=== PATIENT | female | born 1940 | race Caucasian/White ===

== ENCOUNTER 2017-10-13 19:45 | Emergency (ER) | payer MEDICARE, OTHER, MEDICAID ==
--- NOTE | 2017-10-13 20:28 | EDM.PDOC ---
ED HPI GENERAL MEDICAL PROBLEM - General Chief Complaint: Upper Extremity Injury/Pain Stated Complaint: shoulder injury Time Seen by Provider: 10/13/17 20:11 Source of Information: Reports: Patient, Family History Limitations: Reports: No Limitations - History of Present Illness INITIAL COMMENTS - FREE TEXT/NARRATIVE: Patient presents with left shoulder pain after falling in her apartment shortly before arrival. She tells me she was on a step-stool reaching something and was stepping down but caught her foot in between the first and second steps and fell on her left arm under her anterior torso. She denies any LOC or other injuries or pain. 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 She also had CABG/valve replacement and has been told she is not a surgical candidate. - Related Data Allergies Allergy/AdvReac Type Severity Reaction Status Date / Time latex Allergy Rash Verified 10/13/17 20:45 Home Meds: Home Meds Allopurinol [Zyloprim] 100 mg PO DAILY 09/29/17 [History] Aspirin 81 mg PO DAILY 09/29/17 [History] Calcium Carbonate/Vitamin D3 [Calcium Carbonate/Vitamin D 600 MG-200 Unit] 1 tab PO DAILY 09/29/17 [History] Cranberry Fruit Concentrate [Cranberry] 900 mg PO DAILY 09/29/17 [History] Docusate Sodium [Colace] 100 mg PO BID 09/29/17 [History] Dulaglutide [Trulicity] 0.5 ml SUBCUT WEEKLY 09/29/17 [History] Fenofibrate 160 mg PO DAILY 09/29/17 [History] Furosemide 20 mg pe PO ASDIRECTED 09/29/17 [History] Hydrocodone/Acetaminophen [Hydrocodon-Acetaminophen 5-325] 1 - 2 tab PO Q4H PRN 09/29/17 [History] Losartan [Cozaar] 25 mg PO DAILY 09/29/17 [History] Metoprolol Tartrate 100 mg PO BID 09/29/17 [History] Multivitamin [Multivitamins] 1 cap PO DAILY 09/29/17 [History] OLANZapine [ZyPREXA] 10 mg PO ASDIRECTED 09/29/17 [History] Omeprazole 20 mg PO Q2D 09/29/17 [History] Ondansetron [Zofran Odt] 8 mg PO Q6H PRN 09/29/17 [History] Polyethylene Glycol 3350 [MiraLAX] 17 gm PO DAILY 09/29/17 [History] Prochlorperazine [Compazine] 10 mg PO QID PRN 09/29/17 [History] Sennosides [Senokot] 8.6 mg PO DAILY 09/29/17 [History] Sertraline HCl 100 mg PO DAILY 09/29/17 [History] Simvastatin [Zocor] 40 mg PO DAILY 09/29/17 [History] Past Medical History HEENT History: Reports: Impaired Vision Other HEENT History: diabetic retinopathy Cardiovascular History: Reports: CAD, High Cholesterol, Hypertension Other Cardiovascular History: atrial flutter. aortic stenosis Gastrointestinal History: Reports: GERD Genitourinary History: Reports: Chronic Renal Insuffiency Other Genitourinary History: OVER ACTIVE BLADDER. 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 PERITONEAL - Infectious Disease History Infectious Disease History: Reports: Measles, Mumps - Past Surgical History Head Surgeries/Procedures: Reports: None HEENT Surgical History: Reports: None Cardiovascular Surgical History: Reports: Valve Replacement Other Cardiovascular Surgeries/Procedures: CABG. AORTIC VALVE REPLACEMENT GI Surgical History: Reports: Colostomy Female Surgical History: Reports: D&C, Hysterectomy, Salpingo-Oophorectomy Other Female Surgeries/Procedures: NODE DISSECTION Endocrine Surgical History: Reports: None Musculoskeletal Surgical History: Reports: None Social & Family History - Caffeine Use Caffeine Use: Reports: Coffee, Soda Other Caffeine Use: diet Review of Systems - Review of Systems Review Of Systems: See Below Constitutional: Denies: Chills, Fever, Weakness Eyes: Denies: Vision Change Ears: Denies: Dizziness, Pain Nose: Reports: No Symptoms Mouth/Throat: Reports: No Symptoms Respiratory: Reports: No Symptoms. Denies: Shortness of Breath Cardiovascular: Reports: No Symptoms. Denies: Chest Pain, Lightheadedness, Syncope GI/Abdominal: Denies: Nausea, Vomiting Genitourinary: Denies: Incontinence Musculoskeletal: Reports: Shoulder Pain. Denies: Neck Pain, Back Pain, Hand Pain, Leg Pain Skin: Reports: Bruising Neurological: Denies: Confusion, Dizziness, Headache, Numbness, Seizure, Syncope , Trouble Speaking, Difficulty Walking, Weakness Psychiatric: Denies: Confusion, Anxiety, Agitation ED EXAM, GENERAL - Physical Exam Exam: See Below Exam Limited By: No Limitations General Appearance: Alert, WD/WN, No Apparent Distress Eye Exam: Bilateral Eye: EOMI, Normal Inspection, PERRL Ears: Normal External Exam, Hearing Grossly Normal Nose: Normal Inspection, No Blood Throat/Mouth: Normal Inspection, Normal Lips, Normal Voice, No Airway Compromise Head: Atraumatic, Normocephalic Neck: Normal Inspection, Supple, Non-Tender, Full Range of Motion. No: Tender Lateral, Tender Midline Respiratory/Chest: No Respiratory Distress, Lungs Clear, Normal Breath Sounds, No Accessory Muscle Use Cardiovascular: Regular Rate, Rhythm, No Murmur GI/Abdominal: Normal Bowel Sounds, Soft, Non-Tender, No Organomegaly, No Distention Extremities: Other (Left arm is held close to torso. No obvious deformity but tender to touch in proximal humerus and painful with any movement of upper arm. Hand manager publishing and finger extension is 5/5. Distal CMS is intact throughout.) Neurological: Alert, Oriented, Normal Cognition, No Motor/Sensory Deficits Psychiatric: Normal Affect, Normal Mood Skin Exam: Warm, Dry, Intact, Normal Color, No Rash Course - Vital Signs Last Recorded V/S: Last Vital Signs Temp 98.6 F 10/13/17 20:15 Pulse 80 10/13/17 20:15 Resp 18 10/13/17 20:15 BP 171/40 H 10/13/17 20:15 Pulse Ox 92 L 10/13/17 20:15 - Orders/Labs/Meds Orders: Active Orders 24 hr Category Date Time Status Humerus Lt [CR] Stat Exams 10/13/17 20:23 Ordered Shoulder Comp Lt [CR] Stat Exams 10/13/17 19:49 Ordered - Re-Assessments/Exams Free Text/Narrative Re-Assessment/Exam: 10/13/17 20:57 Xrays show a displaced left humeral head fracture/impaction with possible anterior dislocation of the humeral head. Radiologist is uncertain if it is dislocated or just the fracture fragment. I called [facility] to consult ortho and am waiting for their call back. Patient is comfortable as long as she isn't moving her arm. 10/13/17 23:19 Radiologist confident there is no dislocation after reviewing both shoulder and humerus films. There have been technical difficulties getting the xrays to [facility] but should be done now and am waiting for the ortho surgeon to call me back. 10/13/17 23:44 Dr. Singer (ortho) called and we discussed case. Will immobilize shoulder and control pain. Patient will follow up with Dr. Singer on Wednesday here in his [facility] clinic. Patient remained stable and discharged to home with two nieces to help her. Departure - Departure Time of Disposition: 23:41 Disposition: Home, Self-Care 01 Condition: Good Clinical Impression: Closed fracture of left proximal humerus Qualifiers: Encounter type: initial encounter Fracture morphology: other fracture Fracture alignment: displaced Qualified Code(s): S42.292A - Other displaced fracture of upper end of left humerus, initial encounter for closed fracture - Discharge Information Instructions: Humerus Fracture Treated With Immobilization Forms: ED Department Discharge Additional Instructions: 1. Keep immobilizer on arm at all times except for showering or dressing. 2. Use the pain medications as directed. 3. Tomorrow morning call [facility] to make appt with Dr. Singer on Wednesday for orthopedic consultation. - My Orders Last 24 Hours: My Active Orders 10/13/17 19:49 Shoulder Comp Lt [CR] Stat 10/13/17 20:23 Humerus Lt [CR] Stat - Assessment/Plan Last 24 Hours: My Active Orders 10/13/17 19:49 Shoulder Comp Lt [CR] Stat 10/13/17 20:23 Humerus Lt [CR] Stat
[2017-10-13 20:45] VITALS: BP 171/40
== END 2017-10-13 23:55 | disposition home or self-care (01) ==
LOC: KA.ED 19:45
DX: S42.202A Unspecified fracture of upper end of left humerus, initial encounter for closed fracture (principal); W23.1XXA Caught, crushed, jammed, or pinched between stationary objects, initial encounter; E11.319 Type 2 diabetes mellitus with unspecified diabetic retinopathy without macular edema; K21.9 Gastro-esophageal reflux disease without esophagitis; I12.9 Hypertensive chronic kidney disease with stage 1 through stage 4 chronic kidney disease, or unspecified chronic kidney disease; E11.22 Type 2 diabetes mellitus with diabetic chronic kidney disease; N18.3 Chronic kidney disease, stage 3 (moderate); E78.00 Pure hypercholesterolemia, unspecified; Z79.82 Long term (current) use of aspirin; Z79.899 Other long term (current) drug therapy; Z91.040 Latex allergy status; W17.89XA Other fall from one level to another, initial encounter
CPT/HCPCS: 73030-LT; 73060-LT; 99284

== ENCOUNTER 2017-10-14 14:19 | Inpatient (IN) | payer MEDICARE, OTHER, MEDICAID ==
[2017-10-14] MEDS ORDERED: Aspirin 81 MG Tab.EC PO SCH (21:00)
[2017-10-14] MEDS ORDERED: Non-Formulary Medication 1 Each (Metoprolol Tartrate 100 MG) PO SCH (21:00)
[2017-10-14] MEDS: Aspirin 81 MG Tab.EC PO SCH (21:51)
[2017-10-14] MEDS: Acetaminophen/HYDROcodone 325-5 MG Tab PO PRN (21:51)
[2017-10-14] MEDS: Metoprolol Tartrate 50 MG Tab PO SCH (21:52)
[2017-10-14] MEDS: Cranberry Ext/C/L. Sporogenes Tab PO SCH (21:55)
[2017-10-15] MEDS: Acetaminophen/HYDROcodone 325-5 MG Tab PO PRN ×3 (06:10→20:24)
[2017-10-15] MEDS: Multivitamins with Minerals/Iron/Folic Acid/Lycopene Tab PO SCH (08:41)
[2017-10-15] MEDS: Losartan 25 MG Tab PO SCH (08:41)
[2017-10-15] MEDS: Furosemide 20 MG Tab PO SCH (08:41)
[2017-10-15] MEDS: Allopurinol 100 MG Tab PO SCH (08:42)
[2017-10-15] MEDS: Insulin Detemir 100 Units/ML 3 ML Pen SUBCUT SCH (08:42)
[2017-10-15] MEDS: Metoprolol Tartrate 50 MG Tab PO SCH ×2 (08:42→21:04)
[2017-10-15] MEDS ORDERED: Losartan 25 MG Tab PO SCH (09:00)
[2017-10-15] MEDS ORDERED: OLANZapine 5 MG Tab PO SCH (09:00)
[2017-10-15] MEDS ORDERED: Allopurinol 100 MG Tab PO SCH (09:00)
--- NOTE | 2017-10-15 10:05 | PCM.HP ---
H&P History of Present Illness - General Date of Service: 10/15/17 Admit Problem/Dx: Admission Diagnosis/Problem Admission Diagnosis/Problem Fracture of left humerus Source of Information: Patient, Old Records, RN History Limitations: Reports: No Limitations - History of Present Illness Initial Comments - Free Text/Narative: 76-year-old female was excepted directly into residential facility [facility] here after she sustained a traumatic left humeral fracture after a fall. Patient was stepping on a stepstool doing some overhead reaching and getting her feet caught between the steps landing on her anterior torso. She had no loss of consciousness she did not hit her head. 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 She is due to have intraperitoneal Pleurx catheter placed. Left Arm Pain Score (Numeric/FACES): 5 Lower Back Pain Score (Numeric/FACES): 6 - Related Data Allergies/Adverse Reactions: Allergies Allergy/AdvReac Type Severity Reaction Status Date / Time latex Allergy Rash Verified 10/14/17 14:44 Home Medications: Home Meds Allopurinol [Zyloprim] 100 mg PO DAILY 09/29/17 [History] Cranberry Fruit Concentrate [Cranberry] 900 mg PO BEDTIME 09/29/17 [History] Furosemide 20 mg PO DAILY 09/29/17 [History] Hydrocodone/Acetaminophen [Hydrocodon-Acetaminophen 5-325] 1 - 2 tab PO Q4H PRN 09/29/17 [History] Losartan [Cozaar] 25 mg PO DAILY 09/29/17 [History] Metoprolol Tartrate 100 mg PO BID 09/29/17 [History] Multivitamin [Multivitamins] 1 cap PO DAILY 09/29/17 [History] OLANZapine [ZyPREXA] 10 mg PO ASDIRECTED 09/29/17 [History] Omeprazole 20 mg PO SUTUTHSA@2100 09/29/17 [History] Polyethylene Glycol 3350 [MiraLAX] 17 gm PO DAILY PRN 09/29/17 [History] Prochlorperazine [Compazine] 10 mg PO QID PRN 09/29/17 [History] Sennosides [Senokot] 8.6 mg PO DAILY 09/29/17 [History] Sertraline HCl 100 mg PO BEDTIME 09/29/17 [History] Simvastatin [Zocor] 40 mg PO BEDTIME 09/29/17 [History] Aspirin [Halfprin] 81 mg PO BEDTIME 10/14/17 [History] Furosemide 20 mg PO SUTUTHSA@1700 10/14/17 [History] Insulin Degludec [Tresiba Flextouch U-100] 44 units SUBCUT DAILY 10/14/17 [ History] Ondansetron HCl [Ondansetron] 8 mg PO TID PRN 10/14/17 [History] Sennosides/Docusate Sodium [Senna Plus Tablet] 1 tab PO BEDTIME 10/14/17 [ History] Past Medical History HEENT History: Reports: Impaired Vision Other HEENT History: diabetic retinopathy Cardiovascular History: Reports: CAD, High Cholesterol, Hypertension Other Cardiovascular History: atrial flutter. aortic stenosis Gastrointestinal History: Reports: GERD Genitourinary History: Reports: Chronic Renal Insuffiency Other Genitourinary History: OVER ACTIVE BLADDER. 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 PERITONEAL - Infectious Disease History Infectious Disease History: Reports: Measles, Mumps - Past Surgical History Head Surgeries/Procedures: Reports: None HEENT Surgical History: Reports: None Cardiovascular Surgical History: Reports: Valve Replacement Other Cardiovascular Surgeries/Procedures: CABG. AORTIC VALVE REPLACEMENT GI Surgical History: Reports: Colostomy Female Surgical History: Reports: D&C, Hysterectomy, Salpingo-Oophorectomy Other Female Surgeries/Procedures: NODE DISSECTION Endocrine Surgical History: Reports: None Musculoskeletal Surgical History: Reports: None Social & Family History - Family History HEENT: Reports: None Cardiac: Reports: None Respiratory: Reports: None GI: Reports: None : Reports: None OBGYN: Reports: None Musculoskeletal: Reports: None Neurological: Reports: None Psychiatric: Reports: None Endocrine/Metabolic: Reports: None Hematologic: Reports: None Immunologic: Reports: None Dermatologic: Reports: None Oncologic: Reports: None, Colon (Father of colon cancer mid 70s, sister unknown cancer in her 50s also half sister with unknown cancer of the brain ) - Tobacco Use Smoking Status *Q: Never Smoker Second Hand Smoke Exposure: Yes - Caffeine Use Caffeine Use: Reports: Coffee, Soda Other Caffeine Use: diet - Recreational Drug Use Recreational Drug Use: No H&P Review of Systems - Review of Systems: Review Of Systems: See Below General: Reports: Weight Gain HEENT: Reports: No Symptoms Pulmonary: Reports: Wheezing. Denies: Shortness of Breath, Cough, Sputum Cardiovascular: Reports: Dyspnea on Exertion, Edema. Denies: Chest Pain Gastrointestinal: Reports: Constipation Genitourinary: Reports: Incontinence Musculoskeletal: Reports: Shoulder Pain Skin: Reports: Bruising, Change in Color. Denies: Pallor, Wound Psychiatric: Reports: No Symptoms Neurological: Reports: No Symptoms Hematologic/Lymphatic: Reports: Easy Bruising Immunologic: Reports: Other (Hx allergy) Exam - Exam Exam: See Below - Vital Signs Vital Signs: Last Vital Signs Temp 99.2 F 10/15/17 06:16 Pulse 72 10/15/17 08:42 Resp 18 10/15/17 06:16 BP 136/50 L 10/15/17 08:42 Pulse Ox 98 10/15/17 06:16 Weight: 229 lb 6.4 oz - Exam Quality Assessment: No: Supplemental Oxygen General: Alert HEENT: EACs Clear, Mucosa Moist & [place] Neck: Supple. No: JVD Lungs: Clear to Auscultation, Normal Respiratory Effort Cardiovascular: Regular Rate, Regular Rhythm GI/Abdominal Exam: Soft, No Mass, Other (Decreased bowel tones) (Female) Exam: Deferred Back Exam: No: CVA Tenderness (L), CVA Tenderness (R) Extremities: Pedal Edema (3+ BLE) Skin: Ecchymosis (Bruising left shoulder, right scapular) Neurological: Cranial Nerves Intact Neuro Extensive - Mental Status: Alert, Oriented x3, Normal Mood/Affect, Normal Cognition Neuro Extensive - Motor, Sensory, Reflexes: CN II-XII Intact Psychiatric: Alert, Normal Affect, Normal Mood - Patient Data Lab Results Last 24 hrs: Laboratory Results - last 24 hr 10/15/17 Range/Units 07:09 POC Glucose 221 H (74-106) mg/dl Problem List Initiated/Reviewed/Updated: Yes Orders Last 24hrs: Active Orders 24 hr Category Date Time Status Patient Status [ADT] Routine ADT 10/14/17 14:22 Ordered Ambulate [RC] DAILY Care 10/14/17 14:22 Active Blood Glucose Check, Bedside [RC] 0700 Care 10/14/17 18:33 Active Height and Weight [RC] TH Care 10/14/17 14:25 Active Immobilizer [RC] CONTINUOUS Care 10/14/17 18:28 Active Intake and Output [RC] 1400,2200,0600 Care 10/14/17 14:22 Active May Shower [RC] ASDIRECTED Care 10/14/17 14:22 Active Oxygen Therapy [RC] PRN Care 10/14/17 14:22 Active Up With Assistance [RC] DAILY Care 10/14/17 14:22 Active Up to Chair [RC] DAILY Care 10/14/17 14:22 Active VTE/DVT Education [RC] PER UNIT ROUTINE Care 10/14/17 14:22 Active Vital Signs [RC] 0700,1500 Care 10/14/17 14:22 Active Consult to Physical Therapy [PT Evaluation and Cons 10/15/17 08:08 Active Treatment] [CONS] Routine [employer] Diet [DIET] Diet 10/14/17 Dinner Active Acetaminophen/HYDROcodone [[place] 325-5 MG] Med 10/14/17 15:17 Active 1 tab PO Q4H PRN Allopurinol [Zyloprim] Med 10/15/17 09:00 Active 100 mg PO DAILY Aspirin [Halfprin] Med 10/14/17 21:00 Active 81 mg PO BEDTIME Cranberry Ext/C/L. Sporogenes [Azo Cranberry] Med 10/14/17 21:00 Active 2 each PO BEDTIME FA/Lycopene/Lut/MV,Ca,Iron,Min [Centrum] Med 10/15/17 09:00 Active 1 tab PO DAILY Furosemide [Lasix] Med 10/15/17 09:00 Active 20 mg PO DAILY Insulin Detemir [Levemir] Med 10/15/17 09:00 Active 44 unit SUBCUT DAILY Losartan [Cozaar] Med 10/15/17 09:00 Active 25 mg PO DAILY Metoprolol Tartrate [Lopressor] Med 10/14/17 21:00 Active 100 mg PO BID OLANZapine [ZyPREXA] Med 10/15/17 23:00 Active 10 mg PO 2300 Resuscitation Status Routine Resus Stat 10/14/17 16:29 Ordered Medication Orders Hydrocodone Bitart/Acetaminophen ([place] 325-5 Mg) 1 tab PO Q4H PRN PRN Reason: Pain Last Admin: 10/15/17 06:10 Dose: 1 tab Admin: 10/14/17 21:51 Dose: 1 tab Allopurinol (Zyloprim) 100 mg PO DAILY [facility] Last Admin: 10/15/17 08:42 Dose: 100 mg Aspirin (Halfprin) 81 mg PO BEDTIME [facility] Last Admin: 10/14/17 21:51 Dose: 81 mg Cranberry (Azo Cranberry) 2 each PO BEDTIME [facility] Last Admin: 10/14/17 21:55 Dose: Furosemide (Lasix) 20 mg PO DAILY [facility] Last Admin: 10/15/17 08:41 Dose: 20 mg Insulin Detemir (Levemir) 44 unit SUBCUT DAILY [facility] Last Admin: 10/15/17 08:42 Dose: 44 units Losartan Potassium (Cozaar) 25 mg PO DAILY [facility] Last Admin: 10/15/17 08:41 Dose: 25 mg Metoprolol Tartrate (Lopressor) 100 mg PO BID [facility] Last Admin: 10/15/17 08:42 Dose: 100 mg Admin: 10/14/17 21:52 Dose: 100 mg Multivitamins/Minerals (Centrum) 1 tab PO DAILY [facility] Last Admin: 10/15/17 08:41 Dose: 1 tab Olanzapine (Zyprexa) 10 mg PO 2300 [facility] Stop: 10/17/17 23:59 Assessment/Plan Comment:: HISTORY OF PRESENT ILLNESS 76-year-old female was excepted directly into residential facility [facility] here after she sustained a traumatic left humeral fracture after a fall. Patient was stepping on a stepstool doing some overhead reaching and getting her feet caught between the steps landing on her anterior torso. She had no loss of consciousness she did not hit her head. 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 She is due to have intraperitoneal Pleurx catheter placed. Pertinent ED workup Xrays show a displaced left humeral head fracture/impaction with possible anterior dislocation of the humeral head. Initially Radiologist was uncertain of dislocation however eventually concluded there was no dislocation involved Primary problem Left humeral fracture, sling and swath, PT evaluation Constipation, add senna S, and PRN MOM Bilateral leg edema, significant, no evidence of CHF Chronic problems stage IV Ovaian/uterus CA; T2 DM HLD HTN Aortic stenosis Hx CABG/valve replacement CAD Chronic kidney disease stage III Diabetic retinopathy Overactive bladder Obesity, BMI 40 Depression Reflux disease Osteoarthritis Consultations Dr. Singer on Wednesday for orthopedic consultation DR Gold Payton for Ultrasound Guided Paracentesis next week Overall plan, PT evaluation Keep immobilizer on arm at all times except for showering and/or ADL, orthopedic consultation at the clinic October 18, constipation prophylaxis, pain control measures, ,
[2017-10-15] MEDS: Cranberry Ext/C/L. Sporogenes Tab PO SCH (21:03)
[2017-10-15] MEDS: Aspirin 81 MG Tab.EC PO SCH (21:04)
[2017-10-15] MEDS: OLANZapine 5 MG Tab PO SCH (22:43)
[2017-10-16] MEDS: Furosemide 20 MG Tab PO SCH ×2 (08:49→17:03)
[2017-10-16] MEDS: Losartan 25 MG Tab PO SCH (08:49)
[2017-10-16] MEDS: Metoprolol Tartrate 50 MG Tab PO SCH ×2 (08:49→21:00)
[2017-10-16] MEDS: Multivitamins with Minerals/Iron/Folic Acid/Lycopene Tab PO SCH (08:50)
[2017-10-16] MEDS: Allopurinol 100 MG Tab PO SCH (08:50)
[2017-10-16] MEDS: Insulin Detemir 100 Units/ML 3 ML Pen SUBCUT SCH (08:50)
[2017-10-16] MEDS ORDERED: Magnesium Hydroxide 400 MG/5 ML Susp 30 ML Cup PO PRN (10:15)
[2017-10-16] MEDS: Acetaminophen/HYDROcodone 325-5 MG Tab PO PRN ×2 (13:45→23:13)
[2017-10-16] MEDS: Cranberry Ext/C/L. Sporogenes Tab PO SCH (20:59)
[2017-10-16] MEDS: Aspirin 81 MG Tab.EC PO SCH (21:01)
[2017-10-16] MEDS: OLANZapine 5 MG Tab PO SCH (23:13)
[2017-10-17] MEDS: Allopurinol 100 MG Tab PO SCH (09:27)
[2017-10-17] MEDS: Furosemide 20 MG Tab PO SCH ×2 (09:27→16:15)
[2017-10-17] MEDS: Multivitamins with Minerals/Iron/Folic Acid/Lycopene Tab PO SCH (09:27)
[2017-10-17] MEDS: Metoprolol Tartrate 50 MG Tab PO SCH ×2 (09:28→21:17)
[2017-10-17] MEDS: Losartan 25 MG Tab PO SCH (09:28)
[2017-10-17] MEDS: Insulin Detemir 100 Units/ML 3 ML Pen SUBCUT SCH (09:28)
[2017-10-17] MEDS: Acetaminophen/HYDROcodone 325-5 MG Tab PO PRN ×3 (09:36→21:30)
[2017-10-17] MEDS: Cranberry Ext/C/L. Sporogenes Tab PO SCH (21:15)
[2017-10-17] MEDS: Aspirin 81 MG Tab.EC PO SCH (21:16)
[2017-10-17] MEDS: OLANZapine 5 MG Tab PO SCH (22:27)
--- NOTE | 2017-10-18 08:33 | PCM.OPNOTE ---
- General Post-Op/Procedure Note Date of Surgery/Procedure: 10/18/17 Pre Op Diagnosis: Malignant Effusion. Anesthesia Technique: Other (see below) Primary Surgeon: Lisa Payton Condition: Good Free Text/Narrative:: Intake & Output 10/17/17 10/18/17 10/18/17 22:59 06:59 14:59 Intake Total 780 0 Balance 780 0
[2017-10-18] MEDS: Allopurinol 100 MG Tab PO SCH (09:25)
[2017-10-18] MEDS: Metoprolol Tartrate 50 MG Tab PO SCH ×2 (09:25→20:55)
[2017-10-18] MEDS: Losartan 25 MG Tab PO SCH (09:25)
[2017-10-18] MEDS: Multivitamins with Minerals/Iron/Folic Acid/Lycopene Tab PO SCH (09:25)
[2017-10-18] MEDS: Furosemide 20 MG Tab PO SCH (09:26)
[2017-10-18] MEDS: Insulin Detemir 100 Units/ML 3 ML Pen SUBCUT SCH (09:26)
[2017-10-18] MEDS: Acetaminophen/HYDROcodone 325-5 MG Tab PO PRN (20:55)
[2017-10-18] MEDS: Aspirin 81 MG Tab.EC PO SCH (20:55)
[2017-10-18] MEDS: Cranberry Ext/C/L. Sporogenes Tab PO SCH (20:55)
[2017-10-19] MEDS: Acetaminophen/HYDROcodone 325-5 MG Tab PO PRN ×2 (02:26→06:33)
[2017-10-19] MEDS: Insulin Detemir 100 Units/ML 3 ML Pen SUBCUT SCH (08:31)
[2017-10-19] MEDS: Furosemide 20 MG Tab PO SCH ×2 (08:32→16:35)
[2017-10-19] MEDS: Multivitamins with Minerals/Iron/Folic Acid/Lycopene Tab PO SCH (08:33)
[2017-10-19] MEDS: Allopurinol 100 MG Tab PO SCH (08:34)
[2017-10-19] MEDS: Losartan 25 MG Tab PO SCH (08:35)
[2017-10-19] MEDS: Metoprolol Tartrate 50 MG Tab PO SCH ×2 (08:35→21:48)
--- NOTE | 2017-10-19 11:38 | PCM.PN ---
- General Info Date of Service: 10/19/17 Functional Status: Reports: Tolerating Diet, Ambulating. Denies: Pain Controlled, New Symptoms - Review of Systems General: Reports: Weakness HEENT: Reports: No Symptoms Pulmonary: Reports: No Symptoms Cardiovascular: Reports: Edema Gastrointestinal: Reports: Constipation Genitourinary: Reports: Incontinence Musculoskeletal: Reports: Back Pain Skin: Reports: No Symptoms Neurological: Reports: Weakness Psychiatric: Reports: Anxiety - Patient Data Vitals - Most Recent: Last Vital Signs Temp 98.7 F 10/19/17 06:04 Pulse 72 10/19/17 08:35 Resp 18 10/19/17 06:04 BP 135/76 10/19/17 08:35 Pulse Ox 93 L 10/19/17 08:55 Weight - Most Recent: 229 lb 6.4 oz I&O - Last 24 Hours: Intake & Output 10/18/17 10/19/17 10/19/17 22:59 06:59 14:59 Intake Total 750 50 Balance 750 50 Lab Results Last 24 Hours: Laboratory Results - last 24 hr 10/19/17 10/19/17 10/19/17 Range/Units 06:36 07:00 07:00 WBC 5.0 (5.0-10.0) 10^3/uL RBC 2.42 L (3.80-5.50) 10^6/uL Hgb 7.5 L D (12.0-16.0) g/dL Hct 23.1 L (37.0-47.0) % MCV 95.3 H (82.0-92.0) fL MCH 30.9 (27.0-31.0) pg MCHC 32.4 (32.0-36.0) g/dL RDW 14.9 H (11.5-14.5) % Plt Count 79 L (150-300) 10^3/uL MPV 11.0 H (7.4-10.4) fL Neut % (Auto) 57.0 (50.0-70.0) % Lymph % (Auto) 33.9 (20.0-40.0) % [place] % (Auto) 5.6 (2.0-8.0) % Eos % (Auto) 2.3 (1.0-3.0) % Baso % (Auto) 1.2 H (0.0-1.0) % Neut # (Auto) 2.8 (2.5-7.0) 10^3/uL Lymph # (Auto) 1.7 (1.0-4.0) 10^3/uL [place] # (Auto) 0.3 (0.1-0.8) 10^3/uL Eos # (Auto) 0.1 (0.1-0.3) 10^3/uL Baso # (Auto) 0.1 (0.0-0.1) 10^3/uL Sodium 141 (136-145) mmol/L Potassium 4.2 (3.3-5.3) mmol/L Chloride 105 (98-115) mmol/L Carbon Dioxide 26.4 (21.0-32.0) mmol/L BUN 32 H (6-25) mg/dL Creatinine 1.40 H (0.51-1.17) mg/dL Est Cr Clr Drug Dosing 28.28 mL/min Estimated GFR (MDRD) 37 mL/min Glucose 98 (70-110) mg/dL POC Glucose 76 (74-106) mg/dl Calcium 9.0 (8.7-10.3) mg/dL Total Bilirubin 0.7 (0.2-1.0) mg/dL AST 36 (15-37) U/L ALT 26 (12-78) U/L Alkaline Phosphatase 41 L (46-116) IU/L Total Protein 6.2 L (6.4-8.2) g/dL Albumin 2.36 L (3.00-4.80) g/dL 10/19/17 Range/Units 07:41 WBC (5.0-10.0) 10^3/uL RBC (3.80-5.50) 10^6/uL Hgb (12.0-16.0) g/dL Hct (37.0-47.0) % MCV (82.0-92.0) fL MCH (27.0-31.0) pg MCHC (32.0-36.0) g/dL RDW (11.5-14.5) % Plt Count (150-300) 10^3/uL MPV (7.4-10.4) fL Neut % (Auto) (50.0-70.0) % Lymph % (Auto) (20.0-40.0) % [place] % (Auto) (2.0-8.0) % Eos % (Auto) (1.0-3.0) % Baso % (Auto) (0.0-1.0) % Neut # (Auto) (2.5-7.0) 10^3/uL Lymph # (Auto) (1.0-4.0) 10^3/uL [place] # (Auto) (0.1-0.8) 10^3/uL Eos # (Auto) (0.1-0.3) 10^3/uL Baso # (Auto) (0.0-0.1) 10^3/uL Sodium (136-145) mmol/L Potassium (3.3-5.3) mmol/L Chloride (98-115) mmol/L Carbon Dioxide (21.0-32.0) mmol/L BUN (6-25) mg/dL Creatinine (0.51-1.17) mg/dL Est Cr Clr Drug Dosing mL/min Estimated GFR (MDRD) mL/min Glucose (70-110) mg/dL POC Glucose 149 H (74-106) mg/dl Calcium (8.7-10.3) mg/dL Total Bilirubin (0.2-1.0) mg/dL AST (15-37) U/L ALT (12-78) U/L Alkaline Phosphatase (46-116) IU/L Total Protein (6.4-8.2) g/dL Albumin (3.00-4.80) g/dL Med Orders - Current: Current Medications Hydrocodone Bitart/Acetaminophen ([place] 325-5 Mg) 1 tab PO Q4H PRN PRN Reason: Pain Last Admin: 10/19/17 06:33 Dose: 1 tab Allopurinol (Zyloprim) 100 mg PO DAILY KIERA Last Admin: 10/19/17 08:34 Dose: 100 mg Aspirin (Halfprin) 81 mg PO BEDTIME KIERA Last Admin: 10/18/17 20:55 Dose: 81 mg Cranberry (Azo Cranberry) 2 each PO BEDTIME KIERA Last Admin: 10/18/17 20:55 Dose: 2 each Furosemide (Lasix) 20 mg PO DAILY KIERA Last Admin: 10/19/17 08:32 Dose: 20 mg Furosemide (Lasix) 20 mg PO SUTUTHSA@1700 [facility] Last Admin: 10/17/17 16:15 Dose: 20 mg Insulin Detemir (Levemir) 44 unit SUBCUT DAILY [facility] Last Admin: 10/19/17 08:31 Dose: 44 units Losartan Potassium (Cozaar) 25 mg PO DAILY [facility] Last Admin: 10/19/17 08:35 Dose: 25 mg Magnesium Hydroxide (Milk Of Magnesia) 30 ml PO DAILY PRN PRN Reason: Constipation Last Admin: 10/16/17 13:45 Dose: 30 ml Metoprolol Tartrate (Lopressor) 100 mg PO BID [facility] Last Admin: 10/19/17 08:35 Dose: 100 mg Multivitamins/Minerals (Centrum) 1 tab PO DAILY [facility] Last Admin: 10/19/17 08:33 Dose: 1 tab Senna/Docusate Sodium (Senna Plus) 1 tab PO BID [facility] Last Admin: 10/19/17 08:33 Dose: 1 tab Discontinued Medications Olanzapine (Zyprexa) 10 mg PO DAILY [facility] Stop: 10/17/17 23:00 Last Admin: 10/15/17 09:17 Dose: Not Given Olanzapine (Zyprexa) 10 mg PO 2300 [facility] Stop: 10/17/17 23:59 Last Admin: 10/17/17 22:27 Dose: 10 mg Senna/Docusate Sodium (Senna Plus) 1 tab PO DAILY [facility] Last Admin: 10/16/17 08:50 Dose: 1 tab - Exam Quality Assessment: No: Supplemental Oxygen General: Alert, Oriented, No Acute Distress Neck: No JVD Lungs: Clear to Auscultation, Normal Respiratory Effort Cardiovascular: Regular Rate, Regular Rhythm GI/Abdominal Exam: No: Distended Extremities: Pedal Edema Neurological: No New Focal Deficit Psy/Mental Status: Alert, Normal Affect, Normal Mood. No: Anxious - Problem List Review Problem List Initiated/Reviewed/Updated: Yes - Plan Plan:: HISTORY OF PRESENT ILLNESS 76-year-old female was excepted directly into correction facility [facility] here after she sustained a traumatic left humeral fracture after a fall. Patient was stepping on a stepstool doing some overhead reaching and getting her feet caught between the steps landing on her anterior torso. She had no loss of consciousness she did not hit her head. 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 She is due to have intraperitoneal Pleurx catheter placed. Pertinent ED workup Xrays show a displaced left humeral head fracture/impaction with possible anterior dislocation of the humeral head. Initially Radiologist was uncertain of dislocation however eventually concluded there was no dislocation involved Primary problem Left humeral fracture, sling and swath, PT evaluation Constipation, OIC, change to Movantik, Bilateral leg edema, significant, no evidence of CHF Anemia, Chronic problems stage IV Ovaian/uterus CA; T2 DM HLD HTN Aortic stenosis Hx CABG/valve replacement CAD Chronic kidney disease stage III Diabetic retinopathy Overactive bladder Obesity, BMI 40 Depression Reflux disease Osteoarthritis Consultations Had appointment with orthopedic surgeon 10/18/2017 Overall plan, add iron, add Movantik, monitor hemoglobin, may need transfusion, add when necessary lorazepam low-dose, PT evaluation Keep immobilizer on arm at all times except for showering and/or ADL, add Tylenol scheduled, change hydrocodone to oxycodone scheduled.
[2017-10-19] MEDS ORDERED: Iron Polysaccharides Complex 150 MG Cap PO SCH (11:45)
[2017-10-19] MEDS ORDERED: Naloxegol Oxalate 25 MG Tab PO SCH (11:45)
[2017-10-19] MEDS ORDERED: LORazepam 0.5 MG Tab PO PRN (11:45)
[2017-10-19] MEDS ORDERED: Acetaminophen 500 MG Tab PO SCH (12:00)
[2017-10-19] MEDS: Acetaminophen 500 MG Tab PO SCH ×2 (13:41→21:41)
[2017-10-19] MEDS: oxyCODONE 5 MG Tab PO SCH ×3 (13:44→22:53)
[2017-10-19] MEDS: Nystatin Topical Powder 15 GM Bottle TOP SCH ×2 (18:25→21:43)
[2017-10-19] MEDS: Cranberry Ext/C/L. Sporogenes Tab PO SCH (21:40)
[2017-10-19] MEDS: Aspirin 81 MG Tab.EC PO SCH (21:42)
[2017-10-20] MEDS: Nystatin Topical Powder 15 GM Bottle TOP SCH (05:50)
[2017-10-20] MEDS: Acetaminophen 500 MG Tab PO SCH (05:50)
[2017-10-20] MEDS: oxyCODONE 5 MG Tab PO SCH (05:51)
[2017-10-20] MEDS ORDERED: OLANZapine 5 MG Tab PO SCH (23:00)
--- NOTE | 2017-10-21 10:25 | PCM.DCSUM1 ---
Discharge Summary - Discharge Data Discharge Date: 10/20/17 Discharge Disposition: DC/Tfer to Acute Hospital 02 Condition: Good - Patient Summary/Data Consults: Consultations 10/15/17 08:08 Consult to Physical Therapy [PT Evaluation and Treatment] [CONS] Routine - Discharge Plan Home Medications: Home Meds Allopurinol [Zyloprim] 100 mg PO DAILY 09/29/17 [History] Cranberry Fruit Concentrate [Cranberry] 900 mg PO BEDTIME 09/29/17 [History] Furosemide 20 mg PO DAILY 09/29/17 [History] Hydrocodone/Acetaminophen [Hydrocodon-Acetaminophen 5-325] 1 - 2 tab PO Q4H PRN 09/29/17 [History] Losartan [Cozaar] 25 mg PO DAILY 09/29/17 [History] Metoprolol Tartrate 100 mg PO BID 09/29/17 [History] Multivitamin [Multivitamins] 1 cap PO DAILY 09/29/17 [History] OLANZapine [ZyPREXA] 10 mg PO ASDIRECTED 09/29/17 [History] Omeprazole 20 mg PO SUTUTHSA@2100 09/29/17 [History] Polyethylene Glycol 3350 [MiraLAX] 17 gm PO DAILY PRN 09/29/17 [History] Prochlorperazine [Compazine] 10 mg PO QID PRN 09/29/17 [History] Sennosides [Senokot] 8.6 mg PO DAILY 09/29/17 [History] Sertraline HCl 100 mg PO BEDTIME 09/29/17 [History] Simvastatin [Zocor] 40 mg PO BEDTIME 09/29/17 [History] Aspirin [Halfprin] 81 mg PO BEDTIME 10/14/17 [History] Furosemide 20 mg PO SUTUTHSA@1700 10/14/17 [History] Insulin Degludec [Tresiba Flextouch U-100] 44 units SUBCUT DAILY 10/14/17 [ History] Ondansetron HCl [Ondansetron] 8 mg PO TID PRN 10/14/17 [History] Sennosides/Docusate Sodium [Senna Plus Tablet] 1 tab PO BEDTIME 10/14/17 [ History] - Discharge Summary/Plan Comment DC Time >30 min.: No Discharge Summary/Plan Comment: Final diagnosis Anemia Left humeral fracture stage IV Ovaian/uterus CA; Brief history 76-year-old female was excepted directly into shelter facility [facility] here after she sustained a traumatic left humeral fracture after a fall. Patient was stepping on a stepstool doing some overhead reaching and getting her feet caught between the steps landing on her anterior torso. She had no loss of consciousness she did not hit her head. 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 She went to [facility] for scheduled intraperitoneal Pleurx catheter placed and they decided to keep her for blood transfusion chemotherapy and monitoring her after the catheter placed. Hospital course, Hospital course went quite well other than requiring slightly increase in pain medication. hgb did decrease to 7.5 however she was hemodynamically stable. No fever she was released for appointment with Dr. Singer orthopedic surgeon at this time not a surgical candidate, I did add Movantik due to slight opioid induced constipation, placed on iron, sling and swath was kept on, she did receive a therapeutic paracentesis by Dr. Gold Payton. - Patient Data Vitals - Most Recent: Last Vital Signs Temp 97.6 F 10/20/17 06:21 Pulse 74 10/20/17 06:21 Resp 18 10/20/17 06:21 BP 127/46 L 10/20/17 06:21 Pulse Ox 96 10/20/17 06:21 Weight - Most Recent: 229 lb 6.4 oz VERITO Results - Last 24 hrs: Microbiology 10/19/17 16:50 Gram Stain - Final Wound - Buttock, Unspecified Med Orders - Current: Current Medications Discontinued Medications Acetaminophen (Tylenol Extra Strength) 1,000 mg PO Q8H [facility] Acetaminophen (Tylenol Extra Strength) 1,000 mg PO Q8HR [facility] Last Admin: 10/20/17 05:50 Dose: 1,000 mg Hydrocodone Bitart/Acetaminophen ([place] 325-5 Mg) 1 tab PO Q4H PRN PRN Reason: Pain Last Admin: 10/19/17 06:33 Dose: 1 tab Allopurinol (Zyloprim) 100 mg PO DAILY KIERA Last Admin: 10/19/17 08:34 Dose: 100 mg Aspirin (Halfprin) 81 mg PO BEDTIME KIERA Last Admin: 10/19/17 21:42 Dose: Not Given Cranberry (Azo Cranberry) 2 each PO BEDTIME [facility] Last Admin: 10/19/17 21:40 Dose: 2 each Furosemide (Lasix) 20 mg PO DAILY [facility] Last Admin: 10/19/17 08:32 Dose: 20 mg Furosemide (Lasix) 20 mg PO SUTUTHSA@1700 [facility] Last Admin: 10/19/17 16:35 Dose: 20 mg Insulin Detemir (Levemir) 44 unit SUBCUT DAILY [facility] Last Admin: 10/19/17 08:31 Dose: 44 units Lorazepam (Ativan) 0.25 mg PO Q8H PRN PRN Reason: Anxiety Losartan Potassium (Cozaar) 25 mg PO DAILY [facility] Last Admin: 10/19/17 08:35 Dose: 25 mg Magnesium Hydroxide (Milk Of Magnesia) 30 ml PO DAILY PRN PRN Reason: Constipation Last Admin: 10/16/17 13:45 Dose: 30 ml Metoprolol Tartrate (Lopressor) 100 mg PO BID [facility] Last Admin: 10/19/17 21:48 Dose: 100 mg Multivitamins/Minerals (Centrum) 1 tab PO DAILY [facility] Last Admin: 10/19/17 08:33 Dose: 1 tab Naloxegol (Movantik) 25 mg PO DAILY [facility] Last Admin: 10/19/17 13:41 Dose: 25 mg Nystatin (Nystop) 0 gm TOP BID [facility] Last Admin: 10/20/17 05:50 Dose: 1 applic Olanzapine (Zyprexa) 10 mg PO DAILY [facility] Stop: 10/17/17 23:00 Last Admin: 10/15/17 09:17 Dose: Not Given Olanzapine (Zyprexa) 10 mg PO 2300 [facility] Stop: 10/17/17 23:59 Last Admin: 10/17/17 22:27 Dose: 10 mg Olanzapine (Zyprexa) 10 mg PO 2300 [facility] Stop: 10/24/17 02:00 Oxycodone HCl (Oxycodone) 5 mg PO Q6HR [facility] Last Admin: 10/20/17 05:51 Dose: 5 mg Polysaccharide Iron Complex (Ferrex 150) 150 mg PO DAILY [facility] Last Admin: 10/19/17 13:41 Dose: 150 mg Senna/Docusate Sodium (Senna Plus) 1 tab PO DAILY [facility] Last Admin: 10/16/17 08:50 Dose: 1 tab Senna/Docusate Sodium (Senna Plus) 1 tab PO BID [facility]IERA Last Admin: 10/19/17 08:33 Dose: 1 tab Senna/Docusate Sodium (Senna Plus) 1 tab PO BID PRN PRN Reason: Constipation
== END 2017-10-20 06:45 | DRG 560 ==
LOC: KA.MS 14:19
PROVIDERS: ADMIT Nurse Practitioner Family; ATTEND Internal Medicine
PROC: 0W9G3ZZ Drainage of Peritoneal Cavity, Percutaneous Approach (ICD-10-PCS; principal; 2017-10-18)
DX: S42.302D Unspecified fracture of shaft of humerus, left arm, subsequent encounter for fracture with routine healing (principal); C48.2 Malignant neoplasm of peritoneum, unspecified; C79.82 Secondary malignant neoplasm of genital organs; I48.92 Unspecified atrial flutter; J91.0 Malignant pleural effusion; Z68.41 Body mass index [BMI] 40.0-44.9, adult; Z51.5 Encounter for palliative care; R60.9 Edema, unspecified; W11.XXXD Fall on and from ladder, subsequent encounter; K59.03 Drug induced constipation; T40.2X5A Adverse effect of other opioids, initial encounter; E11.319 Type 2 diabetes mellitus with unspecified diabetic retinopathy without macular edema; I25.10 Atherosclerotic heart disease of native coronary artery without angina pectoris; E78.00 Pure hypercholesterolemia, unspecified; K21.9 Gastro-esophageal reflux disease without esophagitis; I12.9 Hypertensive chronic kidney disease with stage 1 through stage 4 chronic kidney disease, or unspecified chronic kidney disease; E11.22 Type 2 diabetes mellitus with diabetic chronic kidney disease; N18.3 Chronic kidney disease, stage 3 (moderate); E66.9 Obesity, unspecified; M19.90 Unspecified osteoarthritis, unspecified site; N32.81 Overactive bladder; F32.9 Major depressive disorder, single episode, unspecified; Z91.040 Latex allergy status; Z79.899 Other long term (current) drug therapy; Z79.4 Long term (current) use of insulin; Z95.1 Presence of aortocoronary bypass graft; Z95.2 Presence of prosthetic heart valve
CPT/HCPCS: 36415; 49082; 80053; 82962; 85025; 87070; 87205; 97110-GP; 97162-GP; A9270-GY; J1815-GY

== ENCOUNTER 2017-10-22 14:17 | Inpatient (IN) | payer MEDICARE, OTHER, MEDICAID ==
[2017-10-22] MEDS ORDERED: Prochlorperazine 5 MG Tab PO PRN (18:51)
[2017-10-22] MEDS ORDERED: OLANZapine 5 MG Tab PO SCH (19:00)
--- NOTE | 2017-10-22 19:43 | PCM.HP ---
H&P History of Present Illness - General Date of Service: 10/22/17 Admit Problem/Dx: Admission Diagnosis/Problem Admission Diagnosis/Problem Fracture of left humerus Source of Information: Patient, Old Records, RN History Limitations: Reports: No Limitations - Related Data Allergies/Adverse Reactions: Allergies Allergy/AdvReac Type Severity Reaction Status Date / Time latex Allergy Rash Verified 10/22/17 14:19 Home Medications: Home Meds Allopurinol [Zyloprim] 100 mg PO DAILY 09/29/17 [History] Cranberry Fruit Concentrate [Cranberry] 900 mg PO BEDTIME 09/29/17 [History] Furosemide 20 mg PO DAILY 09/29/17 [History] Hydrocodone/Acetaminophen [Hydrocodon-Acetaminophen 5-325] 1 - 2 tab PO Q4H PRN 09/29/17 [History] Losartan [Cozaar] 25 mg PO DAILY 09/29/17 [History] Multivitamin [Multivitamins] 1 cap PO DAILY 09/29/17 [History] Omeprazole 20 mg PO SUTUTHSA@2100 09/29/17 [History] Polyethylene Glycol 3350 [MiraLAX] 17 gm PO DAILY PRN 09/29/17 [History] Prochlorperazine [Compazine] 10 mg PO QID PRN 09/29/17 [History] Sertraline HCl 100 mg PO BEDTIME 09/29/17 [History] Simvastatin [Zocor] 40 mg PO BEDTIME 09/29/17 [History] Aspirin [Halfprin] 81 mg PO BEDTIME 10/14/17 [History] Furosemide 20 mg PO SUTUTHSA@1700 10/14/17 [History] Insulin Degludec [Tresiba Flextouch U-100] 44 units SUBCUT DAILY 10/14/17 [ History] Ondansetron HCl [Ondansetron] 8 mg PO TID PRN 10/14/17 [History] Acetaminophen [Extra Strength Non-Aspirin] 1,000 mg PO Q8H 10/22/17 [History] Iron Polysaccharide Complex [Ferric X-150] 150 mg PO DAILY 10/22/17 [History] LORazepam 0.25 mg PO Q8H PRN 10/22/17 [History] Magnesium Hydroxide [Milk of Magnesia] 30 ml PO DAILY PRN 10/22/17 [History] Metoprolol Tartrate 50 mg PO BID 10/22/17 [History] Naloxegol Oxalate [Movantik] 25 mg PO DAILY 10/22/17 [History] Nystatin [Nystop] 1 applic TOP BID 10/22/17 [History] OLANZapine [ZyPREXA] 10 mg PO ASDIRECTED 10/22/17 [History] Sennosides/Docusate Sodium [Senna Plus Tablet] 1 tab PO BID PRN 10/22/17 [ History] oxyCODONE 5 mg PO Q6H 10/22/17 [History] Past Medical History HEENT History: Reports: Impaired Vision Other HEENT History: diabetic retinopathy Cardiovascular History: Reports: CAD, High Cholesterol, Hypertension Other Cardiovascular History: atrial flutter. aortic stenosis Gastrointestinal History: Reports: GERD, Other (See Below) Other Gastrointestinal History: malignant ascites with pleurix drain placed to right upper abdomen on 10/20/17 Genitourinary History: Reports: Chronic Renal Insuffiency Other Genitourinary History: OVER ACTIVE BLADDER. CKD STAGE III [employer] History: Reports: Musculoskeletal History: Reports: Osteoarthritis Psychiatric History: Reports: Depression Endocrine/Metabolic History: Reports: Diabetes, Type II Immunologic History: Reports: Immunosuppression Other Oncologic History: ENDOMETRIAL. PERITONEAL - Infectious Disease History Infectious Disease History: Reports: Measles, Mumps - Past Surgical History Head Surgeries/Procedures: Reports: None HEENT Surgical History: Reports: None Cardiovascular Surgical History: Reports: Valve Replacement Other Cardiovascular Surgeries/Procedures: CABG. AORTIC VALVE REPLACEMENT GI Surgical History: Reports: Colostomy Female Surgical History: Reports: D&C, Hysterectomy, Salpingo-Oophorectomy Other Female Surgeries/Procedures: NODE DISSECTION Endocrine Surgical History: Reports: None Musculoskeletal Surgical History: Reports: None Social & Family History - Family History Oncologic: Reports: Brain ([id number]-[id number] cancer), Colon (father-mid 70s- ), Other (See Below) (sister-unknown primary cancer in 50s-) - Tobacco Use Smoking Status *Q: Never Smoker - Caffeine Use Caffeine Use: Reports: Coffee, Soda Other Caffeine Use: diet - Recreational Drug Use Recreational Drug Use: No - Living Situation & Occupation Living situation: Reports: Single Occupation: Retired H&P Review of Systems - Review of Systems: Review Of Systems: See Below General: Denies: Fever, Chills, Weakness, Fatigue, Decreased Appetite HEENT: Reports: Glasses, Other (canker sore to right inner cheek). Denies: Ear Pain, Headaches, Rhinitis, Sinus Congestion, Sore Throat Pulmonary: Denies: Shortness of Breath, Cough, Sputum Cardiovascular: Reports: Dyspnea on Exertion, Edema. Denies: Chest Pain Gastrointestinal: Reports: Abdominal Pain (intermittent), Constipation. Denies : Diarrhea, Decreased Appetite, Nausea, Vomiting Genitourinary: Reports: Incontinence (chronic). Denies: Dysuria, Frequency Musculoskeletal: Reports: Other (Denies left shoulder/arm pain) Neurological: Denies: Dizziness, Headache Immunologic: Reports: No Symptoms Exam - Exam Exam: See Below - Vital Signs Vital Signs: Last Vital Signs Temp 97.4 F 10/22/17 19:00 Pulse 16 L 10/22/17 19:00 Resp 16 10/22/17 19:00 BP 166/65 H 10/22/17 19:00 Pulse Ox 98 10/22/17 19:00 Weight: 239 lb 12.8 oz - Exam Quality Assessment: DVT Prophylaxis (Phan stockings). No: Supplemental Oxygen, Urinary Catheter General: Alert, Oriented, Cooperative HEENT: Conjunctiva Clear, Hearing Intact, Mucosa Moist & [place], Posterior Pharynx Clear, TMs Clear, Glasses, Other (pin point canker sore noted to right inner cheek) Neck: Supple, Trachea Midline. No: Lymphadenopathy Lungs: Clear to Auscultation, Normal Respiratory Effort Cardiovascular: Regular Rate, Regular Rhythm, Normal S1, Normal S2, Systolic Murmur GI/Abdominal Exam: Normal Bowel Sounds, Soft, Non-Tender, Distended (mild) Extremities: Pedal Edema (1-2+ pitting edema to BLE and feet) Skin: Warm, Dry, Intact, Other (RL has dressing in place for pleurx tubing). No: Wound Neuro Extensive - Mental Status: Alert, Oriented x3, Normal Mood/Affect, Normal Cognition, Memory Intact Psychiatric: Alert, Normal Affect, Normal Mood Problem List Initiated/Reviewed/Updated: Yes Orders Last 24hrs: Active Orders 24 hr Category Date Time Status Patient Status [ADT] Routine ADT 10/22/17 19:30 Ordered Blood Glucose Check, Bedside [RC] BIDAC Care 10/22/17 19:30 Ordered Communication Order [RC] DAILY Care 10/22/17 18:50 Active Communication Order [RC] DAILY Care 10/22/17 19:34 Ordered Height and Weight [RC] PER UNIT ROUTINE Care 10/22/17 19:32 Ordered Intake and Output [RC] QSHIFT Care 10/22/17 19:32 Ordered May Shower [RC] ASDIRECTED Care 10/22/17 19:30 Ordered Oxygen Therapy [RC] PRN Care 10/22/17 19:30 Ordered Up With Assistance [RC] ASDIRECTED Care 10/22/17 19:30 Ordered VTE/DVT Education [RC] PER UNIT ROUTINE Care 10/22/17 19:30 Ordered Vital Signs [RC] PER UNIT ROUTINE Care 10/22/17 19:30 Ordered PT Evaluation and Treatment [CONS] Routine Cons 10/22/17 19:30 Ordered [place] [employer] Diet [DIET] Diet 10/22/17 Dinner Ordered Acetaminophen [Tylenol Extra Strength] Med 10/22/17 19:00 Active 1,000 mg PO Q8H Acetaminophen/HYDROcodone [B[place] 325-5 MG] Med 10/22/17 18:51 Active 1 - 2 tab PO Q4H PRN Allopurinol [Zyloprim] Med 10/23/17 09:00 Active 100 mg PO DAILY Aspirin [Halfprin] Med 10/22/17 21:00 Active 81 mg PO BEDTIME Cranberry Ext/C/L. Sporogenes [Azo Cranberry] Med 10/22/17 21:00 Active 1 each PO BEDTIME Docusate Sodium/Sennosides [Senna Plus] Med 10/22/17 18:51 Active 1 tab PO BID PRN FA/Lycopene/Lut/MV,Ca,Iron,Min [Centrum] Med 10/23/17 09:00 Active 1 tab PO DAILY Furosemide [Lasix] Med 10/23/17 09:00 Active 20 mg PO DAILY Furosemide [Lasix] Med 10/23/17 17:00 Active 20 mg PO SUTUTHSA@1700 Insulin Degludec Med 10/23/17 09:00 Pending 44 units SUBCUT DAILY Insulin Detemir [Levemir] Med 10/23/17 09:00 Ordered 44 unit SUBCUT DAILY Iron Polysaccharides Complex [Ferrex 150] Med 10/23/17 09:00 Active 150 mg PO DAILY LORazepam [Ativan] Med 10/22/17 18:51 Active 0.25 mg PO Q8H PRN Losartan [Cozaar] Med 10/23/17 09:00 Active 25 mg PO DAILY Magnesium Hydroxide [Milk of Magnesia] Med 10/22/17 18:51 Active 30 ml PO DAILY PRN Metoprolol Tartrate [Lopressor] Med 10/22/17 21:00 Active 50 mg PO BID Naloxegol Oxalate [Movantik] Med 10/23/17 09:00 Active 25 mg PO DAILY Nystatin [Nystop] Med 10/22/17 21:00 Active 0 gm TOP BID OLANZapine [ZyPREXA] Med 10/22/17 19:00 Pending 10 mg PO ASDIRECTED Omeprazole Med 10/23/17 21:00 Active 20 mg PO SUTUTHSA@2100 Ondansetron [Zofran ODT] Med 10/22/17 18:51 Active 8 mg PO TID PRN Polyethylene Glycol 3350 [MiraLAX] Med 10/22/17 18:51 Active 17 gm PO DAILY PRN Prochlorperazine [Compazine] Med 10/22/17 18:51 Active 10 mg PO QID PRN Sertraline [Zoloft] Med 10/22/17 21:00 Active 100 mg PO BEDTIME Simvastatin [Zocor] Med 10/22/17 21:00 Active 40 mg PO BEDTIME oxyCODONE Med 10/22/17 19:00 Active 5 mg PO Q6H Antiembolic Hose [OM.PC] Routine Oth 10/22/17 19:30 Ordered Resuscitation Status Routine Resus Stat 10/22/17 19:30 Ordered Medication Orders Acetaminophen (Tylenol Extra Strength) 1,000 mg PO Q8H [facility] Hydrocodone Bitart/Acetaminophen ([place] 325-5 Mg) 1 - 2 tab PO Q4H PRN PRN Reason: Moderate Pain Allopurinol (Zyloprim) 100 mg PO DAILY [facility] Aspirin (Halfprin) 81 mg PO BEDTIME [facility] Cranberry (Azo Cranberry) 1 each PO BEDTIME [facility] Furosemide (Lasix) 20 mg PO DAILY [facility] Furosemide (Lasix) 20 mg PO SUTUTHSA@1700 [facility] Insulin Detemir (Levemir) 44 unit SUBCUT DAILY [facility] Lorazepam (Ativan) 0.25 mg PO Q8H PRN PRN Reason: Anxiety Losartan Potassium (Cozaar) 25 mg PO DAILY [facility] Magnesium Hydroxide (Milk Of Magnesia) 30 ml PO DAILY PRN PRN Reason: Constipation Metoprolol Tartrate (Lopressor) 50 mg PO BID [facility] Multivitamins/Minerals (Centrum) 1 tab PO DAILY [facility] Naloxegol (Movantik) 25 mg PO DAILY [facility] Insulin Degludec ( (Tresiba) 44units) 44 units SUBCUT DAILY [facility] Nystatin (Nystop) 0 gm TOP BID [facility] Olanzapine (Zyprexa) 10 mg PO ASDIRECTED [facility] Omeprazole (Omeprazole) 20 mg PO SUTUTHSA@2100 [facility] Ondansetron HCl (Zofran Odt) 8 mg PO TID PRN PRN Reason: nausea or vomitting Oxycodone HCl (Oxycodone) 5 mg PO Q6H [facility] Polyethylene Glycol (Miralax) 17 gm PO DAILY PRN PRN Reason: Constipation Polysaccharide Iron Complex (Ferrex 150) 150 mg PO DAILY [facility] Prochlorperazine Maleate (Compazine) 10 mg PO QID PRN PRN Reason: Nausea Senna/Docusate Sodium (Senna Plus) 1 tab PO BID PRN PRN Reason: Constipation Sertraline HCl (Zoloft) 100 mg PO BEDTIME [facility] Simvastatin (Zocor) 40 mg PO BEDTIME [facility] Assessment/Plan Comment:: HPI: This is a 76 year old female who had previously been in swing bed status due to a left humeral fracture and deconditioning. The patient has been recently diagnosed with peritoneal carcinomatosis and ovarian cancer. The patient was sent up to [facility] on 10/20/17 for abdominal paracentesis and pleurx catheter placement. She had labs done that day which showed a hemoglobin of 6.5. She was then admitted to their hospitalist services. She was given 2 units of PRBCs. She was due for her second cycle of carboplatin and taxol while there and this was completed on 10/21/17. She was also given Neulasta prior to discharge. She has been tolerating her treatment well and has been changed from a weekly protocol to every 3 week protocol. The patient was admitted back to swing bed status for rehabilitation of her fracture and deconditioning. PRIMARY ASSESSMENT/PLAN: Deconditioning. Referral to PT placed. Left humeral head fracture. Continue with sling and swath. She was seen by Dr. Singer, orthopedist, on 10/18/17 and it was advised for conservative management to include sling and swath for 6 weeks followed by aggressive therapy for range of motion and strengthening. Immunocompromised host. Recent chemotherapy. WBC 3.5. with ANC of 112. She had been given Neulasta prior to discharge. Repeat CBC on 10/25/17. Malignant ascites. Drain pleurx catheter as needed for shortness of breath. Anemia due to antineoplastic chemotherapy. Hgb on discharge 9.4. Constipation. Restart movantik. Continue with Senna-S. SECONDARY ASSESSMENT/PLAN: Primary peritoneal carcinomatosis with possible ovarian cancer. Continue with 3 week protocol of carboplatin and taxol per oncology. She is to receive zyprexa days 1-4 of chemotherapy. Continue scheduled oxycodone. Hydrocodone PRN. History of endometrial cancer, s/p hysterceomty 2009. CAD. HTN, stable. Continue lopressor and losartan. Aortic stenosis. History of atrial flutter. Type 2 DM. Accuchecks daily. Tresiba switched to levemir daily due to not being available in house. CKD stage 3, stable. Discharge GFR 37. CMP on 10/25/17. Hyperlipidemia. Continue simvastatin. Obesity. Diabetic retinopathy. Depression. Continue zoloft. GERD. Continue omeprazole. OAB. Osteoarthritis. History of hypercalcemia. Hypoalbuminemia. DVT prophylaxis. Score of 6, however given recent anemia requiring transfusion and with patient mobile will hold off on lovenox for now. Continue with phan stockings. Overall plan: The patient will remain in swing bed status for rehabilitation. Code status reviewed with patient and she wishes to be a DNR/DNI. She is agreeable to IV fluids and antibiotics. She will continue with cancer treatments per oncology.
[2017-10-22] MEDS: oxyCODONE 5 MG Tab PO SCH (19:56)
[2017-10-22] MEDS: Acetaminophen 500 MG Tab PO SCH (19:57)
[2017-10-22] MEDS: Aspirin 81 MG Tab.EC PO SCH (21:29)
[2017-10-22] MEDS: Sertraline 50 MG Tab PO SCH (21:29)
[2017-10-22] MEDS: Cranberry Ext/C/L. Sporogenes Tab PO SCH (21:29)
[2017-10-22] MEDS: Simvastatin 20 MG Tab PO SCH (21:29)
[2017-10-22] MEDS: Metoprolol Tartrate 50 MG Tab PO SCH (21:31)
[2017-10-22] MEDS: Nystatin Topical Powder 15 GM Bottle TOP SCH (21:38)
[2017-10-23] MEDS: oxyCODONE 5 MG Tab PO SCH ×4 (01:56→18:23)
[2017-10-23] MEDS: Acetaminophen 500 MG Tab PO SCH ×2 (02:00→16:09)
[2017-10-23] MEDS: Metoprolol Tartrate 50 MG Tab PO SCH ×2 (08:27→21:23)
[2017-10-23] MEDS: Allopurinol 100 MG Tab PO SCH (08:27)
[2017-10-23] MEDS: Losartan 25 MG Tab PO SCH (08:27)
[2017-10-23] MEDS: Iron Polysaccharides Complex 150 MG Cap PO SCH (08:27)
[2017-10-23] MEDS: Multivitamins with Minerals/Iron/Folic Acid/Lycopene Tab PO SCH (08:27)
[2017-10-23] MEDS: Furosemide 20 MG Tab PO SCH ×2 (08:27→16:09)
[2017-10-23] MEDS: Naloxegol Oxalate 25 MG Tab PO SCH (08:27)
[2017-10-23] MEDS: Insulin Detemir 100 Units/ML 3 ML Pen SUBCUT SCH (08:28)
[2017-10-23] MEDS ORDERED: INSULIN DEGLUDEC 44 UNIT SUBCUT SCH (09:00)
[2017-10-23] MEDS: Nystatin Topical Powder 15 GM Bottle TOP SCH ×2 (09:49→22:05)
[2017-10-23] MEDS: Polyethylene Glycol 3350 Powder 17 GM Packet PO PRN (11:30)
[2017-10-23] MEDS ORDERED: Omeprazole 20 MG Cap.CR PO SCH (21:00)
[2017-10-23] MEDS: Aspirin 81 MG Tab.EC PO SCH (21:23)
[2017-10-23] MEDS: Simvastatin 20 MG Tab PO SCH (21:24)
[2017-10-23] MEDS: Sertraline 50 MG Tab PO SCH (21:24)
[2017-10-23] MEDS: Acetaminophen/HYDROcodone 325-5 MG Tab PO PRN (21:28)
[2017-10-23] MEDS: Cranberry Ext/C/L. Sporogenes Tab PO SCH (23:06)
[2017-10-24] MEDS: Acetaminophen 500 MG Tab PO SCH ×3 (00:54→16:21)
[2017-10-24] MEDS: oxyCODONE 5 MG Tab PO SCH ×2 (00:55→06:21)
[2017-10-24] MEDS: Iron Polysaccharides Complex 150 MG Cap PO SCH (08:09)
[2017-10-24] MEDS: Naloxegol Oxalate 25 MG Tab PO SCH (08:09)
[2017-10-24] MEDS: Furosemide 20 MG Tab PO SCH ×2 (08:10→16:21)
[2017-10-24] MEDS: Nystatin Topical Powder 15 GM Bottle TOP SCH ×2 (08:10→20:10)
[2017-10-24] MEDS: Multivitamins with Minerals/Iron/Folic Acid/Lycopene Tab PO SCH (08:10)
[2017-10-24] MEDS: Allopurinol 100 MG Tab PO SCH (08:14)
[2017-10-24] MEDS: Losartan 25 MG Tab PO SCH (08:14)
[2017-10-24] MEDS: Metoprolol Tartrate 50 MG Tab PO SCH ×2 (08:15→20:05)
[2017-10-24] MEDS: Insulin Detemir 100 Units/ML 3 ML Pen SUBCUT SCH (08:15)
[2017-10-24] MEDS ORDERED: Calcium Carbonate 500 MG Tab.Chew PO PRN (08:46)
[2017-10-24] MEDS: Polyethylene Glycol 3350 Powder 17 GM Packet PO PRN (12:52)
[2017-10-24] MEDS: Acetaminophen/HYDROcodone 325-5 MG Tab PO PRN (19:26)
[2017-10-24] MEDS: Sertraline 50 MG Tab PO SCH (20:04)
[2017-10-24] MEDS: Aspirin 81 MG Tab.EC PO SCH (20:04)
[2017-10-24] MEDS: Simvastatin 20 MG Tab PO SCH (20:04)
[2017-10-24] MEDS: Omeprazole 20 MG Cap.CR PO SCH (20:05)
[2017-10-25] MEDS: Cranberry Ext/C/L. Sporogenes Tab PO SCH ×2 (00:43→22:21)
[2017-10-25] MEDS: oxyCODONE 5 MG Tab PO PRN (00:48)
[2017-10-25] MEDS: Acetaminophen 500 MG Tab PO SCH ×3 (00:48→15:48)
[2017-10-25] MEDS: Ondansetron 4 MG Tab.DIS PO PRN (02:37)
[2017-10-25] MEDS: Losartan 25 MG Tab PO SCH (08:55)
[2017-10-25] MEDS: Multivitamins with Minerals/Iron/Folic Acid/Lycopene Tab PO SCH (08:55)
[2017-10-25] MEDS: Metoprolol Tartrate 50 MG Tab PO SCH ×2 (08:56→21:08)
[2017-10-25] MEDS: Iron Polysaccharides Complex 150 MG Cap PO SCH (08:56)
[2017-10-25] MEDS: Furosemide 20 MG Tab PO SCH (08:56)
[2017-10-25] MEDS: Nystatin Topical Powder 15 GM Bottle TOP SCH ×3 (08:58→22:21)
[2017-10-25] MEDS: Naloxegol Oxalate 25 MG Tab PO SCH (08:58)
[2017-10-25] MEDS: Insulin Detemir 100 Units/ML 3 ML Pen SUBCUT SCH (08:59)
[2017-10-25] MEDS: Allopurinol 100 MG Tab PO SCH (09:08)
--- NOTE | 2017-10-25 10:12 | PCM.PN ---
- General Info Date of Service: 10/25/17 Subjective Update: Patient states she did not sleep well last night. She was unable to get comfortable with her shoulder and coccyx. Functional Status: Reports: Tolerating Diet, Urinating, New Symptoms (mouth burning, coccyx pain, sore abdominal folds) - Review of Systems General: Denies: Fever HEENT: Reports: Other (mouth burning, no sores). Denies: Headaches, Sore Throat Pulmonary: Denies: Shortness of Breath, Cough Cardiovascular: Reports: Dyspnea on Exertion, Edema. Denies: Chest Pain Genitourinary: Reports: Incontinence Musculoskeletal: Reports: Joint Pain (denies left shoulder/arm pain), Other ( Coccyx pain) Skin: Reports: Other (sore to coccyx-present for some time and worsened over the past 2-3 weeks; abdominal folds erythematous and itching) - Patient Data Vitals - Most Recent: Last Vital Signs Temp 97.8 F 10/25/17 07:25 Pulse 72 10/25/17 08:56 Resp 18 10/25/17 07:25 BP 143/62 H 10/25/17 08:56 Pulse Ox 94 L 10/25/17 07:25 Weight - Most Recent: 239 lb 12.8 oz I&O - Last 24 Hours: Intake & Output 10/24/17 10/25/17 10/25/17 22:59 06:59 14:59 Intake Total 550 100 Balance 550 100 Lab Results Last 24 Hours: Laboratory Results - last 24 hr 10/25/17 10/25/17 Range/Units 07:25 07:25 WBC 6.2 (5.0-10.0) 10^3/uL RBC 3.05 L (3.80-5.50) 10^6/uL Hgb 9.3 L D (12.0-16.0) g/dL Hct 28.1 L (37.0-47.0) % MCV 92.1 H D (82.0-92.0) fL MCH 30.3 (27.0-31.0) pg MCHC 32.9 (32.0-36.0) g/dL RDW 15.2 H (11.5-14.5) % Plt Count 80 L (150-300) 10^3/uL MPV 10.4 (7.4-10.4) fL Neut % (Auto) 84.0 H (50.0-70.0) % Lymph % (Auto) 12.8 L (20.0-40.0) % [place] % (Auto) 0.7 L (2.0-8.0) % Eos % (Auto) 2.4 (1.0-3.0) % Baso % (Auto) 0.1 (0.0-1.0) % Neut # (Auto) 5.3 (2.5-7.0) 10^3/uL Lymph # (Auto) 0.8 L (1.0-4.0) 10^3/uL [place] # (Auto) 0.0 L (0.1-0.8) 10^3/uL Eos # (Auto) 0.1 (0.1-0.3) 10^3/uL Baso # (Auto) 0.0 (0.0-0.1) 10^3/uL Sodium 137 (136-145) mmol/L Potassium 4.6 (3.3-5.3) mmol/L Chloride 107 (98-115) mmol/L Carbon Dioxide 25.2 (21.0-32.0) mmol/L BUN 33 H (6-25) mg/dL Creatinine 1.09 (0.51-1.17) mg/dL Est Cr Clr Drug Dosing 36.32 mL/min Estimated GFR (MDRD) 49 mL/min Glucose 145 H (70-110) mg/dL Calcium 8.6 L (8.7-10.3) mg/dL Total Bilirubin 0.7 (0.2-1.0) mg/dL AST 32 (15-37) U/L ALT 23 (12-78) U/L Alkaline Phosphatase 65 (46-116) IU/L Total Protein 5.4 L (6.4-8.2) g/dL Albumin 2.02 L (3.00-4.80) g/dL Med Orders - Current: Current Medications Acetaminophen (Tylenol Extra Strength) 1,000 mg PO Q8H [facility] Last Admin: 10/25/17 08:01 Dose: 1,000 mg Hydrocodone Bitart/Acetaminophen ([place] 325-5 Mg) 1 - 2 tab PO Q4H PRN PRN Reason: Moderate Pain Last Admin: 10/24/17 19:26 Dose: 1 tab Allopurinol (Zyloprim) 100 mg PO DAILY [facility] Last Admin: 10/25/17 09:08 Dose: 100 mg Aspirin (Halfprin) 81 mg PO BEDTIME [facility] Last Admin: 10/24/17 20:04 Dose: 81 mg Calcium Carbonate/Glycine (Tums) 500 mg PO TID PRN PRN Reason: Indigestion Al Hydroxide/Mg Hydroxide 40 ml/ Diphenhydramine HCl 12.5 mg/ Lidocaine HCl 40 ml 0 ml PO TID PRN PRN Reason: mouth sores/burning Cranberry (Azo Cranberry) 1 each PO BEDTIME [facility] Last Admin: 10/25/17 00:43 Dose: Not Given Furosemide (Lasix) 20 mg PO DAILY [facility] Last Admin: 10/25/17 08:56 Dose: 20 mg Furosemide (Lasix) 20 mg PO SUTUTHSA@1700 [facility] Last Admin: 10/24/17 16:21 Dose: 20 mg Insulin Detemir (Levemir) 44 unit SUBCUT DAILY [facility] Last Admin: 10/25/17 08:59 Dose: 44 unit Lorazepam (Ativan) 0.25 mg PO Q8H PRN PRN Reason: Anxiety Losartan Potassium (Cozaar) 25 mg PO DAILY [facility] Last Admin: 10/25/17 08:55 Dose: 25 mg Magnesium Hydroxide (Milk Of Magnesia) 30 ml PO DAILY PRN PRN Reason: Constipation Metoprolol Tartrate (Lopressor) 50 mg PO BID [facility] Last Admin: 10/25/17 08:56 Dose: 50 mg Multivitamins/Minerals (Centrum) 1 tab PO DAILY [facility] Last Admin: 10/25/17 08:55 Dose: 1 tab Naloxegol (Movantik) 25 mg PO DAILY [facility] Last Admin: 10/25/17 08:58 Dose: 25 mg Nystatin (Nystop) 0 gm TOP TID [facility] Omeprazole (Omeprazole) 20 mg PO DAILY@2100 [facility] Last Admin: 10/24/17 20:05 Dose: 20 mg Ondansetron HCl (Zofran Odt) 8 mg PO TID PRN PRN Reason: nausea or vomitting Last Admin: 10/25/17 02:37 Dose: 8 mg Oxycodone HCl (Oxycodone) 5 mg PO Q6H PRN PRN Reason: Pain Last Admin: 10/25/17 00:48 Dose: 5 mg Oxycodone HCl (Oxycodone) 5 mg PO BEDTIME [facility] Polyethylene Glycol (Miralax) 17 gm PO DAILY PRN PRN Reason: Constipation Last Admin: 10/24/17 12:52 Dose: 17 gm Polysaccharide Iron Complex (Ferrex 150) 150 mg PO DAILY [facility] Last Admin: 10/25/17 08:56 Dose: 150 mg Prochlorperazine Maleate (Compazine) 10 mg PO QID PRN PRN Reason: Nausea Senna/Docusate Sodium (Senna Plus) 1 tab PO BID PRN PRN Reason: Constipation Sertraline HCl (Zoloft) 100 mg PO BEDTIME [facility] Last Admin: 10/24/17 20:04 Dose: 100 mg Simvastatin (Zocor) 40 mg PO BEDTIME [facility] Last Admin: 10/24/17 20:04 Dose: 40 mg Discontinued Medications Acetaminophen (Tylenol Extra Strength) 1,000 mg PO Q8H [facility] Last Admin: 10/23/17 02:00 Dose: 1,000 mg Insulin Degludec ( (Tresiba) 44units) 44 units SUBCUT DAILY [facility] Nystatin (Nystop) 0 gm TOP BID [facility] Last Admin: 10/25/17 08:58 Dose: 1 applic Olanzapine (Zyprexa) 10 mg PO ASDIRECTED [facility] Omeprazole (Omeprazole) 20 mg PO SUTUTHSA@2100 [facility] Last Admin: 10/23/17 21:24 Dose: 20 mg Oxycodone HCl (Oxycodone) 5 mg PO Q6H [facility] Last Admin: 10/23/17 06:11 Dose: 5 mg Oxycodone HCl (Oxycodone) 5 mg PO Q6H [facility] Last Admin: 10/24/17 06:21 Dose: Not Given - Exam Quality Assessment: DVT Prophylaxis (Phan stockings). No: Supplemental Oxygen, Urine Catheter General: Alert, Oriented, Cooperative, No Acute Distress Lungs: Clear to Auscultation, Normal Respiratory Effort Cardiovascular: Regular Rate, Regular Rhythm, No Murmurs GI/Abdominal Exam: Normal Bowel Sounds, Soft, Non-Tender Extremities: Other (2+ pitting edema to BLE) Skin: Warm, Dry, Other (erythematous abdominal folds without exudate or open wound. ) Wound/Incisions: Decubitis (Coccyx pressure ulcer stage 3 (POA): approximate quarter sized with erythematous wound bed and moderate yellow slough; surrounding edges of skin cracked and fissured. ) Neurological: Normal Speech Psy/Mental Status: Alert, Normal Affect, Normal Mood - Problem List Review Problem List Initiated/Reviewed/Updated: Yes - My Orders Last 24 Hours: My Active Orders 10/24/17 21:00 Omeprazole 20 mg PO DAILY@2100 10/25/17 09:00 Dressing Change [Wound Care] [RC] Q3D 10/25/17 09:02 Dressing Change [Wound Care] [RC] INTERMITTENT 10/25/17 09:03 Alum Hydrox/Mag Hydrox/Simeth [Mag-Al Plus] 40 ml diphenhydrAMINE [Benadryl] 12.5 mg Lidocaine 2% [Xylocaine 2% Viscous] 40 ml PO TID 10/25/17 14:00 Nystatin [Nystop] See Dose Instructions TOP TID 10/25/17 21:00 oxyCODONE 5 mg PO BEDTIME - Plan Plan:: HPI: This is a 76 year old female who had previously been in swing bed status due to a left humeral fracture and deconditioning. The patient has been recently diagnosed with peritoneal carcinomatosis. The patient was sent up to on 10/20/17 for abdominal paracentesis and pleurx catheter placement. She had labs done that day which showed a hemoglobin of 6.5. She was then admitted to their hospitalist services. She was given 2 units of PRBCs. She was due for her second cycle of carboplatin and taxol while there and this was completed on 10/21/17. She was also given Neulasta prior to discharge. She has been tolerating her treatment well and has been changed from a weekly protocol to every 3 week protocol. The patient was admitted back to swing bed status for rehabilitation of her fracture and deconditioning. PRIMARY ASSESSMENT/PLAN: Deconditioning. Referral to PT placed. Left humeral head fracture. Continue with sling and swath. She was seen by Dr. Singer, orthopedist, on 10/18/17 and it was advised for conservative management to include sling and swath for 6 weeks followed by aggressive therapy for range of motion and strengthening. Stage 3 pressure ulcer to coccyx, POA, worsening. Wound cultures obtained. Wound consultation placed. Keep patient off of buttocks as much as possible. Will await culture results prior to initiating treatment as this is chronic and she is afebrile. Immunocompromised host. Recent chemotherapy. WBC 6.2. ANC 520.8. Patient complaining of mouth burning. Magic mouthwash ordered PRN. Yeast to abdominal folds. Nystatin powder TID. Malignant ascites. Drain pleurx catheter as needed for shortness of breath. Change dressing today and then PRN. Anemia due to antineoplastic chemotherapy. Hgb on discharge 9.4. Hemoblogin stable at 9.3 today. Constipation. Continue movantik and senna. SECONDARY ASSESSMENT/PLAN: Primary peritoneal carcinomatosis. Continue with 3 week protocol of carboplatin and taxol per oncology. She is to receive zyprexa days 1-4 of chemotherapy. Oxycodone changed to PRN due to confusion, however will schedule 5 mg at bedtime due to pain and PRN during the day. Discontinue hydrocodone. History of endometrial cancer, s/p hysterceomty 2009. CAD. HTN, stable. Continue lopressor and losartan. Aortic stenosis. History of atrial flutter. Type 2 DM. Accuchecks daily. Tresiba switched to levemir daily due to not being available in house. CKD stage 3, stable. GFR 49, creatinine 1.09. Hyperlipidemia. Continue simvastatin. Obesity. Diabetic retinopathy. Depression. Continue zoloft. GERD. Continue omeprazole. OAB. Osteoarthritis. History of hypercalcemia. Calcium 8.6 corrects to 9.4. Hypoalbuminemia. Albumin 2.02, total protein 5.4. DVT prophylaxis. Score of 6, however given recent anemia requiring transfusion and with patient mobile will hold off on lovenox for now. Continue with phan stockings. Overall plan: The patient will continue with physical therapy for rehabilitation. Will continue to monitor and treat skin concerns.
[2017-10-25] MEDS: Simvastatin 20 MG Tab PO SCH (21:07)
[2017-10-25] MEDS: Aspirin 81 MG Tab.EC PO SCH (21:07)
[2017-10-25] MEDS: Omeprazole 20 MG Cap.CR PO SCH (21:07)
[2017-10-25] MEDS: Sertraline 50 MG Tab PO SCH (21:08)
[2017-10-25] MEDS: oxyCODONE 5 MG Tab PO SCH (22:22)
[2017-10-25] MEDS: LORazepam 0.5 MG Tab PO PRN (22:23)
[2017-10-26] MEDS: Acetaminophen 500 MG Tab PO SCH ×3 (01:32→15:47)
[2017-10-26] MEDS: Ondansetron 4 MG Tab.DIS PO PRN (01:34)
[2017-10-26] MEDS: Multivitamins with Minerals/Iron/Folic Acid/Lycopene Tab PO SCH (09:05)
[2017-10-26] MEDS: Losartan 25 MG Tab PO SCH (09:06)
[2017-10-26] MEDS: Iron Polysaccharides Complex 150 MG Cap PO SCH (09:07)
[2017-10-26] MEDS: Metoprolol Tartrate 50 MG Tab PO SCH ×2 (09:07→20:58)
[2017-10-26] MEDS: Furosemide 20 MG Tab PO SCH ×2 (09:07→17:51)
[2017-10-26] MEDS: Naloxegol Oxalate 25 MG Tab PO SCH (09:08)
[2017-10-26] MEDS: Allopurinol 100 MG Tab PO SCH (09:08)
[2017-10-26] MEDS: Magnesium Hydroxide 400 MG/5 ML Susp 30 ML Cup PO PRN (09:10)
[2017-10-26] MEDS: Insulin Detemir 100 Units/ML 3 ML Pen SUBCUT SCH (09:13)
[2017-10-26] MEDS: Nystatin Ointment 15 GM Tube TOP SCH ×3 (09:54→20:55)
[2017-10-26] MEDS: Nystatin Topical Powder 15 GM Bottle TOP SCH (11:15)
[2017-10-26] MEDS: Cranberry Ext/C/L. Sporogenes Tab PO SCH (20:57)
[2017-10-26] MEDS: Aspirin 81 MG Tab.EC PO SCH (20:57)
[2017-10-26] MEDS: Omeprazole 20 MG Cap.CR PO SCH (20:59)
[2017-10-26] MEDS: Simvastatin 20 MG Tab PO SCH (20:59)
[2017-10-26] MEDS: Sertraline 50 MG Tab PO SCH (21:00)
[2017-10-26] MEDS: oxyCODONE 5 MG Tab PO SCH (21:02)
[2017-10-27] MEDS: Acetaminophen 500 MG Tab PO SCH ×4 (01:14→23:59)
[2017-10-27] MEDS: Ondansetron 4 MG Tab.DIS PO PRN ×2 (04:50→16:40)
[2017-10-27] MEDS: Alum Hydrox/Mag Hydrox/Simeth 40 ML, diphenhydrAMINE 12.5 MG, Lidocaine 2% 40 ML PO PRN ×3 (08:10)
[2017-10-27] MEDS: Nystatin Ointment 15 GM Tube TOP SCH ×3 (08:10→20:16)
[2017-10-27] MEDS: Multivitamins with Minerals/Iron/Folic Acid/Lycopene Tab PO SCH (08:14)
[2017-10-27] MEDS: Losartan 25 MG Tab PO SCH (08:14)
[2017-10-27] MEDS: Iron Polysaccharides Complex 150 MG Cap PO SCH (08:15)
[2017-10-27] MEDS: Metoprolol Tartrate 50 MG Tab PO SCH ×2 (08:16→20:31)
[2017-10-27] MEDS: Furosemide 20 MG Tab PO SCH (08:16)
[2017-10-27] MEDS: Allopurinol 100 MG Tab PO SCH (08:17)
[2017-10-27] MEDS: Naloxegol Oxalate 25 MG Tab PO SCH (08:17)
[2017-10-27] MEDS: Insulin Detemir 100 Units/ML 3 ML Pen SUBCUT SCH (08:19)
[2017-10-27] MEDS: Cranberry Ext/C/L. Sporogenes Tab PO SCH (20:30)
[2017-10-27] MEDS: Aspirin 81 MG Tab.EC PO SCH (20:31)
[2017-10-27] MEDS: Simvastatin 20 MG Tab PO SCH (20:32)
[2017-10-27] MEDS: Omeprazole 20 MG Cap.CR PO SCH (20:32)
[2017-10-27] MEDS: Sertraline 50 MG Tab PO SCH (20:33)
[2017-10-27] MEDS: oxyCODONE 5 MG Tab PO SCH (22:34)
[2017-10-28] MEDS: Acetaminophen 500 MG Tab PO SCH ×2 (07:19→17:47)
[2017-10-28] MEDS: Insulin Detemir 100 Units/ML 3 ML Pen SUBCUT SCH (08:06)
[2017-10-28] MEDS: Iron Polysaccharides Complex 150 MG Cap PO SCH (08:08)
[2017-10-28] MEDS: Multivitamins with Minerals/Iron/Folic Acid/Lycopene Tab PO SCH (08:08)
[2017-10-28] MEDS: Furosemide 20 MG Tab PO SCH ×2 (08:09→17:47)
[2017-10-28] MEDS: Naloxegol Oxalate 25 MG Tab PO SCH (08:09)
[2017-10-28] MEDS: Allopurinol 100 MG Tab PO SCH (08:10)
[2017-10-28] MEDS: Losartan 25 MG Tab PO SCH (08:10)
[2017-10-28] MEDS: Metoprolol Tartrate 50 MG Tab PO SCH ×2 (08:10→21:37)
[2017-10-28] MEDS: Alum Hydrox/Mag Hydrox/Simeth 40 ML, diphenhydrAMINE 12.5 MG, Lidocaine 2% 40 ML PO PRN ×3 (08:11)
[2017-10-28] MEDS: Nystatin Ointment 15 GM Tube TOP SCH ×3 (08:17→21:35)
[2017-10-28] MEDS: Docusate Sodium 100 MG Cap PO SCH (09:30)
--- NOTE | 2017-10-28 10:25 | PCM.PN ---
- General Info Date of Service: 10/28/17 Functional Status: Reports: New Symptoms (increased pain on decubitus ulceration debridement, mild nausea, slightly less appetite, periodic daily epistaxis, no shortness of breath). Denies: Pain Controlled - Review of Systems General: Denies: Fever, Night Sweats, Appetite Pulmonary: Reports: Other (noticeable breath only on exertion). Denies: Pleuritic Chest Pain, Cough, Sputum, Hemoptysis Cardiovascular: Reports: Edema Gastrointestinal: Reports: Decreased Appetite, Nausea. Denies: Diarrhea, Vomiting Genitourinary: Reports: No Symptoms Musculoskeletal: Reports: Arm Pain Neurological: Reports: Pre-Existing Deficit. Denies: Headache, Numbness, Syncope Psychiatric: Denies: Agitation - Patient Data Vitals - Most Recent: Last Vital Signs Temp 98.7 F 10/28/17 06:31 Pulse 79 10/28/17 08:10 Resp 16 10/28/17 06:31 BP 146/58 H 10/28/17 08:10 Pulse Ox 93 L 10/28/17 06:31 Weight - Most Recent: 239 lb 12.8 oz I&O - Last 24 Hours: Intake & Output 10/27/17 10/28/17 10/28/17 22:59 06:59 14:59 Intake Total 50 50 Balance 50 50 Lab Results Last 24 Hours: Laboratory Results - last 24 hr 10/28/17 10/28/17 Range/Units 06:39 09:25 WBC 4.7 L (5.0-10.0) 10^3/uL RBC 3.10 L (3.80-5.50) 10^6/uL Hgb 9.5 L (12.0-16.0) g/dL Hct 28.7 L (37.0-47.0) % MCV 92.6 H (82.0-92.0) fL MCH 30.8 (27.0-31.0) pg MCHC 33.3 (32.0-36.0) g/dL RDW 15.7 H (11.5-14.5) % Plt Count 70 L (150-300) 10^3/uL MPV 9.2 (7.4-10.4) fL Neut % (Auto) 58.1 (50.0-70.0) % Lymph % (Auto) 20.4 (20.0-40.0) % [place] % (Auto) 18.5 H (2.0-8.0) % Eos % (Auto) 2.3 (1.0-3.0) % Baso % (Auto) 0.7 (0.0-1.0) % Neut # (Auto) 2.7 (2.5-7.0) 10^3/uL Lymph # (Auto) 1.0 (1.0-4.0) 10^3/uL [place] # (Auto) 0.9 H (0.1-0.8) 10^3/uL Eos # (Auto) 0.1 (0.1-0.3) 10^3/uL Baso # (Auto) 0.0 (0.0-0.1) 10^3/uL POC Glucose 190 H (74-106) mg/dl Vipul Results Last 24 Hours: Microbiology 10/25/17 10:40 Miscellaneous Reference Culture - Preliminary Wound - Sacrum Gram Stain - Final Med Orders - Current: Current Medications Acetaminophen (Tylenol Extra Strength) 1,000 mg PO Q8H [facility] Last Admin: 10/28/17 07:19 Dose: 1,000 mg Allopurinol (Zyloprim) 100 mg PO DAILY [facility] Last Admin: 10/28/17 08:10 Dose: 100 mg Aspirin (Halfprin) 81 mg PO BEDTIME [facility] Last Admin: 10/27/17 20:31 Dose: 81 mg Calcium Carbonate/Glycine (Tums) 500 mg PO TID PRN PRN Reason: Indigestion Al Hydroxide/Mg Hydroxide 40 ml/ Diphenhydramine HCl 12.5 mg/ Lidocaine HCl 40 ml 0 ml PO TID PRN PRN Reason: mouth sores/burning Last Admin: 10/28/17 08:11 Dose: 10 ml Cranberry (Azo Cranberry) 1 each PO BEDTIME [facility] Last Admin: 10/27/17 20:30 Dose: 1 each Docusate Sodium (Colace) 100 mg PO DAILY [facility] Furosemide (Lasix) 20 mg PO DAILY [facility] Last Admin: 10/28/17 08:09 Dose: 20 mg Furosemide (Lasix) 20 mg PO SUTUTHSA@1700 [facility] Last Admin: 10/26/17 17:51 Dose: 20 mg Insulin Detemir (Levemir) 44 unit SUBCUT DAILY [facility] Last Admin: 10/28/17 08:06 Dose: 44 unit Lorazepam (Ativan) 0.25 mg PO Q8H PRN PRN Reason: Anxiety Last Admin: 10/25/17 22:23 Dose: 0.25 mg Losartan Potassium (Cozaar) 25 mg PO DAILY [facility] Last Admin: 10/28/17 08:10 Dose: 25 mg Magnesium Hydroxide (Milk Of Magnesia) 30 ml PO DAILY PRN PRN Reason: Constipation Last Admin: 10/26/17 09:10 Dose: 30 ml Metoprolol Tartrate (Lopressor) 50 mg PO BID [facility] Last Admin: 10/28/17 08:10 Dose: 50 mg Multivitamins/Minerals (Centrum) 1 tab PO DAILY [facility] Last Admin: 10/28/17 08:08 Dose: 1 tab Naloxegol (Movantik) 25 mg PO DAILY [facility] Last Admin: 10/28/17 08:09 Dose: 25 mg Nystatin (Nystatin Ointment) 0 gm TOP TID [facility] Last Admin: 10/28/17 08:17 Dose: 1 applic Omeprazole (Omeprazole) 20 mg PO DAILY@2100 [facility] Last Admin: 10/27/17 20:32 Dose: 20 mg Ondansetron HCl (Zofran Odt) 8 mg PO TID PRN PRN Reason: nausea or vomitting Last Admin: 10/27/17 16:40 Dose: 8 mg Oxycodone HCl (Oxycodone) 5 mg PO Q6H PRN PRN Reason: Pain Last Admin: 10/25/17 00:48 Dose: 5 mg Oxycodone HCl (Oxycodone) 5 mg PO BEDTIME [facility] Last Admin: 10/27/17 22:34 Dose: Not Given Polyethylene Glycol (Miralax) 17 gm PO DAILY PRN PRN Reason: Constipation Last Admin: 10/24/17 12:52 Dose: 17 gm Polysaccharide Iron Complex (Ferrex 150) 150 mg PO DAILY [facility] Last Admin: 10/28/17 08:08 Dose: 150 mg Prochlorperazine Maleate (Compazine) 10 mg PO QID PRN PRN Reason: Nausea Senna/Docusate Sodium (Senna Plus) 1 tab PO BID [facility] Sertraline HCl (Zoloft) 100 mg PO BEDTIME [facility] Last Admin: 10/27/17 20:33 Dose: 100 mg Simvastatin (Zocor) 40 mg PO BEDTIME [facility] Last Admin: 10/27/17 20:32 Dose: 40 mg Discontinued Medications Acetaminophen (Tylenol Extra Strength) 1,000 mg PO Q8H [facility] Last Admin: 10/23/17 02:00 Dose: 1,000 mg Hydrocodone Bitart/Acetaminophen ([place] 325-5 Mg) 1 - 2 tab PO Q4H PRN PRN Reason: Moderate Pain Last Admin: 10/24/17 19:26 Dose: 1 tab Insulin Degludec ( (Tresiba) 44units) 44 units SUBCUT DAILY [facility] Nystatin (Nystop) 0 gm TOP BID [facility] Last Admin: 10/25/17 08:58 Dose: 1 applic Nystatin (Nystop) 0 gm TOP TID [facility] Last Admin: 10/26/17 11:15 Dose: Not Given Olanzapine (Zyprexa) 10 mg PO ASDIRECTED [facility] Omeprazole (Omeprazole) 20 mg PO SUTUTHSA@2100 [facility] Last Admin: 10/23/17 21:24 Dose: 20 mg Oxycodone HCl (Oxycodone) 5 mg PO Q6H [facility] Last Admin: 10/23/17 06:11 Dose: 5 mg Oxycodone HCl (Oxycodone) 5 mg PO Q6H [facility] Last Admin: 10/24/17 06:21 Dose: Not Given Senna/Docusate Sodium (Senna Plus) 1 tab PO BID PRN PRN Reason: Constipation Last Admin: 10/28/17 08:08 Dose: 1 tab - Exam Quality Assessment: No: Supplemental Oxygen General: Alert, Oriented Neck: Supple Lungs: Clear to Auscultation, Normal Respiratory Effort Cardiovascular: Regular Rate, Regular Rhythm GI/Abdominal Exam: No Distention (Female) Exam: Deferred Back Exam: No: CVA Tenderness (L), CVA Tenderness (R) Psy/Mental Status: Alert - Problem List Review Problem List Initiated/Reviewed/Updated: Yes - My Orders Last 24 Hours: My Active Orders 10/28/17 09:00 Docusate Sodium [Colace] 100 mg PO DAILY 10/28/17 21:00 Docusate Sodium/Sennosides [Senna Plus] 1 tab PO BID - Plan Plan:: HPI: This is a 76 year old female who had previously been in swing bed status due to a left humeral fracture and deconditioning. The patient has been recently diagnosed with peritoneal carcinomatosis. The patient was sent up to [facility] on 10/20/17 for abdominal paracentesis and pleurx catheter placement. She had labs done that day which showed a hemoglobin of 6.5. She was then admitted to their hospitalist services. She was given 2 units of PRBCs. She was due for her second cycle of carboplatin and taxol while there and this was completed on 10/21/17. She was also given Neulasta prior to discharge. She has been tolerating her treatment well and has been changed from a weekly protocol to every 3 week protocol. The patient was admitted back to swing bed status for rehabilitation of her fracture and deconditioning. PRIMARY ASSESSMENT/PLAN: update today on rounds, mild daily epistaxis,mild nausea, slightly hard stools, three-step appetite, no fever, her pain mainly due to debridement of decubitus ulcer. does have shortness of breath on mild exertion, Pleurx catheter drained 150 mL Deconditioning. ongoing physical therapy, pain control prior to PT and wound debridement epistaxis, mild, controlled, saline nasal spray, check platelets today. nausea, Zyprexa, Compazine 4 times a day when necessary, Zofran before meals, monitor for tardive dyskinesia sx, Left humeral head fracture. Continue with sling and swath. She was seen by Dr. Singer, orthopedist, on 10/18/17 and it was advised for conservative management to include sling and swath for 6 weeks followed by aggressive therapy for range of motion and strengthening. Stage 3 pressure ulcer to coccyx, POA, wound debrided some slough, mild odor, culture show many gram-positive/negative axilla no PMNs however consistent with enterocutaneous leona. Off loading, Immunocompromised host. next chemotherapy treatment November 10, Recent chemotherapy. Next chemo tx November 10. WBC 6.2. ANC 520.8. monitor for stomatitis , Magic mouthwash ordered PRN. Yeast to abdominal folds. changed to nystatin cream, Malignant ascites. 150 mL out today of pleurx catheter. May need frequent drainage despite no shortness of breath. Anemia due to antineoplastic chemotherapy. Hgb on discharge 9.4. CBC today, Constipation. Continue movantik however increase senna. SECONDARY ASSESSMENT/PLAN: Primary peritoneal carcinomatosis. Continue with 3 week protocol of carboplatin and taxol per oncology. She is to receive zyprexa days 1-4 of chemotherapy. Oxycodone changed to PRN due to confusion, however will schedule 5 mg at bedtime due to pain and PRN during the day. Discontinue hydrocodone. History of endometrial cancer, s/p hysterceomty 2009. CAD. HTN, stable. Continue lopressor and losartan. Aortic stenosis. History of atrial flutter. Type 2 DM. Accuchecks daily. Tresiba switched to levemir daily due to not being available in house. CKD stage 3, stable. GFR 49, creatinine 1.09. Hyperlipidemia. Continue simvastatin. Obesity. Diabetic retinopathy. Depression. Continue zoloft. GERD. Continue omeprazole. OAB. Osteoarthritis. History of hypercalcemia. Calcium 8.6 corrects to 9.4. Hypoalbuminemia. Albumin 2.02, total protein 5.4. DVT prophylaxis. Score of 6, however given recent anemia requiring transfusion and with patient mobile will hold off on lovenox for now. Continue with phan stockings. Overall plan: proactive regarding pain medication prior to PT debridement/ activity, increase senna, CBC today, saline spray, Compazine 4 times a day PRN, start Zyprexa for post chemotherapy nausea
[2017-10-28] MEDS: Sodium Chloride 0.65% Nasal Spray 45 ML Bottle NAS PRN (10:48)
[2017-10-28] MEDS: Prochlorperazine 5 MG Tab PO PRN (10:49)
[2017-10-28] MEDS: Ondansetron 4 MG Tab.DIS PO PRN (12:55)
[2017-10-28] MEDS: Cranberry Ext/C/L. Sporogenes Tab PO SCH (21:35)
[2017-10-28] MEDS: Aspirin 81 MG Tab.EC PO SCH (21:36)
[2017-10-28] MEDS: Omeprazole 20 MG Cap.CR PO SCH (21:38)
[2017-10-28] MEDS: Simvastatin 20 MG Tab PO SCH (21:38)
[2017-10-28] MEDS: Sertraline 50 MG Tab PO SCH (21:39)
[2017-10-28] MEDS: oxyCODONE 5 MG Tab PO SCH (21:41)
[2017-10-29] MEDS: Acetaminophen 500 MG Tab PO SCH ×4 (00:20→23:53)
[2017-10-29] MEDS: Prochlorperazine 5 MG Tab PO PRN (07:52)
[2017-10-29] MEDS: Insulin Detemir 100 Units/ML 3 ML Pen SUBCUT SCH (09:24)
[2017-10-29] MEDS: Nystatin Ointment 15 GM Tube TOP SCH ×3 (09:24→20:39)
[2017-10-29] MEDS: Naloxegol Oxalate 25 MG Tab PO SCH (09:26)
[2017-10-29] MEDS: Multivitamins with Minerals/Iron/Folic Acid/Lycopene Tab PO SCH (09:26)
[2017-10-29] MEDS: Docusate Sodium 100 MG Cap PO SCH (09:26)
[2017-10-29] MEDS: Losartan 25 MG Tab PO SCH (09:27)
[2017-10-29] MEDS: Iron Polysaccharides Complex 150 MG Cap PO SCH (09:27)
[2017-10-29] MEDS: Ondansetron 4 MG Tab.DIS PO PRN (09:27)
[2017-10-29] MEDS: Allopurinol 100 MG Tab PO SCH (09:28)
[2017-10-29] MEDS: Metoprolol Tartrate 50 MG Tab PO SCH ×2 (09:28→20:38)
[2017-10-29] MEDS: Furosemide 20 MG Tab PO SCH (09:28)
[2017-10-29] MEDS ORDERED: Mupirocin Crm 15 GM Tube TOP SCH (09:57)
[2017-10-29] MEDS: Cranberry Ext/C/L. Sporogenes Tab PO SCH (20:38)
[2017-10-29] MEDS: Aspirin 81 MG Tab.EC PO SCH (20:38)
[2017-10-29] MEDS: Omeprazole 20 MG Cap.CR PO SCH (20:40)
[2017-10-29] MEDS: Simvastatin 20 MG Tab PO SCH (20:41)
[2017-10-29] MEDS: Sertraline 50 MG Tab PO SCH (20:41)
[2017-10-29] MEDS: oxyCODONE 5 MG Tab PO SCH (21:03)
[2017-10-30] MEDS: Acetaminophen 500 MG Tab PO SCH ×3 (08:19→23:57)
[2017-10-30] MEDS: Allopurinol 100 MG Tab PO SCH (09:35)
[2017-10-30] MEDS: Furosemide 20 MG Tab PO SCH ×2 (09:35→16:33)
[2017-10-30] MEDS: Docusate Sodium 100 MG Cap PO SCH (09:35)
[2017-10-30] MEDS: Naloxegol Oxalate 25 MG Tab PO SCH (09:35)
[2017-10-30] MEDS: Iron Polysaccharides Complex 150 MG Cap PO SCH (09:35)
[2017-10-30] MEDS: Multivitamins with Minerals/Iron/Folic Acid/Lycopene Tab PO SCH (09:36)
[2017-10-30] MEDS: Metoprolol Tartrate 50 MG Tab PO SCH ×2 (09:36→21:16)
[2017-10-30] MEDS: Losartan 25 MG Tab PO SCH (09:37)
[2017-10-30] MEDS: Nystatin Ointment 15 GM Tube TOP SCH ×3 (09:38→21:06)
[2017-10-30] MEDS: Insulin Detemir 100 Units/ML 3 ML Pen SUBCUT SCH (10:10)
[2017-10-30] MEDS: Insulin Aspart 100 Units/ML 3 ML Pen SUBCUT SCH ×3 (12:03→21:02)
[2017-10-30] MEDS: Aspirin 81 MG Tab.EC PO SCH (21:06)
[2017-10-30] MEDS: oxyCODONE 5 MG Tab PO SCH (21:07)
[2017-10-30] MEDS: Sertraline 50 MG Tab PO SCH (21:08)
[2017-10-30] MEDS: Omeprazole 20 MG Cap.CR PO SCH (21:09)
[2017-10-30] MEDS: Simvastatin 20 MG Tab PO SCH (21:09)
[2017-10-30] MEDS: Cranberry Ext/C/L. Sporogenes Tab PO SCH (21:15)
[2017-10-30] MEDS: oxyCODONE 5 MG Tab PO PRN (23:59)
[2017-10-31] MEDS: Acetaminophen 500 MG Tab PO SCH ×3 (08:31→23:42)
[2017-10-31] MEDS: Docusate Sodium 100 MG Cap PO SCH (08:31)
[2017-10-31] MEDS: Naloxegol Oxalate 25 MG Tab PO SCH (08:31)
[2017-10-31] MEDS: Multivitamins with Minerals/Iron/Folic Acid/Lycopene Tab PO SCH (08:31)
[2017-10-31] MEDS: Nystatin Ointment 15 GM Tube TOP SCH ×3 (08:32→20:30)
[2017-10-31] MEDS: Iron Polysaccharides Complex 150 MG Cap PO SCH (08:32)
[2017-10-31] MEDS: Furosemide 20 MG Tab PO SCH ×2 (08:32→16:23)
[2017-10-31] MEDS: Allopurinol 100 MG Tab PO SCH (08:32)
[2017-10-31] MEDS: Losartan 25 MG Tab PO SCH (08:32)
[2017-10-31] MEDS: Metoprolol Tartrate 50 MG Tab PO SCH ×2 (08:32→21:02)
[2017-10-31] MEDS: Insulin Detemir 100 Units/ML 3 ML Pen SUBCUT SCH (10:31)
[2017-10-31] MEDS ORDERED: Insulin Aspart 100 Units/ML 3 ML Pen SUBCUT ONE (20:58)
[2017-10-31] MEDS: oxyCODONE 5 MG Tab PO SCH (21:02)
[2017-10-31] MEDS: Omeprazole 20 MG Cap.CR PO SCH (21:02)
[2017-10-31] MEDS: Simvastatin 20 MG Tab PO SCH (21:03)
[2017-10-31] MEDS: Aspirin 81 MG Tab.EC PO SCH (21:03)
[2017-10-31] MEDS: Sertraline 50 MG Tab PO SCH (21:03)
[2017-10-31] MEDS: Cranberry Ext/C/L. Sporogenes Tab PO SCH (21:20)
[2017-11-01] MEDS: Docusate Sodium 100 MG Cap PO SCH (08:36)
[2017-11-01] MEDS: Iron Polysaccharides Complex 150 MG Cap PO SCH (08:36)
[2017-11-01] MEDS: Naloxegol Oxalate 25 MG Tab PO SCH (08:37)
[2017-11-01] MEDS: Multivitamins with Minerals/Iron/Folic Acid/Lycopene Tab PO SCH (08:37)
[2017-11-01] MEDS: Furosemide 20 MG Tab PO SCH (08:37)
[2017-11-01] MEDS: Acetaminophen 500 MG Tab PO SCH ×3 (08:37→23:08)
[2017-11-01] MEDS: Allopurinol 100 MG Tab PO SCH (08:37)
[2017-11-01] MEDS: Losartan 25 MG Tab PO SCH (08:37)
[2017-11-01] MEDS: Nystatin Ointment 15 GM Tube TOP SCH ×3 (08:37→22:07)
[2017-11-01] MEDS: Metoprolol Tartrate 50 MG Tab PO SCH ×2 (08:38→21:26)
[2017-11-01] MEDS: Insulin Detemir 100 Units/ML 3 ML Pen SUBCUT SCH (08:38)
[2017-11-01] MEDS: Sodium Chloride 0.65% Nasal Spray 45 ML Bottle NAS PRN (16:32)
[2017-11-01] MEDS ORDERED: Cefepime 1 GM in Sodium Chloride 0.9% 50 ML IV SCH (17:30)
[2017-11-01] MEDS: Cranberry Ext/C/L. Sporogenes Tab PO SCH (21:22)
[2017-11-01] MEDS: Simvastatin 20 MG Tab PO SCH (21:23)
[2017-11-01] MEDS: Omeprazole 20 MG Cap.CR PO SCH (21:23)
[2017-11-01] MEDS: Sertraline 50 MG Tab PO SCH (21:23)
[2017-11-01] MEDS: oxyCODONE 5 MG Tab PO SCH (21:23)
[2017-11-01] MEDS: Aspirin 81 MG Tab.EC PO SCH (21:24)
[2017-11-01] MEDS: Cefepime 1 GM in Sodium Chloride 0.9% 50 ML IV SCH (22:06)
[2017-11-01] MEDS ORDERED: Sodium Chloride 0.9% 20 ML SDV FLUSH PRN (23:20)
[2017-11-02] MEDS: Acetaminophen 500 MG Tab PO SCH ×3 (08:40→23:11)
[2017-11-02] MEDS: Naloxegol Oxalate 25 MG Tab PO SCH (08:49)
[2017-11-02] MEDS: Docusate Sodium 100 MG Cap PO SCH (08:49)
[2017-11-02] MEDS: Metoprolol Tartrate 50 MG Tab PO SCH ×2 (08:49→22:02)
[2017-11-02] MEDS: Nystatin Ointment 15 GM Tube TOP SCH ×3 (08:49→23:13)
[2017-11-02] MEDS: Multivitamins with Minerals/Iron/Folic Acid/Lycopene Tab PO SCH (08:49)
[2017-11-02] MEDS: Losartan 25 MG Tab PO SCH (08:49)
[2017-11-02] MEDS: Iron Polysaccharides Complex 150 MG Cap PO SCH (08:49)
[2017-11-02] MEDS: Allopurinol 100 MG Tab PO SCH (08:49)
[2017-11-02] MEDS: Furosemide 20 MG Tab PO SCH ×2 (08:49→16:26)
[2017-11-02] MEDS: Insulin Detemir 100 Units/ML 3 ML Pen SUBCUT SCH (08:50)
[2017-11-02] MEDS: Sodium Chloride 0.65% Nasal Spray 45 ML Bottle NAS PRN ×2 (08:50→14:24)
--- NOTE | 2017-11-02 10:01 | PCM.PN ---
- General Info Date of Service: 11/02/17 Functional Status: Reports: Pain Controlled, Tolerating Diet, New Symptoms ( Mild sore throat), Incentive Spirometry. Denies: Ambulating - Review of Systems General: Reports: Night Sweats (She had night sweats 48 hours ago she stated). Denies: Fever, Weakness, Fatigue HEENT: Reports: Post Nasal Drip, Sinus Congestion, Sore Throat. Denies: Rhinitis Pulmonary: Denies: Shortness of Breath, Cough, Sputum Cardiovascular: Reports: Edema. Denies: Chest Pain Gastrointestinal: Denies: Abdominal Pain, Constipation, Diarrhea, Nausea Genitourinary: Denies: Dysuria Musculoskeletal: Reports: No Symptoms Skin: Reports: Other (Decubitus wound) Neurological: Reports: No Symptoms Psychiatric: Reports: No Symptoms - Patient Data Vitals - Most Recent: Last Vital Signs Temp 97.8 F 11/02/17 06:50 Pulse 85 11/02/17 08:49 Resp 22 H 11/02/17 06:50 BP 134/55 L 11/02/17 08:49 Pulse Ox 92 L 11/02/17 07:05 Weight - Most Recent: 232 lb 5 oz I&O - Last 24 Hours: Intake & Output 11/01/17 11/02/17 11/02/17 22:59 06:59 14:59 Intake Total 460 100 Balance 460 100 Lab Results Last 24 Hours: Laboratory Results - last 24 hr 11/01/17 11/01/17 11/01/17 Range/Units 11:36 13:35 13:35 WBC 26.8 H D (5.0-10.0) 10^3/uL RBC 3.12 L (3.80-5.50) 10^6/uL Hgb 9.9 L (12.0-16.0) g/dL Hct 29.0 L (37.0-47.0) % MCV 92.9 H (82.0-92.0) fL MCH 31.9 H (27.0-31.0) pg MCHC 34.3 (32.0-36.0) g/dL RDW 16.6 H (11.5-14.5) % Plt Count 97 L (150-300) 10^3/uL MPV 9.2 (7.4-10.4) fL Neut % (Auto) 90.4 H (50.0-70.0) % Lymph % (Auto) 6.5 L (20.0-40.0) % Nelson % (Auto) 2.0 (2.0-8.0) % Eos % (Auto) 0.4 L (1.0-3.0) % Baso % (Auto) 0.7 (0.0-1.0) % Neut # (Auto) 24.3 H (2.5-7.0) 10^3/uL Lymph # (Auto) 1.7 (1.0-4.0) 10^3/uL Nelson # (Auto) 0.5 (0.1-0.8) 10^3/uL Eos # (Auto) 0.1 (0.1-0.3) 10^3/uL Baso # (Auto) 0.2 H (0.0-0.1) 10^3/uL Sodium 137 (136-145) mmol/L Potassium 4.3 (3.3-5.3) mmol/L Chloride 104 (98-115) mmol/L Carbon Dioxide 25.4 (21.0-32.0) mmol/L BUN 21 (6-25) mg/dL Creatinine 1.20 H (0.51-1.17) mg/dL Est Cr Clr Drug Dosing 32.99 mL/min Estimated GFR (MDRD) 44 mL/min Glucose 202 H (70-110) mg/dL POC Glucose 204 H (74-106) mg/dl Calcium 8.4 L (8.7-10.3) mg/dL 11/01/17 11/01/17 11/02/17 Range/Units 17:33 21:21 07:04 WBC (5.0-10.0) 10^3/uL RBC (3.80-5.50) 10^6/uL Hgb (12.0-16.0) g/dL Hct (37.0-47.0) % MCV (82.0-92.0) fL MCH (27.0-31.0) pg MCHC (32.0-36.0) g/dL RDW (11.5-14.5) % Plt Count (150-300) 10^3/uL MPV (7.4-10.4) fL Neut % (Auto) (50.0-70.0) % Lymph % (Auto) (20.0-40.0) % Nelson % (Auto) (2.0-8.0) % Eos % (Auto) (1.0-3.0) % Baso % (Auto) (0.0-1.0) % Neut # (Auto) (2.5-7.0) 10^3/uL Lymph # (Auto) (1.0-4.0) 10^3/uL Nelson # (Auto) (0.1-0.8) 10^3/uL Eos # (Auto) (0.1-0.3) 10^3/uL Baso # (Auto) (0.0-0.1) 10^3/uL Sodium (136-145) mmol/L Potassium (3.3-5.3) mmol/L Chloride (98-115) mmol/L Carbon Dioxide (21.0-32.0) mmol/L BUN (6-25) mg/dL Creatinine (0.51-1.17) mg/dL Est Cr Clr Drug Dosing mL/min Estimated GFR (MDRD) mL/min Glucose (70-110) mg/dL POC Glucose 163 H 263 H 164 H (74-106) mg/dl Calcium (8.7-10.3) mg/dL Vipul Results Last 24 Hours: Microbiology 10/29/17 10:35 Miscellaneous Reference Culture - Final Wound - Sacrum Escherichia Coli Iso Consis W/Enterocutan Christin Gram Stain - Final Med Orders - Current: Current Medications Acetaminophen (Tylenol Extra Strength) 1,000 mg PO Q8H [facility] Last Admin: 11/02/17 08:40 Dose: 1,000 mg Allopurinol (Zyloprim) 100 mg PO DAILY [facility] Last Admin: 11/02/17 08:49 Dose: 100 mg Aspirin (Halfprin) 81 mg PO BEDTIME [facility] Last Admin: 11/01/17 21:24 Dose: 81 mg Calcium Carbonate/Glycine (Tums) 500 mg PO TID PRN PRN Reason: Indigestion Al Hydroxide/Mg Hydroxide 40 ml/ Diphenhydramine HCl 12.5 mg/ Lidocaine HCl 40 ml 0 ml PO TID PRN PRN Reason: mouth sores/burning Last Admin: 10/28/17 08:11 Dose: 10 ml Cranberry (Azo Cranberry) 1 each PO BEDTIME [facility] Last Admin: 11/01/17 21:22 Dose: 1 each Docusate Sodium (Colace) 100 mg PO DAILY [facility] Last Admin: 11/02/17 08:49 Dose: 100 mg Furosemide (Lasix) 20 mg PO DAILY [facility] Last Admin: 11/02/17 08:49 Dose: 20 mg Furosemide (Lasix) 20 mg PO SUTUTHSA@1700 [facility] Last Admin: 10/31/17 16:23 Dose: 20 mg Heparin Sodium (Porcine) (Heparin Lock Flush 100 Units/Ml) 500 units FLUSH ASDIRECTED PRN PRN Reason: Other Cefepime HCl 1 gm/ Sodium (Chloride) 50 mls @ 100 mls/hr IV Q24H [facility] Last Admin: 11/01/17 22:06 Dose: 100 mls/hr Insulin Detemir (Levemir) 40 unit SUBCUT DAILY [facility] Last Admin: 11/02/17 08:50 Dose: 40 units Lorazepam (Ativan) 0.25 mg PO Q8H PRN PRN Reason: Anxiety Last Admin: 10/25/17 22:23 Dose: 0.25 mg Losartan Potassium (Cozaar) 25 mg PO DAILY [facility] Last Admin: 11/02/17 08:49 Dose: 25 mg Magnesium Hydroxide (Milk Of Magnesia) 30 ml PO DAILY PRN PRN Reason: Constipation Last Admin: 10/26/17 09:10 Dose: 30 ml Metoprolol Tartrate (Lopressor) 50 mg PO BID [facility] Last Admin: 11/02/17 08:49 Dose: 50 mg Multivitamins/Minerals (Centrum) 1 tab PO DAILY [facility] Last Admin: 11/02/17 08:49 Dose: 1 tab Naloxegol (Movantik) 25 mg PO DAILY [facility] Last Admin: 11/02/17 08:49 Dose: 25 mg Nystatin (Nystatin Ointment) 0 gm TOP TID [facility] Last Admin: 11/02/17 08:49 Dose: 1 applic Omeprazole (Omeprazole) 20 mg PO DAILY@2100 [facility] Last Admin: 11/01/17 21:23 Dose: 20 mg Ondansetron HCl (Zofran Odt) 8 mg PO TID PRN PRN Reason: nausea or vomitting Last Admin: 10/29/17 09:27 Dose: 8 mg Oxycodone HCl (Oxycodone) 5 mg PO Q6H PRN PRN Reason: Pain Last Admin: 10/30/17 23:59 Dose: 5 mg Oxycodone HCl (Oxycodone) 5 mg PO BEDTIME [facility] Last Admin: 11/01/17 21:23 Dose: 5 mg Polyethylene Glycol (Miralax) 17 gm PO DAILY PRN PRN Reason: Constipation Last Admin: 10/24/17 12:52 Dose: 17 gm Polysaccharide Iron Complex (Ferrex 150) 150 mg PO DAILY [facility] Last Admin: 11/02/17 08:49 Dose: 150 mg Prochlorperazine Maleate (Compazine) 10 mg PO QID PRN PRN Reason: Nausea Last Admin: 10/29/17 07:52 Dose: 10 mg Senna/Docusate Sodium (Senna Plus) 1 tab PO BID [facility] Last Admin: 11/02/17 08:49 Dose: 1 tab Sertraline HCl (Zoloft) 100 mg PO BEDTIME [facility] Last Admin: 11/01/17 21:23 Dose: 100 mg Simvastatin (Zocor) 40 mg PO BEDTIME [facility] Last Admin: 11/01/17 21:23 Dose: 40 mg Sodium Chloride ([place] Nasal [place]) 1 ml ALDO QID PRN PRN Reason: Dryness Last Admin: 11/02/17 08:50 Dose: 1 spray Sodium Chloride (Normal Saline) 20 ml FLUSH ASDIRECTED PRN PRN Reason: Other Discontinued Medications Acetaminophen (Tylenol Extra Strength) 1,000 mg PO Q8H [facility] Last Admin: 10/23/17 02:00 Dose: 1,000 mg Hydrocodone Bitart/Acetaminophen ([place] 325-5 Mg) 1 - 2 tab PO Q4H PRN PRN Reason: Moderate Pain Last Admin: 10/24/17 19:26 Dose: 1 tab Cefepime HCl 1 gm/ Sodium (Chloride) 50 mls @ 100 mls/hr IV Q8H [facility] Last Admin: 11/01/17 18:52 Dose: Not Given Insulin Aspart (Novolog) 0 unit SUBCUT WITHMEALSANDBED [facility]; Protocol Stop: 10/31/17 00:00 Last Admin: 10/30/17 21:02 Dose: 5 units Insulin Aspart (Novolog) 2 unit SUBCUT ONETIME ONE Stop: 10/31/17 20:59 Last Admin: 10/31/17 21:07 Dose: 2 units Insulin Detemir (Levemir) 44 unit SUBCUT DAILY [facility] Last Admin: 10/30/17 10:10 Dose: Not Given Mupirocin (Bactroban Crm) 1 gm TOP TID [facility] Last Admin: 10/29/17 11:29 Dose: Not Given Insulin Degludec ( (Tresiba) 44units) 44 units SUBCUT DAILY [facility] Nystatin (Nystop) 0 gm TOP BID [facility] Last Admin: 10/25/17 08:58 Dose: 1 applic Nystatin (Nystop) 0 gm TOP TID [facility] Last Admin: 10/26/17 11:15 Dose: Not Given Olanzapine (Zyprexa) 10 mg PO ASDIRECTED [facility] Omeprazole (Omeprazole) 20 mg PO SUTUTHSA@2100 [facility] Last Admin: 10/23/17 21:24 Dose: 20 mg Oxycodone HCl (Oxycodone) 5 mg PO Q6H [facility] Last Admin: 10/23/17 06:11 Dose: 5 mg Oxycodone HCl (Oxycodone) 5 mg PO Q6H [facility] Last Admin: 10/24/17 06:21 Dose: Not Given Prochlorperazine Maleate (Compazine) 10 mg PO QID PRN PRN Reason: Nausea Senna/Docusate Sodium (Senna Plus) 1 tab PO BID PRN PRN Reason: Constipation Last Admin: 10/28/17 08:08 Dose: 1 tab - Exam Quality Assessment: No: Supplemental Oxygen General: Alert, Oriented Neck: Supple Lungs: Clear to Auscultation, Normal Respiratory Effort Cardiovascular: Regular Rate, Regular Rhythm GI/Abdominal Exam: Soft, No Distention (Female) Exam: Deferred Back Exam: No: CVA Tenderness (L), CVA Tenderness (R) Extremities: Pedal Edema Peripheral Pulses: 2+: Radial (L), Radial (R) Skin: Other (See previous description on decubitus ulcer) Neurological: No New Focal Deficit Psy/Mental Status: Alert, Normal Affect, Normal Mood - Problem List Review Problem List Initiated/Reviewed/Updated: Yes - My Orders Last 24 Hours: My Active Orders 11/01/17 11:49 Communication Order [RC] DAILY - Plan Plan:: HPI: This is a 76 year old female who had previously been in swing bed status due to a left humeral fracture and deconditioning. The patient has been recently diagnosed with peritoneal carcinomatosis. The patient was sent up to [facility] on 10/20/17 for abdominal paracentesis and pleurx catheter placement. She had labs done that day which showed a hemoglobin of 6.5. She was then admitted to their hospitalist services. She was given 2 units of PRBCs. She was due for her second cycle of carboplatin and taxol while there and this was completed on 10/21/17. She was also given Neulasta prior to discharge. She has been tolerating her treatment well and has been changed from a weekly protocol to every 3 week protocol. The patient was admitted back to swing bed status for rehabilitation of her fracture and deconditioning. PRIMARY ASSESSMENT/PLAN: update today on rounds, only complaint today is mild sore throat, no cough, patient was started on broad-spectrum cefepime due to leukocytosis increased white count, blood cultures taken, no shortness of breath, no dysuria however did have night sweats 48 hours ago. Neutrophilia, started cefepime, good blood pressure, afebrile, mild daily epistaxis,mild nausea, slightly hard stools, three-step appetite, no fever, her pain mainly due to debridement of decubitus ulcer. does have shortness of breath on mild exertion, Pleurx catheter drained 150 mL Deconditioning. ongoing physical therapy, pain control prior to PT and wound debridement epistaxis, mild, controlled, saline nasal spray, check platelets today. nausea, Zyprexa, Compazine 4 times a day when necessary, Zofran before meals, monitor for tardive dyskinesia sx, Left humeral head fracture. Continue with sling and swath. She was seen by Dr. Singer, orthopedist, on 10/18/17 and it was advised for conservative management to include sling and swath for 6 weeks followed by aggressive therapy for range of motion and strengthening. Stage 3 pressure ulcer to coccyx, POA, wound debrided some slough, mild odor, reculture shows Escherichia coli, Off loading, patient will be set up for sharp debridement Immunocompromised host. next chemotherapy treatment November 10, Recent chemotherapy. Next chemo tx November 10. WBC 6.2. ANC 520.8. monitor for stomatitis , Magic mouthwash ordered PRN. Yeast to abdominal folds. changed to nystatin cream, Malignant ascites. 150 mL out today of pleurx catheter. May need frequent drainage despite no shortness of breath. Anemia due to antineoplastic chemotherapy. Hgb on discharge 9.4. Constipation. Continue movantik however increase senna. SECONDARY ASSESSMENT/PLAN: Primary peritoneal carcinomatosis. Continue with 3 week protocol of carboplatin and taxol per oncology. She is to receive zyprexa days 1-4 of chemotherapy. Oxycodone changed to PRN due to confusion, however will schedule 5 mg at bedtime due to pain and PRN during the day. Discontinue hydrocodone. History of endometrial cancer, s/p hysterceomty 2009. CAD. HTN, stable. Continue lopressor and losartan. Aortic stenosis. History of atrial flutter. Type 2 DM. Accuchecks daily. Tresiba switched to levemir daily due to not being available in house. CKD stage 3, stable. GFR 49, creatinine 1.09. Hyperlipidemia. Continue simvastatin. Obesity. Diabetic retinopathy. Depression. Continue zoloft. GERD. Continue omeprazole. OAB. Osteoarthritis. History of hypercalcemia. Calcium 8.4 corrects to 9.4. Hypoalbuminemia. Albumin 2.02, total protein 5.4. DVT prophylaxis. Score of 6, however given recent anemia requiring transfusion and with patient mobile will hold off on lovenox for now. Continue with phan stockings. Overall plan: Continue cefepime, will de-escalate as soon as possible, will set her up for sharp debridement and overall, chest x-ray today, throat culture today
[2017-11-02] MEDS ORDERED: Sodium Chloride 0.9% 10 ML Syringe FLUSH SCH (10:15)
[2017-11-02] MEDS: Zinc (Zinc Gluconate) 50 MG Tab PO SCH (10:54)
[2017-11-02] MEDS: Sodium Chloride 0.9% 10 ML Syringe FLUSH SCH ×2 (12:58→22:06)
[2017-11-02] MEDS: Cefepime 1 GM in Sodium Chloride 0.9% 50 ML IV SCH (22:00)
[2017-11-02] MEDS: oxyCODONE 5 MG Tab PO SCH (22:01)
[2017-11-02] MEDS: Omeprazole 20 MG Cap.CR PO SCH (22:01)
[2017-11-02] MEDS: Simvastatin 20 MG Tab PO SCH (22:01)
[2017-11-02] MEDS: Sertraline 50 MG Tab PO SCH (22:02)
[2017-11-02] MEDS: Aspirin 81 MG Tab.EC PO SCH (22:02)
[2017-11-02] MEDS: Cranberry Ext/C/L. Sporogenes Tab PO SCH (22:02)
[2017-11-02] MEDS ORDERED: Sodium Chloride 0.9% 50 ML ONE (22:09)
[2017-11-03] MEDS: Sodium Chloride 0.9% 10 ML Syringe FLUSH SCH ×3 (05:45→22:16)
[2017-11-03] MEDS: Acetaminophen 500 MG Tab PO SCH ×3 (08:10→23:56)
[2017-11-03] MEDS: Multivitamins with Minerals/Iron/Folic Acid/Lycopene Tab PO SCH (08:22)
[2017-11-03] MEDS: Allopurinol 100 MG Tab PO SCH (08:22)
[2017-11-03] MEDS: Zinc (Zinc Gluconate) 50 MG Tab PO SCH (08:22)
[2017-11-03] MEDS: Furosemide 20 MG Tab PO SCH (08:23)
[2017-11-03] MEDS: Iron Polysaccharides Complex 150 MG Cap PO SCH (08:23)
[2017-11-03] MEDS: Docusate Sodium 100 MG Cap PO SCH (08:23)
[2017-11-03] MEDS: Naloxegol Oxalate 25 MG Tab PO SCH (08:23)
[2017-11-03] MEDS: Metoprolol Tartrate 50 MG Tab PO SCH ×2 (08:23→21:51)
[2017-11-03] MEDS: Losartan 25 MG Tab PO SCH (08:24)
[2017-11-03] MEDS: Insulin Detemir 100 Units/ML 3 ML Pen SUBCUT SCH (08:32)
[2017-11-03] MEDS: Nystatin Ointment 15 GM Tube TOP SCH ×3 (08:34→21:33)
[2017-11-03] MEDS: Sertraline 50 MG Tab PO SCH (21:28)
[2017-11-03] MEDS: oxyCODONE 5 MG Tab PO SCH (21:28)
[2017-11-03] MEDS: Omeprazole 20 MG Cap.CR PO SCH (21:29)
[2017-11-03] MEDS: Simvastatin 20 MG Tab PO SCH (21:30)
[2017-11-03] MEDS: Aspirin 81 MG Tab.EC PO SCH (21:35)
[2017-11-03] MEDS: Cranberry Ext/C/L. Sporogenes Tab PO SCH (21:36)
[2017-11-03] MEDS ORDERED: Sodium Chloride 0.9% 50 ML ONE (21:45)
[2017-11-03] MEDS: Cefepime 1 GM in Sodium Chloride 0.9% 50 ML IV SCH (21:52)
[2017-11-04] MEDS: Sodium Chloride 0.9% 10 ML Syringe FLUSH SCH ×3 (06:00→21:40)
[2017-11-04] MEDS: Acetaminophen 500 MG Tab PO SCH ×2 (08:01→16:07)
[2017-11-04] MEDS: Losartan 25 MG Tab PO SCH (09:41)
[2017-11-04] MEDS: Iron Polysaccharides Complex 150 MG Cap PO SCH (09:42)
[2017-11-04] MEDS: Docusate Sodium 100 MG Cap PO SCH (09:42)
[2017-11-04] MEDS: Multivitamins with Minerals/Iron/Folic Acid/Lycopene Tab PO SCH (09:42)
[2017-11-04] MEDS: Zinc (Zinc Gluconate) 50 MG Tab PO SCH (09:43)
[2017-11-04] MEDS: Furosemide 20 MG Tab PO SCH ×2 (09:43→16:54)
[2017-11-04] MEDS: Metoprolol Tartrate 50 MG Tab PO SCH ×2 (09:43→20:44)
[2017-11-04] MEDS: Allopurinol 100 MG Tab PO SCH (09:43)
[2017-11-04] MEDS: Naloxegol Oxalate 25 MG Tab PO SCH (09:44)
[2017-11-04] MEDS: Insulin Detemir 100 Units/ML 3 ML Pen SUBCUT SCH (09:44)
[2017-11-04] MEDS: oxyCODONE 5 MG Tab PO PRN (14:26)
[2017-11-04] MEDS: Nystatin Ointment 15 GM Tube TOP SCH (15:49)
[2017-11-04] MEDS: Cefepime 1 GM in Sodium Chloride 0.9% 50 ML IV SCH (20:38)
[2017-11-04] MEDS: Simvastatin 20 MG Tab PO SCH (20:42)
[2017-11-04] MEDS: Sertraline 50 MG Tab PO SCH (20:42)
[2017-11-04] MEDS: oxyCODONE 5 MG Tab PO SCH (20:42)
[2017-11-04] MEDS: Cranberry Ext/C/L. Sporogenes Tab PO SCH (20:43)
[2017-11-04] MEDS: Aspirin 81 MG Tab.EC PO SCH (20:43)
[2017-11-04] MEDS: Omeprazole 20 MG Cap.CR PO SCH (20:44)
[2017-11-04] MEDS ORDERED: Sodium Chloride 0.9% 50 ML IV SCH (21:00)
[2017-11-05] MEDS: Acetaminophen 500 MG Tab PO SCH ×3 (00:20→16:05)
[2017-11-05] MEDS: Sodium Chloride 0.9% 10 ML Syringe FLUSH SCH ×3 (06:23→20:29)
[2017-11-05] MEDS: Insulin Detemir 100 Units/ML 3 ML Pen SUBCUT SCH (08:23)
[2017-11-05] MEDS: Zinc (Zinc Gluconate) 50 MG Tab PO SCH (08:32)
[2017-11-05] MEDS: Naloxegol Oxalate 25 MG Tab PO SCH (08:33)
[2017-11-05] MEDS: Iron Polysaccharides Complex 150 MG Cap PO SCH (08:33)
[2017-11-05] MEDS: Allopurinol 100 MG Tab PO SCH (08:33)
[2017-11-05] MEDS: Furosemide 20 MG Tab PO SCH (08:34)
[2017-11-05] MEDS: Metoprolol Tartrate 50 MG Tab PO SCH ×2 (08:34→20:27)
[2017-11-05] MEDS: Losartan 25 MG Tab PO SCH (08:34)
[2017-11-05] MEDS: Multivitamins with Minerals/Iron/Folic Acid/Lycopene Tab PO SCH (08:35)
[2017-11-05] MEDS: Docusate Sodium 100 MG Cap PO SCH (08:35)
[2017-11-05] MEDS ORDERED: Lidocaine 1% with EPINEPHrine 1:100,000 20 ML MDV INJECT ONE (09:00)
[2017-11-05] MEDS: Nystatin Ointment 15 GM Tube TOP PRN (09:25)
[2017-11-05] MEDS: oxyCODONE 5 MG Tab PO PRN (10:37)
--- NOTE | 2017-11-05 14:21 | OR ---
DATE OF SURGERY: 10/22/2017 SURGEON: Lisa Payton MD LOCATION: [facility]. PREOPERATIVE DIAGNOSIS: 1. Possible abscess of the right anterior abdominal wall. 2. The patient has intraabdominal intraperitoneal malignancy. She does have a PleurX catheter in place. POSTOPERATIVE DIAGNOSIS: 1. Possible abscess of the right anterior abdominal wall . 2. The patient has intraabdominal intraperitoneal malignancy. She does have a PleurX catheter in place. OPERATION PERFORMED: Incision and drainage of abscess using ultrasound guidance. DESCRIPTION OF PROCEDURE: Informed consent was obtained from the patient regarding this procedure. All possible complications were thoroughly discussed. The patient understands and wishes to proceed. She was kept in the supine position. Skin prep was performed with ChloraPrep. Live ultrasound guidance was used and we infiltrated the skin in the deeper structures with Xylocaine 1%. We made a small cruciate shaped incision and inserted the Aggie into the depths of the suspected abscess. Very little drainage came out. C and S was taken. A 0.25 inch Julian drain was placed into the abscess cavity and anchored to the skin with 4-0 silk suture. Sterile dressings were applied. The patient tolerated the procedure very well. There were no complications. The drain will be removed in 24-48 hours. /[id number]/MODL MTDD
[2017-11-05] MEDS: Simvastatin 20 MG Tab PO SCH (20:26)
[2017-11-05] MEDS: Aspirin 81 MG Tab.EC PO SCH (20:27)
[2017-11-05] MEDS: oxyCODONE 5 MG Tab PO SCH (20:27)
[2017-11-05] MEDS: Sertraline 50 MG Tab PO SCH (20:27)
[2017-11-05] MEDS: Omeprazole 20 MG Cap.CR PO SCH (20:27)
[2017-11-05] MEDS: Cranberry Ext/C/L. Sporogenes Tab PO SCH (20:28)
[2017-11-05] MEDS: Cefepime 1 GM in Sodium Chloride 0.9% 50 ML IV SCH (20:30)
[2017-11-06] MEDS: Acetaminophen 500 MG Tab PO SCH ×4 (00:50→23:34)
[2017-11-06] MEDS: Sodium Chloride 0.9% 10 ML Syringe FLUSH SCH ×3 (06:32→21:47)
[2017-11-06] MEDS: Zinc (Zinc Gluconate) 50 MG Tab PO SCH (08:08)
[2017-11-06] MEDS: Multivitamins with Minerals/Iron/Folic Acid/Lycopene Tab PO SCH (08:10)
[2017-11-06] MEDS: Furosemide 20 MG Tab PO SCH ×2 (08:10→16:15)
[2017-11-06] MEDS: Naloxegol Oxalate 25 MG Tab PO SCH (08:11)
[2017-11-06] MEDS: Allopurinol 100 MG Tab PO SCH (08:11)
[2017-11-06] MEDS: Docusate Sodium 100 MG Cap PO SCH (08:11)
[2017-11-06] MEDS: Insulin Detemir 100 Units/ML 3 ML Pen SUBCUT SCH (08:12)
[2017-11-06] MEDS: Losartan 25 MG Tab PO SCH (08:13)
[2017-11-06] MEDS: Iron Polysaccharides Complex 150 MG Cap PO SCH (08:13)
[2017-11-06] MEDS: Metoprolol Tartrate 50 MG Tab PO SCH ×2 (08:13→21:45)
[2017-11-06] MEDS: Nystatin Ointment 15 GM Tube TOP PRN (08:15)
[2017-11-06] MEDS: oxyCODONE 5 MG Tab PO PRN ×2 (10:12→17:56)
[2017-11-06] MEDS: Cefepime 1 GM in Sodium Chloride 0.9% 50 ML IV SCH (21:23)
[2017-11-06] MEDS: Aspirin 81 MG Tab.EC PO SCH (21:44)
[2017-11-06] MEDS: Omeprazole 20 MG Cap.CR PO SCH (21:46)
[2017-11-06] MEDS: oxyCODONE 5 MG Tab PO SCH (21:46)
[2017-11-06] MEDS: Simvastatin 20 MG Tab PO SCH (21:47)
[2017-11-06] MEDS: Sertraline 50 MG Tab PO SCH (21:48)
[2017-11-06] MEDS: Cranberry Ext/C/L. Sporogenes Tab PO SCH (21:49)
[2017-11-07] MEDS: Sodium Chloride 0.9% 10 ML Syringe FLUSH SCH ×3 (06:23→21:39)
[2017-11-07] MEDS: Furosemide 20 MG Tab PO SCH ×2 (08:07→17:24)
[2017-11-07] MEDS: Zinc (Zinc Gluconate) 50 MG Tab PO SCH (08:07)
[2017-11-07] MEDS: Naloxegol Oxalate 25 MG Tab PO SCH (08:08)
[2017-11-07] MEDS: Docusate Sodium 100 MG Cap PO SCH (08:09)
[2017-11-07] MEDS: Losartan 25 MG Tab PO SCH (08:10)
[2017-11-07] MEDS: Metoprolol Tartrate 50 MG Tab PO SCH ×2 (08:10→21:47)
[2017-11-07] MEDS: Multivitamins with Minerals/Iron/Folic Acid/Lycopene Tab PO SCH (08:10)
[2017-11-07] MEDS: Acetaminophen 500 MG Tab PO SCH ×2 (08:11→17:23)
[2017-11-07] MEDS: Allopurinol 100 MG Tab PO SCH (08:11)
[2017-11-07] MEDS: Insulin Detemir 100 Units/ML 3 ML Pen SUBCUT SCH (08:12)
[2017-11-07] MEDS: Iron Polysaccharides Complex 150 MG Cap PO SCH (08:12)
[2017-11-07] MEDS: Nystatin Ointment 15 GM Tube TOP PRN (08:42)
[2017-11-07] MEDS: oxyCODONE 5 MG Tab PO PRN (12:56)
[2017-11-07] MEDS: Cefepime 1 GM in Sodium Chloride 0.9% 50 ML IV SCH (20:32)
[2017-11-07] MEDS: Cranberry Ext/C/L. Sporogenes Tab PO SCH (21:46)
[2017-11-07] MEDS: Aspirin 81 MG Tab.EC PO SCH (21:47)
[2017-11-07] MEDS: oxyCODONE 5 MG Tab PO SCH (21:48)
[2017-11-07] MEDS: Omeprazole 20 MG Cap.CR PO SCH (21:48)
[2017-11-07] MEDS: Simvastatin 20 MG Tab PO SCH (21:49)
[2017-11-07] MEDS: Sertraline 50 MG Tab PO SCH (21:49)
[2017-11-08] MEDS: Acetaminophen 500 MG Tab PO SCH ×3 (00:54→16:47)
[2017-11-08] MEDS: Sodium Chloride 0.9% 10 ML Syringe FLUSH SCH ×3 (06:18→22:03)
[2017-11-08] MEDS ORDERED: Acetaminophen 325 MG Tab ONE (07:35)
[2017-11-08] MEDS: Metoprolol Tartrate 50 MG Tab PO SCH ×2 (08:30→22:02)
[2017-11-08] MEDS: Multivitamins with Minerals/Iron/Folic Acid/Lycopene Tab PO SCH (08:30)
[2017-11-08] MEDS: Losartan 25 MG Tab PO SCH (08:30)
[2017-11-08] MEDS: Docusate Sodium 100 MG Cap PO SCH (08:30)
[2017-11-08] MEDS: Zinc (Zinc Gluconate) 50 MG Tab PO SCH (08:31)
[2017-11-08] MEDS: Furosemide 20 MG Tab PO SCH (08:31)
[2017-11-08] MEDS: Naloxegol Oxalate 25 MG Tab PO SCH (08:31)
[2017-11-08] MEDS: Allopurinol 100 MG Tab PO SCH (08:31)
[2017-11-08] MEDS: Iron Polysaccharides Complex 150 MG Cap PO SCH (08:31)
[2017-11-08] MEDS: Insulin Detemir 100 Units/ML 3 ML Pen SUBCUT SCH (08:32)
[2017-11-08 10:52] LABS: CHLORIDE,CL 101 mmol/L (98-115); SODIUM,NA 136 mmol/L (136-145)
[2017-11-08] MEDS: oxyCODONE 5 MG Tab PO PRN (15:21)
[2017-11-08] MEDS: oxyCODONE 5 MG Tab PO SCH (22:01)
[2017-11-08] MEDS: Sertraline 50 MG Tab PO SCH (22:02)
[2017-11-08] MEDS: Simvastatin 20 MG Tab PO SCH (22:02)
[2017-11-08] MEDS: Aspirin 81 MG Tab.EC PO SCH (22:02)
[2017-11-08] MEDS: Omeprazole 20 MG Cap.CR PO SCH (22:03)
[2017-11-09] MEDS: Acetaminophen 500 MG Tab PO SCH ×3 (00:56→17:04)
[2017-11-09] MEDS: Sodium Chloride 0.9% 10 ML Syringe FLUSH SCH ×3 (05:46→20:34)
[2017-11-09] MEDS: Iron Polysaccharides Complex 150 MG Cap PO SCH (08:23)
[2017-11-09] MEDS: Zinc (Zinc Gluconate) 50 MG Tab PO SCH (08:24)
[2017-11-09] MEDS: Multivitamins with Minerals/Iron/Folic Acid/Lycopene Tab PO SCH (08:24)
[2017-11-09] MEDS: Naloxegol Oxalate 25 MG Tab PO SCH (08:24)
[2017-11-09] MEDS: Furosemide 20 MG Tab PO SCH ×2 (08:24→17:06)
[2017-11-09] MEDS: Allopurinol 100 MG Tab PO SCH (08:25)
[2017-11-09] MEDS: Docusate Sodium 100 MG Cap PO SCH (08:25)
[2017-11-09] MEDS: Losartan 25 MG Tab PO SCH (08:33)
[2017-11-09] MEDS: Metoprolol Tartrate 50 MG Tab PO SCH ×2 (08:33→20:35)
[2017-11-09] MEDS: Insulin Detemir 100 Units/ML 3 ML Pen SUBCUT SCH (08:34)
[2017-11-09] MEDS: Nystatin Ointment 15 GM Tube TOP PRN (08:35)
[2017-11-09] MEDS: oxyCODONE 5 MG Tab PO PRN (10:41)
[2017-11-09] MEDS: Sertraline 50 MG Tab PO SCH (20:35)
[2017-11-09] MEDS: Omeprazole 20 MG Cap.CR PO SCH (20:35)
[2017-11-09] MEDS: Simvastatin 20 MG Tab PO SCH (20:35)
[2017-11-09] MEDS: Aspirin 81 MG Tab.EC PO SCH (20:35)
[2017-11-09] MEDS: oxyCODONE 5 MG Tab PO SCH (20:36)
[2017-11-10] MEDS: Acetaminophen 500 MG Tab PO SCH ×3 (01:25→16:16)
[2017-11-10] MEDS: Sodium Chloride 0.9% 10 ML Syringe FLUSH SCH ×3 (06:13→20:45)
[2017-11-10] MEDS: Naloxegol Oxalate 25 MG Tab PO SCH (09:13)
[2017-11-10] MEDS: Metoprolol Tartrate 50 MG Tab PO SCH ×2 (09:13→20:42)
[2017-11-10] MEDS: Multivitamins with Minerals/Iron/Folic Acid/Lycopene Tab PO SCH (09:14)
[2017-11-10] MEDS: Zinc (Zinc Gluconate) 50 MG Tab PO SCH (09:14)
[2017-11-10] MEDS: Docusate Sodium 100 MG Cap PO SCH (09:15)
[2017-11-10] MEDS: Losartan 25 MG Tab PO SCH (09:15)
[2017-11-10] MEDS: Iron Polysaccharides Complex 150 MG Cap PO SCH (09:15)
[2017-11-10] MEDS: Furosemide 20 MG Tab PO SCH (09:16)
[2017-11-10] MEDS: Insulin Detemir 100 Units/ML 3 ML Pen SUBCUT SCH (09:17)
[2017-11-10] MEDS: Allopurinol 100 MG Tab PO SCH (09:19)
[2017-11-10] MEDS: oxyCODONE 5 MG Tab PO PRN (12:15)
[2017-11-10] MEDS: Aspirin 81 MG Tab.EC PO SCH (20:42)
[2017-11-10] MEDS: Omeprazole 20 MG Cap.CR PO SCH (20:43)
[2017-11-10] MEDS: oxyCODONE 5 MG Tab PO SCH (20:44)
[2017-11-10] MEDS: Sertraline 50 MG Tab PO SCH (20:45)
[2017-11-10] MEDS: Simvastatin 20 MG Tab PO SCH (20:45)
[2017-11-11] MEDS: Acetaminophen 500 MG Tab PO SCH ×4 (00:13→16:30)
[2017-11-11] MEDS: Sodium Chloride 0.9% 10 ML Syringe FLUSH SCH ×2 (05:29→12:20)
[2017-11-11] MEDS: Zinc (Zinc Gluconate) 50 MG Tab PO SCH ×2 (06:19→08:49)
[2017-11-11] MEDS: Multivitamins with Minerals/Iron/Folic Acid/Lycopene Tab PO SCH ×2 (06:19→08:48)
[2017-11-11] MEDS: Iron Polysaccharides Complex 150 MG Cap PO SCH ×2 (06:19→08:48)
[2017-11-11] MEDS: Furosemide 20 MG Tab PO SCH ×3 (06:19→18:31)
[2017-11-11] MEDS: Allopurinol 100 MG Tab PO SCH ×2 (06:20→08:51)
[2017-11-11] MEDS: Losartan 25 MG Tab PO SCH ×2 (06:20→08:48)
[2017-11-11] MEDS: Metoprolol Tartrate 50 MG Tab PO SCH ×3 (06:21→20:48)
[2017-11-11] MEDS: oxyCODONE 5 MG Tab PO PRN (06:21)
[2017-11-11] MEDS: Insulin Detemir 100 Units/ML 3 ML Pen SUBCUT SCH ×2 (06:23→08:48)
[2017-11-11] MEDS: Docusate Sodium 100 MG Cap PO SCH (08:48)
[2017-11-11] MEDS: Naloxegol Oxalate 25 MG Tab PO SCH (08:49)
[2017-11-11] MEDS: oxyCODONE 5 MG Tab PO SCH (20:47)
[2017-11-11] MEDS: Omeprazole 20 MG Cap.CR PO SCH (20:49)
[2017-11-11] MEDS: Simvastatin 20 MG Tab PO SCH (20:50)
[2017-11-11] MEDS: Sertraline 50 MG Tab PO SCH (20:50)
[2017-11-11] MEDS: OLANZapine 5 MG Tab PO SCH (20:51)
[2017-11-11] MEDS: Aspirin 81 MG Tab.EC PO SCH (20:52)
[2017-11-12] MEDS: Acetaminophen 500 MG Tab PO SCH ×3 (01:00→15:55)
[2017-11-12] MEDS: Losartan 25 MG Tab PO SCH (08:39)
[2017-11-12] MEDS: Naloxegol Oxalate 25 MG Tab PO SCH (08:39)
[2017-11-12] MEDS: Zinc (Zinc Gluconate) 50 MG Tab PO SCH (08:40)
[2017-11-12] MEDS: Docusate Sodium 100 MG Cap PO SCH (08:40)
[2017-11-12] MEDS: Furosemide 20 MG Tab PO SCH (08:41)
[2017-11-12] MEDS: Allopurinol 100 MG Tab PO SCH (08:41)
[2017-11-12] MEDS: Multivitamins with Minerals/Iron/Folic Acid/Lycopene Tab PO SCH (08:42)
[2017-11-12] MEDS: Iron Polysaccharides Complex 150 MG Cap PO SCH (08:43)
[2017-11-12] MEDS: Insulin Detemir 100 Units/ML 3 ML Pen SUBCUT SCH (08:43)
[2017-11-12] MEDS: Metoprolol Tartrate 50 MG Tab PO SCH ×2 (08:43→21:06)
--- NOTE | 2017-11-12 12:00 | PN ---
11/12/2017 PATIENT NAME: ZEYNEP MCGEE SUBJECTIVE: This is a 76-year-old female patient with a history of peritoneal carcinomatosis. The patient was started on chemotherapy. After the first day of chemotherapy, she fell backwards down two stairs and fractured her left humeral head. The patient had a PleurX catheter placed in her abdomen to drain malignant ascites. The patient states today she is feeling pretty good. She says yesterday, she had to go to [place] and see Dr. Collier. She says that she was gone for about 11 hours and she has really wore out from the long day of traveling and being in the hospital. She says yesterday it was really hot out. She says it was 93 degrees. She says today she is feeling a lot better. She says her main concern is that her wound to her coccyx still hurts quite a bit. She says her left arm does not hurt as long as she keeps in the sling and she does not move it. She denies any fever, chills, any chest pain or shortness of breath. OBJECTIVE: VITAL SIGNS: Today temperature is 98.3, pulse is 74, blood pressure 128/54, respiratory rate is 18, oxygen saturation on room air is 96%. The patient's weight today is 227. GENERAL: This is an elderly obese white female in no acute distress. She is having no hair. She has her left arm in a sling. She does have abdominal dressing intact and dry. LUNGS: Lung sounds are clear throughout lung penny. ABDOMEN: Dressing dry and intact. Bowel sounds present x4. HEART: Tones are regular rate and rhythm. No murmurs identified. No pedal edema noted on exam. LABORATORY DATA: The patient's lab work that she last had was on 11/08/2017. CBC showed a white count elevated at 12.3, hemoglobin 9.3, and platelet count at 160. Chemistry panel was unremarkable except for alkaline phosphatase elevated at 123, total protein low at 6.2, and albumin low at 2.02. IMPRESSION AND PLAN: 1. Peritoneal carcinomatosis. Plan: The patient was just in [place] yesterday and seen Dr. Collier, in Oncology. He is going to continue with her three week protocol of carboplatin and taxol. The patient's lab work seems to be staying stable at this time. 2. Left humeral head fracture. Plan: We will continue the patient in a sling. The patient is getting some x-rays obtained today here in the hospital. She will follow up with Dr. Singer in Orthopedics, Wednesday at the [facility] here in [place]. 3. Stage III pressure ulcer to coccyx. We will continue with dressing changes per nursing staff. Dr. Gold Payton was going to debride it. The patient really did not want it debrided. She says it is really painful to sit after debridements. This is a chronic problem. She has had multiple surgeries dating back into her teenage years. Chronic conditions: 4. History of gout. Plan: Continue with allopurinol 100 mg daily. 5. Hypertension with coronary artery disease. Plan: Continue with baby aspirin 81 mg daily along with Lasix as ordered. Also continue with losartan 25 mg daily and metoprolol tartrate 50 mg twice daily. 6. Chronic constipation. Plan: Continue with Colace, senna, and Movantik as ordered. 7. Diabetes mellitus type 2. Plan: Continue with blood sugar checks along with Levemir 40 units subcutaneously daily. 8. History of anemia. Plan: Continue with Niferex 150 mg daily. 9. Yeast dermatitis to abdominal folds under her breasts. Plan: Continue with nystatin ointment as needed for rash. 10.Sleep disorder. Plan: Continue with Zyprexa as ordered. 11.Gastroesophageal reflux disease. Continue with omeprazole 20 mg daily. 12.Pain. Plan: Continue with Oxycodone 5 mg at bedtime and also as needed for pain. 13.History of depression. Plan: Continue with Zoloft 100 mg daily. 14.History of hyperlipidemia. Plan: Continue with Zocor 40 mg daily. /[id number]/MODL MTDD
[2017-11-12] MEDS: oxyCODONE 5 MG Tab PO PRN (12:25)
[2017-11-12] MEDS ORDERED: Insulin Aspart 100 Units/ML 3 ML Pen SUBCUT ONE (17:43)
[2017-11-12] MEDS: Sodium Chloride 0.65% Nasal Spray 45 ML Bottle NAS PRN (21:03)
[2017-11-12] MEDS: Omeprazole 20 MG Cap.CR PO SCH (21:04)
[2017-11-12] MEDS: Simvastatin 20 MG Tab PO SCH (21:04)
[2017-11-12] MEDS: Sertraline 50 MG Tab PO SCH (21:04)
[2017-11-12] MEDS: OLANZapine 5 MG Tab PO SCH (21:04)
[2017-11-12] MEDS: Aspirin 81 MG Tab.EC PO SCH (21:06)
[2017-11-12] MEDS: oxyCODONE 5 MG Tab PO SCH (21:07)
[2017-11-13] MEDS: Acetaminophen 500 MG Tab PO SCH ×3 (00:26→16:52)
[2017-11-13] MEDS: Multivitamins with Minerals/Iron/Folic Acid/Lycopene Tab PO SCH (08:13)
[2017-11-13] MEDS: Allopurinol 100 MG Tab PO SCH (08:13)
[2017-11-13] MEDS: Furosemide 20 MG Tab PO SCH ×2 (08:14→16:52)
[2017-11-13] MEDS: Zinc (Zinc Gluconate) 50 MG Tab PO SCH (08:14)
[2017-11-13] MEDS: Metoprolol Tartrate 50 MG Tab PO SCH ×2 (08:14→21:13)
[2017-11-13] MEDS: Iron Polysaccharides Complex 150 MG Cap PO SCH (08:14)
[2017-11-13] MEDS: Naloxegol Oxalate 25 MG Tab PO SCH (08:14)
[2017-11-13] MEDS: Docusate Sodium 100 MG Cap PO SCH (08:15)
[2017-11-13] MEDS: Losartan 25 MG Tab PO SCH (08:15)
[2017-11-13] MEDS: Insulin Detemir 100 Units/ML 3 ML Pen SUBCUT SCH (08:16)
[2017-11-13] MEDS: Omeprazole 20 MG Cap.CR PO SCH (21:12)
[2017-11-13] MEDS: Aspirin 81 MG Tab.EC PO SCH (21:12)
[2017-11-13] MEDS: Simvastatin 20 MG Tab PO SCH (21:13)
[2017-11-13] MEDS: OLANZapine 5 MG Tab PO SCH (21:13)
[2017-11-13] MEDS: oxyCODONE 5 MG Tab PO SCH (21:13)
[2017-11-13] MEDS: Sertraline 50 MG Tab PO SCH (21:13)
[2017-11-14] MEDS: Acetaminophen 500 MG Tab PO SCH ×4 (00:23→23:13)
[2017-11-14] MEDS: Zinc (Zinc Gluconate) 50 MG Tab PO SCH (08:19)
[2017-11-14] MEDS: Furosemide 20 MG Tab PO SCH ×2 (08:19→16:20)
[2017-11-14] MEDS: Losartan 25 MG Tab PO SCH (08:20)
[2017-11-14] MEDS: Allopurinol 100 MG Tab PO SCH (08:20)
[2017-11-14] MEDS: Metoprolol Tartrate 50 MG Tab PO SCH ×2 (08:20→21:26)
[2017-11-14] MEDS: Docusate Sodium 100 MG Cap PO SCH (08:21)
[2017-11-14] MEDS: Naloxegol Oxalate 25 MG Tab PO SCH (08:21)
[2017-11-14] MEDS: Multivitamins with Minerals/Iron/Folic Acid/Lycopene Tab PO SCH (08:21)
[2017-11-14] MEDS: Iron Polysaccharides Complex 150 MG Cap PO SCH (08:21)
[2017-11-14] MEDS: Insulin Detemir 100 Units/ML 3 ML Pen SUBCUT SCH (08:22)
[2017-11-14] MEDS: Ondansetron 4 MG Tab.DIS PO PRN (13:13)
[2017-11-14] MEDS: Prochlorperazine 5 MG Tab PO PRN (15:47)
[2017-11-14] MEDS: oxyCODONE 5 MG Tab PO SCH (20:16)
[2017-11-14] MEDS: Sertraline 50 MG Tab PO SCH (21:27)
[2017-11-14] MEDS: Aspirin 81 MG Tab.EC PO SCH (21:27)
[2017-11-14] MEDS: Omeprazole 20 MG Cap.CR PO SCH (21:27)
[2017-11-14] MEDS: Simvastatin 20 MG Tab PO SCH (21:28)
[2017-11-14] MEDS: OLANZapine 5 MG Tab PO SCH (21:28)
[2017-11-15] MEDS: Acetaminophen 500 MG Tab PO SCH ×2 (08:37→16:34)
[2017-11-15] MEDS: Iron Polysaccharides Complex 150 MG Cap PO SCH (08:38)
[2017-11-15] MEDS: Multivitamins with Minerals/Iron/Folic Acid/Lycopene Tab PO SCH (08:38)
[2017-11-15] MEDS: Docusate Sodium 100 MG Cap PO SCH (08:39)
[2017-11-15] MEDS: Losartan 25 MG Tab PO SCH (08:39)
[2017-11-15] MEDS: Furosemide 20 MG Tab PO SCH (08:40)
[2017-11-15] MEDS: Metoprolol Tartrate 50 MG Tab PO SCH ×2 (08:40→21:26)
[2017-11-15] MEDS: Naloxegol Oxalate 25 MG Tab PO SCH (08:41)
[2017-11-15] MEDS: Allopurinol 100 MG Tab PO SCH (08:41)
[2017-11-15] MEDS: Zinc (Zinc Gluconate) 50 MG Tab PO SCH (08:41)
[2017-11-15] MEDS: Insulin Detemir 100 Units/ML 3 ML Pen SUBCUT SCH (08:44)
[2017-11-15] MEDS: oxyCODONE 5 MG Tab PO PRN (09:14)
[2017-11-15] MEDS: Aspirin 81 MG Tab.EC PO SCH (21:25)
[2017-11-15] MEDS: Omeprazole 20 MG Cap.CR PO SCH (21:26)
[2017-11-15] MEDS: oxyCODONE 5 MG Tab PO SCH (21:27)
[2017-11-15] MEDS: Simvastatin 20 MG Tab PO SCH (21:28)
[2017-11-15] MEDS: Sertraline 50 MG Tab PO SCH (21:28)
[2017-11-16] MEDS: Acetaminophen 500 MG Tab PO SCH ×3 (00:23→16:22)
[2017-11-16] MEDS: Furosemide 20 MG Tab PO SCH ×2 (08:45→16:23)
[2017-11-16] MEDS: Iron Polysaccharides Complex 150 MG Cap PO SCH (08:45)
[2017-11-16] MEDS: Multivitamins with Minerals/Iron/Folic Acid/Lycopene Tab PO SCH (08:45)
[2017-11-16] MEDS: Allopurinol 100 MG Tab PO SCH (08:45)
[2017-11-16] MEDS: Zinc (Zinc Gluconate) 50 MG Tab PO SCH (08:45)
[2017-11-16] MEDS: Naloxegol Oxalate 25 MG Tab PO SCH (08:46)
[2017-11-16] MEDS: Losartan 25 MG Tab PO SCH (08:46)
[2017-11-16] MEDS: Metoprolol Tartrate 50 MG Tab PO SCH ×2 (08:46→21:20)
[2017-11-16] MEDS: Docusate Sodium 100 MG Cap PO SCH (08:46)
[2017-11-16] MEDS: Insulin Detemir 100 Units/ML 3 ML Pen SUBCUT SCH (08:46)
[2017-11-16] MEDS: oxyCODONE 5 MG Tab PO PRN (12:43)
[2017-11-16] MEDS: Mupirocin Oint 22 GM Tube TOP SCH (16:21)
[2017-11-16] MEDS: Sertraline 50 MG Tab PO SCH (21:19)
[2017-11-16] MEDS: Aspirin 81 MG Tab.EC PO SCH (21:19)
[2017-11-16] MEDS: Omeprazole 20 MG Cap.CR PO SCH (21:19)
[2017-11-16] MEDS: oxyCODONE 5 MG Tab PO SCH (21:20)
[2017-11-16] MEDS: Simvastatin 20 MG Tab PO SCH (21:20)
[2017-11-17] MEDS: Acetaminophen 500 MG Tab PO SCH ×3 (01:00→16:55)
[2017-11-17] MEDS: oxyCODONE 5 MG Tab PO PRN (06:32)
[2017-11-17] MEDS: Docusate Sodium 100 MG Cap PO SCH (08:14)
[2017-11-17] MEDS: Naloxegol Oxalate 25 MG Tab PO SCH (08:14)
[2017-11-17] MEDS: Mupirocin Oint 22 GM Tube TOP SCH (08:15)
[2017-11-17] MEDS: Metoprolol Tartrate 50 MG Tab PO SCH ×2 (08:15→20:32)
[2017-11-17] MEDS: Multivitamins with Minerals/Iron/Folic Acid/Lycopene Tab PO SCH (08:15)
[2017-11-17] MEDS: Furosemide 20 MG Tab PO SCH (08:15)
[2017-11-17] MEDS: Losartan 25 MG Tab PO SCH (08:16)
[2017-11-17] MEDS: Zinc (Zinc Gluconate) 50 MG Tab PO SCH (08:16)
[2017-11-17] MEDS: Iron Polysaccharides Complex 150 MG Cap PO SCH (08:16)
[2017-11-17] MEDS: Insulin Detemir 100 Units/ML 3 ML Pen SUBCUT SCH (08:16)
[2017-11-17] MEDS: Allopurinol 100 MG Tab PO SCH (08:17)
[2017-11-17] MEDS: Simvastatin 20 MG Tab PO SCH (20:32)
[2017-11-17] MEDS: Omeprazole 20 MG Cap.CR PO SCH (20:32)
[2017-11-17] MEDS: Aspirin 81 MG Tab.EC PO SCH (20:32)
[2017-11-17] MEDS: oxyCODONE 5 MG Tab PO SCH (20:32)
[2017-11-17] MEDS: Sertraline 50 MG Tab PO SCH (20:33)
[2017-11-18] MEDS: Acetaminophen 500 MG Tab PO SCH ×3 (00:26→20:48)
[2017-11-18] MEDS: oxyCODONE 5 MG Tab PO PRN ×2 (02:49→09:23)
[2017-11-18] MEDS: Mupirocin Oint 22 GM Tube TOP SCH ×2 (06:44→08:20)
[2017-11-18] MEDS: Docusate Sodium 100 MG Cap PO SCH (08:02)
[2017-11-18] MEDS: Multivitamins with Minerals/Iron/Folic Acid/Lycopene Tab PO SCH (08:02)
[2017-11-18] MEDS: Zinc (Zinc Gluconate) 50 MG Tab PO SCH (08:02)
[2017-11-18] MEDS: Naloxegol Oxalate 25 MG Tab PO SCH (08:02)
[2017-11-18] MEDS: Iron Polysaccharides Complex 150 MG Cap PO SCH (08:03)
[2017-11-18] MEDS: Metoprolol Tartrate 50 MG Tab PO SCH ×2 (08:03→20:44)
[2017-11-18] MEDS: Losartan 25 MG Tab PO SCH (08:04)
[2017-11-18] MEDS: Furosemide 20 MG Tab PO SCH ×2 (08:04→20:49)
[2017-11-18] MEDS: Allopurinol 100 MG Tab PO SCH (08:04)
[2017-11-18] MEDS: Insulin Detemir 100 Units/ML 3 ML Pen SUBCUT SCH (08:05)
[2017-11-18] MEDS: Aspirin 81 MG Tab.EC PO SCH (20:43)
[2017-11-18] MEDS: Simvastatin 20 MG Tab PO SCH (20:44)
[2017-11-18] MEDS: oxyCODONE 5 MG Tab PO SCH (20:45)
[2017-11-18] MEDS: Omeprazole 20 MG Cap.CR PO SCH (20:45)
[2017-11-18] MEDS: Sertraline 50 MG Tab PO SCH (20:46)
[2017-11-19] MEDS: Acetaminophen 500 MG Tab PO SCH ×4 (00:34→17:34)
[2017-11-19] MEDS: Allopurinol 100 MG Tab PO SCH (09:34)
[2017-11-19] MEDS: Multivitamins with Minerals/Iron/Folic Acid/Lycopene Tab PO SCH (09:35)
[2017-11-19] MEDS: Losartan 25 MG Tab PO SCH (09:35)
[2017-11-19] MEDS: Docusate Sodium 100 MG Cap PO SCH (09:35)
[2017-11-19] MEDS: Zinc (Zinc Gluconate) 50 MG Tab PO SCH (09:35)
[2017-11-19] MEDS: Naloxegol Oxalate 25 MG Tab PO SCH (09:35)
[2017-11-19] MEDS: Furosemide 20 MG Tab PO SCH (09:35)
[2017-11-19] MEDS: Metoprolol Tartrate 50 MG Tab PO SCH ×2 (09:35→21:21)
[2017-11-19] MEDS: Insulin Detemir 100 Units/ML 3 ML Pen SUBCUT SCH (09:36)
[2017-11-19] MEDS: Mupirocin Oint 22 GM Tube TOP SCH (09:36)
[2017-11-19] MEDS: Iron Polysaccharides Complex 150 MG Cap PO SCH (09:38)
[2017-11-19] MEDS: oxyCODONE 5 MG Tab PO PRN (10:35)
[2017-11-19] MEDS: Sertraline 50 MG Tab PO SCH (21:19)
[2017-11-19] MEDS: OLANZapine 5 MG Tab PO SCH (21:20)
[2017-11-19] MEDS: Aspirin 81 MG Tab.EC PO SCH (21:20)
[2017-11-19] MEDS: Simvastatin 20 MG Tab PO SCH (21:20)
[2017-11-19] MEDS: Omeprazole 20 MG Cap.CR PO SCH (21:20)
[2017-11-19] MEDS: oxyCODONE 5 MG Tab PO SCH (21:24)
[2017-11-20] MEDS: Acetaminophen 500 MG Tab PO SCH ×3 (00:53→16:42)
[2017-11-20] MEDS: oxyCODONE 5 MG Tab PO PRN (07:08)
[2017-11-20] MEDS: Mupirocin Oint 22 GM Tube TOP SCH (08:16)
[2017-11-20] MEDS: Insulin Detemir 100 Units/ML 3 ML Pen SUBCUT SCH (08:16)
[2017-11-20] MEDS: Multivitamins with Minerals/Iron/Folic Acid/Lycopene Tab PO SCH (08:18)
[2017-11-20] MEDS: Iron Polysaccharides Complex 150 MG Cap PO SCH (08:18)
[2017-11-20] MEDS: Docusate Sodium 100 MG Cap PO SCH (08:19)
[2017-11-20] MEDS: Naloxegol Oxalate 25 MG Tab PO SCH (08:19)
[2017-11-20] MEDS: Furosemide 20 MG Tab PO SCH ×2 (08:20→16:45)
[2017-11-20] MEDS: Losartan 25 MG Tab PO SCH (08:20)
[2017-11-20] MEDS: Allopurinol 100 MG Tab PO SCH (08:21)
[2017-11-20] MEDS: Metoprolol Tartrate 50 MG Tab PO SCH ×2 (08:21→21:38)
[2017-11-20] MEDS: Zinc (Zinc Gluconate) 50 MG Tab PO SCH (08:21)
[2017-11-20] MEDS: OLANZapine 5 MG Tab PO SCH (21:37)
[2017-11-20] MEDS: oxyCODONE 5 MG Tab PO SCH (21:37)
[2017-11-20] MEDS: Omeprazole 20 MG Cap.CR PO SCH (21:38)
[2017-11-20] MEDS: Simvastatin 20 MG Tab PO SCH (21:38)
[2017-11-20] MEDS: Aspirin 81 MG Tab.EC PO SCH (21:38)
[2017-11-20] MEDS: Sertraline 50 MG Tab PO SCH (21:38)
[2017-11-21] MEDS: Acetaminophen 500 MG Tab PO SCH ×3 (03:13→16:52)
[2017-11-21] MEDS: oxyCODONE 5 MG Tab PO PRN ×2 (06:16→13:55)
[2017-11-21] MEDS: Insulin Detemir 100 Units/ML 3 ML Pen SUBCUT SCH (08:00)
[2017-11-21] MEDS: Naloxegol Oxalate 25 MG Tab PO SCH (08:02)
[2017-11-21] MEDS: Mupirocin Oint 22 GM Tube TOP SCH (08:02)
[2017-11-21] MEDS: Iron Polysaccharides Complex 150 MG Cap PO SCH (08:03)
[2017-11-21] MEDS: Multivitamins with Minerals/Iron/Folic Acid/Lycopene Tab PO SCH (08:03)
[2017-11-21] MEDS: Allopurinol 100 MG Tab PO SCH (08:03)
[2017-11-21] MEDS: Zinc (Zinc Gluconate) 50 MG Tab PO SCH (08:03)
[2017-11-21] MEDS: Losartan 25 MG Tab PO SCH (08:03)
[2017-11-21] MEDS: Docusate Sodium 100 MG Cap PO SCH (08:04)
[2017-11-21] MEDS: Metoprolol Tartrate 50 MG Tab PO SCH ×2 (08:04→22:09)
[2017-11-21] MEDS: Furosemide 20 MG Tab PO SCH ×2 (08:04→16:54)
[2017-11-21] MEDS: Aspirin 81 MG Tab.EC PO SCH (22:07)
[2017-11-21] MEDS: oxyCODONE 5 MG Tab PO SCH (22:08)
[2017-11-21] MEDS: Omeprazole 20 MG Cap.CR PO SCH (22:08)
[2017-11-21] MEDS: Simvastatin 20 MG Tab PO SCH (22:08)
[2017-11-21] MEDS: OLANZapine 5 MG Tab PO SCH (22:08)
[2017-11-21] MEDS: Sertraline 50 MG Tab PO SCH (22:08)
[2017-11-22] MEDS: Acetaminophen 500 MG Tab PO SCH ×4 (01:08→23:00)
[2017-11-22] MEDS: Docusate Sodium 100 MG Cap PO SCH (08:56)
[2017-11-22] MEDS: Allopurinol 100 MG Tab PO SCH (08:56)
[2017-11-22] MEDS: Zinc (Zinc Gluconate) 50 MG Tab PO SCH (08:56)
[2017-11-22] MEDS: Naloxegol Oxalate 25 MG Tab PO SCH (08:57)
[2017-11-22] MEDS: Multivitamins with Minerals/Iron/Folic Acid/Lycopene Tab PO SCH (08:57)
[2017-11-22] MEDS: Furosemide 20 MG Tab PO SCH (08:57)
[2017-11-22] MEDS: Insulin Detemir 100 Units/ML 3 ML Pen SUBCUT SCH (08:57)
[2017-11-22] MEDS: Iron Polysaccharides Complex 150 MG Cap PO SCH (08:57)
[2017-11-22] MEDS: Losartan 25 MG Tab PO SCH (08:59)
[2017-11-22] MEDS: Metoprolol Tartrate 50 MG Tab PO SCH ×2 (08:59→21:37)
[2017-11-22] MEDS: Mupirocin Oint 22 GM Tube TOP SCH (10:12)
[2017-11-22 10:34] LABS: ANION GAP 13.6 mmol/L (5-15)
--- NOTE | 2017-11-22 11:28 | PN ---
11/22/2017 PATIENT NAME: ZEYNEP MCGEE SUBJECTIVE: This is a 76-year-old female patient with a history of peritoneal carcinomatosis. The patient was started on chemotherapy and after her first day of chemotherapy, she fell backwards down 2 stairs and fractured her left humeral head. The patient ended up having a PleurX catheter placed in her abdomen to drain malignant ascites. The patient states today she feels little short of breath. She says with any activity, even just walking, she feels short of breath. She denies any fever or chills. She says the open wound to her coccyx still is really painful. She had seen Dr. Collier about a week and a half ago. He can continue the same regimen every 3 weeks she gets for her chemotherapy medications. OBJECTIVE: VITAL SIGNS: Today, temperature is 99.4, pulse is 86, blood pressure is 108/60, respiratory rate is 16, oxygen saturations on room air is 95%. GENERAL: This is an elderly white female, obese with alopecia. She has no hair. She does have a dressing with peritoneal PleurX drain catheter to her abdomen. LUNGS: Sounds are clear throughout lung penny. HEART: Tones are regular rate and rhythm. ABDOMEN: Obese with catheter in place. Dressing dry and intact. EXTREMITIES: Mild pedal edema noted on exam. LABORATORY DATA: The patient has not had her lab work drawn today. I did order some lab, but it has not been drawn yet at this time. IMPRESSION AND PLAN: 1. Peritoneal carcinomatosis. Plan: The patient was in [place] to see Dr. Collier about a week and half ago. He can continue with a 3-week protocol of carboplatin and Taxol. I will call Dr. Collier for update today. 2. Left humeral head fracture. Plan: The patient had seen Dr. Singer in Orthopedics last Wednesday. Repeat x-rays were obtained. Dr. Singer is going to hold off on surgery. She is not a surgical candidate at this time. 3. Stage III pressure ulcer to coccyx. Plan: I did put a consult in for General Surgery for Dr. Dixon, he is here in [place] tomorrow for debridement of this wound. On 11/16/2017, there was a culture obtained which grew E coli. On exam today, there is purulent drainage from the wound, and the wound has a very foul smell to it. Hopefully, Dr. Dixon will be able to debride it tomorrow. 4. Shortness of breath with activity. Plan: I am going to obtain a chest x- ray today along with a CBC and a CMP to assess the patient's hemoglobin, it was low, last time was checked at 8.0, and also chest x-ray to assess her lungs. Lungs sounds were clear throughout lung penny. 5. History of gout. Plan: Continue with allopurinol 100 mg daily. 6. Hypertension with coronary artery disease. Plan: Continue with baby aspirin 81 mg daily along with Lasix as ordered. Also continue with losartan 25 mg daily and metoprolol tartrate 50 mg twice a day. 7. Chronic constipation. Plan: Continue with Colace, senna, and Movantik as ordered. 8. Diabetes mellitus type 2. Plan: Continue with blood sugar checks along with Levemir 40 units subcutaneously daily. The patient's blood sugars have been running within acceptable range at this time. 9. History of anemia. Plan: We will continue with Niferex 150 mg daily. I am going to obtain a CBC today to check for patient's hemoglobin. I am suspecting it might be low. Last check was 8.0. If it is below 8, I am going to transfuse the patient with some packed RBCs today. 10.Yeast dermatitis to abdomen folds under her breasts. Plan: Continue with nystatin ointment as needed for rash. 11.Sleep disorder. Plan: Continue with Zyprexa for 4 days as ordered after chemotherapy. 12.Gastroesophageal reflux disease. Continue with omeprazole 20 mg in the morning. 13.Pain. Plan: Continue with oxycodone 5 mg at bedtime and also as needed for pain. 14.History of depression. Plan: We will continue with Zoloft 100 mg at bedtime. I am going to add some Wellbutrin 150 mg daily because the patient has been very weepy and depressed of late. 15.History of hyperlipidemia. Plan: Continue with Zocor 40 mg daily. 16.Followup on urinary tract infection. The patient had an urinary tract infection about a week ago. She was treated. I am going to repeat the urinalysis today to see if it is resolved. 17.Hypoalbuminemia. Plan: The patient's albumin was low at her last check at 1.85. CMP today shows it at 1.65, will give 100 ml of Albumin 25% today. 18. Anemia. Plan: Samantha's hgb is 7.0 today , will transfuse 1 unit of PRBCs. Repeat CBC in AM. /[id number]/MODL MTDD
[2017-11-22] MEDS ORDERED: Albumin 25% 100 ML IV ONE (12:00)
[2017-11-22] MEDS ORDERED: Sodium Chloride 0.9% 250 ML IV SCH (12:00)
[2017-11-22] MEDS ORDERED: Sodium Chloride 0.9% 100 ML IV SCH (12:20)
[2017-11-22] MEDS: buPROPion 150 MG Tab.ER PO SCH (13:15)
[2017-11-22] MEDS: Ciprofloxacin in D5W 200 ML IV SCH (20:00)
[2017-11-22] MEDS ORDERED: Sodium Chloride 0.9% 100 ML ONE (20:03)
[2017-11-22] MEDS: Aspirin 81 MG Tab.EC PO SCH (21:36)
[2017-11-22] MEDS: oxyCODONE 5 MG Tab PO SCH (21:38)
[2017-11-22] MEDS: Omeprazole 20 MG Cap.CR PO SCH (21:38)
[2017-11-22] MEDS: Sertraline 50 MG Tab PO SCH (21:40)
[2017-11-22] MEDS: Simvastatin 20 MG Tab PO SCH (21:40)
[2017-11-22] MEDS: OLANZapine 5 MG Tab PO SCH (21:41)
[2017-11-23] MEDS: Acetaminophen 500 MG Tab PO SCH ×3 (06:00→23:24)
[2017-11-23] MEDS: Ciprofloxacin in D5W 200 ML IV SCH ×2 (06:08→18:36)
[2017-11-23] MEDS: Metoprolol Tartrate 50 MG Tab PO SCH ×3 (06:39→21:17)
[2017-11-23] MEDS: Losartan 25 MG Tab PO SCH ×2 (06:39→09:26)
[2017-11-23] MEDS: Furosemide 20 MG Tab PO SCH ×3 (06:39→17:04)
[2017-11-23] MEDS: Allopurinol 100 MG Tab PO SCH ×2 (06:39→09:26)
[2017-11-23] MEDS: buPROPion 150 MG Tab.ER PO SCH ×2 (06:40→09:26)
[2017-11-23] MEDS: Insulin Detemir 100 Units/ML 3 ML Pen SUBCUT SCH ×2 (06:48→09:26)
[2017-11-23] MEDS: Mupirocin Oint 22 GM Tube TOP SCH (10:28)
[2017-11-23] MEDS: Zinc (Zinc Gluconate) 50 MG Tab PO SCH (12:46)
[2017-11-23] MEDS: Multivitamins with Minerals/Iron/Folic Acid/Lycopene Tab PO SCH (12:47)
[2017-11-23] MEDS: Iron Polysaccharides Complex 150 MG Cap PO SCH (12:47)
[2017-11-23] MEDS: Docusate Sodium 100 MG Cap PO SCH (12:47)
[2017-11-23] MEDS: Naloxegol Oxalate 25 MG Tab PO SCH (12:47)
[2017-11-23] MEDS: oxyCODONE 5 MG Tab PO PRN (13:45)
[2017-11-23] MEDS ORDERED: oxyCODONE 5 MG Tab PO ONE (18:11)
[2017-11-23] MEDS: Omeprazole 20 MG Cap.CR PO SCH (21:15)
[2017-11-23] MEDS: Aspirin 81 MG Tab.EC PO SCH (21:15)
[2017-11-23] MEDS: Simvastatin 20 MG Tab PO SCH (21:17)
[2017-11-23] MEDS: Sertraline 50 MG Tab PO SCH (21:17)
[2017-11-23] MEDS: oxyCODONE 5 MG Tab PO SCH (21:19)
[2017-11-24] MEDS: oxyCODONE 5 MG Tab PO PRN ×2 (06:24→13:27)
[2017-11-24] MEDS: Acetaminophen 500 MG Tab PO SCH ×2 (06:25→14:31)
[2017-11-24] MEDS: Ciprofloxacin in D5W 200 ML IV SCH ×2 (06:30→18:23)
[2017-11-24] MEDS: Docusate Sodium 100 MG Cap PO SCH (08:03)
[2017-11-24] MEDS: Furosemide 20 MG Tab PO SCH (08:03)
[2017-11-24] MEDS: Iron Polysaccharides Complex 150 MG Cap PO SCH (08:03)
[2017-11-24] MEDS: Naloxegol Oxalate 25 MG Tab PO SCH (08:04)
[2017-11-24] MEDS: Zinc (Zinc Gluconate) 50 MG Tab PO SCH (08:04)
[2017-11-24] MEDS: Multivitamins with Minerals/Iron/Folic Acid/Lycopene Tab PO SCH (08:04)
[2017-11-24] MEDS: Allopurinol 100 MG Tab PO SCH (08:04)
[2017-11-24] MEDS: buPROPion 150 MG Tab.ER PO SCH (08:04)
[2017-11-24] MEDS: Losartan 25 MG Tab PO SCH (08:05)
[2017-11-24] MEDS: Metoprolol Tartrate 50 MG Tab PO SCH ×2 (08:05→20:02)
[2017-11-24] MEDS: Mupirocin Oint 22 GM Tube TOP SCH (08:06)
[2017-11-24] MEDS: Insulin Detemir 100 Units/ML 3 ML Pen SUBCUT SCH (08:11)
[2017-11-24] MEDS: Sodium Chloride 0.9% 100 ML IV SCH (18:30)
[2017-11-24] MEDS ORDERED: Sodium Chloride 0.9% 100 ML IV SCH (19:00)
[2017-11-24] MEDS: oxyCODONE 5 MG Tab PO SCH (20:01)
[2017-11-24] MEDS: Simvastatin 20 MG Tab PO SCH (20:02)
[2017-11-24] MEDS: Omeprazole 20 MG Cap.CR PO SCH (20:02)
[2017-11-24] MEDS: Sertraline 50 MG Tab PO SCH (20:03)
[2017-11-24] MEDS: Aspirin 81 MG Tab.EC PO SCH (20:03)
[2017-11-25] MEDS: Acetaminophen 500 MG Tab PO SCH ×4 (00:01→23:43)
[2017-11-25] MEDS: Ciprofloxacin in D5W 200 ML IV SCH ×2 (06:27→18:08)
[2017-11-25] MEDS: oxyCODONE 5 MG Tab PO PRN (08:16)
[2017-11-25] MEDS: Insulin Detemir 100 Units/ML 3 ML Pen SUBCUT SCH (08:17)
[2017-11-25] MEDS: Zinc (Zinc Gluconate) 50 MG Tab PO SCH (08:18)
[2017-11-25] MEDS: Iron Polysaccharides Complex 150 MG Cap PO SCH (08:18)
[2017-11-25] MEDS: Allopurinol 100 MG Tab PO SCH (08:18)
[2017-11-25] MEDS: Naloxegol Oxalate 25 MG Tab PO SCH (08:18)
[2017-11-25] MEDS: buPROPion 150 MG Tab.ER PO SCH (08:19)
[2017-11-25] MEDS: Multivitamins with Minerals/Iron/Folic Acid/Lycopene Tab PO SCH (08:19)
[2017-11-25] MEDS: Furosemide 20 MG Tab PO SCH ×2 (08:19→17:50)
[2017-11-25] MEDS: Docusate Sodium 100 MG Cap PO SCH (08:19)
[2017-11-25] MEDS: Metoprolol Tartrate 50 MG Tab PO SCH ×2 (08:19→20:09)
[2017-11-25] MEDS: Losartan 25 MG Tab PO SCH (08:19)
[2017-11-25] MEDS: Mupirocin Oint 22 GM Tube TOP SCH (08:20)
[2017-11-25] MEDS: Sodium Chloride 0.9% 100 ML IV SCH (18:08)
[2017-11-25] MEDS: Omeprazole 20 MG Cap.CR PO SCH (20:10)
[2017-11-25] MEDS: Simvastatin 20 MG Tab PO SCH (20:10)
[2017-11-25] MEDS: Aspirin 81 MG Tab.EC PO SCH (20:10)
[2017-11-25] MEDS: oxyCODONE 5 MG Tab PO SCH (20:10)
[2017-11-25] MEDS: Sertraline 50 MG Tab PO SCH (20:11)
[2017-11-26] MEDS: Acetaminophen 500 MG Tab PO SCH ×3 (06:13→23:13)
[2017-11-26] MEDS: Ciprofloxacin in D5W 200 ML IV SCH (06:13)
[2017-11-26] MEDS: oxyCODONE 5 MG Tab PO PRN (07:42)
[2017-11-26] MEDS: buPROPion 150 MG Tab.ER PO SCH (08:09)
[2017-11-26] MEDS: Docusate Sodium 100 MG Cap PO SCH (08:09)
[2017-11-26] MEDS: Allopurinol 100 MG Tab PO SCH (08:09)
[2017-11-26] MEDS: Zinc (Zinc Gluconate) 50 MG Tab PO SCH (08:09)
[2017-11-26] MEDS: Multivitamins with Minerals/Iron/Folic Acid/Lycopene Tab PO SCH (08:10)
[2017-11-26] MEDS: Iron Polysaccharides Complex 150 MG Cap PO SCH (08:10)
[2017-11-26] MEDS: Naloxegol Oxalate 25 MG Tab PO SCH (08:10)
[2017-11-26] MEDS: Metoprolol Tartrate 50 MG Tab PO SCH ×2 (08:10→20:42)
[2017-11-26] MEDS: Losartan 25 MG Tab PO SCH (08:10)
[2017-11-26] MEDS: Insulin Detemir 100 Units/ML 3 ML Pen SUBCUT SCH (08:10)
[2017-11-26] MEDS: Furosemide 20 MG Tab PO SCH (08:10)
[2017-11-26] MEDS: Mupirocin Oint 22 GM Tube TOP SCH (08:11)
--- NOTE | 2017-11-26 14:38 | OR ---
DATE OF SURGERY: 11/23/2017 PREOPERATIVE DIAGNOSIS: Chronic sacral ulcer. POSTOPERATIVE DIAGNOSIS: Chronic sacral ulcer. PROCEDURE: Debridemnt of chronic sacral ulcer. This 76-year-old female who has known metastatic cancer, is hospitalized with a fractured arm from a fall. She has been undergoing chemotherapy and is noted to have a very low white blood cell count as well as platelet count with her platelet count this morning being 23,000. This patient has a chronic sacral ulcer, which she says that she has had for many years. It is noted that it has become a little more foul smelling and has necrotic tissue in its base and consultation is requested today for evaluation and possible debridement. Examination of the ulceration shows it to be irregular in shape, approximately 4 x 4 cm in size in the midline over the sacrum. The base of the wound has extensive necrotic tissue in it and I advised sharp debridement, which was agreed upon by the patient. This was carried out today with the entire depth of the wound being sharply debrided and a relatively large amount of necrotic tissue being removed down to what appeared to be viable tissue with some superficial necrotic tissue. Aggressive debridement is somewhat limited because of her low platelet count in order to avoid hemorrhage. The procedure was tolerated well by the patient. Some of the debridement is sent off for culture at the request of her primary care physician. We will institute saline wet-to- dry dressings to try and debride the remaining superficial necrotic tissue. /[id number]/MODL
[2017-11-26] MEDS: oxyCODONE 5 MG Tab PO SCH (20:40)
[2017-11-26] MEDS: Aspirin 81 MG Tab.EC PO SCH (20:41)
[2017-11-26] MEDS: Omeprazole 20 MG Cap.CR PO SCH (20:42)
[2017-11-26] MEDS: Simvastatin 20 MG Tab PO SCH (20:43)
[2017-11-26] MEDS: Sertraline 50 MG Tab PO SCH (20:43)
--- NOTE | 2017-11-26 21:09 | PN ---
11/26/2017 PATIENT NAME: ZEYNEP MCGEE CHIEF COMPLAINT: Low platelets today, 15,000. HISTORY: 76-year-old female with history of peritoneal carcinomatosis, started on chemotherapy. She is eight days postchemotherapy with carboplatin along with Taxol. She is being followed closely by measurement supervisor/oncologist, Dr. Collier. She continues in swing bed therapy for fracture of her left humeral head of her arm where she will eventually begin more rehabilitation on that. She has been consulted with Orthopedics, although the patient is in rehabilitative status. She has had ongoing complication, is requiring blood transfusions. She recently underwent a surgical sharp debridement by Dr. Dixon of her significant sacral ulcer that she has had for quite some time along with paracentesis of malignant ascites. 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 Again, undergoing treatment for this. OBJECTIVE: VITAL SIGNS: Today, blood pressure 144/68, heart rate 70, weight 224, respiratory rate 18, O2 sats 93% on room air. LUNGS: Clear to auscultation. CV: Regular rate and rhythm. ABDOMEN: The patient does have normal bowel tones today. HEENT: She has pallor, however, no petechiae, no bleeding gums. She does have a bruise around her IV site, however, no active bleeding despite low platelets. LABORATORY DATA: White count 2.5, hemoglobin 7.4, hematocrit 22.9, MCV high at 93, platelet count 15,000, neutrophilia percent 57. Glucose 144. PRIMARY IMPRESSION: 1. Anemia, significant. 2. Thrombocytopenia, peritoneal carcinomatosis. 3. Left humeral fracture. 4. Stage III pressure ulcer to coccyx. 5. Type 2 diabetes mellitus. 6. History of gout. 7. Hypertension. 8. Yeast dermatitis. 9. Sleep disorder. 10.Gastroesophageal reflux disease. 11.Depression. 12.Hyperlipidemia. 13.Recent urinary tract infection. 14.Hypoalbuminemia and malnutrition. PLAN: Consult with Dr. Collier regarding low platelets. We will forego FFP at this time. He does recommend closely monitoring for any signs and symptoms of bleeding. We will repeat labs on Wednesday. Discontinue ciprofloxacin. Nystatin ointment as needed to intertrigo folds and breast. The patient will follow up with Oncology/Hematology next week. /[id number]/MODL
[2017-11-27] MEDS: Acetaminophen 500 MG Tab PO SCH ×4 (06:45→23:07)
[2017-11-27] MEDS: Mupirocin Oint 22 GM Tube TOP SCH (09:04)
[2017-11-27] MEDS: Docusate Sodium 100 MG Cap PO SCH (09:04)
[2017-11-27] MEDS: Multivitamins with Minerals/Iron/Folic Acid/Lycopene Tab PO SCH (09:04)
[2017-11-27] MEDS: Insulin Detemir 100 Units/ML 3 ML Pen SUBCUT SCH (09:05)
[2017-11-27] MEDS: Iron Polysaccharides Complex 150 MG Cap PO SCH (09:05)
[2017-11-27] MEDS: Furosemide 20 MG Tab PO SCH ×2 (09:05→16:26)
[2017-11-27] MEDS: Losartan 25 MG Tab PO SCH (09:05)
[2017-11-27] MEDS: Metoprolol Tartrate 50 MG Tab PO SCH ×2 (09:06→20:29)
[2017-11-27] MEDS: Allopurinol 100 MG Tab PO SCH (09:07)
[2017-11-27] MEDS: buPROPion 150 MG Tab.ER PO SCH (09:07)
[2017-11-27] MEDS: Naloxegol Oxalate 25 MG Tab PO SCH (09:07)
[2017-11-27] MEDS: Zinc (Zinc Gluconate) 50 MG Tab PO SCH (09:07)
[2017-11-27] MEDS: oxyCODONE 5 MG Tab PO PRN ×2 (16:29→23:08)
[2017-11-27] MEDS: Sertraline 50 MG Tab PO SCH (20:28)
[2017-11-27] MEDS: oxyCODONE 5 MG Tab PO SCH (20:28)
[2017-11-27] MEDS: Omeprazole 20 MG Cap.CR PO SCH (20:29)
[2017-11-27] MEDS: Simvastatin 20 MG Tab PO SCH (20:29)
[2017-11-27] MEDS: Aspirin 81 MG Tab.EC PO SCH (20:29)
[2017-11-28] MEDS: Acetaminophen 500 MG Tab PO SCH ×3 (06:25→23:26)
[2017-11-28] MEDS: Docusate Sodium 100 MG Cap PO SCH (08:50)
[2017-11-28] MEDS: buPROPion 150 MG Tab.ER PO SCH (08:50)
[2017-11-28] MEDS: Metoprolol Tartrate 50 MG Tab PO SCH ×2 (08:50→20:32)
[2017-11-28] MEDS: Multivitamins with Minerals/Iron/Folic Acid/Lycopene Tab PO SCH (08:50)
[2017-11-28] MEDS: Zinc (Zinc Gluconate) 50 MG Tab PO SCH (08:51)
[2017-11-28] MEDS: Iron Polysaccharides Complex 150 MG Cap PO SCH (08:51)
[2017-11-28] MEDS: Losartan 50 MG Tab PO SCH (08:51)
[2017-11-28] MEDS: Allopurinol 100 MG Tab PO SCH (08:51)
[2017-11-28] MEDS: Naloxegol Oxalate 25 MG Tab PO SCH (08:51)
[2017-11-28] MEDS: Furosemide 20 MG Tab PO SCH ×2 (08:51→17:09)
[2017-11-28] MEDS: Insulin Detemir 100 Units/ML 3 ML Pen SUBCUT SCH (08:52)
[2017-11-28] MEDS: oxyCODONE 5 MG Tab PO PRN (08:56)
[2017-11-28] MEDS: Mupirocin Oint 22 GM Tube TOP SCH (09:02)
[2017-11-28] MEDS: oxyCODONE 5 MG Tab PO SCH (20:30)
[2017-11-28] MEDS: Aspirin 81 MG Tab.EC PO SCH (20:31)
[2017-11-28] MEDS: Omeprazole 20 MG Cap.CR PO SCH (20:32)
[2017-11-28] MEDS: Simvastatin 20 MG Tab PO SCH (20:33)
[2017-11-28] MEDS: Sertraline 50 MG Tab PO SCH (20:33)
[2017-11-29] MEDS: Acetaminophen 500 MG Tab PO SCH ×2 (06:48→14:08)
[2017-11-29 08:07] LABS: ANION GAP 9.1 mmol/L (5-15)
[2017-11-29] MEDS: Furosemide 20 MG Tab PO SCH (08:11)
[2017-11-29] MEDS: buPROPion 150 MG Tab.ER PO SCH (08:11)
[2017-11-29] MEDS: Multivitamins with Minerals/Iron/Folic Acid/Lycopene Tab PO SCH (08:11)
[2017-11-29] MEDS: Iron Polysaccharides Complex 150 MG Cap PO SCH (08:11)
[2017-11-29] MEDS: Docusate Sodium 100 MG Cap PO SCH (08:11)
[2017-11-29] MEDS: Zinc (Zinc Gluconate) 50 MG Tab PO SCH (08:11)
[2017-11-29] MEDS: Naloxegol Oxalate 25 MG Tab PO SCH (08:11)
[2017-11-29] MEDS: Allopurinol 100 MG Tab PO SCH (08:11)
[2017-11-29] MEDS: Metoprolol Tartrate 50 MG Tab PO SCH ×2 (08:13→21:58)
[2017-11-29] MEDS: Losartan 50 MG Tab PO SCH (08:16)
[2017-11-29] MEDS: Mupirocin Oint 22 GM Tube TOP SCH (09:30)
[2017-11-29] MEDS: Insulin Detemir 100 Units/ML 3 ML Pen SUBCUT SCH ×2 (11:10→11:32)
[2017-11-29] MEDS: oxyCODONE 5 MG Tab PO PRN (14:08)
[2017-11-29] MEDS: Loperamide 2 MG Cap PO PRN (18:22)
[2017-11-29] MEDS: Omeprazole 20 MG Cap.CR PO SCH (21:57)
[2017-11-29] MEDS: oxyCODONE 5 MG Tab PO SCH (21:57)
[2017-11-29] MEDS: Aspirin 81 MG Tab.EC PO SCH (21:58)
[2017-11-29] MEDS: Sertraline 50 MG Tab PO SCH (21:58)
[2017-11-29] MEDS: Simvastatin 20 MG Tab PO SCH (21:58)
[2017-11-30] MEDS: Acetaminophen 500 MG Tab PO SCH ×3 (00:59→16:00)
[2017-11-30] MEDS: oxyCODONE 5 MG Tab PO PRN (04:43)
[2017-11-30] MEDS: Loperamide 2 MG Cap PO PRN ×2 (04:43→05:53)
[2017-11-30] MEDS: Losartan 50 MG Tab PO SCH (08:41)
[2017-11-30] MEDS: Docusate Sodium 100 MG Cap PO SCH (08:41)
[2017-11-30] MEDS: Multivitamins with Minerals/Iron/Folic Acid/Lycopene Tab PO SCH (08:41)
[2017-11-30] MEDS: Iron Polysaccharides Complex 150 MG Cap PO SCH (08:42)
[2017-11-30] MEDS: Insulin Detemir 100 Units/ML 3 ML Pen SUBCUT SCH (08:43)
[2017-11-30] MEDS: Furosemide 20 MG Tab PO SCH ×2 (08:43→16:03)
[2017-11-30] MEDS: Naloxegol Oxalate 25 MG Tab PO SCH (08:44)
[2017-11-30] MEDS: Metoprolol Tartrate 50 MG Tab PO SCH ×2 (08:44→21:14)
[2017-11-30] MEDS: Zinc (Zinc Gluconate) 50 MG Tab PO SCH (08:45)
[2017-11-30] MEDS: buPROPion 150 MG Tab.ER PO SCH (08:45)
[2017-11-30] MEDS: Allopurinol 100 MG Tab PO SCH (08:46)
[2017-11-30] MEDS: Mupirocin Oint 22 GM Tube TOP SCH (08:47)
[2017-11-30] MEDS: oxyCODONE 5 MG Tab PO SCH (21:10)
[2017-11-30] MEDS: Sertraline 50 MG Tab PO SCH (21:11)
[2017-11-30] MEDS: Omeprazole 20 MG Cap.CR PO SCH (21:12)
[2017-11-30] MEDS: Aspirin 81 MG Tab.EC PO SCH (21:12)
[2017-11-30] MEDS: Simvastatin 20 MG Tab PO SCH (21:12)
[2017-12-01] MEDS: Acetaminophen 500 MG Tab PO SCH ×3 (01:39→17:14)
[2017-12-01 07:46] LABS: ANION GAP 21.6 mmol/L (5-15)
[2017-12-01] MEDS: oxyCODONE 5 MG Tab PO PRN ×2 (07:48→17:12)
[2017-12-01] MEDS: Mupirocin Oint 22 GM Tube TOP SCH (08:47)
[2017-12-01] MEDS: Multivitamins with Minerals/Iron/Folic Acid/Lycopene Tab PO SCH (08:49)
[2017-12-01] MEDS: Docusate Sodium 100 MG Cap PO SCH (08:50)
[2017-12-01] MEDS: Iron Polysaccharides Complex 150 MG Cap PO SCH (08:50)
[2017-12-01] MEDS: Losartan 50 MG Tab PO SCH (08:50)
[2017-12-01] MEDS: Metoprolol Tartrate 50 MG Tab PO SCH ×2 (08:51→20:08)
[2017-12-01] MEDS: Furosemide 20 MG Tab PO SCH (08:51)
[2017-12-01] MEDS: Allopurinol 100 MG Tab PO SCH (08:52)
[2017-12-01] MEDS: Naloxegol Oxalate 25 MG Tab PO SCH (08:52)
[2017-12-01] MEDS: buPROPion 150 MG Tab.ER PO SCH (08:52)
[2017-12-01] MEDS: Zinc (Zinc Gluconate) 50 MG Tab PO SCH (08:52)
[2017-12-01] MEDS: Insulin Detemir 100 Units/ML 3 ML Pen SUBCUT SCH (08:54)
[2017-12-01] MEDS: Ondansetron 4 MG Tab.DIS PO PRN (16:51)
[2017-12-01] MEDS: Simvastatin 20 MG Tab PO SCH (20:06)
[2017-12-01] MEDS: Aspirin 81 MG Tab.EC PO SCH (20:06)
[2017-12-01] MEDS: Omeprazole 20 MG Cap.CR PO SCH (20:07)
[2017-12-01] MEDS: Sertraline 50 MG Tab PO SCH (20:07)
[2017-12-01] MEDS: oxyCODONE 5 MG Tab PO SCH (20:10)
[2017-12-02] MEDS: Acetaminophen 500 MG Tab PO SCH ×3 (00:58→14:35)
[2017-12-02] MEDS: Mupirocin Oint 22 GM Tube TOP SCH (08:27)
[2017-12-02] MEDS: Zinc (Zinc Gluconate) 50 MG Tab PO SCH (08:28)
[2017-12-02] MEDS: Naloxegol Oxalate 25 MG Tab PO SCH (08:28)
[2017-12-02] MEDS: Iron Polysaccharides Complex 150 MG Cap PO SCH (08:29)
[2017-12-02] MEDS: Docusate Sodium 100 MG Cap PO SCH (08:29)
[2017-12-02] MEDS: Furosemide 20 MG Tab PO SCH ×2 (08:29→17:20)
[2017-12-02] MEDS: Metoprolol Tartrate 50 MG Tab PO SCH ×2 (08:29→21:38)
[2017-12-02] MEDS: Allopurinol 100 MG Tab PO SCH (08:29)
[2017-12-02] MEDS: Multivitamins with Minerals/Iron/Folic Acid/Lycopene Tab PO SCH (08:29)
[2017-12-02] MEDS: Losartan 50 MG Tab PO SCH (08:29)
[2017-12-02] MEDS: buPROPion 150 MG Tab.ER PO SCH (08:29)
[2017-12-02] MEDS: oxyCODONE 5 MG Tab PO PRN ×2 (08:39→16:50)
[2017-12-02] MEDS: Insulin Detemir 100 Units/ML 3 ML Pen SUBCUT SCH ×2 (10:11→10:14)
[2017-12-02] MEDS: Simvastatin 20 MG Tab PO SCH (21:38)
[2017-12-02] MEDS: Aspirin 81 MG Tab.EC PO SCH (21:38)
[2017-12-02] MEDS: Omeprazole 20 MG Cap.CR PO SCH (21:38)
[2017-12-02] MEDS: Sertraline 50 MG Tab PO SCH (21:38)
[2017-12-02] MEDS: oxyCODONE 5 MG Tab PO SCH (21:41)
[2017-12-03] MEDS: Acetaminophen 500 MG Tab PO SCH ×3 (00:57→14:05)
[2017-12-03] MEDS: oxyCODONE 5 MG Tab PO PRN ×2 (00:57→14:05)
[2017-12-03] MEDS: Mupirocin Oint 22 GM Tube TOP SCH (09:12)
[2017-12-03] MEDS: Allopurinol 100 MG Tab PO SCH (09:13)
[2017-12-03] MEDS: Docusate Sodium 100 MG Cap PO SCH (09:13)
[2017-12-03] MEDS: Multivitamins with Minerals/Iron/Folic Acid/Lycopene Tab PO SCH (09:13)
[2017-12-03] MEDS: Zinc (Zinc Gluconate) 50 MG Tab PO SCH (09:14)
[2017-12-03] MEDS: Naloxegol Oxalate 25 MG Tab PO SCH (09:14)
[2017-12-03] MEDS: Iron Polysaccharides Complex 150 MG Cap PO SCH (09:14)
[2017-12-03] MEDS: buPROPion 150 MG Tab.ER PO SCH (09:15)
[2017-12-03] MEDS: Metoprolol Tartrate 50 MG Tab PO SCH ×2 (09:15→20:34)
[2017-12-03] MEDS: Furosemide 20 MG Tab PO SCH (09:15)
[2017-12-03] MEDS: Losartan 50 MG Tab PO SCH (09:16)
[2017-12-03] MEDS: Insulin Detemir 100 Units/ML 3 ML Pen SUBCUT SCH (09:17)
[2017-12-03] MEDS: Ondansetron 4 MG Tab.DIS PO PRN (14:59)
[2017-12-03] MEDS: Omeprazole 20 MG Cap.CR PO SCH (20:34)
[2017-12-03] MEDS: oxyCODONE 5 MG Tab PO SCH (20:34)
[2017-12-03] MEDS: Sertraline 50 MG Tab PO SCH (20:34)
[2017-12-03] MEDS: Simvastatin 20 MG Tab PO SCH (20:34)
[2017-12-03] MEDS: Aspirin 81 MG Tab.EC PO SCH (20:34)
[2017-12-04] MEDS: Acetaminophen 500 MG Tab PO SCH ×4 (00:23→22:29)
[2017-12-04] MEDS: Ondansetron 4 MG Tab.DIS PO PRN (02:20)
[2017-12-04] MEDS: oxyCODONE 5 MG Tab PO PRN ×3 (02:21→18:54)
[2017-12-04] MEDS: Prochlorperazine 5 MG Tab PO PRN (05:59)
[2017-12-04] MEDS: Mupirocin Oint 22 GM Tube TOP SCH (08:38)
[2017-12-04] MEDS: Polyethylene Glycol 3350 Powder 17 GM Packet PO PRN (08:41)
[2017-12-04] MEDS: buPROPion 150 MG Tab.ER PO SCH (08:43)
[2017-12-04] MEDS: Naloxegol Oxalate 25 MG Tab PO SCH (08:43)
[2017-12-04] MEDS: Docusate Sodium 100 MG Cap PO SCH (08:43)
[2017-12-04] MEDS: Iron Polysaccharides Complex 150 MG Cap PO SCH (08:43)
[2017-12-04] MEDS: Losartan 50 MG Tab PO SCH (08:44)
[2017-12-04] MEDS: Multivitamins with Minerals/Iron/Folic Acid/Lycopene Tab PO SCH (08:44)
[2017-12-04] MEDS: Zinc (Zinc Gluconate) 50 MG Tab PO SCH (08:44)
[2017-12-04] MEDS: Metoprolol Tartrate 50 MG Tab PO SCH ×2 (08:45→20:44)
[2017-12-04] MEDS: Allopurinol 100 MG Tab PO SCH (08:45)
[2017-12-04] MEDS: Furosemide 20 MG Tab PO SCH ×2 (08:46→16:08)
[2017-12-04] MEDS: Insulin Detemir 100 Units/ML 3 ML Pen SUBCUT SCH (08:46)
[2017-12-04] MEDS: Sertraline 50 MG Tab PO SCH (20:44)
[2017-12-04] MEDS: Simvastatin 20 MG Tab PO SCH (20:44)
[2017-12-04] MEDS: Aspirin 81 MG Tab.EC PO SCH (20:44)
[2017-12-04] MEDS: Omeprazole 20 MG Cap.CR PO SCH (20:44)
[2017-12-04] MEDS: oxyCODONE 5 MG Tab PO SCH (20:45)
[2017-12-05] MEDS: Acetaminophen 500 MG Tab PO SCH ×2 (06:33→14:44)
[2017-12-05] MEDS: oxyCODONE 5 MG Tab PO PRN ×2 (07:26→17:40)
[2017-12-05] MEDS: Insulin Detemir 100 Units/ML 3 ML Pen SUBCUT SCH (08:21)
[2017-12-05] MEDS: Furosemide 20 MG Tab PO SCH ×2 (08:23→16:10)
[2017-12-05] MEDS: Multivitamins with Minerals/Iron/Folic Acid/Lycopene Tab PO SCH (08:24)
[2017-12-05] MEDS: Allopurinol 100 MG Tab PO SCH (08:24)
[2017-12-05] MEDS: Metoprolol Tartrate 50 MG Tab PO SCH ×2 (08:24→20:44)
[2017-12-05] MEDS: buPROPion 150 MG Tab.ER PO SCH (08:24)
[2017-12-05] MEDS: Docusate Sodium 100 MG Cap PO SCH (08:24)
[2017-12-05] MEDS: Iron Polysaccharides Complex 150 MG Cap PO SCH (08:25)
[2017-12-05] MEDS: Losartan 50 MG Tab PO SCH (08:25)
[2017-12-05] MEDS: Zinc (Zinc Gluconate) 50 MG Tab PO SCH (08:25)
[2017-12-05] MEDS: Naloxegol Oxalate 25 MG Tab PO SCH (08:25)
[2017-12-05] MEDS: Mupirocin Oint 22 GM Tube TOP SCH (08:26)
[2017-12-05] MEDS: Sertraline 50 MG Tab PO SCH (20:43)
[2017-12-05] MEDS: Simvastatin 20 MG Tab PO SCH (20:43)
[2017-12-05] MEDS: Omeprazole 20 MG Cap.CR PO SCH (20:44)
[2017-12-05] MEDS: oxyCODONE 5 MG Tab PO SCH (20:44)
[2017-12-05] MEDS: Aspirin 81 MG Tab.EC PO SCH (20:44)
[2017-12-06] MEDS: Acetaminophen 500 MG Tab PO SCH ×4 (00:16→23:10)
[2017-12-06] MEDS: oxyCODONE 5 MG Tab PO PRN ×3 (02:54→15:28)
[2017-12-06] MEDS: Allopurinol 100 MG Tab PO SCH (08:38)
[2017-12-06] MEDS: Iron Polysaccharides Complex 150 MG Cap PO SCH (08:38)
[2017-12-06] MEDS: buPROPion 150 MG Tab.ER PO SCH (08:39)
[2017-12-06] MEDS: Furosemide 20 MG Tab PO SCH (08:39)
[2017-12-06] MEDS: Docusate Sodium 100 MG Cap PO SCH (08:39)
[2017-12-06] MEDS: Naloxegol Oxalate 25 MG Tab PO SCH (08:39)
[2017-12-06] MEDS: Multivitamins with Minerals/Iron/Folic Acid/Lycopene Tab PO SCH (08:39)
[2017-12-06] MEDS: Zinc (Zinc Gluconate) 50 MG Tab PO SCH (08:39)
[2017-12-06] MEDS: Losartan 50 MG Tab PO SCH (08:41)
[2017-12-06] MEDS: Insulin Detemir 100 Units/ML 3 ML Pen SUBCUT SCH (08:41)
[2017-12-06] MEDS: Metoprolol Tartrate 50 MG Tab PO SCH ×2 (08:41→21:05)
[2017-12-06] MEDS: Mupirocin Oint 22 GM Tube TOP SCH (10:12)
[2017-12-06] MEDS ORDERED: Bacitracin Oint 30 GM Tube TOP PRN (10:45)
[2017-12-06] MEDS: Aspirin 81 MG Tab.EC PO SCH (21:04)
[2017-12-06] MEDS: oxyCODONE 5 MG Tab PO SCH (21:04)
[2017-12-06] MEDS: Simvastatin 20 MG Tab PO SCH (21:04)
[2017-12-06] MEDS: Omeprazole 20 MG Cap.CR PO SCH (21:04)
[2017-12-06] MEDS: Sertraline 50 MG Tab PO SCH (21:05)
[2017-12-07] MEDS: Acetaminophen 500 MG Tab PO SCH ×3 (06:31→22:56)
[2017-12-07] MEDS: Iron Polysaccharides Complex 150 MG Cap PO SCH (08:28)
[2017-12-07] MEDS: Multivitamins with Minerals/Iron/Folic Acid/Lycopene Tab PO SCH (08:28)
[2017-12-07] MEDS: Furosemide 20 MG Tab PO SCH ×2 (08:29→17:09)
[2017-12-07] MEDS: Zinc (Zinc Gluconate) 50 MG Tab PO SCH (08:29)
[2017-12-07] MEDS: Docusate Sodium 100 MG Cap PO SCH (08:29)
[2017-12-07] MEDS: Allopurinol 100 MG Tab PO SCH (08:30)
[2017-12-07] MEDS: Naloxegol Oxalate 25 MG Tab PO SCH (08:30)
[2017-12-07] MEDS: buPROPion 150 MG Tab.ER PO SCH (08:30)
[2017-12-07] MEDS: Metoprolol Tartrate 50 MG Tab PO SCH ×2 (08:32→20:00)
[2017-12-07] MEDS: Losartan 50 MG Tab PO SCH (08:32)
[2017-12-07] MEDS: Insulin Detemir 100 Units/ML 3 ML Pen SUBCUT SCH (08:33)
[2017-12-07] MEDS: oxyCODONE 5 MG Tab PO PRN (14:28)
[2017-12-07] MEDS: Sertraline 50 MG Tab PO SCH (20:00)
[2017-12-07] MEDS: Aspirin 81 MG Tab.EC PO SCH (20:00)
[2017-12-07] MEDS: Omeprazole 20 MG Cap.CR PO SCH (20:01)
[2017-12-07] MEDS: Simvastatin 20 MG Tab PO SCH (20:01)
[2017-12-07] MEDS: oxyCODONE 5 MG Tab PO SCH (20:02)
[2017-12-08] MEDS: oxyCODONE 5 MG Tab PO PRN ×3 (02:52→15:06)
[2017-12-08] MEDS: Acetaminophen 500 MG Tab PO SCH ×3 (06:10→22:11)
[2017-12-08] MEDS: Docusate Sodium 100 MG Cap PO SCH (08:49)
[2017-12-08] MEDS: Multivitamins with Minerals/Iron/Folic Acid/Lycopene Tab PO SCH (08:49)
[2017-12-08] MEDS: Iron Polysaccharides Complex 150 MG Cap PO SCH (08:50)
[2017-12-08] MEDS: Losartan 50 MG Tab PO SCH (08:50)
[2017-12-08] MEDS: Furosemide 20 MG Tab PO SCH (08:51)
[2017-12-08] MEDS: Metoprolol Tartrate 50 MG Tab PO SCH ×2 (08:52→21:22)
[2017-12-08] MEDS: Naloxegol Oxalate 25 MG Tab PO SCH (09:00)
[2017-12-08] MEDS: Allopurinol 100 MG Tab PO SCH (09:01)
[2017-12-08] MEDS: Zinc (Zinc Gluconate) 50 MG Tab PO SCH (09:01)
[2017-12-08] MEDS: buPROPion 150 MG Tab.ER PO SCH (09:01)
[2017-12-08] MEDS: Insulin Detemir 100 Units/ML 3 ML Pen SUBCUT SCH (09:08)
--- NOTE | 2017-12-08 11:06 | PCM.PN ---
- General Info Date of Service: 12/08/17 Subjective Update: Patient have increase in pain especially at night with her shoulder as she starting to do physical therapy with left shoulder. Ongoing coccyx pain increase in drainage however no signs of infection. Functional Status: Reports: Tolerating Diet, New Symptoms (ongoing pain in coccyx. ), Incentive Spirometry. Denies: Pain Controlled, Ambulating - Review of Systems General: Denies: Night Sweats HEENT: Reports: No Symptoms Pulmonary: Reports: No Symptoms Cardiovascular: Reports: Edema Gastrointestinal: Reports: Diarrhea Skin: Reports: Other (Coccyx wound) Neurological: Reports: Pre-Existing Deficit, Weakness Psychiatric: Reports: Hallucinations (Nurses report some visual hallucinations transiently where she seen rabbits outside her window and small girl in her room at night. ). Denies: Confusion - Patient Data Vitals - Most Recent: Last Vital Signs Temp 97.8 F 12/08/17 07:00 Pulse 80 12/08/17 08:52 Resp 16 12/08/17 07:00 BP 146/70 H 12/08/17 08:52 Pulse Ox 94 L 12/08/17 07:00 Weight - Most Recent: 223 lb 7 oz I&O - Last 24 Hours: Intake & Output 12/07/17 12/08/17 12/08/17 22:59 06:59 14:59 Intake Total 200 100 Balance 200 100 Lab Results Last 24 Hours: Laboratory Results - last 24 hr 12/07/17 12/08/17 Range/Units 18:15 06:13 POC Glucose 301 H 156 H (74-106) mg/dl Med Orders - Current: Current Medications Acetaminophen (Tylenol Extra Strength) 1,000 mg PO Q8H [facility] Last Admin: 12/08/17 06:10 Dose: 1,000 mg Allopurinol (Zyloprim) 100 mg PO DAILY [facility] Last Admin: 12/08/17 09:01 Dose: 100 mg Aspirin (Halfprin) 81 mg PO BEDTIME [facility] Last Admin: 12/07/17 20:00 Dose: 81 mg Bacitracin (Bacitracin Oint) 1 gm TOP DAILY PRN PRN Reason: Rash Bupropion HCl (Wellbutrin Xl) 150 mg PO DAILY [facility] Last Admin: 12/08/17 09:01 Dose: 150 mg Docusate Sodium (Colace) 100 mg PO DAILY [facility] Last Admin: 12/08/17 08:49 Dose: 100 mg Furosemide (Lasix) 20 mg PO DAILY [facility] Last Admin: 12/08/17 08:51 Dose: 20 mg Furosemide (Lasix) 20 mg PO SUTUTHSA@1700 [facility] Last Admin: 12/07/17 17:09 Dose: 20 mg Insulin Detemir (Levemir) 30 unit SUBCUT DAILY [facility] Last Admin: 12/08/17 09:08 Dose: 30 units Loperamide HCl (Imodium) 2 mg PO ASDIRECTED PRN PRN Reason: Diarrhea Last Admin: 11/30/17 05:53 Dose: 2 mg Lorazepam (Ativan) 0.25 mg PO Q8H PRN PRN Reason: Anxiety Last Admin: 10/25/17 22:23 Dose: 0.25 mg Losartan Potassium (Cozaar) 50 mg PO DAILY [facility] Last Admin: 12/08/17 08:50 Dose: 50 mg Magnesium Hydroxide (Milk Of Magnesia) 30 ml PO DAILY PRN PRN Reason: Constipation Last Admin: 10/26/17 09:10 Dose: 30 ml Metoprolol Tartrate (Lopressor) 50 mg PO BID [facility] Last Admin: 12/08/17 08:52 Dose: 50 mg Multivitamins/Minerals (Centrum) 1 tab PO DAILY [facility] Last Admin: 12/08/17 08:49 Dose: 1 tab Naloxegol (Movantik) 25 mg PO DAILY [facility] Last Admin: 12/08/17 09:00 Dose: 25 mg Nystatin (Nystatin Ointment) 1 gm TOP DAILY PRN PRN Reason: Rash Last Admin: 11/09/17 08:35 Dose: 1 applic Omeprazole (Omeprazole) 20 mg PO DAILY@2100 [facility] Last Admin: 12/07/17 20:01 Dose: 20 mg Ondansetron HCl (Zofran Odt) 8 mg PO TID PRN PRN Reason: nausea or vomitting Last Admin: 12/04/17 02:20 Dose: 8 mg Oxycodone HCl (Oxycodone) 5 mg PO Q6H PRN PRN Reason: Pain Last Admin: 12/08/17 08:44 Dose: 5 mg Oxycodone HCl (Oxycodone) 5 mg PO BEDTIME [facility] Last Admin: 12/07/17 20:02 Dose: 5 mg Polyethylene Glycol (Miralax) 17 gm PO DAILY PRN PRN Reason: Constipation Last Admin: 12/04/17 08:41 Dose: 17 gm Polysaccharide Iron Complex (Ferrex 150) 150 mg PO DAILY [facility] Last Admin: 12/08/17 08:50 Dose: 150 mg Prochlorperazine Maleate (Compazine) 10 mg PO QID PRN PRN Reason: Nausea Last Admin: 12/04/17 05:59 Dose: 10 mg Sertraline HCl (Zoloft) 100 mg PO BEDTIME [facility] Last Admin: 12/07/17 20:00 Dose: 100 mg Simvastatin (Zocor) 40 mg PO BEDTIME [facility] Last Admin: 12/07/17 20:01 Dose: 40 mg Sodium Chloride ([place] Nasal [place]) 1 ml ALDO QID PRN PRN Reason: Dryness Last Admin: 11/12/17 21:03 Dose: 1 spray Zinc Gluconate (Zinc) 50 mg PO DAILY [facility] Last Admin: 12/08/17 09:01 Dose: 50 mg Discontinued Medications Acetaminophen (Tylenol Extra Strength) 1,000 mg PO Q8H [facility] Last Admin: 10/23/17 02:00 Dose: 1,000 mg Acetaminophen (Tylenol Extra Strength) 1,000 mg PO Q8H [facility] Last Admin: 11/22/17 15:12 Dose: 1,000 mg Acetaminophen (Tylenol) Confirm Administered Dose 975 mg .ROUTE .STK-MED ONE Stop: 11/08/17 07:36 Last Admin: 11/08/17 08:28 Dose: 975 mg Hydrocodone Bitart/Acetaminophen ([place] 325-5 Mg) 1 - 2 tab PO Q4H PRN PRN Reason: Moderate Pain Last Admin: 10/24/17 19:26 Dose: 1 tab Calcium Carbonate/Glycine (Tums) 500 mg PO TID PRN PRN Reason: Indigestion Al Hydroxide/Mg Hydroxide 40 ml/ Diphenhydramine HCl 12.5 mg/ Lidocaine HCl 40 ml 0 ml PO TID PRN PRN Reason: mouth sores/burning Last Admin: 10/28/17 08:11 Dose: 10 ml Cranberry (Azo Cranberry) 1 each PO BEDTIME [facility] Last Admin: 11/07/17 21:46 Dose: Not Given Heparin Sodium (Porcine) (Heparin Lock Flush 100 Units/Ml) 500 units FLUSH ASDIRECTED PRN PRN Reason: Other Cefepime HCl 1 gm/ Sodium (Chloride) 50 mls @ 100 mls/hr IV Q8H [facility] Last Admin: 11/01/17 18:52 Dose: Not Given Cefepime HCl 1 gm/ Sodium (Chloride) 50 mls @ 100 mls/hr IV Q24H [facility] Last Admin: 11/07/17 20:32 Dose: 100 mls/hr Sodium Chloride (Normal Saline) Confirm Administered Dose 50 mls @ as directed .ROUTE .[facility] ONE Stop: 11/02/17 22:10 Last Admin: 11/02/17 23:15 Dose: 100 mls/hr Sodium Chloride (Normal Saline) Confirm Administered Dose 50 mls @ as directed .ROUTE .[facility] ONE Stop: 11/03/17 21:46 Last Admin: 11/03/17 21:56 Dose: Not Given Sodium Chloride (Normal Saline) 50 mls @ 50 mls/hr IV ASDIRECTED [facility] Albumin Human (Flexbumin 25%) 100 mls @ 50 mls/hr IV ONETIME ONE Stop: 11/22/17 13:59 Last Admin: 11/22/17 13:07 Dose: 50 mls/hr Sodium Chloride (Normal Saline) 250 mls @ 125 mls/hr IV ASDIRECTED [facility] Stop: 11/22/17 21:00 Last Admin: 11/22/17 15:40 Dose: 125 mls/hr Ciprofloxacin/Dextrose (Cipro In D5w 400 Mg/200 Ml) 200 mls @ 200 mls/hr IV Q12H [facility] Last Admin: 11/26/17 06:13 Dose: 200 mls/hr Sodium Chloride (Normal Saline) Confirm Administered Dose 100 mls @ as directed .ROUTE .[facility] ONE Stop: 11/22/17 20:04 Last Admin: 11/22/17 20:05 Dose: 100 mls/hr Sodium Chloride (Normal Saline) 100 mls @ 200 mls/hr IV ASDIRECTED [facility] Sodium Chloride (Normal Saline) 100 mls @ 20 mls/hr IV DAILY@1900 [facility] Last Admin: 11/25/17 18:08 Dose: 20 mls/hr Insulin Aspart (Novolog) 0 unit SUBCUT WITHMEALSANDBED [facility]; Protocol Stop: 10/31/17 00:00 Last Admin: 10/30/17 21:02 Dose: 5 units Insulin Aspart (Novolog) 2 unit SUBCUT ONETIME ONE Stop: 10/31/17 20:59 Last Admin: 10/31/17 21:07 Dose: 2 units Insulin Aspart (Novolog) 10 unit SUBCUT ONETIME ONE Stop: 11/12/17 17:44 Last Admin: 11/12/17 18:06 Dose: 10 units Insulin Detemir (Levemir) 44 unit SUBCUT DAILY [facility] Last Admin: 10/30/17 10:10 Dose: Not Given Insulin Detemir (Levemir) 40 unit SUBCUT DAILY [facility] Last Admin: 11/14/17 08:22 Dose: 40 units Insulin Detemir (Levemir) 44 unit SUBCUT DAILY [facility] Last Admin: 11/29/17 11:32 Dose: Not Given Insulin Detemir (Levemir) 34 unit SUBCUT DAILY [facility] Last Admin: 12/02/17 10:11 Dose: Not Given Lidocaine/Epinephrine (Xylocaine 1% With Epinephrine 1:100,000) 3 ml INJECT ONETIME ONE Stop: 11/05/17 09:01 Last Admin: 11/05/17 09:00 Dose: 3 ml Losartan Potassium (Cozaar) 25 mg PO DAILY [facility] Last Admin: 11/27/17 09:05 Dose: 25 mg Mupirocin (Bactroban Crm) 1 gm TOP TID [facility] Last Admin: 10/29/17 11:29 Dose: Not Given Mupirocin (Bactroban Oint) 0 gm TOP DAILY [facility] Last Admin: 12/06/17 10:12 Dose: 1 applic Insulin Degludec ( (Tresiba) 44units) 44 units SUBCUT DAILY [facility] Nystatin (Nystop) 0 gm TOP BID [facility] Last Admin: 10/25/17 08:58 Dose: 1 applic Nystatin (Nystop) 0 gm TOP TID [facility] Last Admin: 10/26/17 11:15 Dose: Not Given Nystatin (Nystatin Ointment) 0 gm TOP TID [facility] Last Admin: 11/04/17 15:49 Dose: Not Given Olanzapine (Zyprexa) 10 mg PO ASDIRECTED [facility] Olanzapine (Zyprexa) 10 mg PO BEDTIME [facility] Stop: 11/14/17 21:01 Last Admin: 11/14/17 21:28 Dose: 10 mg Olanzapine (Zyprexa) 10 mg PO BEDTIME [facility] Stop: 11/22/17 21:01 Last Admin: 11/22/17 21:41 Dose: 10 mg Omeprazole (Omeprazole) 20 mg PO SUTUTHSA@2100 [facility] Last Admin: 10/23/17 21:24 Dose: 20 mg Oxycodone HCl (Oxycodone) 5 mg PO Q6H [facility] Last Admin: 10/23/17 06:11 Dose: 5 mg Oxycodone HCl (Oxycodone) 5 mg PO Q6H [facility] Last Admin: 10/24/17 06:21 Dose: Not Given Oxycodone HCl (Oxycodone) 5 mg PO ONETIME ONE Stop: 11/23/17 18:12 Last Admin: 11/23/17 18:48 Dose: 5 mg Prochlorperazine Maleate (Compazine) 10 mg PO QID PRN PRN Reason: Nausea Senna/Docusate Sodium (Senna Plus) 1 tab PO BID PRN PRN Reason: Constipation Last Admin: 10/28/17 08:08 Dose: 1 tab Senna/Docusate Sodium (Senna Plus) 1 tab PO BID [facility] Last Admin: 11/04/17 15:49 Dose: Not Given Senna/Docusate Sodium (Senna Plus) 1 - 2 tab PO DAILY PRN PRN Reason: Constipation Sodium Chloride (Normal Saline) 20 ml FLUSH ASDIRECTED PRN PRN Reason: Other Sodium Chloride (Saline Flush) 20 ml FLUSH Q8H [facility] Last Admin: 11/02/17 10:46 Dose: Not Given Sodium Chloride (Saline Flush) 20 ml FLUSH Q8H [facility] Last Admin: 11/11/17 12:20 Dose: Not Given - Exam Quality Assessment: Skin Breakdown. No: Supplemental Oxygen General: Alert, Oriented, Cooperative, Mild Distress (Mild distress due to ongoing coccyx and left shoulder pain) Neck: Supple Lungs: Clear to Auscultation, Normal Respiratory Effort Cardiovascular: Regular Rate, Regular Rhythm GI/Abdominal Exam: Soft (Female) Exam: Deferred Extremities: Pedal Edema. No: Joint Swelling, Increased Warmth Peripheral Pulses: 2+: Radial (L), Radial (R) Wound/Incisions: Drainage, Decubitis (Inspected wound, 4 cm x 3.5 cm sacral decubitus ulcer midline. No necrotic tissue, slight slough however no odor, base does appear to have granulating tissue, recent sharps debridement ) - Problem List Review Problem List Initiated/Reviewed/Updated: Yes - Plan Plan:: HPI: This is a 76 year old female who had previously been in swing bed status due to a left humeral fracture and deconditioning. The patient has been recently diagnosed with peritoneal carcinomatosis. The patient was sent up to [facility] on 10/20/17 for abdominal paracentesis and pleurx catheter placement. She had labs done that day which showed a hemoglobin of 6.5. She was then admitted to their hospitalist services. She was given 2 units of PRBCs. She was due for her second cycle of carboplatin and taxol while there and this was completed on 10/21/17. She was also given Neulasta prior to discharge. She has been tolerating her treatment well and has been changed from a weekly protocol to every 3 week protocol. The patient was admitted back to swing bed status for rehabilitation of her fracture and deconditioning. PRIMARY ASSESSMENT/PLAN: update today on rounds, left shoulder and coccyx pain at night with some slight restlessness and visual hallucinations. Oxycodone 5 mg currently given. She is on scheduled Tylenol. Has been doing more increase ROM. Inspected wound, nurses report changing dressing 3 times a day. add ramelteon Stage 3 pressure ulcer to coccyx, POA, recent wound debridement, will start wound VAC therapy. Off loading. Nutritional support, Deconditioning. ongoing physical therapy, pain control prior to PT. nausea, Zyprexa, Compazine 4 times a day when necessary, Zofran before meals, monitor for tardive dyskinesia sx, Left humeral head fracture. Continue with sling and swath. She was seen by Dr. Singer, orthopedist, on 10/18/17 and it was advised for conservative management to include sling and swath for 6 weeks followed by aggressive therapy for range of motion and strengthening. Immunocompromised host. Malignant ascites. pleurx catheter. Anemia due to antineoplastic chemotherapy. Hgb 7.6, will reassess Constipation. Continue movantik however increase senna. SECONDARY ASSESSMENT/PLAN: Primary peritoneal carcinomatosis. Continue with 3 week protocol of carboplatin and taxol per oncology. She is to receive zyprexa days 1-4 of chemotherapy. Oxycodone changed to PRN due to confusion, however will schedule 5 mg at bedtime due to pain and PRN during the day. Discontinue hydrocodone. History of endometrial cancer, s/p hysterceomty 2009. CAD. HTN, stable. Continue lopressor and losartan. Aortic stenosis. History of atrial flutter. Type 2 DM. Accuchecks daily. Tresiba switched to levemir daily due to not being available in house. CKD stage 3, stable. GFR 49, creatinine 1.09. Hyperlipidemia. Continue simvastatin. Obesity. Diabetic retinopathy. Depression. Continue zoloft. GERD. Continue omeprazole. OAB. Osteoarthritis. History of hypercalcemia. Calcium 8.4 corrects to 9.4. Hypoalbuminemia. Check albumin. DVT prophylaxis. Score of 6, Continue with phan stockings. Overall plan: Wound VAC therapy, offloading, nutritional support, oxycodone increased to 7.5 mg, NSAID cream Voleren Gel scheduled. Add ramelteon
[2017-12-08] MEDS: Diclofenac Sodium 1% Gel 100 GM Tube TOP SCH ×3 (13:05→21:21)
[2017-12-08] MEDS: Aspirin 81 MG Tab.EC PO SCH (21:21)
[2017-12-08] MEDS: Sertraline 50 MG Tab PO SCH (21:23)
[2017-12-08] MEDS: Simvastatin 20 MG Tab PO SCH (21:24)
[2017-12-08] MEDS: oxyCODONE 5 MG Tab PO SCH (21:27)
[2017-12-08] MEDS: Omeprazole 20 MG Cap.CR PO SCH (21:27)
[2017-12-09] MEDS: Acetaminophen 500 MG Tab PO SCH ×2 (06:23→15:42)
[2017-12-09 08:12] LABS: ANION GAP 12.8 mmol/L (5-15); CHLORIDE,CL 103 mmol/L (98-115); SODIUM,NA 139 mmol/L (136-145)
[2017-12-09] MEDS: Docusate Sodium 100 MG Cap PO SCH (08:13)
[2017-12-09] MEDS: Multivitamins with Minerals/Iron/Folic Acid/Lycopene Tab PO SCH (08:13)
[2017-12-09] MEDS: Iron Polysaccharides Complex 150 MG Cap PO SCH (08:14)
[2017-12-09] MEDS: Losartan 50 MG Tab PO SCH (08:14)
[2017-12-09] MEDS: Insulin Detemir 100 Units/ML 3 ML Pen SUBCUT SCH (08:14)
[2017-12-09] MEDS: Furosemide 20 MG Tab PO SCH ×2 (08:14→17:17)
[2017-12-09] MEDS: Naloxegol Oxalate 25 MG Tab PO SCH (08:16)
[2017-12-09] MEDS: buPROPion 150 MG Tab.ER PO SCH (08:16)
[2017-12-09] MEDS: Zinc (Zinc Gluconate) 50 MG Tab PO SCH (08:16)
[2017-12-09] MEDS: Diclofenac Sodium 1% Gel 100 GM Tube TOP SCH ×4 (08:16→20:39)
[2017-12-09] MEDS: Metoprolol Tartrate 50 MG Tab PO SCH ×2 (08:16→20:36)
[2017-12-09] MEDS: Allopurinol 100 MG Tab PO SCH (08:17)
[2017-12-09] MEDS: Ondansetron 4 MG Tab.DIS PO PRN (12:45)
[2017-12-09] MEDS: oxyCODONE 5 MG Tab PO PRN ×2 (12:45→17:53)
[2017-12-09] MEDS: oxyCODONE 5 MG Tab PO SCH (20:36)
[2017-12-09] MEDS: Simvastatin 20 MG Tab PO SCH (20:36)
[2017-12-09] MEDS: Sertraline 50 MG Tab PO SCH (20:36)
[2017-12-09] MEDS: Omeprazole 20 MG Cap.CR PO SCH (20:36)
[2017-12-09] MEDS: Aspirin 81 MG Tab.EC PO SCH (20:36)
[2017-12-10] MEDS: Acetaminophen 500 MG Tab PO SCH ×6 (00:15→22:27)
[2017-12-10] MEDS: oxyCODONE 5 MG Tab PO PRN ×3 (02:39→15:43)
[2017-12-10] MEDS: Docusate Sodium 100 MG Cap PO SCH (09:33)
[2017-12-10] MEDS: Multivitamins with Minerals/Iron/Folic Acid/Lycopene Tab PO SCH (09:33)
[2017-12-10] MEDS: Zinc (Zinc Gluconate) 50 MG Tab PO SCH (09:34)
[2017-12-10] MEDS: Losartan 50 MG Tab PO SCH (09:35)
[2017-12-10] MEDS: Naloxegol Oxalate 25 MG Tab PO SCH (09:35)
[2017-12-10] MEDS: Iron Polysaccharides Complex 150 MG Cap PO SCH (09:35)
[2017-12-10] MEDS: Metoprolol Tartrate 50 MG Tab PO SCH ×2 (09:35→20:34)
[2017-12-10] MEDS: Furosemide 20 MG Tab PO SCH (09:36)
[2017-12-10] MEDS: Insulin Detemir 100 Units/ML 3 ML Pen SUBCUT SCH (09:36)
[2017-12-10] MEDS: Allopurinol 100 MG Tab PO SCH (09:37)
[2017-12-10] MEDS: buPROPion 150 MG Tab.ER PO SCH (09:37)
[2017-12-10] MEDS: Diclofenac Sodium 1% Gel 100 GM Tube TOP SCH ×4 (09:37→20:38)
[2017-12-10] MEDS: Aspirin 81 MG Tab.EC PO SCH (20:34)
[2017-12-10] MEDS: Omeprazole 20 MG Cap.CR PO SCH (20:34)
[2017-12-10] MEDS: oxyCODONE 5 MG Tab PO SCH (20:35)
[2017-12-10] MEDS: Sertraline 50 MG Tab PO SCH (20:37)
[2017-12-10] MEDS: Simvastatin 20 MG Tab PO SCH (20:37)
[2017-12-11] MEDS: Acetaminophen 500 MG Tab PO SCH ×4 (06:41→23:35)
[2017-12-11] MEDS: Ondansetron 4 MG Tab.DIS PO PRN ×2 (07:52→18:06)
[2017-12-11] MEDS: Insulin Detemir 100 Units/ML 3 ML Pen SUBCUT SCH (08:31)
[2017-12-11] MEDS: Naloxegol Oxalate 25 MG Tab PO SCH (08:33)
[2017-12-11] MEDS: Docusate Sodium 100 MG Cap PO SCH (08:33)
[2017-12-11] MEDS: Zinc (Zinc Gluconate) 50 MG Tab PO SCH (08:33)
[2017-12-11] MEDS: Diclofenac Sodium 1% Gel 100 GM Tube TOP SCH ×4 (08:34→20:17)
[2017-12-11] MEDS: Allopurinol 100 MG Tab PO SCH (08:34)
[2017-12-11] MEDS: buPROPion 150 MG Tab.ER PO SCH (08:34)
[2017-12-11] MEDS: Furosemide 20 MG Tab PO SCH ×2 (08:34→16:56)
[2017-12-11] MEDS: Iron Polysaccharides Complex 150 MG Cap PO SCH (08:35)
[2017-12-11] MEDS: Multivitamins with Minerals/Iron/Folic Acid/Lycopene Tab PO SCH (08:35)
[2017-12-11] MEDS: Losartan 50 MG Tab PO SCH (08:36)
[2017-12-11] MEDS: Metoprolol Tartrate 50 MG Tab PO SCH ×2 (08:36→20:18)
[2017-12-11] MEDS: Aspirin 81 MG Tab.EC PO SCH (20:17)
[2017-12-11] MEDS: Sertraline 50 MG Tab PO SCH (20:18)
[2017-12-11] MEDS: Simvastatin 20 MG Tab PO SCH (20:18)
[2017-12-11] MEDS: Omeprazole 20 MG Cap.CR PO SCH (20:18)
[2017-12-11] MEDS: oxyCODONE 5 MG Tab PO SCH (20:19)
[2017-12-12] MEDS: Acetaminophen 500 MG Tab PO SCH ×3 (06:47→23:00)
[2017-12-12] MEDS: Insulin Detemir 100 Units/ML 3 ML Pen SUBCUT SCH (08:22)
[2017-12-12] MEDS: Diclofenac Sodium 1% Gel 100 GM Tube TOP SCH ×4 (08:24→22:00)
[2017-12-12] MEDS: Furosemide 20 MG Tab PO SCH ×2 (08:26→16:01)
[2017-12-12] MEDS: Zinc (Zinc Gluconate) 50 MG Tab PO SCH (08:26)
[2017-12-12] MEDS: Allopurinol 100 MG Tab PO SCH (08:26)
[2017-12-12] MEDS: Metoprolol Tartrate 50 MG Tab PO SCH ×2 (08:27→20:58)
[2017-12-12] MEDS: Naloxegol Oxalate 25 MG Tab PO SCH (08:27)
[2017-12-12] MEDS: Docusate Sodium 100 MG Cap PO SCH (08:27)
[2017-12-12] MEDS: Iron Polysaccharides Complex 150 MG Cap PO SCH (08:27)
[2017-12-12] MEDS: Multivitamins with Minerals/Iron/Folic Acid/Lycopene Tab PO SCH (08:28)
[2017-12-12] MEDS: buPROPion 150 MG Tab.ER PO SCH (08:28)
[2017-12-12] MEDS: Losartan 50 MG Tab PO SCH (08:28)
[2017-12-12] MEDS: oxyCODONE 5 MG Tab PO PRN (12:45)
[2017-12-12] MEDS: Omeprazole 20 MG Cap.CR PO SCH (20:57)
[2017-12-12] MEDS: Simvastatin 20 MG Tab PO SCH (20:57)
[2017-12-12] MEDS: Aspirin 81 MG Tab.EC PO SCH (20:57)
[2017-12-12] MEDS: Sertraline 50 MG Tab PO SCH (20:58)
[2017-12-12] MEDS: oxyCODONE 5 MG Tab PO SCH (20:58)
[2017-12-13] MEDS: oxyCODONE 5 MG Tab PO PRN ×3 (01:38→15:48)
[2017-12-13] MEDS: Acetaminophen 500 MG Tab PO SCH ×4 (06:44→22:49)
[2017-12-13] MEDS: Docusate Sodium 100 MG Cap PO SCH (09:24)
[2017-12-13] MEDS: Losartan 50 MG Tab PO SCH (09:24)
[2017-12-13] MEDS: Multivitamins with Minerals/Iron/Folic Acid/Lycopene Tab PO SCH (09:24)
[2017-12-13] MEDS: Iron Polysaccharides Complex 150 MG Cap PO SCH (09:25)
[2017-12-13] MEDS: Furosemide 20 MG Tab PO SCH (09:25)
[2017-12-13] MEDS: Zinc (Zinc Gluconate) 50 MG Tab PO SCH (09:25)
[2017-12-13] MEDS: Naloxegol Oxalate 25 MG Tab PO SCH (09:25)
[2017-12-13] MEDS: buPROPion 150 MG Tab.ER PO SCH (09:25)
[2017-12-13] MEDS: Allopurinol 100 MG Tab PO SCH (09:25)
[2017-12-13] MEDS: Metoprolol Tartrate 50 MG Tab PO SCH ×2 (09:25→20:08)
[2017-12-13] MEDS: Omeprazole 20 MG Cap.CR PO SCH ×2 (09:27→17:43)
[2017-12-13] MEDS: Insulin Detemir 100 Units/ML 3 ML Pen SUBCUT SCH (09:29)
[2017-12-13] MEDS: Diclofenac Sodium 1% Gel 100 GM Tube TOP SCH ×4 (10:01→20:07)
[2017-12-13] MEDS ORDERED: oxyCODONE 5 MG Tab PO ONE (17:58)
[2017-12-13] MEDS: LORazepam 0.5 MG Tab PO PRN (18:03)
[2017-12-13] MEDS: Aspirin 81 MG Tab.EC PO SCH (20:04)
[2017-12-13] MEDS: Simvastatin 20 MG Tab PO SCH (20:05)
[2017-12-13] MEDS: oxyCODONE 5 MG Tab PO SCH (20:05)
[2017-12-13] MEDS: Sertraline 50 MG Tab PO SCH (20:05)
[2017-12-14] MEDS: Acetaminophen 500 MG Tab PO SCH ×3 (07:01→22:56)
[2017-12-14] MEDS: Furosemide 20 MG Tab PO SCH ×2 (07:01→14:27)
[2017-12-14] MEDS: Omeprazole 20 MG Cap.CR PO SCH ×2 (08:01→17:38)
[2017-12-14] MEDS: oxyCODONE ER 10 MG TAB.ER PO SCH ×2 (08:42→21:03)
[2017-12-14] MEDS: Metoprolol Tartrate 50 MG Tab PO SCH ×2 (08:43→21:02)
[2017-12-14] MEDS: buPROPion 150 MG Tab.ER PO SCH (08:43)
[2017-12-14] MEDS: Naloxegol Oxalate 25 MG Tab PO SCH (08:43)
[2017-12-14] MEDS: Multivitamins with Minerals/Iron/Folic Acid/Lycopene Tab PO SCH (08:43)
[2017-12-14] MEDS: Losartan 50 MG Tab PO SCH (08:44)
[2017-12-14] MEDS: Allopurinol 100 MG Tab PO SCH (08:44)
[2017-12-14] MEDS: Zinc (Zinc Gluconate) 50 MG Tab PO SCH (08:44)
[2017-12-14] MEDS: Docusate Sodium 100 MG Cap PO SCH (08:44)
[2017-12-14] MEDS: Iron Polysaccharides Complex 150 MG Cap PO SCH (08:45)
[2017-12-14] MEDS: Insulin Detemir 100 Units/ML 3 ML Pen SUBCUT SCH (08:45)
[2017-12-14] MEDS: Diclofenac Sodium 1% Gel 100 GM Tube TOP SCH ×4 (08:46→21:01)
[2017-12-14] MEDS: oxyCODONE 5 MG Tab PO PRN (12:35)
[2017-12-14] MEDS: Aspirin 81 MG Tab.EC PO SCH (21:02)
[2017-12-14] MEDS: Simvastatin 20 MG Tab PO SCH (21:04)
[2017-12-14] MEDS: Sertraline 50 MG Tab PO SCH (21:04)
[2017-12-15] MEDS: Omeprazole 20 MG Cap.CR PO SCH ×3 (06:26→17:20)
[2017-12-15] MEDS: Acetaminophen 500 MG Tab PO SCH ×3 (06:26→22:18)
[2017-12-15] MEDS: Furosemide 20 MG Tab PO SCH (06:26)
[2017-12-15] MEDS: Ondansetron 4 MG Tab.DIS PO PRN (08:32)
[2017-12-15] MEDS: Naloxegol Oxalate 25 MG Tab PO SCH (08:44)
[2017-12-15] MEDS: Iron Polysaccharides Complex 150 MG Cap PO SCH (08:44)
[2017-12-15] MEDS: Docusate Sodium 100 MG Cap PO SCH (08:44)
[2017-12-15] MEDS: Zinc (Zinc Gluconate) 50 MG Tab PO SCH (08:44)
[2017-12-15] MEDS: oxyCODONE ER 10 MG TAB.ER PO SCH ×2 (08:44→21:02)
[2017-12-15] MEDS: buPROPion 150 MG Tab.ER PO SCH (08:44)
[2017-12-15] MEDS: Multivitamins with Minerals/Iron/Folic Acid/Lycopene Tab PO SCH (08:44)
[2017-12-15] MEDS: Allopurinol 100 MG Tab PO SCH (08:44)
[2017-12-15] MEDS: Losartan 50 MG Tab PO SCH (08:44)
[2017-12-15] MEDS: Insulin Detemir 100 Units/ML 3 ML Pen SUBCUT SCH (08:45)
[2017-12-15] MEDS: Metoprolol Tartrate 50 MG Tab PO SCH ×2 (08:45→20:43)
[2017-12-15] MEDS: Diclofenac Sodium 1% Gel 100 GM Tube TOP SCH ×4 (10:01→20:43)
[2017-12-15] MEDS: oxyCODONE 5 MG Tab PO PRN ×2 (10:04→16:09)
[2017-12-15] MEDS: Aspirin 81 MG Tab.EC PO SCH (20:42)
[2017-12-15] MEDS: Simvastatin 20 MG Tab PO SCH (20:42)
[2017-12-15] MEDS: Sertraline 50 MG Tab PO SCH (20:42)
[2017-12-16] MEDS: oxyCODONE 5 MG Tab PO PRN ×2 (05:29→11:29)
[2017-12-16] MEDS: Prochlorperazine 5 MG Tab PO PRN (05:29)
[2017-12-16] MEDS: Acetaminophen 500 MG Tab PO SCH ×3 (06:34→23:44)
[2017-12-16] MEDS: Furosemide 20 MG Tab PO SCH ×2 (06:35→15:03)
[2017-12-16] MEDS: Omeprazole 20 MG Cap.CR PO SCH ×2 (07:37→17:02)
[2017-12-16] MEDS: Docusate Sodium 100 MG Cap PO SCH (08:18)
[2017-12-16] MEDS: Multivitamins with Minerals/Iron/Folic Acid/Lycopene Tab PO SCH (08:18)
[2017-12-16] MEDS: Losartan 50 MG Tab PO SCH (08:18)
[2017-12-16] MEDS: Metoprolol Tartrate 50 MG Tab PO SCH ×2 (08:19→20:16)
[2017-12-16] MEDS: Iron Polysaccharides Complex 150 MG Cap PO SCH (08:19)
[2017-12-16] MEDS: Naloxegol Oxalate 25 MG Tab PO SCH (08:19)
[2017-12-16] MEDS: buPROPion 150 MG Tab.ER PO SCH (08:19)
[2017-12-16] MEDS: Zinc (Zinc Gluconate) 50 MG Tab PO SCH (08:20)
[2017-12-16] MEDS: Allopurinol 100 MG Tab PO SCH (08:20)
[2017-12-16] MEDS: Diclofenac Sodium 1% Gel 100 GM Tube TOP SCH ×4 (08:23→20:16)
[2017-12-16] MEDS: Insulin Detemir 100 Units/ML 3 ML Pen SUBCUT SCH (08:23)
[2017-12-16] MEDS: oxyCODONE ER 10 MG TAB.ER PO SCH ×2 (08:23→20:16)
[2017-12-16] MEDS: Simvastatin 20 MG Tab PO SCH (20:16)
[2017-12-16] MEDS: Sertraline 50 MG Tab PO SCH (20:16)
[2017-12-16] MEDS: Aspirin 81 MG Tab.EC PO SCH (20:16)
[2017-12-17] MEDS: Acetaminophen 500 MG Tab PO SCH ×3 (06:37→23:10)
[2017-12-17] MEDS: Furosemide 20 MG Tab PO SCH (06:37)
[2017-12-17] MEDS: Omeprazole 20 MG Cap.CR PO SCH ×3 (06:37→16:45)
[2017-12-17] MEDS: Iron Polysaccharides Complex 150 MG Cap PO SCH (08:19)
[2017-12-17] MEDS: oxyCODONE ER 10 MG TAB.ER PO SCH ×2 (08:19→20:51)
[2017-12-17] MEDS: Docusate Sodium 100 MG Cap PO SCH (08:19)
[2017-12-17] MEDS: Allopurinol 100 MG Tab PO SCH (08:19)
[2017-12-17] MEDS: Naloxegol Oxalate 25 MG Tab PO SCH (08:19)
[2017-12-17] MEDS: Zinc (Zinc Gluconate) 50 MG Tab PO SCH (08:19)
[2017-12-17] MEDS: buPROPion 150 MG Tab.ER PO SCH (08:19)
[2017-12-17] MEDS: Insulin Detemir 100 Units/ML 3 ML Pen SUBCUT SCH (08:20)
[2017-12-17] MEDS: Diclofenac Sodium 1% Gel 100 GM Tube TOP SCH ×4 (08:20→20:52)
[2017-12-17] MEDS: Multivitamins with Minerals/Iron/Folic Acid/Lycopene Tab PO SCH (08:20)
[2017-12-17] MEDS: Metoprolol Tartrate 50 MG Tab PO SCH ×2 (08:28→20:50)
[2017-12-17] MEDS: Losartan 50 MG Tab PO SCH (08:28)
[2017-12-17] MEDS: oxyCODONE 5 MG Tab PO PRN (11:46)
[2017-12-17] MEDS: Aspirin 81 MG Tab.EC PO SCH (20:50)
[2017-12-17] MEDS: Sertraline 50 MG Tab PO SCH (20:52)
[2017-12-17] MEDS: Simvastatin 20 MG Tab PO SCH (20:52)
[2017-12-18] MEDS: Omeprazole 20 MG Cap.CR PO SCH ×2 (05:56→16:42)
[2017-12-18] MEDS: Furosemide 20 MG Tab PO SCH ×2 (06:48→16:41)
[2017-12-18] MEDS: Acetaminophen 500 MG Tab PO SCH ×2 (06:48→16:41)
[2017-12-18] MEDS: Multivitamins with Minerals/Iron/Folic Acid/Lycopene Tab PO SCH (08:17)
[2017-12-18] MEDS: Docusate Sodium 100 MG Cap PO SCH (08:17)
[2017-12-18] MEDS: Iron Polysaccharides Complex 150 MG Cap PO SCH (08:18)
[2017-12-18] MEDS: Allopurinol 100 MG Tab PO SCH (08:18)
[2017-12-18] MEDS: Losartan 50 MG Tab PO SCH (08:18)
[2017-12-18] MEDS: buPROPion 150 MG Tab.ER PO SCH (08:18)
[2017-12-18] MEDS: Zinc (Zinc Gluconate) 50 MG Tab PO SCH (08:18)
[2017-12-18] MEDS: Naloxegol Oxalate 25 MG Tab PO SCH (08:18)
[2017-12-18] MEDS: Metoprolol Tartrate 50 MG Tab PO SCH ×2 (08:19→22:04)
[2017-12-18] MEDS: oxyCODONE ER 10 MG TAB.ER PO SCH ×2 (08:22→22:04)
[2017-12-18] MEDS: Insulin Detemir 100 Units/ML 3 ML Pen SUBCUT SCH (08:23)
[2017-12-18] MEDS: Diclofenac Sodium 1% Gel 100 GM Tube TOP SCH ×4 (08:24→22:07)
[2017-12-18] MEDS: Sertraline 50 MG Tab PO SCH (22:02)
[2017-12-18] MEDS: Simvastatin 20 MG Tab PO SCH (22:03)
[2017-12-18] MEDS: Aspirin 81 MG Tab.EC PO SCH (22:03)
[2017-12-19] MEDS: Acetaminophen 500 MG Tab PO SCH ×4 (00:57→22:56)
[2017-12-19] MEDS: Omeprazole 20 MG Cap.CR PO SCH ×2 (05:53→17:02)
[2017-12-19] MEDS: Furosemide 20 MG Tab PO SCH ×2 (06:34→15:51)
[2017-12-19] MEDS: buPROPion 150 MG Tab.ER PO SCH (08:21)
[2017-12-19] MEDS: Allopurinol 100 MG Tab PO SCH (08:21)
[2017-12-19] MEDS: Zinc (Zinc Gluconate) 50 MG Tab PO SCH (08:21)
[2017-12-19] MEDS: Naloxegol Oxalate 25 MG Tab PO SCH (08:21)
[2017-12-19] MEDS: Multivitamins with Minerals/Iron/Folic Acid/Lycopene Tab PO SCH (08:22)
[2017-12-19] MEDS: Docusate Sodium 100 MG Cap PO SCH (08:22)
[2017-12-19] MEDS: Iron Polysaccharides Complex 150 MG Cap PO SCH (08:22)
[2017-12-19] MEDS: Metoprolol Tartrate 50 MG Tab PO SCH ×2 (08:22→22:17)
[2017-12-19] MEDS: Losartan 50 MG Tab PO SCH (08:22)
[2017-12-19] MEDS: Insulin Detemir 100 Units/ML 3 ML Pen SUBCUT SCH (08:24)
[2017-12-19] MEDS: oxyCODONE ER 10 MG TAB.ER PO SCH ×2 (08:32→22:18)
[2017-12-19] MEDS: oxyCODONE 5 MG Tab PO PRN ×2 (10:17→15:51)
[2017-12-19] MEDS: Diclofenac Sodium 1% Gel 100 GM Tube TOP SCH ×4 (10:18→22:20)
[2017-12-19] MEDS: Aspirin 81 MG Tab.EC PO SCH (22:17)
[2017-12-19] MEDS: Sertraline 50 MG Tab PO SCH (22:19)
[2017-12-19] MEDS: Simvastatin 20 MG Tab PO SCH (22:19)
[2017-12-20] MEDS: Omeprazole 20 MG Cap.CR PO SCH ×2 (05:49→16:46)
[2017-12-20] MEDS: Furosemide 20 MG Tab PO SCH (06:23)
[2017-12-20] MEDS: Acetaminophen 500 MG Tab PO SCH ×3 (06:23→22:22)
[2017-12-20] MEDS: Insulin Detemir 100 Units/ML 3 ML Pen SUBCUT SCH (08:02)
[2017-12-20] MEDS: Losartan 50 MG Tab PO SCH (08:03)
[2017-12-20] MEDS: Multivitamins with Minerals/Iron/Folic Acid/Lycopene Tab PO SCH (08:03)
[2017-12-20] MEDS: Allopurinol 100 MG Tab PO SCH (08:03)
[2017-12-20] MEDS: Docusate Sodium 100 MG Cap PO SCH (08:03)
[2017-12-20] MEDS: buPROPion 150 MG Tab.ER PO SCH (08:03)
[2017-12-20] MEDS: Metoprolol Tartrate 50 MG Tab PO SCH ×2 (08:04→20:00)
[2017-12-20] MEDS: Prochlorperazine 5 MG Tab PO PRN (08:04)
[2017-12-20] MEDS: Zinc (Zinc Gluconate) 50 MG Tab PO SCH (08:05)
[2017-12-20] MEDS: Iron Polysaccharides Complex 150 MG Cap PO SCH (08:05)
[2017-12-20] MEDS: Naloxegol Oxalate 25 MG Tab PO SCH (08:05)
[2017-12-20] MEDS: Diclofenac Sodium 1% Gel 100 GM Tube TOP SCH ×4 (08:06→20:00)
[2017-12-20] MEDS: oxyCODONE ER 10 MG TAB.ER PO SCH ×2 (08:29→20:03)
[2017-12-20 09:54] LABS: ANION GAP 15.8 mmol/L (5-15)
[2017-12-20] MEDS ORDERED: Nitrofurantoin Monohydrate/Macrocrystalline 100 MG Cap PO SCH (12:00)
--- NOTE | 2017-12-20 12:02 | PN ---
12/20/2017 PATIENT NAME: EZYNEP MCGEE SUBJECTIVE: This is a 77-year-old female patient, who has been here at the [facility] in swing bed status for a long time. The patient has a history of peritoneal carcinomatosis. The patient was started on chemotherapy and after her first day of chemotherapy, she fell backwards down two stairs and fractured her left humeral head. The patient was sent to [place], where she had a PleurX catheter placed in her abdomen to drain malignant ascites. The patient was seen by Dr. Collier in Oncology for her peritoneal carcinomatosis. She recently completed a three-week protocol of carboplatin and Taxol. She also has a stage III coccyx ulcer that was recently, a couple of weeks ago, debrided by Dr. Dixon. She now currently has a wound VAC in place. Today now, the patient states that she just feels very nauseated. She says that she feels a little sweaty. She just does not really feel well today. Her main complaint is nausea. She denies any shortness of breath or chest pain. OBJECTIVE: VITAL SIGNS: Today temperature is 99.6, pulse rate is 75, blood pressure is 171/61, respiratory rate is 20, oxygen saturation on room air is 93%. GENERAL: This is an is an elderly white female, who is obese with alopecia. She is very pale today, somewhat diaphoretic. She does not appear to be feeling very well today. She does have a peritoneal PleurX drain catheter in place that has a dressing over the top of her abdomen. She also has a wound VAC dressing to her coccyx. LUNGS: Sounds are clear in upper lobes, diminished throughout lower bases. HEART: Tones are distant, but regular rate and rhythm. No murmurs identified. ABDOMEN: Obese with a catheter in place. Dressing is dry and intact at this time. EXTREMITIES: She has some mild pedal edema on her ankles and feet. Full range of motion. No joint effusions noted. LABORATORY DATA: The patient has not had any lab work for quite some time. Blood sugars have been running variable at times. IMPRESSION AND PLAN: 1. Peritoneal carcinomatosis. The patient is followed by Dr. Collier in Oncology. She continues with PleurX abdominal drain that is dressings changed per nursing staff. 2. Left humeral head fracture. Plan: The patient has been seen by Dr. Singer in Orthopedics. Repeat x-rays have been obtained. For now, she just continues with an arm sling. She is not a surgical candidate. Seems to be healing somewhat. 3. Stage III pressure ulcer to coccyx. Plan: The patient did have debridement by Dr. Dixon about two weeks ago. We are going to continue with wound VAC at this time and seems to be healing somewhat. 4. UTI. Plan: UA shows many bacteria, Cipro 500 mg BID for 5 days. CBC shows WBC at 6.2 and HGB at 10.6. Chronic conditions: 5. History of gout. Plan: Continue with allopurinol 100 mg daily. 6. History of hypertension with coronary artery disease. Plan: Continue with baby aspirin 81 mg daily along with Lasix as ordered. Also, continue with losartan 25 mg daily and metoprolol tartrate 50 mg twice a day. 7. Chronic constipation. Plan: Continue with Colace, senna, and Movantik as ordered. 8. Diabetes mellitus type 2. Plan: Continue with blood sugar checks 4 times a day. I increased her Levemir to 40 units subcutaneous daily. I am going to place the patient on a low-dose sliding scale insulin to cover high blood sugars. Blood sugars have been running slightly high. 9. History of anemia. Plan: Continue with Niferex 150 mg daily. CBC is 10.6 today. 10.Yeast dermatitis to abdominal folds on her breasts. Continue with nystatin ointment as needed for this rash. 11.Gastroesophageal reflux disease. Plan: Continue with omeprazole 20 mg in the morning. 12.Pain. Plan: Continue with oxycodone ER 10 mg BID and also as needed. 13.History of depression. Plan: Continue with Zoloft 100 mg at bedtime. We will continue with Wellbutrin 150 mg daily. 14.History of hyperlipidemia. Plan: Continue with Zocor 40 mg daily. 15. Insomnia. Plan; Continue with Rozerem 8 mg at bedtime. . 16.Hypoalbuminemia. Plan: will monitor and give Albumin as needed. 17. Nausea. Plan: Zofran and Compazine are ordered as needed. OVERALL PLAN: UA shows many bacteria, treat with Cipro 500 mg BID for 5 days. CBC and CMP are okay for now. /[id number]/MODL MTDD
[2017-12-20] MEDS ORDERED: Insulin Detemir 100 Units/ML 3 ML Pen SUBCUT ONE (13:00)
[2017-12-20] MEDS: Insulin Aspart 100 Units/ML 3 ML Pen SUBCUT SCH ×2 (14:11→19:04)
[2017-12-20] MEDS: Ciprofloxacin 500 MG Tab PO SCH ×2 (14:39→20:00)
[2017-12-20] MEDS: oxyCODONE 5 MG Tab PO PRN (16:47)
[2017-12-20] MEDS: Aspirin 81 MG Tab.EC PO SCH (20:00)
[2017-12-20] MEDS: Simvastatin 20 MG Tab PO SCH (20:01)
[2017-12-20] MEDS: Sertraline 50 MG Tab PO SCH (20:01)
[2017-12-21] MEDS: Bisacodyl 10 MG Supp RECTAL ONE ×2 (04:12→04:17)
[2017-12-21] MEDS: Omeprazole 20 MG Cap.CR PO SCH ×2 (06:04→17:16)
[2017-12-21] MEDS: Acetaminophen 500 MG Tab PO SCH ×3 (06:04→22:00)
[2017-12-21] MEDS: Furosemide 20 MG Tab PO SCH ×2 (06:04→17:15)
[2017-12-21] MEDS: Insulin Aspart 100 Units/ML 3 ML Pen SUBCUT SCH ×3 (07:24→17:16)
[2017-12-21] MEDS: Ondansetron 4 MG Tab.DIS PO PRN (09:07)
[2017-12-21] MEDS: Diclofenac Sodium 1% Gel 100 GM Tube TOP SCH ×4 (09:12→20:23)
[2017-12-21] MEDS: Insulin Detemir 100 Units/ML 3 ML Pen SUBCUT SCH (09:14)
[2017-12-21] MEDS: Losartan 50 MG Tab PO SCH (09:48)
[2017-12-21] MEDS: Ciprofloxacin 500 MG Tab PO SCH ×2 (09:48→20:22)
[2017-12-21] MEDS: Naloxegol Oxalate 25 MG Tab PO SCH (09:48)
[2017-12-21] MEDS: buPROPion 150 MG Tab.ER PO SCH (09:48)
[2017-12-21] MEDS: Metoprolol Tartrate 50 MG Tab PO SCH ×2 (09:49→20:22)
[2017-12-21] MEDS: oxyCODONE ER 10 MG TAB.ER PO SCH ×2 (09:50→20:22)
[2017-12-21] MEDS: Allopurinol 100 MG Tab PO SCH (09:50)
[2017-12-21] MEDS: Docusate Sodium 100 MG Cap PO SCH (09:50)
[2017-12-21] MEDS: oxyCODONE 5 MG Tab PO PRN (11:13)
[2017-12-21] MEDS: Multivitamins with Minerals/Iron/Folic Acid/Lycopene Tab PO SCH (12:01)
[2017-12-21] MEDS: Iron Polysaccharides Complex 150 MG Cap PO SCH (12:01)
[2017-12-21] MEDS: Zinc (Zinc Gluconate) 50 MG Tab PO SCH (12:01)
[2017-12-21] MEDS: Aspirin 81 MG Tab.EC PO SCH (20:22)
[2017-12-21] MEDS: Simvastatin 20 MG Tab PO SCH (20:22)
[2017-12-21] MEDS: Sertraline 50 MG Tab PO SCH (20:23)
[2017-12-22] MEDS: Acetaminophen 500 MG Tab PO SCH ×3 (06:15→22:22)
[2017-12-22] MEDS: Omeprazole 20 MG Cap.CR PO SCH ×2 (06:15→16:21)
[2017-12-22] MEDS: Furosemide 20 MG Tab PO SCH (06:16)
[2017-12-22] MEDS: Docusate Sodium 100 MG Cap PO SCH (08:43)
[2017-12-22] MEDS: Metoprolol Tartrate 50 MG Tab PO SCH ×2 (08:43→20:05)
[2017-12-22] MEDS: Naloxegol Oxalate 25 MG Tab PO SCH (08:43)
[2017-12-22] MEDS: Ciprofloxacin 500 MG Tab PO SCH ×2 (08:43→20:01)
[2017-12-22] MEDS: Losartan 50 MG Tab PO SCH (08:43)
[2017-12-22] MEDS: Allopurinol 100 MG Tab PO SCH (08:44)
[2017-12-22] MEDS: oxyCODONE ER 10 MG TAB.ER PO SCH ×2 (08:44→20:00)
[2017-12-22] MEDS: Insulin Detemir 100 Units/ML 3 ML Pen SUBCUT SCH (08:45)
[2017-12-22] MEDS: buPROPion 150 MG Tab.ER PO SCH (10:30)
[2017-12-22] MEDS: Diclofenac Sodium 1% Gel 100 GM Tube TOP SCH ×4 (10:30→20:00)
[2017-12-22] MEDS: Zinc (Zinc Gluconate) 50 MG Tab PO SCH (12:13)
[2017-12-22] MEDS: Iron Polysaccharides Complex 150 MG Cap PO SCH (12:13)
[2017-12-22] MEDS: Multivitamins with Minerals/Iron/Folic Acid/Lycopene Tab PO SCH (12:13)
[2017-12-22] MEDS: oxyCODONE 5 MG Tab PO PRN (16:21)
[2017-12-22] MEDS: Simvastatin 20 MG Tab PO SCH (20:01)
[2017-12-22] MEDS: Sertraline 50 MG Tab PO SCH (20:01)
[2017-12-22] MEDS: Aspirin 81 MG Tab.EC PO SCH (20:01)
[2017-12-23] MEDS: Omeprazole 20 MG Cap.CR PO SCH ×2 (06:10→17:28)
[2017-12-23] MEDS: Furosemide 20 MG Tab PO SCH ×2 (06:10→16:48)
[2017-12-23] MEDS: Acetaminophen 500 MG Tab PO SCH ×2 (06:10→16:47)
[2017-12-23] MEDS: Insulin Detemir 100 Units/ML 3 ML Pen SUBCUT SCH (08:54)
[2017-12-23] MEDS: Ciprofloxacin 500 MG Tab PO SCH ×2 (08:57→20:52)
[2017-12-23] MEDS: Docusate Sodium 100 MG Cap PO SCH (08:57)
[2017-12-23] MEDS: buPROPion 150 MG Tab.ER PO SCH (08:58)
[2017-12-23] MEDS: Diclofenac Sodium 1% Gel 100 GM Tube TOP SCH ×4 (09:00→20:53)
[2017-12-23] MEDS: Naloxegol Oxalate 25 MG Tab PO SCH (09:00)
[2017-12-23] MEDS: Allopurinol 100 MG Tab PO SCH (09:00)
[2017-12-23] MEDS: oxyCODONE ER 10 MG TAB.ER PO SCH ×2 (09:03→20:52)
[2017-12-23] MEDS: Losartan 50 MG Tab PO SCH (09:05)
[2017-12-23] MEDS: Metoprolol Tartrate 50 MG Tab PO SCH ×2 (09:06→20:58)
[2017-12-23] MEDS: Iron Polysaccharides Complex 150 MG Cap PO SCH (12:19)
[2017-12-23] MEDS: Zinc (Zinc Gluconate) 50 MG Tab PO SCH (12:19)
[2017-12-23] MEDS: Multivitamins with Minerals/Iron/Folic Acid/Lycopene Tab PO SCH (12:19)
[2017-12-23] MEDS: Sertraline 50 MG Tab PO SCH (20:52)
[2017-12-23] MEDS: Simvastatin 20 MG Tab PO SCH (20:52)
[2017-12-23] MEDS: Aspirin 81 MG Tab.EC PO SCH (20:52)
[2017-12-24] MEDS: Acetaminophen 500 MG Tab PO SCH ×4 (01:05→22:28)
[2017-12-24] MEDS: Omeprazole 20 MG Cap.CR PO SCH ×2 (05:45→17:46)
[2017-12-24] MEDS: Furosemide 20 MG Tab PO SCH (06:24)
[2017-12-24] MEDS: Insulin Detemir 100 Units/ML 3 ML Pen SUBCUT SCH (08:45)
[2017-12-24] MEDS: Diclofenac Sodium 1% Gel 100 GM Tube TOP SCH ×4 (08:50→21:07)
[2017-12-24] MEDS: buPROPion 150 MG Tab.ER PO SCH (08:50)
[2017-12-24] MEDS: Ciprofloxacin 500 MG Tab PO SCH ×2 (08:51→21:04)
[2017-12-24] MEDS: Metoprolol Tartrate 50 MG Tab PO SCH ×2 (08:51→21:04)
[2017-12-24] MEDS: Docusate Sodium 100 MG Cap PO SCH (08:51)
[2017-12-24] MEDS: Allopurinol 100 MG Tab PO SCH (08:52)
[2017-12-24] MEDS: Losartan 50 MG Tab PO SCH (08:52)
[2017-12-24] MEDS: Naloxegol Oxalate 25 MG Tab PO SCH (08:52)
[2017-12-24] MEDS: Nystatin Ointment 15 GM Tube TOP PRN (09:13)
[2017-12-24] MEDS: oxyCODONE ER 10 MG TAB.ER PO SCH ×2 (09:15→21:04)
[2017-12-24] MEDS: Polyethylene Glycol 3350 Powder 17 GM Packet PO PRN (11:49)
[2017-12-24] MEDS: Zinc (Zinc Gluconate) 50 MG Tab PO SCH (11:51)
[2017-12-24] MEDS: Iron Polysaccharides Complex 150 MG Cap PO SCH (11:51)
[2017-12-24] MEDS: Multivitamins with Minerals/Iron/Folic Acid/Lycopene Tab PO SCH (11:51)
[2017-12-24] MEDS: Simvastatin 20 MG Tab PO SCH (21:03)
[2017-12-24] MEDS: Aspirin 81 MG Tab.EC PO SCH (21:04)
[2017-12-24] MEDS: Sertraline 50 MG Tab PO SCH (21:05)
[2017-12-25] MEDS: oxyCODONE 5 MG Tab PO PRN ×2 (01:52→19:38)
[2017-12-25] MEDS: Omeprazole 20 MG Cap.CR PO SCH ×2 (05:46→18:03)
[2017-12-25] MEDS: Furosemide 20 MG Tab PO SCH ×2 (06:40→15:41)
[2017-12-25] MEDS: Acetaminophen 500 MG Tab PO SCH ×2 (06:40→15:41)
[2017-12-25] MEDS: Docusate Sodium 100 MG Cap PO SCH (08:57)
[2017-12-25] MEDS: Losartan 50 MG Tab PO SCH (08:57)
[2017-12-25] MEDS: Insulin Detemir 100 Units/ML 3 ML Pen SUBCUT SCH (08:57)
[2017-12-25] MEDS: Naloxegol Oxalate 25 MG Tab PO SCH (08:58)
[2017-12-25] MEDS: Metoprolol Tartrate 50 MG Tab PO SCH ×2 (08:58→20:12)
[2017-12-25] MEDS: oxyCODONE ER 10 MG TAB.ER PO SCH ×2 (08:59→20:09)
[2017-12-25] MEDS: Diclofenac Sodium 1% Gel 100 GM Tube TOP SCH ×4 (08:59→20:00)
[2017-12-25] MEDS: buPROPion 150 MG Tab.ER PO SCH (09:00)
[2017-12-25] MEDS: Allopurinol 100 MG Tab PO SCH (09:00)
[2017-12-25] MEDS: Multivitamins with Minerals/Iron/Folic Acid/Lycopene Tab PO SCH (12:29)
[2017-12-25] MEDS: Zinc (Zinc Gluconate) 50 MG Tab PO SCH (12:29)
[2017-12-25] MEDS: Iron Polysaccharides Complex 150 MG Cap PO SCH (12:29)
[2017-12-25] MEDS: Nystatin Ointment 15 GM Tube TOP PRN ×2 (12:30→19:58)
[2017-12-25] MEDS: Aspirin 81 MG Tab.EC PO SCH (20:06)
[2017-12-25] MEDS: Simvastatin 20 MG Tab PO SCH (20:06)
[2017-12-25] MEDS: Sertraline 50 MG Tab PO SCH (20:06)
[2017-12-26] MEDS: Acetaminophen 500 MG Tab PO SCH ×5 (00:21→23:52)
[2017-12-26] MEDS: Omeprazole 20 MG Cap.CR PO SCH ×2 (05:58→17:41)
[2017-12-26] MEDS: Nystatin Ointment 15 GM Tube TOP PRN ×2 (06:14→08:19)
[2017-12-26] MEDS: Furosemide 20 MG Tab PO SCH ×2 (06:19→15:00)
[2017-12-26] MEDS: Diclofenac Sodium 1% Gel 100 GM Tube TOP SCH ×5 (08:19→20:00)
[2017-12-26] MEDS: Insulin Detemir 100 Units/ML 3 ML Pen SUBCUT SCH (08:19)
[2017-12-26] MEDS: Docusate Sodium 100 MG Cap PO SCH (08:20)
[2017-12-26] MEDS: buPROPion 150 MG Tab.ER PO SCH (08:21)
[2017-12-26] MEDS: Naloxegol Oxalate 25 MG Tab PO SCH (08:22)
[2017-12-26] MEDS: Allopurinol 100 MG Tab PO SCH (08:22)
[2017-12-26] MEDS: Metoprolol Tartrate 50 MG Tab PO SCH ×2 (08:22→20:01)
[2017-12-26] MEDS: Losartan 50 MG Tab PO SCH (08:25)
[2017-12-26] MEDS: oxyCODONE ER 10 MG TAB.ER PO SCH ×2 (09:20→20:01)
[2017-12-26] MEDS: Zinc (Zinc Gluconate) 50 MG Tab PO SCH (11:41)
[2017-12-26] MEDS: Iron Polysaccharides Complex 150 MG Cap PO SCH (11:41)
[2017-12-26] MEDS: Multivitamins with Minerals/Iron/Folic Acid/Lycopene Tab PO SCH (11:41)
[2017-12-26] MEDS: Sertraline 50 MG Tab PO SCH (20:00)
[2017-12-26] MEDS: Nystatin Ointment 15 GM Tube TOP SCH (20:00)
[2017-12-26] MEDS: Aspirin 81 MG Tab.EC PO SCH (20:01)
[2017-12-26] MEDS: Simvastatin 20 MG Tab PO SCH (20:01)
[2017-12-27] MEDS: oxyCODONE 5 MG Tab PO PRN ×2 (05:55→16:50)
[2017-12-27] MEDS: Omeprazole 20 MG Cap.CR PO SCH ×2 (05:55→16:50)
[2017-12-27] MEDS: Acetaminophen 500 MG Tab PO SCH ×2 (06:21→15:05)
[2017-12-27] MEDS: Furosemide 20 MG Tab PO SCH (06:21)
[2017-12-27] MEDS: buPROPion 150 MG Tab.ER PO SCH (08:00)
[2017-12-27] MEDS: Docusate Sodium 100 MG Cap PO SCH (08:01)
[2017-12-27] MEDS: Metoprolol Tartrate 50 MG Tab PO SCH ×2 (08:01→20:47)
[2017-12-27] MEDS: Losartan 50 MG Tab PO SCH (08:02)
[2017-12-27] MEDS: Allopurinol 100 MG Tab PO SCH (08:04)
[2017-12-27] MEDS: Naloxegol Oxalate 25 MG Tab PO SCH (08:04)
[2017-12-27] MEDS: Insulin Detemir 100 Units/ML 3 ML Pen SUBCUT SCH (08:04)
[2017-12-27] MEDS: Diclofenac Sodium 1% Gel 100 GM Tube TOP SCH ×4 (08:05→20:40)
[2017-12-27] MEDS: oxyCODONE ER 10 MG TAB.ER PO SCH ×2 (08:05→20:46)
[2017-12-27] MEDS: Nystatin Ointment 15 GM Tube TOP SCH ×2 (08:06→20:47)
[2017-12-27] MEDS: Zinc (Zinc Gluconate) 50 MG Tab PO SCH (11:35)
[2017-12-27] MEDS: Multivitamins with Minerals/Iron/Folic Acid/Lycopene Tab PO SCH (11:36)
[2017-12-27] MEDS: Iron Polysaccharides Complex 150 MG Cap PO SCH (11:36)
[2017-12-27] MEDS: Aspirin 81 MG Tab.EC PO SCH (20:46)
[2017-12-27] MEDS: Sertraline 50 MG Tab PO SCH (20:48)
[2017-12-27] MEDS: Simvastatin 20 MG Tab PO SCH (20:48)
[2017-12-28] MEDS: Acetaminophen 500 MG Tab PO SCH ×4 (01:39→23:15)
[2017-12-28] MEDS: Omeprazole 20 MG Cap.CR PO SCH ×2 (06:24→17:09)
[2017-12-28] MEDS: Furosemide 20 MG Tab PO SCH ×2 (06:24→14:03)
[2017-12-28] MEDS: Losartan 50 MG Tab PO SCH ×2 (06:50→08:05)
[2017-12-28] MEDS: Metoprolol Tartrate 50 MG Tab PO SCH ×3 (06:51→20:28)
[2017-12-28] MEDS: Iron Polysaccharides Complex 150 MG Cap PO SCH (08:03)
[2017-12-28] MEDS: Multivitamins with Minerals/Iron/Folic Acid/Lycopene Tab PO SCH (08:03)
[2017-12-28] MEDS: Allopurinol 100 MG Tab PO SCH (08:03)
[2017-12-28] MEDS: Zinc (Zinc Gluconate) 50 MG Tab PO SCH (08:03)
[2017-12-28] MEDS: oxyCODONE ER 10 MG TAB.ER PO SCH ×2 (08:03→20:25)
[2017-12-28] MEDS: buPROPion 150 MG Tab.ER PO SCH (08:03)
[2017-12-28] MEDS: Naloxegol Oxalate 25 MG Tab PO SCH (08:04)
[2017-12-28] MEDS: Docusate Sodium 100 MG Cap PO SCH (08:04)
[2017-12-28] MEDS: Insulin Detemir 100 Units/ML 3 ML Pen SUBCUT SCH (08:04)
[2017-12-28] MEDS: Nystatin Ointment 15 GM Tube TOP SCH ×2 (09:04→20:28)
[2017-12-28] MEDS: Diclofenac Sodium 1% Gel 100 GM Tube TOP SCH ×4 (09:04→20:26)
--- NOTE | 2017-12-28 10:22 | PCM.PN ---
- General Info Date of Service: 12/28/17 Functional Status: Reports: Pain Controlled, Tolerating Diet. Denies: New Symptoms - Review of Systems General: Reports: Weakness Pulmonary: Reports: No Symptoms Cardiovascular: Reports: No Symptoms Gastrointestinal: Reports: No Symptoms Genitourinary: Reports: Other (Frequent urination) Skin: Reports: Other (Coccyx wound ongoing) Neurological: Denies: Confusion Psychiatric: Reports: No Symptoms - Patient Data Vitals - Most Recent: Last Vital Signs Temp 98.2 F 12/28/17 07:00 Pulse 72 12/28/17 09:48 Resp 18 12/28/17 09:48 BP 131/62 12/28/17 08:09 Pulse Ox 95 12/28/17 09:48 Weight - Most Recent: 209 lb 4 oz I&O - Last 24 Hours: Intake & Output 12/27/17 12/28/17 12/28/17 22:59 06:59 14:59 Intake Total 690 0 Balance 690 0 Lab Results Last 24 Hours: Laboratory Results - last 24 hr 12/27/17 12/28/17 Range/Units 17:13 06:34 POC Glucose 214 H 118 H (74-106) mg/dl Med Orders - Current: Current Medications Acetaminophen (Tylenol Extra Strength) 1,000 mg PO Q8H [facility] Last Admin: 12/28/17 06:24 Dose: 1,000 mg Allopurinol (Zyloprim) 100 mg PO DAILY [facility] Last Admin: 12/28/17 08:03 Dose: 100 mg Aspirin (Halfprin) 81 mg PO BEDTIME [facility] Last Admin: 12/27/17 20:46 Dose: 81 mg Bupropion HCl (Wellbutrin Xl) 150 mg PO DAILY [facility] Last Admin: 12/28/17 08:03 Dose: 150 mg Diclofenac Sodium (Voltaren 1% Gel) 1 gm TOP QID [facility] Last Admin: 12/28/17 09:04 Dose: 1 applic Docusate Sodium (Colace) 100 mg PO DAILY [facility] Last Admin: 12/28/17 08:04 Dose: 100 mg Furosemide (Lasix) 20 mg PO SuTuThSa@1500 [facility] Last Admin: 12/26/17 15:00 Dose: 20 mg Furosemide (Lasix) 20 mg PO DAILY@0700 [facility] Last Admin: 12/28/17 06:24 Dose: 20 mg Insulin Detemir (Levemir) 40 unit SUBCUT DAILY [facility] Last Admin: 12/28/17 08:04 Dose: 40 units Losartan Potassium (Cozaar) 75 mg PO DAILY [facility] Last Admin: 12/28/17 08:05 Dose: Not Given Magnesium Hydroxide (Milk Of Magnesia) 30 ml PO DAILY PRN PRN Reason: Constipation Last Admin: 10/26/17 09:10 Dose: 30 ml Metoprolol Tartrate (Lopressor) 50 mg PO BID [facility] Last Admin: 12/28/17 08:05 Dose: Not Given Multivitamins/Minerals (Centrum) 1 tab PO DAILY [facility] Last Admin: 12/28/17 08:03 Dose: 1 tab Naloxegol (Movantik) 25 mg PO DAILY [facility] Last Admin: 12/28/17 08:04 Dose: 25 mg Nystatin (Nystatin Ointment) 1 gm TOP BID [facility] Last Admin: 12/28/17 09:04 Dose: 1 applic Omeprazole (Omeprazole) 20 mg PO DAILY@0600,1700 [facility] Last Admin: 12/28/17 06:24 Dose: 20 mg Ondansetron HCl (Zofran Odt) 8 mg PO TID PRN PRN Reason: nausea or vomitting Last Admin: 12/21/17 09:07 Dose: 8 mg Oxycodone HCl (Oxycodone) 5 mg PO Q6H PRN PRN Reason: Pain Last Admin: 12/27/17 16:50 Dose: 5 mg Oxycodone HCl (Oxycontin) 10 mg PO Q12H [facility] Last Admin: 12/28/17 08:03 Dose: 10 mg Polyethylene Glycol (Miralax) 17 gm PO DAILY PRN PRN Reason: Constipation Last Admin: 12/24/17 11:49 Dose: 17 gm Polysaccharide Iron Complex (Ferrex 150) 150 mg PO DAILY [facility] Last Admin: 12/28/17 08:03 Dose: 150 mg Prochlorperazine Maleate (Compazine) 10 mg PO QID PRN PRN Reason: Nausea Last Admin: 12/20/17 08:04 Dose: 10 mg Ramelteon (Rozerem) 8 mg PO BEDTIME [facility] Last Admin: 12/27/17 20:48 Dose: 8 mg Sertraline HCl (Zoloft) 100 mg PO BEDTIME [facility] Last Admin: 12/27/17 20:48 Dose: 100 mg Simvastatin (Zocor) 40 mg PO BEDTIME [facility] Last Admin: 12/27/17 20:48 Dose: 40 mg Zinc Gluconate (Zinc) 50 mg PO DAILY [facility] Last Admin: 12/28/17 08:03 Dose: 50 mg Discontinued Medications Acetaminophen (Tylenol Extra Strength) 1,000 mg PO Q8H [facility] Last Admin: 10/23/17 02:00 Dose: 1,000 mg Acetaminophen (Tylenol Extra Strength) 1,000 mg PO Q8H [facility] Last Admin: 11/22/17 15:12 Dose: 1,000 mg Acetaminophen (Tylenol) Confirm Administered Dose 975 mg .ROUTE .[facility] ONE Stop: 11/08/17 07:36 Last Admin: 11/08/17 08:28 Dose: 975 mg Hydrocodone Bitart/Acetaminophen ([place] 325-5 Mg) 1 - 2 tab PO Q4H PRN PRN Reason: Moderate Pain Last Admin: 10/24/17 19:26 Dose: 1 tab Bacitracin (Bacitracin Oint) 1 gm TOP DAILY PRN PRN Reason: Rash Bisacodyl (Dulcolax) 10 mg RECTAL ONETIME ONE Stop: 12/21/17 04:02 Last Admin: 12/21/17 04:17 Dose: Not Given Calcium Carbonate/Glycine (Tums) 500 mg PO TID PRN PRN Reason: Indigestion Ciprofloxacin (Ciprofloxacin Hcl) 500 mg PO BID [facility] Stop: 12/24/17 21:01 Last Admin: 12/24/17 21:04 Dose: 500 mg Al Hydroxide/Mg Hydroxide 40 ml/ Diphenhydramine HCl 12.5 mg/ Lidocaine HCl 40 ml 0 ml PO TID PRN PRN Reason: mouth sores/burning Last Admin: 10/28/17 08:11 Dose: 10 ml Cranberry (Azo Cranberry) 1 each PO BEDTIME [facility] Last Admin: 11/07/17 21:46 Dose: Not Given Furosemide (Lasix) 20 mg PO DAILY [facility] Last Admin: 12/13/17 09:25 Dose: 20 mg Furosemide (Lasix) 20 mg PO SUTUTHSA@1700 [facility] Last Admin: 12/12/17 16:01 Dose: 20 mg Heparin Sodium (Porcine) (Heparin Lock Flush 100 Units/Ml) 500 units FLUSH ASDIRECTED PRN PRN Reason: Other Cefepime HCl 1 gm/ Sodium (Chloride) 50 mls @ 100 mls/hr IV Q8H [facility] Last Admin: 11/01/17 18:52 Dose: Not Given Cefepime HCl 1 gm/ Sodium (Chloride) 50 mls @ 100 mls/hr IV Q24H [facility] Last Admin: 11/07/17 20:32 Dose: 100 mls/hr Sodium Chloride (Normal Saline) Confirm Administered Dose 50 mls @ as directed .ROUTE .[facility] ONE Stop: 11/02/17 22:10 Last Admin: 11/02/17 23:15 Dose: 100 mls/hr Sodium Chloride (Normal Saline) Confirm Administered Dose 50 mls @ as directed .ROUTE .[facility] ONE Stop: 11/03/17 21:46 Last Admin: 11/03/17 21:56 Dose: Not Given Sodium Chloride (Normal Saline) 50 mls @ 50 mls/hr IV ASDIRECTED [facility] Albumin Human (Flexbumin 25%) 100 mls @ 50 mls/hr IV ONETIME ONE Stop: 11/22/17 13:59 Last Admin: 11/22/17 13:07 Dose: 50 mls/hr Sodium Chloride (Normal Saline) 250 mls @ 125 mls/hr IV ASDIRECTED [facility] Stop: 11/22/17 21:00 Last Admin: 11/22/17 15:40 Dose: 125 mls/hr Ciprofloxacin/Dextrose (Cipro In D5w 400 Mg/200 Ml) 200 mls @ 200 mls/hr IV Q12H [facility] Last Admin: 11/26/17 06:13 Dose: 200 mls/hr Sodium Chloride (Normal Saline) Confirm Administered Dose 100 mls @ as directed .ROUTE .[facility] ONE Stop: 11/22/17 20:04 Last Admin: 11/22/17 20:05 Dose: 100 mls/hr Sodium Chloride (Normal Saline) 100 mls @ 200 mls/hr IV ASDIRECTED [facility] Sodium Chloride (Normal Saline) 100 mls @ 20 mls/hr IV DAILY@1900 [facility] Last Admin: 11/25/17 18:08 Dose: 20 mls/hr Insulin Aspart (Novolog) 0 unit SUBCUT WITHMEALSANDBED [facility]; Protocol Stop: 10/31/17 00:00 Last Admin: 10/30/17 21:02 Dose: 5 units Insulin Aspart (Novolog) 2 unit SUBCUT ONETIME ONE Stop: 10/31/17 20:59 Last Admin: 10/31/17 21:07 Dose: 2 units Insulin Aspart (Novolog) 10 unit SUBCUT ONETIME ONE Stop: 11/12/17 17:44 Last Admin: 11/12/17 18:06 Dose: 10 units Insulin Aspart (Novolog) 0 unit SUBCUT TIDMEALS [facility]; Protocol Last Admin: 12/21/17 17:16 Dose: Not Given Insulin Detemir (Levemir) 44 unit SUBCUT DAILY [facility] Last Admin: 10/30/17 10:10 Dose: Not Given Insulin Detemir (Levemir) 40 unit SUBCUT DAILY [facility] Last Admin: 11/14/17 08:22 Dose: 40 units Insulin Detemir (Levemir) 44 unit SUBCUT DAILY [facility] Last Admin: 11/29/17 11:32 Dose: Not Given Insulin Detemir (Levemir) 34 unit SUBCUT DAILY [facility] Last Admin: 12/02/17 10:11 Dose: Not Given Insulin Detemir (Levemir) 30 unit SUBCUT DAILY [facility] Last Admin: 12/20/17 08:02 Dose: 30 units Insulin Detemir (Levemir) 10 unit SUBCUT ONETIME ONE Stop: 12/20/17 13:01 Last Admin: 12/20/17 14:38 Dose: 10 units Lidocaine/Epinephrine (Xylocaine 1% With Epinephrine 1:100,000) 3 ml INJECT ONETIME ONE Stop: 11/05/17 09:01 Last Admin: 11/05/17 09:00 Dose: 3 ml Loperamide HCl (Imodium) 2 mg PO ASDIRECTED PRN PRN Reason: Diarrhea Last Admin: 11/30/17 05:53 Dose: 2 mg Lorazepam (Ativan) 0.25 mg PO Q8H PRN PRN Reason: Anxiety Last Admin: 12/13/17 18:03 Dose: 0.25 mg Losartan Potassium (Cozaar) 25 mg PO DAILY [facility] Last Admin: 11/27/17 09:05 Dose: 25 mg Losartan Potassium (Cozaar) 50 mg PO DAILY [facility] Last Admin: 12/25/17 08:57 Dose: 50 mg Multivitamins/Minerals (Centrum) 1 tab PO DAILY [facility] Last Admin: 12/20/17 08:03 Dose: 1 tab Multivitamins/Minerals (Centrum) 1 tab PO DAILY@1200 [facility] Last Admin: 12/27/17 11:36 Dose: 1 tab Mupirocin (Bactroban Crm) 1 gm TOP TID [facility] Last Admin: 10/29/17 11:29 Dose: Not Given Mupirocin (Bactroban Oint) 0 gm TOP DAILY [facility] Last Admin: 12/06/17 10:12 Dose: 1 applic Insulin Degludec ( (Tresiba) 44units) 44 units SUBCUT DAILY [facility] Nystatin (Nystop) 0 gm TOP BID [facility] Last Admin: 10/25/17 08:58 Dose: 1 applic Nystatin (Nystop) 0 gm TOP TID [facility] Last Admin: 10/26/17 11:15 Dose: Not Given Nystatin (Nystatin Ointment) 0 gm TOP TID [facility] Last Admin: 11/04/17 15:49 Dose: Not Given Nystatin (Nystatin Ointment) 1 gm TOP DAILY PRN PRN Reason: Rash Last Admin: 12/26/17 08:19 Dose: 1 applic Olanzapine (Zyprexa) 10 mg PO ASDIRECTED [facility] Olanzapine (Zyprexa) 10 mg PO BEDTIME [facility] Stop: 11/14/17 21:01 Last Admin: 11/14/17 21:28 Dose: 10 mg Olanzapine (Zyprexa) 10 mg PO BEDTIME [facility] Stop: 11/22/17 21:01 Last Admin: 11/22/17 21:41 Dose: 10 mg Omeprazole (Omeprazole) 20 mg PO SUTUTHSA@2100 [facility] Last Admin: 10/23/17 21:24 Dose: 20 mg Omeprazole (Omeprazole) 20 mg PO DAILY@2100 [facility] Last Admin: 12/11/17 20:18 Dose: 20 mg Omeprazole (Omeprazole) 20 mg PO BID [facility] Last Admin: 12/13/17 09:27 Dose: 20 mg Omeprazole (Omeprazole) 20 mg PO BIDAC [facility] Last Admin: 12/17/17 16:45 Dose: 20 mg Oxycodone HCl (Oxycodone) 5 mg PO Q6H [facility] Last Admin: 10/23/17 06:11 Dose: 5 mg Oxycodone HCl (Oxycodone) 5 mg PO Q6H [facility] Last Admin: 10/24/17 06:21 Dose: Not Given Oxycodone HCl (Oxycodone) 5 mg PO BEDTIME [facility] Last Admin: 12/07/17 20:02 Dose: 5 mg Oxycodone HCl (Oxycodone) 5 mg PO ONETIME ONE Stop: 11/23/17 18:12 Last Admin: 11/23/17 18:48 Dose: 5 mg Oxycodone HCl (Oxycodone) 7.5 mg PO BEDTIME [facility]A Stop: 12/13/17 23:00 Last Admin: 12/13/17 20:05 Dose: 7.5 mg Oxycodone HCl (Oxycodone) 5 mg PO ONETIME ONE Stop: 12/13/17 17:59 Last Admin: 12/13/17 18:21 Dose: 5 mg Polysaccharide Iron Complex (Ferrex 150) 150 mg PO DAILY [facility] Last Admin: 12/20/17 08:05 Dose: 150 mg Polysaccharide Iron Complex (Ferrex 150) 150 mg PO DAILY@1200 [facility] Last Admin: 12/27/17 11:36 Dose: 150 mg Prochlorperazine Maleate (Compazine) 10 mg PO QID PRN PRN Reason: Nausea Senna/Docusate Sodium (Senna Plus) 1 tab PO BID PRN PRN Reason: Constipation Last Admin: 10/28/17 08:08 Dose: 1 tab Senna/Docusate Sodium (Senna Plus) 1 tab PO BID [facility] Last Admin: 11/04/17 15:49 Dose: Not Given Senna/Docusate Sodium (Senna Plus) 1 - 2 tab PO DAILY PRN PRN Reason: Constipation Sodium Chloride ([place] Nasal [place]) 1 ml ALDO QID PRN PRN Reason: Dryness Last Admin: 11/12/17 21:03 Dose: 1 spray Sodium Chloride (Normal Saline) 20 ml FLUSH ASDIRECTED PRN PRN Reason: Other Sodium Chloride (Saline Flush) 20 ml FLUSH Q8H [facility] Last Admin: 11/02/17 10:46 Dose: Not Given Sodium Chloride (Saline Flush) 20 ml FLUSH Q8H [facility] Last Admin: 11/11/17 12:20 Dose: Not Given Zinc Gluconate (Zinc) 50 mg PO DAILY [facility] Last Admin: 12/20/17 08:05 Dose: 50 mg Zinc Gluconate (Zinc) 50 mg PO DAILY@1200 [facility] Last Admin: 12/27/17 11:35 Dose: 50 mg - Exam Quality Assessment: No: Supplemental Oxygen General: Alert, Oriented Lungs: Clear to Auscultation (Female) Exam: Deferred Extremities: No Pedal Edema Skin: Other (Inspected coccyx wound today, ongoing healing with wound VAC, ongoing exudate however good granulated base) Wound/Incisions: Drainage, Decubitis Neurological: Normal Speech Psy/Mental Status: Alert - Problem List Review Problem List Initiated/Reviewed/Updated: Yes - My Orders Last 24 Hours: My Active Orders 12/28/17 09:00 Zinc Gluconate [Zinc] 50 mg PO DAILY - Plan Plan:: HPI: This is a 76 year old female who had previously been in swing bed status due to a left humeral fracture and deconditioning. The patient has been recently diagnosed with peritoneal carcinomatosis. The patient was sent up to [facility] on 10/20/17 for abdominal paracentesis and pleurx catheter placement. She had labs done that day which showed a hemoglobin of 6.5. She was then admitted to their hospitalist services. She was given 2 units of PRBCs. She was due for her second cycle of carboplatin and taxol while there and this was completed on 10/21/17. She was also given Neulasta prior to discharge. She has been tolerating her treatment well and has been changed from a weekly protocol to every 3 week protocol. The patient was admitted back to swing bed status for rehabilitation of her fracture and deconditioning. PRIMARY ASSESSMENT/PLAN: Update on rounds, vision doing well, ongoing wound VAC, inspected wound today, some exudate, positive signs of healing with good granulated base noted, no odor. Stage IV pressure ulcer to coccyx, POA, ongoing wound VAC therapy, appears to be healing well, Off loading. Nutritional support, Deconditioning. ongoing physical therapy, pain control prior to PT. Left humeral head fracture. Continue with sling and swath. She was seen by Dr. Singer, orthopedist, on 10/18/17 and it was advised for conservative management to include sling and swath for 6 weeks followed by aggressive therapy for range of motion and strengthening. HTN, Continue lopressor recent ARB increased to 75 mg by mouth daily--improved Immunocompromised host. Malignant ascites. pleurx catheter. Anemia due to antineoplastic chemotherapy. Hgb 11.8. Constipation. Continue movantik however increase senna. SECONDARY ASSESSMENT/PLAN: Primary peritoneal carcinomatosis. Followed by Dr. Collier/oncology with ongoing Pleurx abdominal drain. History of endometrial cancer, s/p hysterceomty 2009. CAD, no ischemic picture, stable Aortic stenosis. History of atrial flutter. Type 2 DM. Accuchecks daily. Tresiba switched to levemir daily due to not being available in house. CKD stage 3, stable. GFR 49, creatinine 0.55 Hyperlipidemia. Continue simvastatin. Obesity. Strip gout, allopurinol 100 mg daily. Diabetic retinopathy. Depression. Continue zoloft. GERD. Continue omeprazole. OAB. Osteoarthritis. History of hypercalcemia. Calcium 8.3 Recent Hypoalbuminemia now normalized at 3.2 DVT prophylaxis. Score of 6, Continue with phan stockings. Medical decision making; prior to wound VAC therapy patient's coccyx was in a nonhealing stage requiring surgical debridement, antibiotics, offloading with no signs of healing until a wound VAC was placed. Since wound VAC therapy has been initiated there has been ongoing progress regarding wound healing. Although there is no signs of infection patient is a significant immunocompromised host due to her cancer, recent chemotherapy, protein malnutrition, debility, obesity, with conconmittent left humeral shoulder fracture--attributed to patient being an immunocompromised host resulting in delayed wound healing without wound VAC therapy.
[2017-12-28] MEDS: oxyCODONE 5 MG Tab PO PRN (14:03)
[2017-12-28] MEDS: Aspirin 81 MG Tab.EC PO SCH (20:24)
[2017-12-28] MEDS: Sertraline 50 MG Tab PO SCH (20:25)
[2017-12-28] MEDS: Simvastatin 20 MG Tab PO SCH (20:25)
[2017-12-29] MEDS: Omeprazole 20 MG Cap.CR PO SCH ×2 (06:16→17:01)
[2017-12-29] MEDS: Furosemide 20 MG Tab PO SCH (06:16)
[2017-12-29] MEDS: Acetaminophen 500 MG Tab PO SCH ×2 (06:17→14:50)
[2017-12-29] MEDS: Diclofenac Sodium 1% Gel 100 GM Tube TOP SCH ×4 (08:07→20:37)
[2017-12-29] MEDS: Nystatin Ointment 15 GM Tube TOP SCH ×2 (08:07→20:40)
[2017-12-29] MEDS: Metoprolol Tartrate 50 MG Tab PO SCH ×2 (08:08→20:34)
[2017-12-29] MEDS: Docusate Sodium 100 MG Cap PO SCH (08:08)
[2017-12-29] MEDS: Insulin Detemir 100 Units/ML 3 ML Pen SUBCUT SCH (08:08)
[2017-12-29] MEDS: Losartan 50 MG Tab PO SCH (08:09)
[2017-12-29] MEDS: Zinc (Zinc Gluconate) 50 MG Tab PO SCH (08:10)
[2017-12-29] MEDS: Multivitamins with Minerals/Iron/Folic Acid/Lycopene Tab PO SCH (08:10)
[2017-12-29] MEDS: buPROPion 150 MG Tab.ER PO SCH (08:10)
[2017-12-29] MEDS: Naloxegol Oxalate 25 MG Tab PO SCH (08:10)
[2017-12-29] MEDS: Allopurinol 100 MG Tab PO SCH (08:10)
[2017-12-29] MEDS: Iron Polysaccharides Complex 150 MG Cap PO SCH (08:10)
[2017-12-29] MEDS: oxyCODONE ER 10 MG TAB.ER PO SCH ×2 (08:10→20:35)
[2017-12-29] MEDS: oxyCODONE 5 MG Tab PO PRN (09:04)
[2017-12-29] MEDS: Aspirin 81 MG Tab.EC PO SCH (20:34)
[2017-12-29] MEDS: Sertraline 50 MG Tab PO SCH (20:34)
[2017-12-29] MEDS: Simvastatin 20 MG Tab PO SCH (20:35)
[2017-12-30] MEDS: Acetaminophen 500 MG Tab PO SCH ×3 (01:54→16:16)
[2017-12-30] MEDS: Omeprazole 20 MG Cap.CR PO SCH ×2 (05:54→16:17)
[2017-12-30] MEDS: Furosemide 20 MG Tab PO SCH ×2 (06:22→16:16)
[2017-12-30] MEDS: oxyCODONE ER 10 MG TAB.ER PO SCH ×3 (07:45→21:02)
[2017-12-30] MEDS: Insulin Detemir 100 Units/ML 3 ML Pen SUBCUT SCH (08:07)
[2017-12-30] MEDS: Diclofenac Sodium 1% Gel 100 GM Tube TOP SCH ×4 (08:08→20:46)
[2017-12-30] MEDS: buPROPion 150 MG Tab.ER PO SCH (08:10)
[2017-12-30] MEDS: Nystatin Ointment 15 GM Tube TOP SCH ×2 (08:10→20:46)
[2017-12-30] MEDS: Allopurinol 100 MG Tab PO SCH (08:11)
[2017-12-30] MEDS: Docusate Sodium 100 MG Cap PO SCH (08:12)
[2017-12-30] MEDS: Multivitamins with Minerals/Iron/Folic Acid/Lycopene Tab PO SCH (08:12)
[2017-12-30] MEDS: Iron Polysaccharides Complex 150 MG Cap PO SCH (08:13)
[2017-12-30] MEDS: Naloxegol Oxalate 25 MG Tab PO SCH (08:13)
[2017-12-30] MEDS: Zinc (Zinc Gluconate) 50 MG Tab PO SCH (08:13)
[2017-12-30] MEDS: Metoprolol Tartrate 50 MG Tab PO SCH ×2 (08:14→20:45)
[2017-12-30] MEDS: Losartan 50 MG Tab PO SCH (08:14)
[2017-12-30] MEDS: oxyCODONE 5 MG Tab PO PRN (17:59)
[2017-12-30] MEDS: Prochlorperazine 5 MG Tab PO PRN (19:19)
[2017-12-30] MEDS: Aspirin 81 MG Tab.EC PO SCH (20:45)
[2017-12-30] MEDS: Sertraline 50 MG Tab PO SCH (20:45)
[2017-12-30] MEDS: Simvastatin 20 MG Tab PO SCH (20:45)
[2017-12-31] MEDS: Acetaminophen 500 MG Tab PO SCH ×4 (00:59→22:07)
[2017-12-31] MEDS: oxyCODONE 5 MG Tab PO PRN (05:47)
[2017-12-31] MEDS: Omeprazole 20 MG Cap.CR PO SCH ×2 (05:47→16:11)
[2017-12-31] MEDS: Furosemide 20 MG Tab PO SCH (07:12)
[2017-12-31] MEDS: Nystatin Ointment 15 GM Tube TOP SCH ×2 (08:02→20:29)
[2017-12-31] MEDS: Diclofenac Sodium 1% Gel 100 GM Tube TOP SCH ×4 (08:02→20:29)
[2017-12-31] MEDS: Insulin Detemir 100 Units/ML 3 ML Pen SUBCUT SCH (08:03)
[2017-12-31] MEDS: Naloxegol Oxalate 25 MG Tab PO SCH (08:05)
[2017-12-31] MEDS: Allopurinol 100 MG Tab PO SCH (08:05)
[2017-12-31] MEDS: Metoprolol Tartrate 50 MG Tab PO SCH ×2 (08:05→20:28)
[2017-12-31] MEDS: Docusate Sodium 100 MG Cap PO SCH (08:05)
[2017-12-31] MEDS: Zinc (Zinc Gluconate) 50 MG Tab PO SCH (08:05)
[2017-12-31] MEDS: buPROPion 150 MG Tab.ER PO SCH (08:06)
[2017-12-31] MEDS: Multivitamins with Minerals/Iron/Folic Acid/Lycopene Tab PO SCH (08:06)
[2017-12-31] MEDS: Losartan 50 MG Tab PO SCH (08:06)
[2017-12-31] MEDS: Iron Polysaccharides Complex 150 MG Cap PO SCH (08:06)
[2017-12-31 08:12] LABS: ANION GAP 12.5 mmol/L (5-15)
[2017-12-31] MEDS ORDERED: oxyCODONE ER 10 MG TAB.ER ONE (11:24)
[2017-12-31] MEDS: oxyCODONE ER 10 MG TAB.ER PO SCH ×3 (11:25→20:28)
[2017-12-31] MEDS: Ondansetron 4 MG Tab.DIS PO PRN (16:14)
[2017-12-31] MEDS: Simvastatin 20 MG Tab PO SCH (20:28)
[2017-12-31] MEDS: Aspirin 81 MG Tab.EC PO SCH (20:28)
[2017-12-31] MEDS: Sertraline 50 MG Tab PO SCH (20:28)
[2018-01-01] MEDS: Furosemide 20 MG Tab PO SCH ×2 (06:00→16:23)
[2018-01-01] MEDS: Omeprazole 20 MG Cap.CR PO SCH ×2 (06:00→16:25)
[2018-01-01] MEDS: Acetaminophen 500 MG Tab PO SCH ×3 (06:05→23:14)
[2018-01-01] MEDS: Diclofenac Sodium 1% Gel 100 GM Tube TOP SCH ×4 (09:04→21:24)
[2018-01-01] MEDS: Insulin Detemir 100 Units/ML 3 ML Pen SUBCUT SCH (09:07)
[2018-01-01] MEDS: Allopurinol 100 MG Tab PO SCH (09:11)
[2018-01-01] MEDS: buPROPion 150 MG Tab.ER PO SCH (09:11)
[2018-01-01] MEDS: Nystatin Ointment 15 GM Tube TOP SCH (09:12)
[2018-01-01] MEDS: Docusate Sodium 100 MG Cap PO SCH (09:12)
[2018-01-01] MEDS: Iron Polysaccharides Complex 150 MG Cap PO SCH (09:12)
[2018-01-01] MEDS: Multivitamins with Minerals/Iron/Folic Acid/Lycopene Tab PO SCH (09:12)
[2018-01-01] MEDS: Zinc (Zinc Gluconate) 50 MG Tab PO SCH (09:13)
[2018-01-01] MEDS: Naloxegol Oxalate 25 MG Tab PO SCH (09:13)
[2018-01-01] MEDS: oxyCODONE ER 10 MG TAB.ER PO SCH ×2 (09:18→21:27)
[2018-01-01] MEDS: Losartan 50 MG Tab PO SCH (10:13)
[2018-01-01] MEDS: Metoprolol Tartrate 50 MG Tab PO SCH ×2 (10:13→21:29)
[2018-01-01] MEDS ORDERED: Nystatin Ointment 15 GM Tube TOP PRN ×2 (11:58→11:59)
[2018-01-01] MEDS: Aspirin 81 MG Tab.EC PO SCH (21:22)
[2018-01-01] MEDS: Simvastatin 20 MG Tab PO SCH (21:23)
[2018-01-01] MEDS: Sertraline 50 MG Tab PO SCH (21:23)
[2018-01-02] MEDS: Acetaminophen 500 MG Tab PO SCH ×3 (06:04→23:50)
[2018-01-02] MEDS: Omeprazole 20 MG Cap.CR PO SCH ×2 (06:04→16:41)
[2018-01-02] MEDS: Furosemide 20 MG Tab PO SCH ×2 (06:04→15:09)
[2018-01-02] MEDS: oxyCODONE ER 10 MG TAB.ER PO SCH ×2 (09:53→20:47)
[2018-01-02] MEDS: Docusate Sodium 100 MG Cap PO SCH (09:54)
[2018-01-02] MEDS: buPROPion 150 MG Tab.ER PO SCH (09:54)
[2018-01-02] MEDS: Metoprolol Tartrate 50 MG Tab PO SCH ×2 (09:54→20:50)
[2018-01-02] MEDS: Naloxegol Oxalate 25 MG Tab PO SCH (09:54)
[2018-01-02] MEDS: Zinc (Zinc Gluconate) 50 MG Tab PO SCH (09:55)
[2018-01-02] MEDS: Allopurinol 100 MG Tab PO SCH (09:55)
[2018-01-02] MEDS: Losartan 50 MG Tab PO SCH (09:55)
[2018-01-02] MEDS: Multivitamins with Minerals/Iron/Folic Acid/Lycopene Tab PO SCH (09:55)
[2018-01-02] MEDS: Iron Polysaccharides Complex 150 MG Cap PO SCH (09:55)
[2018-01-02] MEDS: Insulin Detemir 100 Units/ML 3 ML Pen SUBCUT SCH (09:57)
[2018-01-02] MEDS: Diclofenac Sodium 1% Gel 100 GM Tube TOP SCH ×4 (09:57→20:48)
[2018-01-02] MEDS: Ondansetron 4 MG Tab.DIS PO PRN (10:38)
[2018-01-02] MEDS: Prochlorperazine 5 MG Tab PO PRN (16:41)
[2018-01-02] MEDS: Promethazine 25 MG/ML SDV IM PRN (18:21)
[2018-01-02] MEDS: Polyethylene Glycol 3350 Powder 17 GM Packet PO PRN (18:23)
[2018-01-02] MEDS: Aspirin 81 MG Tab.EC PO SCH (20:47)
[2018-01-02] MEDS: Simvastatin 20 MG Tab PO SCH (20:48)
[2018-01-02] MEDS: Sertraline 50 MG Tab PO SCH (20:48)
[2018-01-03] MEDS: Omeprazole 20 MG Cap.CR PO SCH ×2 (05:55→16:53)
[2018-01-03] MEDS: Acetaminophen 500 MG Tab PO SCH ×4 (05:56→23:27)
[2018-01-03] MEDS: Furosemide 20 MG Tab PO SCH ×2 (05:56→06:04)
[2018-01-03 07:55] LABS: ANION GAP 7.4 mmol/L (5-15)
[2018-01-03] MEDS: oxyCODONE ER 10 MG TAB.ER PO SCH ×2 (08:07→20:36)
[2018-01-03] MEDS: Insulin Detemir 100 Units/ML 3 ML Pen SUBCUT SCH (08:07)
[2018-01-03] MEDS: Allopurinol 100 MG Tab PO SCH (08:08)
[2018-01-03] MEDS: Losartan 50 MG Tab PO SCH (08:08)
[2018-01-03] MEDS: Naloxegol Oxalate 25 MG Tab PO SCH (08:08)
[2018-01-03] MEDS: Metoprolol Tartrate 50 MG Tab PO SCH ×2 (08:08→20:35)
[2018-01-03] MEDS: Docusate Sodium 100 MG Cap PO SCH (08:08)
[2018-01-03] MEDS: buPROPion 150 MG Tab.ER PO SCH (08:09)
[2018-01-03] MEDS: Iron Polysaccharides Complex 150 MG Cap PO SCH (08:09)
[2018-01-03] MEDS: Zinc (Zinc Gluconate) 50 MG Tab PO SCH (08:09)
[2018-01-03] MEDS: Multivitamins with Minerals/Iron/Folic Acid/Lycopene Tab PO SCH (08:09)
[2018-01-03] MEDS: Diclofenac Sodium 1% Gel 100 GM Tube TOP SCH ×4 (08:09→20:37)
[2018-01-03] MEDS: oxyCODONE 5 MG Tab PO PRN (18:26)
[2018-01-03] MEDS: Aspirin 81 MG Tab.EC PO SCH (20:35)
[2018-01-03] MEDS: Simvastatin 20 MG Tab PO SCH (20:37)
[2018-01-03] MEDS: Sertraline 50 MG Tab PO SCH (20:38)
[2018-01-04] MEDS: Furosemide 20 MG Tab PO SCH ×2 (07:07→15:39)
[2018-01-04] MEDS: Acetaminophen 500 MG Tab PO SCH ×3 (07:07→23:00)
[2018-01-04] MEDS: Omeprazole 20 MG Cap.CR PO SCH ×2 (07:07→17:38)
[2018-01-04] MEDS: Losartan 50 MG Tab PO SCH (08:25)
[2018-01-04] MEDS: Multivitamins with Minerals/Iron/Folic Acid/Lycopene Tab PO SCH (08:25)
[2018-01-04] MEDS: buPROPion 150 MG Tab.ER PO SCH (08:25)
[2018-01-04] MEDS: Docusate Sodium 100 MG Cap PO SCH (08:25)
[2018-01-04] MEDS: Iron Polysaccharides Complex 150 MG Cap PO SCH (08:25)
[2018-01-04] MEDS: Allopurinol 100 MG Tab PO SCH (08:26)
[2018-01-04] MEDS: Metoprolol Tartrate 50 MG Tab PO SCH ×2 (08:26→20:04)
[2018-01-04] MEDS: Naloxegol Oxalate 25 MG Tab PO SCH (08:26)
[2018-01-04] MEDS: Zinc (Zinc Gluconate) 50 MG Tab PO SCH (08:26)
[2018-01-04] MEDS: Insulin Detemir 100 Units/ML 3 ML Pen SUBCUT SCH (08:31)
[2018-01-04] MEDS: oxyCODONE ER 10 MG TAB.ER PO SCH ×2 (08:31→20:03)
[2018-01-04] MEDS: Diclofenac Sodium 1% Gel 100 GM Tube TOP SCH ×4 (08:32→20:03)
--- NOTE | 2018-01-04 10:33 | PCM.PN ---
- General Info Date of Service: 01/04/18 Functional Status: Reports: Pain Controlled, Tolerating Diet. Denies: Ambulating, New Symptoms - Review of Systems General: Denies: Weakness HEENT: Reports: No Symptoms Pulmonary: Reports: No Symptoms Cardiovascular: Reports: No Symptoms Gastrointestinal: Reports: Nausea (Her nausea is quite variable). Denies: Vomiting Genitourinary: Reports: No Symptoms Musculoskeletal: Denies: Neck Pain, Shoulder Pain, Foot Pain, Joint Pain Skin: Reports: Other (Ongoing VAC therapy due to sacral area) Neurological: Reports: Pre-Existing Deficit, Difficulty Walking, Weakness Psychiatric: Reports: No Symptoms - Patient Data Vitals - Most Recent: Last Vital Signs Temp 97.9 F 01/04/18 06:53 Pulse 76 01/04/18 08:26 Resp 16 01/04/18 06:53 BP 136/69 01/04/18 08:26 Pulse Ox 98 01/04/18 06:53 Weight - Most Recent: 209 lb I&O - Last 24 Hours: Intake & Output 01/03/18 01/04/18 01/04/18 22:59 06:59 14:59 Intake Total 400 50 Output Total 200 500 Balance 200 -450 Lab Results Last 24 Hours: Laboratory Results - last 24 hr 01/03/18 01/04/18 Range/Units 17:58 06:47 POC Glucose 198 H 125 H (74-106) mg/dl Med Orders - Current: Current Medications Acetaminophen (Tylenol Extra Strength) 1,000 mg PO Q8H [facility] Last Admin: 01/04/18 07:07 Dose: 1,000 mg Allopurinol (Zyloprim) 100 mg PO DAILY [facility] Last Admin: 01/04/18 08:26 Dose: 100 mg Aspirin (Halfprin) 81 mg PO BEDTIME [facility] Last Admin: 01/03/18 20:35 Dose: 81 mg Bupropion HCl (Wellbutrin Xl) 150 mg PO DAILY [facility] Last Admin: 01/04/18 08:25 Dose: 150 mg Diclofenac Sodium (Voltaren 1% Gel) 1 gm TOP QID [facility] Last Admin: 01/04/18 08:32 Dose: 1 applic Docusate Sodium (Colace) 100 mg PO DAILY [facility] Last Admin: 01/04/18 08:25 Dose: 100 mg Furosemide (Lasix) 20 mg PO SuTuThSa@1500 [facility] Last Admin: 01/02/18 15:09 Dose: 20 mg Furosemide (Lasix) 20 mg PO DAILY@0700 [facility] Last Admin: 01/04/18 07:07 Dose: 20 mg Insulin Detemir (Levemir) 40 unit SUBCUT DAILY [facility] Last Admin: 01/04/18 08:31 Dose: 40 units Losartan Potassium (Cozaar) 75 mg PO DAILY [facility] Last Admin: 01/04/18 08:25 Dose: 75 mg Magnesium Hydroxide (Milk Of Magnesia) 30 ml PO DAILY PRN PRN Reason: Constipation Last Admin: 10/26/17 09:10 Dose: 30 ml Metoprolol Tartrate (Lopressor) 50 mg PO BID [facility] Last Admin: 01/04/18 08:26 Dose: 50 mg Multivitamins/Minerals (Centrum) 1 tab PO DAILY [facility] Last Admin: 01/04/18 08:25 Dose: 1 tab Naloxegol (Movantik) 25 mg PO DAILY [facility] Last Admin: 01/04/18 08:26 Dose: 25 mg Nystatin (Nystatin Ointment) 0 gm TOP BID PRN PRN Reason: Rash Omeprazole (Omeprazole) 20 mg PO DAILY@0600,1700 [facility] Last Admin: 01/04/18 07:07 Dose: 20 mg Ondansetron HCl (Zofran Odt) 8 mg PO TID PRN PRN Reason: nausea or vomitting Last Admin: 01/02/18 10:38 Dose: 8 mg Oxycodone HCl (Oxycodone) 5 mg PO Q6H PRN PRN Reason: Pain Last Admin: 01/03/18 18:26 Dose: 5 mg Oxycodone HCl (Oxycontin) 10 mg PO Q12H [facility] Last Admin: 01/04/18 08:31 Dose: 10 mg Polyethylene Glycol (Miralax) 17 gm PO DAILY PRN PRN Reason: Constipation Last Admin: 01/02/18 18:23 Dose: 17 gm Polysaccharide Iron Complex (Ferrex 150) 150 mg PO DAILY [facility] Last Admin: 01/04/18 08:25 Dose: 150 mg Prochlorperazine Maleate (Compazine) 10 mg PO QID PRN PRN Reason: Nausea Last Admin: 01/02/18 16:41 Dose: 10 mg Promethazine HCl (Phenergan) 25 mg IM Q6H PRN PRN Reason: Nausea Last Admin: 01/02/18 18:21 Dose: 25 mg Ramelteon (Rozerem) 8 mg PO BEDTIME [facility] Last Admin: 01/03/18 20:37 Dose: 8 mg Sertraline HCl (Zoloft) 100 mg PO BEDTIME [facility] Last Admin: 01/03/18 20:38 Dose: 100 mg Simvastatin (Zocor) 40 mg PO BEDTIME [facility] Last Admin: 01/03/18 20:37 Dose: 40 mg Zinc Gluconate (Zinc) 50 mg PO DAILY [facility] Last Admin: 01/04/18 08:26 Dose: 50 mg Discontinued Medications Acetaminophen (Tylenol Extra Strength) 1,000 mg PO Q8H [facility] Last Admin: 10/23/17 02:00 Dose: 1,000 mg Acetaminophen (Tylenol Extra Strength) 1,000 mg PO Q8H [facility] Last Admin: 11/22/17 15:12 Dose: 1,000 mg Acetaminophen (Tylenol) Confirm Administered Dose 975 mg .ROUTE .STK-MED ONE Stop: 11/08/17 07:36 Last Admin: 11/08/17 08:28 Dose: 975 mg Hydrocodone Bitart/Acetaminophen ([place] 325-5 Mg) 1 - 2 tab PO Q4H PRN PRN Reason: Moderate Pain Last Admin: 10/24/17 19:26 Dose: 1 tab Bacitracin (Bacitracin Oint) 1 gm TOP DAILY PRN PRN Reason: Rash Bisacodyl (Dulcolax) 10 mg RECTAL ONETIME ONE Stop: 12/21/17 04:02 Last Admin: 12/21/17 04:17 Dose: Not Given Calcium Carbonate/Glycine (Tums) 500 mg PO TID PRN PRN Reason: Indigestion Ciprofloxacin (Ciprofloxacin Hcl) 500 mg PO BID [facility] Stop: 12/24/17 21:01 Last Admin: 12/24/17 21:04 Dose: 500 mg Al Hydroxide/Mg Hydroxide 40 ml/ Diphenhydramine HCl 12.5 mg/ Lidocaine HCl 40 ml 0 ml PO TID PRN PRN Reason: mouth sores/burning Last Admin: 10/28/17 08:11 Dose: 10 ml Cranberry (Azo Cranberry) 1 each PO BEDTIME [facility] Last Admin: 11/07/17 21:46 Dose: Not Given Furosemide (Lasix) 20 mg PO DAILY [facility] Last Admin: 12/13/17 09:25 Dose: 20 mg Furosemide (Lasix) 20 mg PO SUTUTHSA@1700 [facility] Last Admin: 12/12/17 16:01 Dose: 20 mg Heparin Sodium (Porcine) (Heparin Lock Flush 100 Units/Ml) 500 units FLUSH ASDIRECTED PRN PRN Reason: Other Cefepime HCl 1 gm/ Sodium (Chloride) 50 mls @ 100 mls/hr IV Q8H [facility] Last Admin: 11/01/17 18:52 Dose: Not Given Cefepime HCl 1 gm/ Sodium (Chloride) 50 mls @ 100 mls/hr IV Q24H [facility] Last Admin: 11/07/17 20:32 Dose: 100 mls/hr Sodium Chloride (Normal Saline) Confirm Administered Dose 50 mls @ as directed .ROUTE .[facility] ONE Stop: 11/02/17 22:10 Last Admin: 11/02/17 23:15 Dose: 100 mls/hr Sodium Chloride (Normal Saline) Confirm Administered Dose 50 mls @ as directed .ROUTE .[facility] ONE Stop: 11/03/17 21:46 Last Admin: 11/03/17 21:56 Dose: Not Given Sodium Chloride (Normal Saline) 50 mls @ 50 mls/hr IV ASDIRECTED [facility] Albumin Human (Flexbumin 25%) 100 mls @ 50 mls/hr IV ONETIME ONE Stop: 11/22/17 13:59 Last Admin: 11/22/17 13:07 Dose: 50 mls/hr Sodium Chloride (Normal Saline) 250 mls @ 125 mls/hr IV ASDIRECTED [facility] Stop: 11/22/17 21:00 Last Admin: 11/22/17 15:40 Dose: 125 mls/hr Ciprofloxacin/Dextrose (Cipro In D5w 400 Mg/200 Ml) 200 mls @ 200 mls/hr IV Q12H [facility] Last Admin: 11/26/17 06:13 Dose: 200 mls/hr Sodium Chloride (Normal Saline) Confirm Administered Dose 100 mls @ as directed .ROUTE .[facility] ONE Stop: 11/22/17 20:04 Last Admin: 11/22/17 20:05 Dose: 100 mls/hr Sodium Chloride (Normal Saline) 100 mls @ 200 mls/hr IV ASDIRECTED [facility] Sodium Chloride (Normal Saline) 100 mls @ 20 mls/hr IV DAILY@1900 [facility] Last Admin: 11/25/17 18:08 Dose: 20 mls/hr Insulin Aspart (Novolog) 0 unit SUBCUT WITHMEALSANDBED [facility]; Protocol Stop: 10/31/17 00:00 Last Admin: 10/30/17 21:02 Dose: 5 units Insulin Aspart (Novolog) 2 unit SUBCUT ONETIME ONE Stop: 10/31/17 20:59 Last Admin: 10/31/17 21:07 Dose: 2 units Insulin Aspart (Novolog) 10 unit SUBCUT ONETIME ONE Stop: 11/12/17 17:44 Last Admin: 11/12/17 18:06 Dose: 10 units Insulin Aspart (Novolog) 0 unit SUBCUT TIDMEALS [facility]; Protocol Last Admin: 12/21/17 17:16 Dose: Not Given Insulin Detemir (Levemir) 44 unit SUBCUT DAILY [facility] Last Admin: 10/30/17 10:10 Dose: Not Given Insulin Detemir (Levemir) 40 unit SUBCUT DAILY [facility] Last Admin: 11/14/17 08:22 Dose: 40 units Insulin Detemir (Levemir) 44 unit SUBCUT DAILY [facility] Last Admin: 11/29/17 11:32 Dose: Not Given Insulin Detemir (Levemir) 34 unit SUBCUT DAILY [facility] Last Admin: 12/02/17 10:11 Dose: Not Given Insulin Detemir (Levemir) 30 unit SUBCUT DAILY [facility] Last Admin: 12/20/17 08:02 Dose: 30 units Insulin Detemir (Levemir) 10 unit SUBCUT ONETIME ONE Stop: 12/20/17 13:01 Last Admin: 12/20/17 14:38 Dose: 10 units Lidocaine/Epinephrine (Xylocaine 1% With Epinephrine 1:100,000) 3 ml INJECT ONETIME ONE Stop: 11/05/17 09:01 Last Admin: 11/05/17 09:00 Dose: 3 ml Loperamide HCl (Imodium) 2 mg PO ASDIRECTED PRN PRN Reason: Diarrhea Last Admin: 11/30/17 05:53 Dose: 2 mg Lorazepam (Ativan) 0.25 mg PO Q8H PRN PRN Reason: Anxiety Last Admin: 12/13/17 18:03 Dose: 0.25 mg Losartan Potassium (Cozaar) 25 mg PO DAILY [facility] Last Admin: 11/27/17 09:05 Dose: 25 mg Losartan Potassium (Cozaar) 50 mg PO DAILY [facility] Last Admin: 12/25/17 08:57 Dose: 50 mg Multivitamins/Minerals (Centrum) 1 tab PO DAILY [facility] Last Admin: 12/20/17 08:03 Dose: 1 tab Multivitamins/Minerals (Centrum) 1 tab PO DAILY@1200 [facility] Last Admin: 12/27/17 11:36 Dose: 1 tab Mupirocin (Bactroban Crm) 1 gm TOP TID [facility] Last Admin: 10/29/17 11:29 Dose: Not Given Mupirocin (Bactroban Oint) 0 gm TOP DAILY [facility] Last Admin: 12/06/17 10:12 Dose: 1 applic Insulin Degludec ( (Tresiba) 44units) 44 units SUBCUT DAILY [facility] Nystatin (Nystop) 0 gm TOP BID [facility] Last Admin: 10/25/17 08:58 Dose: 1 applic Nystatin (Nystop) 0 gm TOP TID [facility] Last Admin: 10/26/17 11:15 Dose: Not Given Nystatin (Nystatin Ointment) 0 gm TOP TID [facility] Last Admin: 11/04/17 15:49 Dose: Not Given Nystatin (Nystatin Ointment) 1 gm TOP DAILY PRN PRN Reason: Rash Last Admin: 12/26/17 08:19 Dose: 1 applic Nystatin (Nystatin Ointment) 1 gm TOP BID [facility] Last Admin: 01/01/18 09:12 Dose: Not Given Nystatin (Nystatin Ointment) 1 gm TOP BID PRN PRN Reason: Rash Olanzapine (Zyprexa) 10 mg PO ASDIRECTED [facility] Olanzapine (Zyprexa) 10 mg PO BEDTIME [facility] Stop: 11/14/17 21:01 Last Admin: 11/14/17 21:28 Dose: 10 mg Olanzapine (Zyprexa) 10 mg PO BEDTIME [facility] Stop: 11/22/17 21:01 Last Admin: 11/22/17 21:41 Dose: 10 mg Omeprazole (Omeprazole) 20 mg PO SUTUTHSA@2100 [facility] Last Admin: 10/23/17 21:24 Dose: 20 mg Omeprazole (Omeprazole) 20 mg PO DAILY@2100 [facility] Last Admin: 12/11/17 20:18 Dose: 20 mg Omeprazole (Omeprazole) 20 mg PO BID [facility] Last Admin: 12/13/17 09:27 Dose: 20 [facility] Admin: 12/17/17 16:45 Dose: 20 mg Oxycodone HCl (Oxycodone) 5 mg PO Q6H [facility] Last Admin: 10/23/17 06:11 Dose: 5 mg Oxycodone HCl (Oxycodone) 5 mg PO Q6H [facility] Last Admin: 10/24/17 06:21 Dose: Not Given Oxycodone HCl (Oxycodone) 5 mg PO BEDTIME [facility] Last Admin: 12/07/17 20:02 Dose: 5 mg Oxycodone HCl (Oxycodone) 5 mg PO ONETIME ONE Stop: 11/23/17 18:12 Last Admin: 11/23/17 18:48 Dose: 5 mg Oxycodone HCl (Oxycodone) 7.5 mg PO BEDTIME [facility] Stop: 12/13/17 23:00 Last Admin: 12/13/17 20:05 Dose: 7.5 mg Oxycodone HCl (Oxycodone) 5 mg PO ONETIME ONE Stop: 12/13/17 17:59 Last Admin: 12/13/17 18:21 Dose: 5 mg Oxycodone HCl (Oxycontin) Confirm Administered Dose 10 mg .ROUTE .STK-MED ONE Stop: 12/31/17 11:25 Last Admin: 12/31/17 11:26 Dose: 10 mg Polysaccharide Iron Complex (Ferrex 150) 150 mg PO DAILY [facility] Last Admin: 12/20/17 08:05 Dose: 150 mg Polysaccharide Iron Complex (Ferrex 150) 150 mg PO DAILY@1200 [facility] Last Admin: 12/27/17 11:36 Dose: 150 mg Prochlorperazine Maleate (Compazine) 10 mg PO QID PRN PRN Reason: Nausea Senna/Docusate Sodium (Senna Plus) 1 tab PO BID PRN PRN Reason: Constipation Last Admin: 10/28/17 08:08 Dose: 1 tab Senna/Docusate Sodium (Senna Plus) 1 tab PO BID [facility] Last Admin: 11/04/17 15:49 Dose: Not Given Senna/Docusate Sodium (Senna Plus) 1 - 2 tab PO DAILY PRN PRN Reason: Constipation Sodium Chloride ([place] Nasal [place]) 1 ml ALDO QID PRN PRN Reason: Dryness Last Admin: 11/12/17 21:03 Dose: 1 spray Sodium Chloride (Normal Saline) 20 ml FLUSH ASDIRECTED PRN PRN Reason: Other Sodium Chloride (Saline Flush) 20 ml FLUSH Q8H [facility] Last Admin: 11/02/17 10:46 Dose: Not Given Sodium Chloride (Saline Flush) 20 ml FLUSH Q8H [facility] Last Admin: 11/11/17 12:20 Dose: Not Given Zinc Gluconate (Zinc) 50 mg PO DAILY [facility] Last Admin: 12/20/17 08:05 Dose: 50 mg Zinc Gluconate (Zinc) 50 mg PO DAILY@1200 [facility] Last Admin: 12/27/17 11:35 Dose: 50 mg - Exam Quality Assessment: Skin Breakdown (Skin breakdown coccyx, present on admission , ongoing wound VAC therapy). No: Supplemental Oxygen Neck: Supple Lungs: Clear to Auscultation, Normal Respiratory Effort Cardiovascular: Regular Rate, Regular Rhythm GI/Abdominal Exam: Normal Bowel Sounds (Female) Exam: Deferred Back Exam: No: CVA Tenderness (L), CVA Tenderness (R) Extremities: No: Pedal Edema Skin: Other (Wound VAC therapy to sacral breakdown) Wound/Incisions: Drainage, Other (Wound VAC therapy in progress) Psy/Mental Status: Alert, Normal Affect, Normal Mood - Problem List Review Problem List Initiated/Reviewed/Updated: Yes - Plan Plan:: HPI: This is a 76 year old female who had previously been in swing bed status due to a left humeral fracture and deconditioning. The patient has been recently diagnosed with peritoneal carcinomatosis. The patient was sent up to [facility] on 10/20/17 for abdominal paracentesis and pleurx catheter placement. She had labs done that day which showed a hemoglobin of 6.5. She was then admitted to their hospitalist services. She was given 2 units of PRBCs. She was due for her second cycle of carboplatin and taxol while there and this was completed on 10/21/17. She was also given Neulasta prior to discharge. She has been tolerating her treatment well and has been changed from a weekly protocol to every 3 week protocol. The patient was admitted back to swing bed status for rehabilitation of her fracture and deconditioning. PRIMARY ASSESSMENT/PLAN: Update on rounds, doing quite well, wound VAC therapy ongoing. Stage IV pressure ulcer to coccyx, POA, ongoing wound VAC therapy, continues with Off loading. Nutritional support, Deconditioning. ongoing physical therapy, pain control prior to PT. Left humeral head fracture. Continue with sling and swath. She was seen by Dr. Singer, orthopedist, on 10/18/17 and it was advised for conservative management to include sling and swath for 6 weeks followed by aggressive therapy for range of motion and strengthening. HTN, Continue lopressor recent ARB increased to 75 mg by mouth daily--improved Immunocompromised host. Malignant ascites. pleurx catheter. Anemia due to antineoplastic chemotherapy. Hgb stable at 11.5 Constipation. Continue movantik however increase senna. SECONDARY ASSESSMENT/PLAN: Primary peritoneal carcinomatosis. Followed by Dr. Collier/oncology with ongoing Pleurx abdominal drain. History of endometrial cancer, s/p hysterceomty 2009. CAD, no ischemic picture, stable Aortic stenosis. History of atrial flutter. Type 2 DM. Accuchecks daily. Tresiba switched to levemir daily due to not being available in house. CKD stage 3, stable. GFR 49, creatinine 0.55 Hyperlipidemia. Continue simvastatin. Obesity. Strip gout, allopurinol 100 mg daily. Diabetic retinopathy. Depression. Continue zoloft. GERD. Continue omeprazole. OAB. Osteoarthritis. History of hypercalcemia. Calcium 8.3 Recent Hypoalbuminemia now normalized at 3.2 DVT prophylaxis. Score of 6, Continue with phan stockings. Medical decision making; ongoing wound VAC therapy. Although there is no signs of infection patient is a significant immunocompromised host due to her cancer, recent chemotherapy, protein malnutrition, debility, obesity, with conconmittent left humeral shoulder fracture--attributed to patient being an immunocompromised host resulting in delayed wound healing without wound VAC therapy.
[2018-01-04] MEDS: oxyCODONE 5 MG Tab PO PRN (15:17)
[2018-01-04] MEDS: Aspirin 81 MG Tab.EC PO SCH (20:04)
[2018-01-04] MEDS: Sertraline 50 MG Tab PO SCH (20:04)
[2018-01-04] MEDS: Simvastatin 20 MG Tab PO SCH (20:04)
[2018-01-05] MEDS: Furosemide 20 MG Tab PO SCH (06:21)
[2018-01-05] MEDS: Acetaminophen 500 MG Tab PO SCH ×4 (06:21→22:03)
[2018-01-05] MEDS: Omeprazole 20 MG Cap.CR PO SCH ×2 (06:21→16:42)
[2018-01-05] MEDS: oxyCODONE ER 10 MG TAB.ER PO SCH ×2 (08:26→20:15)
[2018-01-05] MEDS: Diclofenac Sodium 1% Gel 100 GM Tube TOP SCH ×4 (08:28→20:15)
[2018-01-05] MEDS: Insulin Detemir 100 Units/ML 3 ML Pen SUBCUT SCH (08:30)
[2018-01-05] MEDS: Docusate Sodium 100 MG Cap PO SCH (08:31)
[2018-01-05] MEDS: Losartan 50 MG Tab PO SCH (08:31)
[2018-01-05] MEDS: Naloxegol Oxalate 25 MG Tab PO SCH (08:31)
[2018-01-05] MEDS: Allopurinol 100 MG Tab PO SCH (08:32)
[2018-01-05] MEDS: Metoprolol Tartrate 50 MG Tab PO SCH ×2 (08:32→20:16)
[2018-01-05] MEDS: Iron Polysaccharides Complex 150 MG Cap PO SCH (08:32)
[2018-01-05] MEDS: buPROPion 150 MG Tab.ER PO SCH (08:32)
[2018-01-05] MEDS: Multivitamins with Minerals/Iron/Folic Acid/Lycopene Tab PO SCH (08:33)
[2018-01-05] MEDS: Zinc (Zinc Gluconate) 50 MG Tab PO SCH (08:33)
[2018-01-05] MEDS: Sertraline 50 MG Tab PO SCH (20:15)
[2018-01-05] MEDS: Aspirin 81 MG Tab.EC PO SCH (20:15)
[2018-01-05] MEDS: Simvastatin 20 MG Tab PO SCH (20:15)
[2018-01-06] MEDS: Omeprazole 20 MG Cap.CR PO SCH ×2 (05:58→17:08)
[2018-01-06] MEDS: Furosemide 20 MG Tab PO SCH ×2 (05:59→15:23)
[2018-01-06] MEDS: Acetaminophen 500 MG Tab PO SCH ×3 (05:59→22:22)
[2018-01-06] MEDS: Insulin Detemir 100 Units/ML 3 ML Pen SUBCUT SCH (08:32)
[2018-01-06] MEDS: Diclofenac Sodium 1% Gel 100 GM Tube TOP SCH ×4 (08:33→21:50)
[2018-01-06] MEDS: buPROPion 150 MG Tab.ER PO SCH (08:36)
[2018-01-06] MEDS: Naloxegol Oxalate 25 MG Tab PO SCH (08:36)
[2018-01-06] MEDS: Allopurinol 100 MG Tab PO SCH (08:36)
[2018-01-06] MEDS: Docusate Sodium 100 MG Cap PO SCH (08:37)
[2018-01-06] MEDS: Iron Polysaccharides Complex 150 MG Cap PO SCH (08:37)
[2018-01-06] MEDS: Zinc (Zinc Gluconate) 50 MG Tab PO SCH (08:37)
[2018-01-06] MEDS: Multivitamins with Minerals/Iron/Folic Acid/Lycopene Tab PO SCH (08:37)
[2018-01-06] MEDS: oxyCODONE ER 10 MG TAB.ER PO SCH ×2 (08:44→21:51)
[2018-01-06] MEDS: Losartan 50 MG Tab PO SCH (08:47)
[2018-01-06] MEDS: Metoprolol Tartrate 50 MG Tab PO SCH ×2 (08:48→21:54)
[2018-01-06] MEDS: Simvastatin 20 MG Tab PO SCH (21:51)
[2018-01-06] MEDS: Aspirin 81 MG Tab.EC PO SCH (21:51)
[2018-01-06] MEDS: Sertraline 50 MG Tab PO SCH (21:51)
[2018-01-07] MEDS: oxyCODONE 5 MG Tab PO PRN ×2 (00:35→13:17)
[2018-01-07] MEDS: Omeprazole 20 MG Cap.CR PO SCH ×2 (05:31→17:14)
[2018-01-07] MEDS: Furosemide 20 MG Tab PO SCH (06:11)
[2018-01-07] MEDS: Acetaminophen 500 MG Tab PO SCH ×2 (06:11→15:38)
[2018-01-07] MEDS: buPROPion 150 MG Tab.ER PO SCH (08:12)
[2018-01-07] MEDS: Diclofenac Sodium 1% Gel 100 GM Tube TOP SCH ×4 (08:12→20:57)
[2018-01-07] MEDS: Naloxegol Oxalate 25 MG Tab PO SCH (08:12)
[2018-01-07] MEDS: Zinc (Zinc Gluconate) 50 MG Tab PO SCH (08:12)
[2018-01-07] MEDS: Docusate Sodium 100 MG Cap PO SCH (08:12)
[2018-01-07] MEDS: Multivitamins with Minerals/Iron/Folic Acid/Lycopene Tab PO SCH (08:12)
[2018-01-07] MEDS: Iron Polysaccharides Complex 150 MG Cap PO SCH (08:12)
[2018-01-07] MEDS: Allopurinol 100 MG Tab PO SCH (08:12)
[2018-01-07] MEDS: Insulin Detemir 100 Units/ML 3 ML Pen SUBCUT SCH (08:24)
[2018-01-07] MEDS: oxyCODONE ER 10 MG TAB.ER PO SCH ×2 (08:24→20:56)
[2018-01-07] MEDS: Losartan 50 MG Tab PO SCH (08:24)
[2018-01-07] MEDS: Metoprolol Tartrate 50 MG Tab PO SCH ×2 (08:24→20:55)
[2018-01-07] MEDS: Sertraline 50 MG Tab PO SCH (20:58)
[2018-01-07] MEDS: Simvastatin 20 MG Tab PO SCH (20:58)
[2018-01-07] MEDS: Aspirin 81 MG Tab.EC PO SCH (21:00)
[2018-01-08] MEDS: Acetaminophen 500 MG Tab PO SCH ×4 (01:25→23:06)
[2018-01-08] MEDS: Omeprazole 20 MG Cap.CR PO SCH ×2 (06:27→17:37)
[2018-01-08] MEDS: Furosemide 20 MG Tab PO SCH ×2 (06:27→16:03)
[2018-01-08] MEDS: Docusate Sodium 100 MG Cap PO SCH (09:12)
[2018-01-08] MEDS: Multivitamins with Minerals/Iron/Folic Acid/Lycopene Tab PO SCH (09:12)
[2018-01-08] MEDS: Iron Polysaccharides Complex 150 MG Cap PO SCH (09:12)
[2018-01-08] MEDS: Allopurinol 100 MG Tab PO SCH (09:13)
[2018-01-08] MEDS: buPROPion 150 MG Tab.ER PO SCH (09:13)
[2018-01-08] MEDS: Zinc (Zinc Gluconate) 50 MG Tab PO SCH (09:13)
[2018-01-08] MEDS: Naloxegol Oxalate 25 MG Tab PO SCH (09:13)
[2018-01-08] MEDS: Metoprolol Tartrate 50 MG Tab PO SCH ×2 (09:18→20:52)
[2018-01-08] MEDS: Losartan 50 MG Tab PO SCH (09:18)
[2018-01-08] MEDS: Insulin Detemir 100 Units/ML 3 ML Pen SUBCUT SCH (09:19)
[2018-01-08] MEDS: oxyCODONE ER 10 MG TAB.ER PO SCH ×2 (09:20→20:53)
[2018-01-08] MEDS: Diclofenac Sodium 1% Gel 100 GM Tube TOP SCH ×4 (09:30→20:51)
[2018-01-08] MEDS ORDERED: Bisacodyl 10 MG Supp ONE (11:36)
[2018-01-08] MEDS: Bisacodyl 10 MG Supp RECTAL PRN (11:45)
[2018-01-08] MEDS: Aspirin 81 MG Tab.EC PO SCH (20:52)
[2018-01-08] MEDS: Simvastatin 20 MG Tab PO SCH (20:53)
[2018-01-08] MEDS: Sertraline 50 MG Tab PO SCH (20:56)
[2018-01-09] MEDS: Omeprazole 20 MG Cap.CR PO SCH ×2 (05:57→16:54)
[2018-01-09] MEDS: Furosemide 20 MG Tab PO SCH ×2 (07:04→16:54)
[2018-01-09] MEDS: Acetaminophen 500 MG Tab PO SCH ×4 (07:05→22:56)
[2018-01-09] MEDS: Multivitamins with Minerals/Iron/Folic Acid/Lycopene Tab PO SCH (09:28)
[2018-01-09] MEDS: buPROPion 150 MG Tab.ER PO SCH (09:29)
[2018-01-09] MEDS: Iron Polysaccharides Complex 150 MG Cap PO SCH (09:29)
[2018-01-09] MEDS: Naloxegol Oxalate 25 MG Tab PO SCH (09:29)
[2018-01-09] MEDS: Metoprolol Tartrate 50 MG Tab PO SCH ×2 (09:30→20:48)
[2018-01-09] MEDS: Losartan 50 MG Tab PO SCH (09:30)
[2018-01-09] MEDS: Docusate Sodium 100 MG Cap PO SCH (09:30)
[2018-01-09] MEDS: Insulin Detemir 100 Units/ML 3 ML Pen SUBCUT SCH (09:31)
[2018-01-09] MEDS: Zinc (Zinc Gluconate) 50 MG Tab PO SCH (09:32)
[2018-01-09] MEDS: Diclofenac Sodium 1% Gel 100 GM Tube TOP SCH ×4 (09:32→20:50)
[2018-01-09] MEDS: Allopurinol 100 MG Tab PO SCH (09:32)
[2018-01-09] MEDS: oxyCODONE ER 10 MG TAB.ER PO SCH ×2 (09:37→20:49)
[2018-01-09] MEDS: Polyethylene Glycol 3350 Powder 17 GM Packet PO PRN (09:37)
[2018-01-09] MEDS: Simvastatin 20 MG Tab PO SCH (20:49)
[2018-01-09] MEDS: Aspirin 81 MG Tab.EC PO SCH (20:49)
[2018-01-09] MEDS: Sertraline 50 MG Tab PO SCH (20:49)
[2018-01-09] MEDS ORDERED: Aluminum Hydroxide/Magnesium Hydroxide Susp 30 ML Cup ONE (21:48)
[2018-01-09] MEDS ORDERED: Aluminum Hydroxide/Magnesium Hydroxide Susp 30 ML Cup PO PRN (21:57)
[2018-01-09] MEDS: Magnesium Hydroxide 400 MG/5 ML Susp 30 ML Cup PO PRN (22:00)
[2018-01-10] MEDS: Omeprazole 20 MG Cap.CR PO SCH ×2 (06:11→17:08)
[2018-01-10] MEDS: Acetaminophen 500 MG Tab PO SCH ×4 (06:54→23:30)
[2018-01-10] MEDS: Furosemide 20 MG Tab PO SCH (06:54)
[2018-01-10] MEDS: Polyethylene Glycol 3350 Powder 17 GM Packet PO PRN (08:19)
[2018-01-10] MEDS: oxyCODONE ER 10 MG TAB.ER PO SCH ×2 (08:19→20:27)
[2018-01-10] MEDS: Insulin Detemir 100 Units/ML 3 ML Pen SUBCUT SCH (08:20)
[2018-01-10] MEDS: Diclofenac Sodium 1% Gel 100 GM Tube TOP SCH ×4 (08:22→20:28)
[2018-01-10] MEDS: Losartan 50 MG Tab PO SCH (08:24)
[2018-01-10] MEDS: Multivitamins with Minerals/Iron/Folic Acid/Lycopene Tab PO SCH (08:24)
[2018-01-10] MEDS: Zinc (Zinc Gluconate) 50 MG Tab PO SCH (08:24)
[2018-01-10] MEDS: Iron Polysaccharides Complex 150 MG Cap PO SCH (08:24)
[2018-01-10] MEDS: Metoprolol Tartrate 50 MG Tab PO SCH ×2 (08:25→20:26)
[2018-01-10] MEDS: buPROPion 150 MG Tab.ER PO SCH (08:25)
[2018-01-10] MEDS: Allopurinol 100 MG Tab PO SCH (08:26)
[2018-01-10] MEDS: Naloxegol Oxalate 25 MG Tab PO SCH (08:26)
[2018-01-10] MEDS: Docusate Sodium 100 MG Cap PO SCH (08:26)
[2018-01-10] MEDS: Simethicone 80 MG Tab.Chew PO PRN (08:45)
[2018-01-10] MEDS: Aspirin 81 MG Tab.EC PO SCH (20:27)
[2018-01-10] MEDS: Simvastatin 20 MG Tab PO SCH (20:28)
[2018-01-10] MEDS: Sertraline 50 MG Tab PO SCH (20:28)
[2018-01-11] MEDS: Acetaminophen 500 MG Tab PO SCH ×4 (05:44→23:12)
[2018-01-11] MEDS: Omeprazole 20 MG Cap.CR PO SCH ×2 (05:44→16:59)
[2018-01-11] MEDS: Furosemide 20 MG Tab PO SCH ×3 (05:46→15:08)
[2018-01-11] MEDS: Zinc (Zinc Gluconate) 50 MG Tab PO SCH (08:16)
[2018-01-11] MEDS: buPROPion 150 MG Tab.ER PO SCH (08:16)
[2018-01-11] MEDS: Allopurinol 100 MG Tab PO SCH (08:16)
[2018-01-11] MEDS: oxyCODONE ER 10 MG TAB.ER PO SCH ×2 (08:17→21:07)
[2018-01-11] MEDS: Diclofenac Sodium 1% Gel 100 GM Tube TOP SCH ×4 (08:17→21:08)
[2018-01-11] MEDS: Metoprolol Tartrate 50 MG Tab PO SCH ×2 (08:18→21:07)
[2018-01-11] MEDS: Insulin Detemir 100 Units/ML 3 ML Pen SUBCUT SCH (08:18)
[2018-01-11] MEDS: Naloxegol Oxalate 25 MG Tab PO SCH (08:18)
[2018-01-11] MEDS: Losartan 50 MG Tab PO SCH (08:19)
[2018-01-11] MEDS: Docusate Sodium 100 MG Cap PO SCH (08:19)
[2018-01-11] MEDS: Multivitamins with Minerals/Iron/Folic Acid/Lycopene Tab PO SCH (08:19)
[2018-01-11] MEDS: Iron Polysaccharides Complex 150 MG Cap PO SCH (08:19)
[2018-01-11] MEDS: Aspirin 81 MG Tab.EC PO SCH (21:06)
[2018-01-11] MEDS: Sertraline 50 MG Tab PO SCH (21:08)
[2018-01-11] MEDS: Simvastatin 20 MG Tab PO SCH (21:08)
[2018-01-11] MEDS: Polyethylene Glycol 3350 Powder 17 GM Packet PO PRN (21:19)
[2018-01-12] MEDS: Furosemide 20 MG Tab PO SCH (06:01)
[2018-01-12] MEDS: Omeprazole 20 MG Cap.CR PO SCH ×2 (06:01→18:09)
[2018-01-12] MEDS: Acetaminophen 500 MG Tab PO SCH ×2 (06:01→14:34)
[2018-01-12] MEDS: Insulin Detemir 100 Units/ML 3 ML Pen SUBCUT SCH (08:01)
[2018-01-12] MEDS: buPROPion 150 MG Tab.ER PO SCH (08:02)
[2018-01-12] MEDS: Diclofenac Sodium 1% Gel 100 GM Tube TOP SCH ×4 (08:02→21:05)
[2018-01-12] MEDS: Multivitamins with Minerals/Iron/Folic Acid/Lycopene Tab PO SCH (08:03)
[2018-01-12] MEDS: Zinc (Zinc Gluconate) 50 MG Tab PO SCH (08:03)
[2018-01-12] MEDS: oxyCODONE ER 10 MG TAB.ER PO SCH ×2 (08:03→21:07)
[2018-01-12] MEDS: Metoprolol Tartrate 50 MG Tab PO SCH ×2 (08:03→21:08)
[2018-01-12] MEDS: Allopurinol 100 MG Tab PO SCH (08:04)
[2018-01-12] MEDS: Losartan 50 MG Tab PO SCH (08:04)
[2018-01-12] MEDS: Docusate Sodium 100 MG Cap PO SCH (08:04)
[2018-01-12] MEDS: Naloxegol Oxalate 25 MG Tab PO SCH (08:04)
[2018-01-12] MEDS: Iron Polysaccharides Complex 150 MG Cap PO SCH (08:04)
--- NOTE | 2018-01-12 09:49 | PCM.PN ---
- General Info Date of Service: 01/12/18 Functional Status: Reports: Pain Controlled, New Symptoms (Constipation requiring digital disimpaction ) - Review of Systems General: Reports: No Symptoms HEENT: Reports: No Symptoms Pulmonary: Reports: No Symptoms Cardiovascular: Reports: No Symptoms Gastrointestinal: Reports: Constipation Genitourinary: Reports: No Symptoms Musculoskeletal: Reports: No Symptoms Skin: Reports: Other (Ongoing wound VAC) Neurological: Reports: No Symptoms Psychiatric: Reports: Other (Appears that her depression symptoms have improved) - Patient Data Vitals - Most Recent: Last Vital Signs Temp 99.0 F 01/12/18 06:20 Pulse 76 01/12/18 08:03 Resp 18 01/12/18 06:20 BP 157/75 H 01/12/18 08:04 Pulse Ox 91 L 01/12/18 06:20 Weight - Most Recent: 209 lb I&O - Last 24 Hours: Intake & Output 01/11/18 01/12/18 01/12/18 22:59 06:59 14:59 Intake Total 660 0 Balance 660 0 Lab Results Last 24 Hours: Laboratory Results - last 24 hr 01/11/18 01/12/18 Range/Units 16:53 05:57 POC Glucose 138 H 130 H (74-106) mg/dl Med Orders - Current: Current Medications Acetaminophen (Tylenol Extra Strength) 1,000 mg PO Q8H [facility] Last Admin: 01/12/18 06:01 Dose: 1,000 mg Al Hydroxide/Mg Hydroxide (Mag-Al Susp) 30 ml PO Q6H PRN PRN Reason: Heartburn Last Admin: 01/09/18 22:00 Dose: 30 ml Allopurinol (Zyloprim) 100 mg PO DAILY [facility] Last Admin: 01/12/18 08:04 Dose: 100 mg Aspirin (Halfprin) 81 mg PO BEDTIME [facility] Last Admin: 01/11/18 21:06 Dose: 81 mg Bisacodyl (Dulcolax) 10 mg RECTAL DAILY PRN PRN Reason: Constipation Last Admin: 01/08/18 11:45 Dose: 10 mg Bupropion HCl (Wellbutrin Xl) 150 mg PO DAILY [facility] Last Admin: 01/12/18 08:02 Dose: 150 mg Diclofenac Sodium (Voltaren 1% Gel) 1 gm TOP QID [facility] Last Admin: 01/12/18 08:02 Dose: 1 applic Docusate Sodium (Colace) 100 mg PO DAILY [facility] Last Admin: 01/12/18 08:04 Dose: 100 mg Furosemide (Lasix) 20 mg PO SuTuThSa@1500 [facility] Last Admin: 01/11/18 15:08 Dose: 20 mg Furosemide (Lasix) 20 mg PO DAILY@0700 [facility] Last Admin: 01/12/18 06:01 Dose: 20 mg Insulin Detemir (Levemir) 40 unit SUBCUT DAILY [facility] Last Admin: 01/12/18 08:01 Dose: 40 units Losartan Potassium (Cozaar) 75 mg PO DAILY [facility] Last Admin: 01/12/18 08:04 Dose: 75 mg Magnesium Hydroxide (Milk Of Magnesia) 30 ml PO DAILY PRN PRN Reason: Constipation Last Admin: 10/26/17 09:10 Dose: 30 ml Metoprolol Tartrate (Lopressor) 50 mg PO BID [facility] Last Admin: 01/12/18 08:03 Dose: 50 mg Multivitamins/Minerals (Centrum) 1 tab PO DAILY [facility] Last Admin: 01/12/18 08:03 Dose: 1 tab Naloxegol (Movantik) 25 mg PO DAILY [facility] Last Admin: 01/12/18 08:04 Dose: 25 mg Nystatin (Nystatin Ointment) 0 gm TOP BID PRN PRN Reason: Rash Omeprazole (Omeprazole) 20 mg PO DAILY@0600,1700 [facility] Last Admin: 01/12/18 06:01 Dose: 20 mg Ondansetron HCl (Zofran Odt) 8 mg PO TID PRN PRN Reason: nausea or vomitting Last Admin: 01/02/18 10:38 Dose: 8 mg Oxycodone HCl (Oxycodone) 5 mg PO Q6H PRN PRN Reason: Pain Last Admin: 01/07/18 13:17 Dose: 5 mg Oxycodone HCl (Oxycontin) 10 mg PO Q12H [facility] Last Admin: 01/12/18 08:03 Dose: 10 mg Polyethylene Glycol (Miralax) 17 gm PO DAILY PRN PRN Reason: Constipation Last Admin: 01/11/18 21:19 Dose: 17 gm Polysaccharide Iron Complex (Ferrex 150) 150 mg PO DAILY [facility] Last Admin: 01/12/18 08:04 Dose: 150 mg Prochlorperazine Maleate (Compazine) 10 mg PO QID PRN PRN Reason: Nausea Last Admin: 01/02/18 16:41 Dose: 10 mg Promethazine HCl (Phenergan) 25 mg IM Q6H PRN PRN Reason: Nausea Last Admin: 01/02/18 18:21 Dose: 25 mg Ramelteon (Rozerem) 8 mg PO BEDTIME [facility] Last Admin: 01/11/18 21:08 Dose: 8 mg Sertraline HCl (Zoloft) 150 mg PO BEDTIME [facility] Last Admin: 01/11/18 21:08 Dose: 150 mg Simethicone (Simethicone) 80 mg PO Q6H PRN PRN Reason: Heartburn Last Admin: 01/10/18 08:45 Dose: 80 mg Simvastatin (Zocor) 40 mg PO BEDTIME [facility] Last Admin: 01/11/18 21:08 Dose: 40 mg Zinc Gluconate (Zinc) 50 mg PO DAILY [facility] Last Admin: 01/12/18 08:03 Dose: 50 mg Discontinued Medications Acetaminophen (Tylenol Extra Strength) 1,000 mg PO Q8H [facility] Last Admin: 10/23/17 02:00 Dose: 1,000 mg Acetaminophen (Tylenol Extra Strength) 1,000 mg PO Q8H [facility] Last Admin: 11/22/17 15:12 Dose: 1,000 mg Acetaminophen (Tylenol) Confirm Administered Dose 975 mg .ROUTE .STK-MED ONE Stop: 11/08/17 07:36 Last Admin: 11/08/17 08:28 Dose: 975 mg Hydrocodone Bitart/Acetaminophen ([place] 325-5 Mg) 1 - 2 tab PO Q4H PRN PRN Reason: Moderate Pain Last Admin: 10/24/17 19:26 Dose: 1 tab Al Hydroxide/Mg Hydroxide (Mag-Al Susp) Confirm Administered Dose 30 ml .ROUTE .STK-MED ONE Stop: 01/09/18 21:49 Last Admin: 01/09/18 22:00 Dose: 30 ml Bacitracin (Bacitracin Oint) 1 gm TOP DAILY PRN PRN Reason: Rash Bisacodyl (Dulcolax) 10 mg RECTAL ONETIME ONE Stop: 12/21/17 04:02 Last Admin: 12/21/17 04:17 Dose: Not Given Bisacodyl (Dulcolax) Confirm Administered Dose 10 mg .ROUTE .STK-[facility] ONE Stop: 01/08/18 11:37 Last Admin: 01/08/18 16:15 Dose: Not Given Calcium Carbonate/Glycine (Tums) 500 mg PO TID PRN PRN Reason: Indigestion Ciprofloxacin (Ciprofloxacin Hcl) 500 mg PO BID [facility] Stop: 12/24/17 21:01 Last Admin: 12/24/17 21:04 Dose: 500 mg Al Hydroxide/Mg Hydroxide 40 ml/ Diphenhydramine HCl 12.5 mg/ Lidocaine HCl 40 ml 0 ml PO TID PRN PRN Reason: mouth sores/burning Last Admin: 10/28/17 08:11 Dose: 10 ml Cranberry (Azo Cranberry) 1 each PO BEDTIME [facility] Last Admin: 11/07/17 21:46 Dose: Not Given Furosemide (Lasix) 20 mg PO DAILY [facility] Last Admin: 12/13/17 09:25 Dose: 20 mg Furosemide (Lasix) 20 mg PO SUTUTHSA@1700 [facility] Last Admin: 12/12/17 16:01 Dose: 20 mg Heparin Sodium (Porcine) (Heparin Lock Flush 100 Units/Ml) 500 units FLUSH ASDIRECTED PRN PRN Reason: Other Cefepime HCl 1 gm/ Sodium (Chloride) 50 mls @ 100 mls/hr IV Q8H [facility] Last Admin: 11/01/17 18:52 Dose: Not Given Cefepime HCl 1 gm/ Sodium (Chloride) 50 mls @ 100 mls/hr IV Q24H [facility] Last Admin: 11/07/17 20:32 Dose: 100 mls/hr Sodium Chloride (Normal Saline) Confirm Administered Dose 50 mls @ as directed .ROUTE .[facility]-MED ONE Stop: 11/02/17 22:10 Last Admin: 11/02/17 23:15 Dose: 100 mls/hr Sodium Chloride (Normal Saline) Confirm Administered Dose 50 mls @ as directed .ROUTE .[facility]-MED ONE Stop: 11/03/17 21:46 Last Admin: 11/03/17 21:56 Dose: Not Given Sodium Chloride (Normal Saline) 50 mls @ 50 mls/hr IV ASDIRECTED [facility] Albumin Human (Flexbumin 25%) 100 mls @ 50 mls/hr IV ONETIME ONE Stop: 11/22/17 13:59 Last Admin: 11/22/17 13:07 Dose: 50 mls/hr Sodium Chloride (Normal Saline) 250 mls @ 125 mls/hr IV ASDIRECTED [facility]IERA Stop: 11/22/17 21:00 Last Admin: 11/22/17 15:40 Dose: 125 mls/hr Ciprofloxacin/Dextrose (Cipro In D5w 400 Mg/200 Ml) 200 mls @ 200 mls/hr IV Q12H [facility] Last Admin: 11/26/17 06:13 Dose: 200 mls/hr Sodium Chloride (Normal Saline) Confirm Administered Dose 100 mls @ as directed .ROUTE .STK-MED ONE Stop: 11/22/17 20:04 Last Admin: 11/22/17 20:05 Dose: 100 mls/hr Sodium Chloride (Normal Saline) 100 mls @ 200 mls/hr IV ASDIRECTED [facility] Sodium Chloride (Normal Saline) 100 mls @ 20 mls/hr IV DAILY@1900 [facility] Last Admin: 11/25/17 18:08 Dose: 20 mls/hr Insulin Aspart (Novolog) 0 unit SUBCUT WITHMEALSANDBED [facility]; Protocol Stop: 10/31/17 00:00 Last Admin: 10/30/17 21:02 Dose: 5 units Insulin Aspart (Novolog) 2 unit SUBCUT ONETIME ONE Stop: 10/31/17 20:59 Last Admin: 10/31/17 21:07 Dose: 2 units Insulin Aspart (Novolog) 10 unit SUBCUT ONETIME ONE Stop: 11/12/17 17:44 Last Admin: 11/12/17 18:06 Dose: 10 units Insulin Aspart (Novolog) 0 unit SUBCUT TIDMEALS [facility]; Protocol Last Admin: 12/21/17 17:16 Dose: Not Given Insulin Detemir (Levemir) 44 unit SUBCUT DAILY [facility] Last Admin: 10/30/17 10:10 Dose: Not Given Insulin Detemir (Levemir) 40 unit SUBCUT DAILY [facility] Last Admin: 11/14/17 08:22 Dose: 40 units Insulin Detemir (Levemir) 44 unit SUBCUT DAILY [facility] Last Admin: 11/29/17 11:32 Dose: Not Given Insulin Detemir (Levemir) 34 unit SUBCUT DAILY [facility] Last Admin: 12/02/17 10:11 Dose: Not Given Insulin Detemir (Levemir) 30 unit SUBCUT DAILY [facility] Last Admin: 12/20/17 08:02 Dose: 30 units Insulin Detemir (Levemir) 10 unit SUBCUT ONETIME ONE Stop: 12/20/17 13:01 Last Admin: 12/20/17 14:38 Dose: 10 units Lidocaine/Epinephrine (Xylocaine 1% With Epinephrine 1:100,000) 3 ml INJECT ONETIME ONE Stop: 11/05/17 09:01 Last Admin: 11/05/17 09:00 Dose: 3 ml Loperamide HCl (Imodium) 2 mg PO ASDIRECTED PRN PRN Reason: Diarrhea Last Admin: 11/30/17 05:53 Dose: 2 mg Lorazepam (Ativan) 0.25 mg PO Q8H PRN PRN Reason: Anxiety Last Admin: 12/13/17 18:03 Dose: 0.25 mg Losartan Potassium (Cozaar) 25 mg PO DAILY [facility] Last Admin: 11/27/17 09:05 Dose: 25 mg Losartan Potassium (Cozaar) 50 mg PO DAILY [facility] Last Admin: 12/25/17 08:57 Dose: 50 mg Multivitamins/Minerals (Centrum) 1 tab PO DAILY [facility] Last Admin: 12/20/17 08:03 Dose: 1 tab Multivitamins/Minerals (Centrum) 1 tab PO DAILY@1200 [facility] Last Admin: 12/27/17 11:36 Dose: 1 tab Mupirocin (Bactroban Crm) 1 gm TOP TID [facility] Last Admin: 10/29/17 11:29 Dose: Not Given Mupirocin (Bactroban Oint) 0 gm TOP DAILY [facility] Last Admin: 12/06/17 10:12 Dose: 1 applic Insulin Degludec ( (Tresiba) 44units) 44 units SUBCUT DAILY [facility] Nystatin (Nystop) 0 gm TOP BID [facility] Last Admin: 10/25/17 08:58 Dose: 1 applic Nystatin (Nystop) 0 gm TOP TID [facility] Last Admin: 10/26/17 11:15 Dose: Not Given Nystatin (Nystatin Ointment) 0 gm TOP TID [facility] Last Admin: 11/04/17 15:49 Dose: Not Given Nystatin (Nystatin Ointment) 1 gm TOP DAILY PRN PRN Reason: Rash Last Admin: 12/26/17 08:19 Dose: 1 applic Nystatin (Nystatin Ointment) 1 gm TOP BID [facility] Last Admin: 01/01/18 09:12 Dose: Not Given Nystatin (Nystatin Ointment) 1 gm TOP BID PRN PRN Reason: Rash Olanzapine (Zyprexa) 10 mg PO ASDIRECTED [facility] Olanzapine (Zyprexa) 10 mg PO BEDTIME [facility] Stop: 11/14/17 21:01 Last Admin: 11/14/17 21:28 Dose: 10 mg Olanzapine (Zyprexa) 10 mg PO BEDTIME [facility] Stop: 11/22/17 21:01 Last Admin: 11/22/17 21:41 Dose: 10 mg Omeprazole (Omeprazole) 20 mg PO SUTUTHSA@2100 [facility] Last Admin: 10/23/17 21:24 Dose: 20 mg Omeprazole (Omeprazole) 20 mg PO DAILY@2100 [facility] Last Admin: 12/11/17 20:18 Dose: 20 mg Omeprazole (Omeprazole) 20 mg PO BID [facility] Last Admin: 12/13/17 09:27 Dose: 20 mg Omeprazole (Omeprazole) 20 mg PO BIDAC [facility] Last Admin: 12/17/17 16:45 Dose: 20 mg Oxycodone HCl (Oxycodone) 5 mg PO Q6H [facility] Last Admin: 10/23/17 06:11 Dose: 5 mg Oxycodone HCl (Oxycodone) 5 mg PO Q6H [facility] Last Admin: 10/24/17 06:21 Dose: Not Given Oxycodone HCl (Oxycodone) 5 mg PO BEDTIME [facility] Last Admin: 12/07/17 20:02 Dose: 5 mg Oxycodone HCl (Oxycodone) 5 mg PO ONETIME ONE Stop: 11/23/17 18:12 Last Admin: 11/23/17 18:48 Dose: 5 mg Oxycodone HCl (Oxycodone) 7.5 mg PO BEDTIME [facility] Stop: 12/13/17 23:00 Last Admin: 12/13/17 20:05 Dose: 7.5 mg Oxycodone HCl (Oxycodone) 5 mg PO ONETIME ONE Stop: 12/13/17 17:59 Last Admin: 12/13/17 18:21 Dose: 5 mg Oxycodone HCl (Oxycontin) Confirm Administered Dose 10 mg .ROUTE .STK-MED ONE Stop: 12/31/17 11:25 Last Admin: 12/31/17 11:26 Dose: 10 mg Polysaccharide Iron Complex (Ferrex 150) 150 mg PO DAILY [facility] Last Admin: 12/20/17 08:05 Dose: 150 mg Polysaccharide Iron Complex (Ferrex 150) 150 mg PO DAILY@1200 [facility] Last Admin: 12/27/17 11:36 Dose: 150 mg Prochlorperazine Maleate (Compazine) 10 mg PO QID PRN PRN Reason: Nausea Senna/Docusate Sodium (Senna Plus) 1 tab PO BID PRN PRN Reason: Constipation Last Admin: 10/28/17 08:08 Dose: 1 tab Senna/Docusate Sodium (Senna Plus) 1 tab PO BID [facility] Last Admin: 11/04/17 15:49 Dose: Not Given Senna/Docusate Sodium (Senna Plus) 1 - 2 tab PO DAILY PRN PRN Reason: Constipation Sertraline HCl (Zoloft) 100 mg PO BEDTIME [facility] Last Admin: 01/07/18 20:58 Dose: 100 mg Sodium Chloride ([place] Nasal [place]) 1 ml ALDO QID PRN PRN Reason: Dryness Last Admin: 11/12/17 21:03 Dose: 1 spray Sodium Chloride (Normal Saline) 20 ml FLUSH ASDIRECTED PRN PRN Reason: Other Sodium Chloride (Saline Flush) 20 ml FLUSH Q8H [facility] Last Admin: 11/02/17 10:46 Dose: Not Given Sodium Chloride (Saline Flush) 20 ml FLUSH Q8H [facility] Last Admin: 11/11/17 12:20 Dose: Not Given Zinc Gluconate (Zinc) 50 mg PO DAILY [facility] Last Admin: 12/20/17 08:05 Dose: 50 mg Zinc Gluconate (Zinc) 50 mg PO DAILY@1200 [facility] Last Admin: 12/27/17 11:35 Dose: 50 mg - Exam Quality Assessment: No: Supplemental Oxygen General: Alert, Oriented Neck: Supple Lungs: Clear to Auscultation, Normal Respiratory Effort Cardiovascular: Regular Rate, Regular Rhythm GI/Abdominal Exam: Soft, Abnormal Bowel Sounds (Female) Exam: Deferred Extremities: No Pedal Edema Skin: Other (Ongoing wound VAC therapy) Wound/Incisions: Drainage Psy/Mental Status: Alert, Normal Affect, Depressed - Problem List Review Problem List Initiated/Reviewed/Updated: Yes - Plan Plan:: HPI: This is a 76 year old female who had previously been in swing bed status due to a left humeral fracture and deconditioning. The patient has been recently diagnosed with peritoneal carcinomatosis. The patient was sent up to [facility] on 10/20/17 for abdominal paracentesis and pleurx catheter placement. She had labs done that day which showed a hemoglobin of 6.5. She was then admitted to their hospitalist services. She was given 2 units of PRBCs. She was due for her second cycle of carboplatin and taxol while there and this was completed on 10/21/17. She was also given Neulasta prior to discharge. She has been tolerating her treatment well and has been changed from a weekly protocol to every 3 week protocol. The patient was admitted back to swing bed status for rehabilitation of her fracture and deconditioning. PRIMARY ASSESSMENT/PLAN: Update on rounds, depression seems to have improved since medication adjustments , ongoing wound VAC, patient did have significant constipation requiring digital disimpaction yesterday. Stage IV pressure ulcer to coccyx, POA, ongoing wound VAC therapy, continues with Off loading. Nutritional support, Deconditioning. ongoing physical therapy, pain control prior to PT. Left humeral head fracture. Continue with sling and swath. She was seen by Dr. Singer, orthopedist, on 10/18/17 and it was advised for conservative management to include sling and swath for 6 weeks followed by aggressive therapy for range of motion and strengthening. Will repeat x-rays today to assess routine healing HTN, Continue lopressor recent ARB increased to 75 mg by mouth daily--improved Immunocompromised host. Malignant ascites. pleurx catheter. Anemia due to antineoplastic chemotherapy. Hgb stable at 11.5 Constipation. Continue movantik however add senna S. SECONDARY ASSESSMENT/PLAN: Primary peritoneal carcinomatosis. Followed by Dr. Collier/oncology with ongoing Pleurx abdominal drain. History of endometrial cancer, s/p hysterceomty 2009. CAD, no ischemic picture, stable Aortic stenosis. History of atrial flutter. Type 2 DM. Accuchecks daily. Tresiba switched to levemir daily due to not being available in house. CKD stage 3, stable. GFR 49, creatinine 0.55. We'll reassess Hyperlipidemia. Continue simvastatin. Obesity. Strip gout, allopurinol 100 mg daily. Diabetic retinopathy. Depression. Continue zoloft. GERD. Continue omeprazole. OAB. Osteoarthritis. History of hypercalcemia. Calcium 8.3 Recent Hypoalbuminemia now normalized at 3.2 DVT prophylaxis. Score of 6, Continue with phan stockings. Medical decision making; ongoing wound VAC therapy as long as ongoing healing and exudative. Re-x-ray left humerus today. Add clarissa S. Continue physical therapy. CBC
[2018-01-12] MEDS: oxyCODONE 5 MG Tab PO PRN (10:58)
[2018-01-12] MEDS: Aspirin 81 MG Tab.EC PO SCH (21:07)
[2018-01-12] MEDS: Sertraline 50 MG Tab PO SCH (21:08)
[2018-01-12] MEDS: Simvastatin 20 MG Tab PO SCH (21:08)
[2018-01-13] MEDS: Acetaminophen 500 MG Tab PO SCH ×4 (01:11→21:46)
[2018-01-13] MEDS: Omeprazole 20 MG Cap.CR PO SCH ×2 (05:53→16:38)
[2018-01-13] MEDS: Furosemide 20 MG Tab PO SCH ×2 (06:53→16:38)
[2018-01-13] MEDS: Insulin Detemir 100 Units/ML 3 ML Pen SUBCUT SCH (08:21)
[2018-01-13] MEDS: Diclofenac Sodium 1% Gel 100 GM Tube TOP SCH ×4 (08:22→21:45)
[2018-01-13] MEDS: Polyethylene Glycol 3350 Powder 17 GM Packet PO PRN (08:24)
[2018-01-13] MEDS: Zinc (Zinc Gluconate) 50 MG Tab PO SCH (08:25)
[2018-01-13] MEDS: Losartan 50 MG Tab PO SCH (08:25)
[2018-01-13] MEDS: Iron Polysaccharides Complex 150 MG Cap PO SCH (08:26)
[2018-01-13] MEDS: Metoprolol Tartrate 50 MG Tab PO SCH ×2 (08:26→21:55)
[2018-01-13] MEDS: Naloxegol Oxalate 25 MG Tab PO SCH (08:26)
[2018-01-13] MEDS: Docusate Sodium 100 MG Cap PO SCH (08:27)
[2018-01-13] MEDS: Allopurinol 100 MG Tab PO SCH (08:27)
[2018-01-13] MEDS: Multivitamins with Minerals/Iron/Folic Acid/Lycopene Tab PO SCH (08:27)
[2018-01-13] MEDS: buPROPion 150 MG Tab.ER PO SCH (08:27)
[2018-01-13] MEDS: oxyCODONE ER 10 MG TAB.ER PO SCH ×2 (09:30→21:52)
[2018-01-13] MEDS: Simvastatin 20 MG Tab PO SCH (21:45)
[2018-01-13] MEDS: Aspirin 81 MG Tab.EC PO SCH (21:45)
[2018-01-13] MEDS: Sertraline 50 MG Tab PO SCH (21:46)
[2018-01-14] MEDS: Acetaminophen 500 MG Tab PO SCH ×4 (00:20→23:57)
[2018-01-14] MEDS: Omeprazole 20 MG Cap.CR PO SCH ×2 (06:23→16:43)
[2018-01-14] MEDS: Furosemide 20 MG Tab PO SCH (06:23)
[2018-01-14] MEDS: Losartan 50 MG Tab PO SCH (09:07)
[2018-01-14] MEDS: Multivitamins with Minerals/Iron/Folic Acid/Lycopene Tab PO SCH (09:07)
[2018-01-14] MEDS: Docusate Sodium 100 MG Cap PO SCH (09:07)
[2018-01-14] MEDS: Insulin Detemir 100 Units/ML 3 ML Pen SUBCUT SCH (09:08)
[2018-01-14] MEDS: Iron Polysaccharides Complex 150 MG Cap PO SCH (09:08)
[2018-01-14] MEDS: Naloxegol Oxalate 25 MG Tab PO SCH (09:09)
[2018-01-14] MEDS: Metoprolol Tartrate 50 MG Tab PO SCH ×2 (09:09→21:34)
[2018-01-14] MEDS: buPROPion 150 MG Tab.ER PO SCH (09:10)
[2018-01-14] MEDS: Diclofenac Sodium 1% Gel 100 GM Tube TOP SCH ×4 (09:10→21:38)
[2018-01-14] MEDS: oxyCODONE ER 10 MG TAB.ER PO SCH ×2 (09:10→21:34)
[2018-01-14] MEDS: Zinc (Zinc Gluconate) 50 MG Tab PO SCH (09:11)
[2018-01-14] MEDS: Allopurinol 100 MG Tab PO SCH (09:11)
[2018-01-14] MEDS: Sertraline 50 MG Tab PO SCH (21:33)
[2018-01-14] MEDS: Aspirin 81 MG Tab.EC PO SCH (21:33)
[2018-01-14] MEDS: Simvastatin 20 MG Tab PO SCH (21:34)
[2018-01-15] MEDS: Omeprazole 20 MG Cap.CR PO SCH ×2 (06:14→16:00)
[2018-01-15] MEDS: Acetaminophen 500 MG Tab PO SCH ×3 (06:15→22:00)
[2018-01-15] MEDS: Furosemide 20 MG Tab PO SCH ×2 (06:15→16:00)
[2018-01-15] MEDS: Iron Polysaccharides Complex 150 MG Cap PO SCH (08:12)
[2018-01-15] MEDS: Naloxegol Oxalate 25 MG Tab PO SCH (08:12)
[2018-01-15] MEDS: Docusate Sodium 100 MG Cap PO SCH (08:12)
[2018-01-15] MEDS: Metoprolol Tartrate 50 MG Tab PO SCH ×2 (08:12→20:44)
[2018-01-15] MEDS: Zinc (Zinc Gluconate) 50 MG Tab PO SCH (08:12)
[2018-01-15] MEDS: Multivitamins with Minerals/Iron/Folic Acid/Lycopene Tab PO SCH (08:12)
[2018-01-15] MEDS: Allopurinol 100 MG Tab PO SCH (08:12)
[2018-01-15] MEDS: buPROPion 150 MG Tab.ER PO SCH (08:13)
[2018-01-15] MEDS: Losartan 50 MG Tab PO SCH (08:13)
[2018-01-15] MEDS: Insulin Detemir 100 Units/ML 3 ML Pen SUBCUT SCH (08:13)
[2018-01-15] MEDS: oxyCODONE ER 10 MG TAB.ER PO SCH ×2 (08:13→20:45)
[2018-01-15] MEDS: Diclofenac Sodium 1% Gel 100 GM Tube TOP SCH ×4 (08:14→20:44)
[2018-01-15] MEDS: Aspirin 81 MG Tab.EC PO SCH (20:44)
[2018-01-15] MEDS: Sertraline 50 MG Tab PO SCH (20:45)
[2018-01-15] MEDS: Simvastatin 20 MG Tab PO SCH (20:45)
[2018-01-16] MEDS: Omeprazole 20 MG Cap.CR PO SCH ×2 (05:13→16:14)
[2018-01-16] MEDS: Furosemide 20 MG Tab PO SCH ×2 (06:41→16:14)
[2018-01-16] MEDS: Acetaminophen 500 MG Tab PO SCH ×3 (06:41→22:49)
[2018-01-16] MEDS: Allopurinol 100 MG Tab PO SCH (08:04)
[2018-01-16] MEDS: buPROPion 150 MG Tab.ER PO SCH (08:04)
[2018-01-16] MEDS: Iron Polysaccharides Complex 150 MG Cap PO SCH (08:05)
[2018-01-16] MEDS: Losartan 50 MG Tab PO SCH (08:05)
[2018-01-16] MEDS: Naloxegol Oxalate 25 MG Tab PO SCH (08:05)
[2018-01-16] MEDS: Multivitamins with Minerals/Iron/Folic Acid/Lycopene Tab PO SCH (08:05)
[2018-01-16] MEDS: Docusate Sodium 100 MG Cap PO SCH (08:05)
[2018-01-16] MEDS: Metoprolol Tartrate 50 MG Tab PO SCH ×2 (08:05→20:52)
[2018-01-16] MEDS: Zinc (Zinc Gluconate) 50 MG Tab PO SCH (08:05)
[2018-01-16] MEDS: oxyCODONE ER 10 MG TAB.ER PO SCH ×2 (08:06→20:53)
[2018-01-16] MEDS: Insulin Detemir 100 Units/ML 3 ML Pen SUBCUT SCH (08:06)
[2018-01-16] MEDS: Diclofenac Sodium 1% Gel 100 GM Tube TOP SCH ×4 (08:07→20:53)
[2018-01-16] MEDS: Prochlorperazine 5 MG Tab PO PRN (20:25)
[2018-01-16] MEDS: Aspirin 81 MG Tab.EC PO SCH (20:53)
[2018-01-16] MEDS: Simvastatin 20 MG Tab PO SCH (20:53)
[2018-01-16] MEDS: Sertraline 50 MG Tab PO SCH (20:53)
[2018-01-17] MEDS: oxyCODONE 5 MG Tab PO PRN (04:23)
[2018-01-17] MEDS: Acetaminophen 500 MG Tab PO SCH ×3 (06:14→22:14)
[2018-01-17] MEDS: Furosemide 20 MG Tab PO SCH (06:14)
[2018-01-17] MEDS: Omeprazole 20 MG Cap.CR PO SCH ×2 (06:14→17:47)
[2018-01-17] MEDS: Insulin Detemir 100 Units/ML 3 ML Pen SUBCUT SCH (08:18)
[2018-01-17] MEDS: Diclofenac Sodium 1% Gel 100 GM Tube TOP SCH ×4 (08:18→20:23)
[2018-01-17] MEDS: oxyCODONE ER 10 MG TAB.ER PO SCH ×2 (08:19→20:20)
[2018-01-17] MEDS: Docusate Sodium 100 MG Cap PO SCH (08:19)
[2018-01-17] MEDS: Naloxegol Oxalate 25 MG Tab PO SCH (08:19)
[2018-01-17] MEDS: Zinc (Zinc Gluconate) 50 MG Tab PO SCH (08:19)
[2018-01-17] MEDS: Multivitamins with Minerals/Iron/Folic Acid/Lycopene Tab PO SCH (08:20)
[2018-01-17] MEDS: Allopurinol 100 MG Tab PO SCH (08:20)
[2018-01-17] MEDS: Iron Polysaccharides Complex 150 MG Cap PO SCH (08:20)
[2018-01-17] MEDS: buPROPion 150 MG Tab.ER PO SCH (08:21)
[2018-01-17] MEDS: Metoprolol Tartrate 50 MG Tab PO SCH ×2 (08:26→20:19)
[2018-01-17] MEDS: Losartan 50 MG Tab PO SCH (08:26)
[2018-01-17] MEDS: Aspirin 81 MG Tab.EC PO SCH (20:19)
[2018-01-17] MEDS: Simvastatin 20 MG Tab PO SCH (20:20)
[2018-01-17] MEDS: Sertraline 50 MG Tab PO SCH (20:20)
[2018-01-17] MEDS: Simethicone 80 MG Tab.Chew PO PRN (22:15)
[2018-01-18] MEDS: Omeprazole 20 MG Cap.CR PO SCH ×2 (05:07→16:04)
[2018-01-18] MEDS: Acetaminophen 500 MG Tab PO SCH ×3 (06:12→23:46)
[2018-01-18] MEDS: Furosemide 20 MG Tab PO SCH ×2 (06:12→16:03)
[2018-01-18] MEDS: Simethicone 80 MG Tab.Chew PO PRN (06:13)
[2018-01-18] MEDS: Docusate Sodium 100 MG Cap PO SCH (08:00)
[2018-01-18] MEDS: Zinc (Zinc Gluconate) 50 MG Tab PO SCH (08:00)
[2018-01-18] MEDS: Allopurinol 100 MG Tab PO SCH (08:00)
[2018-01-18] MEDS: Multivitamins with Minerals/Iron/Folic Acid/Lycopene Tab PO SCH (08:00)
[2018-01-18] MEDS: buPROPion 150 MG Tab.ER PO SCH (08:00)
[2018-01-18] MEDS: Iron Polysaccharides Complex 150 MG Cap PO SCH (08:01)
[2018-01-18] MEDS: Metoprolol Tartrate 50 MG Tab PO SCH ×2 (08:01→20:44)
[2018-01-18] MEDS: Naloxegol Oxalate 25 MG Tab PO SCH (08:01)
[2018-01-18] MEDS: oxyCODONE ER 10 MG TAB.ER PO SCH ×2 (08:01→20:51)
[2018-01-18] MEDS: Insulin Detemir 100 Units/ML 3 ML Pen SUBCUT SCH (08:02)
[2018-01-18] MEDS: Losartan 50 MG Tab PO SCH (08:02)
[2018-01-18] MEDS: Diclofenac Sodium 1% Gel 100 GM Tube TOP SCH ×4 (08:03→20:45)
[2018-01-18] MEDS: Aluminum Hydroxide/Magnesium Hydroxide Susp 30 ML Cup PO PRN (12:18)
[2018-01-18] MEDS: Aspirin 81 MG Tab.EC PO SCH (20:41)
[2018-01-18] MEDS: Sertraline 50 MG Tab PO SCH (20:46)
[2018-01-18] MEDS: Simvastatin 20 MG Tab PO SCH (20:46)
[2018-01-19] MEDS: Furosemide 20 MG Tab PO SCH (06:32)
[2018-01-19] MEDS: Acetaminophen 500 MG Tab PO SCH ×3 (06:33→22:34)
[2018-01-19] MEDS: Omeprazole 20 MG Cap.CR PO SCH ×2 (06:33→17:08)
[2018-01-19] MEDS: oxyCODONE ER 10 MG TAB.ER PO SCH ×3 (07:33→20:37)
[2018-01-19] MEDS: buPROPion 150 MG Tab.ER PO SCH (08:00)
[2018-01-19] MEDS: Naloxegol Oxalate 25 MG Tab PO SCH (08:00)
[2018-01-19] MEDS: Docusate Sodium 100 MG Cap PO SCH (08:00)
[2018-01-19] MEDS: Zinc (Zinc Gluconate) 50 MG Tab PO SCH (08:00)
[2018-01-19] MEDS: Allopurinol 100 MG Tab PO SCH (08:00)
[2018-01-19] MEDS: Iron Polysaccharides Complex 150 MG Cap PO SCH (08:01)
[2018-01-19] MEDS: Metoprolol Tartrate 50 MG Tab PO SCH ×2 (08:01→20:37)
[2018-01-19] MEDS: Multivitamins with Minerals/Iron/Folic Acid/Lycopene Tab PO SCH (08:01)
[2018-01-19] MEDS: Losartan 50 MG Tab PO SCH (08:02)
[2018-01-19] MEDS: Insulin Detemir 100 Units/ML 3 ML Pen SUBCUT SCH (08:03)
[2018-01-19] MEDS: Diclofenac Sodium 1% Gel 100 GM Tube TOP SCH ×4 (08:05→20:36)
--- NOTE | 2018-01-19 10:33 | PCM.PN ---
- General Info Date of Service: 01/19/18 Functional Status: Reports: Pain Controlled, Tolerating Diet. Denies: New Symptoms - Review of Systems General: Denies: Fever Pulmonary: Reports: No Symptoms Cardiovascular: Reports: No Symptoms Skin: Reports: Other (wound to coccyx area with ongoing wound-vac. ) Neurological: Denies: Confusion Psychiatric: Denies: Confusion, Agitation - Patient Data Vitals - Most Recent: Last Vital Signs Temp 98.4 F 01/19/18 06:38 Pulse 74 01/19/18 08:01 Resp 20 01/19/18 06:38 BP 175/73 H 01/19/18 08:02 Pulse Ox 93 L 01/19/18 06:38 Weight - Most Recent: 200 lb 5 oz I&O - Last 24 Hours: Intake & Output 01/18/18 01/19/18 01/19/18 22:59 06:59 14:59 Intake Total 500 0 Balance 500 0 Lab Results Last 24 Hours: Laboratory Results - last 24 hr 01/18/18 01/18/18 01/19/18 Range/Units 06:11 17:19 06:31 POC Glucose 202 H 225 H 168 H (74-106) mg/dl Med Orders - Current: Current Medications Acetaminophen (Tylenol Extra Strength) 1,000 mg PO Q8H [facility] Last Admin: 01/19/18 06:33 Dose: 1,000 mg Al Hydroxide/Mg Hydroxide (Mag-Al Susp) 30 ml PO Q6H PRN PRN Reason: Heartburn Last Admin: 01/18/18 12:18 Dose: 30 ml Allopurinol (Zyloprim) 100 mg PO DAILY [facility] Last Admin: 01/19/18 08:00 Dose: 100 mg Aspirin (Halfprin) 81 mg PO BEDTIME [facility] Last Admin: 01/18/18 20:41 Dose: 81 mg Bisacodyl (Dulcolax) 10 mg RECTAL DAILY PRN PRN Reason: Constipation Last Admin: 01/08/18 11:45 Dose: 10 mg Bupropion HCl (Wellbutrin Xl) 150 mg PO DAILY [facility] Last Admin: 01/19/18 08:00 Dose: 150 mg Diclofenac Sodium (Voltaren 1% Gel) 1 gm TOP QID [facility] Last Admin: 01/19/18 08:05 Dose: 1 applic Docusate Sodium (Colace) 100 mg PO DAILY [facility] Last Admin: 01/19/18 08:00 Dose: 100 mg Furosemide (Lasix) 20 mg PO SuTuThSa@1500 [facility] Last Admin: 01/18/18 16:03 Dose: 20 mg Furosemide (Lasix) 20 mg PO DAILY@0700 [facility] Last Admin: 01/19/18 06:32 Dose: 20 mg Insulin Detemir (Levemir) 40 unit SUBCUT DAILY [facility] Last Admin: 01/19/18 08:03 Dose: 40 units Losartan Potassium (Cozaar) 100 mg PO DAILY [facility] Last Admin: 01/19/18 08:02 Dose: 100 mg Metoprolol Tartrate (Lopressor) 50 mg PO BID [facility] Last Admin: 01/19/18 08:01 Dose: 50 mg Multivitamins/Minerals (Centrum) 1 tab PO DAILY [facility] Last Admin: 01/19/18 08:01 Dose: 1 tab Naloxegol (Movantik) 25 mg PO DAILY [facility] Last Admin: 01/19/18 08:00 Dose: 25 mg Omeprazole (Omeprazole) 20 mg PO DAILY@0600,1700 [facility] Last Admin: 01/19/18 06:33 Dose: 20 mg Ondansetron HCl (Zofran Odt) 8 mg PO TID PRN PRN Reason: nausea or vomitting Last Admin: 01/02/18 10:38 Dose: 8 mg Oxycodone HCl (Oxycodone) 5 mg PO Q6H PRN PRN Reason: Pain Last Admin: 01/17/18 04:23 Dose: 5 mg Oxycodone HCl (Oxycontin) 10 mg PO Q12H [facility] Last Admin: 01/19/18 09:24 Dose: Not Given Polyethylene Glycol (Miralax) 17 gm PO DAILY PRN PRN Reason: Constipation Last Admin: 01/13/18 08:24 Dose: 17 gm Polysaccharide Iron Complex (Ferrex 150) 150 mg PO DAILY [facility] Last Admin: 01/19/18 08:01 Dose: 150 mg Prochlorperazine Maleate (Compazine) 10 mg PO QID PRN PRN Reason: Nausea Last Admin: 01/16/18 20:25 Dose: 10 mg Promethazine HCl (Phenergan) 25 mg IM Q6H PRN PRN Reason: Nausea Last Admin: 01/02/18 18:21 Dose: 25 mg Ramelteon (Rozerem) 8 mg PO BEDTIME [facility] Last Admin: 01/18/18 20:45 Dose: 8 mg Senna/Docusate Sodium (Senna Plus) 1 tab PO BEDTIME [facility] Last Admin: 01/18/18 20:45 Dose: 1 tab Sertraline HCl (Zoloft) 150 mg PO BEDTIME [facility] Last Admin: 01/18/18 20:46 Dose: 150 mg Simethicone (Simethicone) 80 mg PO Q6H PRN PRN Reason: Heartburn Last Admin: 01/18/18 06:13 Dose: 80 mg Simvastatin (Zocor) 40 mg PO BEDTIME [facility] Last Admin: 01/18/18 20:46 Dose: 40 mg Zinc Gluconate (Zinc) 50 mg PO DAILY [facility] Last Admin: 01/19/18 08:00 Dose: 50 mg Discontinued Medications Acetaminophen (Tylenol Extra Strength) 1,000 mg PO Q8H [facility] Last Admin: 10/23/17 02:00 Dose: 1,000 mg Acetaminophen (Tylenol Extra Strength) 1,000 mg PO Q8H [facility] Last Admin: 11/22/17 15:12 Dose: 1,000 mg Acetaminophen (Tylenol) Confirm Administered Dose 975 mg .ROUTE .STK-MED ONE Stop: 11/08/17 07:36 Last Admin: 11/08/17 08:28 Dose: 975 mg Hydrocodone Bitart/Acetaminophen ([place] 325-5 Mg) 1 - 2 tab PO Q4H PRN PRN Reason: Moderate Pain Last Admin: 10/24/17 19:26 Dose: 1 tab Al Hydroxide/Mg Hydroxide (Mag-Al Susp) Confirm Administered Dose 30 ml .ROUTE .STK-MED ONE Stop: 01/09/18 21:49 Last Admin: 01/09/18 22:00 Dose: 30 ml Al Hydroxide/Mg Hydroxide (Mag-Al Susp) 30 ml PO Q6H PRN PRN Reason: Heartburn Last Admin: 01/09/18 22:00 Dose: 30 ml Bacitracin (Bacitracin Oint) 1 gm TOP DAILY PRN PRN Reason: Rash Bisacodyl (Dulcolax) 10 mg RECTAL ONETIME ONE Stop: 12/21/17 04:02 Last Admin: 12/21/17 04:17 Dose: Not Given Bisacodyl (Dulcolax) Confirm Administered Dose 10 mg .ROUTE .STK-MED ONE Stop: 01/08/18 11:37 Last Admin: 01/08/18 16:15 Dose: Not Given Calcium Carbonate/Glycine (Tums) 500 mg PO TID PRN PRN Reason: Indigestion Ciprofloxacin (Ciprofloxacin Hcl) 500 mg PO BID [facility] Stop: 12/24/17 21:01 Last Admin: 12/24/17 21:04 Dose: 500 mg Al Hydroxide/Mg Hydroxide 40 ml/ Diphenhydramine HCl 12.5 mg/ Lidocaine HCl 40 ml 0 ml PO TID PRN PRN Reason: mouth sores/burning Last Admin: 10/28/17 08:11 Dose: 10 ml Cranberry (Azo Cranberry) 1 each PO BEDTIME [facility] Last Admin: 11/07/17 21:46 Dose: Not Given Furosemide (Lasix) 20 mg PO DAILY [facility] Last Admin: 12/13/17 09:25 Dose: 20 mg Furosemide (Lasix) 20 mg PO SUTUTHSA@1700 [facility] Last Admin: 12/12/17 16:01 Dose: 20 mg Heparin Sodium (Porcine) (Heparin Lock Flush 100 Units/Ml) 500 units FLUSH ASDIRECTED PRN PRN Reason: Other Cefepime HCl 1 gm/ Sodium (Chloride) 50 mls @ 100 mls/hr IV Q8H [facility] Last Admin: 11/01/17 18:52 Dose: Not Given Cefepime HCl 1 gm/ Sodium (Chloride) 50 mls @ 100 mls/hr IV Q24H [facility] Last Admin: 11/07/17 20:32 Dose: 100 mls/hr Sodium Chloride (Normal Saline) Confirm Administered Dose 50 mls @ as directed .ROUTE .STK-MED ONE Stop: 11/02/17 22:10 Last Admin: 11/02/17 23:15 Dose: 100 mls/hr Sodium Chloride (Normal Saline) Confirm Administered Dose 50 mls @ as directed .ROUTE .[facility]-MED ONE Stop: 11/03/17 21:46 Last Admin: 11/03/17 21:56 Dose: Not Given Sodium Chloride (Normal Saline) 50 mls @ 50 mls/hr IV ASDIRECTED [facility] Albumin Human (Flexbumin 25%) 100 mls @ 50 mls/hr IV ONETIME ONE Stop: 11/22/17 13:59 Last Admin: 11/22/17 13:07 Dose: 50 mls/hr Sodium Chloride (Normal Saline) 250 mls @ 125 mls/hr IV ASDIRECTED [facility] Stop: 11/22/17 21:00 Last Admin: 11/22/17 15:40 Dose: 125 mls/hr Ciprofloxacin/Dextrose (Cipro In D5w 400 Mg/200 Ml) 200 mls @ 200 mls/hr IV Q12H [facility] Last Admin: 11/26/17 06:13 Dose: 200 mls/hr Sodium Chloride (Normal Saline) Confirm Administered Dose 100 mls @ as directed .ROUTE .STK-MED ONE Stop: 11/22/17 20:04 Last Admin: 11/22/17 20:05 Dose: 100 mls/hr Sodium Chloride (Normal Saline) 100 mls @ 200 mls/hr IV ASDIRECTED [facility] Sodium Chloride (Normal Saline) 100 mls @ 20 mls/hr IV DAILY@1900 [facility] Last Admin: 11/25/17 18:08 Dose: 20 mls/hr Insulin Aspart (Novolog) 0 unit SUBCUT WITHMEALSANDBED [facility]; Protocol Stop: 10/31/17 00:00 Last Admin: 10/30/17 21:02 Dose: 5 units Insulin Aspart (Novolog) 2 unit SUBCUT ONETIME ONE Stop: 10/31/17 20:59 Last Admin: 10/31/17 21:07 Dose: 2 units Insulin Aspart (Novolog) 10 unit SUBCUT ONETIME ONE Stop: 11/12/17 17:44 Last Admin: 11/12/17 18:06 Dose: 10 units Insulin Aspart (Novolog) 0 unit SUBCUT TIDMEALS [facility]; Protocol Last Admin: 12/21/17 17:16 Dose: Not Given Insulin Detemir (Levemir) 44 unit SUBCUT DAILY [facility] Last Admin: 10/30/17 10:10 Dose: Not Given Insulin Detemir (Levemir) 40 unit SUBCUT DAILY [facility] Last Admin: 11/14/17 08:22 Dose: 40 units Insulin Detemir (Levemir) 44 unit SUBCUT DAILY [facility] Last Admin: 11/29/17 11:32 Dose: Not Given Insulin Detemir (Levemir) 34 unit SUBCUT DAILY [facility] Last Admin: 12/02/17 10:11 Dose: Not Given Insulin Detemir (Levemir) 30 unit SUBCUT DAILY [facility] Last Admin: 12/20/17 08:02 Dose: 30 units Insulin Detemir (Levemir) 10 unit SUBCUT ONETIME ONE Stop: 12/20/17 13:01 Last Admin: 12/20/17 14:38 Dose: 10 units Lidocaine/Epinephrine (Xylocaine 1% With Epinephrine 1:100,000) 3 ml INJECT ONETIME ONE Stop: 11/05/17 09:01 Last Admin: 11/05/17 09:00 Dose: 3 ml Loperamide HCl (Imodium) 2 mg PO ASDIRECTED PRN PRN Reason: Diarrhea Last Admin: 11/30/17 05:53 Dose: 2 mg Lorazepam (Ativan) 0.25 mg PO Q8H PRN PRN Reason: Anxiety Last Admin: 12/13/17 18:03 Dose: 0.25 mg Losartan Potassium (Cozaar) 25 mg PO DAILY [facility] Last Admin: 11/27/17 09:05 Dose: 25 mg Losartan Potassium (Cozaar) 50 mg PO DAILY [facility] Last Admin: 12/25/17 08:57 Dose: 50 mg Losartan Potassium (Cozaar) 75 mg PO DAILY [facility] Last Admin: 01/17/18 08:26 Dose: 75 mg Magnesium Hydroxide (Milk Of Magnesia) 30 ml PO DAILY PRN PRN Reason: Constipation Last Admin: 10/26/17 09:10 Dose: 30 ml Multivitamins/Minerals (Centrum) 1 tab PO DAILY [facility] Last Admin: 12/20/17 08:03 Dose: 1 tab Multivitamins/Minerals (Centrum) 1 tab PO DAILY@1200 [facility] Last Admin: 12/27/17 11:36 Dose: 1 tab Mupirocin (Bactroban Crm) 1 gm TOP TID [facility] Last Admin: 10/29/17 11:29 Dose: Not Given Mupirocin (Bactroban Oint) 0 gm TOP DAILY [facility] Last Admin: 12/06/17 10:12 Dose: 1 applic Insulin Degludec ( (Tresiba) 44units) 44 units SUBCUT DAILY [facility] Nystatin (Nystop) 0 gm TOP BID [facility] Last Admin: 10/25/17 08:58 Dose: 1 applic Nystatin (Nystop) 0 gm TOP TID [facility] Last Admin: 10/26/17 11:15 Dose: Not Given Nystatin (Nystatin Ointment) 0 gm TOP TID [facility] Last Admin: 11/04/17 15:49 Dose: Not Given Nystatin (Nystatin Ointment) 1 gm TOP DAILY PRN PRN Reason: Rash Last Admin: 12/26/17 08:19 Dose: 1 applic Nystatin (Nystatin Ointment) 1 gm TOP BID [facility] Last Admin: 01/01/18 09:12 Dose: Not Given Nystatin (Nystatin Ointment) 1 gm TOP BID PRN PRN Reason: Rash Nystatin (Nystatin Ointment) 0 gm TOP BID PRN PRN Reason: Rash Olanzapine (Zyprexa) 10 mg PO ASDIRECTED [facility] Olanzapine (Zyprexa) 10 mg PO BEDTIME [facility] Stop: 11/14/17 21:01 Last Admin: 11/14/17 21:28 Dose: 10 mg Olanzapine (Zyprexa) 10 mg PO BEDTIME [facility] Stop: 11/22/17 21:01 Last Admin: 11/22/17 21:41 Dose: 10 mg Omeprazole (Omeprazole) 20 mg PO SUTUTHSA@2100 [facility] Last Admin: 10/23/17 21:24 Dose: 20 mg Omeprazole (Omeprazole) 20 mg PO DAILY@2100 [facility] Last Admin: 12/11/17 20:18 Dose: 20 mg Omeprazole (Omeprazole) 20 mg PO BID [facility] Last Admin: 12/13/17 09:27 Dose: 20 mg Omeprazole (Omeprazole) 20 mg PO BIDAC [facility] Last Admin: 12/17/17 16:45 Dose: 20 mg Oxycodone HCl (Oxycodone) 5 mg PO Q6H [facility] Last Admin: 10/23/17 06:11 Dose: 5 mg Oxycodone HCl (Oxycodone) 5 mg PO Q6H [facility] Last Admin: 10/24/17 06:21 Dose: Not Given Oxycodone HCl (Oxycodone) 5 mg PO BEDTIME [facility] Last Admin: 12/07/17 20:02 Dose: 5 mg Oxycodone HCl (Oxycodone) 5 mg PO ONETIME ONE Stop: 11/23/17 18:12 Last Admin: 11/23/17 18:48 Dose: 5 mg Oxycodone HCl (Oxycodone) 7.5 mg PO BEDTIME [facility] Stop: 12/13/17 23:00 Last Admin: 12/13/17 20:05 Dose: 7.5 mg Oxycodone HCl (Oxycodone) 5 mg PO ONETIME ONE Stop: 12/13/17 17:59 Last Admin: 12/13/17 18:21 Dose: 5 mg Oxycodone HCl (Oxycontin) Confirm Administered Dose 10 mg .ROUTE .STK-MED ONE Stop: 12/31/17 11:25 Last Admin: 12/31/17 11:26 Dose: 10 mg Polysaccharide Iron Complex (Ferrex 150) 150 mg PO DAILY [facility] Last Admin: 12/20/17 08:05 Dose: 150 mg Polysaccharide Iron Complex (Ferrex 150) 150 mg PO DAILY@1200 [facility] Last Admin: 12/27/17 11:36 Dose: 150 mg Prochlorperazine Maleate (Compazine) 10 mg PO QID PRN PRN Reason: Nausea Senna/Docusate Sodium (Senna Plus) 1 tab PO BID PRN PRN Reason: Constipation Last Admin: 10/28/17 08:08 Dose: 1 tab Senna/Docusate Sodium (Senna Plus) 1 tab PO BID [facility] Last Admin: 11/04/17 15:49 Dose: Not Given Senna/Docusate Sodium (Senna Plus) 1 - 2 tab PO DAILY PRN PRN Reason: Constipation Sertraline HCl (Zoloft) 100 mg PO BEDTIME [facility] Last Admin: 01/07/18 20:58 Dose: 100 mg Sodium Chloride ([place] Nasal [place]) 1 ml ALDO QID PRN PRN Reason: Dryness Last Admin: 11/12/17 21:03 Dose: 1 spray Sodium Chloride (Normal Saline) 20 ml FLUSH ASDIRECTED PRN PRN Reason: Other Sodium Chloride (Saline Flush) 20 ml FLUSH Q8H [facility] Last Admin: 11/02/17 10:46 Dose: Not Given Sodium Chloride (Saline Flush) 20 ml FLUSH Q8H [facility] Last Admin: 11/11/17 12:20 Dose: Not Given Zinc Gluconate (Zinc) 50 mg PO DAILY [facility] Last Admin: 12/20/17 08:05 Dose: 50 mg Zinc Gluconate (Zinc) 50 mg PO DAILY@1200 [facility] Last Admin: 12/27/17 11:35 Dose: 50 mg - Exam Quality Assessment: No: Supplemental Oxygen General: Alert, Oriented Skin: Moist Wound/Incisions: No Drainage, Decubitis, Other (Ongoing wound VAC, nurses reporting very little if any drainage, becoming more shallow base,) - Problem List Review Problem List Initiated/Reviewed/Updated: Yes - Plan Plan:: HPI: This is a 76 year old female who had previously been in swing bed status due to a left humeral fracture and deconditioning. The patient has been recently diagnosed with peritoneal carcinomatosis. The patient was sent up to [facility] on 10/20/17 for abdominal paracentesis and pleurx catheter placement. She had labs done that day which showed a hemoglobin of 6.5. She was then admitted to their hospitalist services. She was given 2 units of PRBCs. She was due for her second cycle of carboplatin and taxol while there and this was completed on 10/21/17. She was also given Neulasta prior to discharge. She has been tolerating her treatment well and has been changed from a weekly protocol to every 3 week protocol. The patient was admitted back to swing bed status for rehabilitation of her fracture and deconditioning. 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 --Change setting intermittent, hopes to stimulate faster granulation of tissue formation. May need graft or surgical closure --Reduce pressure to 100 --Reassess ongoing need for wound VAC therapy in 1 week however due to observed undermining/sinus in wound, repeated need for sharp and/or surgical debridement , along with little to no drainage likely this will have to be discontinued. In the meantime we'll continue with NPWT in order to promote moist wound healing , reduction of swelling and interstitial fluid, increase local perfusion in hopes to approximate wound edges, reduce any bacterial load, help to promote granulation of tissue formation and due to the location of her wound it's important to have ongoing occlusion of wound from environmental contaminants due to location. Left humeral head fracture. Update. Repeat x-rays 01/13/2018 concerning for increased inferior displacement left shoulder. Consulted with orthopedics and likely patient not a good candidate for any surgical repair due to her debilitated state, and cancer. however we'll consider follow-up with Dr. Ferrell's orthopedics outpatient once patient is improved optimized state in her overall care. continue with ROM and strengthening. Deconditioning. ongoing physical therapy, pain control prior to PT. HTN, Continue lopressor recent ARB increased to 75 mg by mouth daily--improved Immunocompromised host. Malignant ascites. pleurx catheter. Anemia due to antineoplastic chemotherapy. Hgb stable at 11.5 Constipation. Continue movantik however add senna S. SECONDARY ASSESSMENT/PLAN: Primary peritoneal carcinomatosis. Followed by Dr. Collier/oncology with ongoing Pleurx abdominal drain. History of endometrial cancer, s/p hysterceomty 2009. CAD, no ischemic picture, stable Aortic stenosis. History of atrial flutter. Type 2 DM. Accuchecks daily. Tresiba switched to levemir daily due to not being available in house. CKD stage 3, stable. GFR 49, creatinine 0.55. We'll reassess Hyperlipidemia. Continue simvastatin. Obesity. Strip gout, allopurinol 100 mg daily. Diabetic retinopathy. Depression. Continue zoloft. GERD. Continue omeprazole. OAB. Osteoarthritis. History of hypercalcemia. Calcium 8.3 Recent Hypoalbuminemia now normalized at 3.2 DVT prophylaxis. Score of 6, Continue with phan stockings. Medical decision making; one more week of NPWT and then reassess ongoing need. Reduce pressure to 100 and Change setting to intermittent, hopes to stimulate faster granulation of tissue formation. May need graft or surgical closure, Reassess ongoing need for wound VAC therapy in 1 week however due to observed undermining/sinus in wound, repeated need for sharp and/or surgical debridement , along with little to no drainage likely this will have to be discontinued. In the meantime we'll continue with NPWT in order to promote moist wound healing , reduction of swelling and interstitial fluid, increase local perfusion in hopes to approximate wound edges, reduce any bacterial load, help to promote granulation of tissue formation and due to the location of her wound it's important to have ongoing occlusion of wound from environmental contaminants due to location.
[2018-01-19] MEDS: Polyethylene Glycol 3350 Powder 17 GM Packet PO PRN (14:02)
[2018-01-19] MEDS: Simvastatin 20 MG Tab PO SCH (20:36)
[2018-01-19] MEDS: Sertraline 50 MG Tab PO SCH (20:38)
[2018-01-19] MEDS: Aspirin 81 MG Tab.EC PO SCH (20:38)
[2018-01-20] MEDS: Acetaminophen 500 MG Tab PO SCH ×3 (06:26→22:46)
[2018-01-20] MEDS: Furosemide 20 MG Tab PO SCH ×2 (06:26→15:26)
[2018-01-20] MEDS: Omeprazole 20 MG Cap.CR PO SCH ×2 (06:27→17:33)
[2018-01-20] MEDS: Iron Polysaccharides Complex 150 MG Cap PO SCH (08:02)
[2018-01-20] MEDS: Polyethylene Glycol 3350 Powder 17 GM Packet PO PRN (08:02)
[2018-01-20] MEDS: buPROPion 150 MG Tab.ER PO SCH (08:02)
[2018-01-20] MEDS: Docusate Sodium 100 MG Cap PO SCH (08:02)
[2018-01-20] MEDS: Zinc (Zinc Gluconate) 50 MG Tab PO SCH (08:03)
[2018-01-20] MEDS: Allopurinol 100 MG Tab PO SCH (08:03)
[2018-01-20] MEDS: Naloxegol Oxalate 25 MG Tab PO SCH (08:03)
[2018-01-20] MEDS: Multivitamins with Minerals/Iron/Folic Acid/Lycopene Tab PO SCH (08:03)
[2018-01-20] MEDS: Insulin Detemir 100 Units/ML 3 ML Pen SUBCUT SCH (08:04)
[2018-01-20] MEDS: Metoprolol Tartrate 50 MG Tab PO SCH ×2 (08:06→20:51)
[2018-01-20] MEDS: Losartan 50 MG Tab PO SCH (08:06)
[2018-01-20] MEDS: oxyCODONE ER 10 MG TAB.ER PO SCH ×2 (08:06→20:51)
[2018-01-20] MEDS: Diclofenac Sodium 1% Gel 100 GM Tube TOP SCH ×4 (08:08→20:49)
[2018-01-20] MEDS: Bisacodyl 10 MG Supp RECTAL PRN (19:28)
[2018-01-20] MEDS: Aspirin 81 MG Tab.EC PO SCH (20:51)
[2018-01-20] MEDS: Simvastatin 20 MG Tab PO SCH (20:51)
[2018-01-20] MEDS: Sertraline 50 MG Tab PO SCH (20:51)
[2018-01-21] MEDS: Furosemide 20 MG Tab PO SCH (06:26)
[2018-01-21] MEDS: Acetaminophen 500 MG Tab PO SCH ×3 (06:26→23:53)
[2018-01-21] MEDS: Omeprazole 20 MG Cap.CR PO SCH ×2 (06:26→18:08)
[2018-01-21] MEDS: oxyCODONE ER 10 MG TAB.ER PO SCH ×2 (08:25→20:20)
[2018-01-21] MEDS: Insulin Detemir 100 Units/ML 3 ML Pen SUBCUT SCH (08:26)
[2018-01-21] MEDS: Naloxegol Oxalate 25 MG Tab PO SCH (08:27)
[2018-01-21] MEDS: buPROPion 150 MG Tab.ER PO SCH (08:27)
[2018-01-21] MEDS: Metoprolol Tartrate 50 MG Tab PO SCH ×2 (08:27→20:20)
[2018-01-21] MEDS: Docusate Sodium 100 MG Cap PO SCH (08:27)
[2018-01-21] MEDS: Zinc (Zinc Gluconate) 50 MG Tab PO SCH (08:28)
[2018-01-21] MEDS: Losartan 50 MG Tab PO SCH (08:28)
[2018-01-21] MEDS: Multivitamins with Minerals/Iron/Folic Acid/Lycopene Tab PO SCH (08:28)
[2018-01-21] MEDS: Iron Polysaccharides Complex 150 MG Cap PO SCH (08:29)
[2018-01-21] MEDS: Allopurinol 100 MG Tab PO SCH (08:29)
[2018-01-21] MEDS: Diclofenac Sodium 1% Gel 100 GM Tube TOP SCH ×4 (08:29→20:19)
[2018-01-21] MEDS: Aspirin 81 MG Tab.EC PO SCH (20:21)
[2018-01-21] MEDS: Simvastatin 20 MG Tab PO SCH (20:21)
[2018-01-21] MEDS: Sertraline 50 MG Tab PO SCH (20:21)
[2018-01-22] MEDS: Acetaminophen 500 MG Tab PO SCH ×4 (05:42→23:13)
[2018-01-22] MEDS: Omeprazole 20 MG Cap.CR PO SCH ×2 (05:42→18:08)
[2018-01-22] MEDS: Furosemide 20 MG Tab PO SCH ×3 (05:42→18:08)
[2018-01-22] MEDS: Insulin Detemir 100 Units/ML 3 ML Pen SUBCUT SCH (08:16)
[2018-01-22] MEDS: Metoprolol Tartrate 50 MG Tab PO SCH ×2 (08:17→21:07)
[2018-01-22] MEDS: Allopurinol 100 MG Tab PO SCH (08:17)
[2018-01-22] MEDS: buPROPion 150 MG Tab.ER PO SCH (08:17)
[2018-01-22] MEDS: Docusate Sodium 100 MG Cap PO SCH (08:17)
[2018-01-22] MEDS: Multivitamins with Minerals/Iron/Folic Acid/Lycopene Tab PO SCH (08:17)
[2018-01-22] MEDS: Naloxegol Oxalate 25 MG Tab PO SCH (08:18)
[2018-01-22] MEDS: Zinc (Zinc Gluconate) 50 MG Tab PO SCH (08:18)
[2018-01-22] MEDS: Losartan 50 MG Tab PO SCH (08:18)
[2018-01-22] MEDS: Iron Polysaccharides Complex 150 MG Cap PO SCH (08:18)
[2018-01-22] MEDS: Diclofenac Sodium 1% Gel 100 GM Tube TOP SCH ×4 (08:19→21:06)
[2018-01-22] MEDS: oxyCODONE ER 10 MG TAB.ER PO SCH ×2 (08:25→21:02)
[2018-01-22] MEDS: oxyCODONE 5 MG Tab PO PRN (13:16)
[2018-01-22] MEDS: Aspirin 81 MG Tab.EC PO SCH (21:02)
[2018-01-22] MEDS: Simvastatin 20 MG Tab PO SCH (21:05)
[2018-01-22] MEDS: Sertraline 50 MG Tab PO SCH (21:05)
[2018-01-23] MEDS: Acetaminophen 500 MG Tab PO SCH ×3 (06:03→23:40)
[2018-01-23] MEDS: Furosemide 20 MG Tab PO SCH ×2 (06:03→16:07)
[2018-01-23] MEDS: Omeprazole 20 MG Cap.CR PO SCH ×2 (06:03→17:55)
[2018-01-23] MEDS: Iron Polysaccharides Complex 150 MG Cap PO SCH (08:20)
[2018-01-23] MEDS: buPROPion 150 MG Tab.ER PO SCH (08:20)
[2018-01-23] MEDS: Naloxegol Oxalate 25 MG Tab PO SCH (08:20)
[2018-01-23] MEDS: Zinc (Zinc Gluconate) 50 MG Tab PO SCH (08:20)
[2018-01-23] MEDS: Docusate Sodium 100 MG Cap PO SCH (08:20)
[2018-01-23] MEDS: Multivitamins with Minerals/Iron/Folic Acid/Lycopene Tab PO SCH (08:21)
[2018-01-23] MEDS: oxyCODONE ER 10 MG TAB.ER PO SCH ×2 (08:21→20:34)
[2018-01-23] MEDS: Allopurinol 100 MG Tab PO SCH (08:21)
[2018-01-23] MEDS: Polyethylene Glycol 3350 Powder 17 GM Packet PO PRN (08:22)
[2018-01-23] MEDS: Losartan 50 MG Tab PO SCH (08:27)
[2018-01-23] MEDS: Metoprolol Tartrate 50 MG Tab PO SCH ×2 (08:27→20:30)
[2018-01-23] MEDS: Insulin Detemir 100 Units/ML 3 ML Pen SUBCUT SCH (08:27)
[2018-01-23] MEDS: Diclofenac Sodium 1% Gel 100 GM Tube TOP SCH ×4 (08:28→22:16)
[2018-01-23] MEDS ORDERED: LORazepam 0.5 MG Tab PO PRN (12:45)
[2018-01-23] MEDS: Simvastatin 20 MG Tab PO SCH (20:29)
[2018-01-23] MEDS: Aspirin 81 MG Tab.EC PO SCH (20:29)
[2018-01-23] MEDS: Sertraline 50 MG Tab PO SCH (20:29)
[2018-01-24] MEDS: Omeprazole 20 MG Cap.CR PO SCH ×2 (05:56→17:28)
[2018-01-24] MEDS: Furosemide 20 MG Tab PO SCH ×2 (05:57→06:24)
[2018-01-24] MEDS: Acetaminophen 500 MG Tab PO SCH ×4 (05:57→22:12)
[2018-01-24] MEDS: Iron Polysaccharides Complex 150 MG Cap PO SCH (08:20)
[2018-01-24] MEDS: Multivitamins with Minerals/Iron/Folic Acid/Lycopene Tab PO SCH (08:20)
[2018-01-24] MEDS: Metoprolol Tartrate 50 MG Tab PO SCH ×2 (08:20→20:16)
[2018-01-24] MEDS: Allopurinol 100 MG Tab PO SCH (08:21)
[2018-01-24] MEDS: buPROPion 150 MG Tab.ER PO SCH (08:21)
[2018-01-24] MEDS: oxyCODONE ER 10 MG TAB.ER PO SCH ×2 (08:21→20:16)
[2018-01-24] MEDS: Losartan 50 MG Tab PO SCH (08:21)
[2018-01-24] MEDS: Naloxegol Oxalate 25 MG Tab PO SCH (08:22)
[2018-01-24] MEDS: Zinc (Zinc Gluconate) 50 MG Tab PO SCH (08:22)
[2018-01-24] MEDS: Docusate Sodium 100 MG Cap PO SCH (08:22)
[2018-01-24] MEDS: Insulin Detemir 100 Units/ML 3 ML Pen SUBCUT SCH (08:22)
[2018-01-24] MEDS: Polyethylene Glycol 3350 Powder 17 GM Packet PO PRN (08:22)
[2018-01-24] MEDS: Diclofenac Sodium 1% Gel 100 GM Tube TOP SCH ×4 (08:31→20:18)
[2018-01-24] MEDS: Simvastatin 20 MG Tab PO SCH (20:16)
[2018-01-24] MEDS: Aspirin 81 MG Tab.EC PO SCH (20:16)
[2018-01-24] MEDS: Sertraline 50 MG Tab PO SCH (20:16)
[2018-01-25] MEDS: Omeprazole 20 MG Cap.CR PO SCH ×2 (06:08→17:51)
[2018-01-25] MEDS: Furosemide 20 MG Tab PO SCH ×2 (06:08→15:32)
[2018-01-25] MEDS: Acetaminophen 500 MG Tab PO SCH ×3 (06:08→23:48)
[2018-01-25] MEDS: Insulin Detemir 100 Units/ML 3 ML Pen SUBCUT SCH (09:03)
[2018-01-25] MEDS: Zinc (Zinc Gluconate) 50 MG Tab PO SCH (09:04)
[2018-01-25] MEDS: Naloxegol Oxalate 25 MG Tab PO SCH (09:04)
[2018-01-25] MEDS: buPROPion 150 MG Tab.ER PO SCH (09:04)
[2018-01-25] MEDS: Diclofenac Sodium 1% Gel 100 GM Tube TOP SCH ×4 (09:04→20:00)
[2018-01-25] MEDS: Iron Polysaccharides Complex 150 MG Cap PO SCH (09:05)
[2018-01-25] MEDS: Losartan 50 MG Tab PO SCH (09:05)
[2018-01-25] MEDS: Docusate Sodium 100 MG Cap PO SCH (09:05)
[2018-01-25] MEDS: Multivitamins with Minerals/Iron/Folic Acid/Lycopene Tab PO SCH (09:05)
[2018-01-25] MEDS: Metoprolol Tartrate 50 MG Tab PO SCH ×2 (09:06→20:00)
[2018-01-25] MEDS: Allopurinol 100 MG Tab PO SCH (09:07)
[2018-01-25] MEDS: oxyCODONE ER 10 MG TAB.ER PO SCH ×2 (09:10→20:01)
[2018-01-25] MEDS: Aspirin 81 MG Tab.EC PO SCH (20:00)
[2018-01-25] MEDS: Sertraline 50 MG Tab PO SCH (20:01)
[2018-01-25] MEDS: Simvastatin 20 MG Tab PO SCH (20:01)
[2018-01-26] MEDS: Omeprazole 20 MG Cap.CR PO SCH ×2 (05:44→17:01)
[2018-01-26] MEDS: Acetaminophen 500 MG Tab PO SCH ×3 (06:29→22:54)
[2018-01-26] MEDS: Furosemide 20 MG Tab PO SCH (06:29)
[2018-01-26] MEDS: oxyCODONE ER 10 MG TAB.ER PO SCH ×2 (08:06→20:47)
[2018-01-26] MEDS: Insulin Detemir 100 Units/ML 3 ML Pen SUBCUT SCH (08:07)
[2018-01-26] MEDS: Docusate Sodium 100 MG Cap PO SCH (08:08)
[2018-01-26] MEDS: Multivitamins with Minerals/Iron/Folic Acid/Lycopene Tab PO SCH (08:08)
[2018-01-26] MEDS: Naloxegol Oxalate 25 MG Tab PO SCH (08:09)
[2018-01-26] MEDS: Losartan 50 MG Tab PO SCH (08:09)
[2018-01-26] MEDS: Metoprolol Tartrate 50 MG Tab PO SCH ×2 (08:09→20:51)
[2018-01-26] MEDS: Iron Polysaccharides Complex 150 MG Cap PO SCH (08:09)
[2018-01-26] MEDS: Allopurinol 100 MG Tab PO SCH (08:10)
[2018-01-26] MEDS: Zinc (Zinc Gluconate) 50 MG Tab PO SCH (08:10)
[2018-01-26] MEDS: buPROPion 150 MG Tab.ER PO SCH (08:10)
[2018-01-26] MEDS: Diclofenac Sodium 1% Gel 100 GM Tube TOP SCH (08:10)
[2018-01-26] MEDS: Ondansetron 4 MG Tab.DIS PO PRN (17:53)
[2018-01-26] MEDS: oxyCODONE 5 MG Tab PO PRN (17:58)
[2018-01-26] MEDS: Aspirin 81 MG Tab.EC PO SCH (20:47)
[2018-01-26] MEDS: Simvastatin 20 MG Tab PO SCH (20:47)
[2018-01-26] MEDS: Sertraline 50 MG Tab PO SCH (20:47)
[2018-01-27] MEDS: Furosemide 20 MG Tab PO SCH ×3 (05:44→14:55)
[2018-01-27] MEDS: Omeprazole 20 MG Cap.CR PO SCH ×2 (05:44→16:47)
[2018-01-27] MEDS: Acetaminophen 500 MG Tab PO SCH ×4 (05:44→22:17)
[2018-01-27] MEDS: oxyCODONE ER 10 MG TAB.ER PO SCH ×2 (08:16→21:12)
[2018-01-27] MEDS: Naloxegol Oxalate 25 MG Tab PO SCH (08:17)
[2018-01-27] MEDS: Iron Polysaccharides Complex 150 MG Cap PO SCH (08:17)
[2018-01-27] MEDS: Zinc (Zinc Gluconate) 50 MG Tab PO SCH (08:17)
[2018-01-27] MEDS: Multivitamins with Minerals/Iron/Folic Acid/Lycopene Tab PO SCH (08:17)
[2018-01-27] MEDS: buPROPion 150 MG Tab.ER PO SCH (08:17)
[2018-01-27] MEDS: Losartan 50 MG Tab PO SCH (08:17)
[2018-01-27] MEDS: Docusate Sodium 100 MG Cap PO SCH (08:17)
[2018-01-27] MEDS: Metoprolol Tartrate 50 MG Tab PO SCH ×2 (08:18→21:13)
[2018-01-27] MEDS: Insulin Detemir 100 Units/ML 3 ML Pen SUBCUT SCH (08:20)
[2018-01-27] MEDS: Allopurinol 100 MG Tab PO SCH (08:20)
[2018-01-27] MEDS: Aspirin 81 MG Tab.EC PO SCH (21:12)
[2018-01-27] MEDS: Sertraline 50 MG Tab PO SCH (21:12)
[2018-01-27] MEDS: Simvastatin 20 MG Tab PO SCH (21:12)
[2018-01-28] MEDS: Omeprazole 20 MG Cap.CR PO SCH ×2 (06:01→17:16)
[2018-01-28] MEDS: Furosemide 20 MG Tab PO SCH (06:01)
[2018-01-28] MEDS: Acetaminophen 500 MG Tab PO SCH ×3 (06:01→22:31)
[2018-01-28] MEDS: Insulin Detemir 100 Units/ML 3 ML Pen SUBCUT SCH (09:00)
[2018-01-28] MEDS: Zinc (Zinc Gluconate) 50 MG Tab PO SCH (09:01)
[2018-01-28] MEDS: Multivitamins with Minerals/Iron/Folic Acid/Lycopene Tab PO SCH (09:01)
[2018-01-28] MEDS: oxyCODONE ER 10 MG TAB.ER PO SCH ×2 (09:01→22:32)
[2018-01-28] MEDS: buPROPion 150 MG Tab.ER PO SCH (09:01)
[2018-01-28] MEDS: Allopurinol 100 MG Tab PO SCH (09:01)
[2018-01-28] MEDS: Docusate Sodium 100 MG Cap PO SCH (09:01)
[2018-01-28] MEDS: Naloxegol Oxalate 25 MG Tab PO SCH (09:02)
[2018-01-28] MEDS: Metoprolol Tartrate 50 MG Tab PO SCH ×2 (09:02→22:31)
[2018-01-28] MEDS: Losartan 50 MG Tab PO SCH (09:02)
[2018-01-28] MEDS: Iron Polysaccharides Complex 150 MG Cap PO SCH (09:02)
[2018-01-28] MEDS: Aspirin 81 MG Tab.EC PO SCH (22:30)
[2018-01-28] MEDS: Sertraline 50 MG Tab PO SCH (22:31)
[2018-01-28] MEDS: Simvastatin 20 MG Tab PO SCH (22:31)
[2018-01-28] MEDS: Diclofenac Sodium 1% Gel 100 GM Tube TOP PRN (22:32)
[2018-01-29] MEDS: Furosemide 20 MG Tab PO SCH ×2 (06:58→15:35)
[2018-01-29] MEDS: Acetaminophen 500 MG Tab PO SCH ×3 (06:58→23:32)
[2018-01-29] MEDS: Omeprazole 20 MG Cap.CR PO SCH ×2 (06:58→17:02)
[2018-01-29] MEDS: Insulin Detemir 100 Units/ML 3 ML Pen SUBCUT SCH (08:57)
[2018-01-29] MEDS: Losartan 50 MG Tab PO SCH (08:59)
[2018-01-29] MEDS: Naloxegol Oxalate 25 MG Tab PO SCH (08:59)
[2018-01-29] MEDS: Iron Polysaccharides Complex 150 MG Cap PO SCH (08:59)
[2018-01-29] MEDS: Zinc (Zinc Gluconate) 50 MG Tab PO SCH (08:59)
[2018-01-29] MEDS: Metoprolol Tartrate 50 MG Tab PO SCH ×2 (09:00→21:01)
[2018-01-29] MEDS: Docusate Sodium 100 MG Cap PO SCH (09:00)
[2018-01-29] MEDS: buPROPion 150 MG Tab.ER PO SCH (09:00)
[2018-01-29] MEDS: Allopurinol 100 MG Tab PO SCH (09:00)
[2018-01-29] MEDS: Polyethylene Glycol 3350 Powder 17 GM Packet PO PRN (09:02)
[2018-01-29] MEDS: Multivitamins with Minerals/Iron/Folic Acid/Lycopene Tab PO SCH (09:10)
[2018-01-29] MEDS: oxyCODONE ER 10 MG TAB.ER PO SCH ×2 (09:10→21:02)
[2018-01-29] MEDS: amLODIPine 5 MG Tab PO SCH (18:59)
[2018-01-29] MEDS: Aspirin 81 MG Tab.EC PO SCH (21:01)
[2018-01-29] MEDS: Sertraline 50 MG Tab PO SCH (21:04)
[2018-01-29] MEDS: Simvastatin 20 MG Tab PO SCH (21:04)
[2018-01-30] MEDS: Acetaminophen 500 MG Tab PO SCH ×3 (06:43→23:30)
[2018-01-30] MEDS: Furosemide 20 MG Tab PO SCH ×2 (06:43→14:11)
[2018-01-30] MEDS: Omeprazole 20 MG Cap.CR PO SCH ×2 (06:43→16:45)
[2018-01-30] MEDS: Insulin Detemir 100 Units/ML 3 ML Pen SUBCUT SCH (08:31)
[2018-01-30] MEDS: oxyCODONE ER 10 MG TAB.ER PO SCH ×2 (08:34→21:14)
[2018-01-30] MEDS: buPROPion 150 MG Tab.ER PO SCH (08:34)
[2018-01-30] MEDS: amLODIPine 5 MG Tab PO SCH (08:34)
[2018-01-30] MEDS: Naloxegol Oxalate 25 MG Tab PO SCH (08:34)
[2018-01-30] MEDS: Metoprolol Tartrate 50 MG Tab PO SCH ×2 (08:35→21:29)
[2018-01-30] MEDS: Multivitamins with Minerals/Iron/Folic Acid/Lycopene Tab PO SCH (08:35)
[2018-01-30] MEDS: Iron Polysaccharides Complex 150 MG Cap PO SCH (08:35)
[2018-01-30] MEDS: Docusate Sodium 100 MG Cap PO SCH (08:35)
[2018-01-30] MEDS: Zinc (Zinc Gluconate) 50 MG Tab PO SCH (08:36)
[2018-01-30] MEDS: Losartan 50 MG Tab PO SCH (08:36)
[2018-01-30] MEDS: Allopurinol 100 MG Tab PO SCH (08:36)
--- NOTE | 2018-01-30 12:56 | PCM.PN ---
- General Info Date of Service: 01/30/18 Subjective Update: Notified by nurse that patient was found on the floor of her room by POWER PLANT OPERATOR APPRENTICE today ( 01/30/18). This was an unwitnessed fall. The patient states she was walking and bent over to apple picking supervisor something off the floor and down she went. She states she landed on her left side. She initially complained of left-sided head, shoulder, and hip pain. She is denying pain currently. Niece is concerned about increasing confusion the last week or so. Functional Status: Reports: Pain Controlled, Tolerating Diet, Ambulating, Urinating - Review of Systems General: Denies: Fever, Fatigue, Chills HEENT: Reports: Glasses. Denies: Headaches Pulmonary: Denies: Shortness of Breath Cardiovascular: Denies: Chest Pain, Lightheadedness Gastrointestinal: Denies: Abdominal Pain, Decreased Appetite, Nausea Neurological: Reports: Dizziness. Denies: Headache Psychiatric: Reports: Confusion. Denies: Depression, Anxiety - Patient Data Vitals - Most Recent: Last Vital Signs Temp 98.1 F 01/30/18 07:00 Pulse 58 L 01/30/18 08:35 Resp 20 01/30/18 07:00 BP 136/66 01/30/18 08:36 Pulse Ox 94 L 01/30/18 07:00 Weight - Most Recent: 195 lb 9 oz I&O - Last 24 Hours: Intake & Output 01/29/18 01/30/18 01/30/18 22:59 06:59 14:59 Intake Total 810 50 Balance 810 50 Lab Results Last 24 Hours: Laboratory Results - last 24 hr 01/30/18 Range/Units 07:37 POC Glucose 171 H (74-106) mg/dl Med Orders - Current: Current Medications Acetaminophen (Tylenol Extra Strength) 1,000 mg PO Q8H [facility] Last Admin: 01/30/18 06:43 Dose: 1,000 mg Al Hydroxide/Mg Hydroxide (Mag-Al Susp) 30 ml PO Q6H PRN PRN Reason: Heartburn Last Admin: 01/18/18 12:18 Dose: 30 ml Allopurinol (Zyloprim) 100 mg PO DAILY [facility] Last Admin: 01/30/18 08:36 Dose: 100 mg Amlodipine Besylate (Norvasc) 5 mg PO DAILY [facility] Last Admin: 01/30/18 08:34 Dose: 5 mg Aspirin (Halfprin) 81 mg PO BEDTIME [facility] Last Admin: 01/29/18 21:01 Dose: 81 mg Bisacodyl (Dulcolax) 10 mg RECTAL DAILY PRN PRN Reason: Constipation Last Admin: 01/08/18 11:45 Dose: 10 mg Bupropion HCl (Wellbutrin Xl) 150 mg PO DAILY [facility] Last Admin: 01/30/18 08:34 Dose: 150 mg Diclofenac Sodium (Voltaren 1% Gel) 1 gm TOP QID PRN PRN Reason: Pain Last Admin: 01/28/18 22:32 Dose: 1 mg Docusate Sodium (Colace) 100 mg PO DAILY [facility] Last Admin: 01/30/18 08:35 Dose: 100 mg Furosemide (Lasix) 20 mg PO SuTuThSa@1500 [facility] Last Admin: 01/29/18 15:35 Dose: 20 mg Furosemide (Lasix) 20 mg PO DAILY@0700 [facility] Last Admin: 01/30/18 06:43 Dose: 20 mg Insulin Detemir (Levemir) 40 unit SUBCUT DAILY [facility] Last Admin: 01/30/18 08:31 Dose: 40 units Losartan Potassium (Cozaar) 100 mg PO DAILY [facility] Last Admin: 01/30/18 08:36 Dose: 100 mg Metoprolol Tartrate (Lopressor) 50 mg PO BID [facility] Last Admin: 01/30/18 08:35 Dose: 50 mg Multivitamins/Minerals (Centrum) 1 tab PO DAILY [facility] Last Admin: 01/30/18 08:35 Dose: 1 tab Naloxegol (Movantik) 25 mg PO DAILY [facility] Last Admin: 01/30/18 08:34 Dose: 25 mg Omeprazole (Omeprazole) 20 mg PO BID@0600,1700 [facility] Last Admin: 01/30/18 06:43 Dose: 20 mg Ondansetron HCl (Zofran Odt) 8 mg PO TID PRN PRN Reason: nausea or vomitting Last Admin: 01/26/18 17:53 Dose: 8 mg Oxycodone HCl (Oxycodone) 5 mg PO Q6H PRN PRN Reason: Pain Last Admin: 01/26/18 17:58 Dose: 5 mg Oxycodone HCl (Oxycontin) 10 mg PO Q12H [facility] Last Admin: 01/30/18 08:34 Dose: 10 mg Polyethylene Glycol (Miralax) 17 gm PO DAILY PRN PRN Reason: Constipation Last Admin: 01/29/18 09:02 Dose: 17 gm Polysaccharide Iron Complex (Ferrex 150) 150 mg PO DAILY [facility] Last Admin: 01/30/18 08:35 Dose: 150 mg Prochlorperazine Maleate (Compazine) 10 mg PO QID PRN PRN Reason: Nausea Last Admin: 01/16/18 20:25 Dose: 10 mg Promethazine HCl (Phenergan) 25 mg IM Q6H PRN PRN Reason: Nausea Last Admin: 01/02/18 18:21 Dose: 25 mg Ramelteon (Rozerem) 8 mg PO BEDTIME [facility] Last Admin: 01/29/18 21:05 Dose: 8 mg Senna/Docusate Sodium (Senna Plus) 1 tab PO BEDTIME [facility] Last Admin: 01/29/18 21:02 Dose: 1 tab Sertraline HCl (Zoloft) 150 mg PO BEDTIME [facility] Last Admin: 01/29/18 21:04 Dose: 150 mg Simethicone (Simethicone) 80 mg PO Q6H PRN PRN Reason: Heartburn Last Admin: 01/18/18 06:13 Dose: 80 mg Simvastatin (Zocor) 40 mg PO BEDTIME [facility] Last Admin: 01/29/18 21:04 Dose: 40 mg Zinc Gluconate (Zinc) 50 mg PO DAILY [facility] Last Admin: 01/30/18 08:36 Dose: 50 mg Discontinued Medications Acetaminophen (Tylenol Extra Strength) 1,000 mg PO Q8H [facility] Last Admin: 10/23/17 02:00 Dose: 1,000 mg Acetaminophen (Tylenol Extra Strength) 1,000 mg PO Q8H [facility] Last Admin: 11/22/17 15:12 Dose: 1,000 mg Acetaminophen (Tylenol) Confirm Administered Dose 975 mg .ROUTE .STK-MED ONE Stop: 11/08/17 07:36 Last Admin: 11/08/17 08:28 Dose: 975 mg Hydrocodone Bitart/Acetaminophen ([place] 325-5 Mg) 1 - 2 tab PO Q4H PRN PRN Reason: Moderate Pain Last Admin: 10/24/17 19:26 Dose: 1 tab Al Hydroxide/Mg Hydroxide (Mag-Al Susp) Confirm Administered Dose 30 ml .ROUTE .STK-MED ONE Stop: 01/09/18 21:49 Last Admin: 01/09/18 22:00 Dose: 30 ml Al Hydroxide/Mg Hydroxide (Mag-Al Susp) 30 ml PO Q6H PRN PRN Reason: Heartburn Last Admin: 01/09/18 22:00 Dose: 30 ml Bacitracin (Bacitracin Oint) 1 gm TOP DAILY PRN PRN Reason: Rash Bisacodyl (Dulcolax) 10 mg RECTAL ONETIME ONE Stop: 12/21/17 04:02 Last Admin: 12/21/17 04:17 Dose: Not Given Bisacodyl (Dulcolax) Confirm Administered Dose 10 mg .ROUTE .[facility] ONE Stop: 01/08/18 11:37 Last Admin: 01/08/18 16:15 Dose: Not Given Calcium Carbonate/Glycine (Tums) 500 mg PO TID PRN PRN Reason: Indigestion Ciprofloxacin (Ciprofloxacin Hcl) 500 mg PO BID [facility] Stop: 12/24/17 21:01 Last Admin: 12/24/17 21:04 Dose: 500 mg Al Hydroxide/Mg Hydroxide 40 ml/ Diphenhydramine HCl 12.5 mg/ Lidocaine HCl 40 ml 0 ml PO TID PRN PRN Reason: mouth sores/burning Last Admin: 10/28/17 08:11 Dose: 10 ml Cranberry (Azo Cranberry) 1 each PO BEDTIME [facility] Last Admin: 11/07/17 21:46 Dose: Not Given Diclofenac Sodium (Voltaren 1% Gel) 1 gm TOP QID [facility] Last Admin: 01/26/18 08:10 Dose: Not Given Furosemide (Lasix) 20 mg PO DAILY [facility] Last Admin: 12/13/17 09:25 Dose: 20 mg Furosemide (Lasix) 20 mg PO SUTUTHSA@1700 [facility] Last Admin: 12/12/17 16:01 Dose: 20 mg Heparin Sodium (Porcine) (Heparin Lock Flush 100 Units/Ml) 500 units FLUSH ASDIRECTED PRN PRN Reason: Other Cefepime HCl 1 gm/ Sodium (Chloride) 50 mls @ 100 mls/hr IV Q8H [facility] Last Admin: 11/01/17 18:52 Dose: Not Given Cefepime HCl 1 gm/ Sodium (Chloride) 50 mls @ 100 mls/hr IV Q24H [facility] Last Admin: 11/07/17 20:32 Dose: 100 mls/hr Sodium Chloride (Normal Saline) Confirm Administered Dose 50 mls @ as directed .ROUTE .[facility] ONE Stop: 11/02/17 22:10 Last Admin: 11/02/17 23:15 Dose: 100 mls/hr Sodium Chloride (Normal Saline) Confirm Administered Dose 50 mls @ as directed .ROUTE .[facility] ONE Stop: 11/03/17 21:46 Last Admin: 11/03/17 21:56 Dose: Not Given Sodium Chloride (Normal Saline) 50 mls @ 50 mls/hr IV ASDIRECTED [facility] Albumin Human (Flexbumin 25%) 100 mls @ 50 mls/hr IV ONETIME ONE Stop: 11/22/17 13:59 Last Admin: 11/22/17 13:07 Dose: 50 mls/hr Sodium Chloride (Normal Saline) 250 mls @ 125 mls/hr IV ASDIRECTED [facility] Stop: 11/22/17 21:00 Last Admin: 11/22/17 15:40 Dose: 125 mls/hr Ciprofloxacin/Dextrose (Cipro In D5w 400 Mg/200 Ml) 200 mls @ 200 mls/hr IV Q12H [facility] Last Admin: 11/26/17 06:13 Dose: 200 mls/hr Sodium Chloride (Normal Saline) Confirm Administered Dose 100 mls @ as directed .ROUTE .[facility] ONE Stop: 11/22/17 20:04 Last Admin: 11/22/17 20:05 Dose: 100 mls/hr Sodium Chloride (Normal Saline) 100 mls @ 200 mls/hr IV ASDIRECTED [facility] Sodium Chloride (Normal Saline) 100 mls @ 20 mls/hr IV DAILY@1900 [facility] Last Admin: 11/25/17 18:08 Dose: 20 mls/hr Insulin Aspart (Novolog) 0 unit SUBCUT WITHMEALSANDBED [facility]; Protocol Stop: 10/31/17 00:00 Last Admin: 10/30/17 21:02 Dose: 5 units Insulin Aspart (Novolog) 2 unit SUBCUT ONETIME ONE Stop: 10/31/17 20:59 Last Admin: 10/31/17 21:07 Dose: 2 units Insulin Aspart (Novolog) 10 unit SUBCUT ONETIME ONE Stop: 11/12/17 17:44 Last Admin: 11/12/17 18:06 Dose: 10 units Insulin Aspart (Novolog) 0 unit SUBCUT TIDMEALS [facility]; Protocol Last Admin: 12/21/17 17:16 Dose: Not Given Insulin Detemir (Levemir) 44 unit SUBCUT DAILY [facility] Last Admin: 10/30/17 10:10 Dose: Not Given Insulin Detemir (Levemir) 40 unit SUBCUT DAILY [facility] Last Admin: 11/14/17 08:22 Dose: 40 units Insulin Detemir (Levemir) 44 unit SUBCUT DAILY [facility] Last Admin: 11/29/17 11:32 Dose: Not Given Insulin Detemir (Levemir) 34 unit SUBCUT DAILY [facility] Last Admin: 12/02/17 10:11 Dose: Not Given Insulin Detemir (Levemir) 30 unit SUBCUT DAILY [facility] Last Admin: 12/20/17 08:02 Dose: 30 units Insulin Detemir (Levemir) 10 unit SUBCUT ONETIME ONE Stop: 12/20/17 13:01 Last Admin: 12/20/17 14:38 Dose: 10 units Lidocaine/Epinephrine (Xylocaine 1% With Epinephrine 1:100,000) 3 ml INJECT ONETIME ONE Stop: 11/05/17 09:01 Last Admin: 11/05/17 09:00 Dose: 3 ml Loperamide HCl (Imodium) 2 mg PO ASDIRECTED PRN PRN Reason: Diarrhea Last Admin: 11/30/17 05:53 Dose: 2 mg Lorazepam (Ativan) 0.25 mg PO Q8H PRN PRN Reason: Anxiety Last Admin: 12/13/17 18:03 Dose: 0.25 mg Lorazepam (Ativan) 0.25 mg PO Q8H PRN PRN Reason: Anxiety Losartan Potassium (Cozaar) 25 mg PO DAILY [facility] Last Admin: 11/27/17 09:05 Dose: 25 mg Losartan Potassium (Cozaar) 50 mg PO DAILY [facility] Last Admin: 12/25/17 08:57 Dose: 50 mg Losartan Potassium (Cozaar) 75 mg PO DAILY [facility] Last Admin: 01/17/18 08:26 Dose: 75 mg Magnesium Hydroxide (Milk Of Magnesia) 30 ml PO DAILY PRN PRN Reason: Constipation Last Admin: 10/26/17 09:10 Dose: 30 ml Multivitamins/Minerals (Centrum) 1 tab PO DAILY [facility] Last Admin: 12/20/17 08:03 Dose: 1 tab Multivitamins/Minerals (Centrum) 1 tab PO DAILY@1200 [facility] Last Admin: 12/27/17 11:36 Dose: 1 tab Mupirocin (Bactroban Crm) 1 gm TOP TID [facility] Last Admin: 10/29/17 11:29 Dose: Not Given Mupirocin (Bactroban Oint) 0 gm TOP DAILY [facility] Last Admin: 12/06/17 10:12 Dose: 1 applic Insulin Degludec ( (Tresiba) 44units) 44 units SUBCUT DAILY [facility] Nystatin (Nystop) 0 gm TOP BID [facility] Last Admin: 10/25/17 08:58 Dose: 1 applic Nystatin (Nystop) 0 gm TOP TID [facility] Last Admin: 10/26/17 11:15 Dose: Not Given Nystatin (Nystatin Ointment) 0 gm TOP TID [facility] Last Admin: 11/04/17 15:49 Dose: Not Given Nystatin (Nystatin Ointment) 1 gm TOP DAILY PRN PRN Reason: Rash Last Admin: 12/26/17 08:19 Dose: 1 applic Nystatin (Nystatin Ointment) 1 gm TOP BID [facility] Last Admin: 01/01/18 09:12 Dose: Not Given Nystatin (Nystatin Ointment) 1 gm TOP BID PRN PRN Reason: Rash Nystatin (Nystatin Ointment) 0 gm TOP BID PRN PRN Reason: Rash Olanzapine (Zyprexa) 10 mg PO ASDIRECTED [facility] Olanzapine (Zyprexa) 10 mg PO BEDTIME [facility] Stop: 11/14/17 21:01 Last Admin: 11/14/17 21:28 Dose: 10 mg Olanzapine (Zyprexa) 10 mg PO BEDTIME [facility] Stop: 11/22/17 21:01 Last Admin: 11/22/17 21:41 Dose: 10 mg Omeprazole (Omeprazole) 20 mg PO SUTUTHSA@2100 [facility] Last Admin: 10/23/17 21:24 Dose: 20 mg Omeprazole (Omeprazole) 20 mg PO DAILY@2100 [facility] Last Admin: 12/11/17 20:18 Dose: 20 mg Omeprazole (Omeprazole) 20 mg PO BID [facility] Last Admin: 12/13/17 09:27 Dose: 20 mg Omeprazole (Omeprazole) 20 mg PO BIDAC [facility] Last Admin: 12/17/17 16:45 Dose: 20 mg Omeprazole (Omeprazole) 20 mg PO DAILY@0600,1700 [facility] Last Admin: 01/20/18 06:27 Dose: 20 mg Oxycodone HCl (Oxycodone) 5 mg PO Q6H [facility] Last Admin: 10/23/17 06:11 Dose: 5 mg Oxycodone HCl (Oxycodone) 5 mg PO Q6H [facility] Last Admin: 10/24/17 06:21 Dose: Not Given Oxycodone HCl (Oxycodone) 5 mg PO BEDTIME [facility] Last Admin: 12/07/17 20:02 Dose: 5 mg Oxycodone HCl (Oxycodone) 5 mg PO ONETIME ONE Stop: 11/23/17 18:12 Last Admin: 11/23/17 18:48 Dose: 5 mg Oxycodone HCl (Oxycodone) 7.5 mg PO BEDTIME [facility] Stop: 12/13/17 23:00 Last Admin: 12/13/17 20:05 Dose: 7.5 mg Oxycodone HCl (Oxycodone) 5 mg PO ONETIME ONE Stop: 12/13/17 17:59 Last Admin: 12/13/17 18:21 Dose: 5 mg Oxycodone HCl (Oxycontin) Confirm Administered Dose 10 mg .ROUTE .STK-MED ONE Stop: 12/31/17 11:25 Last Admin: 12/31/17 11:26 Dose: 10 mg Polysaccharide Iron Complex (Ferrex 150) 150 mg PO DAILY [facility] Last Admin: 12/20/17 08:05 Dose: 150 mg Polysaccharide Iron Complex (Ferrex 150) 150 mg PO DAILY@1200 [facility] Last Admin: 12/27/17 11:36 Dose: 150 mg Prochlorperazine Maleate (Compazine) 10 mg PO QID PRN PRN Reason: Nausea Senna/Docusate Sodium (Senna Plus) 1 tab PO BID PRN PRN Reason: Constipation Last Admin: 10/28/17 08:08 Dose: 1 tab Senna/Docusate Sodium (Senna Plus) 1 tab PO BID [facility] Last Admin: 11/04/17 15:49 Dose: Not Given Senna/Docusate Sodium (Senna Plus) 1 - 2 tab PO DAILY PRN PRN Reason: Constipation Sertraline HCl (Zoloft) 100 mg PO BEDTIME [facility] Last Admin: 01/07/18 20:58 Dose: 100 mg Sodium Chloride ([place] Nasal [place]) 1 ml ALDO QID PRN PRN Reason: Dryness Last Admin: 11/12/17 21:03 Dose: 1 spray Sodium Chloride (Normal Saline) 20 ml FLUSH ASDIRECTED PRN PRN Reason: Other Sodium Chloride (Saline Flush) 20 ml FLUSH Q8H [facility] Last Admin: 11/02/17 10:46 Dose: Not Given Sodium Chloride (Saline Flush) 20 ml FLUSH Q8H [facility] Last Admin: 11/11/17 12:20 Dose: Not Given Zinc Gluconate (Zinc) 50 mg PO DAILY [facility] Last Admin: 12/20/17 08:05 Dose: 50 mg Zinc Gluconate (Zinc) 50 mg PO DAILY@1200 [facility] Last Admin: 12/27/17 11:35 Dose: 50 mg - Exam Quality Assessment: No: Supplemental Oxygen, Urine Catheter General: Alert, Oriented (x3), Cooperative, No Acute Distress HEENT: Other (Pupils pinpoint, not reactive, patient has partial blindness; head atraumatic). No: Mucous Membr. Moist/[place] (Dry, pale) Extremities: Limited Range of Motion (left shoulder, this is not new), Other ( normal ROM of left hip and left knee; tenderness noted to lateral/proximal aspect of left knee). No: Redness Skin: Warm, Dry, Intact Neurological: Normal Speech, Strength Equal Bilateral, Cranial Nerves Intact Psy/Mental Status: Alert, Normal Affect, Normal Mood - Problem List Review Problem List Initiated/Reviewed/Updated: Yes - My Orders Last 24 Hours: My Active Orders 01/29/18 18:30 amLODIPine [Norvasc] 5 mg PO DAILY 01/30/18 09:58 Head wo Cont [CT] Routine Hip Min 1V w Pelvis Lt [CR] Routine Humerus Lt [CR] Routine 01/30/18 12:48 CBC WITH AUTO DIFF [HEME] Routine COMPREHENSIVE METABOLIC PN,CMP [CHEM] Routine CULTURE URINE [RM] Routine UA W/MICROSCOPIC [URIN] Routine - Plan Plan:: HPI: This is a 76 year old female who had previously been in swing bed status due to a left humeral fracture and deconditioning. The patient has been recently diagnosed with peritoneal carcinomatosis. The patient was sent up to [facility] on 10/20/17 for abdominal paracentesis and pleurx catheter placement. She had labs done that day which showed a hemoglobin of 6.5. She was then admitted to their hospitalist services. She was given 2 units of PRBCs. She was due for her second cycle of carboplatin and taxol while there and this was completed on 10/21/17. She was also given Neulasta prior to discharge. The patient was admitted back to swing bed status for rehabilitation of her fracture and deconditioning. PRIMARY ASSESSMENT/PLAN: Unwitnessed fall. Patient found on floor this morning by POWER PLANT OPERATOR APPRENTICE and was laying on her left side. Patient initially complained of left sided head, shoulder, and hip pain. Head CT negative for acute intracranial processes. Xray report of left hip notes no fracture or dislocation. Xray report of left humerus notes no change since 11/12/17. Patient alert & oriented x 3, however does change her fall story with each person asking her. Will continue to monitor. Increased confusion. Staff and family have noted increased confusion the last week or so. WBC 6.05, hgb 12.3. CMP and UA with culture pending. 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 Pressure settings have been changed in the last 10 days in hopes of stimulating faster granulation tissue formation. Continue pressure at 100. Patient will have wound examined by Kye Power NP tomorrow who has been following this closely. Left humeral head fracture. No change in position after fall this morning. Xray report notes unchanged since 11/12/17. Continue with ROM and strengthening. Deconditioning. Continue physical therapy and pain control prior to PT. HTN. BP continues to be elevated at 160-170s systolic with pulse of 50-60. Continue lopressor and losartan. Norvasc 5 mg added. Immunocompromised host. Malignant ascites. PleurX catheter in place, however nursing states they have never been able to drain this. Will have Kye Power NP evaluate this tomorrow and determine need for continuation. Anemia due to antineoplastic chemotherapy. Hgb stable at 12.3. Constipation. Continue movantik and senna. SECONDARY ASSESSMENT/PLAN: Primary peritoneal carcinomatosis. Followed by Dr. Collier/oncology with ongoing Pleurx abdominal drain. History of endometrial cancer, s/p hysterceomty 2009. CAD, no ischemic picture, stable. Aortic stenosis. History of atrial flutter. Type 2 DM. Accuchecks daily. Tresiba switched to levemir daily due to not being available in house. CKD stage 3. Hyperlipidemia. Continue simvastatin. Obesity. Gout. Continue allopurinol 100 mg daily. Diabetic retinopathy. Depression. Continue zoloft. GERD. Continue omeprazole. OAB. Osteoarthritis. History of hypercalcemia. Recent Hypoalbuminemia. DVT prophylaxis. Score of 6, Continue with phan stockings. Overall plan: Will await the results of the lab tests ordered today to see if there is any evidence of infection or electrolyte abnormality that could be causing increased confusion. No maligancy noted on head CT from this morning.
[2018-01-30 13:34] LABS: ANION GAP 16.7 mmol/L (5-15)
[2018-01-30] MEDS: Sertraline 50 MG Tab PO SCH (21:14)
[2018-01-30] MEDS: Simvastatin 20 MG Tab PO SCH (21:15)
[2018-01-30] MEDS: Aspirin 81 MG Tab.EC PO SCH (21:15)
[2018-01-31] MEDS: oxyCODONE 5 MG Tab PO PRN (03:55)
[2018-01-31] MEDS: Furosemide 20 MG Tab PO SCH (07:16)
[2018-01-31] MEDS: Acetaminophen 500 MG Tab PO SCH ×3 (07:18→23:13)
[2018-01-31] MEDS: Omeprazole 20 MG Cap.CR PO SCH ×2 (07:19→17:13)
[2018-01-31] MEDS: Docusate Sodium 100 MG Cap PO SCH (08:33)
[2018-01-31] MEDS: Zinc (Zinc Gluconate) 50 MG Tab PO SCH (08:33)
[2018-01-31] MEDS: oxyCODONE ER 10 MG TAB.ER PO SCH ×2 (08:33→20:23)
[2018-01-31] MEDS: Naloxegol Oxalate 25 MG Tab PO SCH (08:33)
[2018-01-31] MEDS: Multivitamins with Minerals/Iron/Folic Acid/Lycopene Tab PO SCH (08:33)
[2018-01-31] MEDS: buPROPion 150 MG Tab.ER PO SCH (08:33)
[2018-01-31] MEDS: Allopurinol 100 MG Tab PO SCH (08:33)
[2018-01-31] MEDS: Losartan 50 MG Tab PO SCH (08:34)
[2018-01-31] MEDS: Metoprolol Tartrate 50 MG Tab PO SCH ×2 (08:34→20:24)
[2018-01-31] MEDS: Iron Polysaccharides Complex 150 MG Cap PO SCH (08:34)
[2018-01-31] MEDS: Insulin Detemir 100 Units/ML 3 ML Pen SUBCUT SCH (08:39)
[2018-01-31] MEDS: amLODIPine 5 MG Tab PO SCH (08:39)
[2018-01-31] MEDS: Polyethylene Glycol 3350 Powder 17 GM Packet PO PRN (15:14)
[2018-01-31] MEDS: Aspirin 81 MG Tab.EC PO SCH (20:23)
[2018-01-31] MEDS: Sertraline 50 MG Tab PO SCH (20:24)
[2018-01-31] MEDS: Simvastatin 20 MG Tab PO SCH (20:24)
[2018-01-31] MEDS: Diclofenac Sodium 1% Gel 100 GM Tube TOP PRN (20:26)
[2018-02-01] MEDS: Omeprazole 20 MG Cap.CR PO SCH ×2 (05:35→18:17)
[2018-02-01] MEDS: Acetaminophen 500 MG Tab PO SCH ×3 (06:19→23:08)
[2018-02-01] MEDS: Furosemide 20 MG Tab PO SCH ×2 (06:19→14:20)
[2018-02-01] MEDS: Losartan 50 MG Tab PO SCH (08:22)
[2018-02-01] MEDS: Multivitamins with Minerals/Iron/Folic Acid/Lycopene Tab PO SCH (08:23)
[2018-02-01] MEDS: Zinc (Zinc Gluconate) 50 MG Tab PO SCH (08:23)
[2018-02-01] MEDS: Allopurinol 100 MG Tab PO SCH (08:23)
[2018-02-01] MEDS: buPROPion 150 MG Tab.ER PO SCH (08:23)
[2018-02-01] MEDS: Naloxegol Oxalate 25 MG Tab PO SCH (08:23)
[2018-02-01] MEDS: oxyCODONE ER 10 MG TAB.ER PO SCH ×2 (08:23→20:37)
[2018-02-01] MEDS: Iron Polysaccharides Complex 150 MG Cap PO SCH (08:23)
[2018-02-01] MEDS: Insulin Detemir 100 Units/ML 3 ML Pen SUBCUT SCH (08:24)
[2018-02-01] MEDS: Docusate Sodium 100 MG Cap PO SCH (08:24)
[2018-02-01] MEDS: Metoprolol Tartrate 50 MG Tab PO SCH ×2 (08:24→20:37)
[2018-02-01] MEDS: amLODIPine 5 MG Tab PO SCH (08:24)
[2018-02-01] MEDS: Sertraline 50 MG Tab PO SCH (20:37)
[2018-02-01] MEDS: Aspirin 81 MG Tab.EC PO SCH (20:37)
[2018-02-01] MEDS: Simvastatin 20 MG Tab PO SCH (20:37)
[2018-02-02] MEDS: Furosemide 20 MG Tab PO SCH (06:04)
[2018-02-02] MEDS: Omeprazole 20 MG Cap.CR PO SCH ×2 (06:04→17:05)
[2018-02-02] MEDS: Acetaminophen 500 MG Tab PO SCH ×3 (06:04→23:12)
[2018-02-02] MEDS: Losartan 50 MG Tab PO SCH (08:13)
[2018-02-02] MEDS: Metoprolol Tartrate 50 MG Tab PO SCH ×2 (08:13→20:10)
[2018-02-02] MEDS: Multivitamins with Minerals/Iron/Folic Acid/Lycopene Tab PO SCH (08:14)
[2018-02-02] MEDS: amLODIPine 5 MG Tab PO SCH (08:14)
[2018-02-02] MEDS: Zinc (Zinc Gluconate) 50 MG Tab PO SCH (08:14)
[2018-02-02] MEDS: Docusate Sodium 100 MG Cap PO SCH (08:14)
[2018-02-02] MEDS: buPROPion 150 MG Tab.ER PO SCH (08:14)
[2018-02-02] MEDS: Allopurinol 100 MG Tab PO SCH (08:14)
[2018-02-02] MEDS: Iron Polysaccharides Complex 150 MG Cap PO SCH (08:15)
[2018-02-02] MEDS: oxyCODONE ER 10 MG TAB.ER PO SCH ×2 (08:15→20:11)
[2018-02-02] MEDS: Insulin Detemir 100 Units/ML 3 ML Pen SUBCUT SCH (08:15)
[2018-02-02] MEDS: Naloxegol Oxalate 25 MG Tab PO SCH (08:15)
[2018-02-02] MEDS: oxyCODONE 5 MG Tab PO PRN (14:28)
[2018-02-02] MEDS: Simvastatin 20 MG Tab PO SCH (20:10)
[2018-02-02] MEDS: Aspirin 81 MG Tab.EC PO SCH (20:10)
[2018-02-02] MEDS: Sertraline 50 MG Tab PO SCH (20:11)
[2018-02-03] MEDS: Omeprazole 20 MG Cap.CR PO SCH ×2 (05:49→17:07)
[2018-02-03] MEDS: Furosemide 20 MG Tab PO SCH ×2 (06:16→15:04)
[2018-02-03] MEDS: Acetaminophen 500 MG Tab PO SCH ×3 (06:16→23:30)
[2018-02-03] MEDS: oxyCODONE ER 10 MG TAB.ER PO SCH ×2 (09:20→20:17)
[2018-02-03] MEDS: Iron Polysaccharides Complex 150 MG Cap PO SCH (09:21)
[2018-02-03] MEDS: Docusate Sodium 100 MG Cap PO SCH (09:21)
[2018-02-03] MEDS: Allopurinol 100 MG Tab PO SCH (09:22)
[2018-02-03] MEDS: buPROPion 150 MG Tab.ER PO SCH (09:22)
[2018-02-03] MEDS: Zinc (Zinc Gluconate) 50 MG Tab PO SCH (09:22)
[2018-02-03] MEDS: Multivitamins with Minerals/Iron/Folic Acid/Lycopene Tab PO SCH (09:22)
[2018-02-03] MEDS: Naloxegol Oxalate 25 MG Tab PO SCH (09:23)
[2018-02-03] MEDS: Insulin Detemir 100 Units/ML 3 ML Pen SUBCUT SCH (09:23)
[2018-02-03] MEDS: Losartan 50 MG Tab PO SCH (09:27)
[2018-02-03] MEDS: Metoprolol Tartrate 50 MG Tab PO SCH ×2 (09:28→20:16)
[2018-02-03] MEDS: amLODIPine 5 MG Tab PO SCH (09:28)
[2018-02-03] MEDS: Simvastatin 20 MG Tab PO SCH (20:17)
[2018-02-03] MEDS: Aspirin 81 MG Tab.EC PO SCH (20:17)
[2018-02-03] MEDS: Sertraline 50 MG Tab PO SCH (20:17)
[2018-02-04] MEDS: Omeprazole 20 MG Cap.CR PO SCH ×2 (05:49→17:06)
[2018-02-04] MEDS: Furosemide 20 MG Tab PO SCH (06:24)
[2018-02-04] MEDS: Acetaminophen 500 MG Tab PO SCH ×3 (06:24→22:19)
[2018-02-04] MEDS: Allopurinol 100 MG Tab PO SCH (08:17)
[2018-02-04] MEDS: Docusate Sodium 100 MG Cap PO SCH (08:17)
[2018-02-04] MEDS: Naloxegol Oxalate 25 MG Tab PO SCH (08:17)
[2018-02-04] MEDS: Zinc (Zinc Gluconate) 50 MG Tab PO SCH (08:17)
[2018-02-04] MEDS: buPROPion 150 MG Tab.ER PO SCH (08:18)
[2018-02-04] MEDS: Multivitamins with Minerals/Iron/Folic Acid/Lycopene Tab PO SCH (08:18)
[2018-02-04] MEDS: oxyCODONE ER 10 MG TAB.ER PO SCH ×2 (08:18→22:19)
[2018-02-04] MEDS: Iron Polysaccharides Complex 150 MG Cap PO SCH (08:18)
[2018-02-04] MEDS: Polyethylene Glycol 3350 Powder 17 GM Packet PO PRN (08:21)
[2018-02-04] MEDS: Insulin Detemir 100 Units/ML 3 ML Pen SUBCUT SCH (08:22)
[2018-02-04] MEDS: Metoprolol Tartrate 50 MG Tab PO SCH ×2 (08:25→22:18)
[2018-02-04] MEDS: Losartan 50 MG Tab PO SCH (08:25)
[2018-02-04] MEDS: amLODIPine 5 MG Tab PO SCH (08:25)
[2018-02-04] MEDS: Aspirin 81 MG Tab.EC PO SCH (22:17)
[2018-02-04] MEDS: Sertraline 50 MG Tab PO SCH (22:17)
[2018-02-04] MEDS: Simvastatin 20 MG Tab PO SCH (22:18)
[2018-02-05] MEDS: Acetaminophen 500 MG Tab PO SCH ×2 (06:36→14:07)
[2018-02-05] MEDS: Furosemide 20 MG Tab PO SCH ×2 (06:36→14:07)
[2018-02-05] MEDS: Omeprazole 20 MG Cap.CR PO SCH ×2 (06:36→17:19)
[2018-02-05] MEDS: Iron Polysaccharides Complex 150 MG Cap PO SCH (08:40)
[2018-02-05] MEDS: Zinc (Zinc Gluconate) 50 MG Tab PO SCH (08:40)
[2018-02-05] MEDS: Multivitamins with Minerals/Iron/Folic Acid/Lycopene Tab PO SCH (08:40)
[2018-02-05] MEDS: buPROPion 150 MG Tab.ER PO SCH (08:40)
[2018-02-05] MEDS: Allopurinol 100 MG Tab PO SCH (08:40)
[2018-02-05] MEDS: Docusate Sodium 100 MG Cap PO SCH (08:40)
[2018-02-05] MEDS: Metoprolol Tartrate 50 MG Tab PO SCH ×2 (08:40→21:03)
[2018-02-05] MEDS: Losartan 50 MG Tab PO SCH (08:41)
[2018-02-05] MEDS: amLODIPine 5 MG Tab PO SCH (08:41)
[2018-02-05] MEDS: oxyCODONE ER 10 MG TAB.ER PO SCH ×2 (08:41→21:03)
[2018-02-05] MEDS: Insulin Detemir 100 Units/ML 3 ML Pen SUBCUT SCH (08:42)
[2018-02-05] MEDS: Naloxegol Oxalate 25 MG Tab PO SCH (08:42)
[2018-02-05] MEDS: Sertraline 50 MG Tab PO SCH (21:01)
[2018-02-05] MEDS: Aspirin 81 MG Tab.EC PO SCH (21:01)
[2018-02-05] MEDS: Simvastatin 20 MG Tab PO SCH (21:02)
[2018-02-06] MEDS: Acetaminophen 500 MG Tab PO SCH ×4 (01:14→23:40)
[2018-02-06] MEDS: Omeprazole 20 MG Cap.CR PO SCH ×2 (06:22→17:00)
[2018-02-06] MEDS: Furosemide 20 MG Tab PO SCH ×2 (06:22→14:52)
[2018-02-06] MEDS: Metoprolol Tartrate 50 MG Tab PO SCH ×2 (08:38→20:38)
[2018-02-06] MEDS: Iron Polysaccharides Complex 150 MG Cap PO SCH (08:38)
[2018-02-06] MEDS: buPROPion 150 MG Tab.ER PO SCH (08:38)
[2018-02-06] MEDS: Docusate Sodium 100 MG Cap PO SCH (08:38)
[2018-02-06] MEDS: Zinc (Zinc Gluconate) 50 MG Tab PO SCH (08:38)
[2018-02-06] MEDS: Naloxegol Oxalate 25 MG Tab PO SCH (08:38)
[2018-02-06] MEDS: Allopurinol 100 MG Tab PO SCH (08:39)
[2018-02-06] MEDS: Losartan 50 MG Tab PO SCH (08:39)
[2018-02-06] MEDS: Insulin Detemir 100 Units/ML 3 ML Pen SUBCUT SCH (08:39)
[2018-02-06] MEDS: oxyCODONE ER 10 MG TAB.ER PO SCH ×2 (08:39→20:36)
[2018-02-06] MEDS: amLODIPine 5 MG Tab PO SCH (08:39)
[2018-02-06] MEDS: Multivitamins with Minerals/Iron/Folic Acid/Lycopene Tab PO SCH (08:39)
[2018-02-06] MEDS: Sertraline 50 MG Tab PO SCH (20:35)
[2018-02-06] MEDS: Aspirin 81 MG Tab.EC PO SCH (20:35)
[2018-02-06] MEDS: Simvastatin 20 MG Tab PO SCH (20:36)
[2018-02-07] MEDS: Omeprazole 20 MG Cap.CR PO SCH ×2 (06:02→16:44)
[2018-02-07] MEDS: Acetaminophen 500 MG Tab PO SCH ×3 (06:02→23:45)
[2018-02-07] MEDS: Furosemide 20 MG Tab PO SCH (06:03)
[2018-02-07] MEDS: oxyCODONE ER 10 MG TAB.ER PO SCH ×2 (08:17→20:09)
[2018-02-07] MEDS: Insulin Detemir 100 Units/ML 3 ML Pen SUBCUT SCH (08:18)
[2018-02-07] MEDS: Docusate Sodium 100 MG Cap PO SCH (08:19)
[2018-02-07] MEDS: Zinc (Zinc Gluconate) 50 MG Tab PO SCH (08:19)
[2018-02-07] MEDS: Multivitamins with Minerals/Iron/Folic Acid/Lycopene Tab PO SCH (08:19)
[2018-02-07] MEDS: Iron Polysaccharides Complex 150 MG Cap PO SCH (08:19)
[2018-02-07] MEDS: Naloxegol Oxalate 25 MG Tab PO SCH (08:19)
[2018-02-07] MEDS: Losartan 50 MG Tab PO SCH (08:20)
[2018-02-07] MEDS: Metoprolol Tartrate 50 MG Tab PO SCH ×2 (08:21→20:09)
[2018-02-07] MEDS: amLODIPine 5 MG Tab PO SCH (08:22)
[2018-02-07] MEDS: buPROPion 150 MG Tab.ER PO SCH (08:22)
[2018-02-07] MEDS: Allopurinol 100 MG Tab PO SCH (08:26)
[2018-02-07] MEDS: Diclofenac Sodium 1% Gel 100 GM Tube TOP PRN (20:08)
[2018-02-07] MEDS: Sertraline 50 MG Tab PO SCH (20:09)
[2018-02-07] MEDS: Simvastatin 20 MG Tab PO SCH (20:09)
[2018-02-07] MEDS: Aspirin 81 MG Tab.EC PO SCH (20:09)
[2018-02-08] MEDS: Furosemide 20 MG Tab PO SCH ×2 (06:19→14:27)
[2018-02-08] MEDS: Acetaminophen 500 MG Tab PO SCH ×3 (06:20→22:14)
[2018-02-08] MEDS: Omeprazole 20 MG Cap.CR PO SCH ×2 (06:22→18:22)
[2018-02-08] MEDS: Docusate Sodium 100 MG Cap PO SCH (08:35)
[2018-02-08] MEDS: buPROPion 150 MG Tab.ER PO SCH (08:35)
[2018-02-08] MEDS: Naloxegol Oxalate 25 MG Tab PO SCH (08:35)
[2018-02-08] MEDS: Zinc (Zinc Gluconate) 50 MG Tab PO SCH (08:35)
[2018-02-08] MEDS: Multivitamins with Minerals/Iron/Folic Acid/Lycopene Tab PO SCH (08:35)
[2018-02-08] MEDS: Iron Polysaccharides Complex 150 MG Cap PO SCH (08:35)
[2018-02-08] MEDS: amLODIPine 5 MG Tab PO SCH (08:36)
[2018-02-08] MEDS: Losartan 50 MG Tab PO SCH (08:37)
[2018-02-08] MEDS: Metoprolol Tartrate 50 MG Tab PO SCH ×2 (08:37→20:12)
[2018-02-08] MEDS: oxyCODONE ER 10 MG TAB.ER PO SCH ×2 (08:46→20:13)
[2018-02-08] MEDS: Allopurinol 100 MG Tab PO SCH (08:46)
[2018-02-08] MEDS: Insulin Detemir 100 Units/ML 3 ML Pen SUBCUT SCH (08:47)
[2018-02-08] MEDS: oxyCODONE 5 MG Tab PO PRN (14:26)
[2018-02-08] MEDS: Diclofenac Sodium 1% Gel 100 GM Tube TOP PRN (20:12)
[2018-02-08] MEDS: Sertraline 50 MG Tab PO SCH (20:12)
[2018-02-08] MEDS: Aspirin 81 MG Tab.EC PO SCH (20:13)
[2018-02-08] MEDS: Simvastatin 20 MG Tab PO SCH (20:13)
[2018-02-09] MEDS: Acetaminophen 500 MG Tab PO SCH ×3 (06:29→22:54)
[2018-02-09] MEDS: Furosemide 20 MG Tab PO SCH (06:29)
[2018-02-09] MEDS: Omeprazole 20 MG Cap.CR PO SCH ×2 (06:30→17:10)
[2018-02-09] MEDS: Docusate Sodium 100 MG Cap PO SCH (08:17)
[2018-02-09] MEDS: buPROPion 150 MG Tab.ER PO SCH (08:17)
[2018-02-09] MEDS: Naloxegol Oxalate 25 MG Tab PO SCH (08:17)
[2018-02-09] MEDS: Allopurinol 100 MG Tab PO SCH (08:17)
[2018-02-09] MEDS: Multivitamins with Minerals/Iron/Folic Acid/Lycopene Tab PO SCH (08:17)
[2018-02-09] MEDS: Zinc (Zinc Gluconate) 50 MG Tab PO SCH (08:17)
[2018-02-09] MEDS: Insulin Detemir 100 Units/ML 3 ML Pen SUBCUT SCH (08:17)
[2018-02-09] MEDS: Iron Polysaccharides Complex 150 MG Cap PO SCH (08:17)
[2018-02-09] MEDS: oxyCODONE ER 10 MG TAB.ER PO SCH ×2 (08:17→21:00)
[2018-02-09] MEDS: Losartan 50 MG Tab PO SCH (08:19)
[2018-02-09] MEDS: amLODIPine 5 MG Tab PO SCH (08:19)
[2018-02-09] MEDS: Metoprolol Tartrate 50 MG Tab PO SCH ×2 (08:19→21:00)
--- NOTE | 2018-02-09 09:40 | PCM.PN ---
- General Info Date of Service: 02/08/18 Functional Status: Reports: Pain Controlled, Tolerating Diet, Urinating, New Symptoms (Nurses are reporting clogged Pleurx catheter tubing. ) - Review of Systems General: Denies: Fever, Weakness, Fatigue HEENT: Reports: No Symptoms Pulmonary: Reports: No Symptoms Cardiovascular: Reports: No Symptoms Gastrointestinal: Denies: Nausea, Vomiting Genitourinary: Reports: No Symptoms Musculoskeletal: Reports: Shoulder Pain (Left shoulder pain) Skin: Reports: Other (0) Neurological: Reports: Pre-Existing Deficit. Denies: Weakness Psychiatric: Reports: No Symptoms. Denies: Confusion, Agitation - Patient Data Vitals - Most Recent: Last Vital Signs Temp 97.9 F 02/09/18 06:49 Pulse 64 02/09/18 08:19 Resp 20 02/09/18 06:49 BP 160/61 H 02/09/18 08:19 Pulse Ox 93 L 02/09/18 06:49 Weight - Most Recent: 196 lb I&O - Last 24 Hours: Intake & Output 02/08/18 02/09/18 02/09/18 22:59 06:59 14:59 Intake Total 350 200 Balance 350 200 Lab Results Last 24 Hours: Laboratory Results - last 24 hr 02/09/18 Range/Units 06:26 POC Glucose 229 H (74-106) mg/dl Med Orders - Current: Current Medications Acetaminophen (Tylenol Extra Strength) 1,000 mg PO Q8H [facility] Last Admin: 02/09/18 06:29 Dose: 1,000 mg Al Hydroxide/Mg Hydroxide (Mag-Al Susp) 30 ml PO Q6H PRN PRN Reason: Heartburn Last Admin: 01/18/18 12:18 Dose: 30 ml Allopurinol (Zyloprim) 100 mg PO DAILY [facility] Last Admin: 02/09/18 08:17 Dose: 100 mg Amlodipine Besylate (Norvasc) 5 mg PO DAILY [facility] Last Admin: 02/09/18 08:19 Dose: 5 mg Aspirin (Halfprin) 81 mg PO BEDTIME [facility] Last Admin: 02/08/18 20:13 Dose: 81 mg Bisacodyl (Dulcolax) 10 mg RECTAL DAILY PRN PRN Reason: Constipation Last Admin: 01/08/18 11:45 Dose: 10 mg Bupropion HCl (Wellbutrin Xl) 150 mg PO DAILY [facility] Last Admin: 02/09/18 08:17 Dose: 150 mg Diclofenac Sodium (Voltaren 1% Gel) 1 gm TOP QID PRN PRN Reason: Pain Last Admin: 02/08/18 20:12 Dose: 1 applic Docusate Sodium (Colace) 100 mg PO DAILY [facility] Last Admin: 02/09/18 08:17 Dose: 100 mg Furosemide (Lasix) 20 mg PO SuTuThSa@1500 [facility] Last Admin: 02/08/18 14:27 Dose: 20 mg Furosemide (Lasix) 20 mg PO DAILY@0700 [facility] Last Admin: 02/09/18 06:29 Dose: 20 mg Insulin Detemir (Levemir) 40 unit SUBCUT DAILY [facility] Last Admin: 02/09/18 08:17 Dose: 40 units Losartan Potassium (Cozaar) 100 mg PO DAILY [facility] Last Admin: 02/09/18 08:19 Dose: 100 mg Metoprolol Tartrate (Lopressor) 50 mg PO BID [facility] Last Admin: 02/09/18 08:19 Dose: 50 mg Multivitamins/Minerals (Centrum) 1 tab PO DAILY [facility] Last Admin: 02/09/18 08:17 Dose: 1 tab Naloxegol (Movantik) 25 mg PO DAILY [facility] Last Admin: 02/09/18 08:17 Dose: 25 mg Omeprazole (Omeprazole) 20 mg PO BID@0600,1700 [facility] Last Admin: 02/09/18 06:30 Dose: 20 mg Ondansetron HCl (Zofran Odt) 8 mg PO TID PRN PRN Reason: nausea or vomitting Last Admin: 01/26/18 17:53 Dose: 8 mg Oxycodone HCl (Oxycodone) 5 mg PO Q6H PRN PRN Reason: Pain Last Admin: 02/08/18 14:26 Dose: 5 mg Oxycodone HCl (Oxycontin) 10 mg PO Q12H [facility] Last Admin: 02/09/18 08:17 Dose: 10 mg Polyethylene Glycol (Miralax) 17 gm PO DAILY PRN PRN Reason: Constipation Last Admin: 02/04/18 08:21 Dose: 17 gm Polysaccharide Iron Complex (Ferrex 150) 150 mg PO DAILY [facility] Last Admin: 02/09/18 08:17 Dose: 150 mg Prochlorperazine Maleate (Compazine) 10 mg PO QID PRN PRN Reason: Nausea Last Admin: 01/16/18 20:25 Dose: 10 mg Promethazine HCl (Phenergan) 25 mg IM Q6H PRN PRN Reason: Nausea Last Admin: 01/02/18 18:21 Dose: 25 mg Ramelteon (Rozerem) 8 mg PO BEDTIME [facility] Last Admin: 02/08/18 20:13 Dose: 8 mg Senna/Docusate Sodium (Senna Plus) 1 tab PO BEDTIME [facility] Last Admin: 02/08/18 20:13 Dose: 1 tab Sertraline HCl (Zoloft) 150 mg PO BEDTIME [facility] Last Admin: 02/08/18 20:12 Dose: 150 mg Simethicone (Simethicone) 80 mg PO Q6H PRN PRN Reason: Heartburn Last Admin: 01/18/18 06:13 Dose: 80 mg Simvastatin (Zocor) 40 mg PO BEDTIME [facility] Last Admin: 02/08/18 20:13 Dose: 40 mg Zinc Gluconate (Zinc) 50 mg PO DAILY [facility] Last Admin: 02/09/18 08:17 Dose: 50 mg Discontinued Medications Acetaminophen (Tylenol Extra Strength) 1,000 mg PO Q8H [facility] Last Admin: 10/23/17 02:00 Dose: 1,000 mg Acetaminophen (Tylenol Extra Strength) 1,000 mg PO Q8H [facility] Last Admin: 11/22/17 15:12 Dose: 1,000 mg Acetaminophen (Tylenol) Confirm Administered Dose 975 mg .ROUTE .[facility]-MED ONE Stop: 11/08/17 07:36 Last Admin: 11/08/17 08:28 Dose: 975 mg Hydrocodone Bitart/Acetaminophen ([place] 325-5 Mg) 1 - 2 tab PO Q4H PRN PRN Reason: Moderate Pain Last Admin: 10/24/17 19:26 Dose: 1 tab Al Hydroxide/Mg Hydroxide (Mag-Al Susp) Confirm Administered Dose 30 ml .ROUTE .STK-MED ONE Stop: 01/09/18 21:49 Last Admin: 01/09/18 22:00 Dose: 30 ml Al Hydroxide/Mg Hydroxide (Mag-Al Susp) 30 ml PO Q6H PRN PRN Reason: Heartburn Last Admin: 01/09/18 22:00 Dose: 30 ml Bacitracin (Bacitracin Oint) 1 gm TOP DAILY PRN PRN Reason: Rash Bisacodyl (Dulcolax) 10 mg RECTAL ONETIME ONE Stop: 12/21/17 04:02 Last Admin: 12/21/17 04:17 Dose: Not Given Bisacodyl (Dulcolax) Confirm Administered Dose 10 mg .ROUTE .[facility] ONE Stop: 01/08/18 11:37 Last Admin: 01/08/18 16:15 Dose: Not Given Calcium Carbonate/Glycine (Tums) 500 mg PO TID PRN PRN Reason: Indigestion Ciprofloxacin (Ciprofloxacin Hcl) 500 mg PO BID [facility] Stop: 12/24/17 21:01 Last Admin: 12/24/17 21:04 Dose: 500 mg Al Hydroxide/Mg Hydroxide 40 ml/ Diphenhydramine HCl 12.5 mg/ Lidocaine HCl 40 ml 0 ml PO TID PRN PRN Reason: mouth sores/burning Last Admin: 10/28/17 08:11 Dose: 10 ml Cranberry (Azo Cranberry) 1 each PO BEDTIME [facility] Last Admin: 11/07/17 21:46 Dose: Not Given Diclofenac Sodium (Voltaren 1% Gel) 1 gm TOP QID [facility] Last Admin: 01/26/18 08:10 Dose: Not Given Furosemide (Lasix) 20 mg PO DAILY [facility] Last Admin: 12/13/17 09:25 Dose: 20 mg Furosemide (Lasix) 20 mg PO SUTUTHSA@1700 [facility] Last Admin: 12/12/17 16:01 Dose: 20 mg Heparin Sodium (Porcine) (Heparin Lock Flush 100 Units/Ml) 500 units FLUSH ASDIRECTED PRN PRN Reason: Other Cefepime HCl 1 gm/ Sodium (Chloride) 50 mls @ 100 mls/hr IV Q8H [facility] Last Admin: 11/01/17 18:52 Dose: Not Given Cefepime HCl 1 gm/ Sodium (Chloride) 50 mls @ 100 mls/hr IV Q24H [facility] Last Admin: 11/07/17 20:32 Dose: 100 mls/hr Sodium Chloride (Normal Saline) Confirm Administered Dose 50 mls @ as directed .ROUTE .[facility] ONE Stop: 11/02/17 22:10 Last Admin: 11/02/17 23:15 Dose: 100 mls/hr Sodium Chloride (Normal Saline) Confirm Administered Dose 50 mls @ as directed .ROUTE .[facility] ONE Stop: 11/03/17 21:46 Last Admin: 11/03/17 21:56 Dose: Not Given Sodium Chloride (Normal Saline) 50 mls @ 50 mls/hr IV ASDIRECTED [facility] Albumin Human (Flexbumin 25%) 100 mls @ 50 mls/hr IV ONETIME ONE Stop: 11/22/17 13:59 Last Admin: 11/22/17 13:07 Dose: 50 mls/hr Sodium Chloride (Normal Saline) 250 mls @ 125 mls/hr IV ASDIRECTED [facility] Stop: 11/22/17 21:00 Last Admin: 11/22/17 15:40 Dose: 125 mls/hr Ciprofloxacin/Dextrose (Cipro In D5w 400 Mg/200 Ml) 200 mls @ 200 mls/hr IV Q12H [facility] Last Admin: 11/26/17 06:13 Dose: 200 mls/hr Sodium Chloride (Normal Saline) Confirm Administered Dose 100 mls @ as directed .ROUTE .[facility] ONE Stop: 11/22/17 20:04 Last Admin: 11/22/17 20:05 Dose: 100 mls/hr Sodium Chloride (Normal Saline) 100 mls @ 200 mls/hr IV ASDIRECTED [facility] Sodium Chloride (Normal Saline) 100 mls @ 20 mls/hr IV DAILY@1900 [facility] Last Admin: 11/25/17 18:08 Dose: 20 mls/hr Insulin Aspart (Novolog) 0 unit SUBCUT WITHMEALSANDBED [facility]; Protocol Stop: 10/31/17 00:00 Last Admin: 10/30/17 21:02 Dose: 5 units Insulin Aspart (Novolog) 2 unit SUBCUT ONETIME ONE Stop: 10/31/17 20:59 Last Admin: 10/31/17 21:07 Dose: 2 units Insulin Aspart (Novolog) 10 unit SUBCUT ONETIME ONE Stop: 11/12/17 17:44 Last Admin: 11/12/17 18:06 Dose: 10 units Insulin Aspart (Novolog) 0 unit SUBCUT TIDMEALS [facility]; Protocol Last Admin: 12/21/17 17:16 Dose: Not Given Insulin Detemir (Levemir) 44 unit SUBCUT DAILY [facility] Last Admin: 10/30/17 10:10 Dose: Not Given Insulin Detemir (Levemir) 40 unit SUBCUT DAILY [facility] Last Admin: 11/14/17 08:22 Dose: 40 units Insulin Detemir (Levemir) 44 unit SUBCUT DAILY [facility] Last Admin: 11/29/17 11:32 Dose: Not Given Insulin Detemir (Levemir) 34 unit SUBCUT DAILY [facility] Last Admin: 12/02/17 10:11 Dose: Not Given Insulin Detemir (Levemir) 30 unit SUBCUT DAILY [facility] Last Admin: 12/20/17 08:02 Dose: 30 units Insulin Detemir (Levemir) 10 unit SUBCUT ONETIME ONE Stop: 12/20/17 13:01 Last Admin: 12/20/17 14:38 Dose: 10 units Lidocaine/Epinephrine (Xylocaine 1% With Epinephrine 1:100,000) 3 ml INJECT ONETIME ONE Stop: 11/05/17 09:01 Last Admin: 11/05/17 09:00 Dose: 3 ml Loperamide HCl (Imodium) 2 mg PO ASDIRECTED PRN PRN Reason: Diarrhea Last Admin: 11/30/17 05:53 Dose: 2 mg Lorazepam (Ativan) 0.25 mg PO Q8H PRN PRN Reason: Anxiety Last Admin: 12/13/17 18:03 Dose: 0.25 mg Lorazepam (Ativan) 0.25 mg PO Q8H PRN PRN Reason: Anxiety Losartan Potassium (Cozaar) 25 mg PO DAILY [facility] Last Admin: 11/27/17 09:05 Dose: 25 mg Losartan Potassium (Cozaar) 50 mg PO DAILY [facility] Last Admin: 12/25/17 08:57 Dose: 50 mg Losartan Potassium (Cozaar) 75 mg PO DAILY [facility] Last Admin: 01/17/18 08:26 Dose: 75 mg Magnesium Hydroxide (Milk Of Magnesia) 30 ml PO DAILY PRN PRN Reason: Constipation Last Admin: 10/26/17 09:10 Dose: 30 ml Multivitamins/Minerals (Centrum) 1 tab PO DAILY [facility] Last Admin: 12/20/17 08:03 Dose: 1 tab Multivitamins/Minerals (Centrum) 1 tab PO DAILY@1200 [facility] Last Admin: 12/27/17 11:36 Dose: 1 tab Mupirocin (Bactroban Crm) 1 gm TOP TID [facility] Last Admin: 10/29/17 11:29 Dose: Not Given Mupirocin (Bactroban Oint) 0 gm TOP DAILY [facility] Last Admin: 12/06/17 10:12 Dose: 1 applic Insulin Degludec ( (Tresiba) 44units) 44 units SUBCUT DAILY [facility] Nystatin (Nystop) 0 gm TOP BID [facility] Last Admin: 10/25/17 08:58 Dose: 1 applic Nystatin (Nystop) 0 gm TOP TID [facility] Last Admin: 10/26/17 11:15 Dose: Not Given Nystatin (Nystatin Ointment) 0 gm TOP TID [facility] Last Admin: 11/04/17 15:49 Dose: Not Given Nystatin (Nystatin Ointment) 1 gm TOP DAILY PRN PRN Reason: Rash Last Admin: 12/26/17 08:19 Dose: 1 applic Nystatin (Nystatin Ointment) 1 gm TOP BID [facility] Last Admin: 01/01/18 09:12 Dose: Not Given Nystatin (Nystatin Ointment) 1 gm TOP BID PRN PRN Reason: Rash Nystatin (Nystatin Ointment) 0 gm TOP BID PRN PRN Reason: Rash Olanzapine (Zyprexa) 10 mg PO ASDIRECTED [facility] Olanzapine (Zyprexa) 10 mg PO BEDTIME [facility] Stop: 11/14/17 21:01 Last Admin: 11/14/17 21:28 Dose: 10 mg Olanzapine (Zyprexa) 10 mg PO BEDTIME [facility] Stop: 11/22/17 21:01 Last Admin: 11/22/17 21:41 Dose: 10 mg Omeprazole (Omeprazole) 20 mg PO SUTUTHSA@2100 [facility] Last Admin: 10/23/17 21:24 Dose: 20 mg Omeprazole (Omeprazole) 20 mg PO DAILY@2100 [facility] Last Admin: 12/11/17 20:18 Dose: 20 mg Omeprazole (Omeprazole) 20 mg PO BID [facility] Last Admin: 12/13/17 09:27 Dose: 20 mg Omeprazole (Omeprazole) 20 mg PO BIDAC [facility] Last Admin: 12/17/17 16:45 Dose: 20 mg Omeprazole (Omeprazole) 20 mg PO DAILY@0600,1700 [facility] Last Admin: 01/20/18 06:27 Dose: 20 mg Oxycodone HCl (Oxycodone) 5 mg PO Q6H [facility] Last Admin: 10/23/17 06:11 Dose: 5 mg Oxycodone HCl (Oxycodone) 5 mg PO Q6H [facility] Last Admin: 10/24/17 06:21 Dose: Not Given Oxycodone HCl (Oxycodone) 5 mg PO BEDTIME [facility] Last Admin: 12/07/17 20:02 Dose: 5 mg Oxycodone HCl (Oxycodone) 5 mg PO ONETIME ONE Stop: 11/23/17 18:12 Last Admin: 11/23/17 18:48 Dose: 5 mg Oxycodone HCl (Oxycodone) 7.5 mg PO BEDTIME [facility] Stop: 12/13/17 23:00 Last Admin: 12/13/17 20:05 Dose: 7.5 mg Oxycodone HCl (Oxycodone) 5 mg PO ONETIME ONE Stop: 12/13/17 17:59 Last Admin: 12/13/17 18:21 Dose: 5 mg Oxycodone HCl (Oxycontin) Confirm Administered Dose 10 mg .ROUTE .STK-MED ONE Stop: 12/31/17 11:25 Last Admin: 12/31/17 11:26 Dose: 10 mg Polysaccharide Iron Complex (Ferrex 150) 150 mg PO DAILY [facility] Last Admin: 12/20/17 08:05 Dose: 150 mg Polysaccharide Iron Complex (Ferrex 150) 150 mg PO DAILY@1200 [facility] Last Admin: 12/27/17 11:36 Dose: 150 mg Prochlorperazine Maleate (Compazine) 10 mg PO QID PRN PRN Reason: Nausea Senna/Docusate Sodium (Senna Plus) 1 tab PO BID PRN PRN Reason: Constipation Last Admin: 10/28/17 08:08 Dose: 1 tab Senna/Docusate Sodium (Senna Plus) 1 tab PO BID [facility] Last Admin: 11/04/17 15:49 Dose: Not Given Senna/Docusate Sodium (Senna Plus) 1 - 2 tab PO DAILY PRN PRN Reason: Constipation Sertraline HCl (Zoloft) 100 mg PO BEDTIME [facility] Last Admin: 01/07/18 20:58 Dose: 100 mg Sodium Chloride ([place]) 1 ml ALDO QID PRN PRN Reason: Dryness Last Admin: 11/12/17 21:03 Dose: 1 spray Sodium Chloride (Normal Saline) 20 ml FLUSH ASDIRECTED PRN PRN Reason: Other Sodium Chloride (Saline Flush) 20 ml FLUSH Q8H [facility] Last Admin: 11/02/17 10:46 Dose: Not Given Sodium Chloride (Saline Flush) 20 ml FLUSH Q8H [facility] Last Admin: 11/11/17 12:20 Dose: Not Given Zinc Gluconate (Zinc) 50 mg PO DAILY [facility] Last Admin: 12/20/17 08:05 Dose: 50 mg Zinc Gluconate (Zinc) 50 mg PO DAILY@1200 [facility] Last Admin: 12/27/17 11:35 Dose: 50 mg - Exam Quality Assessment: No: Supplemental Oxygen General: Alert, Oriented Lungs: Clear to Auscultation, Normal Respiratory Effort Cardiovascular: Regular Rate, Regular Rhythm GI/Abdominal Exam: Soft (Female) Exam: Deferred Back Exam: No: CVA Tenderness (L), CVA Tenderness (R) Extremities: No Pedal Edema Wound/Incisions: Other (Decubitus ulcer slightly improved good granulation does have 2 cm tunneling superior to the wound. Approximately 50% healed. No signs of infection no odor) Neurological: Normal Speech, Other (4/5 strength) Psy/Mental Status: Alert, Normal Affect, Normal Mood - Problem List Review Problem List Initiated/Reviewed/Updated: Yes - My Orders Last 24 Hours: My Active Orders 02/08/18 10:52 Communication Order [RC] DAILY - Plan Plan:: HPI: This is a 76 year old female who had previously been in swing bed status due to a left humeral fracture and deconditioning. The patient has been recently diagnosed with peritoneal carcinomatosis. The patient was sent up to [facility] on 10/20/17 for abdominal paracentesis and pleurx catheter placement. She had labs done that day which showed a hemoglobin of 6.5. She was then admitted to their hospitalist services. She was given 2 units of PRBCs. She was due for her second cycle of carboplatin and taxol while there and this was completed on 10/21/17. She was also given Neulasta prior to discharge. The patient was admitted back to swing bed status for rehabilitation of her fracture and deconditioning. PRIMARY ASSESSMENT/PLAN: Left humeral head fracture. Patient with periodic pain. We will set patient up to see orthopedic surgeon Dr. Singer [facility]. No change in position after recent fall. Xray report notes unchanged since 11/12/17. Continue with ROM and strengthening. Stage IV pressure ulcer to coccyx, removed NPWT due to observed undermining/ sinus tracting in wound, and the need for repeated shars debridement, along with little to no drainage. Some interval healing since removal. Deconditioning. Continue physical therapy Immunocompromised host. Malignant ascites. PleurX catheter clogged. I surgically clipped tubing and reapplied catheter tip. Now drainage--we'll see how this works for her. They need to be discontinued if no drainage. Anemia due to antineoplastic chemotherapy. Hgb stable at 12.3. Recent Unwitnessed fall. Patient found on floor this morning by [employer] and was laying on her left side. Patient initially complained of left sided head, shoulder, and hip pain. Head CT negative for acute intracranial processes. Xray report of left hip notes no fracture or dislocation. Xray report of left humerus notes no change since 11/12/17. SECONDARY ASSESSMENT/PLAN: Primary peritoneal carcinomatosis. Followed by Dr. Collier/oncology with ongoing Pleurx abdominal drain. History of endometrial cancer, s/p hysterceomty 2009. CAD, no ischemic picture, stable. HTN. Continue lopressor and losartan and Norvasc 5 mg Aortic stenosis. History of atrial flutter. Type 2 DM. Not optimal fastings. Accuchecks daily. Tresiba switched to levemir daily due to not being available in house. Increase to 42 units CKD stage 3. Hyperlipidemia. Continue simvastatin. Obesity. Gout. Continue allopurinol 100 mg daily. Diabetic retinopathy. Depression. Continue zoloft. GERD. Continue omeprazole. OAB. Osteoarthritis. History of hypercalcemia. Recent Hypoalbuminemia. DVT prophylaxis. Score of 6, Continue with phan stockings. Overall plan: Continue an SNF with PT until February 26 and patient will be 2 long-term care. Orthopedic consultation with Dr. Singer [facility]
[2018-02-09] MEDS ORDERED: Iron Polysaccharides Complex 150 MG Cap PO SCH (10:15)
[2018-02-09] MEDS: Aspirin 81 MG Tab.EC PO SCH (21:00)
[2018-02-09] MEDS: Sertraline 50 MG Tab PO SCH (21:00)
[2018-02-09] MEDS: Simvastatin 20 MG Tab PO SCH (21:00)
[2018-02-10] MEDS: Omeprazole 20 MG Cap.CR PO SCH ×2 (06:00→17:23)
[2018-02-10] MEDS: Furosemide 20 MG Tab PO SCH ×2 (06:27→15:07)
[2018-02-10] MEDS: Acetaminophen 500 MG Tab PO SCH ×2 (06:27→15:07)
[2018-02-10 07:48] LABS: ANION GAP 12.1 mmol/L (5-15)
[2018-02-10] MEDS: Allopurinol 100 MG Tab PO SCH (08:27)
[2018-02-10] MEDS: Zinc (Zinc Gluconate) 50 MG Tab PO SCH (08:27)
[2018-02-10] MEDS: oxyCODONE ER 10 MG TAB.ER PO SCH ×2 (08:28→20:35)
[2018-02-10] MEDS: Naloxegol Oxalate 25 MG Tab PO SCH (08:28)
[2018-02-10] MEDS: buPROPion 150 MG Tab.ER PO SCH (08:28)
[2018-02-10] MEDS: Metoprolol Tartrate 50 MG Tab PO SCH ×2 (08:28→20:35)
[2018-02-10] MEDS: amLODIPine 5 MG Tab PO SCH (08:28)
[2018-02-10] MEDS: Insulin Detemir 100 Units/ML 3 ML Pen SUBCUT SCH (08:29)
[2018-02-10] MEDS: Losartan 50 MG Tab PO SCH (08:30)
[2018-02-10] MEDS: Multivitamins with Minerals/Iron/Folic Acid/Lycopene Tab PO SCH (08:30)
[2018-02-10] MEDS: Docusate Sodium 100 MG Cap PO SCH (08:30)
[2018-02-10] MEDS: Sertraline 50 MG Tab PO SCH (20:35)
[2018-02-10] MEDS: Aspirin 81 MG Tab.EC PO SCH (20:36)
[2018-02-10] MEDS: Simvastatin 20 MG Tab PO SCH (20:36)
[2018-02-11] MEDS: Acetaminophen 500 MG Tab PO SCH ×4 (02:07→23:07)
[2018-02-11] MEDS: oxyCODONE 5 MG Tab PO PRN (02:08)
[2018-02-11] MEDS: Omeprazole 20 MG Cap.CR PO SCH ×2 (05:54→17:01)
[2018-02-11] MEDS: Furosemide 20 MG Tab PO SCH (06:32)
[2018-02-11] MEDS: Zinc (Zinc Gluconate) 50 MG Tab PO SCH (08:12)
[2018-02-11] MEDS: Naloxegol Oxalate 25 MG Tab PO SCH (08:13)
[2018-02-11] MEDS: Allopurinol 100 MG Tab PO SCH (08:13)
[2018-02-11] MEDS: Docusate Sodium 100 MG Cap PO SCH (08:13)
[2018-02-11] MEDS: Metoprolol Tartrate 50 MG Tab PO SCH ×2 (08:13→20:23)
[2018-02-11] MEDS: Iron Polysaccharides Complex 150 MG Cap PO SCH (08:13)
[2018-02-11] MEDS: buPROPion 150 MG Tab.ER PO SCH (08:13)
[2018-02-11] MEDS: Multivitamins with Minerals/Iron/Folic Acid/Lycopene Tab PO SCH (08:13)
[2018-02-11] MEDS: Losartan 50 MG Tab PO SCH (08:14)
[2018-02-11] MEDS: amLODIPine 5 MG Tab PO SCH (08:14)
[2018-02-11] MEDS: Insulin Detemir 100 Units/ML 3 ML Pen SUBCUT SCH (08:15)
[2018-02-11] MEDS: oxyCODONE ER 10 MG TAB.ER PO SCH ×2 (08:15→20:24)
[2018-02-11] MEDS: Aspirin 81 MG Tab.EC PO SCH (20:21)
[2018-02-11] MEDS: Sertraline 50 MG Tab PO SCH (20:21)
[2018-02-11] MEDS: Simvastatin 20 MG Tab PO SCH (20:21)
[2018-02-12] MEDS: Omeprazole 20 MG Cap.CR PO SCH ×2 (05:46→17:03)
[2018-02-12] MEDS: Acetaminophen 500 MG Tab PO SCH ×3 (06:11→22:43)
[2018-02-12] MEDS: Furosemide 20 MG Tab PO SCH ×2 (06:11→14:37)
[2018-02-12] MEDS: Insulin Detemir 100 Units/ML 3 ML Pen SUBCUT SCH (08:06)
[2018-02-12] MEDS: oxyCODONE ER 10 MG TAB.ER PO SCH ×2 (08:06→21:49)
[2018-02-12] MEDS: buPROPion 150 MG Tab.ER PO SCH (08:07)
[2018-02-12] MEDS: Docusate Sodium 100 MG Cap PO SCH (08:07)
[2018-02-12] MEDS: Metoprolol Tartrate 50 MG Tab PO SCH ×2 (08:07→21:54)
[2018-02-12] MEDS: Losartan 50 MG Tab PO SCH (08:08)
[2018-02-12] MEDS: amLODIPine 5 MG Tab PO SCH (08:08)
[2018-02-12] MEDS: Zinc (Zinc Gluconate) 50 MG Tab PO SCH (08:08)
[2018-02-12] MEDS: Naloxegol Oxalate 25 MG Tab PO SCH (08:08)
[2018-02-12] MEDS: Multivitamins with Minerals/Iron/Folic Acid/Lycopene Tab PO SCH (08:08)
[2018-02-12] MEDS: Allopurinol 100 MG Tab PO SCH (08:08)
[2018-02-12] MEDS: oxyCODONE 5 MG Tab PO PRN (11:10)
[2018-02-12] MEDS: Sertraline 50 MG Tab PO SCH (21:49)
[2018-02-12] MEDS: Simvastatin 20 MG Tab PO SCH (21:50)
[2018-02-12] MEDS: Aspirin 81 MG Tab.EC PO SCH (21:51)
[2018-02-13] MEDS: Acetaminophen 500 MG Tab PO SCH ×2 (06:04→14:52)
[2018-02-13] MEDS: Furosemide 20 MG Tab PO SCH ×2 (06:05→14:52)
[2018-02-13] MEDS: Omeprazole 20 MG Cap.CR PO SCH ×2 (06:05→16:49)
[2018-02-13] MEDS: Multivitamins with Minerals/Iron/Folic Acid/Lycopene Tab PO SCH (08:09)
[2018-02-13] MEDS: Zinc (Zinc Gluconate) 50 MG Tab PO SCH (08:09)
[2018-02-13] MEDS: Naloxegol Oxalate 25 MG Tab PO SCH (08:09)
[2018-02-13] MEDS: Docusate Sodium 100 MG Cap PO SCH (08:09)
[2018-02-13] MEDS: buPROPion 150 MG Tab.ER PO SCH (08:09)
[2018-02-13] MEDS: Iron Polysaccharides Complex 150 MG Cap PO SCH (08:09)
[2018-02-13] MEDS: Losartan 50 MG Tab PO SCH (08:09)
[2018-02-13] MEDS: Polyethylene Glycol 3350 Powder 17 GM Packet PO PRN (08:10)
[2018-02-13] MEDS: Metoprolol Tartrate 50 MG Tab PO SCH ×2 (08:10→20:25)
[2018-02-13] MEDS: Allopurinol 100 MG Tab PO SCH (08:10)
[2018-02-13] MEDS: oxyCODONE ER 10 MG TAB.ER PO SCH ×2 (08:10→20:23)
[2018-02-13] MEDS: amLODIPine 5 MG Tab PO SCH (08:10)
[2018-02-13] MEDS: Insulin Detemir 100 Units/ML 3 ML Pen SUBCUT SCH (08:10)
[2018-02-13] MEDS: Simvastatin 20 MG Tab PO SCH (20:23)
[2018-02-13] MEDS: Aspirin 81 MG Tab.EC PO SCH (20:23)
[2018-02-13] MEDS: Sertraline 50 MG Tab PO SCH (20:24)
[2018-02-14] MEDS: Acetaminophen 500 MG Tab PO SCH ×4 (00:11→23:45)
[2018-02-14] MEDS: Omeprazole 20 MG Cap.CR PO SCH ×2 (06:05→17:03)
[2018-02-14] MEDS: Furosemide 20 MG Tab PO SCH (06:05)
[2018-02-14] MEDS: buPROPion 150 MG Tab.ER PO SCH (09:00)
[2018-02-14] MEDS: oxyCODONE ER 10 MG TAB.ER PO SCH ×2 (09:00→20:03)
[2018-02-14] MEDS: Multivitamins with Minerals/Iron/Folic Acid/Lycopene Tab PO SCH (09:00)
[2018-02-14] MEDS: Zinc (Zinc Gluconate) 50 MG Tab PO SCH (09:00)
[2018-02-14] MEDS: Insulin Detemir 100 Units/ML 3 ML Pen SUBCUT SCH (09:00)
[2018-02-14] MEDS: Naloxegol Oxalate 25 MG Tab PO SCH (09:00)
[2018-02-14] MEDS: Docusate Sodium 100 MG Cap PO SCH (09:00)
[2018-02-14] MEDS: Allopurinol 100 MG Tab PO SCH (09:00)
[2018-02-14] MEDS: amLODIPine 5 MG Tab PO SCH (09:01)
[2018-02-14] MEDS: Metoprolol Tartrate 50 MG Tab PO SCH ×2 (09:01→20:03)
[2018-02-14] MEDS: Losartan 50 MG Tab PO SCH (09:01)
[2018-02-14] MEDS: oxyCODONE 5 MG Tab PO PRN (13:38)
[2018-02-14] MEDS: Sertraline 50 MG Tab PO SCH (20:02)
[2018-02-14] MEDS: Aspirin 81 MG Tab.EC PO SCH (20:02)
[2018-02-14] MEDS: Simvastatin 20 MG Tab PO SCH (20:03)
[2018-02-15] MEDS: Acetaminophen 500 MG Tab PO SCH ×3 (06:43→22:06)
[2018-02-15] MEDS: Furosemide 20 MG Tab PO SCH ×2 (06:44→16:07)
[2018-02-15] MEDS: Omeprazole 20 MG Cap.CR PO SCH ×2 (06:44→16:07)
[2018-02-15] MEDS: oxyCODONE ER 10 MG TAB.ER PO SCH ×2 (08:45→20:05)
[2018-02-15] MEDS: Iron Polysaccharides Complex 150 MG Cap PO SCH (08:46)
[2018-02-15] MEDS: Naloxegol Oxalate 25 MG Tab PO SCH (08:46)
[2018-02-15] MEDS: Losartan 50 MG Tab PO SCH (08:47)
[2018-02-15] MEDS: Multivitamins with Minerals/Iron/Folic Acid/Lycopene Tab PO SCH (08:47)
[2018-02-15] MEDS: Docusate Sodium 100 MG Cap PO SCH (08:47)
[2018-02-15] MEDS: Insulin Detemir 100 Units/ML 3 ML Pen SUBCUT SCH (08:50)
[2018-02-15] MEDS: Metoprolol Tartrate 50 MG Tab PO SCH (08:51)
[2018-02-15] MEDS: Allopurinol 100 MG Tab PO SCH (08:51)
[2018-02-15] MEDS: Zinc (Zinc Gluconate) 50 MG Tab PO SCH (08:51)
[2018-02-15] MEDS: buPROPion 150 MG Tab.ER PO SCH (08:51)
[2018-02-15] MEDS: amLODIPine 5 MG Tab PO SCH (08:52)
[2018-02-15] MEDS: Metoprolol Tartrate 100 MG Tab PO SCH (20:05)
[2018-02-15] MEDS: Simvastatin 20 MG Tab PO SCH (20:06)
[2018-02-15] MEDS: Sertraline 100 MG Tab PO SCH (20:07)
[2018-02-15] MEDS: Aspirin 81 MG Tab.EC PO SCH (20:07)
[2018-02-16] MEDS: Acetaminophen 500 MG Tab PO SCH ×3 (06:46→22:32)
[2018-02-16] MEDS: Omeprazole 20 MG Cap.CR PO SCH ×2 (06:47→17:36)
[2018-02-16] MEDS: Furosemide 20 MG Tab PO SCH (06:47)
[2018-02-16] MEDS: Multivitamins with Minerals/Iron/Folic Acid/Lycopene Tab PO SCH (08:22)
[2018-02-16] MEDS: oxyCODONE ER 10 MG TAB.ER PO SCH ×2 (08:22→22:32)
[2018-02-16] MEDS: Naloxegol Oxalate 25 MG Tab PO SCH (08:22)
[2018-02-16] MEDS: buPROPion 150 MG Tab.ER PO SCH (08:22)
[2018-02-16] MEDS: Zinc (Zinc Gluconate) 50 MG Tab PO SCH (08:22)
[2018-02-16] MEDS: Docusate Sodium 100 MG Cap PO SCH (08:22)
[2018-02-16] MEDS: Allopurinol 100 MG Tab PO SCH (08:23)
[2018-02-16] MEDS: amLODIPine 5 MG Tab PO SCH (08:24)
[2018-02-16] MEDS: Metoprolol Tartrate 100 MG Tab PO SCH ×2 (08:24→22:35)
[2018-02-16] MEDS: Insulin Detemir 100 Units/ML 3 ML Pen SUBCUT SCH (08:24)
[2018-02-16] MEDS: Losartan 50 MG Tab PO SCH (08:24)
[2018-02-16] MEDS: Ondansetron 4 MG Tab PO PRN (09:46)
[2018-02-16] MEDS: Diclofenac Sodium 1% Gel 100 GM Tube TOP PRN (17:37)
[2018-02-16] MEDS: Aspirin 81 MG Tab.EC PO SCH (22:33)
[2018-02-16] MEDS: Simvastatin 20 MG Tab PO SCH (22:33)
[2018-02-16] MEDS: Sertraline 100 MG Tab PO SCH (22:34)
[2018-02-17] MEDS: Omeprazole 20 MG Cap.CR PO SCH ×2 (05:33→17:02)
[2018-02-17] MEDS: Furosemide 20 MG Tab PO SCH ×2 (06:25→14:29)
[2018-02-17] MEDS: Acetaminophen 500 MG Tab PO SCH ×3 (06:26→22:21)
[2018-02-17] MEDS: Naloxegol Oxalate 25 MG Tab PO SCH (08:40)
[2018-02-17] MEDS: amLODIPine 5 MG Tab PO SCH (08:41)
[2018-02-17] MEDS: Insulin Detemir 100 Units/ML 3 ML Pen SUBCUT SCH (08:42)
[2018-02-17] MEDS: Metoprolol Tartrate 100 MG Tab PO SCH ×2 (08:44→20:12)
[2018-02-17] MEDS: Losartan 100 MG Tab PO SCH (08:44)
[2018-02-17] MEDS: Allopurinol 100 MG Tab PO SCH (08:44)
[2018-02-17] MEDS: Zinc (Zinc Gluconate) 50 MG Tab PO SCH (08:45)
[2018-02-17] MEDS: buPROPion 150 MG Tab.ER PO SCH (08:45)
[2018-02-17] MEDS: Multivitamins with Minerals/Iron/Folic Acid/Lycopene Tab PO SCH (08:46)
[2018-02-17] MEDS: Docusate Sodium 100 MG Cap PO SCH (08:46)
[2018-02-17] MEDS: Iron Polysaccharides Complex 150 MG Cap PO SCH (08:46)
[2018-02-17] MEDS: oxyCODONE ER 10 MG TAB.ER PO SCH ×2 (09:04→20:11)
[2018-02-17] MEDS: Aspirin 81 MG Tab.EC PO SCH (20:11)
[2018-02-17] MEDS: Sertraline 100 MG Tab PO SCH (20:12)
[2018-02-17] MEDS: Simvastatin 20 MG Tab PO SCH (20:13)
[2018-02-17] MEDS: ROZEREM 8 MG PO SCH (20:13)
[2018-02-17] MEDS ORDERED: Melatonin 3 MG Tab PO SCH (21:00)
[2018-02-18] MEDS: Omeprazole 20 MG Cap.CR PO SCH ×2 (05:17→17:13)
[2018-02-18] MEDS: Furosemide 20 MG Tab PO SCH (06:19)
[2018-02-18] MEDS: Acetaminophen 500 MG Tab PO SCH ×3 (06:19→22:00)
[2018-02-18] MEDS ORDERED: ALPRAZolam 0.25 MG Tab PO PRN (08:27)
[2018-02-18] MEDS: Docusate Sodium 100 MG Cap PO SCH (09:04)
[2018-02-18] MEDS: Metoprolol Tartrate 100 MG Tab PO SCH ×2 (09:04→21:54)
[2018-02-18] MEDS: Zinc (Zinc Gluconate) 50 MG Tab PO SCH (09:04)
[2018-02-18] MEDS: Multivitamins with Minerals/Iron/Folic Acid/Lycopene Tab PO SCH (09:04)
[2018-02-18] MEDS: Naloxegol Oxalate 25 MG Tab PO SCH (09:05)
[2018-02-18] MEDS: Allopurinol 100 MG Tab PO SCH (09:05)
--- NOTE | 2018-02-18 09:05 | PCM.PN ---
- General Info Date of Service: 02/18/18 Functional Status: Reports: Pain Controlled, Tolerating Diet, Ambulating, Urinating, New Symptoms (Increasing anxiety situational due to upcoming wedding) - Review of Systems General: Reports: Weakness HEENT: Reports: No Symptoms Pulmonary: Reports: No Symptoms Cardiovascular: Reports: Edema (Chronic edema lower extremities left worse than right) Gastrointestinal: Reports: No Symptoms Genitourinary: Reports: Incontinence Musculoskeletal: Reports: Shoulder Pain (Left shoulder pain) Skin: Reports: No Symptoms Neurological: Reports: Confusion (Some reports of transient confusion at night) Psychiatric: Reports: Anxiety. Denies: Agitation - Patient Data Vitals - Most Recent: Last Vital Signs Temp 98.3 F 02/18/18 06:17 Pulse 55 L 02/18/18 06:17 Resp 18 02/18/18 06:17 BP 148/60 H 02/18/18 06:17 Pulse Ox 92 L 02/18/18 06:17 Weight - Most Recent: 195 lb 8 oz I&O - Last 24 Hours: Intake & Output 02/17/18 02/18/18 02/18/18 22:59 06:59 14:59 Intake Total 400 300 Balance 400 300 Lab Results Last 24 Hours: Laboratory Results - last 24 hr 02/17/18 02/18/18 Range/Units 06:24 06:18 POC Glucose 116 H 92 (74-106) mg/dl Med Orders - Current: Current Medications Acetaminophen (Tylenol Extra Strength) 1,000 mg PO Q8H [facility] Last Admin: 02/18/18 06:19 Dose: 1,000 mg Al Hydroxide/Mg Hydroxide (Mag-Al Susp) 30 ml PO Q6H PRN PRN Reason: Heartburn Last Admin: 01/18/18 12:18 Dose: 30 ml Alprazolam (Xanax) 0.25 mg PO Q8H PRN PRN Reason: Anxiety Aspirin (Halfprin) 81 mg PO BEDTIME [facility] Last Admin: 02/17/18 20:11 Dose: 81 mg Bisacodyl (Dulcolax) 10 mg RECTAL DAILY PRN PRN Reason: Constipation Last Admin: 01/08/18 11:45 Dose: 10 mg Docusate Sodium (Colace) 100 mg PO DAILY [facility] Last Admin: 02/17/18 08:46 Dose: 100 mg Multivitamins/Minerals (Centrum) 1 tab PO DAILY [facility] Last Admin: 02/17/18 08:46 Dose: 1 tab Allopurinol 100 Mg (Tab) 1 each PO DAILY [facility] Last Admin: 02/17/18 08:44 Dose: 1 each Metoprolol Tartrate (100 Mg Tab) 0.5 each PO BID [facility] Last Admin: 02/17/18 20:12 Dose: 0.5 each Simvastatin 20 Mg (Tab) 1 each PO BEDTIME [facility] Last Admin: 02/17/18 20:13 Dose: 1 each Prochlorperazine 10 (Mg Tab) 1 each PO QID PRN PRN Reason: Nausea Furosemide 20 Mg Tab 1 each PO SuTuThSa@1500 [facility] Last Admin: 02/17/18 14:29 Dose: 1 each Furosemide 20 Mg Tab 1 each PO DAILY@0700 [facility] Last Admin: 02/18/18 06:19 Dose: 1 each Sertraline 100 Mg (Tab) 1.5 each PO BEDTIME [facility] Last Admin: 02/17/18 20:12 Dose: 1.5 each Omeprazole 20 Mg Cap (.Cr) 1 each PO BID@0600,1700 [facility] Last Admin: 02/18/18 05:17 Dose: 1 each Ondansetron 4 Mg Tab 2 each PO TID PRN PRN Reason: nausea or vomitting Last Admin: 02/16/18 09:46 Dose: 2 each Naloxegol Oxalate 25 (Mg Tab) 1 each PO DAILY [facility] Last Admin: 02/17/18 08:40 Dose: 1 each Bupropion 150 Mg Tab (.Er) 1 each PO DAILY [facility] Last Admin: 02/17/18 08:45 Dose: 1 each Losartan 100 Mg Tab 1 each PO DAILY [facility] Last Admin: 02/17/18 08:44 Dose: 1 each Amlodipine 5 Mg Tab 5 each PO DAILY [facility] Last Admin: 02/17/18 08:41 Dose: 5 each Oxycodone Er 10 Mg (Tab.Er) 1 each PO Q12H [facility] Last Admin: 02/17/18 20:11 Dose: 1 each Oxycodone 5 Mg Tab 5 each PO Q6H PRN PRN Reason: Pain Insulin Detemir 100 (Units/Ml 3 Ml Pen) 42 each SUBCUT DAILY [facility] Last Admin: 02/17/18 08:42 Dose: 42 each Diclofenac Sodium 1% (Gel 100 Gm Tube) 1 each TOP QID PRN PRN Reason: Pain Last Admin: 02/16/18 17:37 Dose: 1 each Rozerem 8mg Tablet 1 each PO BEDTIME [facility] Last Admin: 02/17/18 20:13 Dose: 1 each Polyethylene Glycol (Miralax) 17 gm PO DAILY PRN PRN Reason: Constipation Last Admin: 02/13/18 08:10 Dose: 17 gm Polysaccharide Iron Complex (Ferrex 150) 150 mg PO Q48H [facility] Last Admin: 02/17/18 08:46 Dose: 150 mg Promethazine HCl (Phenergan) 25 mg IM Q6H PRN PRN Reason: Nausea Last Admin: 01/02/18 18:21 Dose: 25 mg Senna/Docusate Sodium (Senna Plus) 1 tab PO BEDTIME [facility] Last Admin: 02/17/18 20:11 Dose: 1 tab Simethicone (Simethicone) 80 mg PO Q6H PRN PRN Reason: Heartburn Last Admin: 01/18/18 06:13 Dose: 80 mg Zinc Gluconate (Zinc) 50 mg PO DAILY [facility] Last Admin: 02/17/18 08:45 Dose: 50 mg Discontinued Medications Acetaminophen (Tylenol Extra Strength) 1,000 mg PO Q8H [facility] Last Admin: 10/23/17 02:00 Dose: 1,000 mg Acetaminophen (Tylenol Extra Strength) 1,000 mg PO Q8H [facility] Last Admin: 11/22/17 15:12 Dose: 1,000 mg Acetaminophen (Tylenol) Confirm Administered Dose 975 mg .ROUTE .STK-MED ONE Stop: 11/08/17 07:36 Last Admin: 11/08/17 08:28 Dose: 975 mg Hydrocodone Bitart/Acetaminophen (Parlin 325-5 Mg) 1 - 2 tab PO Q4H PRN PRN Reason: Moderate Pain Last Admin: 10/24/17 19:26 Dose: 1 tab Al Hydroxide/Mg Hydroxide (Mag-Al Susp) Confirm Administered Dose 30 ml .ROUTE .STK-MED ONE Stop: 01/09/18 21:49 Last Admin: 01/09/18 22:00 Dose: 30 ml Al Hydroxide/Mg Hydroxide (Mag-Al Susp) 30 ml PO Q6H PRN PRN Reason: Heartburn Last Admin: 01/09/18 22:00 Dose: 30 ml Allopurinol (Zyloprim) 100 mg PO DAILY [facility] Last Admin: 02/15/18 08:51 Dose: 100 mg Amlodipine Besylate (Norvasc) 5 mg PO DAILY [facility] Last Admin: 02/16/18 08:24 Dose: 5 mg Bacitracin (Bacitracin Oint) 1 gm TOP DAILY PRN PRN Reason: Rash Bisacodyl (Dulcolax) 10 mg RECTAL ONETIME ONE Stop: 12/21/17 04:02 Last Admin: 12/21/17 04:17 Dose: Not Given Bisacodyl (Dulcolax) Confirm Administered Dose 10 mg .ROUTE .STK-MED ONE Stop: 01/08/18 11:37 Last Admin: 01/08/18 16:15 Dose: Not Given Bupropion HCl (Wellbutrin Xl) 150 mg PO DAILY [facility] Last Admin: 02/16/18 08:22 Dose: 150 mg Calcium Carbonate/Glycine (Tums) 500 mg PO TID PRN PRN Reason: Indigestion Ciprofloxacin (Ciprofloxacin Hcl) 500 mg PO BID [facility] Stop: 12/24/17 21:01 Last Admin: 12/24/17 21:04 Dose: 500 mg Al Hydroxide/Mg Hydroxide 40 ml/ Diphenhydramine HCl 12.5 mg/ Lidocaine HCl 40 ml 0 ml PO TID PRN PRN Reason: mouth sores/burning Last Admin: 10/28/17 08:11 Dose: 10 ml Cranberry (Azo Cranberry) 1 each PO BEDTIME [facility] Last Admin: 11/07/17 21:46 Dose: Not Given Diclofenac Sodium (Voltaren 1% Gel) 1 gm TOP QID [facility] Last Admin: 01/26/18 08:10 Dose: Not Given Diclofenac Sodium (Voltaren 1% Gel) 1 gm TOP QID PRN PRN Reason: Pain Last Admin: 02/08/18 20:12 Dose: 1 applic Furosemide (Lasix) 20 mg PO DAILY [facility] Last Admin: 12/13/17 09:25 Dose: 20 mg Furosemide (Lasix) 20 mg PO SUTUTHSA@1700 [facility] Last Admin: 12/12/17 16:01 Dose: 20 mg Furosemide (Lasix) 20 mg PO SuTuThSa@1500 [facility] Last Admin: 02/13/18 14:52 Dose: 20 mg Furosemide (Lasix) 20 mg PO DAILY@0700 [facility] Last Admin: 02/15/18 06:44 Dose: 20 mg Heparin Sodium (Porcine) (Heparin Lock Flush 100 Units/Ml) 500 units FLUSH ASDIRECTED PRN PRN Reason: Other Cefepime HCl 1 gm/ Sodium (Chloride) 50 mls @ 100 mls/hr IV Q8H [facility] Last Admin: 11/01/17 18:52 Dose: Not Given Cefepime HCl 1 gm/ Sodium (Chloride) 50 mls @ 100 mls/hr IV Q24H [facility] Last Admin: 11/07/17 20:32 Dose: 100 mls/hr Sodium Chloride (Normal Saline) Confirm Administered Dose 50 mls @ as directed .ROUTE .[facility] ONE Stop: 11/02/17 22:10 Last Admin: 11/02/17 23:15 Dose: 100 mls/hr Sodium Chloride (Normal Saline) Confirm Administered Dose 50 mls @ as directed .ROUTE .[facility] ONE Stop: 11/03/17 21:46 Last Admin: 11/03/17 21:56 Dose: Not Given Sodium Chloride (Normal Saline) 50 mls @ 50 mls/hr IV ASDIRECTED [facility] Albumin Human (Flexbumin 25%) 100 mls @ 50 mls/hr IV ONETIME ONE Stop: 11/22/17 13:59 Last Admin: 11/22/17 13:07 Dose: 50 mls/hr Sodium Chloride (Normal Saline) 250 mls @ 125 mls/hr IV ASDIRECTED [facility] Stop: 11/22/17 21:00 Last Admin: 11/22/17 15:40 Dose: 125 mls/hr Ciprofloxacin/Dextrose (Cipro In D5w 400 Mg/200 Ml) 200 mls @ 200 mls/hr IV Q12H [facility] Last Admin: 11/26/17 06:13 Dose: 200 mls/hr Sodium Chloride (Normal Saline) Confirm Administered Dose 100 mls @ as directed .ROUTE .[facility] ONE Stop: 11/22/17 20:04 Last Admin: 11/22/17 20:05 Dose: 100 mls/hr Sodium Chloride (Normal Saline) 100 mls @ 200 mls/hr IV ASDIRECTED [facility] Sodium Chloride (Normal Saline) 100 mls @ 20 mls/hr IV DAILY@1900 [facility] Last Admin: 11/25/17 18:08 Dose: 20 mls/hr Insulin Aspart (Novolog) 0 unit SUBCUT WITHMEALSANDBED [facility]; Protocol Stop: 10/31/17 00:00 Last Admin: 10/30/17 21:02 Dose: 5 units Insulin Aspart (Novolog) 2 unit SUBCUT ONETIME ONE Stop: 10/31/17 20:59 Last Admin: 10/31/17 21:07 Dose: 2 units Insulin Aspart (Novolog) 10 unit SUBCUT ONETIME ONE Stop: 11/12/17 17:44 Last Admin: 11/12/17 18:06 Dose: 10 units Insulin Aspart (Novolog) 0 unit SUBCUT TIDMEALS [facility]; Protocol Last Admin: 12/21/17 17:16 Dose: Not Given Insulin Detemir (Levemir) 44 unit SUBCUT DAILY [facility] Last Admin: 10/30/17 10:10 Dose: Not Given Insulin Detemir (Levemir) 40 unit SUBCUT DAILY [facility] Last Admin: 11/14/17 08:22 Dose: 40 units Insulin Detemir (Levemir) 44 unit SUBCUT DAILY [facility] Last Admin: 11/29/17 11:32 Dose: Not Given Insulin Detemir (Levemir) 34 unit SUBCUT DAILY [facility] Last Admin: 12/02/17 10:11 Dose: Not Given Insulin Detemir (Levemir) 30 unit SUBCUT DAILY [facility] Last Admin: 12/20/17 08:02 Dose: 30 units Insulin Detemir (Levemir) 40 unit SUBCUT DAILY [facility] Last Admin: 02/09/18 08:17 Dose: 40 units Insulin Detemir (Levemir) 10 unit SUBCUT ONETIME ONE Stop: 12/20/17 13:01 Last Admin: 12/20/17 14:38 Dose: 10 units Insulin Detemir (Levemir) 42 unit SUBCUT DAILY [facility] Last Admin: 02/16/18 08:24 Dose: 42 unit Lidocaine/Epinephrine (Xylocaine 1% With Epinephrine 1:100,000) 3 ml INJECT ONETIME ONE Stop: 11/05/17 09:01 Last Admin: 11/05/17 09:00 Dose: 3 ml Loperamide HCl (Imodium) 2 mg PO ASDIRECTED PRN PRN Reason: Diarrhea Last Admin: 11/30/17 05:53 Dose: 2 mg Lorazepam (Ativan) 0.25 mg PO Q8H PRN PRN Reason: Anxiety Last Admin: 12/13/17 18:03 Dose: 0.25 mg Lorazepam (Ativan) 0.25 mg PO Q8H PRN PRN Reason: Anxiety Losartan Potassium (Cozaar) 25 mg PO DAILY [facility] Last Admin: 11/27/17 09:05 Dose: 25 mg Losartan Potassium (Cozaar) 50 mg PO DAILY [facility] Last Admin: 12/25/17 08:57 Dose: 50 mg Losartan Potassium (Cozaar) 75 mg PO DAILY [facility] Last Admin: 01/17/18 08:26 Dose: 75 mg Losartan Potassium (Cozaar) 100 mg PO DAILY [facility] Last Admin: 02/16/18 08:24 Dose: 100 mg Magnesium Hydroxide (Milk Of Magnesia) 30 ml PO DAILY PRN PRN Reason: Constipation Last Admin: 10/26/17 09:10 Dose: 30 ml Melatonin (Melatonin) 6 mg PO BEDTIME [facility] Metoprolol Tartrate (Lopressor) 50 mg PO BID [facility] Last Admin: 02/15/18 08:51 Dose: 50 mg Multivitamins/Minerals (Centrum) 1 tab PO DAILY [facility] Last Admin: 12/20/17 08:03 Dose: 1 tab Multivitamins/Minerals (Centrum) 1 tab PO DAILY@1200 [facility] Last Admin: 12/27/17 11:36 Dose: 1 tab Mupirocin (Bactroban Crm) 1 gm TOP TID [facility] Last Admin: 10/29/17 11:29 Dose: Not Given Mupirocin (Bactroban Oint) 0 gm TOP DAILY [facility] Last Admin: 12/06/17 10:12 Dose: 1 applic Naloxegol (Movantik) 25 mg PO DAILY [facility] Last Admin: 02/16/18 08:22 Dose: 25 mg Insulin Degludec ( (Tresiba) 44units) 44 units SUBCUT DAILY [facility] Nystatin (Nystop) 0 gm TOP BID [facility] Last Admin: 10/25/17 08:58 Dose: 1 applic Nystatin (Nystop) 0 gm TOP TID [facility] Last Admin: 10/26/17 11:15 Dose: Not Given Nystatin (Nystatin Ointment) 0 gm TOP TID [facility] Last Admin: 11/04/17 15:49 Dose: Not Given Nystatin (Nystatin Ointment) 1 gm TOP DAILY PRN PRN Reason: Rash Last Admin: 12/26/17 08:19 Dose: 1 applic Nystatin (Nystatin Ointment) 1 gm TOP BID [facility] Last Admin: 01/01/18 09:12 Dose: Not Given Nystatin (Nystatin Ointment) 1 gm TOP BID PRN PRN Reason: Rash Nystatin (Nystatin Ointment) 0 gm TOP BID PRN PRN Reason: Rash Olanzapine (Zyprexa) 10 mg PO ASDIRECTED [facility] Olanzapine (Zyprexa) 10 mg PO BEDTIME [facility] Stop: 11/14/17 21:01 Last Admin: 11/14/17 21:28 Dose: 10 mg Olanzapine (Zyprexa) 10 mg PO BEDTIME [facility] Stop: 11/22/17 21:01 Last Admin: 11/22/17 21:41 Dose: 10 mg Omeprazole (Omeprazole) 20 mg PO SUTUTHSA@2100 [facility] Last Admin: 10/23/17 21:24 Dose: 20 mg Omeprazole (Omeprazole) 20 mg PO DAILY@2100 [facility] Last Admin: 12/11/17 20:18 Dose: 20 mg Omeprazole (Omeprazole) 20 mg PO BID [facility] Last Admin: 12/13/17 09:27 Dose: 20 mg Omeprazole (Omeprazole) 20 mg PO BIDAC [facility] Last Admin: 12/17/17 16:45 Dose: 20 mg Omeprazole (Omeprazole) 20 mg PO DAILY@0600,1700 [facility] Last Admin: 01/20/18 06:27 Dose: 20 mg Omeprazole (Omeprazole) 20 mg PO BID@0600,1700 [facility] Last Admin: 02/15/18 06:44 Dose: 20 mg Ondansetron HCl (Zofran Odt) 8 mg PO TID PRN PRN Reason: nausea or vomitting Last Admin: 01/26/18 17:53 Dose: 8 mg Oxycodone HCl (Oxycodone) 5 mg PO Q6H [facility] Last Admin: 10/23/17 06:11 Dose: 5 mg Oxycodone HCl (Oxycodone) 5 mg PO Q6H [facility] Last Admin: 10/24/17 06:21 Dose: Not Given Oxycodone HCl (Oxycodone) 5 mg PO Q6H PRN PRN Reason: Pain Last Admin: 02/14/18 13:38 Dose: 5 mg Oxycodone HCl (Oxycodone) 5 mg PO BEDTIME [facility] Last Admin: 12/07/17 20:02 Dose: 5 mg Oxycodone HCl (Oxycodone) 5 mg PO ONETIME ONE Stop: 11/23/17 18:12 Last Admin: 11/23/17 18:48 Dose: 5 mg Oxycodone HCl (Oxycodone) 7.5 mg PO BEDTIME [facility] Stop: 12/13/17 23:00 Last Admin: 12/13/17 20:05 Dose: 7.5 mg Oxycodone HCl (Oxycodone) 5 mg PO ONETIME ONE Stop: 12/13/17 17:59 Last Admin: 12/13/17 18:21 Dose: 5 mg Oxycodone HCl (Oxycontin) 10 mg PO Q12H [facility] Last Admin: 02/16/18 08:22 Dose: 10 mg Oxycodone HCl (Oxycontin) Confirm Administered Dose 10 mg .ROUTE .STK-MED ONE Stop: 12/31/17 11:25 Last Admin: 12/31/17 11:26 Dose: 10 mg Polysaccharide Iron Complex (Ferrex 150) 150 mg PO DAILY [facility] Last Admin: 12/20/17 08:05 Dose: 150 mg Polysaccharide Iron Complex (Ferrex 150) 150 mg PO DAILY@1200 [facility] Last Admin: 12/27/17 11:36 Dose: 150 mg Polysaccharide Iron Complex (Ferrex 150) 150 mg PO DAILY [facility] Last Admin: 02/09/18 08:17 Dose: 150 mg Polysaccharide Iron Complex (Ferrex 150) 150 mg PO Q48H [facility] Last Admin: 02/09/18 11:46 Dose: Not Given Prochlorperazine Maleate (Compazine) 10 mg PO QID PRN PRN Reason: Nausea Prochlorperazine Maleate (Compazine) 10 mg PO QID PRN PRN Reason: Nausea Last Admin: 01/16/18 20:25 Dose: 10 mg Ramelteon (Rozerem) 8 mg PO BEDTIME [facility] Last Admin: 02/16/18 22:33 Dose: 8 mg Senna/Docusate Sodium (Senna Plus) 1 tab PO BID PRN PRN Reason: Constipation Last Admin: 10/28/17 08:08 Dose: 1 tab Senna/Docusate Sodium (Senna Plus) 1 tab PO BID [facility] Last Admin: 11/04/17 15:49 Dose: Not Given Senna/Docusate Sodium (Senna Plus) 1 - 2 tab PO DAILY PRN PRN Reason: Constipation Sertraline HCl (Zoloft) 100 mg PO BEDTIME [facility] Last Admin: 01/07/18 20:58 Dose: 100 mg Sertraline HCl (Zoloft) 150 mg PO BEDTIME [facility] Last Admin: 02/14/18 20:02 Dose: 150 mg Simvastatin (Zocor) 40 mg PO BEDTIME [facility] Last Admin: 02/14/18 20:03 Dose: 40 mg Sodium Chloride (Chaplin Nasal [place]) 1 ml ALDO QID PRN PRN Reason: Dryness Last Admin: 11/12/17 21:03 Dose: 1 spray Sodium Chloride (Normal Saline) 20 ml FLUSH ASDIRECTED PRN PRN Reason: Other Sodium Chloride (Saline Flush) 20 ml FLUSH Q8H [facility] Last Admin: 11/02/17 10:46 Dose: Not Given Sodium Chloride (Saline Flush) 20 ml FLUSH Q8H [facility] Last Admin: 11/11/17 12:20 Dose: Not Given Zinc Gluconate (Zinc) 50 mg PO DAILY [facility] Last Admin: 12/20/17 08:05 Dose: 50 mg Zinc Gluconate (Zinc) 50 mg PO DAILY@1200 [facility] Last Admin: 12/27/17 11:35 Dose: 50 mg - Exam Quality Assessment: Skin Breakdown (Coccyx wound shrinking and healing however 2 cm tunneling). No: Supplemental Oxygen General: Alert, Oriented Neck: Supple Lungs: Clear to Auscultation, Normal Respiratory Effort Cardiovascular: Regular Rate, Regular Rhythm GI/Abdominal Exam: Soft, Non-Tender, Other (Pleurx catheter nonfunctional right sided abdominal) (Female) Exam: Deferred Back Exam: No: CVA Tenderness (L), CVA Tenderness (R) Extremities: No Pedal Edema, Other (Edema left lower extremity non-pedal 1+. Left shoulder limited abduction to approximately 45) Peripheral Pulses: 2+: Radial (L), Radial (R) Wound/Incisions: Dressing Dry and Intact, No Drainage, Other (Pleurx catheter intact right sided upper abdominal cavity) Neurological: Normal Tone, Sensation Intact Psy/Mental Status: Alert, Normal Affect, Anxious - Problem List Review Problem List Initiated/Reviewed/Updated: Yes - My Orders Last 24 Hours: My Active Orders 02/17/18 09:00 Patient's Own Medication [Ptom] 42 each SUBCUT DAILY 02/17/18 21:00 Patient's Own Medication [Ptom] 1 each PO BEDTIME 02/18/18 08:27 ALPRAZolam [Xanax] 0.25 mg PO Q8H PRN - Plan Plan:: HPI: This is a 76 year old female who had previously been in swing bed status due to a left humeral fracture and deconditioning. The patient has been recently diagnosed with peritoneal carcinomatosis. The patient was sent up to [facility] on 10/20/17 for abdominal paracentesis and pleurx catheter placement. She had labs done that day which showed a hemoglobin of 6.5. She was then admitted to their hospitalist services. She was given 2 units of PRBCs. She was due for her second cycle of carboplatin and taxol while there and this was completed on 10/21/17. She was also given Neulasta prior to discharge. The patient was admitted back to swing bed status for rehabilitation of her fracture and deconditioning. PRIMARY ASSESSMENT/PLAN: Left humeral head fracture. Patient with periodic pain. We will set patient up to see orthopedic surgeon Dr. Singer [facility]. No change in position after recent fall. Xray report notes unchanged since 11/12/17. Continue with ROM and strengthening. 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 Some interval healing since removal. Has had 2 cm tracking superiorly however overall wound is shrinking. Physical therapy performing packing. Deconditioning. Continue physical therapy Immunocompromised host. Malignant ascites. PleurX catheter clogged. Approximately 2 weeks ago I surgically clipped tubing and reapplied catheter tip. However no longer draining. Attempted to remove today unsuccessful. Anemia due to antineoplastic chemotherapy. Hgb stable at 12.3. Recent Unwitnessed fall. Patient found on floor this morning by [employer] and was laying on her left side. Patient initially complained of left sided head, shoulder, and hip pain. Head CT negative for acute intracranial processes. Xray report of left hip notes no fracture or dislocation. Xray report of left humerus notes no change since 11/12/17. Anxiety, situational, we'll add Xanax when necessary 0.25 mg due to upcoming wedding. SECONDARY ASSESSMENT/PLAN: Primary peritoneal carcinomatosis. Followed by Dr. Collier/oncology with ongoing Pleurx abdominal drain. History of endometrial cancer, s/p hysterceomty 2009. CAD, no ischemic picture, stable. HTN. Continue lopressor and losartan and Norvasc 5 mg Aortic stenosis. History of atrial flutter. Type 2 DM. Not optimal fastings. Accuchecks daily. Tresiba switched to levemir daily due to not being available in house. Increase to 42 units CKD stage 3. Hyperlipidemia. Continue simvastatin. Obesity. Gout. Continue allopurinol 100 mg daily. Diabetic retinopathy. Depression. Continue zoloft. GERD. Continue omeprazole. OAB. Osteoarthritis. History of hypercalcemia. Recent Hypoalbuminemia. DVT prophylaxis. Score of 6, Continue with phan stockings. Overall plan: Continue an SNF with PT . To be progressing well, continue with physical therapy in wound care and packing. Eventually be transferring to residential facility.
[2018-02-18] MEDS: amLODIPine 5 MG Tab PO SCH (09:06)
[2018-02-18] MEDS: Losartan 100 MG Tab PO SCH (09:06)
[2018-02-18] MEDS: buPROPion 150 MG Tab.ER PO SCH (09:06)
[2018-02-18] MEDS: Insulin Detemir 100 Units/ML 3 ML Pen SUBCUT SCH (09:17)
[2018-02-18] MEDS: oxyCODONE ER 10 MG TAB.ER PO SCH ×2 (09:18→21:52)
[2018-02-18] MEDS: Polyethylene Glycol 3350 Powder 17 GM Packet PO PRN (13:48)
[2018-02-18] MEDS: Aspirin 81 MG Tab.EC PO SCH (21:51)
[2018-02-18] MEDS: Simvastatin 20 MG Tab PO SCH (21:52)
[2018-02-18] MEDS: Sertraline 100 MG Tab PO SCH (21:53)
[2018-02-18] MEDS: ROZEREM 8 MG PO SCH (21:53)
[2018-02-19] MEDS: Furosemide 20 MG Tab PO SCH ×2 (06:27→15:16)
[2018-02-19] MEDS: Omeprazole 20 MG Cap.CR PO SCH ×2 (06:27→17:25)
[2018-02-19] MEDS: Acetaminophen 500 MG Tab PO SCH ×3 (06:27→23:00)
[2018-02-19] MEDS: Insulin Detemir 100 Units/ML 3 ML Pen SUBCUT SCH (08:53)
[2018-02-19] MEDS: oxyCODONE ER 10 MG TAB.ER PO SCH ×2 (08:54→21:10)
[2018-02-19] MEDS: Zinc (Zinc Gluconate) 50 MG Tab PO SCH (08:55)
[2018-02-19] MEDS: Iron Polysaccharides Complex 150 MG Cap PO SCH (08:55)
[2018-02-19] MEDS: Multivitamins with Minerals/Iron/Folic Acid/Lycopene Tab PO SCH (08:55)
[2018-02-19] MEDS: Docusate Sodium 100 MG Cap PO SCH (08:55)
[2018-02-19] MEDS: Naloxegol Oxalate 25 MG Tab PO SCH (08:55)
[2018-02-19] MEDS: Allopurinol 100 MG Tab PO SCH (08:56)
[2018-02-19] MEDS: buPROPion 150 MG Tab.ER PO SCH (08:56)
[2018-02-19] MEDS: Losartan 100 MG Tab PO SCH (08:57)
[2018-02-19] MEDS: Metoprolol Tartrate 100 MG Tab PO SCH ×2 (08:58→21:14)
[2018-02-19] MEDS: amLODIPine 5 MG Tab PO SCH (08:58)
[2018-02-19] MEDS: Aspirin 81 MG Tab.EC PO SCH (21:10)
[2018-02-19] MEDS: ROZEREM 8 MG PO SCH (21:13)
[2018-02-19] MEDS: Sertraline 100 MG Tab PO SCH (21:13)
[2018-02-19] MEDS: Simvastatin 20 MG Tab PO SCH (21:16)
[2018-02-20] MEDS: Acetaminophen 500 MG Tab PO SCH ×3 (06:24→22:50)
[2018-02-20] MEDS: Omeprazole 20 MG Cap.CR PO SCH ×2 (06:24→17:08)
[2018-02-20] MEDS: Furosemide 20 MG Tab PO SCH ×2 (06:25→15:02)
[2018-02-20] MEDS: Insulin Detemir 100 Units/ML 3 ML Pen SUBCUT SCH (09:11)
[2018-02-20] MEDS: oxyCODONE ER 10 MG TAB.ER PO SCH ×2 (09:11→20:41)
[2018-02-20] MEDS: Docusate Sodium 100 MG Cap PO SCH (09:12)
[2018-02-20] MEDS: Zinc (Zinc Gluconate) 50 MG Tab PO SCH (09:12)
[2018-02-20] MEDS: Multivitamins with Minerals/Iron/Folic Acid/Lycopene Tab PO SCH (09:12)
[2018-02-20] MEDS: Allopurinol 100 MG Tab PO SCH (09:12)
[2018-02-20] MEDS: amLODIPine 5 MG Tab PO SCH (09:13)
[2018-02-20] MEDS: buPROPion 150 MG Tab.ER PO SCH (09:13)
[2018-02-20] MEDS: Naloxegol Oxalate 25 MG Tab PO SCH (09:13)
[2018-02-20] MEDS: Losartan 100 MG Tab PO SCH (09:13)
[2018-02-20] MEDS: Metoprolol Tartrate 100 MG Tab PO SCH ×2 (09:14→20:42)
[2018-02-20] MEDS: Aspirin 81 MG Tab.EC PO SCH (20:34)
[2018-02-20] MEDS: Sertraline 100 MG Tab PO SCH (20:35)
[2018-02-20] MEDS: Simvastatin 20 MG Tab PO SCH (20:36)
[2018-02-20] MEDS: ROZEREM 8 MG PO SCH (20:36)
[2018-02-21] MEDS: Omeprazole 20 MG Cap.CR PO SCH ×2 (06:13→17:08)
[2018-02-21] MEDS: Acetaminophen 500 MG Tab PO SCH ×3 (07:05→23:45)
[2018-02-21] MEDS: Furosemide 20 MG Tab PO SCH (07:06)
[2018-02-21] MEDS: Insulin Detemir 100 Units/ML 3 ML Pen SUBCUT SCH (08:02)
[2018-02-21] MEDS: oxyCODONE ER 10 MG TAB.ER PO SCH ×2 (08:04→20:27)
[2018-02-21] MEDS: Allopurinol 100 MG Tab PO SCH (08:06)
[2018-02-21] MEDS: amLODIPine 5 MG Tab PO SCH (08:06)
[2018-02-21] MEDS: buPROPion 150 MG Tab.ER PO SCH (08:07)
[2018-02-21] MEDS: Multivitamins with Minerals/Iron/Folic Acid/Lycopene Tab PO SCH (08:07)
[2018-02-21] MEDS: Zinc (Zinc Gluconate) 50 MG Tab PO SCH (08:07)
[2018-02-21] MEDS: Docusate Sodium 100 MG Cap PO SCH (08:08)
[2018-02-21] MEDS: Losartan 100 MG Tab PO SCH (08:08)
[2018-02-21] MEDS: Iron Polysaccharides Complex 150 MG Cap PO SCH (08:08)
[2018-02-21] MEDS: Naloxegol Oxalate 25 MG Tab PO SCH (08:09)
[2018-02-21] MEDS: Metoprolol Tartrate 100 MG Tab PO SCH ×2 (08:11→20:28)
[2018-02-21] MEDS ORDERED: ALPRAZolam 0.25 MG Tab PO PRN (16:45)
[2018-02-21] MEDS: Aspirin 81 MG Tab.EC PO SCH (20:27)
[2018-02-21] MEDS: ROZEREM 8 MG PO SCH (20:28)
[2018-02-21] MEDS: Simvastatin 20 MG Tab PO SCH (20:29)
[2018-02-21] MEDS: Sertraline 100 MG Tab PO SCH (20:29)
[2018-02-22] MEDS: Omeprazole 20 MG Cap.CR PO SCH ×2 (05:57→17:08)
[2018-02-22] MEDS: Furosemide 20 MG Tab PO SCH ×3 (05:58→14:14)
[2018-02-22] MEDS: Acetaminophen 500 MG Tab PO SCH ×4 (05:58→22:12)
[2018-02-22] MEDS: Docusate Sodium 100 MG Cap PO SCH (08:33)
[2018-02-22] MEDS: Zinc (Zinc Gluconate) 50 MG Tab PO SCH (08:33)
[2018-02-22] MEDS: Multivitamins with Minerals/Iron/Folic Acid/Lycopene Tab PO SCH (08:33)
[2018-02-22] MEDS: oxyCODONE ER 10 MG TAB.ER PO SCH ×2 (08:34→20:20)
[2018-02-22] MEDS: Allopurinol 100 MG Tab PO SCH (08:34)
[2018-02-22] MEDS: amLODIPine 5 MG Tab PO SCH (08:34)
[2018-02-22] MEDS: Metoprolol Tartrate 100 MG Tab PO SCH ×2 (08:35→20:23)
[2018-02-22] MEDS: buPROPion 150 MG Tab.ER PO SCH (08:35)
[2018-02-22] MEDS: Losartan 100 MG Tab PO SCH (08:35)
[2018-02-22] MEDS: Insulin Detemir 100 Units/ML 3 ML Pen SUBCUT SCH (08:36)
[2018-02-22] MEDS: Naloxegol Oxalate 25 MG Tab PO SCH (08:37)
[2018-02-22] MEDS: Polyethylene Glycol 3350 Powder 17 GM Packet PO PRN ×2 (12:15→20:19)
[2018-02-22] MEDS: Aspirin 81 MG Tab.EC PO SCH (20:20)
[2018-02-22] MEDS: ROZEREM 8 MG PO SCH (20:22)
[2018-02-22] MEDS: Sertraline 100 MG Tab PO SCH (20:22)
[2018-02-22] MEDS: Simvastatin 20 MG Tab PO SCH (20:22)
[2018-02-23] MEDS: Acetaminophen 500 MG Tab PO SCH ×3 (06:22→22:00)
[2018-02-23] MEDS: Furosemide 20 MG Tab PO SCH (06:23)
[2018-02-23] MEDS: Omeprazole 20 MG Cap.CR PO SCH ×2 (06:23→16:38)
[2018-02-23] MEDS: oxyCODONE ER 10 MG TAB.ER PO SCH ×2 (08:36→22:00)
[2018-02-23] MEDS: Insulin Detemir 100 Units/ML 3 ML Pen SUBCUT SCH (08:37)
[2018-02-23] MEDS: Metoprolol Tartrate 100 MG Tab PO SCH ×2 (08:37→22:00)
[2018-02-23] MEDS: Losartan 100 MG Tab PO SCH (08:38)
[2018-02-23] MEDS: buPROPion 150 MG Tab.ER PO SCH (08:38)
[2018-02-23] MEDS: Naloxegol Oxalate 25 MG Tab PO SCH (08:38)
[2018-02-23] MEDS: Allopurinol 100 MG Tab PO SCH (08:38)
[2018-02-23] MEDS: amLODIPine 5 MG Tab PO SCH (08:39)
[2018-02-23] MEDS: Docusate Sodium 100 MG Cap PO SCH (08:39)
[2018-02-23] MEDS: Multivitamins with Minerals/Iron/Folic Acid/Lycopene Tab PO SCH (08:39)
[2018-02-23] MEDS: Iron Polysaccharides Complex 150 MG Cap PO SCH (08:39)
[2018-02-23] MEDS: Zinc (Zinc Gluconate) 50 MG Tab PO SCH (08:39)
[2018-02-23] MEDS: Aspirin 81 MG Tab.EC PO SCH (21:58)
[2018-02-23] MEDS: Simvastatin 20 MG Tab PO SCH (21:58)
[2018-02-23] MEDS: ROZEREM 8 MG PO SCH (21:59)
[2018-02-23] MEDS: Sertraline 100 MG Tab PO SCH (21:59)
[2018-02-24] MEDS: Omeprazole 20 MG Cap.CR PO SCH ×2 (05:42→18:12)
[2018-02-24] MEDS: Acetaminophen 500 MG Tab PO SCH ×3 (06:22→23:50)
[2018-02-24] MEDS: Furosemide 20 MG Tab PO SCH ×2 (06:23→15:03)
[2018-02-24] MEDS: Insulin Detemir 100 Units/ML 3 ML Pen SUBCUT SCH (08:36)
[2018-02-24] MEDS: Losartan 100 MG Tab PO SCH (08:38)
[2018-02-24] MEDS: buPROPion 150 MG Tab.ER PO SCH (08:38)
[2018-02-24] MEDS: Naloxegol Oxalate 25 MG Tab PO SCH (08:39)
[2018-02-24] MEDS: amLODIPine 5 MG Tab PO SCH (08:39)
[2018-02-24] MEDS: Zinc (Zinc Gluconate) 50 MG Tab PO SCH (08:40)
[2018-02-24] MEDS: Multivitamins with Minerals/Iron/Folic Acid/Lycopene Tab PO SCH (08:40)
[2018-02-24] MEDS: Allopurinol 100 MG Tab PO SCH (08:40)
[2018-02-24] MEDS: Docusate Sodium 100 MG Cap PO SCH (08:40)
[2018-02-24] MEDS: Metoprolol Tartrate 100 MG Tab PO SCH ×2 (08:48→21:03)
[2018-02-24] MEDS: oxyCODONE ER 10 MG TAB.ER PO SCH ×2 (08:49→20:58)
[2018-02-24] MEDS: ROZEREM 8 MG PO SCH (20:59)
[2018-02-24] MEDS: Simvastatin 20 MG Tab PO SCH (21:00)
[2018-02-24] MEDS: Sertraline 100 MG Tab PO SCH (21:01)
[2018-02-24] MEDS: Aspirin 81 MG Tab.EC PO SCH (21:06)
[2018-02-25] MEDS: Omeprazole 20 MG Cap.CR PO SCH ×2 (05:29→17:17)
[2018-02-25] MEDS: Acetaminophen 500 MG Tab PO SCH ×3 (06:33→22:12)
[2018-02-25] MEDS: Furosemide 20 MG Tab PO SCH (06:33)
[2018-02-25] MEDS: Multivitamins with Minerals/Iron/Folic Acid/Lycopene Tab PO SCH (08:05)
[2018-02-25] MEDS: Iron Polysaccharides Complex 150 MG Cap PO SCH (08:05)
[2018-02-25] MEDS: Docusate Sodium 100 MG Cap PO SCH (08:05)
[2018-02-25] MEDS: buPROPion 150 MG Tab.ER PO SCH (08:08)
[2018-02-25] MEDS: amLODIPine 5 MG Tab PO SCH (08:08)
[2018-02-25] MEDS: Losartan 100 MG Tab PO SCH (08:08)
[2018-02-25] MEDS: Metoprolol Tartrate 100 MG Tab PO SCH ×2 (08:08→20:00)
[2018-02-25] MEDS: Allopurinol 100 MG Tab PO SCH (08:08)
[2018-02-25] MEDS: Naloxegol Oxalate 25 MG Tab PO SCH (08:08)
[2018-02-25] MEDS: Zinc (Zinc Gluconate) 50 MG Tab PO SCH (08:08)
[2018-02-25] MEDS: Insulin Detemir 100 Units/ML 3 ML Pen SUBCUT SCH (08:10)
[2018-02-25] MEDS: oxyCODONE ER 10 MG TAB.ER PO SCH ×2 (08:15→19:59)
[2018-02-25] MEDS: Sertraline 100 MG Tab PO SCH (19:59)
[2018-02-25] MEDS: ROZEREM 8 MG PO SCH (19:59)
[2018-02-25] MEDS: Aspirin 81 MG Tab.EC PO SCH (19:59)
[2018-02-25] MEDS: Simvastatin 20 MG Tab PO SCH (19:59)
[2018-02-26] MEDS: Acetaminophen 500 MG Tab PO SCH ×3 (06:04→22:28)
[2018-02-26] MEDS: Furosemide 20 MG Tab PO SCH ×2 (06:05→15:36)
[2018-02-26] MEDS: Omeprazole 20 MG Cap.CR PO SCH ×2 (06:05→17:34)
[2018-02-26] MEDS: Insulin Detemir 100 Units/ML 3 ML Pen SUBCUT SCH (08:46)
[2018-02-26] MEDS: Multivitamins with Minerals/Iron/Folic Acid/Lycopene Tab PO SCH (08:49)
[2018-02-26] MEDS: Docusate Sodium 100 MG Cap PO SCH (08:49)
[2018-02-26] MEDS: Allopurinol 100 MG Tab PO SCH (08:50)
[2018-02-26] MEDS: amLODIPine 5 MG Tab PO SCH (08:50)
[2018-02-26] MEDS: Naloxegol Oxalate 25 MG Tab PO SCH (08:51)
[2018-02-26] MEDS: buPROPion 150 MG Tab.ER PO SCH (08:51)
[2018-02-26] MEDS: Losartan 100 MG Tab PO SCH (08:51)
[2018-02-26] MEDS: Zinc (Zinc Gluconate) 50 MG Tab PO SCH (08:52)
[2018-02-26] MEDS: oxyCODONE ER 10 MG TAB.ER PO SCH ×2 (08:52→21:40)
[2018-02-26] MEDS: Metoprolol Tartrate 100 MG Tab PO SCH ×2 (08:53→21:39)
[2018-02-26] MEDS: oxyCODONE 5 MG Tab PO PRN (14:06)
[2018-02-26] MEDS: Aspirin 81 MG Tab.EC PO SCH (21:38)
[2018-02-26] MEDS: Simvastatin 20 MG Tab PO SCH (21:40)
[2018-02-26] MEDS: Sertraline 100 MG Tab PO SCH (21:41)
[2018-02-26] MEDS: ROZEREM 8 MG PO SCH (21:41)
[2018-02-27] MEDS: Acetaminophen 500 MG Tab PO SCH ×3 (06:11→22:23)
[2018-02-27] MEDS: Furosemide 20 MG Tab PO SCH ×2 (06:12→17:12)
[2018-02-27] MEDS: Omeprazole 20 MG Cap.CR PO SCH ×2 (06:12→17:12)
[2018-02-27] MEDS: Iron Polysaccharides Complex 150 MG Cap PO SCH (08:31)
[2018-02-27] MEDS: Multivitamins with Minerals/Iron/Folic Acid/Lycopene Tab PO SCH (08:31)
[2018-02-27] MEDS: Docusate Sodium 100 MG Cap PO SCH (08:31)
[2018-02-27] MEDS: Zinc (Zinc Gluconate) 50 MG Tab PO SCH (08:35)
[2018-02-27] MEDS: Insulin Detemir 100 Units/ML 3 ML Pen SUBCUT SCH (08:37)
[2018-02-27] MEDS: buPROPion 150 MG Tab.ER PO SCH (08:37)
[2018-02-27] MEDS: Allopurinol 100 MG Tab PO SCH (08:37)
[2018-02-27] MEDS: amLODIPine 5 MG Tab PO SCH (08:37)
[2018-02-27] MEDS: oxyCODONE ER 10 MG TAB.ER PO SCH ×2 (08:37→20:34)
[2018-02-27] MEDS: Naloxegol Oxalate 25 MG Tab PO SCH (08:38)
[2018-02-27] MEDS: Metoprolol Tartrate 100 MG Tab PO SCH ×2 (08:38→20:36)
[2018-02-27] MEDS: Losartan 100 MG Tab PO SCH (08:38)
--- NOTE | 2018-02-27 12:11 | PCM.PN ---
- General Info Date of Service: 02/27/18 Functional Status: Reports: Pain Controlled, Tolerating Diet, Ambulating, Urinating. Denies: New Symptoms - Review of Systems General: Denies: Fever Pulmonary: Reports: No Symptoms Cardiovascular: Reports: Edema (Mild edema lower extremities right greater than left) Gastrointestinal: Denies: Abdominal Pain, Diarrhea, Nausea Genitourinary: Reports: Incontinence Musculoskeletal: Reports: Shoulder Pain (Left shoulder pain upon movement) Neurological: Reports: Difficulty Walking, Gait Disturbance. Denies: Confusion , Weakness Psychiatric: Denies: Confusion, Depression - Patient Data Vitals - Most Recent: Last Vital Signs Temp 98.1 F 02/27/18 06:14 Pulse 63 02/27/18 06:14 Resp 12 02/27/18 06:14 BP 149/57 H 02/27/18 06:14 Pulse Ox 93 L 02/27/18 06:14 Weight - Most Recent: 196 lb 6 oz I&O - Last 24 Hours: Intake & Output 02/26/18 02/27/18 02/27/18 22:59 06:59 14:59 Intake Total 75 Balance 75 Lab Results Last 24 Hours: Laboratory Results - last 24 hr 02/27/18 Range/Units 06:09 POC Glucose 178 H (74-106) mg/dl Med Orders - Current: Current Medications Acetaminophen (Tylenol Extra Strength) 1,000 mg PO Q8H [facility] Last Admin: 02/27/18 06:11 Dose: 1,000 mg Al Hydroxide/Mg Hydroxide (Mag-Al Susp) 30 ml PO Q6H PRN PRN Reason: Heartburn Last Admin: 01/18/18 12:18 Dose: 30 ml Aspirin (Halfprin) 81 mg PO BEDTIME [facility] Last Admin: 02/26/18 21:38 Dose: 81 mg Bisacodyl (Dulcolax) 10 mg RECTAL DAILY PRN PRN Reason: Constipation Last Admin: 01/08/18 11:45 Dose: 10 mg Docusate Sodium (Colace) 100 mg PO DAILY [facility] Last Admin: 02/27/18 08:31 Dose: 100 mg Multivitamins/Minerals (Centrum) 1 tab PO DAILY [facility] Last Admin: 02/27/18 08:31 Dose: 1 tab Allopurinol 100 Mg (Tab) 1 each PO DAILY [facility] Last Admin: 02/27/18 08:37 Dose: 1 each Metoprolol Tartrate (100 Mg Tab) 0.5 each PO BID [facility] Last Admin: 02/27/18 08:38 Dose: 0.5 each Simvastatin 20 Mg (Tab) 1 each PO BEDTIME [facility] Last Admin: 02/26/18 21:40 Dose: 1 each Prochlorperazine 10 (Mg Tab) 1 each PO QID PRN PRN Reason: Nausea Furosemide 20 Mg Tab 1 each PO SuTuThSa@1500 [facility] Last Admin: 02/26/18 15:36 Dose: Not Given Furosemide 20 Mg Tab 1 each PO DAILY@0700 [facility] Last Admin: 02/27/18 06:12 Dose: 1 each Sertraline 100 Mg (Tab) 1.5 each PO BEDTIME [facility] Last Admin: 02/26/18 21:41 Dose: 1.5 each Omeprazole 20 Mg Cap (.Cr) 1 each PO BID@0600,1700 [facility] Last Admin: 02/27/18 06:12 Dose: 1 each Ondansetron 4 Mg Tab 2 each PO TID PRN PRN Reason: nausea or vomitting Last Admin: 02/16/18 09:46 Dose: 2 each Naloxegol Oxalate 25 (Mg Tab) 1 each PO DAILY [facility] Last Admin: 02/27/18 08:38 Dose: 1 each Bupropion 150 Mg Tab (.Er) 1 each PO DAILY [facility] Last Admin: 02/27/18 08:37 Dose: 1 each Losartan 100 Mg Tab 1 each PO DAILY [facility] Last Admin: 02/27/18 08:38 Dose: 1 each Amlodipine 5 Mg Tab 5 each PO DAILY [facility] Last Admin: 02/27/18 08:37 Dose: 5 each Oxycodone Er 10 Mg (Tab.Er) 1 each PO Q12H [facility] Last Admin: 02/27/18 08:37 Dose: 1 each Oxycodone 5 Mg Tab 5 each PO Q6H PRN PRN Reason: Pain Last Admin: 02/26/18 14:06 Dose: 5 each Insulin Detemir 100 (Units/Ml 3 Ml Pen) 42 each SUBCUT DAILY [facility] Last Admin: 02/27/18 08:37 Dose: 42 each Diclofenac Sodium 1% (Gel 100 Gm Tube) 1 each TOP QID PRN PRN Reason: Pain Last Admin: 02/16/18 17:37 Dose: 1 each Rozerem 8mg Tablet 1 each PO BEDTIME [facility] Last Admin: 02/26/18 21:41 Dose: 1 each Alprazolam 0.25 Mg (Tab) 1 each PO Q8H PRN PRN Reason: Anxiety Polyethylene Glycol (Miralax) 17 gm PO DAILY PRN PRN Reason: Constipation Last Admin: 02/22/18 20:19 Dose: 17 gm Polysaccharide Iron Complex (Ferrex 150) 150 mg PO Q48H [facility] Last Admin: 02/27/18 08:31 Dose: 150 mg Promethazine HCl (Phenergan) 25 mg IM Q6H PRN PRN Reason: Nausea Last Admin: 01/02/18 18:21 Dose: 25 mg Senna/Docusate Sodium (Senna Plus) 1 tab PO BEDTIME [facility] Last Admin: 02/26/18 21:40 Dose: 1 tab Simethicone (Simethicone) 80 mg PO Q6H PRN PRN Reason: Heartburn Last Admin: 01/18/18 06:13 Dose: 80 mg Zinc Gluconate (Zinc) 50 mg PO DAILY [facility] Last Admin: 02/27/18 08:35 Dose: 50 mg Discontinued Medications Acetaminophen (Tylenol Extra Strength) 1,000 mg PO Q8H [facility] Last Admin: 10/23/17 02:00 Dose: 1,000 mg Acetaminophen (Tylenol Extra Strength) 1,000 mg PO Q8H [facility] Last Admin: 11/22/17 15:12 Dose: 1,000 mg Acetaminophen (Tylenol) Confirm Administered Dose 975 mg .ROUTE .STK-MED ONE Stop: 11/08/17 07:36 Last Admin: 11/08/17 08:28 Dose: 975 mg Hydrocodone Bitart/Acetaminophen ([place] 325-5 Mg) 1 - 2 tab PO Q4H PRN PRN Reason: Moderate Pain Last Admin: 10/24/17 19:26 Dose: 1 tab Al Hydroxide/Mg Hydroxide (Mag-Al Susp) Confirm Administered Dose 30 ml .ROUTE .STK-MED ONE Stop: 01/09/18 21:49 Last Admin: 01/09/18 22:00 Dose: 30 ml Al Hydroxide/Mg Hydroxide (Mag-Al Susp) 30 ml PO Q6H PRN PRN Reason: Heartburn Last Admin: 01/09/18 22:00 Dose: 30 ml Allopurinol (Zyloprim) 100 mg PO DAILY [facility] Last Admin: 02/15/18 08:51 Dose: 100 mg Alprazolam (Xanax) 0.25 mg PO Q8H PRN PRN Reason: Anxiety Last Admin: 02/19/18 02:06 Dose: 0.25 mg Amlodipine Besylate (Norvasc) 5 mg PO DAILY [facility] Last Admin: 02/16/18 08:24 Dose: 5 mg Bacitracin (Bacitracin Oint) 1 gm TOP DAILY PRN PRN Reason: Rash Bisacodyl (Dulcolax) 10 mg RECTAL ONETIME ONE Stop: 12/21/17 04:02 Last Admin: 12/21/17 04:17 Dose: Not Given Bisacodyl (Dulcolax) Confirm Administered Dose 10 mg .ROUTE .STK-MED ONE Stop: 01/08/18 11:37 Last Admin: 01/08/18 16:15 Dose: Not Given Bupropion HCl (Wellbutrin Xl) 150 mg PO DAILY [facility] Last Admin: 02/16/18 08:22 Dose: 150 mg Calcium Carbonate/Glycine (Tums) 500 mg PO TID PRN PRN Reason: Indigestion Ciprofloxacin (Ciprofloxacin Hcl) 500 mg PO BID [facility] Stop: 12/24/17 21:01 Last Admin: 12/24/17 21:04 Dose: 500 mg Al Hydroxide/Mg Hydroxide 40 ml/ Diphenhydramine HCl 12.5 mg/ Lidocaine HCl 40 ml 0 ml PO TID PRN PRN Reason: mouth sores/burning Last Admin: 10/28/17 08:11 Dose: 10 ml Cranberry (Azo Cranberry) 1 each PO BEDTIME [facility] Last Admin: 11/07/17 21:46 Dose: Not Given Diclofenac Sodium (Voltaren 1% Gel) 1 gm TOP QID [facility] Last Admin: 01/26/18 08:10 Dose: Not Given Diclofenac Sodium (Voltaren 1% Gel) 1 gm TOP QID PRN PRN Reason: Pain Last Admin: 02/08/18 20:12 Dose: 1 applic Furosemide (Lasix) 20 mg PO DAILY [facility] Last Admin: 12/13/17 09:25 Dose: 20 mg Furosemide (Lasix) 20 mg PO SUTUTHSA@1700 [facility] Last Admin: 12/12/17 16:01 Dose: 20 mg Furosemide (Lasix) 20 mg PO SuTuThSa@1500 [facility] Last Admin: 02/13/18 14:52 Dose: 20 mg Furosemide (Lasix) 20 mg PO DAILY@0700 [facility] Last Admin: 02/15/18 06:44 Dose: 20 mg Heparin Sodium (Porcine) (Heparin Lock Flush 100 Units/Ml) 500 units FLUSH ASDIRECTED PRN PRN Reason: Other Cefepime HCl 1 gm/ Sodium (Chloride) 50 mls @ 100 mls/hr IV Q8H [facility] Last Admin: 11/01/17 18:52 Dose: Not Given Cefepime HCl 1 gm/ Sodium (Chloride) 50 mls @ 100 mls/hr IV Q24H [facility] Last Admin: 11/07/17 20:32 Dose: 100 mls/hr Sodium Chloride (Normal Saline) Confirm Administered Dose 50 mls @ as directed .ROUTE .[facility] ONE Stop: 11/02/17 22:10 Last Admin: 11/02/17 23:15 Dose: 100 mls/hr Sodium Chloride (Normal Saline) Confirm Administered Dose 50 mls @ as directed .ROUTE .[facility] ONE Stop: 11/03/17 21:46 Last Admin: 11/03/17 21:56 Dose: Not Given Sodium Chloride (Normal Saline) 50 mls @ 50 mls/hr IV ASDIRECTED [facility] Albumin Human (Flexbumin 25%) 100 mls @ 50 mls/hr IV ONETIME ONE Stop: 11/22/17 13:59 Last Admin: 11/22/17 13:07 Dose: 50 mls/hr Sodium Chloride (Normal Saline) 250 mls @ 125 mls/hr IV ASDIRECTED [facility] Stop: 11/22/17 21:00 Last Admin: 11/22/17 15:40 Dose: 125 mls/hr Ciprofloxacin/Dextrose (Cipro In D5w 400 Mg/200 Ml) 200 mls @ 200 mls/hr IV Q12H [facility] Last Admin: 11/26/17 06:13 Dose: 200 mls/hr Sodium Chloride (Normal Saline) Confirm Administered Dose 100 mls @ as directed .ROUTE .[facility] ONE Stop: 11/22/17 20:04 Last Admin: 11/22/17 20:05 Dose: 100 mls/hr Sodium Chloride (Normal Saline) 100 mls @ 200 mls/hr IV ASDIRECTED [facility] Sodium Chloride (Normal Saline) 100 mls @ 20 mls/hr IV DAILY@1900 [facility] Last Admin: 11/25/17 18:08 Dose: 20 mls/hr Insulin Aspart (Novolog) 0 unit SUBCUT WITHMEALSANDBED [facility]; Protocol Stop: 10/31/17 00:00 Last Admin: 10/30/17 21:02 Dose: 5 units Insulin Aspart (Novolog) 2 unit SUBCUT ONETIME ONE Stop: 10/31/17 20:59 Last Admin: 10/31/17 21:07 Dose: 2 units Insulin Aspart (Novolog) 10 unit SUBCUT ONETIME ONE Stop: 11/12/17 17:44 Last Admin: 11/12/17 18:06 Dose: 10 units Insulin Aspart (Novolog) 0 unit SUBCUT TIDMEALS [facility]; Protocol Last Admin: 12/21/17 17:16 Dose: Not Given Insulin Detemir (Levemir) 44 unit SUBCUT DAILY [facility] Last Admin: 10/30/17 10:10 Dose: Not Given Insulin Detemir (Levemir) 40 unit SUBCUT DAILY [facility] Last Admin: 11/14/17 08:22 Dose: 40 units Insulin Detemir (Levemir) 44 unit SUBCUT DAILY [facility] Last Admin: 11/29/17 11:32 Dose: Not Given Insulin Detemir (Levemir) 34 unit SUBCUT DAILY [facility] Last Admin: 12/02/17 10:11 Dose: Not Given Insulin Detemir (Levemir) 30 unit SUBCUT DAILY [facility] Last Admin: 12/20/17 08:02 Dose: 30 units Insulin Detemir (Levemir) 40 unit SUBCUT DAILY [facility] Last Admin: 02/09/18 08:17 Dose: 40 units Insulin Detemir (Levemir) 10 unit SUBCUT ONETIME ONE Stop: 12/20/17 13:01 Last Admin: 12/20/17 14:38 Dose: 10 units Insulin Detemir (Levemir) 42 unit SUBCUT DAILY [facility] Last Admin: 02/16/18 08:24 Dose: 42 unit Lidocaine/Epinephrine (Xylocaine 1% With Epinephrine 1:100,000) 3 ml INJECT ONETIME ONE Stop: 11/05/17 09:01 Last Admin: 11/05/17 09:00 Dose: 3 ml Loperamide HCl (Imodium) 2 mg PO ASDIRECTED PRN PRN Reason: Diarrhea Last Admin: 11/30/17 05:53 Dose: 2 mg Lorazepam (Ativan) 0.25 mg PO Q8H PRN PRN Reason: Anxiety Last Admin: 12/13/17 18:03 Dose: 0.25 mg Lorazepam (Ativan) 0.25 mg PO Q8H PRN PRN Reason: Anxiety Losartan Potassium (Cozaar) 25 mg PO DAILY [facility] Last Admin: 11/27/17 09:05 Dose: 25 mg Losartan Potassium (Cozaar) 50 mg PO DAILY [facility] Last Admin: 12/25/17 08:57 Dose: 50 mg Losartan Potassium (Cozaar) 75 mg PO DAILY [facility] Last Admin: 01/17/18 08:26 Dose: 75 mg Losartan Potassium (Cozaar) 100 mg PO DAILY [facility] Last Admin: 02/16/18 08:24 Dose: 100 mg Magnesium Hydroxide (Milk Of Magnesia) 30 ml PO DAILY PRN PRN Reason: Constipation Last Admin: 10/26/17 09:10 Dose: 30 ml Melatonin (Melatonin) 6 mg PO BEDTIME [facility] Metoprolol Tartrate (Lopressor) 50 mg PO BID [facility] Last Admin: 02/15/18 08:51 Dose: 50 mg Multivitamins/Minerals (Centrum) 1 tab PO DAILY [facility] Last Admin: 12/20/17 08:03 Dose: 1 tab Multivitamins/Minerals (Centrum) 1 tab PO DAILY@1200 [facility] Last Admin: 12/27/17 11:36 Dose: 1 tab Mupirocin (Bactroban Crm) 1 gm TOP TID [facility] Last Admin: 10/29/17 11:29 Dose: Not Given Mupirocin (Bactroban Oint) 0 gm TOP DAILY [facility] Last Admin: 12/06/17 10:12 Dose: 1 applic Naloxegol (Movantik) 25 mg PO DAILY [facility] Last Admin: 02/16/18 08:22 Dose: 25 mg Insulin Degludec ( (Tresiba) 44units) 44 units SUBCUT DAILY [facility] Nystatin (Nystop) 0 gm TOP BID [facility] Last Admin: 10/25/17 08:58 Dose: 1 applic Nystatin (Nystop) 0 gm TOP TID [facility] Last Admin: 10/26/17 11:15 Dose: Not Given Nystatin (Nystatin Ointment) 0 gm TOP TID [facility] Last Admin: 11/04/17 15:49 Dose: Not Given Nystatin (Nystatin Ointment) 1 gm TOP DAILY PRN PRN Reason: Rash Last Admin: 12/26/17 08:19 Dose: 1 applic Nystatin (Nystatin Ointment) 1 gm TOP BID [facility] Last Admin: 01/01/18 09:12 Dose: Not Given Nystatin (Nystatin Ointment) 1 gm TOP BID PRN PRN Reason: Rash Nystatin (Nystatin Ointment) 0 gm TOP BID PRN PRN Reason: Rash Olanzapine (Zyprexa) 10 mg PO ASDIRECTED [facility] Olanzapine (Zyprexa) 10 mg PO BEDTIME [facility] Stop: 11/14/17 21:01 Last Admin: 11/14/17 21:28 Dose: 10 mg Olanzapine (Zyprexa) 10 mg PO BEDTIME [facility] Stop: 11/22/17 21:01 Last Admin: 11/22/17 21:41 Dose: 10 mg Omeprazole (Omeprazole) 20 mg PO SUTUTHSA@2100 [facility] Last Admin: 10/23/17 21:24 Dose: 20 mg Omeprazole (Omeprazole) 20 mg PO DAILY@2100 [facility] Last Admin: 12/11/17 20:18 Dose: 20 mg Omeprazole (Omeprazole) 20 mg PO BID [facility] Last Admin: 12/13/17 09:27 Dose: 20 mg Omeprazole (Omeprazole) 20 mg PO BIDAC [facility] Last Admin: 12/17/17 16:45 Dose: 20 mg Omeprazole (Omeprazole) 20 mg PO DAILY@0600,1700 [facility] Last Admin: 01/20/18 06:27 Dose: 20 mg Omeprazole (Omeprazole) 20 mg PO BID@0600,1700 [facility] Last Admin: 02/15/18 06:44 Dose: 20 mg Ondansetron HCl (Zofran Odt) 8 mg PO TID PRN PRN Reason: nausea or vomitting Last Admin: 01/26/18 17:53 Dose: 8 mg Oxycodone HCl (Oxycodone) 5 mg PO Q6H [facility] Last Admin: 10/23/17 06:11 Dose: 5 mg Oxycodone HCl (Oxycodone) 5 mg PO Q6H [facility] Last Admin: 10/24/17 06:21 Dose: Not Given Oxycodone HCl (Oxycodone) 5 mg PO Q6H PRN PRN Reason: Pain Last Admin: 02/14/18 13:38 Dose: 5 mg Oxycodone HCl (Oxycodone) 5 mg PO BEDTIME [facility] Last Admin: 12/07/17 20:02 Dose: 5 mg Oxycodone HCl (Oxycodone) 5 mg PO ONETIME ONE Stop: 11/23/17 18:12 Last Admin: 11/23/17 18:48 Dose: 5 mg Oxycodone HCl (Oxycodone) 7.5 mg PO BEDTIME [facility] Stop: 12/13/17 23:00 Last Admin: 12/13/17 20:05 Dose: 7.5 mg Oxycodone HCl (Oxycodone) 5 mg PO ONETIME ONE Stop: 12/13/17 17:59 Last Admin: 12/13/17 18:21 Dose: 5 mg Oxycodone HCl (Oxycontin) 10 mg PO Q12H [facility] Last Admin: 02/16/18 08:22 Dose: 10 mg Oxycodone HCl (Oxycontin) Confirm Administered Dose 10 mg .ROUTE .STK-MED ONE Stop: 12/31/17 11:25 Last Admin: 12/31/17 11:26 Dose: 10 mg Polysaccharide Iron Complex (Ferrex 150) 150 mg PO DAILY [facility] Last Admin: 12/20/17 08:05 Dose: 150 mg Polysaccharide Iron Complex (Ferrex 150) 150 mg PO DAILY@1200 [facility] Last Admin: 12/27/17 11:36 Dose: 150 mg Polysaccharide Iron Complex (Ferrex 150) 150 mg PO DAILY [facility] Last Admin: 02/09/18 08:17 Dose: 150 mg Polysaccharide Iron Complex (Ferrex 150) 150 mg PO Q48H [facility] Last Admin: 02/09/18 11:46 Dose: Not Given Prochlorperazine Maleate (Compazine) 10 mg PO QID PRN PRN Reason: Nausea Prochlorperazine Maleate (Compazine) 10 mg PO QID PRN PRN Reason: Nausea Last Admin: 01/16/18 20:25 Dose: 10 mg Ramelteon (Rozerem) 8 mg PO BEDTIME [facility] Last Admin: 02/16/18 22:33 Dose: 8 mg Senna/Docusate Sodium (Senna Plus) 1 tab PO BID PRN PRN Reason: Constipation Last Admin: 10/28/17 08:08 Dose: 1 tab Senna/Docusate Sodium (Senna Plus) 1 tab PO BID [facility] Last Admin: 11/04/17 15:49 Dose: Not Given Senna/Docusate Sodium (Senna Plus) 1 - 2 tab PO DAILY PRN PRN Reason: Constipation Sertraline HCl (Zoloft) 100 mg PO BEDTIME [facility] Last Admin: 01/07/18 20:58 Dose: 100 mg Sertraline HCl (Zoloft) 150 mg PO BEDTIME [facility] Last Admin: 02/14/18 20:02 Dose: 150 mg Simvastatin (Zocor) 40 mg PO BEDTIME [facility] Last Admin: 02/14/18 20:03 Dose: 40 mg Sodium Chloride ([place] [address]) 1 ml ALDO QID PRN PRN Reason: Dryness Last Admin: 11/12/17 21:03 Dose: 1 spray Sodium Chloride (Normal Saline) 20 ml FLUSH ASDIRECTED PRN PRN Reason: Other Sodium Chloride (Saline Flush) 20 ml FLUSH Q8H [facility] Last Admin: 11/02/17 10:46 Dose: Not Given Sodium Chloride (Saline Flush) 20 ml FLUSH Q8H [facility] Last Admin: 11/11/17 12:20 Dose: Not Given Zinc Gluconate (Zinc) 50 mg PO DAILY [facility] Last Admin: 12/20/17 08:05 Dose: 50 mg Zinc Gluconate (Zinc) 50 mg PO DAILY@1200 [facility] Last Admin: 12/27/17 11:35 Dose: 50 mg - Exam Quality Assessment: No: Supplemental Oxygen General: Alert, Oriented Neck: Supple Lungs: Clear to Auscultation, Normal Respiratory Effort Cardiovascular: Regular Rate, Regular Rhythm GI/Abdominal Exam: Distended Back Exam: No: CVA Tenderness (L), CVA Tenderness (R) Extremities: Pedal Edema (Mild pedal edema right greater than left) Skin: Other (Slowly healing decubitus ulcer) Wound/Incisions: Healing Well Psy/Mental Status: Alert, Normal Affect, Normal Mood - Problem List Review Problem List Initiated/Reviewed/Updated: Yes - Plan Plan:: HPI: This is a 76 year old female who had previously been in swing bed status due to a left humeral fracture and deconditioning. The patient has been recently diagnosed with peritoneal carcinomatosis. The patient was sent up to [facility] on 10/20/17 for abdominal paracentesis and pleurx catheter placement. She had labs done that day which showed a hemoglobin of 6.5. She was then admitted to their hospitalist services. She was given 2 units of PRBCs. She was due for her second cycle of carboplatin and taxol while there and this was completed on 10/21/17. She was also given Neulasta prior to discharge. The patient was admitted back to swing bed status for rehabilitation of her fracture and deconditioning. She has been in swing bed, SNF status for quite some time however it is making progress with wound or coccyx since removal of wound VAC therapy. PRIMARY ASSESSMENT/PLAN: Left humeral head fracture. Patient with periodic pain however mainly on movement. She does have significant limitations in her left arm with almost no ability to abduct. She is continue to work with physical therapy. Continue with ROM and strengthening. 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 Progressive healing continues. Has had 2 cm tracking superiorly however overall wound is shrinking. Physical therapy performing wound packing. Deconditioning. Continue physical therapy Immunocompromised host. No fever no infectious process. Malignant ascites. PleurX catheter clogged. Unsuccessful attempt upon removing. Anemia due to antineoplastic chemotherapy. Os recent hemoglobin Hgb stable at 12.3. Reassess Anxiety, situational, doing very well she did not need Xanax at recent wedding. Much improved affect SECONDARY ASSESSMENT/PLAN: Primary peritoneal carcinomatosis. Followed by Dr. Collier/oncology with ongoing Pleurx abdominal drain however is clogged. History of endometrial cancer, s/p hysterceomty 2010. CAD, no ischemic picture, stable. HTN. Continue lopressor and losartan and Norvasc 5 mg Aortic stenosis. History of atrial flutter. Type 2 DM. Adequate fasting Accuchecks daily. Tresiba switched to levemir daily due to not being available in house. 42 units CKD stage 3. Creatinine 1.03 acceptable Hyperlipidemia. Continue simvastatin. Obesity. Gout. Continue allopurinol 100 mg daily. Diabetic retinopathy. Depression. Continue zoloft. GERD. Continue omeprazole. OAB. Osteoarthritis. History of hypercalcemia. Recent Hypoalbuminemia. DVT prophylaxis. Score of 6, Continue with phan stockings. Overall plan: Continue an SNF with PT. Continue with physical therapy with left humeral exercises and wound care and packing. Eventually be transferring to snf facility. Labs in a.m.
[2018-02-27] MEDS: Aspirin 81 MG Tab.EC PO SCH (20:35)
[2018-02-27] MEDS: Simvastatin 20 MG Tab PO SCH (20:37)
[2018-02-27] MEDS: ROZEREM 8 MG PO SCH (20:38)
[2018-02-27] MEDS: Sertraline 100 MG Tab PO SCH (20:38)
[2018-02-28] MEDS: Furosemide 20 MG Tab PO SCH (06:22)
[2018-02-28] MEDS: Omeprazole 20 MG Cap.CR PO SCH ×2 (06:22→16:48)
[2018-02-28] MEDS: Acetaminophen 500 MG Tab PO SCH ×3 (07:51→23:59)
[2018-02-28 07:57] LABS: ANION GAP 10.6 mmol/L (5-15)
[2018-02-28] MEDS: Insulin Detemir 100 Units/ML 3 ML Pen SUBCUT SCH (08:32)
[2018-02-28] MEDS: Zinc (Zinc Gluconate) 50 MG Tab PO SCH (08:34)
[2018-02-28] MEDS: Metoprolol Tartrate 100 MG Tab PO SCH ×2 (08:34→20:23)
[2018-02-28] MEDS: Multivitamins with Minerals/Iron/Folic Acid/Lycopene Tab PO SCH (08:34)
[2018-02-28] MEDS: Docusate Sodium 100 MG Cap PO SCH (08:34)
[2018-02-28] MEDS: amLODIPine 5 MG Tab PO SCH (08:35)
[2018-02-28] MEDS: Allopurinol 100 MG Tab PO SCH (08:36)
[2018-02-28] MEDS: Losartan 100 MG Tab PO SCH (08:36)
[2018-02-28] MEDS: Naloxegol Oxalate 25 MG Tab PO SCH (08:36)
[2018-02-28] MEDS: buPROPion 150 MG Tab.ER PO SCH (08:36)
[2018-02-28] MEDS: oxyCODONE ER 10 MG TAB.ER PO SCH ×2 (08:37→20:18)
[2018-02-28] MEDS: Aspirin 81 MG Tab.EC PO SCH (20:18)
[2018-02-28] MEDS: ROZEREM 8 MG PO SCH (20:21)
[2018-02-28] MEDS: Simvastatin 20 MG Tab PO SCH (20:22)
[2018-02-28] MEDS: Sertraline 100 MG Tab PO SCH (20:22)
[2018-03-01] MEDS: Omeprazole 20 MG Cap.CR PO SCH ×2 (06:12→18:15)
[2018-03-01] MEDS: Acetaminophen 500 MG Tab PO SCH ×3 (06:12→23:50)
[2018-03-01] MEDS: Furosemide 20 MG Tab PO SCH ×2 (06:12→14:28)
[2018-03-01] MEDS: Insulin Detemir 100 Units/ML 3 ML Pen SUBCUT SCH (09:59)
[2018-03-01] MEDS: Docusate Sodium 100 MG Cap PO SCH (10:00)
[2018-03-01] MEDS: Multivitamins with Minerals/Iron/Folic Acid/Lycopene Tab PO SCH (10:01)
[2018-03-01] MEDS: Iron Polysaccharides Complex 150 MG Cap PO SCH (10:01)
[2018-03-01] MEDS: Zinc (Zinc Gluconate) 50 MG Tab PO SCH (10:01)
[2018-03-01] MEDS: Naloxegol Oxalate 25 MG Tab PO SCH (10:02)
[2018-03-01] MEDS: Losartan 100 MG Tab PO SCH (10:03)
[2018-03-01] MEDS: Allopurinol 100 MG Tab PO SCH (10:04)
[2018-03-01] MEDS: buPROPion 150 MG Tab.ER PO SCH (10:04)
[2018-03-01] MEDS: oxyCODONE ER 10 MG TAB.ER PO SCH ×2 (10:17→20:04)
[2018-03-01] MEDS: amLODIPine 5 MG Tab PO SCH (10:17)
[2018-03-01] MEDS: Metoprolol Tartrate 100 MG Tab PO SCH ×2 (10:18→20:05)
[2018-03-01] MEDS: oxyCODONE 5 MG Tab PO PRN (18:16)
[2018-03-01] MEDS: Aspirin 81 MG Tab.EC PO SCH (20:04)
[2018-03-01] MEDS: ROZEREM 8 MG PO SCH (20:04)
[2018-03-01] MEDS: Simvastatin 20 MG Tab PO SCH (20:06)
[2018-03-01] MEDS: Sertraline 100 MG Tab PO SCH (20:06)
[2018-03-02] MEDS: Omeprazole 20 MG Cap.CR PO SCH ×2 (06:25→17:35)
[2018-03-02] MEDS: Acetaminophen 500 MG Tab PO SCH ×2 (06:25→14:26)
[2018-03-02] MEDS: Furosemide 20 MG Tab PO SCH (06:25)
[2018-03-02] MEDS: buPROPion 150 MG Tab.ER PO SCH (09:02)
[2018-03-02] MEDS: Naloxegol Oxalate 25 MG Tab PO SCH (09:03)
[2018-03-02] MEDS: Allopurinol 100 MG Tab PO SCH (09:04)
[2018-03-02] MEDS: Insulin Detemir 100 Units/ML 3 ML Pen SUBCUT SCH (09:04)
[2018-03-02] MEDS: Multivitamins with Minerals/Iron/Folic Acid/Lycopene Tab PO SCH (09:06)
[2018-03-02] MEDS: Docusate Sodium 100 MG Cap PO SCH (09:06)
[2018-03-02] MEDS: Zinc (Zinc Gluconate) 50 MG Tab PO SCH (09:06)
[2018-03-02] MEDS: oxyCODONE ER 10 MG TAB.ER PO SCH ×2 (09:13→20:37)
[2018-03-02] MEDS: NYSTATIN TOP PRN (09:14)
[2018-03-02] MEDS: Losartan 100 MG Tab PO SCH (09:17)
[2018-03-02] MEDS: Metoprolol Tartrate 100 MG Tab PO SCH ×2 (09:18→20:37)
[2018-03-02] MEDS: amLODIPine 5 MG Tab PO SCH (09:18)
[2018-03-02] MEDS: Aspirin 81 MG Tab.EC PO SCH (20:36)
[2018-03-02] MEDS: ROZEREM 8 MG PO SCH (20:37)
[2018-03-02] MEDS: Sertraline 100 MG Tab PO SCH (20:37)
[2018-03-02] MEDS: Simvastatin 20 MG Tab PO SCH (20:38)
[2018-03-03] MEDS: Acetaminophen 500 MG Tab PO SCH ×4 (00:09→22:52)
[2018-03-03] MEDS: Omeprazole 20 MG Cap.CR PO SCH ×2 (06:12→17:11)
[2018-03-03] MEDS: Furosemide 20 MG Tab PO SCH ×2 (06:13→14:09)
[2018-03-03] MEDS: NYSTATIN TOP PRN ×2 (08:54→19:49)
[2018-03-03] MEDS: Insulin Detemir 100 Units/ML 3 ML Pen SUBCUT SCH (08:54)
[2018-03-03] MEDS: Multivitamins with Minerals/Iron/Folic Acid/Lycopene Tab PO SCH (08:55)
[2018-03-03] MEDS: Diclofenac Sodium 1% Gel 100 GM Tube TOP PRN (08:55)
[2018-03-03] MEDS: Iron Polysaccharides Complex 150 MG Cap PO SCH (08:56)
[2018-03-03] MEDS: Zinc (Zinc Gluconate) 50 MG Tab PO SCH (08:56)
[2018-03-03] MEDS: Docusate Sodium 100 MG Cap PO SCH (08:56)
[2018-03-03] MEDS: buPROPion 150 MG Tab.ER PO SCH (08:57)
[2018-03-03] MEDS: Losartan 100 MG Tab PO SCH (08:57)
[2018-03-03] MEDS: Allopurinol 100 MG Tab PO SCH (08:57)
[2018-03-03] MEDS: amLODIPine 5 MG Tab PO SCH (08:57)
[2018-03-03] MEDS: oxyCODONE ER 10 MG TAB.ER PO SCH ×3 (08:57→20:02)
[2018-03-03] MEDS: Naloxegol Oxalate 25 MG Tab PO SCH (08:58)
[2018-03-03] MEDS: Metoprolol Tartrate 100 MG Tab PO SCH ×3 (08:59→20:01)
[2018-03-03] MEDS: Aspirin 81 MG Tab.EC PO SCH ×2 (19:58→20:01)
[2018-03-03] MEDS: Sertraline 100 MG Tab PO SCH (19:59)
[2018-03-03] MEDS: ROZEREM 8 MG PO SCH (19:59)
[2018-03-03] MEDS: Simvastatin 20 MG Tab PO SCH (19:59)
[2018-03-04] MEDS: Omeprazole 20 MG Cap.CR PO SCH ×2 (05:57→18:14)
[2018-03-04] MEDS: Furosemide 20 MG Tab PO SCH (05:59)
[2018-03-04] MEDS: Acetaminophen 500 MG Tab PO SCH ×3 (06:00→22:34)
[2018-03-04] MEDS: Insulin Detemir 100 Units/ML 3 ML Pen SUBCUT SCH (08:58)
[2018-03-04] MEDS: Docusate Sodium 100 MG Cap PO SCH (09:00)
[2018-03-04] MEDS: Multivitamins with Minerals/Iron/Folic Acid/Lycopene Tab PO SCH (09:00)
[2018-03-04] MEDS: oxyCODONE ER 10 MG TAB.ER PO SCH ×2 (09:01→20:01)
[2018-03-04] MEDS: Zinc (Zinc Gluconate) 50 MG Tab PO SCH (09:01)
[2018-03-04] MEDS: Allopurinol 100 MG Tab PO SCH (09:02)
[2018-03-04] MEDS: amLODIPine 5 MG Tab PO SCH (09:02)
[2018-03-04] MEDS: Losartan 100 MG Tab PO SCH (09:03)
[2018-03-04] MEDS: buPROPion 150 MG Tab.ER PO SCH (09:03)
[2018-03-04] MEDS: Naloxegol Oxalate 25 MG Tab PO SCH (09:06)
[2018-03-04] MEDS: Metoprolol Tartrate 100 MG Tab PO SCH ×2 (09:09→20:01)
[2018-03-04] MEDS: NYSTATIN TOP PRN (09:10)
[2018-03-04] MEDS: oxyCODONE 5 MG Tab PO PRN (18:14)
[2018-03-04] MEDS: ROZEREM 8 MG PO SCH (20:01)
[2018-03-04] MEDS: Aspirin 81 MG Tab.EC PO SCH (20:01)
[2018-03-04] MEDS: Simvastatin 20 MG Tab PO SCH (20:02)
[2018-03-04] MEDS: Sertraline 100 MG Tab PO SCH (20:02)
[2018-03-05] MEDS: Omeprazole 20 MG Cap.CR PO SCH ×2 (05:54→17:03)
[2018-03-05] MEDS: Acetaminophen 500 MG Tab PO SCH ×3 (06:05→22:28)
[2018-03-05] MEDS: Furosemide 20 MG Tab PO SCH ×2 (06:06→14:51)
[2018-03-05] MEDS: Zinc (Zinc Gluconate) 50 MG Tab PO SCH (08:50)
[2018-03-05] MEDS: Multivitamins with Minerals/Iron/Folic Acid/Lycopene Tab PO SCH (08:51)
[2018-03-05] MEDS: Iron Polysaccharides Complex 150 MG Cap PO SCH (08:51)
[2018-03-05] MEDS: Docusate Sodium 100 MG Cap PO SCH (08:51)
[2018-03-05] MEDS: amLODIPine 5 MG Tab PO SCH (08:52)
[2018-03-05] MEDS: Allopurinol 100 MG Tab PO SCH (08:52)
[2018-03-05] MEDS: Naloxegol Oxalate 25 MG Tab PO SCH (08:53)
[2018-03-05] MEDS: Insulin Detemir 100 Units/ML 3 ML Pen SUBCUT SCH (08:54)
[2018-03-05] MEDS: buPROPion 150 MG Tab.ER PO SCH (08:55)
[2018-03-05] MEDS: Metoprolol Tartrate 100 MG Tab PO SCH ×2 (08:56→20:02)
[2018-03-05] MEDS: Losartan 100 MG Tab PO SCH (08:57)
[2018-03-05] MEDS: oxyCODONE ER 10 MG TAB.ER PO SCH ×2 (09:22→20:03)
[2018-03-05] MEDS: Aspirin 81 MG Tab.EC PO SCH (20:01)
[2018-03-05] MEDS: Sertraline 100 MG Tab PO SCH (20:01)
[2018-03-05] MEDS: Simvastatin 20 MG Tab PO SCH (20:02)
[2018-03-05] MEDS: ROZEREM 8 MG PO SCH (20:02)
[2018-03-06] MEDS: Omeprazole 20 MG Cap.CR PO SCH ×2 (05:59→17:41)
[2018-03-06] MEDS: Acetaminophen 500 MG Tab PO SCH ×3 (06:03→22:53)
[2018-03-06] MEDS: Furosemide 20 MG Tab PO SCH ×2 (06:04→17:41)
[2018-03-06] MEDS: buPROPion 150 MG Tab.ER PO SCH (08:11)
[2018-03-06] MEDS: amLODIPine 5 MG Tab PO SCH (08:11)
[2018-03-06] MEDS: Allopurinol 100 MG Tab PO SCH (08:12)
[2018-03-06] MEDS: Losartan 100 MG Tab PO SCH (08:12)
[2018-03-06] MEDS: Naloxegol Oxalate 25 MG Tab PO SCH (08:13)
[2018-03-06] MEDS: Multivitamins with Minerals/Iron/Folic Acid/Lycopene Tab PO SCH (08:13)
[2018-03-06] MEDS: Docusate Sodium 100 MG Cap PO SCH (08:13)
[2018-03-06] MEDS: Zinc (Zinc Gluconate) 50 MG Tab PO SCH (08:13)
[2018-03-06] MEDS: Metoprolol Tartrate 100 MG Tab PO SCH ×2 (08:15→20:04)
[2018-03-06] MEDS: Insulin Detemir 100 Units/ML 3 ML Pen SUBCUT SCH (08:16)
[2018-03-06] MEDS: oxyCODONE ER 10 MG TAB.ER PO SCH ×2 (08:17→20:04)
[2018-03-06] MEDS: Aspirin 81 MG Tab.EC PO SCH (20:03)
[2018-03-06] MEDS: ROZEREM 8 MG PO SCH (20:04)
[2018-03-06] MEDS: Simvastatin 20 MG Tab PO SCH (20:04)
[2018-03-06] MEDS: Sertraline 100 MG Tab PO SCH (20:05)
[2018-03-07] MEDS: Acetaminophen 500 MG Tab PO SCH ×3 (06:00→23:39)
[2018-03-07] MEDS: Omeprazole 20 MG Cap.CR PO SCH ×2 (06:00→17:14)
[2018-03-07] MEDS: Furosemide 20 MG Tab PO SCH (06:01)
[2018-03-07] MEDS: Zinc (Zinc Gluconate) 50 MG Tab PO SCH (08:16)
[2018-03-07] MEDS: Docusate Sodium 100 MG Cap PO SCH (08:17)
[2018-03-07] MEDS: Iron Polysaccharides Complex 150 MG Cap PO SCH (08:17)
[2018-03-07] MEDS: Multivitamins with Minerals/Iron/Folic Acid/Lycopene Tab PO SCH (08:17)
[2018-03-07] MEDS: Allopurinol 100 MG Tab PO SCH (08:19)
[2018-03-07] MEDS: Naloxegol Oxalate 25 MG Tab PO SCH (08:19)
[2018-03-07] MEDS: buPROPion 150 MG Tab.ER PO SCH (08:19)
[2018-03-07] MEDS: amLODIPine 5 MG Tab PO SCH (08:22)
[2018-03-07] MEDS: Losartan 100 MG Tab PO SCH (08:23)
[2018-03-07] MEDS: Metoprolol Tartrate 100 MG Tab PO SCH ×2 (08:23→20:16)
[2018-03-07] MEDS: Insulin Detemir 100 Units/ML 3 ML Pen SUBCUT SCH (08:24)
[2018-03-07] MEDS: oxyCODONE ER 10 MG TAB.ER PO SCH ×2 (08:53→20:16)
[2018-03-07] MEDS: NYSTATIN TOP PRN ×2 (08:53→20:19)
[2018-03-07] MEDS: Aspirin 81 MG Tab.EC PO SCH (20:16)
[2018-03-07] MEDS: Sertraline 100 MG Tab PO SCH (20:17)
[2018-03-07] MEDS: ROZEREM 8 MG PO SCH (20:17)
[2018-03-07] MEDS: Simvastatin 20 MG Tab PO SCH (20:18)
[2018-03-08] MEDS: Furosemide 20 MG Tab PO SCH ×2 (06:15→14:41)
[2018-03-08] MEDS: Acetaminophen 500 MG Tab PO SCH ×3 (06:15→22:58)
[2018-03-08] MEDS: Omeprazole 20 MG Cap.CR PO SCH ×2 (06:15→16:52)
[2018-03-08] MEDS: oxyCODONE ER 10 MG TAB.ER PO SCH ×2 (08:33→20:58)
[2018-03-08] MEDS: Allopurinol 100 MG Tab PO SCH (08:34)
[2018-03-08] MEDS: amLODIPine 5 MG Tab PO SCH (08:34)
[2018-03-08] MEDS: buPROPion 150 MG Tab.ER PO SCH (08:34)
[2018-03-08] MEDS: Losartan 100 MG Tab PO SCH (08:35)
[2018-03-08] MEDS: Naloxegol Oxalate 25 MG Tab PO SCH (08:35)
[2018-03-08] MEDS: Metoprolol Tartrate 100 MG Tab PO SCH ×2 (08:36→21:00)
[2018-03-08] MEDS: Insulin Detemir 100 Units/ML 3 ML Pen SUBCUT SCH (08:37)
[2018-03-08] MEDS: Zinc (Zinc Gluconate) 50 MG Tab PO SCH (08:41)
[2018-03-08] MEDS: Multivitamins with Minerals/Iron/Folic Acid/Lycopene Tab PO SCH (08:42)
[2018-03-08] MEDS: Docusate Sodium 100 MG Cap PO SCH (08:42)
[2018-03-08] MEDS: Aspirin 81 MG Tab.EC PO SCH (20:58)
[2018-03-08] MEDS: Simvastatin 20 MG Tab PO SCH (21:00)
[2018-03-08] MEDS: ROZEREM 8 MG PO SCH (21:00)
[2018-03-08] MEDS: Sertraline 100 MG Tab PO SCH (21:03)
[2018-03-09] MEDS: Acetaminophen 500 MG Tab PO SCH ×3 (06:17→22:22)
[2018-03-09] MEDS: Omeprazole 20 MG Cap.CR PO SCH ×2 (06:17→17:21)
[2018-03-09] MEDS: Furosemide 20 MG Tab PO SCH (06:17)
[2018-03-09] MEDS: Zinc (Zinc Gluconate) 50 MG Tab PO SCH (08:28)
[2018-03-09] MEDS: Multivitamins with Minerals/Iron/Folic Acid/Lycopene Tab PO SCH (08:28)
[2018-03-09] MEDS: Docusate Sodium 100 MG Cap PO SCH (08:28)
[2018-03-09] MEDS: oxyCODONE ER 10 MG TAB.ER PO SCH ×2 (08:28→21:36)
[2018-03-09] MEDS: Iron Polysaccharides Complex 150 MG Cap PO SCH (08:29)
[2018-03-09] MEDS: buPROPion 150 MG Tab.ER PO SCH (08:29)
[2018-03-09] MEDS: Naloxegol Oxalate 25 MG Tab PO SCH (08:29)
[2018-03-09] MEDS: Metoprolol Tartrate 100 MG Tab PO SCH ×2 (08:30→21:38)
[2018-03-09] MEDS: amLODIPine 5 MG Tab PO SCH (08:30)
[2018-03-09] MEDS: Allopurinol 100 MG Tab PO SCH (08:30)
[2018-03-09] MEDS: Losartan 100 MG Tab PO SCH (08:30)
[2018-03-09] MEDS: Insulin Detemir 100 Units/ML 3 ML Pen SUBCUT SCH (08:31)
[2018-03-09] MEDS: Aspirin 81 MG Tab.EC PO SCH (21:35)
[2018-03-09] MEDS: Simvastatin 20 MG Tab PO SCH (21:36)
[2018-03-09] MEDS: ROZEREM 8 MG PO SCH (21:36)
[2018-03-09] MEDS: Sertraline 100 MG Tab PO SCH (21:37)
[2018-03-10] MEDS: Omeprazole 20 MG Cap.CR PO SCH ×2 (05:40→16:59)
[2018-03-10] MEDS: Acetaminophen 500 MG Tab PO SCH ×2 (06:22→14:08)
[2018-03-10] MEDS: Furosemide 20 MG Tab PO SCH ×2 (06:22→14:08)
[2018-03-10] MEDS: Multivitamins with Minerals/Iron/Folic Acid/Lycopene Tab PO SCH (08:31)
[2018-03-10] MEDS: Docusate Sodium 100 MG Cap PO SCH (08:31)
[2018-03-10] MEDS: Zinc (Zinc Gluconate) 50 MG Tab PO SCH (08:31)
[2018-03-10] MEDS: Allopurinol 100 MG Tab PO SCH (08:32)
[2018-03-10] MEDS: buPROPion 150 MG Tab.ER PO SCH (08:33)
[2018-03-10] MEDS: amLODIPine 5 MG Tab PO SCH (08:33)
[2018-03-10] MEDS: Losartan 100 MG Tab PO SCH (08:33)
[2018-03-10] MEDS: Insulin Detemir 100 Units/ML 3 ML Pen SUBCUT SCH (08:33)
[2018-03-10] MEDS: oxyCODONE ER 10 MG TAB.ER PO SCH ×2 (08:34→20:41)
[2018-03-10] MEDS: Metoprolol Tartrate 100 MG Tab PO SCH ×2 (08:34→20:47)
[2018-03-10] MEDS: Naloxegol Oxalate 25 MG Tab PO SCH (08:34)
[2018-03-10] MEDS: Aspirin 81 MG Tab.EC PO SCH (20:41)
[2018-03-10] MEDS: ROZEREM 8 MG PO SCH (20:42)
[2018-03-10] MEDS: Sertraline 100 MG Tab PO SCH (20:42)
[2018-03-10] MEDS: Simvastatin 20 MG Tab PO SCH (20:43)
[2018-03-11] MEDS: Acetaminophen 500 MG Tab PO SCH ×3 (00:09→15:46)
[2018-03-11] MEDS: Omeprazole 20 MG Cap.CR PO SCH ×2 (05:05→17:44)
[2018-03-11] MEDS: Furosemide 20 MG Tab PO SCH (06:11)
[2018-03-11] MEDS: NYSTATIN TOP PRN (08:26)
[2018-03-11] MEDS: Allopurinol 100 MG Tab PO SCH (08:26)
[2018-03-11] MEDS: Insulin Detemir 100 Units/ML 3 ML Pen SUBCUT SCH (08:26)
[2018-03-11] MEDS: Naloxegol Oxalate 25 MG Tab PO SCH (08:27)
[2018-03-11] MEDS: Docusate Sodium 100 MG Cap PO SCH (08:27)
[2018-03-11] MEDS: buPROPion 150 MG Tab.ER PO SCH (08:27)
[2018-03-11] MEDS: Multivitamins with Minerals/Iron/Folic Acid/Lycopene Tab PO SCH (08:27)
[2018-03-11] MEDS: Zinc (Zinc Gluconate) 50 MG Tab PO SCH (08:27)
[2018-03-11] MEDS: amLODIPine 5 MG Tab PO SCH (08:27)
[2018-03-11] MEDS: Losartan 100 MG Tab PO SCH (08:27)
[2018-03-11] MEDS: Metoprolol Tartrate 100 MG Tab PO SCH ×2 (08:28→20:25)
[2018-03-11] MEDS: Iron Polysaccharides Complex 150 MG Cap PO SCH (08:28)
--- NOTE | 2018-03-11 08:33 | PCM.PN ---
- General Info Date of Service: 03/10/18 Functional Status: Reports: Pain Controlled, Tolerating Diet, Ambulating, New Symptoms (Slight pain positionally her home [place] of Pleurx drain catheter), Incentive Spirometry - Review of Systems General: Reports: Weakness. Denies: Fever, Night Sweats HEENT: Reports: No Symptoms Pulmonary: Reports: No Symptoms Cardiovascular: Reports: No Symptoms Gastrointestinal: Reports: No Symptoms Musculoskeletal: Reports: Arm Pain (Left arm and shoulder pain upon movement) Skin: Reports: Other (Sacral decubitus ulceration) Neurological: Reports: Pre-Existing Deficit, Weakness Psychiatric: Reports: No Symptoms - Patient Data Vitals - Most Recent: Last Vital Signs Temp 98.0 F 03/11/18 06:04 Pulse 68 03/11/18 06:04 Resp 18 03/11/18 06:04 BP 186/74 H 03/11/18 06:04 Pulse Ox 97 03/11/18 06:04 Weight - Most Recent: 193 lb 8 oz I&O - Last 24 Hours: Intake & Output 03/10/18 03/11/18 03/11/18 22:59 06:59 14:59 Intake Total 250 0 Balance 250 0 Lab Results Last 24 Hours: Laboratory Results - last 24 hr 03/11/18 Range/Units 06:09 POC Glucose 144 H (74-106) mg/dl Med Orders - Current: Current Medications Acetaminophen (Tylenol Extra Strength) 1,000 mg PO Q8H [facility] Last Admin: 03/11/18 06:10 Dose: 1,000 mg Al Hydroxide/Mg Hydroxide (Mag-Al Susp) 30 ml PO Q6H PRN PRN Reason: Heartburn Last Admin: 01/18/18 12:18 Dose: 30 ml Aspirin (Halfprin) 81 mg PO BEDTIME [facility] Last Admin: 03/10/18 20:41 Dose: 81 mg Bisacodyl (Dulcolax) 10 mg RECTAL DAILY PRN PRN Reason: Constipation Last Admin: 01/08/18 11:45 Dose: 10 mg Docusate Sodium (Colace) 100 mg PO DAILY [facility] Last Admin: 03/11/18 08:27 Dose: 100 mg Multivitamins/Minerals (Centrum) 1 tab PO DAILY [facility] Last Admin: 03/11/18 08:27 Dose: 1 tab Allopurinol 100 Mg (Tab) 1 each PO DAILY [facility] Last Admin: 03/11/18 08:26 Dose: 1 each Metoprolol Tartrate (100 Mg Tab) 0.5 each PO BID [facility] Last Admin: 03/11/18 08:28 Dose: 0.5 each Simvastatin 20 Mg (Tab) 1 each PO BEDTIME [facility] Last Admin: 03/10/18 20:43 Dose: 1 each Prochlorperazine 10 (Mg Tab) 1 each PO QID PRN PRN Reason: Nausea Furosemide 20 Mg Tab 1 each PO SuTuThSa@1500 [facility] Last Admin: 03/10/18 14:08 Dose: 1 each Furosemide 20 Mg Tab 1 each PO DAILY@0700 [facility] Last Admin: 03/11/18 06:11 Dose: 1 each Sertraline 100 Mg (Tab) 1.5 each PO BEDTIME [facility] Last Admin: 03/10/18 20:42 Dose: 1.5 each Omeprazole 20 Mg Cap (.Cr) 1 each PO BID@0600,1700 [facility] Last Admin: 03/11/18 05:05 Dose: 1 each Ondansetron 4 Mg Tab 2 each PO TID PRN PRN Reason: nausea or vomitting Last Admin: 02/16/18 09:46 Dose: 2 each Naloxegol Oxalate 25 (Mg Tab) 1 each PO DAILY [facility] Last Admin: 03/11/18 08:27 Dose: 1 each Bupropion 150 Mg Tab (.Er) 1 each PO DAILY [facility] Last Admin: 03/11/18 08:27 Dose: 1 each Losartan 100 Mg Tab 1 each PO DAILY [facility] Last Admin: 03/11/18 08:27 Dose: 1 each Oxycodone Er 10 Mg (Tab.Er) 1 each PO Q12H [facility] Last Admin: 03/10/18 20:41 Dose: 1 each Oxycodone 5 Mg Tab 5 each PO Q6H PRN PRN Reason: Pain Last Admin: 03/04/18 18:14 Dose: 5 each Insulin Detemir 100 (Units/Ml 3 Ml Pen) 42 each SUBCUT DAILY [facility] Last Admin: 03/11/18 08:26 Dose: 42 each Diclofenac Sodium 1% (Gel 100 Gm Tube) 1 each TOP QID PRN PRN Reason: Pain Last Admin: 03/03/18 08:55 Dose: 1 each Rozerem 8mg Tablet 1 each PO BEDTIME [facility] Last Admin: 03/10/18 20:42 Dose: 1 each Alprazolam 0.25 Mg (Tab) 1 each PO Q8H PRN PRN Reason: Anxiety Nystatin Cream 30gm (Tube) 1 each TOP BID PRN PRN Reason: Rash Last Admin: 03/11/18 08:26 Dose: 1 each Amlodipine 5 Mg Tab 1 each PO DAILY [facility] Last Admin: 03/11/18 08:27 Dose: 1 each Polyethylene Glycol (Miralax) 17 gm PO DAILY PRN PRN Reason: Constipation Last Admin: 02/22/18 20:19 Dose: 17 gm Polysaccharide Iron Complex (Ferrex 150) 150 mg PO Q48H [facility] Last Admin: 03/11/18 08:28 Dose: 150 mg Promethazine HCl (Phenergan) 25 mg IM Q6H PRN PRN Reason: Nausea Last Admin: 01/02/18 18:21 Dose: 25 mg Senna/Docusate Sodium (Senna Plus) 1 tab PO BEDTIME [facility] Last Admin: 03/10/18 20:46 Dose: 1 tab Simethicone (Simethicone) 80 mg PO Q6H PRN PRN Reason: Heartburn Last Admin: 01/18/18 06:13 Dose: 80 mg Zinc Gluconate (Zinc) 50 mg PO DAILY [facility] Last Admin: 03/11/18 08:27 Dose: 50 mg Discontinued Medications Acetaminophen (Tylenol Extra Strength) 1,000 mg PO Q8H [facility] Last Admin: 10/23/17 02:00 Dose: 1,000 mg Acetaminophen (Tylenol Extra Strength) 1,000 mg PO Q8H [facility] Last Admin: 11/22/17 15:12 Dose: 1,000 mg Acetaminophen (Tylenol) Confirm Administered Dose 975 mg .ROUTE .STK-MED ONE Stop: 11/08/17 07:36 Last Admin: 11/08/17 08:28 Dose: 975 mg Hydrocodone Bitart/Acetaminophen ([place] 325-5 Mg) 1 - 2 tab PO Q4H PRN PRN Reason: Moderate Pain Last Admin: 10/24/17 19:26 Dose: 1 tab Al Hydroxide/Mg Hydroxide (Mag-Al Susp) Confirm Administered Dose 30 ml .ROUTE .STK-MED ONE Stop: 01/09/18 21:49 Last Admin: 01/09/18 22:00 Dose: 30 ml Al Hydroxide/Mg Hydroxide (Mag-Al Susp) 30 ml PO Q6H PRN PRN Reason: Heartburn Last Admin: 01/09/18 22:00 Dose: 30 ml Allopurinol (Zyloprim) 100 mg PO DAILY [facility] Last Admin: 02/15/18 08:51 Dose: 100 mg Alprazolam (Xanax) 0.25 mg PO Q8H PRN PRN Reason: Anxiety Last Admin: 02/19/18 02:06 Dose: 0.25 mg Amlodipine Besylate (Norvasc) 5 mg PO DAILY [facility] Last Admin: 02/16/18 08:24 Dose: 5 mg Bacitracin (Bacitracin Oint) 1 gm TOP DAILY PRN PRN Reason: Rash Bisacodyl (Dulcolax) 10 mg RECTAL ONETIME ONE Stop: 12/21/17 04:02 Last Admin: 12/21/17 04:17 Dose: Not Given Bisacodyl (Dulcolax) Confirm Administered Dose 10 mg .ROUTE .STK-MED ONE Stop: 01/08/18 11:37 Last Admin: 01/08/18 16:15 Dose: Not Given Bupropion HCl (Wellbutrin Xl) 150 mg PO DAILY [facility] Last Admin: 02/16/18 08:22 Dose: 150 mg Calcium Carbonate/Glycine (Tums) 500 mg PO TID PRN PRN Reason: Indigestion Ciprofloxacin (Ciprofloxacin Hcl) 500 mg PO BID [facility] Stop: 12/24/17 21:01 Last Admin: 12/24/17 21:04 Dose: 500 mg Al Hydroxide/Mg Hydroxide 40 ml/ Diphenhydramine HCl 12.5 mg/ Lidocaine HCl 40 ml 0 ml PO TID PRN PRN Reason: mouth sores/burning Last Admin: 10/28/17 08:11 Dose: 10 ml Cranberry (Azo Cranberry) 1 each PO BEDTIME [facility] Last Admin: 11/07/17 21:46 Dose: Not Given Diclofenac Sodium (Voltaren 1% Gel) 1 gm TOP QID [facility] Last Admin: 01/26/18 08:10 Dose: Not Given Diclofenac Sodium (Voltaren 1% Gel) 1 gm TOP QID PRN PRN Reason: Pain Last Admin: 02/08/18 20:12 Dose: 1 applic Furosemide (Lasix) 20 mg PO DAILY [facility] Last Admin: 12/13/17 09:25 Dose: 20 mg Furosemide (Lasix) 20 mg PO SUTUTHSA@1700 [facility] Last Admin: 12/12/17 16:01 Dose: 20 mg Furosemide (Lasix) 20 mg PO SuTuThSa@1500 [facility] Last Admin: 02/13/18 14:52 Dose: 20 mg Furosemide (Lasix) 20 mg PO DAILY@0700 [facility] Last Admin: 02/15/18 06:44 Dose: 20 mg Heparin Sodium (Porcine) (Heparin Lock Flush 100 Units/Ml) 500 units FLUSH ASDIRECTED PRN PRN Reason: Other Cefepime HCl 1 gm/ Sodium (Chloride) 50 mls @ 100 mls/hr IV Q8H [facility] Last Admin: 11/01/17 18:52 Dose: Not Given Cefepime HCl 1 gm/ Sodium (Chloride) 50 mls @ 100 mls/hr IV Q24H [facility] Last Admin: 11/07/17 20:32 Dose: 100 mls/hr Sodium Chloride (Normal Saline) Confirm Administered Dose 50 mls @ as directed .ROUTE .STK-MED ONE Stop: 11/02/17 22:10 Last Admin: 11/02/17 23:15 Dose: 100 mls/hr Sodium Chloride (Normal Saline) Confirm Administered Dose 50 mls @ as directed .ROUTE .STK-MED ONE Stop: 11/03/17 21:46 Last Admin: 11/03/17 21:56 Dose: Not Given Sodium Chloride (Normal Saline) 50 mls @ 50 mls/hr IV ASDIRECTED [facility] Albumin Human (Flexbumin 25%) 100 mls @ 50 mls/hr IV ONETIME ONE Stop: 11/22/17 13:59 Last Admin: 11/22/17 13:07 Dose: 50 mls/hr Sodium Chloride (Normal Saline) 250 mls @ 125 mls/hr IV ASDIRECTED [facility] Stop: 11/22/17 21:00 Last Admin: 11/22/17 15:40 Dose: 125 mls/hr Ciprofloxacin/Dextrose (Cipro In D5w 400 Mg/200 Ml) 200 mls @ 200 mls/hr IV Q12H [facility] Last Admin: 11/26/17 06:13 Dose: 200 mls/hr Sodium Chloride (Normal Saline) Confirm Administered Dose 100 mls @ as directed .ROUTE .STK-MED ONE Stop: 11/22/17 20:04 Last Admin: 11/22/17 20:05 Dose: 100 mls/hr Sodium Chloride (Normal Saline) 100 mls @ 200 mls/hr IV ASDIRECTED [facility] Sodium Chloride (Normal Saline) 100 mls @ 20 mls/hr IV DAILY@1900 [facility] Last Admin: 11/25/17 18:08 Dose: 20 mls/hr Insulin Aspart (Novolog) 0 unit SUBCUT WITHMEALSANDBED [facility]; Protocol Stop: 10/31/17 00:00 Last Admin: 10/30/17 21:02 Dose: 5 units Insulin Aspart (Novolog) 2 unit SUBCUT ONETIME ONE Stop: 10/31/17 20:59 Last Admin: 10/31/17 21:07 Dose: 2 units Insulin Aspart (Novolog) 10 unit SUBCUT ONETIME ONE Stop: 11/12/17 17:44 Last Admin: 11/12/17 18:06 Dose: 10 units Insulin Aspart (Novolog) 0 unit SUBCUT TIDMEALS [facility]; Protocol Last Admin: 12/21/17 17:16 Dose: Not Given Insulin Detemir (Levemir) 44 unit SUBCUT DAILY [facility] Last Admin: 10/30/17 10:10 Dose: Not Given Insulin Detemir (Levemir) 40 unit SUBCUT DAILY [facility] Last Admin: 11/14/17 08:22 Dose: 40 units Insulin Detemir (Levemir) 44 unit SUBCUT DAILY [facility] Last Admin: 11/29/17 11:32 Dose: Not Given Insulin Detemir (Levemir) 34 unit SUBCUT DAILY [facility] Last Admin: 12/02/17 10:11 Dose: Not Given Insulin Detemir (Levemir) 30 unit SUBCUT DAILY [facility] Last Admin: 12/20/17 08:02 Dose: 30 units Insulin Detemir (Levemir) 40 unit SUBCUT DAILY [facility] Last Admin: 02/09/18 08:17 Dose: 40 units Insulin Detemir (Levemir) 10 unit SUBCUT ONETIME ONE Stop: 12/20/17 13:01 Last Admin: 12/20/17 14:38 Dose: 10 units Insulin Detemir (Levemir) 42 unit SUBCUT DAILY [facility] Last Admin: 02/16/18 08:24 Dose: 42 unit Lidocaine/Epinephrine (Xylocaine 1% With Epinephrine 1:100,000) 3 ml INJECT ONETIME ONE Stop: 11/05/17 09:01 Last Admin: 11/05/17 09:00 Dose: 3 ml Loperamide HCl (Imodium) 2 mg PO ASDIRECTED PRN PRN Reason: Diarrhea Last Admin: 11/30/17 05:53 Dose: 2 mg Lorazepam (Ativan) 0.25 mg PO Q8H PRN PRN Reason: Anxiety Last Admin: 12/13/17 18:03 Dose: 0.25 mg Lorazepam (Ativan) 0.25 mg PO Q8H PRN PRN Reason: Anxiety Losartan Potassium (Cozaar) 25 mg PO DAILY [facility] Last Admin: 11/27/17 09:05 Dose: 25 mg Losartan Potassium (Cozaar) 50 mg PO DAILY [facility] Last Admin: 12/25/17 08:57 Dose: 50 mg Losartan Potassium (Cozaar) 75 mg PO DAILY [facility] Last Admin: 01/17/18 08:26 Dose: 75 mg Losartan Potassium (Cozaar) 100 mg PO DAILY [facility] Last Admin: 02/16/18 08:24 Dose: 100 mg Magnesium Hydroxide (Milk Of Magnesia) 30 ml PO DAILY PRN PRN Reason: Constipation Last Admin: 10/26/17 09:10 Dose: 30 ml Melatonin (Melatonin) 6 mg PO BEDTIME [facility] Metoprolol Tartrate (Lopressor) 50 mg PO BID [facility] Last Admin: 02/15/18 08:51 Dose: 50 mg Multivitamins/Minerals (Centrum) 1 tab PO DAILY [facility] Last Admin: 12/20/17 08:03 Dose: 1 tab Multivitamins/Minerals (Centrum) 1 tab PO DAILY@1200 [facility] Last Admin: 12/27/17 11:36 Dose: 1 tab Mupirocin (Bactroban Crm) 1 gm TOP TID [facility] Last Admin: 10/29/17 11:29 Dose: Not Given Mupirocin (Bactroban Oint) 0 gm TOP DAILY [facility] Last Admin: 12/06/17 10:12 Dose: 1 applic Naloxegol (Movantik) 25 mg PO DAILY [facility] Last Admin: 02/16/18 08:22 Dose: 25 mg Insulin Degludec ( (Tresiba) 44units) 44 units SUBCUT DAILY [facility] Nystatin (Nystop) 0 gm TOP BID [facility] Last Admin: 10/25/17 08:58 Dose: 1 applic Nystatin (Nystop) 0 gm TOP TID [facility] Last Admin: 10/26/17 11:15 Dose: Not Given Nystatin (Nystatin Ointment) 0 gm TOP TID [facility] Last Admin: 11/04/17 15:49 Dose: Not Given Nystatin (Nystatin Ointment) 1 gm TOP DAILY PRN PRN Reason: Rash Last Admin: 12/26/17 08:19 Dose: 1 applic Nystatin (Nystatin Ointment) 1 gm TOP BID [facility] Last Admin: 01/01/18 09:12 Dose: Not Given Nystatin (Nystatin Ointment) 1 gm TOP BID PRN PRN Reason: Rash Nystatin (Nystatin Ointment) 0 gm TOP BID PRN PRN Reason: Rash Olanzapine (Zyprexa) 10 mg PO ASDIRECTED [facility] Olanzapine (Zyprexa) 10 mg PO BEDTIME [facility] Stop: 11/14/17 21:01 Last Admin: 11/14/17 21:28 Dose: 10 mg Olanzapine (Zyprexa) 10 mg PO BEDTIME [facility] Stop: 11/22/17 21:01 Last Admin: 11/22/17 21:41 Dose: 10 mg Omeprazole (Omeprazole) 20 mg PO SUTUTHSA@2100 [facility] Last Admin: 10/23/17 21:24 Dose: 20 mg Omeprazole (Omeprazole) 20 mg PO DAILY@2100 [facility] Last Admin: 12/11/17 20:18 Dose: 20 mg Omeprazole (Omeprazole) 20 mg PO BID [facility] Last Admin: 12/13/17 09:27 Dose: 20 mg Omeprazole (Omeprazole) 20 mg PO BIDAC [facility] Last Admin: 12/17/17 16:45 Dose: 20 mg Omeprazole (Omeprazole) 20 mg PO DAILY@0600,1700 [facility] Last Admin: 01/20/18 06:27 Dose: 20 mg Omeprazole (Omeprazole) 20 mg PO BID@0600,1700 [facility] Last Admin: 02/15/18 06:44 Dose: 20 mg Ondansetron HCl (Zofran Odt) 8 mg PO TID PRN PRN Reason: nausea or vomitting Last Admin: 01/26/18 17:53 Dose: 8 mg Oxycodone HCl (Oxycodone) 5 mg PO Q6H [facility] Last Admin: 10/23/17 06:11 Dose: 5 mg Oxycodone HCl (Oxycodone) 5 mg PO Q6H [facility] Last Admin: 10/24/17 06:21 Dose: Not Given Oxycodone HCl (Oxycodone) 5 mg PO Q6H PRN PRN Reason: Pain Last Admin: 02/14/18 13:38 Dose: 5 mg Oxycodone HCl (Oxycodone) 5 mg PO BEDTIME [facility] Last Admin: 12/07/17 20:02 Dose: 5 mg Oxycodone HCl (Oxycodone) 5 mg PO ONETIME ONE Stop: 11/23/17 18:12 Last Admin: 11/23/17 18:48 Dose: 5 mg Oxycodone HCl (Oxycodone) 7.5 mg PO BEDTIME [facility] Stop: 12/13/17 23:00 Last Admin: 12/13/17 20:05 Dose: 7.5 mg Oxycodone HCl (Oxycodone) 5 mg PO ONETIME ONE Stop: 12/13/17 17:59 Last Admin: 12/13/17 18:21 Dose: 5 mg Oxycodone HCl (Oxycontin) 10 mg PO Q12H [facility] Last Admin: 02/16/18 08:22 Dose: 10 mg Oxycodone HCl (Oxycontin) Confirm Administered Dose 10 mg .ROUTE .STK-MED ONE Stop: 12/31/17 11:25 Last Admin: 12/31/17 11:26 Dose: 10 mg Amlodipine 5 Mg Tab 5 each PO DAILY [facility] Last Admin: 03/07/18 08:22 Dose: 5 each Polysaccharide Iron Complex (Ferrex 150) 150 mg PO DAILY [facility] Last Admin: 12/20/17 08:05 Dose: 150 mg Polysaccharide Iron Complex (Ferrex 150) 150 mg PO DAILY@1200 [facility] Last Admin: 12/27/17 11:36 Dose: 150 mg Polysaccharide Iron Complex (Ferrex 150) 150 mg PO DAILY [facility] Last Admin: 02/09/18 08:17 Dose: 150 mg Polysaccharide Iron Complex (Ferrex 150) 150 mg PO Q48H [facility] Last Admin: 02/09/18 11:46 Dose: Not Given Prochlorperazine Maleate (Compazine) 10 mg PO QID PRN PRN Reason: Nausea Prochlorperazine Maleate (Compazine) 10 mg PO QID PRN PRN Reason: Nausea Last Admin: 01/16/18 20:25 Dose: 10 mg Ramelteon (Rozerem) 8 mg PO BEDTIME [facility] Last Admin: 02/16/18 22:33 Dose: 8 mg Senna/Docusate Sodium (Senna Plus) 1 tab PO BID PRN PRN Reason: Constipation Last Admin: 10/28/17 08:08 Dose: 1 tab Senna/Docusate Sodium (Senna Plus) 1 tab PO BID [facility] Last Admin: 11/04/17 15:49 Dose: Not Given Senna/Docusate Sodium (Senna Plus) 1 - 2 tab PO DAILY PRN PRN Reason: Constipation Sertraline HCl (Zoloft) 100 mg PO BEDTIME [facility] Last Admin: 01/07/18 20:58 Dose: 100 mg Sertraline HCl (Zoloft) 150 mg PO BEDTIME [facility] Last Admin: 02/14/18 20:02 Dose: 150 mg Simvastatin (Zocor) 40 mg PO BEDTIME [facility] Last Admin: 02/14/18 20:03 Dose: 40 mg Sodium Chloride ([place] Nasal [place]) 1 ml ALDO QID PRN PRN Reason: Dryness Last Admin: 11/12/17 21:03 Dose: 1 spray Sodium Chloride (Normal Saline) 20 ml FLUSH ASDIRECTED PRN PRN Reason: Other Sodium Chloride (Saline Flush) 20 ml FLUSH Q8H [facility] Last Admin: 11/02/17 10:46 Dose: Not Given Sodium Chloride (Saline Flush) 20 ml FLUSH Q8H [facility] Last Admin: 11/11/17 12:20 Dose: Not Given Zinc Gluconate (Zinc) 50 mg PO DAILY [facility] Last Admin: 12/20/17 08:05 Dose: 50 mg Zinc Gluconate (Zinc) 50 mg PO DAILY@1200 [facility] Last Admin: 12/27/17 11:35 Dose: 50 mg - Exam Quality Assessment: Skin Breakdown (sacral decubitus breakdown Present on admission). No: Supplemental Oxygen General: Alert, Oriented, Cooperative, No Acute Distress Neck: Supple Lungs: Clear to Auscultation, Normal Respiratory Effort Cardiovascular: Regular Rate, Regular Rhythm GI/Abdominal Exam: Soft, No Distention Back Exam: No: CVA Tenderness (L), CVA Tenderness (R) Extremities: No Pedal Edema Skin: Other (Healing sacral decubitus) Wound/Incisions: Healing Well Neurological: No New Focal Deficit Psy/Mental Status: Alert, Normal Affect, Normal Mood - Problem List Review Problem List Initiated/Reviewed/Updated: Yes - Plan Plan:: HPI: This is a 76 year old female who had previously been in swing bed status due to a left humeral fracture and deconditioning. The patient has been recently diagnosed with peritoneal carcinomatosis. The patient was sent up to [facility] on 10/20/17 for abdominal paracentesis and pleurx catheter placement. She had labs done that day which showed a hemoglobin of 6.5. She was then admitted to their hospitalist services. She was given 2 units of PRBCs. She was due for her second cycle of carboplatin and taxol while there and this was completed on 10/21/17. She was also given Neulasta prior to discharge. The patient was admitted back to swing bed status for rehabilitation of her fracture and deconditioning. PRIMARY ASSESSMENT/PLAN: Left humeral head fracture. Patient with periodic pain however mainly on movement. She does have significant limitations in her left arm with almost no ability to abduct. She is continue to work with physical therapy. Continue with ROM and strengthening. 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 Progressive healing continues. Has had 2 cm tracking superiorly however overall wound is shrinking. Physical therapy performing wound packing. Deconditioning. Continue physical therapy Immunocompromised host. No fever no infectious process. Malignant ascites. PleurX catheter clogged. Unsuccessful attempt upon removing. Anemia due to antineoplastic chemotherapy. Os recent hemoglobin Hgb stable at 12.3. Reassess Anxiety, situational, doing very well she did not need Xanax at recent wedding. Much improved affect SECONDARY ASSESSMENT/PLAN: Primary peritoneal carcinomatosis. Followed by Dr. Collier/oncology with ongoing Pleurx abdominal drain however is clogged. History of endometrial cancer, s/p hysterceomty 2010. CAD, no ischemic picture, stable. HTN. Continue lopressor and losartan and Norvasc 5 mg Aortic stenosis. History of atrial flutter. Type 2 DM. Adequate fasting Accuchecks daily. Tresiba switched to levemir daily due to not being available in house. 42 units CKD stage 3. Creatinine 1.03 acceptable Hyperlipidemia. Continue simvastatin. Obesity. Gout. Continue allopurinol 100 mg daily. Diabetic retinopathy. Depression. Continue zoloft. GERD. Continue omeprazole. OAB. Osteoarthritis. History of hypercalcemia. Recent Hypoalbuminemia. DVT prophylaxis. Score of 6, Continue with phan stockings. Overall plan: Continue an SNF with PT. Continue with physical therapy with left humeral exercises and wound care and packing. Long discussion with patient and family for possible revisiting oncology. Communicated with Dr. Collier he is willing to see patient outpatient. Referral placed. Will get repeat abdominal CT scan.
[2018-03-11] MEDS: oxyCODONE ER 10 MG TAB.ER PO SCH ×2 (08:43→20:25)
[2018-03-11] MEDS: Aspirin 81 MG Tab.EC PO SCH (20:23)
[2018-03-11] MEDS: Sertraline 100 MG Tab PO SCH (20:25)
[2018-03-11] MEDS: Simvastatin 20 MG Tab PO SCH (20:26)
[2018-03-11] MEDS: ROZEREM 8 MG PO SCH (20:26)
[2018-03-12] MEDS: Acetaminophen 500 MG Tab PO SCH ×5 (00:13→23:45)
[2018-03-12] MEDS: Omeprazole 20 MG Cap.CR PO SCH ×2 (06:10→17:41)
[2018-03-12] MEDS: Furosemide 20 MG Tab PO SCH ×3 (06:10→15:17)
[2018-03-12] MEDS: Multivitamins with Minerals/Iron/Folic Acid/Lycopene Tab PO SCH (08:51)
[2018-03-12] MEDS: oxyCODONE ER 10 MG TAB.ER PO SCH ×2 (08:51→20:08)
[2018-03-12] MEDS: Zinc (Zinc Gluconate) 50 MG Tab PO SCH (08:52)
[2018-03-12] MEDS: Metoprolol Tartrate 100 MG Tab PO SCH ×2 (08:52→20:08)
[2018-03-12] MEDS: Docusate Sodium 100 MG Cap PO SCH (08:52)
[2018-03-12] MEDS: Insulin Detemir 100 Units/ML 3 ML Pen SUBCUT SCH (08:52)
[2018-03-12] MEDS: Losartan 100 MG Tab PO SCH (08:52)
[2018-03-12] MEDS: amLODIPine 5 MG Tab PO SCH (08:53)
[2018-03-12] MEDS: buPROPion 150 MG Tab.ER PO SCH (08:53)
[2018-03-12] MEDS: Allopurinol 100 MG Tab PO SCH (08:53)
[2018-03-12] MEDS: Naloxegol Oxalate 25 MG Tab PO SCH (08:53)
[2018-03-12] MEDS: Aspirin 81 MG Tab.EC PO SCH (20:07)
[2018-03-12] MEDS: ROZEREM 8 MG PO SCH (20:08)
[2018-03-12] MEDS: Sertraline 100 MG Tab PO SCH (20:08)
[2018-03-12] MEDS: Simvastatin 20 MG Tab PO SCH (20:08)
[2018-03-13] MEDS: Furosemide 20 MG Tab PO SCH ×2 (06:25→14:18)
[2018-03-13] MEDS: Omeprazole 20 MG Cap.CR PO SCH ×2 (06:25→17:11)
[2018-03-13] MEDS: Acetaminophen 500 MG Tab PO SCH ×3 (06:25→22:21)
[2018-03-13] MEDS: oxyCODONE ER 10 MG TAB.ER PO SCH ×2 (08:34→20:03)
[2018-03-13] MEDS: Zinc (Zinc Gluconate) 50 MG Tab PO SCH (08:34)
[2018-03-13] MEDS: Multivitamins with Minerals/Iron/Folic Acid/Lycopene Tab PO SCH (08:34)
[2018-03-13] MEDS: Docusate Sodium 100 MG Cap PO SCH (08:34)
[2018-03-13] MEDS: Metoprolol Tartrate 100 MG Tab PO SCH ×2 (08:34→20:03)
[2018-03-13] MEDS: Iron Polysaccharides Complex 150 MG Cap PO SCH (08:34)
[2018-03-13] MEDS: Allopurinol 100 MG Tab PO SCH (08:34)
[2018-03-13] MEDS: Insulin Detemir 100 Units/ML 3 ML Pen SUBCUT SCH (08:35)
[2018-03-13] MEDS: amLODIPine 5 MG Tab PO SCH (08:36)
[2018-03-13] MEDS: Losartan 100 MG Tab PO SCH (08:36)
[2018-03-13] MEDS: buPROPion 150 MG Tab.ER PO SCH (08:36)
[2018-03-13] MEDS: Naloxegol Oxalate 25 MG Tab PO SCH (08:36)
[2018-03-13] MEDS: Aspirin 81 MG Tab.EC PO SCH (20:03)
[2018-03-13] MEDS: ROZEREM 8 MG PO SCH (20:03)
[2018-03-13] MEDS: Sertraline 100 MG Tab PO SCH (20:04)
[2018-03-13] MEDS: Simvastatin 20 MG Tab PO SCH (20:04)
[2018-03-14] MEDS: Omeprazole 20 MG Cap.CR PO SCH ×2 (06:51→17:02)
[2018-03-14] MEDS: Acetaminophen 500 MG Tab PO SCH ×2 (06:51→17:01)
[2018-03-14] MEDS: Furosemide 20 MG Tab PO SCH (06:51)
[2018-03-14] MEDS: oxyCODONE ER 10 MG TAB.ER PO SCH ×2 (09:26→20:29)
[2018-03-14] MEDS: Insulin Detemir 100 Units/ML 3 ML Pen SUBCUT SCH (09:26)
[2018-03-14] MEDS: Docusate Sodium 100 MG Cap PO SCH (09:28)
[2018-03-14] MEDS: Zinc (Zinc Gluconate) 50 MG Tab PO SCH (09:28)
[2018-03-14] MEDS: Multivitamins with Minerals/Iron/Folic Acid/Lycopene Tab PO SCH (09:28)
[2018-03-14] MEDS: Losartan 100 MG Tab PO SCH (09:29)
[2018-03-14] MEDS: Naloxegol Oxalate 25 MG Tab PO SCH (09:29)
[2018-03-14] MEDS: Metoprolol Tartrate 100 MG Tab PO SCH ×2 (09:30→20:28)
[2018-03-14] MEDS: Allopurinol 100 MG Tab PO SCH (09:31)
[2018-03-14] MEDS: buPROPion 150 MG Tab.ER PO SCH (09:31)
[2018-03-14] MEDS: amLODIPine 5 MG Tab PO SCH (09:32)
[2018-03-14] MEDS: oxyCODONE 5 MG Tab PO PRN (12:32)
[2018-03-14] MEDS: Aspirin 81 MG Tab.EC PO SCH (20:27)
[2018-03-14] MEDS: ROZEREM 8 MG PO SCH (20:29)
[2018-03-14] MEDS: Sertraline 100 MG Tab PO SCH (20:30)
[2018-03-14] MEDS: Simvastatin 20 MG Tab PO SCH (20:30)
[2018-03-15] MEDS: Acetaminophen 500 MG Tab PO SCH ×4 (00:12→23:45)
[2018-03-15] MEDS: Omeprazole 20 MG Cap.CR PO SCH ×2 (05:54→17:09)
[2018-03-15] MEDS: Furosemide 20 MG Tab PO SCH ×2 (06:29→15:40)
[2018-03-15] MEDS: Iron Polysaccharides Complex 150 MG Cap PO SCH (08:20)
[2018-03-15] MEDS: Docusate Sodium 100 MG Cap PO SCH (08:20)
[2018-03-15] MEDS: Zinc (Zinc Gluconate) 50 MG Tab PO SCH (08:20)
[2018-03-15] MEDS: Multivitamins with Minerals/Iron/Folic Acid/Lycopene Tab PO SCH (08:20)
[2018-03-15] MEDS: Naloxegol Oxalate 25 MG Tab PO SCH (08:21)
[2018-03-15] MEDS: Losartan 100 MG Tab PO SCH (08:21)
[2018-03-15] MEDS: buPROPion 150 MG Tab.ER PO SCH (08:22)
[2018-03-15] MEDS: amLODIPine 5 MG Tab PO SCH (08:22)
[2018-03-15] MEDS: Allopurinol 100 MG Tab PO SCH (08:22)
[2018-03-15] MEDS: Metoprolol Tartrate 100 MG Tab PO SCH ×2 (08:22→20:16)
[2018-03-15] MEDS: Insulin Detemir 100 Units/ML 3 ML Pen SUBCUT SCH (08:28)
[2018-03-15] MEDS: oxyCODONE ER 10 MG TAB.ER PO SCH ×2 (08:28→20:16)
[2018-03-15] MEDS: NYSTATIN TOP PRN ×2 (09:32→20:18)
[2018-03-15] MEDS: oxyCODONE 5 MG Tab PO PRN (13:07)
[2018-03-15] MEDS: ROZEREM 8 MG PO SCH (20:16)
[2018-03-15] MEDS: Aspirin 81 MG Tab.EC PO SCH (20:16)
[2018-03-15] MEDS: Simvastatin 20 MG Tab PO SCH (20:16)
[2018-03-15] MEDS: Sertraline 100 MG Tab PO SCH (20:16)
[2018-03-16] MEDS: Acetaminophen 500 MG Tab PO SCH ×3 (06:04→22:00)
[2018-03-16] MEDS: Furosemide 20 MG Tab PO SCH (06:05)
[2018-03-16] MEDS: Omeprazole 20 MG Cap.CR PO SCH ×2 (06:05→17:54)
[2018-03-16] MEDS: Docusate Sodium 100 MG Cap PO SCH (08:48)
[2018-03-16] MEDS: Multivitamins with Minerals/Iron/Folic Acid/Lycopene Tab PO SCH (08:49)
[2018-03-16] MEDS: Zinc (Zinc Gluconate) 50 MG Tab PO SCH (08:49)
[2018-03-16] MEDS: Allopurinol 100 MG Tab PO SCH (08:50)
[2018-03-16] MEDS: Naloxegol Oxalate 25 MG Tab PO SCH (08:50)
[2018-03-16] MEDS: buPROPion 150 MG Tab.ER PO SCH (08:50)
[2018-03-16] MEDS: Insulin Detemir 100 Units/ML 3 ML Pen SUBCUT SCH (08:51)
[2018-03-16] MEDS: NYSTATIN TOP PRN ×2 (08:52→20:02)
[2018-03-16] MEDS: amLODIPine 5 MG Tab PO SCH (08:56)
[2018-03-16] MEDS: Losartan 100 MG Tab PO SCH (08:56)
[2018-03-16] MEDS: Metoprolol Tartrate 100 MG Tab PO SCH ×2 (08:57→20:00)
[2018-03-16] MEDS: oxyCODONE ER 10 MG TAB.ER PO SCH ×2 (09:30→20:00)
[2018-03-16] MEDS: Aspirin 81 MG Tab.EC PO SCH (19:59)
[2018-03-16] MEDS: Simvastatin 20 MG Tab PO SCH (20:01)
[2018-03-16] MEDS: ROZEREM 8 MG PO SCH (20:01)
[2018-03-16] MEDS: Sertraline 100 MG Tab PO SCH (20:01)
[2018-03-17] MEDS: Omeprazole 20 MG Cap.CR PO SCH ×2 (05:30→16:55)
[2018-03-17] MEDS: Acetaminophen 500 MG Tab PO SCH ×3 (06:13→22:09)
[2018-03-17] MEDS: Furosemide 20 MG Tab PO SCH ×2 (06:13→14:33)
[2018-03-17] MEDS: oxyCODONE ER 10 MG TAB.ER PO SCH ×2 (09:00→20:11)
[2018-03-17] MEDS: Insulin Detemir 100 Units/ML 3 ML Pen SUBCUT SCH (09:00)
[2018-03-17] MEDS: buPROPion 150 MG Tab.ER PO SCH (09:01)
[2018-03-17] MEDS: Allopurinol 100 MG Tab PO SCH (09:02)
[2018-03-17] MEDS: Zinc (Zinc Gluconate) 50 MG Tab PO SCH (09:02)
[2018-03-17] MEDS: Iron Polysaccharides Complex 150 MG Cap PO SCH (09:02)
[2018-03-17] MEDS: Multivitamins with Minerals/Iron/Folic Acid/Lycopene Tab PO SCH (09:03)
[2018-03-17] MEDS: Docusate Sodium 100 MG Cap PO SCH (09:03)
[2018-03-17] MEDS: Metoprolol Tartrate 100 MG Tab PO SCH ×2 (09:06→20:09)
[2018-03-17] MEDS: Naloxegol Oxalate 25 MG Tab PO SCH (09:07)
[2018-03-17] MEDS: Losartan 100 MG Tab PO SCH (09:07)
[2018-03-17] MEDS: amLODIPine 5 MG Tab PO SCH (09:07)
[2018-03-17] MEDS: NYSTATIN TOP PRN ×2 (09:08→20:13)
[2018-03-17] MEDS: Sertraline 100 MG Tab PO SCH (20:10)
[2018-03-17] MEDS: Simvastatin 20 MG Tab PO SCH (20:10)
[2018-03-17] MEDS: ROZEREM 8 MG PO SCH (20:10)
[2018-03-17] MEDS: Aspirin 81 MG Tab.EC PO SCH (20:11)
[2018-03-18] MEDS: Acetaminophen 500 MG Tab PO SCH ×3 (06:20→23:55)
[2018-03-18] MEDS: Furosemide 20 MG Tab PO SCH (06:20)
[2018-03-18] MEDS: Omeprazole 20 MG Cap.CR PO SCH ×2 (06:32→17:17)
[2018-03-18] MEDS: Metoprolol Tartrate 100 MG Tab PO SCH ×2 (08:38→21:14)
[2018-03-18] MEDS: Allopurinol 100 MG Tab PO SCH (08:38)
[2018-03-18] MEDS: Naloxegol Oxalate 25 MG Tab PO SCH (08:39)
[2018-03-18] MEDS: buPROPion 150 MG Tab.ER PO SCH (08:39)
[2018-03-18] MEDS: amLODIPine 5 MG Tab PO SCH (08:39)
[2018-03-18] MEDS: Insulin Detemir 100 Units/ML 3 ML Pen SUBCUT SCH (08:40)
[2018-03-18] MEDS: Losartan 100 MG Tab PO SCH (08:40)
[2018-03-18] MEDS: Zinc (Zinc Gluconate) 50 MG Tab PO SCH (08:41)
[2018-03-18] MEDS: Multivitamins with Minerals/Iron/Folic Acid/Lycopene Tab PO SCH (08:41)
[2018-03-18] MEDS: oxyCODONE ER 10 MG TAB.ER PO SCH ×2 (08:41→21:15)
[2018-03-18] MEDS: Docusate Sodium 100 MG Cap PO SCH (08:41)
[2018-03-18] MEDS: NYSTATIN TOP PRN (08:46)
[2018-03-18 11:32] LABS: ANION GAP 13.2 mmol/L (5-15)
[2018-03-18] MEDS: Sertraline 100 MG Tab PO SCH (21:13)
[2018-03-18] MEDS: Aspirin 81 MG Tab.EC PO SCH (21:13)
[2018-03-18] MEDS: ROZEREM 8 MG PO SCH (21:14)
[2018-03-18] MEDS: Simvastatin 20 MG Tab PO SCH (21:14)
[2018-03-19] MEDS: Furosemide 20 MG Tab PO SCH ×2 (06:03→14:55)
[2018-03-19] MEDS: Acetaminophen 500 MG Tab PO SCH ×3 (06:03→23:50)
[2018-03-19] MEDS: Omeprazole 20 MG Cap.CR PO SCH ×2 (06:05→17:23)
[2018-03-19] MEDS: Simethicone 80 MG Tab.Chew PO PRN (07:22)
[2018-03-19] MEDS: Multivitamins with Minerals/Iron/Folic Acid/Lycopene Tab PO SCH (09:20)
[2018-03-19] MEDS: Iron Polysaccharides Complex 150 MG Cap PO SCH (09:21)
[2018-03-19] MEDS: Zinc (Zinc Gluconate) 50 MG Tab PO SCH (09:21)
[2018-03-19] MEDS: Docusate Sodium 100 MG Cap PO SCH (09:21)
[2018-03-19] MEDS: amLODIPine 5 MG Tab PO SCH (09:22)
[2018-03-19] MEDS: Allopurinol 100 MG Tab PO SCH (09:22)
[2018-03-19] MEDS: oxyCODONE ER 10 MG TAB.ER PO SCH ×2 (09:22→20:49)
[2018-03-19] MEDS: Metoprolol Tartrate 100 MG Tab PO SCH ×2 (09:23→20:50)
[2018-03-19] MEDS: Naloxegol Oxalate 25 MG Tab PO SCH (09:23)
[2018-03-19] MEDS: buPROPion 150 MG Tab.ER PO SCH (09:23)
[2018-03-19] MEDS: Losartan 100 MG Tab PO SCH (09:23)
[2018-03-19] MEDS: Insulin Detemir 100 Units/ML 3 ML Pen SUBCUT SCH (09:24)
[2018-03-19] MEDS: Ondansetron 4 MG Tab PO PRN (10:23)
[2018-03-19] MEDS: NYSTATIN TOP PRN (10:24)
[2018-03-19] MEDS: Sertraline 100 MG Tab PO SCH (20:49)
[2018-03-19] MEDS: Aspirin 81 MG Tab.EC PO SCH (20:49)
[2018-03-19] MEDS: Simvastatin 20 MG Tab PO SCH (20:50)
[2018-03-19] MEDS: ROZEREM 8 MG PO SCH (20:50)
[2018-03-20] MEDS: Acetaminophen 500 MG Tab PO SCH ×3 (06:05→23:58)
[2018-03-20] MEDS: Furosemide 20 MG Tab PO SCH ×2 (06:06→15:42)
[2018-03-20] MEDS: Omeprazole 20 MG Cap.CR PO SCH ×2 (06:06→17:01)
[2018-03-20] MEDS: Docusate Sodium 100 MG Cap PO SCH (08:51)
[2018-03-20] MEDS: Multivitamins with Minerals/Iron/Folic Acid/Lycopene Tab PO SCH (08:51)
[2018-03-20] MEDS: amLODIPine 5 MG Tab PO SCH (08:52)
[2018-03-20] MEDS: Allopurinol 100 MG Tab PO SCH (08:52)
[2018-03-20] MEDS: buPROPion 150 MG Tab.ER PO SCH (08:53)
[2018-03-20] MEDS: Insulin Detemir 100 Units/ML 3 ML Pen SUBCUT SCH (08:55)
[2018-03-20] MEDS: Losartan 100 MG Tab PO SCH (08:55)
[2018-03-20] MEDS: Naloxegol Oxalate 25 MG Tab PO SCH (08:56)
[2018-03-20] MEDS: oxyCODONE ER 10 MG TAB.ER PO SCH ×2 (08:56→21:05)
[2018-03-20] MEDS: Zinc (Zinc Gluconate) 50 MG Tab PO SCH (08:56)
[2018-03-20] MEDS: Metoprolol Tartrate 100 MG Tab PO SCH ×2 (08:58→21:06)
[2018-03-20] MEDS: ROZEREM 8 MG PO SCH (21:05)
[2018-03-20] MEDS: Aspirin 81 MG Tab.EC PO SCH (21:05)
[2018-03-20] MEDS: Sertraline 100 MG Tab PO SCH (21:06)
[2018-03-20] MEDS: Simvastatin 20 MG Tab PO SCH (21:06)
[2018-03-21] MEDS: Furosemide 20 MG Tab PO SCH (06:10)
[2018-03-21] MEDS: Omeprazole 20 MG Cap.CR PO SCH ×2 (06:10→17:09)
[2018-03-21] MEDS: Acetaminophen 500 MG Tab PO SCH ×3 (06:10→23:45)
[2018-03-21] MEDS: amLODIPine 5 MG Tab PO SCH (08:19)
[2018-03-21] MEDS: NYSTATIN TOP PRN ×2 (08:19→20:08)
[2018-03-21] MEDS: oxyCODONE ER 10 MG TAB.ER PO SCH ×2 (08:19→20:08)
[2018-03-21] MEDS: buPROPion 150 MG Tab.ER PO SCH (08:19)
[2018-03-21] MEDS: Losartan 100 MG Tab PO SCH (08:20)
[2018-03-21] MEDS: Metoprolol Tartrate 100 MG Tab PO SCH ×2 (08:20→20:08)
[2018-03-21] MEDS: Allopurinol 100 MG Tab PO SCH (08:20)
[2018-03-21] MEDS: Naloxegol Oxalate 25 MG Tab PO SCH (08:20)
[2018-03-21] MEDS: Zinc (Zinc Gluconate) 50 MG Tab PO SCH (08:21)
[2018-03-21] MEDS: Insulin Detemir 100 Units/ML 3 ML Pen SUBCUT SCH (08:21)
[2018-03-21] MEDS: Docusate Sodium 100 MG Cap PO SCH (08:22)
[2018-03-21] MEDS: Iron Polysaccharides Complex 150 MG Cap PO SCH (08:22)
[2018-03-21] MEDS: Multivitamins with Minerals/Iron/Folic Acid/Lycopene Tab PO SCH (08:22)
[2018-03-21] MEDS: Sertraline 100 MG Tab PO SCH (20:08)
[2018-03-21] MEDS: ROZEREM 8 MG PO SCH (20:08)
[2018-03-21] MEDS: Simvastatin 20 MG Tab PO SCH (20:08)
[2018-03-21] MEDS: Aspirin 81 MG Tab.EC PO SCH (20:08)
[2018-03-22] MEDS: Acetaminophen 500 MG Tab PO SCH ×3 (06:32→23:50)
[2018-03-22] MEDS: Omeprazole 20 MG Cap.CR PO SCH ×2 (06:33→16:10)
[2018-03-22] MEDS: Furosemide 20 MG Tab PO SCH ×2 (06:33→16:08)
[2018-03-22] MEDS: Multivitamins with Minerals/Iron/Folic Acid/Lycopene Tab PO SCH (08:01)
[2018-03-22] MEDS: Docusate Sodium 100 MG Cap PO SCH (08:01)
[2018-03-22] MEDS: Allopurinol 100 MG Tab PO SCH (08:02)
[2018-03-22] MEDS: amLODIPine 5 MG Tab PO SCH (08:02)
[2018-03-22] MEDS: Losartan 100 MG Tab PO SCH (08:03)
[2018-03-22] MEDS: buPROPion 150 MG Tab.ER PO SCH (08:03)
[2018-03-22] MEDS: Metoprolol Tartrate 100 MG Tab PO SCH ×2 (08:04→20:06)
[2018-03-22] MEDS: Naloxegol Oxalate 25 MG Tab PO SCH (08:04)
[2018-03-22] MEDS: oxyCODONE ER 10 MG TAB.ER PO SCH ×2 (08:05→20:06)
[2018-03-22] MEDS: Zinc (Zinc Gluconate) 50 MG Tab PO SCH (08:05)
[2018-03-22] MEDS: Insulin Detemir 100 Units/ML 3 ML Pen SUBCUT SCH (08:10)
[2018-03-22] MEDS: ROZEREM 8 MG PO SCH (20:06)
[2018-03-22] MEDS: Sertraline 100 MG Tab PO SCH (20:06)
[2018-03-22] MEDS: Simvastatin 20 MG Tab PO SCH (20:06)
[2018-03-22] MEDS: Aspirin 81 MG Tab.EC PO SCH (20:06)
[2018-03-23] MEDS: Acetaminophen 500 MG Tab PO SCH ×3 (06:42→23:50)
[2018-03-23] MEDS: Omeprazole 20 MG Cap.CR PO SCH ×2 (06:43→17:05)
[2018-03-23] MEDS: Furosemide 20 MG Tab PO SCH (06:43)
[2018-03-23] MEDS: Multivitamins with Minerals/Iron/Folic Acid/Lycopene Tab PO SCH (08:32)
[2018-03-23] MEDS: Docusate Sodium 100 MG Cap PO SCH (08:32)
[2018-03-23] MEDS: Zinc (Zinc Gluconate) 50 MG Tab PO SCH (08:32)
[2018-03-23] MEDS: Iron Polysaccharides Complex 150 MG Cap PO SCH (08:32)
[2018-03-23] MEDS: NYSTATIN TOP PRN (08:33)
[2018-03-23] MEDS: Insulin Detemir 100 Units/ML 3 ML Pen SUBCUT SCH (08:33)
[2018-03-23] MEDS: Losartan 100 MG Tab PO SCH (08:34)
[2018-03-23] MEDS: amLODIPine 5 MG Tab PO SCH (08:34)
[2018-03-23] MEDS: Allopurinol 100 MG Tab PO SCH (08:34)
[2018-03-23] MEDS: Naloxegol Oxalate 25 MG Tab PO SCH (08:34)
[2018-03-23] MEDS: buPROPion 150 MG Tab.ER PO SCH (08:34)
[2018-03-23] MEDS: Metoprolol Tartrate 100 MG Tab PO SCH ×2 (08:34→21:43)
[2018-03-23] MEDS: oxyCODONE 5 MG Tab PO PRN (09:31)
[2018-03-23] MEDS: oxyCODONE ER 10 MG TAB.ER PO SCH ×2 (09:31→21:42)
[2018-03-23] MEDS: ROZEREM 8 MG PO SCH (21:43)
[2018-03-23] MEDS: Aspirin 81 MG Tab.EC PO SCH (21:43)
[2018-03-23] MEDS: Simvastatin 20 MG Tab PO SCH (21:43)
[2018-03-23] MEDS: Sertraline 100 MG Tab PO SCH (21:44)
[2018-03-24] MEDS: Acetaminophen 500 MG Tab PO SCH ×3 (06:00→23:15)
[2018-03-24] MEDS: Omeprazole 20 MG Cap.CR PO SCH ×2 (06:01→16:19)
[2018-03-24] MEDS: Furosemide 20 MG Tab PO SCH ×2 (06:01→16:19)
[2018-03-24] MEDS: Insulin Detemir 100 Units/ML 3 ML Pen SUBCUT SCH (08:57)
[2018-03-24] MEDS: oxyCODONE ER 10 MG TAB.ER PO SCH ×2 (08:57→21:02)
[2018-03-24] MEDS: NYSTATIN TOP PRN ×2 (08:58→21:05)
[2018-03-24] MEDS: Metoprolol Tartrate 100 MG Tab PO SCH ×2 (08:59→21:06)
[2018-03-24] MEDS: Allopurinol 100 MG Tab PO SCH (08:59)
[2018-03-24] MEDS: buPROPion 150 MG Tab.ER PO SCH (08:59)
[2018-03-24] MEDS: amLODIPine 5 MG Tab PO SCH (09:00)
[2018-03-24] MEDS: Losartan 100 MG Tab PO SCH (09:00)
[2018-03-24] MEDS: Naloxegol Oxalate 25 MG Tab PO SCH (09:00)
[2018-03-24] MEDS: Multivitamins with Minerals/Iron/Folic Acid/Lycopene Tab PO SCH (09:01)
[2018-03-24] MEDS: Zinc (Zinc Gluconate) 50 MG Tab PO SCH (09:02)
[2018-03-24] MEDS: Docusate Sodium 100 MG Cap PO SCH (09:02)
[2018-03-24] MEDS: Ondansetron 4 MG Tab PO PRN (12:00)
[2018-03-24] MEDS: ROZEREM 8 MG PO SCH (21:02)
[2018-03-24] MEDS: Aspirin 81 MG Tab.EC PO SCH (21:02)
[2018-03-24] MEDS: Sertraline 100 MG Tab PO SCH (21:03)
[2018-03-24] MEDS: Simvastatin 20 MG Tab PO SCH (21:03)
[2018-03-25] MEDS: Acetaminophen 500 MG Tab PO SCH ×3 (06:23→23:00)
[2018-03-25] MEDS: Furosemide 20 MG Tab PO SCH (06:24)
[2018-03-25] MEDS: Omeprazole 20 MG Cap.CR PO SCH ×2 (06:24→17:40)
[2018-03-25] MEDS: oxyCODONE ER 10 MG TAB.ER PO SCH ×2 (08:49→20:01)
[2018-03-25] MEDS: Insulin Detemir 100 Units/ML 3 ML Pen SUBCUT SCH (08:49)
[2018-03-25] MEDS: Naloxegol Oxalate 25 MG Tab PO SCH (08:50)
[2018-03-25] MEDS: buPROPion 150 MG Tab.ER PO SCH (08:50)
[2018-03-25] MEDS: Allopurinol 100 MG Tab PO SCH (08:51)
[2018-03-25] MEDS: Metoprolol Tartrate 100 MG Tab PO SCH ×2 (08:54→20:01)
[2018-03-25] MEDS: amLODIPine 5 MG Tab PO SCH (08:54)
[2018-03-25] MEDS: Losartan 100 MG Tab PO SCH (08:54)
[2018-03-25] MEDS: Zinc (Zinc Gluconate) 50 MG Tab PO SCH (08:56)
[2018-03-25] MEDS: Multivitamins with Minerals/Iron/Folic Acid/Lycopene Tab PO SCH (08:56)
[2018-03-25] MEDS: Iron Polysaccharides Complex 150 MG Cap PO SCH (08:56)
[2018-03-25] MEDS: Docusate Sodium 100 MG Cap PO SCH (08:56)
[2018-03-25] MEDS: NYSTATIN TOP PRN (08:57)
[2018-03-25] MEDS: Polyethylene Glycol 3350 Powder 17 GM Packet PO PRN (12:49)
[2018-03-25] MEDS: Aspirin 81 MG Tab.EC PO SCH (20:01)
[2018-03-25] MEDS: ROZEREM 8 MG PO SCH (20:02)
[2018-03-25] MEDS: Simvastatin 20 MG Tab PO SCH (20:02)
[2018-03-25] MEDS: Sertraline 100 MG Tab PO SCH (20:02)
[2018-03-26] MEDS: Acetaminophen 500 MG Tab PO SCH ×3 (06:01→22:31)
[2018-03-26] MEDS: Furosemide 20 MG Tab PO SCH ×2 (06:01→14:58)
[2018-03-26] MEDS: Omeprazole 20 MG Cap.CR PO SCH ×2 (06:01→17:09)
[2018-03-26] MEDS: Zinc (Zinc Gluconate) 50 MG Tab PO SCH (08:50)
[2018-03-26] MEDS: Docusate Sodium 100 MG Cap PO SCH (08:50)
[2018-03-26] MEDS: Multivitamins with Minerals/Iron/Folic Acid/Lycopene Tab PO SCH (08:50)
[2018-03-26] MEDS: Allopurinol 100 MG Tab PO SCH (08:50)
[2018-03-26] MEDS: Losartan 100 MG Tab PO SCH (08:50)
[2018-03-26] MEDS: amLODIPine 5 MG Tab PO SCH (08:50)
[2018-03-26] MEDS: Naloxegol Oxalate 25 MG Tab PO SCH (08:51)
[2018-03-26] MEDS: buPROPion 150 MG Tab.ER PO SCH (08:51)
[2018-03-26] MEDS: Metoprolol Tartrate 100 MG Tab PO SCH ×2 (08:52→20:01)
[2018-03-26] MEDS: Insulin Detemir 100 Units/ML 3 ML Pen SUBCUT SCH (08:53)
[2018-03-26] MEDS: oxyCODONE ER 10 MG TAB.ER PO SCH ×2 (09:57→20:02)
[2018-03-26] MEDS: Polyethylene Glycol 3350 Powder 17 GM Packet PO PRN (14:58)
[2018-03-26] MEDS: Aspirin 81 MG Tab.EC PO SCH (20:01)
[2018-03-26] MEDS: ROZEREM 8 MG PO SCH (20:02)
[2018-03-26] MEDS: Sertraline 100 MG Tab PO SCH (20:02)
[2018-03-26] MEDS: Simvastatin 20 MG Tab PO SCH (20:03)
[2018-03-26] MEDS: NYSTATIN TOP PRN (20:20)
[2018-03-27] MEDS: Acetaminophen 500 MG Tab PO SCH ×3 (06:06→22:16)
[2018-03-27] MEDS: Omeprazole 20 MG Cap.CR PO SCH ×2 (06:06→17:25)
[2018-03-27] MEDS: Furosemide 20 MG Tab PO SCH ×2 (06:06→15:56)
[2018-03-27] MEDS: amLODIPine 5 MG Tab PO SCH (09:51)
[2018-03-27] MEDS: Naloxegol Oxalate 25 MG Tab PO SCH (09:51)
[2018-03-27] MEDS: Losartan 100 MG Tab PO SCH (09:52)
[2018-03-27] MEDS: Allopurinol 100 MG Tab PO SCH (09:52)
[2018-03-27] MEDS: buPROPion 150 MG Tab.ER PO SCH (09:52)
[2018-03-27] MEDS: Insulin Detemir 100 Units/ML 3 ML Pen SUBCUT SCH (09:53)
[2018-03-27] MEDS: Metoprolol Tartrate 100 MG Tab PO SCH ×2 (09:55→20:54)
[2018-03-27] MEDS: oxyCODONE ER 10 MG TAB.ER PO SCH ×2 (09:55→20:54)
[2018-03-27] MEDS: Multivitamins with Minerals/Iron/Folic Acid/Lycopene Tab PO SCH (09:56)
[2018-03-27] MEDS: Iron Polysaccharides Complex 150 MG Cap PO SCH (09:56)
[2018-03-27] MEDS: Docusate Sodium 100 MG Cap PO SCH (09:56)
[2018-03-27] MEDS: Zinc (Zinc Gluconate) 50 MG Tab PO SCH (09:57)
[2018-03-27] MEDS: Aspirin 81 MG Tab.EC PO SCH (20:53)
[2018-03-27] MEDS: ROZEREM 8 MG PO SCH (20:54)
[2018-03-27] MEDS: Sertraline 100 MG Tab PO SCH (20:54)
[2018-03-27] MEDS: Simvastatin 20 MG Tab PO SCH (20:54)
[2018-03-28] MEDS: Acetaminophen 500 MG Tab PO SCH ×3 (06:01→23:21)
[2018-03-28] MEDS: Furosemide 20 MG Tab PO SCH (06:01)
[2018-03-28] MEDS: Omeprazole 20 MG Cap.CR PO SCH ×2 (06:02→18:12)
[2018-03-28] MEDS: Insulin Detemir 100 Units/ML 3 ML Pen SUBCUT SCH (08:08)
[2018-03-28] MEDS: Multivitamins with Minerals/Iron/Folic Acid/Lycopene Tab PO SCH (08:09)
[2018-03-28] MEDS: Docusate Sodium 100 MG Cap PO SCH (08:09)
[2018-03-28] MEDS: Zinc (Zinc Gluconate) 50 MG Tab PO SCH (08:09)
[2018-03-28] MEDS: oxyCODONE ER 10 MG TAB.ER PO SCH ×2 (08:09→20:37)
[2018-03-28] MEDS: buPROPion 150 MG Tab.ER PO SCH (08:11)
[2018-03-28] MEDS: Naloxegol Oxalate 25 MG Tab PO SCH (08:12)
[2018-03-28] MEDS: amLODIPine 5 MG Tab PO SCH (08:12)
[2018-03-28] MEDS: Losartan 100 MG Tab PO SCH (08:14)
[2018-03-28] MEDS: Allopurinol 100 MG Tab PO SCH (08:14)
[2018-03-28] MEDS: Metoprolol Tartrate 100 MG Tab PO SCH ×2 (08:15→20:37)
[2018-03-28] MEDS: Aspirin 81 MG Tab.EC PO SCH (20:37)
[2018-03-28] MEDS: Simvastatin 20 MG Tab PO SCH (20:37)
[2018-03-28] MEDS: Sertraline 100 MG Tab PO SCH (20:37)
[2018-03-28] MEDS: ROZEREM 8 MG PO SCH (20:37)
[2018-03-29] MEDS: Furosemide 20 MG Tab PO SCH ×2 (06:36→14:50)
[2018-03-29] MEDS: Omeprazole 20 MG Cap.CR PO SCH ×2 (06:36→17:25)
[2018-03-29] MEDS: Acetaminophen 500 MG Tab PO SCH ×3 (06:36→22:13)
[2018-03-29] MEDS: oxyCODONE ER 10 MG TAB.ER PO SCH ×2 (09:30→20:14)
[2018-03-29] MEDS: buPROPion 150 MG Tab.ER PO SCH (09:30)
[2018-03-29] MEDS: Allopurinol 100 MG Tab PO SCH (09:30)
[2018-03-29] MEDS: Losartan 100 MG Tab PO SCH (09:31)
[2018-03-29] MEDS: Naloxegol Oxalate 25 MG Tab PO SCH (09:31)
[2018-03-29] MEDS: amLODIPine 5 MG Tab PO SCH (09:31)
[2018-03-29] MEDS: Metoprolol Tartrate 100 MG Tab PO SCH ×2 (09:32→20:15)
[2018-03-29] MEDS: Multivitamins with Minerals/Iron/Folic Acid/Lycopene Tab PO SCH (09:37)
[2018-03-29] MEDS: Zinc (Zinc Gluconate) 50 MG Tab PO SCH (09:37)
[2018-03-29] MEDS: Docusate Sodium 100 MG Cap PO SCH (09:37)
[2018-03-29] MEDS: Insulin Detemir 100 Units/ML 3 ML Pen SUBCUT SCH (09:38)
[2018-03-29] MEDS: Iron Polysaccharides Complex 150 MG Cap PO SCH (09:42)
[2018-03-29] MEDS: Ondansetron 4 MG Tab PO PRN (10:26)
[2018-03-29] MEDS: Aspirin 81 MG Tab.EC PO SCH (20:14)
[2018-03-29] MEDS: Simvastatin 20 MG Tab PO SCH (20:15)
[2018-03-29] MEDS: ROZEREM 8 MG PO SCH (20:15)
[2018-03-29] MEDS: Sertraline 100 MG Tab PO SCH (20:16)
[2018-03-30] MEDS: Furosemide 20 MG Tab PO SCH (06:52)
[2018-03-30] MEDS: Acetaminophen 500 MG Tab PO SCH ×3 (06:52→23:50)
[2018-03-30] MEDS: Omeprazole 20 MG Cap.CR PO SCH ×2 (06:52→16:32)
[2018-03-30] MEDS: amLODIPine 5 MG Tab PO SCH (08:20)
[2018-03-30] MEDS: Losartan 100 MG Tab PO SCH (08:20)
[2018-03-30] MEDS: buPROPion 150 MG Tab.ER PO SCH (08:20)
[2018-03-30] MEDS: Allopurinol 100 MG Tab PO SCH (08:20)
[2018-03-30] MEDS: oxyCODONE ER 10 MG TAB.ER PO SCH ×2 (08:20→20:51)
[2018-03-30] MEDS: Zinc (Zinc Gluconate) 50 MG Tab PO SCH (08:21)
[2018-03-30] MEDS: Naloxegol Oxalate 25 MG Tab PO SCH (08:21)
[2018-03-30] MEDS: Multivitamins with Minerals/Iron/Folic Acid/Lycopene Tab PO SCH (08:21)
[2018-03-30] MEDS: Docusate Sodium 100 MG Cap PO SCH (08:21)
[2018-03-30] MEDS: Metoprolol Tartrate 100 MG Tab PO SCH ×2 (08:21→20:52)
[2018-03-30] MEDS: Insulin Detemir 100 Units/ML 3 ML Pen SUBCUT SCH (08:22)
[2018-03-30] MEDS: ROZEREM 8 MG PO SCH (20:53)
[2018-03-30] MEDS: Simvastatin 20 MG Tab PO SCH (20:54)
[2018-03-30] MEDS: Sertraline 100 MG Tab PO SCH (20:54)
[2018-03-30] MEDS: Aspirin 81 MG Tab.EC PO SCH (20:55)
[2018-03-30] MEDS: NYSTATIN TOP PRN (21:02)
[2018-03-31] MEDS: Omeprazole 20 MG Cap.CR PO SCH ×2 (05:54→17:09)
[2018-03-31] MEDS: Furosemide 20 MG Tab PO SCH ×2 (06:02→15:15)
[2018-03-31] MEDS: Acetaminophen 500 MG Tab PO SCH ×3 (06:02→23:59)
[2018-03-31] MEDS: Zinc (Zinc Gluconate) 50 MG Tab PO SCH (08:44)
[2018-03-31] MEDS: Multivitamins with Minerals/Iron/Folic Acid/Lycopene Tab PO SCH (08:44)
[2018-03-31] MEDS: Docusate Sodium 100 MG Cap PO SCH (08:44)
[2018-03-31] MEDS: Iron Polysaccharides Complex 150 MG Cap PO SCH (08:44)
[2018-03-31] MEDS: oxyCODONE ER 10 MG TAB.ER PO SCH ×2 (08:45→20:42)
[2018-03-31] MEDS: amLODIPine 5 MG Tab PO SCH (08:48)
[2018-03-31] MEDS: Allopurinol 100 MG Tab PO SCH (08:48)
[2018-03-31] MEDS: buPROPion 150 MG Tab.ER PO SCH (08:49)
[2018-03-31] MEDS: Losartan 100 MG Tab PO SCH (08:49)
[2018-03-31] MEDS: Insulin Detemir 100 Units/ML 3 ML Pen SUBCUT SCH (08:51)
[2018-03-31] MEDS: Metoprolol Tartrate 100 MG Tab PO SCH ×2 (08:53→20:42)
[2018-03-31] MEDS: Naloxegol Oxalate 25 MG Tab PO SCH (08:53)
[2018-03-31] MEDS: Sertraline 100 MG Tab PO SCH (20:40)
[2018-03-31] MEDS: Aspirin 81 MG Tab.EC PO SCH (20:40)
[2018-03-31] MEDS: Simvastatin 20 MG Tab PO SCH (20:41)
[2018-03-31] MEDS: ROZEREM 8 MG PO SCH (20:41)
[2018-04-01] MEDS: Omeprazole 20 MG Cap.CR PO SCH ×2 (05:38→17:51)
[2018-04-01] MEDS: Furosemide 20 MG Tab PO SCH (06:44)
[2018-04-01] MEDS: Acetaminophen 500 MG Tab PO SCH ×3 (06:44→22:44)
[2018-04-01] MEDS: Docusate Sodium 100 MG Cap PO SCH (09:03)
[2018-04-01] MEDS: Multivitamins with Minerals/Iron/Folic Acid/Lycopene Tab PO SCH (09:03)
[2018-04-01] MEDS: buPROPion 150 MG Tab.ER PO SCH (09:03)
[2018-04-01] MEDS: Zinc (Zinc Gluconate) 50 MG Tab PO SCH (09:03)
[2018-04-01] MEDS: Naloxegol Oxalate 25 MG Tab PO SCH (09:03)
[2018-04-01] MEDS: Allopurinol 100 MG Tab PO SCH (09:03)
[2018-04-01] MEDS: oxyCODONE ER 10 MG TAB.ER PO SCH ×2 (09:03→21:34)
[2018-04-01] MEDS: Insulin Detemir 100 Units/ML 3 ML Pen SUBCUT SCH (09:05)
[2018-04-01] MEDS: Losartan 100 MG Tab PO SCH (09:06)
[2018-04-01] MEDS: Metoprolol Tartrate 100 MG Tab PO SCH ×2 (09:06→21:25)
[2018-04-01] MEDS: amLODIPine 5 MG Tab PO SCH (09:06)
[2018-04-01] MEDS: Simethicone 80 MG Tab.Chew PO PRN (10:03)
[2018-04-01] MEDS: Ondansetron 4 MG Tab PO PRN (17:54)
[2018-04-01] MEDS: ROZEREM 8 MG PO SCH (21:25)
[2018-04-01] MEDS: Simvastatin 20 MG Tab PO SCH (21:25)
[2018-04-01] MEDS: Sertraline 100 MG Tab PO SCH (21:26)
[2018-04-01] MEDS: Aspirin 81 MG Tab.EC PO SCH (21:27)
[2018-04-02] MEDS: Furosemide 20 MG Tab PO SCH ×2 (06:41→15:50)
[2018-04-02] MEDS: Omeprazole 20 MG Cap.CR PO SCH ×2 (06:43→17:50)
[2018-04-02] MEDS: Acetaminophen 500 MG Tab PO SCH ×2 (06:45→15:50)
[2018-04-02] MEDS: Iron Polysaccharides Complex 150 MG Cap PO SCH (08:45)
[2018-04-02] MEDS: Multivitamins with Minerals/Iron/Folic Acid/Lycopene Tab PO SCH (08:45)
[2018-04-02] MEDS: Docusate Sodium 100 MG Cap PO SCH (08:45)
[2018-04-02] MEDS: Zinc (Zinc Gluconate) 50 MG Tab PO SCH (08:45)
[2018-04-02] MEDS: Allopurinol 100 MG Tab PO SCH (08:46)
[2018-04-02] MEDS: Insulin Detemir 100 Units/ML 3 ML Pen SUBCUT SCH (08:47)
[2018-04-02] MEDS: amLODIPine 5 MG Tab PO SCH (08:47)
[2018-04-02] MEDS: buPROPion 150 MG Tab.ER PO SCH (08:47)
[2018-04-02] MEDS: Losartan 100 MG Tab PO SCH (08:48)
[2018-04-02] MEDS: oxyCODONE ER 10 MG TAB.ER PO SCH ×2 (08:50→21:47)
[2018-04-02] MEDS: Naloxegol Oxalate 25 MG Tab PO SCH (08:50)
[2018-04-02] MEDS: Metoprolol Tartrate 100 MG Tab PO SCH ×2 (08:51→21:50)
--- NOTE | 2018-04-02 12:11 | PCM.PN ---
- General Info Date of Service: 04/02/18 Functional Status: Reports: Pain Controlled, Tolerating Diet (Although tolerating his have breakthrough acid reflux epigastric pain once or twice weekly) - Review of Systems General: Reports: Weakness. Denies: Fever HEENT: Reports: No Symptoms Pulmonary: Denies: Shortness of Breath, Pleuritic Chest Pain, Cough, Sputum, Wheezing Cardiovascular: Reports: Edema (Lower extremities) Gastrointestinal: Reports: Abdominal Pain (Epigastric pain left lower quadrant pain once or twice weekly mainly with spicy fatty foods). Denies: Decreased Appetite, Diarrhea, Difficulty Swallowing, Melena, Nausea Genitourinary: Reports: No Symptoms Musculoskeletal: Reports: Shoulder Pain (Left shoulder pain upon movement) Skin: Reports: No Symptoms Neurological: Reports: Gait Disturbance. Denies: Confusion, Dizziness, Headache , Numbness, Tingling Psychiatric: Reports: No Symptoms - Patient Data Vitals - Most Recent: Last Vital Signs Temp 97.7 F 04/02/18 06:38 Pulse 58 L 04/02/18 06:38 Resp 20 04/02/18 06:38 BP 174/76 H 04/02/18 06:38 Pulse Ox 97 04/02/18 06:38 Weight - Most Recent: 197 lb 2 oz I&O - Last 24 Hours: Intake & Output 04/01/18 04/02/18 04/02/18 22:59 06:59 14:59 Intake Total 840 200 Balance 840 200 Lab Results Last 24 Hours: Laboratory Results - last 24 hr 04/02/18 Range/Units 06:37 POC Glucose 87 (74-106) mg/dl Med Orders - Current: Current Medications Acetaminophen (Tylenol Extra Strength) 1,000 mg PO Q8H [facility] Last Admin: 04/02/18 06:45 Dose: 1,000 mg Al Hydroxide/Mg Hydroxide (Mag-Al Susp) 30 ml PO Q6H PRN PRN Reason: Heartburn Last Admin: 01/18/18 12:18 Dose: 30 ml Aspirin (Halfprin) 81 mg PO BEDTIME [facility] Last Admin: 04/01/18 21:27 Dose: 81 mg Bisacodyl (Dulcolax) 10 mg RECTAL DAILY PRN PRN Reason: Constipation Last Admin: 01/08/18 11:45 Dose: 10 mg Docusate Sodium (Colace) 100 mg PO DAILY [facility] Last Admin: 04/02/18 08:45 Dose: 100 mg Multivitamins/Minerals (Centrum) 1 tab PO DAILY [facility] Last Admin: 04/02/18 08:45 Dose: 1 tab Allopurinol 100 Mg (Tab) 1 each PO DAILY [facility] Last Admin: 04/02/18 08:46 Dose: 1 each Metoprolol Tartrate (100 Mg Tab) 0.5 each PO BID [facility] Last Admin: 04/02/18 08:51 Dose: 0.5 each Simvastatin 20 Mg (Tab) 1 each PO BEDTIME [facility] Last Admin: 04/01/18 21:25 Dose: 1 each Prochlorperazine 10 (Mg Tab) 1 each PO QID PRN PRN Reason: Nausea Furosemide 20 Mg Tab 1 each PO SuTuThSa@1500 [facility] Last Admin: 03/31/18 15:15 Dose: 1 each Furosemide 20 Mg Tab 1 each PO DAILY@0700 [facility] Last Admin: 04/02/18 06:41 Dose: 1 each Sertraline 100 Mg (Tab) 1.5 each PO BEDTIME [facility] Last Admin: 04/01/18 21:26 Dose: 1.5 each Omeprazole 20 Mg Cap (.Cr) 1 each PO BID@0600,1700 [facility] Last Admin: 04/02/18 06:43 Dose: 1 each Ondansetron 4 Mg Tab 2 each PO TID PRN PRN Reason: nausea or vomitting Last Admin: 04/01/18 17:54 Dose: 2 each Naloxegol Oxalate 25 (Mg Tab) 1 each PO DAILY [facility] Last Admin: 04/02/18 08:50 Dose: 1 each Bupropion 150 Mg Tab (.Er) 1 each PO DAILY [facility] Last Admin: 04/02/18 08:47 Dose: 1 each Losartan 100 Mg Tab 1 each PO DAILY [facility] Last Admin: 04/02/18 08:48 Dose: 1 each Oxycodone Er 10 Mg (Tab.Er) 1 each PO Q12H [facility] Last Admin: 04/02/18 08:50 Dose: 1 each Oxycodone 5 Mg Tab 5 each PO Q6H PRN PRN Reason: Pain Last Admin: 03/15/18 13:07 Dose: 5 each Insulin Detemir 100 (Units/Ml 3 Ml Pen) 42 each SUBCUT DAILY [facility] Last Admin: 04/02/18 08:47 Dose: 42 each Diclofenac Sodium 1% (Gel 100 Gm Tube) 1 each TOP QID PRN PRN Reason: Pain Last Admin: 03/03/18 08:55 Dose: 1 each Rozerem 8mg Tablet 1 each PO BEDTIME [facility] Last Admin: 04/01/18 21:25 Dose: 1 each Alprazolam 0.25 Mg (Tab) 1 each PO Q8H PRN PRN Reason: Anxiety Nystatin Cream 30gm (Tube) 1 each TOP BID PRN PRN Reason: Rash Last Admin: 03/30/18 21:02 Dose: 1 each Amlodipine 5 Mg Tab 1 each PO DAILY [facility] Last Admin: 04/02/18 08:47 Dose: 1 each Polyethylene Glycol (Miralax) 17 gm PO DAILY PRN PRN Reason: Constipation Last Admin: 03/26/18 14:58 Dose: 17 gm Polysaccharide Iron Complex (Ferrex 150) 150 mg PO Q48H [facility] Last Admin: 04/02/18 08:45 Dose: 150 mg Promethazine HCl (Phenergan) 25 mg IM Q6H PRN PRN Reason: Nausea Last Admin: 01/02/18 18:21 Dose: 25 mg Senna/Docusate Sodium (Senna Plus) 1 tab PO BEDTIME [facility] Last Admin: 04/01/18 21:27 Dose: 1 tab Simethicone (Simethicone) 80 mg PO Q6H PRN PRN Reason: Heartburn Last Admin: 04/01/18 10:03 Dose: 80 mg Zinc Gluconate (Zinc) 50 mg PO DAILY [facility] Last Admin: 04/02/18 08:45 Dose: 50 mg Discontinued Medications Acetaminophen (Tylenol Extra Strength) 1,000 mg PO Q8H [facility] Last Admin: 10/23/17 02:00 Dose: 1,000 mg Acetaminophen (Tylenol Extra Strength) 1,000 mg PO Q8H [facility] Last Admin: 11/22/17 15:12 Dose: 1,000 mg Acetaminophen (Tylenol) Confirm Administered Dose 975 mg .ROUTE .STK-MED ONE Stop: 11/08/17 07:36 Last Admin: 11/08/17 08:28 Dose: 975 mg Hydrocodone Bitart/Acetaminophen ([place] 325-5 Mg) 1 - 2 tab PO Q4H PRN PRN Reason: Moderate Pain Last Admin: 10/24/17 19:26 Dose: 1 tab Al Hydroxide/Mg Hydroxide (Mag-Al Susp) Confirm Administered Dose 30 ml .ROUTE .STK-MED ONE Stop: 01/09/18 21:49 Last Admin: 01/09/18 22:00 Dose: 30 ml Al Hydroxide/Mg Hydroxide (Mag-Al Susp) 30 ml PO Q6H PRN PRN Reason: Heartburn Last Admin: 01/09/18 22:00 Dose: 30 ml Allopurinol (Zyloprim) 100 mg PO DAILY [facility] Last Admin: 02/15/18 08:51 Dose: 100 mg Alprazolam (Xanax) 0.25 mg PO Q8H PRN PRN Reason: Anxiety Last Admin: 02/19/18 02:06 Dose: 0.25 mg Amlodipine Besylate (Norvasc) 5 mg PO DAILY [facility] Last Admin: 02/16/18 08:24 Dose: 5 mg Bacitracin (Bacitracin Oint) 1 gm TOP DAILY PRN PRN Reason: Rash Bisacodyl (Dulcolax) 10 mg RECTAL ONETIME ONE Stop: 12/21/17 04:02 Last Admin: 12/21/17 04:17 Dose: Not Given Bisacodyl (Dulcolax) Confirm Administered Dose 10 mg .ROUTE .K-MED ONE Stop: 01/08/18 11:37 Last Admin: 01/08/18 16:15 Dose: Not Given Bupropion HCl (Wellbutrin Xl) 150 mg PO DAILY [facility] Last Admin: 02/16/18 08:22 Dose: 150 mg Calcium Carbonate/Glycine (Tums) 500 mg PO TID PRN PRN Reason: Indigestion Ciprofloxacin (Ciprofloxacin Hcl) 500 mg PO BID [facility] Stop: 12/24/17 21:01 Last Admin: 12/24/17 21:04 Dose: 500 mg Al Hydroxide/Mg Hydroxide 40 ml/ Diphenhydramine HCl 12.5 mg/ Lidocaine HCl 40 ml 0 ml PO TID PRN PRN Reason: mouth sores/burning Last Admin: 10/28/17 08:11 Dose: 10 ml Cranberry (Azo Cranberry) 1 each PO BEDTIME [facility] Last Admin: 11/07/17 21:46 Dose: Not Given Diclofenac Sodium (Voltaren 1% Gel) 1 gm TOP QID [facility] Last Admin: 01/26/18 08:10 Dose: Not Given Diclofenac Sodium (Voltaren 1% Gel) 1 gm TOP QID PRN PRN Reason: Pain Last Admin: 02/08/18 20:12 Dose: 1 applic Furosemide (Lasix) 20 mg PO DAILY [facility] Last Admin: 12/13/17 09:25 Dose: 20 mg Furosemide (Lasix) 20 mg PO SUTUTHSA@1700 [facility] Last Admin: 12/12/17 16:01 Dose: 20 mg Furosemide (Lasix) 20 mg PO SuTuThSa@1500 [facility] Last Admin: 02/13/18 14:52 Dose: 20 mg Furosemide (Lasix) 20 mg PO DAILY@0700 [facility] Last Admin: 02/15/18 06:44 Dose: 20 mg Heparin Sodium (Porcine) (Heparin Lock Flush 100 Units/Ml) 500 units FLUSH ASDIRECTED PRN PRN Reason: Other Cefepime HCl 1 gm/ Sodium (Chloride) 50 mls @ 100 mls/hr IV Q8H [facility] Last Admin: 11/01/17 18:52 Dose: Not Given Cefepime HCl 1 gm/ Sodium (Chloride) 50 mls @ 100 mls/hr IV Q24H [facility] Last Admin: 11/07/17 20:32 Dose: 100 mls/hr Sodium Chloride (Normal Saline) Confirm Administered Dose 50 mls @ as directed .ROUTE .[facility] ONE Stop: 11/02/17 22:10 Last Admin: 11/02/17 23:15 Dose: 100 mls/hr Sodium Chloride (Normal Saline) Confirm Administered Dose 50 mls @ as directed .ROUTE .[facility] ONE Stop: 11/03/17 21:46 Last Admin: 11/03/17 21:56 Dose: Not Given Sodium Chloride (Normal Saline) 50 mls @ 50 mls/hr IV ASDIRECTED [facility] Albumin Human (Flexbumin 25%) 100 mls @ 50 mls/hr IV ONETIME ONE Stop: 11/22/17 13:59 Last Admin: 11/22/17 13:07 Dose: 50 mls/hr Sodium Chloride (Normal Saline) 250 mls @ 125 mls/hr IV ASDIRECTED [facility] Stop: 11/22/17 21:00 Last Admin: 11/22/17 15:40 Dose: 125 mls/hr Ciprofloxacin/Dextrose (Cipro In D5w 400 Mg/200 Ml) 200 mls @ 200 mls/hr IV Q12H [facility] Last Admin: 11/26/17 06:13 Dose: 200 mls/hr Sodium Chloride (Normal Saline) Confirm Administered Dose 100 mls @ as directed .ROUTE .STK-MED ONE Stop: 11/22/17 20:04 Last Admin: 11/22/17 20:05 Dose: 100 mls/hr Sodium Chloride (Normal Saline) 100 mls @ 200 mls/hr IV ASDIRECTED [facility] Sodium Chloride (Normal Saline) 100 mls @ 20 mls/hr IV DAILY@1900 [facility] Last Admin: 11/25/17 18:08 Dose: 20 mls/hr Insulin Aspart (Novolog) 0 unit SUBCUT WITHMEALSANDBED [facility]; Protocol Stop: 10/31/17 00:00 Last Admin: 10/30/17 21:02 Dose: 5 units Insulin Aspart (Novolog) 2 unit SUBCUT ONETIME ONE Stop: 10/31/17 20:59 Last Admin: 10/31/17 21:07 Dose: 2 units Insulin Aspart (Novolog) 10 unit SUBCUT ONETIME ONE Stop: 11/12/17 17:44 Last Admin: 11/12/17 18:06 Dose: 10 units Insulin Aspart (Novolog) 0 unit SUBCUT TIDMEALS [facility]; Protocol Last Admin: 12/21/17 17:16 Dose: Not Given Insulin Detemir (Levemir) 44 unit SUBCUT DAILY [facility] Last Admin: 10/30/17 10:10 Dose: Not Given Insulin Detemir (Levemir) 40 unit SUBCUT DAILY [facility] Last Admin: 11/14/17 08:22 Dose: 40 units Insulin Detemir (Levemir) 44 unit SUBCUT DAILY [facility] Last Admin: 11/29/17 11:32 Dose: Not Given Insulin Detemir (Levemir) 34 unit SUBCUT DAILY [facility] Last Admin: 12/02/17 10:11 Dose: Not Given Insulin Detemir (Levemir) 30 unit SUBCUT DAILY [facility] Last Admin: 12/20/17 08:02 Dose: 30 units Insulin Detemir (Levemir) 40 unit SUBCUT DAILY [facility] Last Admin: 02/09/18 08:17 Dose: 40 units Insulin Detemir (Levemir) 10 unit SUBCUT ONETIME ONE Stop: 12/20/17 13:01 Last Admin: 12/20/17 14:38 Dose: 10 units Insulin Detemir (Levemir) 42 unit SUBCUT DAILY [facility] Last Admin: 02/16/18 08:24 Dose: 42 unit Lidocaine/Epinephrine (Xylocaine 1% With Epinephrine 1:100,000) 3 ml INJECT ONETIME ONE Stop: 11/05/17 09:01 Last Admin: 11/05/17 09:00 Dose: 3 ml Loperamide HCl (Imodium) 2 mg PO ASDIRECTED PRN PRN Reason: Diarrhea Last Admin: 11/30/17 05:53 Dose: 2 mg Lorazepam (Ativan) 0.25 mg PO Q8H PRN PRN Reason: Anxiety Last Admin: 12/13/17 18:03 Dose: 0.25 mg Lorazepam (Ativan) 0.25 mg PO Q8H PRN PRN Reason: Anxiety Losartan Potassium (Cozaar) 25 mg PO DAILY [facility] Last Admin: 11/27/17 09:05 Dose: 25 mg Losartan Potassium (Cozaar) 50 mg PO DAILY [facility] Last Admin: 12/25/17 08:57 Dose: 50 mg Losartan Potassium (Cozaar) 75 mg PO DAILY [facility] Last Admin: 01/17/18 08:26 Dose: 75 mg Losartan Potassium (Cozaar) 100 mg PO DAILY [facility] Last Admin: 02/16/18 08:24 Dose: 100 mg Magnesium Hydroxide (Milk Of Magnesia) 30 ml PO DAILY PRN PRN Reason: Constipation Last Admin: 10/26/17 09:10 Dose: 30 ml Melatonin (Melatonin) 6 mg PO BEDTIME [facility] Metoprolol Tartrate (Lopressor) 50 mg PO BID [facility] Last Admin: 02/15/18 08:51 Dose: 50 mg Multivitamins/Minerals (Centrum) 1 tab PO DAILY [facility] Last Admin: 12/20/17 08:03 Dose: 1 tab Multivitamins/Minerals (Centrum) 1 tab PO DAILY@1200 [facility] Last Admin: 12/27/17 11:36 Dose: 1 tab Mupirocin (Bactroban Crm) 1 gm TOP TID [facility] Last Admin: 10/29/17 11:29 Dose: Not Given Mupirocin (Bactroban Oint) 0 gm TOP DAILY [facility] Last Admin: 12/06/17 10:12 Dose: 1 applic Naloxegol (Movantik) 25 mg PO DAILY [facility] Last Admin: 02/16/18 08:22 Dose: 25 mg Insulin Degludec ( (Tresiba) 44units) 44 units SUBCUT DAILY [facility] Nystatin (Nystop) 0 gm TOP BID [facility] Last Admin: 10/25/17 08:58 Dose: 1 applic Nystatin (Nystop) 0 gm TOP TID [facility] Last Admin: 10/26/17 11:15 Dose: Not Given Nystatin (Nystatin Ointment) 0 gm TOP TID [facility] Last Admin: 11/04/17 15:49 Dose: Not Given Nystatin (Nystatin Ointment) 1 gm TOP DAILY PRN PRN Reason: Rash Last Admin: 12/26/17 08:19 Dose: 1 applic Nystatin (Nystatin Ointment) 1 gm TOP BID [facility] Last Admin: 01/01/18 09:12 Dose: Not Given Nystatin (Nystatin Ointment) 1 gm TOP BID PRN PRN Reason: Rash Nystatin (Nystatin Ointment) 0 gm TOP BID PRN PRN Reason: Rash Olanzapine (Zyprexa) 10 mg PO ASDIRECTED [facility] Olanzapine (Zyprexa) 10 mg PO BEDTIME [facility] Stop: 11/14/17 21:01 Last Admin: 11/14/17 21:28 Dose: 10 mg Olanzapine (Zyprexa) 10 mg PO BEDTIME [facility] Stop: 11/22/17 21:01 Last Admin: 11/22/17 21:41 Dose: 10 mg Omeprazole (Omeprazole) 20 mg PO SUTUTHSA@2100 [facility] Last Admin: 10/23/17 21:24 Dose: 20 mg Omeprazole (Omeprazole) 20 mg PO DAILY@2100 [facility] Last Admin: 12/11/17 20:18 Dose: 20 mg Omeprazole (Omeprazole) 20 mg PO BID [facility] Last Admin: 12/13/17 09:27 Dose: 20 mg Omeprazole (Omeprazole) 20 mg PO BIDAC [facility] Last Admin: 12/17/17 16:45 Dose: 20 mg Omeprazole (Omeprazole) 20 mg PO DAILY@0600,1700 [facility] Last Admin: 01/20/18 06:27 Dose: 20 mg Omeprazole (Omeprazole) 20 mg PO BID@0600,1700 [facility] Last Admin: 02/15/18 06:44 Dose: 20 mg Ondansetron HCl (Zofran Odt) 8 mg PO TID PRN PRN Reason: nausea or vomitting Last Admin: 01/26/18 17:53 Dose: 8 mg Oxycodone HCl (Oxycodone) 5 mg PO Q6H [facility] Last Admin: 10/23/17 06:11 Dose: 5 mg Oxycodone HCl (Oxycodone) 5 mg PO Q6H [facility] Last Admin: 10/24/17 06:21 Dose: Not Given Oxycodone HCl (Oxycodone) 5 mg PO Q6H PRN PRN Reason: Pain Last Admin: 02/14/18 13:38 Dose: 5 mg Oxycodone HCl (Oxycodone) 5 mg PO BEDTIME [facility] Last Admin: 12/07/17 20:02 Dose: 5 mg Oxycodone HCl (Oxycodone) 5 mg PO ONETIME ONE Stop: 11/23/17 18:12 Last Admin: 11/23/17 18:48 Dose: 5 mg Oxycodone HCl (Oxycodone) 7.5 mg PO BEDTIME [facility] Stop: 12/13/17 23:00 Last Admin: 12/13/17 20:05 Dose: 7.5 mg Oxycodone HCl (Oxycodone) 5 mg PO ONETIME ONE Stop: 12/13/17 17:59 Last Admin: 12/13/17 18:21 Dose: 5 mg Oxycodone HCl (Oxycontin) 10 mg PO Q12H [facility] Last Admin: 02/16/18 08:22 Dose: 10 mg Oxycodone HCl (Oxycontin) Confirm Administered Dose 10 mg .ROUTE .STK-MED ONE Stop: 12/31/17 11:25 Last Admin: 12/31/17 11:26 Dose: 10 mg Amlodipine 5 Mg Tab 5 each PO DAILY [facility] Last Admin: 03/07/18 08:22 Dose: 5 each Polysaccharide Iron Complex (Ferrex 150) 150 mg PO DAILY [facility] Last Admin: 12/20/17 08:05 Dose: 150 mg Polysaccharide Iron Complex (Ferrex 150) 150 mg PO DAILY@1200 [facility] Last Admin: 12/27/17 11:36 Dose: 150 mg Polysaccharide Iron Complex (Ferrex 150) 150 mg PO DAILY [facility] Last Admin: 02/09/18 08:17 Dose: 150 mg Polysaccharide Iron Complex (Ferrex 150) 150 mg PO Q48H [facility] Last Admin: 02/09/18 11:46 Dose: Not Given Prochlorperazine Maleate (Compazine) 10 mg PO QID PRN PRN Reason: Nausea Prochlorperazine Maleate (Compazine) 10 mg PO QID PRN PRN Reason: Nausea Last Admin: 01/16/18 20:25 Dose: 10 mg Ramelteon (Rozerem) 8 mg PO BEDTIME [facility] Last Admin: 02/16/18 22:33 Dose: 8 mg Senna/Docusate Sodium (Senna Plus) 1 tab PO BID PRN PRN Reason: Constipation Last Admin: 10/28/17 08:08 Dose: 1 tab Senna/Docusate Sodium (Senna Plus) 1 tab PO BID [facility] Last Admin: 11/04/17 15:49 Dose: Not Given Senna/Docusate Sodium (Senna Plus) 1 - 2 tab PO DAILY PRN PRN Reason: Constipation Sertraline HCl (Zoloft) 100 mg PO BEDTIME [facility] Last Admin: 01/07/18 20:58 Dose: 100 mg Sertraline HCl (Zoloft) 150 mg PO BEDTIME [facility] Last Admin: 02/14/18 20:02 Dose: 150 mg Simvastatin (Zocor) 40 mg PO BEDTIME [facility] Last Admin: 02/14/18 20:03 Dose: 40 mg Sodium Chloride (Hood Nasal [place]) 1 ml ALDO QID PRN PRN Reason: Dryness Last Admin: 11/12/17 21:03 Dose: 1 spray Sodium Chloride (Normal Saline) 20 ml FLUSH ASDIRECTED PRN PRN Reason: Other Sodium Chloride (Saline Flush) 20 ml FLUSH Q8H [facility] Last Admin: 11/02/17 10:46 Dose: Not Given Sodium Chloride (Saline Flush) 20 ml FLUSH Q8H [facility] Last Admin: 11/11/17 12:20 Dose: Not Given Zinc Gluconate (Zinc) 50 mg PO DAILY [facility] Last Admin: 12/20/17 08:05 Dose: 50 mg Zinc Gluconate (Zinc) 50 mg PO DAILY@1200 [facility] Last Admin: 12/27/17 11:35 Dose: 50 mg - Exam Quality Assessment: No: Supplemental Oxygen General: Alert, Oriented, Cooperative, No Acute Distress HEENT: Pupils Equal Neck: Supple Lungs: Clear to Auscultation, Normal Respiratory Effort Cardiovascular: Regular Rate, Regular Rhythm GI/Abdominal Exam: Distended (Abdomen chronically distended however not taut), Other (clotted Pleurx drain no drainage) (Female) Exam: Deferred Back Exam: No: CVA Tenderness (L), CVA Tenderness (R) Extremities: Limited Range of Motion, Other (Left shoulder, limited abduction 30 , ). No: Increased Warmth Skin: Warm, Dry, Intact Wound/Incisions: Dressing Dry and Intact Neurological: No New Focal Deficit - Problem List Review Problem List Initiated/Reviewed/Updated: Yes - Plan Plan:: HPI: This is a 76 year old female who had previously been in swing bed status due to a left humeral fracture and deconditioning. The patient has been recently diagnosed with peritoneal carcinomatosis. The patient was sent up to [facility] on 10/20/17 for abdominal paracentesis and pleurx catheter placement. She had labs done that day which showed a hemoglobin of 6.5. She was then admitted to their hospitalist services. She was given 2 units of PRBCs. She was due for her second cycle of carboplatin and taxol while there and this was completed on 10/21/17. She was also given Neulasta prior to discharge. The patient was admitted back to swing bed status for rehabilitation of her fracture and deconditioning. Diagnostics Repeat CT abdomen and pelvis dated 03/17, moderate to large amount of free fluid in the abdomen/ pelvis, no evidence of cholecystolithiasis, moderate ascites PRIMARY ASSESSMENT/PLAN: Left humeral head fracture. Patient with periodic pain however mainly on movement. She does have significant limitations in her left arm with almost no ability to abduct 30 however ongoing physical therapy is assisting with ROM and strengthening. 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 Progressive healing continues. Deconditioning. Continue physical therapy Immunocompromised host. No fever no infectious process. SECONDARY ASSESSMENT/PLAN: Malignant ascites. PleurX catheter clogged. Unsuccessful attempt upon removing in the past. Anemia due to antineoplastic chemotherapy. recent hemoglobin Hgb stable at 12.3. Reassess Anxiety, very stable, Much improved affect Primary peritoneal carcinomatosis. Followed by Dr. Collier/oncology with ongoing Pleurx abdominal drain however is clogged. History of endometrial cancer, s/p hysterceomty 2009. CAD, no ischemic picture, stable. HTN. Continue lopressor and losartan and Norvasc 5 mg Aortic stenosis. History of atrial flutter. Type 2 DM. Adequate fasting Accuchecks daily. Tresiba switched to levemir daily due to not being available in house. 42 units CKD stage 3. Creatinine acceptable Hyperlipidemia. Continue simvastatin. Obesity. Gout. Continue allopurinol 100 mg daily. Diabetic retinopathy. Depression. Continue zoloft. GERD. Continue omeprazole. OAB. Osteoarthritis. History of hypercalcemia. Recent Hypoalbuminemia. DVT prophylaxis. Score of 6, Continue with phan stockings. Overall plan: Continue an SNF with PT. Continue with physical therapy with left humeral exercises. At one point patient was conducive to revisiting oncologist however with consultation with her family she has changed her mind. Anticipate discharge to long-term care after Julian.
[2018-04-02 13:14] LABS: ANION GAP 14.8 mmol/L (5-15)
[2018-04-02] MEDS: Aspirin 81 MG Tab.EC PO SCH (21:47)
[2018-04-02] MEDS: Sertraline 100 MG Tab PO SCH (21:48)
[2018-04-02] MEDS: ROZEREM 8 MG PO SCH (21:48)
[2018-04-02] MEDS: Simvastatin 20 MG Tab PO SCH (21:49)
[2018-04-03] MEDS: Acetaminophen 500 MG Tab PO SCH ×4 (06:30→23:10)
[2018-04-03] MEDS ORDERED: Furosemide 20 MG Tab ONE (06:34)
[2018-04-03] MEDS ORDERED: Omeprazole 20 MG Cap.CR ONE (06:35)
[2018-04-03] MEDS: Omeprazole 20 MG Cap.CR PO SCH ×2 (06:36→17:27)
[2018-04-03] MEDS: Furosemide 20 MG Tab PO SCH ×2 (06:37→15:38)
[2018-04-03] MEDS: Zinc (Zinc Gluconate) 50 MG Tab PO SCH (09:48)
[2018-04-03] MEDS: Multivitamins with Minerals/Iron/Folic Acid/Lycopene Tab PO SCH (09:48)
[2018-04-03] MEDS: Docusate Sodium 100 MG Cap PO SCH (09:48)
[2018-04-03] MEDS: Allopurinol 100 MG Tab PO SCH (09:49)
[2018-04-03] MEDS: amLODIPine 5 MG Tab PO SCH (09:50)
[2018-04-03] MEDS: Insulin Detemir 100 Units/ML 3 ML Pen SUBCUT SCH (09:50)
[2018-04-03] MEDS: buPROPion 150 MG Tab.ER PO SCH (09:50)
[2018-04-03] MEDS: Metoprolol Tartrate 100 MG Tab PO SCH ×2 (09:51→21:04)
[2018-04-03] MEDS: Losartan 100 MG Tab PO SCH (09:51)
[2018-04-03] MEDS: oxyCODONE ER 10 MG TAB.ER PO SCH ×2 (09:52→21:01)
[2018-04-03] MEDS: Naloxegol Oxalate 25 MG Tab PO SCH (09:52)
[2018-04-03] MEDS: Aluminum Hydroxide/Magnesium Hydroxide Susp 30 ML Cup PO PRN (19:06)
[2018-04-03] MEDS: Simvastatin 20 MG Tab PO SCH (20:59)
[2018-04-03] MEDS: ROZEREM 8 MG PO SCH (21:00)
[2018-04-03] MEDS: Sertraline 100 MG Tab PO SCH (21:00)
[2018-04-03] MEDS: Aspirin 81 MG Tab.EC PO SCH (21:03)
[2018-04-04] MEDS: Omeprazole 20 MG Cap.CR PO SCH ×2 (06:27→17:01)
[2018-04-04] MEDS: Furosemide 20 MG Tab PO SCH (06:28)
[2018-04-04] MEDS: Acetaminophen 500 MG Tab PO SCH ×3 (06:29→22:19)
[2018-04-04] MEDS: Zinc (Zinc Gluconate) 50 MG Tab PO SCH (08:45)
[2018-04-04] MEDS: Multivitamins with Minerals/Iron/Folic Acid/Lycopene Tab PO SCH (08:45)
[2018-04-04] MEDS: Docusate Sodium 100 MG Cap PO SCH (08:45)
[2018-04-04] MEDS: Iron Polysaccharides Complex 150 MG Cap PO SCH (08:45)
[2018-04-04] MEDS: Losartan 100 MG Tab PO SCH (08:46)
[2018-04-04] MEDS: Metoprolol Tartrate 100 MG Tab PO SCH ×2 (08:46→21:44)
[2018-04-04] MEDS: buPROPion 150 MG Tab.ER PO SCH (08:47)
[2018-04-04] MEDS: Naloxegol Oxalate 25 MG Tab PO SCH (08:47)
[2018-04-04] MEDS: amLODIPine 5 MG Tab PO SCH (08:47)
[2018-04-04] MEDS: Allopurinol 100 MG Tab PO SCH (08:47)
[2018-04-04] MEDS: oxyCODONE ER 10 MG TAB.ER PO SCH ×2 (08:48→21:44)
[2018-04-04] MEDS: Insulin Detemir 100 Units/ML 3 ML Pen SUBCUT SCH (08:48)
[2018-04-04] MEDS: Aspirin 81 MG Tab.EC PO SCH (21:40)
[2018-04-04] MEDS: Simvastatin 20 MG Tab PO SCH (21:41)
[2018-04-04] MEDS: Sertraline 100 MG Tab PO SCH (21:41)
[2018-04-04] MEDS: ROZEREM 8 MG PO SCH (21:41)
[2018-04-05] MEDS: Furosemide 20 MG Tab PO SCH ×2 (06:20→14:03)
[2018-04-05] MEDS: Acetaminophen 500 MG Tab PO SCH ×3 (06:20→22:05)
[2018-04-05] MEDS: Omeprazole 20 MG Cap.CR PO SCH ×2 (06:20→16:51)
[2018-04-05] MEDS: Insulin Detemir 100 Units/ML 3 ML Pen SUBCUT SCH (08:42)
[2018-04-05] MEDS: Docusate Sodium 100 MG Cap PO SCH (08:42)
[2018-04-05] MEDS: Multivitamins with Minerals/Iron/Folic Acid/Lycopene Tab PO SCH (08:42)
[2018-04-05] MEDS: Zinc (Zinc Gluconate) 50 MG Tab PO SCH (08:42)
[2018-04-05] MEDS: Allopurinol 100 MG Tab PO SCH (08:43)
[2018-04-05] MEDS: amLODIPine 5 MG Tab PO SCH (08:43)
[2018-04-05] MEDS: Losartan 100 MG Tab PO SCH (08:43)
[2018-04-05] MEDS: buPROPion 150 MG Tab.ER PO SCH (08:43)
[2018-04-05] MEDS: Naloxegol Oxalate 25 MG Tab PO SCH (08:44)
[2018-04-05] MEDS: Metoprolol Tartrate 100 MG Tab PO SCH ×2 (08:48→22:02)
[2018-04-05] MEDS: oxyCODONE ER 10 MG TAB.ER PO SCH ×2 (08:48→22:02)
[2018-04-05] MEDS: Aluminum Hydroxide/Magnesium Hydroxide Susp 30 ML Cup PO PRN (10:41)
[2018-04-05] MEDS: Simvastatin 20 MG Tab PO SCH (22:03)
[2018-04-05] MEDS: Aspirin 81 MG Tab.EC PO SCH (22:03)
[2018-04-05] MEDS: ROZEREM 8 MG PO SCH (22:04)
[2018-04-05] MEDS: Sertraline 100 MG Tab PO SCH (22:04)
[2018-04-06] MEDS: Acetaminophen 500 MG Tab PO SCH ×3 (05:34→14:06)
[2018-04-06] MEDS: Furosemide 20 MG Tab PO SCH ×2 (05:35→06:03)
[2018-04-06] MEDS: Omeprazole 20 MG Cap.CR PO SCH ×2 (05:35→16:16)
[2018-04-06] MEDS: Zinc (Zinc Gluconate) 50 MG Tab PO SCH (08:26)
[2018-04-06] MEDS: oxyCODONE ER 10 MG TAB.ER PO SCH ×2 (08:26→21:09)
[2018-04-06] MEDS: Naloxegol Oxalate 25 MG Tab PO SCH (08:27)
[2018-04-06] MEDS: buPROPion 150 MG Tab.ER PO SCH (08:28)
[2018-04-06] MEDS: Docusate Sodium 100 MG Cap PO SCH (08:29)
[2018-04-06] MEDS: Multivitamins with Minerals/Iron/Folic Acid/Lycopene Tab PO SCH (08:29)
[2018-04-06] MEDS: Allopurinol 100 MG Tab PO SCH (08:29)
[2018-04-06] MEDS: Iron Polysaccharides Complex 150 MG Cap PO SCH (08:29)
[2018-04-06] MEDS: Insulin Detemir 100 Units/ML 3 ML Pen SUBCUT SCH (08:30)
[2018-04-06] MEDS: amLODIPine 5 MG Tab PO SCH (08:32)
[2018-04-06] MEDS: Losartan 100 MG Tab PO SCH (08:32)
[2018-04-06] MEDS: Metoprolol Tartrate 100 MG Tab PO SCH ×2 (08:34→21:02)
[2018-04-06] MEDS: ROZEREM 8 MG PO SCH (21:00)
[2018-04-06] MEDS: Sertraline 100 MG Tab PO SCH (21:00)
[2018-04-06] MEDS: Simvastatin 20 MG Tab PO SCH (21:02)
[2018-04-06] MEDS: Aspirin 81 MG Tab.EC PO SCH (21:05)
[2018-04-07] MEDS: Acetaminophen 500 MG Tab PO SCH ×4 (02:02→22:37)
[2018-04-07] MEDS: Simethicone 80 MG Tab.Chew PO PRN (02:17)
[2018-04-07] MEDS: Omeprazole 20 MG Cap.CR PO SCH ×2 (06:28→18:42)
[2018-04-07] MEDS: Furosemide 20 MG Tab PO SCH ×2 (06:28→14:41)
[2018-04-07] MEDS: Multivitamins with Minerals/Iron/Folic Acid/Lycopene Tab PO SCH (09:57)
[2018-04-07] MEDS: Zinc (Zinc Gluconate) 50 MG Tab PO SCH (09:57)
[2018-04-07] MEDS: Docusate Sodium 100 MG Cap PO SCH (09:57)
[2018-04-07] MEDS: buPROPion 150 MG Tab.ER PO SCH (09:58)
[2018-04-07] MEDS: Naloxegol Oxalate 25 MG Tab PO SCH (09:58)
[2018-04-07] MEDS: amLODIPine 5 MG Tab PO SCH (09:58)
[2018-04-07] MEDS: Losartan 100 MG Tab PO SCH (09:59)
[2018-04-07] MEDS: Allopurinol 100 MG Tab PO SCH (09:59)
[2018-04-07] MEDS: Insulin Detemir 100 Units/ML 3 ML Pen SUBCUT SCH (09:59)
[2018-04-07] MEDS: Metoprolol Tartrate 100 MG Tab PO SCH ×2 (10:00→21:44)
[2018-04-07] MEDS: oxyCODONE ER 10 MG TAB.ER PO SCH ×2 (10:00→21:46)
[2018-04-07] MEDS: NYSTATIN TOP PRN (11:25)
[2018-04-07] MEDS: NYSTATIN TOP SCH ×2 (18:39→21:42)
[2018-04-07] MEDS: Aspirin 81 MG Tab.EC PO SCH (21:42)
[2018-04-07] MEDS: ROZEREM 8 MG PO SCH (21:46)
[2018-04-07] MEDS: Simvastatin 20 MG Tab PO SCH (21:47)
[2018-04-07] MEDS: Sertraline 100 MG Tab PO SCH (21:47)
[2018-04-08] MEDS: Omeprazole 20 MG Cap.CR PO SCH ×2 (06:59→17:25)
[2018-04-08] MEDS: Furosemide 20 MG Tab PO SCH (06:59)
[2018-04-08] MEDS: Acetaminophen 500 MG Tab PO SCH ×3 (07:00→23:51)
[2018-04-08] MEDS: NYSTATIN TOP SCH ×3 (09:46→21:14)
[2018-04-08] MEDS: Zinc (Zinc Gluconate) 50 MG Tab PO SCH (09:49)
[2018-04-08] MEDS: Docusate Sodium 100 MG Cap PO SCH (09:49)
[2018-04-08] MEDS: Multivitamins with Minerals/Iron/Folic Acid/Lycopene Tab PO SCH (09:49)
[2018-04-08] MEDS: Allopurinol 100 MG Tab PO SCH (09:50)
[2018-04-08] MEDS: oxyCODONE ER 10 MG TAB.ER PO SCH ×2 (09:50→21:10)
[2018-04-08] MEDS: Naloxegol Oxalate 25 MG Tab PO SCH (09:52)
[2018-04-08] MEDS: Insulin Detemir 100 Units/ML 3 ML Pen SUBCUT SCH (09:53)
[2018-04-08] MEDS: amLODIPine 5 MG Tab PO SCH (09:54)
[2018-04-08] MEDS: buPROPion 150 MG Tab.ER PO SCH (09:54)
[2018-04-08] MEDS: Losartan 100 MG Tab PO SCH (09:55)
[2018-04-08] MEDS: Metoprolol Tartrate 100 MG Tab PO SCH ×2 (09:55→21:13)
[2018-04-08] MEDS: Iron Polysaccharides Complex 150 MG Cap PO SCH (09:59)
[2018-04-08] MEDS: Aspirin 81 MG Tab.EC PO SCH (21:10)
[2018-04-08] MEDS: ROZEREM 8 MG PO SCH (21:11)
[2018-04-08] MEDS: Simvastatin 20 MG Tab PO SCH (21:12)
[2018-04-08] MEDS: Sertraline 100 MG Tab PO SCH (21:12)
[2018-04-09] MEDS: Omeprazole 20 MG Cap.CR PO SCH ×2 (05:35→17:08)
[2018-04-09] MEDS: Furosemide 20 MG Tab PO SCH ×2 (06:07→15:21)
[2018-04-09] MEDS: Acetaminophen 500 MG Tab PO SCH ×3 (06:07→23:56)
[2018-04-09] MEDS: Multivitamins with Minerals/Iron/Folic Acid/Lycopene Tab PO SCH (09:08)
[2018-04-09] MEDS: NYSTATIN TOP SCH ×3 (09:08→21:34)
[2018-04-09] MEDS: oxyCODONE ER 10 MG TAB.ER PO SCH ×2 (09:08→21:35)
[2018-04-09] MEDS: Zinc (Zinc Gluconate) 50 MG Tab PO SCH (09:08)
[2018-04-09] MEDS: Docusate Sodium 100 MG Cap PO SCH (09:08)
[2018-04-09] MEDS: Insulin Detemir 100 Units/ML 3 ML Pen SUBCUT SCH (09:09)
[2018-04-09] MEDS: Naloxegol Oxalate 25 MG Tab PO SCH (09:10)
[2018-04-09] MEDS: amLODIPine 5 MG Tab PO SCH (09:10)
[2018-04-09] MEDS: Allopurinol 100 MG Tab PO SCH (09:12)
[2018-04-09] MEDS: buPROPion 150 MG Tab.ER PO SCH (09:12)
[2018-04-09] MEDS: Losartan 100 MG Tab PO SCH (09:13)
[2018-04-09] MEDS: Metoprolol Tartrate 100 MG Tab PO SCH ×2 (09:14→20:15)
[2018-04-09] MEDS: Sertraline 100 MG Tab PO SCH (20:13)
[2018-04-09] MEDS: Aspirin 81 MG Tab.EC PO SCH (20:13)
[2018-04-09] MEDS: ROZEREM 8 MG PO SCH (20:13)
[2018-04-09] MEDS: Simvastatin 20 MG Tab PO SCH (20:14)
[2018-04-10] MEDS: Omeprazole 20 MG Cap.CR PO SCH ×2 (05:44→16:26)
[2018-04-10] MEDS: Acetaminophen 500 MG Tab PO SCH ×3 (06:25→22:54)
[2018-04-10] MEDS: Furosemide 20 MG Tab PO SCH ×2 (06:25→14:05)
[2018-04-10] MEDS: Insulin Detemir 100 Units/ML 3 ML Pen SUBCUT SCH (08:25)
[2018-04-10] MEDS: Zinc (Zinc Gluconate) 50 MG Tab PO SCH (08:25)
[2018-04-10] MEDS: Docusate Sodium 100 MG Cap PO SCH (08:25)
[2018-04-10] MEDS: Iron Polysaccharides Complex 150 MG Cap PO SCH (08:25)
[2018-04-10] MEDS: Multivitamins with Minerals/Iron/Folic Acid/Lycopene Tab PO SCH (08:25)
[2018-04-10] MEDS: Allopurinol 100 MG Tab PO SCH (08:27)
[2018-04-10] MEDS: Losartan 100 MG Tab PO SCH (08:28)
[2018-04-10] MEDS: buPROPion 150 MG Tab.ER PO SCH (08:28)
[2018-04-10] MEDS: Naloxegol Oxalate 25 MG Tab PO SCH (08:29)
[2018-04-10] MEDS: amLODIPine 5 MG Tab PO SCH (08:29)
[2018-04-10] MEDS: Metoprolol Tartrate 100 MG Tab PO SCH ×2 (08:29→21:39)
[2018-04-10] MEDS: oxyCODONE ER 10 MG TAB.ER PO SCH ×2 (08:30→21:36)
[2018-04-10] MEDS: NYSTATIN TOP SCH ×3 (08:31→21:41)
[2018-04-10] MEDS: Sertraline 100 MG Tab PO SCH (21:37)
[2018-04-10] MEDS: Aspirin 81 MG Tab.EC PO SCH (21:37)
[2018-04-10] MEDS: ROZEREM 8 MG PO SCH (21:38)
[2018-04-10] MEDS: Simvastatin 20 MG Tab PO SCH (21:39)
[2018-04-10] MEDS: Simethicone 80 MG Tab.Chew PO PRN (22:53)
[2018-04-10] MEDS: Prochlorperazine 10 MG Tab PO PRN (22:53)
[2018-04-11] MEDS: Furosemide 20 MG Tab PO SCH (06:09)
[2018-04-11] MEDS: Omeprazole 20 MG Cap.CR PO SCH ×2 (06:09→17:36)
[2018-04-11] MEDS: Acetaminophen 500 MG Tab PO SCH ×3 (06:10→22:10)
[2018-04-11] MEDS: Simethicone 80 MG Tab.Chew PO PRN (06:11)
[2018-04-11] MEDS: oxyCODONE ER 10 MG TAB.ER PO SCH ×2 (08:58→21:52)
[2018-04-11] MEDS: Aluminum Hydroxide/Magnesium Hydroxide Susp 30 ML Cup PO PRN (08:58)
[2018-04-11] MEDS: Insulin Detemir 100 Units/ML 3 ML Pen SUBCUT SCH (09:00)
[2018-04-11] MEDS: buPROPion 150 MG Tab.ER PO SCH (09:02)
[2018-04-11] MEDS: Allopurinol 100 MG Tab PO SCH (09:02)
[2018-04-11] MEDS: NYSTATIN TOP SCH ×3 (09:03→21:06)
[2018-04-11] MEDS: Metoprolol Tartrate 100 MG Tab PO SCH ×2 (09:03→21:06)
[2018-04-11] MEDS: Losartan 100 MG Tab PO SCH (09:04)
[2018-04-11] MEDS: Naloxegol Oxalate 25 MG Tab PO SCH (09:04)
[2018-04-11] MEDS: amLODIPine 5 MG Tab PO SCH (09:04)
[2018-04-11] MEDS: Zinc (Zinc Gluconate) 50 MG Tab PO SCH (09:08)
[2018-04-11] MEDS: Docusate Sodium 100 MG Cap PO SCH (09:08)
[2018-04-11] MEDS: Multivitamins with Minerals/Iron/Folic Acid/Lycopene Tab PO SCH (09:08)
[2018-04-11] MEDS: Simvastatin 20 MG Tab PO SCH (21:07)
[2018-04-11] MEDS: ROZEREM 8 MG PO SCH (21:07)
[2018-04-11] MEDS: Sertraline 100 MG Tab PO SCH (21:07)
[2018-04-11] MEDS: Aspirin 81 MG Tab.EC PO SCH (21:52)
[2018-04-12] MEDS: Aluminum Hydroxide/Magnesium Hydroxide Susp 30 ML Cup PO PRN (05:38)
[2018-04-12] MEDS: Omeprazole 20 MG Cap.CR PO SCH ×2 (05:40→18:43)
[2018-04-12] MEDS: Furosemide 20 MG Tab PO SCH ×2 (06:00→15:22)
[2018-04-12] MEDS: Acetaminophen 500 MG Tab PO SCH ×3 (06:00→23:38)
[2018-04-12] MEDS: Allopurinol 100 MG Tab PO SCH (09:11)
[2018-04-12] MEDS: amLODIPine 5 MG Tab PO SCH (09:12)
[2018-04-12] MEDS: buPROPion 150 MG Tab.ER PO SCH (09:13)
[2018-04-12] MEDS: Insulin Detemir 100 Units/ML 3 ML Pen SUBCUT SCH (09:13)
[2018-04-12] MEDS: Chlorthalidone 25 MG Tab PO SCH (09:13)
[2018-04-12] MEDS: Losartan 100 MG Tab PO SCH (09:15)
[2018-04-12] MEDS: Metoprolol Tartrate 100 MG Tab PO SCH ×2 (09:15→20:48)
[2018-04-12] MEDS: Naloxegol Oxalate 25 MG Tab PO SCH (09:16)
[2018-04-12] MEDS: Multivitamins with Minerals/Iron/Folic Acid/Lycopene Tab PO SCH (09:24)
[2018-04-12] MEDS: Zinc (Zinc Gluconate) 50 MG Tab PO SCH (09:24)
[2018-04-12] MEDS: Docusate Sodium 100 MG Cap PO SCH (09:24)
[2018-04-12] MEDS: oxyCODONE ER 10 MG TAB.ER PO SCH ×2 (09:27→20:48)
[2018-04-12] MEDS: Iron Polysaccharides Complex 150 MG Cap PO SCH (09:32)
[2018-04-12] MEDS: NYSTATIN TOP SCH ×3 (10:41→20:52)
[2018-04-12] MEDS: Aspirin 81 MG Tab.EC PO SCH (20:48)
[2018-04-12] MEDS: Sertraline 100 MG Tab PO SCH (20:50)
[2018-04-12] MEDS: ROZEREM 8 MG PO SCH (20:50)
[2018-04-12] MEDS: Simvastatin 20 MG Tab PO SCH (20:51)
[2018-04-13] MEDS: Furosemide 20 MG Tab PO SCH (06:10)
[2018-04-13] MEDS: Omeprazole 20 MG Cap.CR PO SCH ×2 (06:11→17:55)
[2018-04-13] MEDS: Acetaminophen 500 MG Tab PO SCH ×3 (06:11→23:26)
[2018-04-13] MEDS: Docusate Sodium 100 MG Cap PO SCH (08:29)
[2018-04-13] MEDS: Multivitamins with Minerals/Iron/Folic Acid/Lycopene Tab PO SCH (08:29)
[2018-04-13] MEDS: Allopurinol 100 MG Tab PO SCH (08:30)
[2018-04-13] MEDS: buPROPion 150 MG Tab.ER PO SCH (08:31)
[2018-04-13] MEDS: amLODIPine 5 MG Tab PO SCH (08:31)
[2018-04-13] MEDS: Losartan 100 MG Tab PO SCH (08:32)
[2018-04-13] MEDS: Chlorthalidone 25 MG Tab PO SCH (08:32)
[2018-04-13] MEDS: Metoprolol Tartrate 100 MG Tab PO SCH ×2 (08:33→20:07)
[2018-04-13] MEDS: Naloxegol Oxalate 25 MG Tab PO SCH (08:33)
[2018-04-13] MEDS: Zinc (Zinc Gluconate) 50 MG Tab PO SCH (08:34)
[2018-04-13] MEDS: Insulin Detemir 100 Units/ML 3 ML Pen SUBCUT SCH (08:44)
[2018-04-13] MEDS: oxyCODONE ER 10 MG TAB.ER PO SCH ×2 (08:45→20:08)
[2018-04-13] MEDS: NYSTATIN TOP SCH ×3 (14:36→20:07)
[2018-04-13] MEDS: Aspirin 81 MG Tab.EC PO SCH (20:06)
[2018-04-13] MEDS: ROZEREM 8 MG PO SCH (20:08)
[2018-04-13] MEDS: Simvastatin 20 MG Tab PO SCH (20:08)
[2018-04-13] MEDS: Sertraline 100 MG Tab PO SCH (20:08)
[2018-04-14] MEDS: Acetaminophen 500 MG Tab PO SCH ×3 (06:31→23:32)
[2018-04-14] MEDS: Omeprazole 20 MG Cap.CR PO SCH ×2 (06:32→16:52)
[2018-04-14] MEDS: Furosemide 20 MG Tab PO SCH ×2 (06:32→14:24)
[2018-04-14] MEDS: oxyCODONE ER 10 MG TAB.ER PO SCH ×2 (08:35→20:44)
[2018-04-14] MEDS: Multivitamins with Minerals/Iron/Folic Acid/Lycopene Tab PO SCH (08:41)
[2018-04-14] MEDS: Iron Polysaccharides Complex 150 MG Cap PO SCH (08:42)
[2018-04-14] MEDS: Docusate Sodium 100 MG Cap PO SCH (08:42)
[2018-04-14] MEDS: Zinc (Zinc Gluconate) 50 MG Tab PO SCH (08:42)
[2018-04-14] MEDS: Losartan 100 MG Tab PO SCH (08:43)
[2018-04-14] MEDS: Naloxegol Oxalate 25 MG Tab PO SCH (08:43)
[2018-04-14] MEDS: buPROPion 150 MG Tab.ER PO SCH (08:44)
[2018-04-14] MEDS: Allopurinol 100 MG Tab PO SCH (08:44)
[2018-04-14] MEDS: amLODIPine 5 MG Tab PO SCH (08:45)
[2018-04-14] MEDS: Chlorthalidone 25 MG Tab PO SCH (08:45)
[2018-04-14] MEDS: Metoprolol Tartrate 100 MG Tab PO SCH ×2 (08:46→20:44)
[2018-04-14] MEDS: Insulin Detemir 100 Units/ML 3 ML Pen SUBCUT SCH (08:48)
[2018-04-14] MEDS: NYSTATIN TOP SCH ×3 (08:52→20:44)
[2018-04-14] MEDS: Aspirin 81 MG Tab.EC PO SCH (20:43)
[2018-04-14] MEDS: Sertraline 100 MG Tab PO SCH (20:45)
[2018-04-14] MEDS: Simvastatin 20 MG Tab PO SCH (20:45)
[2018-04-14] MEDS: ROZEREM 8 MG PO SCH (20:45)
[2018-04-15] MEDS: Omeprazole 20 MG Cap.CR PO SCH ×2 (06:08→16:55)
[2018-04-15] MEDS: Acetaminophen 500 MG Tab PO SCH ×2 (06:08→14:33)
[2018-04-15] MEDS: Furosemide 20 MG Tab PO SCH (06:08)
[2018-04-15] MEDS: oxyCODONE ER 10 MG TAB.ER PO SCH ×2 (08:39→20:50)
[2018-04-15] MEDS: Docusate Sodium 100 MG Cap PO SCH (08:40)
[2018-04-15] MEDS: Zinc (Zinc Gluconate) 50 MG Tab PO SCH (08:40)
[2018-04-15] MEDS: Multivitamins with Minerals/Iron/Folic Acid/Lycopene Tab PO SCH (08:40)
[2018-04-15] MEDS: NYSTATIN TOP SCH ×3 (08:43→20:51)
[2018-04-15] MEDS: Insulin Detemir 100 Units/ML 3 ML Pen SUBCUT SCH (08:44)
[2018-04-15] MEDS: Allopurinol 100 MG Tab PO SCH (08:45)
[2018-04-15] MEDS: amLODIPine 5 MG Tab PO SCH (08:46)
[2018-04-15] MEDS: Chlorthalidone 25 MG Tab PO SCH (08:46)
[2018-04-15] MEDS: Naloxegol Oxalate 25 MG Tab PO SCH (08:46)
[2018-04-15] MEDS: buPROPion 150 MG Tab.ER PO SCH (08:46)
[2018-04-15] MEDS: Losartan 100 MG Tab PO SCH (08:46)
[2018-04-15] MEDS: Metoprolol Tartrate 100 MG Tab PO SCH ×2 (08:47→20:32)
--- NOTE | 2018-04-15 09:52 | PCM.PN ---
- General Info Date of Service: 04/15/18 Functional Status: Reports: Pain Controlled (Has increased pain however only during physical therapy of her left shoulder) - Review of Systems General: Reports: Weakness HEENT: Reports: No Symptoms Pulmonary: Reports: No Symptoms Cardiovascular: Reports: No Symptoms Gastrointestinal: Reports: Other (Acid reflux periodic mainly after meals) Genitourinary: Reports: No Symptoms Musculoskeletal: Reports: Shoulder Pain (Left shoulder pain on provocative maneuvers), Joint Pain Skin: Reports: Other (Coccyx wound) Neurological: Reports: Pre-Existing Deficit, Weakness. Denies: Syncope, Tremors Psychiatric: Reports: No Symptoms - Patient Data Vitals - Most Recent: Last Vital Signs Temp 98.2 F 04/15/18 06:59 Pulse 66 04/15/18 06:59 Resp 20 04/15/18 06:59 BP 168/70 H 04/15/18 06:59 Pulse Ox 96 04/15/18 06:59 Weight - Most Recent: 195 lb 2 oz I&O - Last 24 Hours: Intake & Output 04/14/18 04/15/18 04/15/18 22:59 06:59 14:59 Intake Total 200 0 Balance 200 0 Lab Results Last 24 Hours: Laboratory Results - last 24 hr 04/15/18 Range/Units 06:35 POC Glucose 135 H (74-106) mg/dl Med Orders - Current: Current Medications Acetaminophen (Tylenol Extra Strength) 1,000 mg PO Q8H [facility] Last Admin: 04/15/18 06:08 Dose: 1,000 mg Al Hydroxide/Mg Hydroxide (Mag-Al Susp) 30 ml PO Q6H PRN PRN Reason: Heartburn Last Admin: 04/12/18 05:38 Dose: 30 ml Aspirin (Halfprin) 81 mg PO BEDTIME [facility] Last Admin: 04/14/18 20:43 Dose: 81 mg Bisacodyl (Dulcolax) 10 mg RECTAL DAILY PRN PRN Reason: Constipation Last Admin: 01/08/18 11:45 Dose: 10 mg Docusate Sodium (Colace) 100 mg PO DAILY [facility] Last Admin: 04/15/18 08:40 Dose: 100 mg Multivitamins/Minerals (Centrum) 1 tab PO DAILY [facility] Last Admin: 04/15/18 08:40 Dose: 1 tab Nystatin (Nystop) 0 gm TOP TID [facility] Last Admin: 04/15/18 08:43 Dose: 1 applic Allopurinol 100 Mg (Tab) 1 each PO DAILY [facility] Last Admin: 04/15/18 08:45 Dose: 1 each Metoprolol Tartrate (100 Mg Tab) 0.5 each PO BID [facility] Last Admin: 04/15/18 08:47 Dose: 0.5 each Simvastatin 20 Mg (Tab) 1 each PO BEDTIME [facility] Last Admin: 04/14/18 20:45 Dose: 1 each Prochlorperazine 10 (Mg Tab) 1 each PO QID PRN PRN Reason: Nausea Last Admin: 04/10/18 22:53 Dose: 1 each Furosemide 20 Mg Tab 1 each PO SuTuThSa@1500 [facility] Last Admin: 04/14/18 14:24 Dose: 1 each Furosemide 20 Mg Tab 1 each PO DAILY@0700 [facility] Last Admin: 04/15/18 06:08 Dose: 1 each Sertraline 100 Mg (Tab) 1.5 each PO BEDTIME [facility] Last Admin: 04/14/18 20:45 Dose: 1.5 each Omeprazole 20 Mg Cap (.Cr) 1 each PO BID@0600,1700 [facility] Last Admin: 04/15/18 06:08 Dose: 1 each Ondansetron 4 Mg Tab 2 each PO TID PRN PRN Reason: nausea or vomitting Last Admin: 04/01/18 17:54 Dose: 2 each Naloxegol Oxalate 25 (Mg Tab) 1 each PO DAILY [facility] Last Admin: 04/15/18 08:46 Dose: 1 each Bupropion 150 Mg Tab (.Er) 1 each PO DAILY [facility] Last Admin: 04/15/18 08:46 Dose: 1 each Losartan 100 Mg Tab 1 each PO DAILY [facility] Last Admin: 04/15/18 08:46 Dose: 1 each Oxycodone Er 10 Mg (Tab.Er) 1 each PO Q12H [facility] Last Admin: 04/15/18 08:39 Dose: 1 each Oxycodone 5 Mg Tab 5 each PO Q6H PRN PRN Reason: Pain Last Admin: 03/15/18 13:07 Dose: 5 each Diclofenac Sodium 1% (Gel 100 Gm Tube) 1 each TOP QID PRN PRN Reason: Pain Last Admin: 03/03/18 08:55 Dose: 1 each Rozerem 8mg Tablet 1 each PO BEDTIME [facility] Last Admin: 04/14/18 20:45 Dose: 1 each Alprazolam 0.25 Mg (Tab) 1 each PO Q8H PRN PRN Reason: Anxiety Amlodipine 5 Mg Tab 1 each PO DAILY [facility] Last Admin: 04/15/18 08:46 Dose: 1 each Chlorthalidone 25 Mg (Tab) 0.5 each PO DAILY [facility] Last Admin: 04/15/18 08:46 Dose: 0.5 each Insulin Detemir 100 (Units/Ml 3 Ml Pen) 38 each SUBCUT DAILY [facility] Last Admin: 04/15/18 08:44 Dose: 38 each Polyethylene Glycol (Miralax) 17 gm PO DAILY PRN PRN Reason: Constipation Last Admin: 03/26/18 14:58 Dose: 17 gm Polysaccharide Iron Complex (Ferrex 150) 150 mg PO Q48H [facility] Last Admin: 04/14/18 08:42 Dose: 150 mg Promethazine HCl (Phenergan) 25 mg IM Q6H PRN PRN Reason: Nausea Last Admin: 01/02/18 18:21 Dose: 25 mg Senna/Docusate Sodium (Senna Plus) 1 tab PO BEDTIME [facility] Last Admin: 04/14/18 20:43 Dose: 1 tab Simethicone (Simethicone) 80 mg PO Q6H PRN PRN Reason: Heartburn Last Admin: 04/11/18 06:11 Dose: 80 mg Zinc Gluconate (Zinc) 50 mg PO DAILY [facility] Last Admin: 04/15/18 08:40 Dose: 50 mg Discontinued Medications Acetaminophen (Tylenol Extra Strength) 1,000 mg PO Q8H [facility] Last Admin: 10/23/17 02:00 Dose: 1,000 mg Acetaminophen (Tylenol Extra Strength) 1,000 mg PO Q8H [facility] Last Admin: 11/22/17 15:12 Dose: 1,000 mg Acetaminophen (Tylenol) Confirm Administered Dose 975 mg .ROUTE .STK-MED ONE Stop: 11/08/17 07:36 Last Admin: 11/08/17 08:28 Dose: 975 mg Hydrocodone Bitart/Acetaminophen ([place] 325-5 Mg) 1 - 2 tab PO Q4H PRN PRN Reason: Moderate Pain Last Admin: 10/24/17 19:26 Dose: 1 tab Al Hydroxide/Mg Hydroxide (Mag-Al Susp) Confirm Administered Dose 30 ml .ROUTE .STK-MED ONE Stop: 01/09/18 21:49 Last Admin: 01/09/18 22:00 Dose: 30 ml Al Hydroxide/Mg Hydroxide (Mag-Al Susp) 30 ml PO Q6H PRN PRN Reason: Heartburn Last Admin: 01/09/18 22:00 Dose: 30 ml Allopurinol (Zyloprim) 100 mg PO DAILY [facility] Last Admin: 02/15/18 08:51 Dose: 100 mg Alprazolam (Xanax) 0.25 mg PO Q8H PRN PRN Reason: Anxiety Last Admin: 02/19/18 02:06 Dose: 0.25 mg Amlodipine Besylate (Norvasc) 5 mg PO DAILY [facility] Last Admin: 02/16/18 08:24 Dose: 5 mg Bacitracin (Bacitracin Oint) 1 gm TOP DAILY PRN PRN Reason: Rash Bisacodyl (Dulcolax) 10 mg RECTAL ONETIME ONE Stop: 12/21/17 04:02 Last Admin: 12/21/17 04:17 Dose: Not Given Bisacodyl (Dulcolax) Confirm Administered Dose 10 mg .ROUTE .STK-MED ONE Stop: 01/08/18 11:37 Last Admin: 01/08/18 16:15 Dose: Not Given Bupropion HCl (Wellbutrin Xl) 150 mg PO DAILY [facility] Last Admin: 02/16/18 08:22 Dose: 150 mg Calcium Carbonate/Glycine (Tums) 500 mg PO TID PRN PRN Reason: Indigestion Ciprofloxacin (Ciprofloxacin Hcl) 500 mg PO BID [facility] Stop: 12/24/17 21:01 Last Admin: 12/24/17 21:04 Dose: 500 mg Al Hydroxide/Mg Hydroxide 40 ml/ Diphenhydramine HCl 12.5 mg/ Lidocaine HCl 40 ml 0 ml PO TID PRN PRN Reason: mouth sores/burning Last Admin: 10/28/17 08:11 Dose: 10 ml Cranberry (Azo Cranberry) 1 each PO BEDTIME [facility] Last Admin: 11/07/17 21:46 Dose: Not Given Diclofenac Sodium (Voltaren 1% Gel) 1 gm TOP QID [facility] Last Admin: 01/26/18 08:10 Dose: Not Given Diclofenac Sodium (Voltaren 1% Gel) 1 gm TOP QID PRN PRN Reason: Pain Last Admin: 02/08/18 20:12 Dose: 1 applic Furosemide (Lasix) 20 mg PO DAILY [facility] Last Admin: 12/13/17 09:25 Dose: 20 mg Furosemide (Lasix) 20 mg PO SUTUTHSA@1700 [facility] Last Admin: 12/12/17 16:01 Dose: 20 mg Furosemide (Lasix) 20 mg PO SuTuThSa@1500 [facility] Last Admin: 02/13/18 14:52 Dose: 20 mg Furosemide (Lasix) 20 mg PO DAILY@0700 [facility] Last Admin: 02/15/18 06:44 Dose: 20 mg Furosemide (Lasix) Confirm Administered Dose 20 mg .ROUTE .STK-MED ONE Stop: 04/03/18 06:35 Last Admin: 04/03/18 09:08 Dose: Not Given Heparin Sodium (Porcine) (Heparin Lock Flush 100 Units/Ml) 500 units FLUSH ASDIRECTED PRN PRN Reason: Other Cefepime HCl 1 gm/ Sodium (Chloride) 50 mls @ 100 mls/hr IV Q8H [facility] Last Admin: 11/01/17 18:52 Dose: Not Given Cefepime HCl 1 gm/ Sodium (Chloride) 50 mls @ 100 mls/hr IV Q24H [facility] Last Admin: 11/07/17 20:32 Dose: 100 mls/hr Sodium Chloride (Normal Saline) Confirm Administered Dose 50 mls @ as directed .ROUTE .STK-MED ONE Stop: 11/02/17 22:10 Last Admin: 11/02/17 23:15 Dose: 100 mls/hr Sodium Chloride (Normal Saline) Confirm Administered Dose 50 mls @ as directed .ROUTE .STK-MED ONE Stop: 11/03/17 21:46 Last Admin: 11/03/17 21:56 Dose: Not Given Sodium Chloride (Normal Saline) 50 mls @ 50 mls/hr IV ASDIRECTED [facility] Albumin Human (Flexbumin 25%) 100 mls @ 50 mls/hr IV ONETIME ONE Stop: 11/22/17 13:59 Last Admin: 11/22/17 13:07 Dose: 50 mls/hr Sodium Chloride (Normal Saline) 250 mls @ 125 mls/hr IV ASDIRECTED [facility] Stop: 11/22/17 21:00 Last Admin: 07/09/18 15:40 Dose: 125 mls/hr Ciprofloxacin/Dextrose (Cipro In D5w 400 Mg/200 Ml) 200 mls @ 200 mls/hr IV Q12H [facility] Last Admin: 11/26/17 06:13 Dose: 200 mls/hr Sodium Chloride (Normal Saline) Confirm Administered Dose 100 mls @ as directed .ROUTE .STK-MED ONE Stop: 11/22/17 20:04 Last Admin: 11/22/17 20:05 Dose: 100 mls/hr Sodium Chloride (Normal Saline) 100 mls @ 200 mls/hr IV ASDIRECTED [facility] Sodium Chloride (Normal Saline) 100 mls @ 20 mls/hr IV DAILY@1900 [facility] Last Admin: 11/25/17 18:08 Dose: 20 mls/hr Insulin Aspart (Novolog) 0 unit SUBCUT WITHMEALSANDBED [facility]; Protocol Stop: 10/31/17 00:00 Last Admin: 10/30/17 21:02 Dose: 5 units Insulin Aspart (Novolog) 2 unit SUBCUT ONETIME ONE Stop: 10/31/17 20:59 Last Admin: 10/31/17 21:07 Dose: 2 units Insulin Aspart (Novolog) 10 unit SUBCUT ONETIME ONE Stop: 11/12/17 17:44 Last Admin: 11/12/17 18:06 Dose: 10 units Insulin Aspart (Novolog) 0 unit SUBCUT TIDMEALS [facility]; Protocol Last Admin: 12/21/17 17:16 Dose: Not Given Insulin Detemir (Levemir) 44 unit SUBCUT DAILY [facility] Last Admin: 10/30/17 10:10 Dose: Not Given Insulin Detemir (Levemir) 40 unit SUBCUT DAILY [facility] Last Admin: 11/14/17 08:22 Dose: 40 units Insulin Detemir (Levemir) 44 unit SUBCUT DAILY [facility] Last Admin: 11/29/17 11:32 Dose: Not Given Insulin Detemir (Levemir) 34 unit SUBCUT DAILY [facility] Last Admin: 12/02/17 10:11 Dose: Not Given Insulin Detemir (Levemir) 30 unit SUBCUT DAILY [facility] Last Admin: 12/20/17 08:02 Dose: 30 units Insulin Detemir (Levemir) 40 unit SUBCUT DAILY [facility] Last Admin: 02/09/18 08:17 Dose: 40 units Insulin Detemir (Levemir) 10 unit SUBCUT ONETIME ONE Stop: 12/20/17 13:01 Last Admin: 12/20/17 14:38 Dose: 10 units Insulin Detemir (Levemir) 42 unit SUBCUT DAILY [facility] Last Admin: 02/16/18 08:24 Dose: 42 unit Lidocaine/Epinephrine (Xylocaine 1% With Epinephrine 1:100,000) 3 ml INJECT ONETIME ONE Stop: 11/05/17 09:01 Last Admin: 11/05/17 09:00 Dose: 3 ml Loperamide HCl (Imodium) 2 mg PO ASDIRECTED PRN PRN Reason: Diarrhea Last Admin: 11/30/17 05:53 Dose: 2 mg Lorazepam (Ativan) 0.25 mg PO Q8H PRN PRN Reason: Anxiety Last Admin: 12/13/17 18:03 Dose: 0.25 mg Lorazepam (Ativan) 0.25 mg PO Q8H PRN PRN Reason: Anxiety Losartan Potassium (Cozaar) 25 mg PO DAILY [facility] Last Admin: 11/27/17 09:05 Dose: 25 mg Losartan Potassium (Cozaar) 50 mg PO DAILY [facility] Last Admin: 12/25/17 08:57 Dose: 50 mg Losartan Potassium (Cozaar) 75 mg PO DAILY [facility] Last Admin: 01/17/18 08:26 Dose: 75 mg Losartan Potassium (Cozaar) 100 mg PO DAILY [facility] Last Admin: 02/16/18 08:24 Dose: 100 mg Magnesium Hydroxide (Milk Of Magnesia) 30 ml PO DAILY PRN PRN Reason: Constipation Last Admin: 10/26/17 09:10 Dose: 30 ml Melatonin (Melatonin) 6 mg PO BEDTIME [facility] Metoprolol Tartrate (Lopressor) 50 mg PO BID [facility] Last Admin: 02/15/18 08:51 Dose: 50 mg Multivitamins/Minerals (Centrum) 1 tab PO DAILY [facility] Last Admin: 12/20/17 08:03 Dose: 1 tab Multivitamins/Minerals (Centrum) 1 tab PO DAILY@1200 [facility] Last Admin: 12/27/17 11:36 Dose: 1 tab Mupirocin (Bactroban Crm) 1 gm TOP TID [facility] Last Admin: 10/29/17 11:29 Dose: Not Given Mupirocin (Bactroban Oint) 0 gm TOP DAILY [facility] Last Admin: 12/06/17 10:12 Dose: 1 applic Naloxegol (Movantik) 25 mg PO DAILY [facility] Last Admin: 02/16/18 08:22 Dose: 25 mg Insulin Degludec ( (Tresiba) 44units) 44 units SUBCUT DAILY [facility] Nystatin (Nystop) 0 gm TOP BID [facility] Last Admin: 10/25/17 08:58 Dose: 1 applic Nystatin (Nystop) 0 gm TOP TID [facility] Last Admin: 10/26/17 11:15 Dose: Not Given Nystatin (Nystatin Ointment) 0 gm TOP TID [facility] Last Admin: 11/04/17 15:49 Dose: Not Given Nystatin (Nystatin Ointment) 1 gm TOP DAILY PRN PRN Reason: Rash Last Admin: 12/26/17 08:19 Dose: 1 applic Nystatin (Nystatin Ointment) 1 gm TOP BID [facility] Last Admin: 01/01/18 09:12 Dose: Not Given Nystatin (Nystatin Ointment) 1 gm TOP BID PRN PRN Reason: Rash Nystatin (Nystatin Ointment) 0 gm TOP BID PRN PRN Reason: Rash Olanzapine (Zyprexa) 10 mg PO ASDIRECTED [facility] Olanzapine (Zyprexa) 10 mg PO BEDTIME [facility] Stop: 11/14/17 21:01 Last Admin: 11/14/17 21:28 Dose: 10 mg Olanzapine (Zyprexa) 10 mg PO BEDTIME [facility] Stop: 11/22/17 21:01 Last Admin: 11/22/17 21:41 Dose: 10 mg Omeprazole (Omeprazole) 20 mg PO SUTUTHSA@2100 [facility] Last Admin: 10/23/17 21:24 Dose: 20 mg Omeprazole (Omeprazole) 20 mg PO DAILY@2100 [facility] Last Admin: 12/11/17 20:18 Dose: 20 mg Omeprazole (Omeprazole) 20 mg PO BID [facility] Last Admin: 12/13/17 09:27 Dose: 20 mg Omeprazole (Omeprazole) 20 mg PO BIDAC [facility] Last Admin: 12/17/17 16:45 Dose: 20 mg Omeprazole (Omeprazole) 20 mg PO DAILY@0600,1700 [facility] Last Admin: 01/20/18 06:27 Dose: 20 mg Omeprazole (Omeprazole) 20 mg PO BID@0600,1700 [facility] Last Admin: 02/15/18 06:44 Dose: 20 mg Omeprazole (Omeprazole) Confirm Administered Dose 20 mg .ROUTE .STK-MED ONE Stop: 04/03/18 06:36 Last Admin: 04/03/18 09:08 Dose: Not Given Ondansetron HCl (Zofran Odt) 8 mg PO TID PRN PRN Reason: nausea or vomitting Last Admin: 01/26/18 17:53 Dose: 8 mg Oxycodone HCl (Oxycodone) 5 mg PO Q6H [facility] Last Admin: 10/23/17 06:11 Dose: 5 mg Oxycodone HCl (Oxycodone) 5 mg PO Q6H [facility] Last Admin: 10/24/17 06:21 Dose: Not Given Oxycodone HCl (Oxycodone) 5 mg PO Q6H PRN PRN Reason: Pain Last Admin: 02/14/18 13:38 Dose: 5 mg Oxycodone HCl (Oxycodone) 5 mg PO BEDTIME [facility] Last Admin: 12/07/17 20:02 Dose: 5 mg Oxycodone HCl (Oxycodone) 5 mg PO ONETIME ONE Stop: 11/23/17 18:12 Last Admin: 11/23/17 18:48 Dose: 5 mg Oxycodone HCl (Oxycodone) 7.5 mg PO BEDTIME [facility] Stop: 12/13/17 23:00 Last Admin: 12/13/17 20:05 Dose: 7.5 mg Oxycodone HCl (Oxycodone) 5 mg PO ONETIME ONE Stop: 12/13/17 17:59 Last Admin: 12/13/17 18:21 Dose: 5 mg Oxycodone HCl (Oxycontin) 10 mg PO Q12H [facility] Last Admin: 02/16/18 08:22 Dose: 10 mg Oxycodone HCl (Oxycontin) Confirm Administered Dose 10 mg .ROUTE .STK-MED ONE Stop: 12/31/17 11:25 Last Admin: 12/31/17 11:26 Dose: 10 mg Amlodipine 5 Mg Tab 5 each PO DAILY [facility] Last Admin: 03/07/18 08:22 Dose: 5 each Insulin Detemir 100 (Units/Ml 3 Ml Pen) 42 each SUBCUT DAILY [facility] Last Admin: 04/11/18 09:00 Dose: 42 each Nystatin Cream 30gm (Tube) 1 each TOP BID PRN PRN Reason: Rash Last Admin: 04/07/18 11:25 Dose: 1 each Polysaccharide Iron Complex (Ferrex 150) 150 mg PO DAILY [facility] Last Admin: 12/20/17 08:05 Dose: 150 mg Polysaccharide Iron Complex (Ferrex 150) 150 mg PO DAILY@1200 [facility] Last Admin: 12/27/17 11:36 Dose: 150 mg Polysaccharide Iron Complex (Ferrex 150) 150 mg PO DAILY [facility] Last Admin: 02/09/18 08:17 Dose: 150 mg Polysaccharide Iron Complex (Ferrex 150) 150 mg PO Q48H [facility] Last Admin: 02/09/18 11:46 Dose: Not Given Prochlorperazine Maleate (Compazine) 10 mg PO QID PRN PRN Reason: Nausea Prochlorperazine Maleate (Compazine) 10 mg PO QID PRN PRN Reason: Nausea Last Admin: 01/16/18 20:25 Dose: 10 mg Ramelteon (Rozerem) 8 mg PO BEDTIME [facility] Last Admin: 02/16/18 22:33 Dose: 8 mg Senna/Docusate Sodium (Senna Plus) 1 tab PO BID PRN PRN Reason: Constipation Last Admin: 10/28/17 08:08 Dose: 1 tab Senna/Docusate Sodium (Senna Plus) 1 tab PO BID [facility] Last Admin: 11/04/17 15:49 Dose: Not Given Senna/Docusate Sodium (Senna Plus) 1 - 2 tab PO DAILY PRN PRN Reason: Constipation Sertraline HCl (Zoloft) 100 mg PO BEDTIME [facility] Last Admin: 01/07/18 20:58 Dose: 100 mg Sertraline HCl (Zoloft) 150 mg PO BEDTIME [facility] Last Admin: 02/14/18 20:02 Dose: 150 mg Simvastatin (Zocor) 40 mg PO BEDTIME [facility] Last Admin: 02/14/18 20:03 Dose: 40 mg Sodium Chloride ([place] Nasal [place]) 1 ml ALDO QID PRN PRN Reason: Dryness Last Admin: 11/12/17 21:03 Dose: 1 spray Sodium Chloride (Normal Saline) 20 ml FLUSH ASDIRECTED PRN PRN Reason: Other Sodium Chloride (Saline Flush) 20 ml FLUSH Q8H [facility] Last Admin: 11/02/17 10:46 Dose: Not Given Sodium Chloride (Saline Flush) 20 ml FLUSH Q8H [facility] Last Admin: 11/11/17 12:20 Dose: Not Given Zinc Gluconate (Zinc) 50 mg PO DAILY [facility] Last Admin: 12/20/17 08:05 Dose: 50 mg Zinc Gluconate (Zinc) 50 mg PO DAILY@1200 [facility] Last Admin: 12/27/17 11:35 Dose: 50 mg - Exam Quality Assessment: Skin Breakdown. No: Supplemental Oxygen General: Alert (Early healing coccyx wound), Oriented Neck: Supple Lungs: Clear to Auscultation, Normal Respiratory Effort Cardiovascular: Regular Rate, Regular Rhythm GI/Abdominal Exam: Soft Skin: Other (Decubitus ulcer good granulation base coccyx, 2 cm superior tracking, healing however very slow, signs of infection) Wound/Incisions: No Drainage, Decubitis (Decubitus ulcer good granulation base coccyx, 2 cm superior tracking, healing however very slow, signs of infection) Neurological: No New Focal Deficit Psy/Mental Status: Alert, Normal Affect, Normal Mood - Problem List Review Problem List Initiated/Reviewed/Updated: Yes - Plan Plan:: HPI: This is a 76 year old female who had previously been in swing bed status due to a left humeral fracture and deconditioning. The patient has been recently diagnosed with peritoneal carcinomatosis. The patient was sent up to [facility] on 10/20/17 for abdominal paracentesis and pleurx catheter placement. She had labs done that day which showed a hemoglobin of 6.5. She was then admitted to their hospitalist services. She was given 2 units of PRBCs. She was due for her second cycle of carboplatin and taxol while there and this was completed on 10/21/17. She was also given Neulasta prior to discharge. The patient was admitted back to swing bed status for rehabilitation of her fracture and deconditioning. PRIMARY HOSPITAL PROBLEMS Left humeral head fracture. Patient with periodic pain however mainly on movement/PT manipulation She does have significant limitations in her left arm with almost no ability to abduct 30 however ongoing physical therapy is assisting with ROM and strengthening. 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 Decubitus ulcer good granulation base coccyx, 2 cm superior tracking, healing however very slow, signs of infection Deconditioning. Continue physical therapy Immunocompromised host. No fever no infectious process. SECONDARY ASSESSMENT/PLAN: Malignant ascites. PleurX catheter clogged. Unsuccessful attempt upon removing in the past. Anemia due to antineoplastic chemotherapy. recent hemoglobin Hgb stable at 12.3. Reassess Anxiety, very stable, Much improved affect Primary peritoneal carcinomatosis. Followed by Dr. Collier/oncology with ongoing Pleurx abdominal drain however is clogged. History of endometrial cancer, s/p hysterceomty 2009. CAD, no ischemic picture, stable. HTN. Continue lopressor and losartan and Norvasc 5 mg Aortic stenosis. History of atrial flutter. T2dm 2 DM. Adequate fasting Accuchecks daily. Tresiba switched to levemir daily due to not being available in house. 42 units CKD stage 3. Creatinine acceptable Hyperlipidemia. Continue simvastatin. Obesity. Gout. Continue allopurinol 100 mg daily. Diabetic retinopathy. Depression. Continue zoloft. GERD. Continue omeprazole bid, limit fluids during meals, patient positioning after meals OAB. Osteoarthritis. History of hypercalcemia. Recent Hypoalbuminemia. DVT prophylaxis. Score of 6, Continue with phan stockings. Overall plan: Continue an SNF with PT. Continue with physical therapy with left humeral exercises. reassess CBC, BMP, At one point patient was conducive to revisiting oncologist however with consultation with her family she has changed her mind. Anticipate discharge to long-term care after [place].
[2018-04-15 11:31] LABS: ANION GAP 13.8 mmol/L (5-15)
[2018-04-15] MEDS: Sertraline 100 MG Tab PO SCH (20:31)
[2018-04-15] MEDS: Aspirin 81 MG Tab.EC PO SCH (20:31)
[2018-04-15] MEDS: ROZEREM 8 MG PO SCH (20:32)
[2018-04-15] MEDS: Simvastatin 20 MG Tab PO SCH (20:32)
[2018-04-16] MEDS: Acetaminophen 500 MG Tab PO SCH ×4 (06:37→22:51)
[2018-04-16] MEDS: Omeprazole 20 MG Cap.CR PO SCH ×2 (06:39→16:51)
[2018-04-16] MEDS: Furosemide 20 MG Tab PO SCH ×2 (06:39→14:31)
[2018-04-16] MEDS: Zinc (Zinc Gluconate) 50 MG Tab PO SCH (08:14)
[2018-04-16] MEDS: Iron Polysaccharides Complex 150 MG Cap PO SCH (08:14)
[2018-04-16] MEDS: Multivitamins with Minerals/Iron/Folic Acid/Lycopene Tab PO SCH (08:14)
[2018-04-16] MEDS: Docusate Sodium 100 MG Cap PO SCH (08:14)
[2018-04-16] MEDS: Allopurinol 100 MG Tab PO SCH (08:15)
[2018-04-16] MEDS: NYSTATIN TOP SCH ×3 (08:15→20:33)
[2018-04-16] MEDS: oxyCODONE ER 10 MG TAB.ER PO SCH ×2 (08:15→20:30)
[2018-04-16] MEDS: buPROPion 150 MG Tab.ER PO SCH (08:16)
[2018-04-16] MEDS: Chlorthalidone 25 MG Tab PO SCH (08:16)
[2018-04-16] MEDS: amLODIPine 5 MG Tab PO SCH (08:16)
[2018-04-16] MEDS: Losartan 100 MG Tab PO SCH (08:17)
[2018-04-16] MEDS: Metoprolol Tartrate 100 MG Tab PO SCH ×2 (08:17→20:31)
[2018-04-16] MEDS: Naloxegol Oxalate 25 MG Tab PO SCH (08:17)
[2018-04-16] MEDS: Insulin Detemir 100 Units/ML 3 ML Pen SUBCUT SCH (08:18)
[2018-04-16] MEDS: Aspirin 81 MG Tab.EC PO SCH (20:30)
[2018-04-16] MEDS: Simvastatin 20 MG Tab PO SCH (20:31)
[2018-04-16] MEDS: ROZEREM 8 MG PO SCH (20:31)
[2018-04-16] MEDS: Sertraline 100 MG Tab PO SCH (20:32)
[2018-04-17] MEDS: Acetaminophen 500 MG Tab PO SCH ×3 (06:35→22:06)
[2018-04-17] MEDS: Furosemide 20 MG Tab PO SCH ×2 (06:36→14:02)
[2018-04-17] MEDS: Omeprazole 20 MG Cap.CR PO SCH ×2 (06:37→16:35)
[2018-04-17] MEDS: Multivitamins with Minerals/Iron/Folic Acid/Lycopene Tab PO SCH (08:46)
[2018-04-17] MEDS: NYSTATIN TOP SCH ×4 (08:46→21:28)
[2018-04-17] MEDS: Zinc (Zinc Gluconate) 50 MG Tab PO SCH (08:46)
[2018-04-17] MEDS: Docusate Sodium 100 MG Cap PO SCH (08:46)
[2018-04-17] MEDS: Insulin Detemir 100 Units/ML 3 ML Pen SUBCUT SCH (08:47)
[2018-04-17] MEDS: Losartan 100 MG Tab PO SCH (08:49)
[2018-04-17] MEDS: Chlorthalidone 25 MG Tab PO SCH (08:49)
[2018-04-17] MEDS: Metoprolol Tartrate 100 MG Tab PO SCH ×2 (08:49→21:26)
[2018-04-17] MEDS: buPROPion 150 MG Tab.ER PO SCH (08:49)
[2018-04-17] MEDS: amLODIPine 5 MG Tab PO SCH (08:50)
[2018-04-17] MEDS: Naloxegol Oxalate 25 MG Tab PO SCH (08:50)
[2018-04-17] MEDS: Allopurinol 100 MG Tab PO SCH (08:50)
[2018-04-17] MEDS: oxyCODONE ER 10 MG TAB.ER PO SCH ×2 (08:51→21:25)
[2018-04-17] MEDS: Simethicone 80 MG Tab.Chew PO PRN (09:04)
[2018-04-17] MEDS: Aspirin 81 MG Tab.EC PO SCH (21:25)
[2018-04-17] MEDS: Sertraline 100 MG Tab PO SCH (21:26)
[2018-04-17] MEDS: Simvastatin 20 MG Tab PO SCH (21:26)
[2018-04-17] MEDS: ROZEREM 8 MG PO SCH (21:26)
[2018-04-18] MEDS: Acetaminophen 500 MG Tab PO SCH ×3 (06:27→23:43)
[2018-04-18] MEDS: Omeprazole 20 MG Cap.CR PO SCH ×2 (06:27→17:56)
[2018-04-18] MEDS: Furosemide 20 MG Tab PO SCH (06:27)
[2018-04-18 08:07] LABS: ANION GAP 13.5 mmol/L (5-15)
[2018-04-18] MEDS: Multivitamins with Minerals/Iron/Folic Acid/Lycopene Tab PO SCH (08:37)
[2018-04-18] MEDS: Docusate Sodium 100 MG Cap PO SCH (08:38)
[2018-04-18] MEDS: Iron Polysaccharides Complex 150 MG Cap PO SCH (08:38)
[2018-04-18] MEDS: Chlorthalidone 25 MG Tab PO SCH (08:38)
[2018-04-18] MEDS: Zinc (Zinc Gluconate) 50 MG Tab PO SCH (08:38)
[2018-04-18] MEDS: buPROPion 150 MG Tab.ER PO SCH (08:39)
[2018-04-18] MEDS: amLODIPine 5 MG Tab PO SCH (08:40)
[2018-04-18] MEDS: Losartan 100 MG Tab PO SCH (08:40)
[2018-04-18] MEDS: Allopurinol 100 MG Tab PO SCH (08:41)
[2018-04-18] MEDS: Naloxegol Oxalate 25 MG Tab PO SCH (08:41)
[2018-04-18] MEDS: Metoprolol Tartrate 100 MG Tab PO SCH ×2 (08:43→20:16)
[2018-04-18] MEDS: oxyCODONE ER 10 MG TAB.ER PO SCH ×2 (08:44→20:15)
[2018-04-18] MEDS: Insulin Detemir 100 Units/ML 3 ML Pen SUBCUT SCH (08:45)
[2018-04-18] MEDS: NYSTATIN TOP SCH ×3 (11:30→20:15)
[2018-04-18] MEDS: Aspirin 81 MG Tab.EC PO SCH (20:15)
[2018-04-18] MEDS: Simvastatin 20 MG Tab PO SCH (20:17)
[2018-04-18] MEDS: ROZEREM 8 MG PO SCH (20:17)
[2018-04-18] MEDS: Sertraline 100 MG Tab PO SCH (20:17)
[2018-04-19] MEDS: Omeprazole 20 MG Cap.CR PO SCH ×2 (06:11→16:40)
[2018-04-19] MEDS: Acetaminophen 500 MG Tab PO SCH ×3 (06:11→23:42)
[2018-04-19] MEDS: Furosemide 20 MG Tab PO SCH ×2 (06:12→15:16)
[2018-04-19] MEDS: Insulin Detemir 100 Units/ML 3 ML Pen SUBCUT SCH (08:28)
[2018-04-19] MEDS: Docusate Sodium 100 MG Cap PO SCH (08:28)
[2018-04-19] MEDS: Metoprolol Tartrate 100 MG Tab PO SCH ×2 (08:28→20:35)
[2018-04-19] MEDS: Multivitamins with Minerals/Iron/Folic Acid/Lycopene Tab PO SCH (08:28)
[2018-04-19] MEDS: Zinc (Zinc Gluconate) 50 MG Tab PO SCH (08:28)
[2018-04-19] MEDS: Chlorthalidone 25 MG Tab PO SCH (08:29)
[2018-04-19] MEDS: Allopurinol 100 MG Tab PO SCH (08:30)
[2018-04-19] MEDS: Naloxegol Oxalate 25 MG Tab PO SCH (08:30)
[2018-04-19] MEDS: amLODIPine 5 MG Tab PO SCH (08:30)
[2018-04-19] MEDS: buPROPion 150 MG Tab.ER PO SCH (08:30)
[2018-04-19] MEDS: Losartan 100 MG Tab PO SCH (08:30)
[2018-04-19] MEDS: NYSTATIN TOP SCH ×3 (08:31→20:34)
[2018-04-19] MEDS: oxyCODONE ER 10 MG TAB.ER PO SCH ×2 (08:38→20:35)
[2018-04-19] MEDS: Aspirin 81 MG Tab.EC PO SCH (20:35)
[2018-04-19] MEDS: Simvastatin 20 MG Tab PO SCH (20:36)
[2018-04-19] MEDS: ROZEREM 8 MG PO SCH (20:36)
[2018-04-19] MEDS: Sertraline 100 MG Tab PO SCH (20:36)
[2018-04-20] MEDS: Omeprazole 20 MG Cap.CR PO SCH ×2 (06:13→16:44)
[2018-04-20] MEDS: Acetaminophen 500 MG Tab PO SCH ×3 (06:13→22:32)
[2018-04-20] MEDS: Furosemide 20 MG Tab PO SCH (06:13)
[2018-04-20] MEDS: Docusate Sodium 100 MG Cap PO SCH (08:28)
[2018-04-20] MEDS: Iron Polysaccharides Complex 150 MG Cap PO SCH (08:28)
[2018-04-20] MEDS: Insulin Detemir 100 Units/ML 3 ML Pen SUBCUT SCH (08:29)
[2018-04-20] MEDS: oxyCODONE ER 10 MG TAB.ER PO SCH ×2 (08:29→21:56)
[2018-04-20] MEDS: Zinc (Zinc Gluconate) 50 MG Tab PO SCH (08:29)
[2018-04-20] MEDS: Multivitamins with Minerals/Iron/Folic Acid/Lycopene Tab PO SCH (08:29)
[2018-04-20] MEDS: Chlorthalidone 25 MG Tab PO SCH (08:30)
[2018-04-20] MEDS: Metoprolol Tartrate 100 MG Tab PO SCH ×2 (08:30→20:35)
[2018-04-20] MEDS: Allopurinol 100 MG Tab PO SCH (08:31)
[2018-04-20] MEDS: buPROPion 150 MG Tab.ER PO SCH (08:31)
[2018-04-20] MEDS: amLODIPine 5 MG Tab PO SCH (08:31)
[2018-04-20] MEDS: Losartan 100 MG Tab PO SCH (08:31)
[2018-04-20] MEDS: Naloxegol Oxalate 25 MG Tab PO SCH (08:31)
[2018-04-20] MEDS: NYSTATIN TOP SCH ×3 (08:32→20:37)
[2018-04-20] MEDS: Aspirin 81 MG Tab.EC PO SCH (20:35)
[2018-04-20] MEDS: Sertraline 100 MG Tab PO SCH (20:36)
[2018-04-20] MEDS: Simvastatin 20 MG Tab PO SCH (20:36)
[2018-04-20] MEDS: ROZEREM 8 MG PO SCH (20:36)
[2018-04-21] MEDS: Acetaminophen 500 MG Tab PO SCH ×3 (06:22→23:45)
[2018-04-21] MEDS: Furosemide 20 MG Tab PO SCH ×2 (06:22→14:15)
[2018-04-21] MEDS: Omeprazole 20 MG Cap.CR PO SCH ×2 (06:22→16:54)
[2018-04-21] MEDS: Multivitamins with Minerals/Iron/Folic Acid/Lycopene Tab PO SCH (08:51)
[2018-04-21] MEDS: amLODIPine 5 MG Tab PO SCH (08:51)
[2018-04-21] MEDS: oxyCODONE ER 10 MG TAB.ER PO SCH ×2 (08:51→21:51)
[2018-04-21] MEDS: Zinc (Zinc Gluconate) 50 MG Tab PO SCH (08:51)
[2018-04-21] MEDS: Docusate Sodium 100 MG Cap PO SCH (08:51)
[2018-04-21] MEDS: Allopurinol 100 MG Tab PO SCH (08:52)
[2018-04-21] MEDS: buPROPion 150 MG Tab.ER PO SCH (08:53)
[2018-04-21] MEDS: Losartan 100 MG Tab PO SCH (08:53)
[2018-04-21] MEDS: Chlorthalidone 25 MG Tab PO SCH (08:53)
[2018-04-21] MEDS: Naloxegol Oxalate 25 MG Tab PO SCH (08:54)
[2018-04-21] MEDS: Ondansetron 4 MG Tab PO PRN (08:54)
[2018-04-21] MEDS: Insulin Detemir 100 Units/ML 3 ML Pen SUBCUT SCH (08:55)
[2018-04-21] MEDS: NYSTATIN TOP SCH (08:55)
[2018-04-21] MEDS: Metoprolol Tartrate 100 MG Tab PO SCH ×2 (08:55→21:51)
[2018-04-21] MEDS: Aspirin 81 MG Tab.EC PO SCH (21:51)
[2018-04-21] MEDS: Sertraline 100 MG Tab PO SCH (21:52)
[2018-04-21] MEDS: Simvastatin 20 MG Tab PO SCH (21:53)
[2018-04-21] MEDS: ROZEREM 8 MG PO SCH (21:53)
[2018-04-22] MEDS: Omeprazole 20 MG Cap.CR PO SCH ×2 (05:56→16:44)
[2018-04-22] MEDS: Acetaminophen 500 MG Tab PO SCH ×3 (06:00→22:38)
[2018-04-22] MEDS: Furosemide 20 MG Tab PO SCH (06:00)
[2018-04-22] MEDS: Iron Polysaccharides Complex 150 MG Cap PO SCH (08:01)
[2018-04-22] MEDS: Multivitamins with Minerals/Iron/Folic Acid/Lycopene Tab PO SCH (08:01)
[2018-04-22] MEDS: Docusate Sodium 100 MG Cap PO SCH (08:01)
[2018-04-22] MEDS: Allopurinol 100 MG Tab PO SCH (08:02)
[2018-04-22] MEDS: amLODIPine 5 MG Tab PO SCH (08:02)
[2018-04-22] MEDS: buPROPion 150 MG Tab.ER PO SCH (08:03)
[2018-04-22] MEDS: Chlorthalidone 25 MG Tab PO SCH (08:04)
[2018-04-22] MEDS: Losartan 100 MG Tab PO SCH (08:04)
[2018-04-22] MEDS: Naloxegol Oxalate 25 MG Tab PO SCH (08:05)
[2018-04-22] MEDS: Zinc (Zinc Gluconate) 50 MG Tab PO SCH (08:05)
[2018-04-22] MEDS: Metoprolol Tartrate 100 MG Tab PO SCH ×2 (08:05→20:20)
[2018-04-22] MEDS: Insulin Detemir 100 Units/ML 3 ML Pen SUBCUT SCH (08:06)
[2018-04-22] MEDS: oxyCODONE ER 10 MG TAB.ER PO SCH ×2 (08:08→20:20)
[2018-04-22] MEDS: Nystatin Topical Powder 15 GM Bottle TOP SCH (09:45)
[2018-04-22] MEDS: Aspirin 81 MG Tab.EC PO SCH (20:19)
[2018-04-22] MEDS: ROZEREM 8 MG PO SCH (20:19)
[2018-04-22] MEDS: Simvastatin 20 MG Tab PO SCH (20:19)
[2018-04-22] MEDS: Sertraline 100 MG Tab PO SCH (20:20)
[2018-04-22] MEDS: Promethazine 25 MG/ML SDV IM PRN (21:37)
[2018-04-22] MEDS: Aluminum Hydroxide/Magnesium Hydroxide Susp 30 ML Cup PO PRN (21:41)
[2018-04-22] MEDS: Simethicone 80 MG Tab.Chew PO PRN (22:38)
[2018-04-23] MEDS: Acetaminophen 500 MG Tab PO SCH ×3 (06:37→23:13)
[2018-04-23] MEDS: Furosemide 20 MG Tab PO SCH ×2 (06:38→14:08)
[2018-04-23] MEDS: Omeprazole 20 MG Cap.CR PO SCH ×2 (06:39→16:49)
[2018-04-23] MEDS: Nystatin Topical Powder 15 GM Bottle TOP SCH (08:37)
[2018-04-23] MEDS: Insulin Detemir 100 Units/ML 3 ML Pen SUBCUT SCH (08:38)
[2018-04-23] MEDS: Simethicone 80 MG Tab.Chew PO PRN (08:38)
[2018-04-23] MEDS: Chlorthalidone 25 MG Tab PO SCH (08:39)
[2018-04-23] MEDS: Naloxegol Oxalate 25 MG Tab PO SCH (08:39)
[2018-04-23] MEDS: Losartan 100 MG Tab PO SCH (08:39)
[2018-04-23] MEDS: oxyCODONE ER 10 MG TAB.ER PO SCH ×2 (08:39→23:11)
[2018-04-23] MEDS: Allopurinol 100 MG Tab PO SCH (08:39)
[2018-04-23] MEDS: Docusate Sodium 100 MG Cap PO SCH (08:40)
[2018-04-23] MEDS: Zinc (Zinc Gluconate) 50 MG Tab PO SCH (08:40)
[2018-04-23] MEDS: buPROPion 150 MG Tab.ER PO SCH (08:40)
[2018-04-23] MEDS: Multivitamins with Minerals/Iron/Folic Acid/Lycopene Tab PO SCH (08:40)
[2018-04-23] MEDS: amLODIPine 5 MG Tab PO SCH (08:40)
[2018-04-23] MEDS: Metoprolol Tartrate 100 MG Tab PO SCH ×2 (08:41→23:14)
[2018-04-23] MEDS: Sertraline 100 MG Tab PO SCH (23:13)
[2018-04-23] MEDS: Aspirin 81 MG Tab.EC PO SCH (23:13)
[2018-04-23] MEDS: ROZEREM 8 MG PO SCH (23:13)
[2018-04-23] MEDS: Simvastatin 20 MG Tab PO SCH (23:14)
[2018-04-24] MEDS: Omeprazole 20 MG Cap.CR PO SCH ×2 (06:23→17:53)
[2018-04-24] MEDS: Furosemide 20 MG Tab PO SCH ×2 (06:23→15:33)
[2018-04-24] MEDS: Acetaminophen 500 MG Tab PO SCH ×3 (06:23→22:38)
[2018-04-24] MEDS: Multivitamins with Minerals/Iron/Folic Acid/Lycopene Tab PO SCH (08:06)
[2018-04-24] MEDS: Allopurinol 100 MG Tab PO SCH (08:06)
[2018-04-24] MEDS: Iron Polysaccharides Complex 150 MG Cap PO SCH (08:06)
[2018-04-24] MEDS: Docusate Sodium 100 MG Cap PO SCH (08:06)
[2018-04-24] MEDS: amLODIPine 5 MG Tab PO SCH (08:07)
[2018-04-24] MEDS: buPROPion 150 MG Tab.ER PO SCH (08:09)
[2018-04-24] MEDS: Chlorthalidone 25 MG Tab PO SCH (08:09)
[2018-04-24] MEDS: Insulin Detemir 100 Units/ML 3 ML Pen SUBCUT SCH (08:10)
[2018-04-24] MEDS: Losartan 100 MG Tab PO SCH (08:11)
[2018-04-24] MEDS: Metoprolol Tartrate 100 MG Tab PO SCH ×2 (08:12→20:30)
[2018-04-24] MEDS: Zinc (Zinc Gluconate) 50 MG Tab PO SCH (08:13)
[2018-04-24] MEDS: Naloxegol Oxalate 25 MG Tab PO SCH (08:13)
[2018-04-24] MEDS: oxyCODONE ER 10 MG TAB.ER PO SCH ×2 (08:13→21:17)
[2018-04-24] MEDS: Nystatin Topical Powder 15 GM Bottle TOP PRN (09:30)
[2018-04-24] MEDS: Nystatin Topical Powder 15 GM Bottle TOP SCH (09:30)
[2018-04-24] MEDS: Sertraline 100 MG Tab PO SCH (20:28)
[2018-04-24] MEDS: Aspirin 81 MG Tab.EC PO SCH (20:28)
[2018-04-24] MEDS: ROZEREM 8 MG PO SCH (20:28)
[2018-04-24] MEDS: Simvastatin 20 MG Tab PO SCH (20:28)
[2018-04-24] MEDS: Simethicone 80 MG Tab.Chew PO PRN (21:17)
[2018-04-25] MEDS: Acetaminophen 500 MG Tab PO SCH ×3 (06:20→22:01)
[2018-04-25] MEDS: Omeprazole 20 MG Cap.CR PO SCH ×2 (06:20→17:07)
[2018-04-25] MEDS: Furosemide 20 MG Tab PO SCH (06:20)
[2018-04-25] MEDS: Allopurinol 100 MG Tab PO SCH (08:50)
[2018-04-25] MEDS: Chlorthalidone 25 MG Tab PO SCH (08:50)
[2018-04-25] MEDS: oxyCODONE ER 10 MG TAB.ER PO SCH ×2 (08:50→20:34)
[2018-04-25] MEDS: amLODIPine 5 MG Tab PO SCH (08:51)
[2018-04-25] MEDS: buPROPion 150 MG Tab.ER PO SCH (08:52)
[2018-04-25] MEDS: Nystatin Topical Powder 15 GM Bottle TOP SCH (08:53)
[2018-04-25] MEDS: Docusate Sodium 100 MG Cap PO SCH (08:53)
[2018-04-25] MEDS: Losartan 100 MG Tab PO SCH (08:53)
[2018-04-25] MEDS: Zinc (Zinc Gluconate) 50 MG Tab PO SCH (08:53)
[2018-04-25] MEDS: Multivitamins with Minerals/Iron/Folic Acid/Lycopene Tab PO SCH (08:53)
[2018-04-25] MEDS: Naloxegol Oxalate 25 MG Tab PO SCH (08:54)
[2018-04-25] MEDS: Metoprolol Tartrate 100 MG Tab PO SCH ×2 (08:54→20:35)
[2018-04-25] MEDS: Insulin Detemir 100 Units/ML 3 ML Pen SUBCUT SCH (08:55)
[2018-04-25] MEDS: Simethicone 80 MG Tab.Chew PO PRN ×2 (08:59→21:55)
[2018-04-25] MEDS: ROZEREM 8 MG PO SCH (20:34)
[2018-04-25] MEDS: Aspirin 81 MG Tab.EC PO SCH (20:34)
[2018-04-25] MEDS: Simvastatin 20 MG Tab PO SCH (20:35)
[2018-04-25] MEDS: Sertraline 100 MG Tab PO SCH (20:35)
[2018-04-25] MEDS: Aluminum Hydroxide/Magnesium Hydroxide Susp 30 ML Cup PO PRN (21:17)
[2018-04-26] MEDS: Omeprazole 20 MG Cap.CR PO SCH ×2 (06:30→17:18)
[2018-04-26] MEDS: Furosemide 20 MG Tab PO SCH ×2 (06:31→14:08)
[2018-04-26] MEDS: Acetaminophen 500 MG Tab PO SCH ×3 (06:32→22:13)
[2018-04-26] MEDS: oxyCODONE ER 10 MG TAB.ER PO SCH ×2 (08:11→20:35)
[2018-04-26] MEDS: Insulin Detemir 100 Units/ML 3 ML Pen SUBCUT SCH (08:12)
[2018-04-26] MEDS: Multivitamins with Minerals/Iron/Folic Acid/Lycopene Tab PO SCH (08:12)
[2018-04-26] MEDS: Docusate Sodium 100 MG Cap PO SCH (08:12)
[2018-04-26] MEDS: Losartan 100 MG Tab PO SCH (08:12)
[2018-04-26] MEDS: Iron Polysaccharides Complex 150 MG Cap PO SCH (08:12)
[2018-04-26] MEDS: Zinc (Zinc Gluconate) 50 MG Tab PO SCH (08:12)
[2018-04-26] MEDS: Metoprolol Tartrate 100 MG Tab PO SCH ×2 (08:13→20:28)
[2018-04-26] MEDS: amLODIPine 5 MG Tab PO SCH (08:13)
[2018-04-26] MEDS: Nystatin Topical Powder 15 GM Bottle TOP SCH (08:13)
[2018-04-26] MEDS: buPROPion 150 MG Tab.ER PO SCH (08:14)
[2018-04-26] MEDS: Naloxegol Oxalate 25 MG Tab PO SCH (08:14)
[2018-04-26] MEDS: Chlorthalidone 25 MG Tab PO SCH (08:14)
[2018-04-26] MEDS: Allopurinol 100 MG Tab PO SCH (08:14)
[2018-04-26] MEDS: Aspirin 81 MG Tab.EC PO SCH (20:26)
[2018-04-26] MEDS: ROZEREM 8 MG PO SCH (20:27)
[2018-04-26] MEDS: Simvastatin 20 MG Tab PO SCH (20:27)
[2018-04-26] MEDS: Sertraline 100 MG Tab PO SCH (20:27)
[2018-04-27] MEDS: Omeprazole 20 MG Cap.CR PO SCH ×2 (06:05→16:44)
[2018-04-27] MEDS: Acetaminophen 500 MG Tab PO SCH ×3 (06:06→22:35)
[2018-04-27] MEDS: Furosemide 20 MG Tab PO SCH (06:06)
[2018-04-27] MEDS: Zinc (Zinc Gluconate) 50 MG Tab PO SCH (08:30)
[2018-04-27] MEDS: oxyCODONE ER 10 MG TAB.ER PO SCH ×2 (08:31→20:15)
[2018-04-27] MEDS: Nystatin Topical Powder 15 GM Bottle TOP SCH (08:32)
[2018-04-27] MEDS: Naloxegol Oxalate 25 MG Tab PO SCH (08:33)
[2018-04-27] MEDS: Docusate Sodium 100 MG Cap PO SCH (08:36)
[2018-04-27] MEDS: Allopurinol 100 MG Tab PO SCH (08:36)
[2018-04-27] MEDS: Multivitamins with Minerals/Iron/Folic Acid/Lycopene Tab PO SCH (08:36)
[2018-04-27] MEDS: Losartan 100 MG Tab PO SCH (08:37)
[2018-04-27] MEDS: Metoprolol Tartrate 100 MG Tab PO SCH ×2 (08:37→20:16)
[2018-04-27] MEDS: Chlorthalidone 25 MG Tab PO SCH (08:38)
[2018-04-27] MEDS: Insulin Detemir 100 Units/ML 3 ML Pen SUBCUT SCH (08:38)
[2018-04-27] MEDS: amLODIPine 5 MG Tab PO SCH (08:39)
[2018-04-27] MEDS: buPROPion 150 MG Tab.ER PO SCH (08:47)
--- NOTE | 2018-04-27 09:30 | PCM.PN ---
- General Info Date of Service: 04/27/18 Functional Status: Reports: Pain Controlled, Tolerating Diet, Ambulating ( Ambulating but fall risk so assist required), Urinating, New Symptoms (Lump left bicep) - Review of Systems General: Reports: No Symptoms HEENT: Reports: No Symptoms Pulmonary: Reports: No Symptoms Cardiovascular: Reports: No Symptoms Gastrointestinal: Denies: Abdominal Pain, Diarrhea, Nausea, Vomiting Genitourinary: Reports: No Symptoms Musculoskeletal: Reports: Shoulder Pain (Left shoulder pain on active range of motion) Skin: Reports: No Symptoms Neurological: Reports: Pre-Existing Deficit. Denies: Numbness, Tingling, Weakness Psychiatric: Reports: No Symptoms - Patient Data Vitals - Most Recent: Last Vital Signs Temp 97.8 F 04/27/18 06:53 Pulse 60 04/27/18 06:53 Resp 16 04/27/18 06:53 BP 148/65 H 04/27/18 06:53 Pulse Ox 95 04/27/18 06:53 Weight - Most Recent: 194 lb 6 oz I&O - Last 24 Hours: Intake & Output 04/26/18 04/27/18 04/27/18 22:59 06:59 14:59 Intake Total 450 50 Balance 450 50 Lab Results Last 24 Hours: Laboratory Results - last 24 hr 04/27/18 Range/Units 06:08 POC Glucose 126 H (74-106) mg/dl Med Orders - Current: Current Medications Acetaminophen (Tylenol Extra Strength) 1,000 mg PO Q8H [facility] Last Admin: 04/27/18 06:06 Dose: 1,000 mg Al Hydroxide/Mg Hydroxide (Mag-Al Susp) 30 ml PO Q6H PRN PRN Reason: Heartburn Last Admin: 04/25/18 21:17 Dose: 30 ml Aspirin (Halfprin) 81 mg PO BEDTIME [facility] Last Admin: 04/26/18 20:26 Dose: 81 mg Bisacodyl (Dulcolax) 10 mg RECTAL DAILY PRN PRN Reason: Constipation Last Admin: 01/08/18 11:45 Dose: 10 mg Docusate Sodium (Colace) 100 mg PO DAILY [facility] Last Admin: 04/27/18 08:36 Dose: 100 mg Multivitamins/Minerals (Centrum) 1 tab PO DAILY [facility] Last Admin: 04/27/18 08:36 Dose: 1 tab Allopurinol 100 Mg (Tab) 1 each PO DAILY [facility] Last Admin: 04/27/18 08:36 Dose: 1 each Metoprolol Tartrate (100 Mg Tab) 0.5 each PO BID [facility] Last Admin: 04/27/18 08:37 Dose: 0.5 each Simvastatin 20 Mg (Tab) 1 each PO BEDTIME [facility] Last Admin: 04/26/18 20:27 Dose: 1 each Prochlorperazine 10 (Mg Tab) 1 each PO QID PRN PRN Reason: Nausea Last Admin: 04/10/18 22:53 Dose: 1 each Furosemide 20 Mg Tab 1 each PO SuTuThSa@1500 [facility] Last Admin: 04/26/18 14:08 Dose: 1 each Furosemide 20 Mg Tab 1 each PO DAILY@0700 [facility] Last Admin: 04/27/18 06:06 Dose: 1 each Sertraline 100 Mg (Tab) 1.5 each PO BEDTIME [facility] Last Admin: 04/26/18 20:27 Dose: 1.5 each Omeprazole 20 Mg Cap (.Cr) 1 each PO BID@0600,1700 [facility] Last Admin: 04/27/18 06:05 Dose: 1 each Ondansetron 4 Mg Tab 2 each PO TID PRN PRN Reason: nausea or vomitting Last Admin: 04/21/18 08:54 Dose: 2 each Naloxegol Oxalate 25 (Mg Tab) 1 each PO DAILY [facility] Last Admin: 04/27/18 08:33 Dose: 1 each Bupropion 150 Mg Tab (.Er) 1 each PO DAILY [facility] Last Admin: 04/26/18 08:14 Dose: 1 each Losartan 100 Mg Tab 1 each PO DAILY [facility] Last Admin: 04/27/18 08:37 Dose: 1 each Oxycodone Er 10 Mg (Tab.Er) 1 each PO Q12H [facility] Last Admin: 04/27/18 08:31 Dose: 1 each Oxycodone 5 Mg Tab 5 each PO Q6H PRN PRN Reason: Pain Last Admin: 03/15/18 13:07 Dose: 5 each Diclofenac Sodium 1% (Gel 100 Gm Tube) 1 each TOP QID PRN PRN Reason: Pain Last Admin: 03/03/18 08:55 Dose: 1 each Rozerem 8mg Tablet 1 each PO BEDTIME [facility] Last Admin: 04/26/18 20:27 Dose: 1 each Alprazolam 0.25 Mg (Tab) 1 each PO Q8H PRN PRN Reason: Anxiety Amlodipine 5 Mg Tab 1 each PO DAILY [facility] Last Admin: 04/27/18 08:39 Dose: 1 each Chlorthalidone 25 Mg (Tab) 0.5 each PO DAILY [facility] Last Admin: 04/27/18 08:38 Dose: 0.5 each Insulin Detemir 100 (Units/Ml 3 Ml Pen) 38 each SUBCUT DAILY [facility] Last Admin: 04/27/18 08:38 Dose: 38 each Nystatin Topical (Powder 15 Gm Bottle) 0 each TOP DAILY [facility] Last Admin: 04/27/18 08:32 Dose: Not Given Nystatin Topical (Powder 15 Gm Bottle) 0 each TOP TID PRN PRN Reason: Rash Last Admin: 04/24/18 09:30 Dose: 1 each Polyethylene Glycol (Miralax) 17 gm PO DAILY PRN PRN Reason: Constipation Last Admin: 03/26/18 14:58 Dose: 17 gm Polysaccharide Iron Complex (Ferrex 150) 150 mg PO Q48H [facility] Last Admin: 04/26/18 08:12 Dose: 150 mg Senna/Docusate Sodium (Senna Plus) 1 tab PO BEDTIME [facility] Last Admin: 04/26/18 20:26 Dose: 1 tab Simethicone (Simethicone) 80 mg PO Q6H PRN PRN Reason: Heartburn Last Admin: 04/25/18 21:55 Dose: 80 mg Zinc Gluconate (Zinc) 50 mg PO DAILY [facility] Last Admin: 04/27/18 08:30 Dose: 50 mg Discontinued Medications Acetaminophen (Tylenol Extra Strength) 1,000 mg PO Q8H [facility] Last Admin: 10/23/17 02:00 Dose: 1,000 mg Acetaminophen (Tylenol Extra Strength) 1,000 mg PO Q8H [facility] Last Admin: 11/22/17 15:12 Dose: 1,000 mg Acetaminophen (Tylenol) Confirm Administered Dose 975 mg .ROUTE .STK-MED ONE Stop: 11/08/17 07:36 Last Admin: 11/08/17 08:28 Dose: 975 mg Hydrocodone Bitart/Acetaminophen (Eitzen 325-5 Mg) 1 - 2 tab PO Q4H PRN PRN Reason: Moderate Pain Last Admin: 10/24/17 19:26 Dose: 1 tab Al Hydroxide/Mg Hydroxide (Mag-Al Susp) Confirm Administered Dose 30 ml .ROUTE .STK-MED ONE Stop: 01/09/18 21:49 Last Admin: 01/09/18 22:00 Dose: 30 ml Al Hydroxide/Mg Hydroxide (Mag-Al Susp) 30 ml PO Q6H PRN PRN Reason: Heartburn Last Admin: 01/09/18 22:00 Dose: 30 ml Allopurinol (Zyloprim) 100 mg PO DAILY [facility] Last Admin: 02/15/18 08:51 Dose: 100 mg Alprazolam (Xanax) 0.25 mg PO Q8H PRN PRN Reason: Anxiety Last Admin: 02/19/18 02:06 Dose: 0.25 mg Amlodipine Besylate (Norvasc) 5 mg PO DAILY [facility] Last Admin: 02/16/18 08:24 Dose: 5 mg Bacitracin (Bacitracin Oint) 1 gm TOP DAILY PRN PRN Reason: Rash Bisacodyl (Dulcolax) 10 mg RECTAL ONETIME ONE Stop: 12/21/17 04:02 Last Admin: 12/21/17 04:17 Dose: Not Given Bisacodyl (Dulcolax) Confirm Administered Dose 10 mg .ROUTE .STK-MED ONE Stop: 01/08/18 11:37 Last Admin: 01/08/18 16:15 Dose: Not Given Bupropion HCl (Wellbutrin Xl) 150 mg PO DAILY [facility] Last Admin: 02/16/18 08:22 Dose: 150 mg Calcium Carbonate/Glycine (Tums) 500 mg PO TID PRN PRN Reason: Indigestion Ciprofloxacin (Ciprofloxacin Hcl) 500 mg PO BID [facility] Stop: 12/24/17 21:01 Last Admin: 12/24/17 21:04 Dose: 500 mg Al Hydroxide/Mg Hydroxide 40 ml/ Diphenhydramine HCl 12.5 mg/ Lidocaine HCl 40 ml 0 ml PO TID PRN PRN Reason: mouth sores/burning Last Admin: 10/28/17 08:11 Dose: 10 ml Cranberry (Azo Cranberry) 1 each PO BEDTIME [facility] Last Admin: 11/07/17 21:46 Dose: Not Given Diclofenac Sodium (Voltaren 1% Gel) 1 gm TOP QID [facility] Last Admin: 01/26/18 08:10 Dose: Not Given Diclofenac Sodium (Voltaren 1% Gel) 1 gm TOP QID PRN PRN Reason: Pain Last Admin: 02/08/18 20:12 Dose: 1 applic Furosemide (Lasix) 20 mg PO DAILY [facility] Last Admin: 12/13/17 09:25 Dose: 20 mg Furosemide (Lasix) 20 mg PO SUTUTHSA@1700 [facility] Last Admin: 12/12/17 16:01 Dose: 20 mg Furosemide (Lasix) 20 mg PO SuTuThSa@1500 [facility] Last Admin: 02/13/18 14:52 Dose: 20 mg Furosemide (Lasix) 20 mg PO DAILY@0700 [facility] Last Admin: 02/15/18 06:44 Dose: 20 mg Furosemide (Lasix) Confirm Administered Dose 20 mg .ROUTE .[facility]-MED ONE Stop: 04/03/18 06:35 Last Admin: 04/03/18 09:08 Dose: Not Given Heparin Sodium (Porcine) (Heparin Lock Flush 100 Units/Ml) 500 units FLUSH ASDIRECTED PRN PRN Reason: Other Cefepime HCl 1 gm/ Sodium (Chloride) 50 mls @ 100 mls/hr IV Q8H [facility] Last Admin: 11/01/17 18:52 Dose: Not Given Cefepime HCl 1 gm/ Sodium (Chloride) 50 mls @ 100 mls/hr IV Q24H [facility] Last Admin: 11/07/17 20:32 Dose: 100 mls/hr Sodium Chloride (Normal Saline) Confirm Administered Dose 50 mls @ as directed .ROUTE .[facility] ONE Stop: 11/02/17 22:10 Last Admin: 11/02/17 23:15 Dose: 100 mls/hr Sodium Chloride (Normal Saline) Confirm Administered Dose 50 mls @ as directed .ROUTE .[facility]-MED ONE Stop: 11/03/17 21:46 Last Admin: 11/03/17 21:56 Dose: Not Given Sodium Chloride (Normal Saline) 50 mls @ 50 mls/hr IV ASDIRECTED [facility] Albumin Human (Flexbumin 25%) 100 mls @ 50 mls/hr IV ONETIME ONE Stop: 11/22/17 13:59 Last Admin: 11/22/17 13:07 Dose: 50 mls/hr Sodium Chloride (Normal Saline) 250 mls @ 125 mls/hr IV ASDIRECTED [facility] Stop: 11/22/17 21:00 Last Admin: 11/22/17 15:40 Dose: 125 mls/hr Ciprofloxacin/Dextrose (Cipro In D5w 400 Mg/200 Ml) 200 mls @ 200 mls/hr IV Q12H [facility] Last Admin: 11/26/17 06:13 Dose: 200 mls/hr Sodium Chloride (Normal Saline) Confirm Administered Dose 100 mls @ as directed .ROUTE .STK-MED ONE Stop: 11/22/17 20:04 Last Admin: 11/22/17 20:05 Dose: 100 mls/hr Sodium Chloride (Normal Saline) 100 mls @ 200 mls/hr IV ASDIRECTED [facility] Sodium Chloride (Normal Saline) 100 mls @ 20 mls/hr IV DAILY@1900 [facility] Last Admin: 11/25/17 18:08 Dose: 20 mls/hr Insulin Aspart (Novolog) 0 unit SUBCUT WITHMEALSANDBED [facility]; Protocol Stop: 10/31/17 00:00 Last Admin: 10/30/17 21:02 Dose: 5 units Insulin Aspart (Novolog) 2 unit SUBCUT ONETIME ONE Stop: 10/31/17 20:59 Last Admin: 10/31/17 21:07 Dose: 2 units Insulin Aspart (Novolog) 10 unit SUBCUT ONETIME ONE Stop: 11/12/17 17:44 Last Admin: 11/12/17 18:06 Dose: 10 units Insulin Aspart (Novolog) 0 unit SUBCUT TIDMEALS [facility]; Protocol Last Admin: 12/21/17 17:16 Dose: Not Given Insulin Detemir (Levemir) 44 unit SUBCUT DAILY [facility] Last Admin: 10/30/17 10:10 Dose: Not Given Insulin Detemir (Levemir) 40 unit SUBCUT DAILY [facility] Last Admin: 11/14/17 08:22 Dose: 40 units Insulin Detemir (Levemir) 44 unit SUBCUT DAILY [facility] Last Admin: 11/29/17 11:32 Dose: Not Given Insulin Detemir (Levemir) 34 unit SUBCUT DAILY [facility] Last Admin: 12/02/17 10:11 Dose: Not Given Insulin Detemir (Levemir) 30 unit SUBCUT DAILY [facility] Last Admin: 12/20/17 08:02 Dose: 30 units Insulin Detemir (Levemir) 40 unit SUBCUT DAILY [facility] Last Admin: 02/09/18 08:17 Dose: 40 units Insulin Detemir (Levemir) 10 unit SUBCUT ONETIME ONE Stop: 12/20/17 13:01 Last Admin: 12/20/17 14:38 Dose: 10 units Insulin Detemir (Levemir) 42 unit SUBCUT DAILY [facility] Last Admin: 02/16/18 08:24 Dose: 42 unit Lidocaine/Epinephrine (Xylocaine 1% With Epinephrine 1:100,000) 3 ml INJECT ONETIME ONE Stop: 11/05/17 09:01 Last Admin: 11/05/17 09:00 Dose: 3 ml Loperamide HCl (Imodium) 2 mg PO ASDIRECTED PRN PRN Reason: Diarrhea Last Admin: 11/30/17 05:53 Dose: 2 mg Lorazepam (Ativan) 0.25 mg PO Q8H PRN PRN Reason: Anxiety Last Admin: 12/13/17 18:03 Dose: 0.25 mg Lorazepam (Ativan) 0.25 mg PO Q8H PRN PRN Reason: Anxiety Losartan Potassium (Cozaar) 25 mg PO DAILY [facility] Last Admin: 11/27/17 09:05 Dose: 25 mg Losartan Potassium (Cozaar) 50 mg PO DAILY [facility] Last Admin: 12/25/17 08:57 Dose: 50 mg Losartan Potassium (Cozaar) 75 mg PO DAILY [facility] Last Admin: 01/17/18 08:26 Dose: 75 mg Losartan Potassium (Cozaar) 100 mg PO DAILY [facility] Last Admin: 02/16/18 08:24 Dose: 100 mg Magnesium Hydroxide (Milk Of Magnesia) 30 ml PO DAILY PRN PRN Reason: Constipation Last Admin: 10/26/17 09:10 Dose: 30 ml Melatonin (Melatonin) 6 mg PO BEDTIME [facility] Metoprolol Tartrate (Lopressor) 50 mg PO BID [facility] Last Admin: 02/15/18 08:51 Dose: 50 mg Multivitamins/Minerals (Centrum) 1 tab PO DAILY [facility] Last Admin: 12/20/17 08:03 Dose: 1 tab Multivitamins/Minerals (Centrum) 1 tab PO DAILY@1200 [facility] Last Admin: 12/27/17 11:36 Dose: 1 tab Mupirocin (Bactroban Crm) 1 gm TOP TID [facility] Last Admin: 10/29/17 11:29 Dose: Not Given Mupirocin (Bactroban Oint) 0 gm TOP DAILY [facility] Last Admin: 12/06/17 10:12 Dose: 1 applic Naloxegol (Movantik) 25 mg PO DAILY [facility] Last Admin: 02/16/18 08:22 Dose: 25 mg Insulin Degludec ( (Tresiba) 44units) 44 units SUBCUT DAILY [facility] Nystatin (Nystop) 0 gm TOP BID [facility] Last Admin: 10/25/17 08:58 Dose: 1 applic Nystatin (Nystop) 0 gm TOP TID [facility] Last Admin: 10/26/17 11:15 Dose: Not Given Nystatin (Nystatin Ointment) 0 gm TOP TID [facility] Last Admin: 11/04/17 15:49 Dose: Not Given Nystatin (Nystatin Ointment) 1 gm TOP DAILY PRN PRN Reason: Rash Last Admin: 12/26/17 08:19 Dose: 1 applic Nystatin (Nystatin Ointment) 1 gm TOP BID [facility] Last Admin: 01/01/18 09:12 Dose: Not Given Nystatin (Nystatin Ointment) 1 gm TOP BID PRN PRN Reason: Rash Nystatin (Nystatin Ointment) 0 gm TOP BID PRN PRN Reason: Rash Nystatin (Nystop) 0 gm TOP TID [facility] Last Admin: 04/21/18 08:55 Dose: 1 applic Olanzapine (Zyprexa) 10 mg PO ASDIRECTED [facility] Olanzapine (Zyprexa) 10 mg PO BEDTIME [facility] Stop: 11/14/17 21:01 Last Admin: 11/14/17 21:28 Dose: 10 mg Olanzapine (Zyprexa) 10 mg PO BEDTIME [facility] Stop: 11/22/17 21:01 Last Admin: 11/22/17 21:41 Dose: 10 mg Omeprazole (Omeprazole) 20 mg PO SUTUTHSA@2100 [facility] Last Admin: 10/23/17 21:24 Dose: 20 mg Omeprazole (Omeprazole) 20 mg PO DAILY@2100 [facility] Last Admin: 12/11/17 20:18 Dose: 20 mg Omeprazole (Omeprazole) 20 mg PO BID [facility] Last Admin: 12/13/17 09:27 Dose: 20 mg Omeprazole (Omeprazole) 20 mg PO BIDAC [facility] Last Admin: 12/17/17 16:45 Dose: 20 mg Omeprazole (Omeprazole) 20 mg PO DAILY@0600,1700 [facility] Last Admin: 01/20/18 06:27 Dose: 20 mg Omeprazole (Omeprazole) 20 mg PO BID@0600,1700 [facility] Last Admin: 02/15/18 06:44 Dose: 20 mg Omeprazole (Omeprazole) Confirm Administered Dose 20 mg .ROUTE .STK-MED ONE Stop: 04/03/18 06:36 Last Admin: 04/03/18 09:08 Dose: Not Given Ondansetron HCl (Zofran Odt) 8 mg PO TID PRN PRN Reason: nausea or vomitting Last Admin: 01/26/18 17:53 Dose: 8 mg Oxycodone HCl (Oxycodone) 5 mg PO Q6H [facility] Last Admin: 10/23/17 06:11 Dose: 5 mg Oxycodone HCl (Oxycodone) 5 mg PO Q6H [facility] Last Admin: 10/24/17 06:21 Dose: Not Given Oxycodone HCl (Oxycodone) 5 mg PO Q6H PRN PRN Reason: Pain Last Admin: 02/14/18 13:38 Dose: 5 mg Oxycodone HCl (Oxycodone) 5 mg PO BEDTIME [facility] Last Admin: 12/07/17 20:02 Dose: 5 mg Oxycodone HCl (Oxycodone) 5 mg PO ONETIME ONE Stop: 11/23/17 18:12 Last Admin: 11/23/17 18:48 Dose: 5 mg Oxycodone HCl (Oxycodone) 7.5 mg PO BEDTIME [facility] Stop: 12/13/17 23:00 Last Admin: 12/13/17 20:05 Dose: 7.5 mg Oxycodone HCl (Oxycodone) 5 mg PO ONETIME ONE Stop: 12/13/17 17:59 Last Admin: 12/13/17 18:21 Dose: 5 mg Oxycodone HCl (Oxycontin) 10 mg PO Q12H [facility] Last Admin: 02/16/18 08:22 Dose: 10 mg Oxycodone HCl (Oxycontin) Confirm Administered Dose 10 mg .ROUTE .STK-MED ONE Stop: 12/31/17 11:25 Last Admin: 12/31/17 11:26 Dose: 10 mg Amlodipine 5 Mg Tab 5 each PO DAILY [facility] Last Admin: 03/07/18 08:22 Dose: 5 each Insulin Detemir 100 (Units/Ml 3 Ml Pen) 42 each SUBCUT DAILY [facility] Last Admin: 04/11/18 09:00 Dose: 42 each Nystatin Cream 30gm (Tube) 1 each TOP BID PRN PRN Reason: Rash Last Admin: 04/07/18 11:25 Dose: 1 each Polysaccharide Iron Complex (Ferrex 150) 150 mg PO DAILY [facility] Last Admin: 12/20/17 08:05 Dose: 150 mg Polysaccharide Iron Complex (Ferrex 150) 150 mg PO DAILY@1200 [facility] Last Admin: 12/27/17 11:36 Dose: 150 mg Polysaccharide Iron Complex (Ferrex 150) 150 mg PO DAILY [facility] Last Admin: 02/09/18 08:17 Dose: 150 mg Polysaccharide Iron Complex (Ferrex 150) 150 mg PO Q48H [facility] Last Admin: 02/09/18 11:46 Dose: Not Given Prochlorperazine Maleate (Compazine) 10 mg PO QID PRN PRN Reason: Nausea Prochlorperazine Maleate (Compazine) 10 mg PO QID PRN PRN Reason: Nausea Last Admin: 01/16/18 20:25 Dose: 10 mg Promethazine HCl (Phenergan) 25 mg IM Q6H PRN PRN Reason: Nausea Last Admin: 04/22/18 21:37 Dose: 25 mg Ramelteon (Rozerem) 8 mg PO BEDTIME [facility] Last Admin: 02/16/18 22:33 Dose: 8 mg Senna/Docusate Sodium (Senna Plus) 1 tab PO BID PRN PRN Reason: Constipation Last Admin: 10/28/17 08:08 Dose: 1 tab Senna/Docusate Sodium (Senna Plus) 1 tab PO BID [facility] Last Admin: 11/04/17 15:49 Dose: Not Given Senna/Docusate Sodium (Senna Plus) 1 - 2 tab PO DAILY PRN PRN Reason: Constipation Sertraline HCl (Zoloft) 100 mg PO BEDTIME [facility] Last Admin: 01/07/18 20:58 Dose: 100 mg Sertraline HCl (Zoloft) 150 mg PO BEDTIME [facility] Last Admin: 02/14/18 20:02 Dose: 150 mg Simvastatin (Zocor) 40 mg PO BEDTIME [facility] Last Admin: 02/14/18 20:03 Dose: 40 mg Sodium Chloride ([place] Nasal [place]) 1 ml ALDO QID PRN PRN Reason: Dryness Last Admin: 11/12/17 21:03 Dose: 1 spray Sodium Chloride (Normal Saline) 20 ml FLUSH ASDIRECTED PRN PRN Reason: Other Sodium Chloride (Saline Flush) 20 ml FLUSH Q8H [facility] Last Admin: 11/02/17 10:46 Dose: Not Given Sodium Chloride (Saline Flush) 20 ml FLUSH Q8H [facility] Last Admin: 11/11/17 12:20 Dose: Not Given Zinc Gluconate (Zinc) 50 mg PO DAILY [facility] Last Admin: 12/20/17 08:05 Dose: 50 mg Zinc Gluconate (Zinc) 50 mg PO DAILY@1200 [facility] Last Admin: 12/27/17 11:35 Dose: 50 mg - Exam Quality Assessment: Skin Breakdown (Coccyx decubitus). No: Supplemental Oxygen General: Alert, Oriented, No Acute Distress Neck: No JVD Lungs: Clear to Auscultation, Normal Respiratory Effort Cardiovascular: Regular Rate, Regular Rhythm GI/Abdominal Exam: Soft Skin: Other (Decubitus coccyx area--nurses reports healing but slowly) Neurological: No New Focal Deficit Psy/Mental Status: Alert, Normal Affect, Normal Mood - Problem List Review Problem List Initiated/Reviewed/Updated: Yes - My Orders Last 24 Hours: My Active Orders 04/28/18 05:11 BASIC METABOLIC PANEL,BMP [CHEM] AM 04/28/18 05:15 CBC WITH AUTO DIFF [HEME] AM - Plan Plan:: HPI: This is a 76 year old female who had previously been in swing bed status due to a left humeral fracture and deconditioning. The patient has been recently diagnosed with peritoneal carcinomatosis. The patient was sent up to [facility] on 10/20/17 for abdominal paracentesis and pleurx catheter placement. She had labs done that day which showed a hemoglobin of 6.5. She was then admitted to their hospitalist services. She was given 2 units of PRBCs. She was due for her second cycle of carboplatin and taxol while there and this was completed on 10/21/17. She was also given Neulasta prior to discharge. The patient was admitted back to swing bed status for rehabilitation of her fracture and deconditioning. PRIMARY HOSPITAL PROBLEMS Left humeral head fracture. Patient with periodic pain however mainly on movement/PT manipulation She does have significant limitations in her left arm with almost no ability to abduct 30 however ongoing physical therapy is assisting with ROM and strengthening. Stage IV pressure ulcer to coccyx, no signs and symptoms of infection, healing slowly. No longer receiving NPWT due to observed undermining/sinus tracking in wound, and the need for repeated sharps debridement, along with little to no drainage. Decubitus ulcer good granulation base coccyx, 2 cm superior tracking , healing however very slow, signs of infection Deconditioning. Continue physical therapy Immunocompromised host. No fever no infectious process. Rule out right bicipital tendon rupture. Will get US SECONDARY ASSESSMENT/PLAN: Malignant ascites. PleurX catheter clogged. Unsuccessful attempt upon removing in the past. Anemia due to antineoplastic chemotherapy. recent hemoglobin Hgb stable at 12.3. Reassess Anxiety, very stable, Much improved affect Primary peritoneal carcinomatosis. Followed by Dr. Collier/oncology with ongoing Pleurx abdominal drain however is clogged. History of endometrial cancer, s/p hysterceomty 2009. CAD, no ischemic picture, stable. HTN. Continue lopressor and losartan and Norvasc 5 mg Aortic stenosis. History of atrial flutter. T2dm 2 DM. Adequate fasting Accuchecks daily. Tresiba switched to levemir daily due to not being available in house. 42 units CKD stage 3. Creatinine acceptable Hyperlipidemia. Continue simvastatin. Obesity. Gout. Continue allopurinol 100 mg daily. Diabetic retinopathy. Depression. Continue zoloft. GERD. Continue omeprazole bid, limit fluids during meals, patient positioning after meals OAB. Osteoarthritis. History of hypercalcemia. Recent Hypoalbuminemia. DVT prophylaxis. Score of 6, Continue with phan stockings. Overall plan: Continue an SNF with PT. ultrasound to right bicep to rule out tendon rupture. Continue with physical therapy with left humeral exercises. reassess CBC, CMP, Anticipate discharge to long-term care after [place].
[2018-04-27] MEDS: Simethicone 80 MG Tab.Chew PO PRN (20:13)
[2018-04-27] MEDS: Simvastatin 20 MG Tab PO SCH (20:14)
[2018-04-27] MEDS: ROZEREM 8 MG PO SCH (20:14)
[2018-04-27] MEDS: Sertraline 100 MG Tab PO SCH (20:14)
[2018-04-27] MEDS: Aspirin 81 MG Tab.EC PO SCH (20:14)
[2018-04-28] MEDS: Omeprazole 20 MG Cap.CR PO SCH ×2 (06:50→18:02)
[2018-04-28] MEDS: Furosemide 20 MG Tab PO SCH ×2 (06:51→16:33)
[2018-04-28] MEDS: Acetaminophen 500 MG Tab PO SCH ×3 (06:51→22:28)
[2018-04-28 07:50] LABS: ANION GAP 16.4 mmol/L (5-15)
[2018-04-28] MEDS: oxyCODONE ER 10 MG TAB.ER PO SCH ×2 (08:10→20:17)
[2018-04-28] MEDS: Zinc (Zinc Gluconate) 50 MG Tab PO SCH (08:10)
[2018-04-28] MEDS: Multivitamins with Minerals/Iron/Folic Acid/Lycopene Tab PO SCH (08:10)
[2018-04-28] MEDS: Docusate Sodium 100 MG Cap PO SCH (08:10)
[2018-04-28] MEDS: Nystatin Topical Powder 15 GM Bottle TOP SCH (08:12)
[2018-04-28] MEDS: Metoprolol Tartrate 100 MG Tab PO SCH ×2 (08:13→20:17)
[2018-04-28] MEDS: Naloxegol Oxalate 25 MG Tab PO SCH (08:13)
[2018-04-28] MEDS: Allopurinol 100 MG Tab PO SCH (08:14)
[2018-04-28] MEDS: amLODIPine 5 MG Tab PO SCH (08:14)
[2018-04-28] MEDS: Chlorthalidone 25 MG Tab PO SCH (08:15)
[2018-04-28] MEDS: Insulin Detemir 100 Units/ML 3 ML Pen SUBCUT SCH (08:15)
[2018-04-28] MEDS: Losartan 100 MG Tab PO SCH (08:15)
[2018-04-28] MEDS: buPROPion 150 MG Tab.ER PO SCH (08:15)
[2018-04-28] MEDS: Iron Polysaccharides Complex 150 MG Cap PO SCH (08:23)
[2018-04-28] MEDS: Aspirin 81 MG Tab.EC PO SCH (20:17)
[2018-04-28] MEDS: Simvastatin 20 MG Tab PO SCH (20:18)
[2018-04-28] MEDS: Sertraline 100 MG Tab PO SCH (20:18)
[2018-04-28] MEDS: ROZEREM 8 MG PO SCH (20:18)
[2018-04-29] MEDS: Acetaminophen 500 MG Tab PO SCH ×3 (06:07→22:38)
[2018-04-29] MEDS: Furosemide 20 MG Tab PO SCH (06:07)
[2018-04-29] MEDS: Omeprazole 20 MG Cap.CR PO SCH ×2 (06:08→17:32)
[2018-04-29] MEDS: Multivitamins with Minerals/Iron/Folic Acid/Lycopene Tab PO SCH (08:56)
[2018-04-29] MEDS: Docusate Sodium 100 MG Cap PO SCH (08:56)
[2018-04-29] MEDS: oxyCODONE ER 10 MG TAB.ER PO SCH ×2 (08:56→20:13)
[2018-04-29] MEDS: Zinc (Zinc Gluconate) 50 MG Tab PO SCH (08:56)
[2018-04-29] MEDS: Chlorthalidone 25 MG Tab PO SCH (08:57)
[2018-04-29] MEDS: Allopurinol 100 MG Tab PO SCH (08:57)
[2018-04-29] MEDS: buPROPion 150 MG Tab.ER PO SCH (08:57)
[2018-04-29] MEDS: amLODIPine 5 MG Tab PO SCH (08:58)
[2018-04-29] MEDS: Naloxegol Oxalate 25 MG Tab PO SCH (08:58)
[2018-04-29] MEDS: Losartan 100 MG Tab PO SCH (08:58)
[2018-04-29] MEDS: Insulin Detemir 100 Units/ML 3 ML Pen SUBCUT SCH (08:59)
[2018-04-29] MEDS: Metoprolol Tartrate 100 MG Tab PO SCH ×2 (08:59→21:05)
[2018-04-29] MEDS: Nystatin Topical Powder 15 GM Bottle TOP SCH (09:00)
[2018-04-29] MEDS: Simethicone 80 MG Tab.Chew PO PRN (10:33)
[2018-04-29] MEDS: Aspirin 81 MG Tab.EC PO SCH (20:13)
[2018-04-29] MEDS: ROZEREM 8 MG PO SCH (20:14)
[2018-04-29] MEDS: Sertraline 100 MG Tab PO SCH (20:14)
[2018-04-29] MEDS: Simvastatin 20 MG Tab PO SCH (20:14)
[2018-04-30] MEDS: Acetaminophen 500 MG Tab PO SCH ×2 (06:04→15:46)
[2018-04-30] MEDS: Furosemide 20 MG Tab PO SCH ×2 (06:05→15:46)
[2018-04-30] MEDS: Omeprazole 20 MG Cap.CR PO SCH ×2 (06:05→17:43)
[2018-04-30] MEDS: oxyCODONE 5 MG Tab PO PRN ×2 (06:10→18:25)
[2018-04-30] MEDS: oxyCODONE ER 10 MG TAB.ER PO SCH ×2 (08:31→20:33)
[2018-04-30] MEDS: Zinc (Zinc Gluconate) 50 MG Tab PO SCH (08:31)
[2018-04-30] MEDS: Multivitamins with Minerals/Iron/Folic Acid/Lycopene Tab PO SCH (08:31)
[2018-04-30] MEDS: Docusate Sodium 100 MG Cap PO SCH (08:31)
[2018-04-30] MEDS: Chlorthalidone 25 MG Tab PO SCH (08:32)
[2018-04-30] MEDS: amLODIPine 5 MG Tab PO SCH (08:32)
[2018-04-30] MEDS: Allopurinol 100 MG Tab PO SCH (08:32)
[2018-04-30] MEDS: Naloxegol Oxalate 25 MG Tab PO SCH (08:33)
[2018-04-30] MEDS: buPROPion 150 MG Tab.ER PO SCH (08:33)
[2018-04-30] MEDS: Nystatin Topical Powder 15 GM Bottle TOP SCH (08:33)
[2018-04-30] MEDS: Insulin Detemir 100 Units/ML 3 ML Pen SUBCUT SCH (08:34)
[2018-04-30] MEDS: Metoprolol Tartrate 100 MG Tab PO SCH ×2 (08:34→20:36)
[2018-04-30] MEDS: Iron Polysaccharides Complex 150 MG Cap PO SCH (08:38)
[2018-04-30] MEDS: Aspirin 81 MG Tab.EC PO SCH (20:33)
[2018-04-30] MEDS: Simvastatin 20 MG Tab PO SCH (20:34)
[2018-04-30] MEDS: ROZEREM 8 MG PO SCH (20:34)
[2018-04-30] MEDS: Sertraline 100 MG Tab PO SCH (20:35)
[2018-05-01] MEDS: Acetaminophen 500 MG Tab PO SCH ×4 (00:06→22:30)
[2018-05-01] MEDS: Omeprazole 20 MG Cap.CR PO SCH ×2 (05:59→17:22)
[2018-05-01] MEDS: Furosemide 20 MG Tab PO SCH ×2 (06:00→14:12)
[2018-05-01] MEDS: Simethicone 80 MG Tab.Chew PO PRN ×2 (06:04→14:12)
[2018-05-01] MEDS: oxyCODONE ER 10 MG TAB.ER PO SCH ×2 (08:32→22:30)
[2018-05-01] MEDS: Docusate Sodium 100 MG Cap PO SCH (08:37)
[2018-05-01] MEDS: buPROPion 150 MG Tab.ER PO SCH (08:37)
[2018-05-01] MEDS: Multivitamins with Minerals/Iron/Folic Acid/Lycopene Tab PO SCH (08:37)
[2018-05-01] MEDS: Naloxegol Oxalate 25 MG Tab PO SCH (08:37)
[2018-05-01] MEDS: Zinc (Zinc Gluconate) 50 MG Tab PO SCH (08:37)
[2018-05-01] MEDS: Chlorthalidone 25 MG Tab PO SCH (08:37)
[2018-05-01] MEDS: Allopurinol 100 MG Tab PO SCH (08:38)
[2018-05-01] MEDS: Insulin Detemir 100 Units/ML 3 ML Pen SUBCUT SCH (08:38)
[2018-05-01] MEDS: Nystatin Topical Powder 15 GM Bottle TOP SCH (08:39)
[2018-05-01] MEDS: amLODIPine 5 MG Tab PO SCH (08:40)
[2018-05-01] MEDS: Metoprolol Tartrate 100 MG Tab PO SCH ×2 (08:40→22:33)
[2018-05-01] MEDS: Diclofenac Sodium 1% Gel 100 GM Tube TOP PRN (14:13)
[2018-05-01] MEDS: Aspirin 81 MG Tab.EC PO SCH (22:30)
[2018-05-01] MEDS: Sertraline 100 MG Tab PO SCH (22:31)
[2018-05-01] MEDS: Simvastatin 20 MG Tab PO SCH (22:32)
[2018-05-01] MEDS: ROZEREM 8 MG PO SCH (22:32)
[2018-05-02] MEDS: Acetaminophen 500 MG Tab PO SCH ×3 (06:07→22:45)
[2018-05-02] MEDS: Omeprazole 20 MG Cap.CR PO SCH ×2 (06:08→16:59)
[2018-05-02] MEDS: Furosemide 20 MG Tab PO SCH (06:08)
[2018-05-02] MEDS: Zinc (Zinc Gluconate) 50 MG Tab PO SCH (09:06)
[2018-05-02] MEDS: oxyCODONE ER 10 MG TAB.ER PO SCH ×2 (09:07→20:40)
[2018-05-02] MEDS: Nystatin Topical Powder 15 GM Bottle TOP SCH (09:07)
[2018-05-02] MEDS: Naloxegol Oxalate 25 MG Tab PO SCH (09:08)
[2018-05-02] MEDS: Insulin Detemir 100 Units/ML 3 ML Pen SUBCUT SCH (09:08)
[2018-05-02] MEDS: amLODIPine 5 MG Tab PO SCH (09:09)
[2018-05-02] MEDS: buPROPion 150 MG Tab.ER PO SCH (09:09)
[2018-05-02] MEDS: Chlorthalidone 25 MG Tab PO SCH (09:09)
[2018-05-02] MEDS: Iron Polysaccharides Complex 150 MG Cap PO SCH (09:10)
[2018-05-02] MEDS: Docusate Sodium 100 MG Cap PO SCH (09:10)
[2018-05-02] MEDS: Allopurinol 100 MG Tab PO SCH (09:10)
[2018-05-02] MEDS: Multivitamins with Minerals/Iron/Folic Acid/Lycopene Tab PO SCH (09:10)
[2018-05-02] MEDS: Metoprolol Tartrate 100 MG Tab PO SCH ×2 (09:13→20:43)
[2018-05-02] MEDS: Simvastatin 20 MG Tab PO SCH (20:40)
[2018-05-02] MEDS: ROZEREM 8 MG PO SCH (20:41)
[2018-05-02] MEDS: Sertraline 100 MG Tab PO SCH (20:41)
[2018-05-02] MEDS: Aspirin 81 MG Tab.EC PO SCH (20:43)
[2018-05-02] MEDS: Simethicone 80 MG Tab.Chew PO PRN (22:45)
[2018-05-03] MEDS: Omeprazole 20 MG Cap.CR PO SCH ×2 (06:11→17:09)
[2018-05-03] MEDS: Acetaminophen 500 MG Tab PO SCH ×3 (06:11→22:08)
[2018-05-03] MEDS: Simethicone 80 MG Tab.Chew PO PRN ×2 (06:11→20:01)
[2018-05-03] MEDS: Furosemide 20 MG Tab PO SCH ×2 (06:11→14:58)
[2018-05-03] MEDS: oxyCODONE ER 10 MG TAB.ER PO SCH ×2 (08:19→20:39)
[2018-05-03] MEDS: Docusate Sodium 100 MG Cap PO SCH (08:19)
[2018-05-03] MEDS: Zinc (Zinc Gluconate) 50 MG Tab PO SCH (08:19)
[2018-05-03] MEDS: Naloxegol Oxalate 25 MG Tab PO SCH (08:19)
[2018-05-03] MEDS: Multivitamins with Minerals/Iron/Folic Acid/Lycopene Tab PO SCH (08:19)
[2018-05-03] MEDS: buPROPion 150 MG Tab.ER PO SCH (08:20)
[2018-05-03] MEDS: amLODIPine 5 MG Tab PO SCH (08:20)
[2018-05-03] MEDS: Allopurinol 100 MG Tab PO SCH (08:21)
[2018-05-03] MEDS: Chlorthalidone 25 MG Tab PO SCH (08:21)
[2018-05-03] MEDS: Metoprolol Tartrate 100 MG Tab PO SCH ×2 (08:23→20:40)
[2018-05-03] MEDS: Insulin Detemir 100 Units/ML 3 ML Pen SUBCUT SCH (08:25)
[2018-05-03] MEDS: Nystatin Topical Powder 15 GM Bottle TOP SCH (14:59)
[2018-05-03] MEDS: Aluminum Hydroxide/Magnesium Hydroxide Susp 30 ML Cup PO PRN (19:59)
[2018-05-03] MEDS: Aspirin 81 MG Tab.EC PO SCH (20:39)
[2018-05-03] MEDS: ROZEREM 8 MG PO SCH (20:40)
[2018-05-03] MEDS: Simvastatin 20 MG Tab PO SCH (20:41)
[2018-05-03] MEDS: Sertraline 100 MG Tab PO SCH (20:41)
[2018-05-03] MEDS: Prochlorperazine 10 MG Tab PO PRN (20:42)
[2018-05-04] MEDS: Omeprazole 20 MG Cap.CR PO SCH ×2 (06:32→17:10)
[2018-05-04] MEDS: Acetaminophen 500 MG Tab PO SCH ×3 (06:33→23:58)
[2018-05-04] MEDS: Furosemide 20 MG Tab PO SCH (06:33)
[2018-05-04] MEDS: Zinc (Zinc Gluconate) 50 MG Tab PO SCH (08:05)
[2018-05-04] MEDS: Docusate Sodium 100 MG Cap PO SCH (08:06)
[2018-05-04] MEDS: Multivitamins with Minerals/Iron/Folic Acid/Lycopene Tab PO SCH (08:06)
[2018-05-04] MEDS: Iron Polysaccharides Complex 150 MG Cap PO SCH (08:06)
[2018-05-04] MEDS: oxyCODONE ER 10 MG TAB.ER PO SCH ×2 (08:06→21:31)
[2018-05-04] MEDS: Nystatin Topical Powder 15 GM Bottle TOP SCH (08:07)
[2018-05-04] MEDS: Insulin Detemir 100 Units/ML 3 ML Pen SUBCUT SCH (08:10)
[2018-05-04] MEDS: buPROPion 150 MG Tab.ER PO SCH (08:13)
[2018-05-04] MEDS: amLODIPine 5 MG Tab PO SCH (08:13)
[2018-05-04] MEDS: Chlorthalidone 25 MG Tab PO SCH (08:13)
[2018-05-04] MEDS: Allopurinol 100 MG Tab PO SCH (08:13)
[2018-05-04] MEDS: Naloxegol Oxalate 25 MG Tab PO SCH (08:13)
[2018-05-04] MEDS: Metoprolol Tartrate 100 MG Tab PO SCH ×2 (08:14→21:32)
[2018-05-04] MEDS: Aspirin 81 MG Tab.EC PO SCH (21:31)
[2018-05-04] MEDS: Simvastatin 20 MG Tab PO SCH (21:32)
[2018-05-04] MEDS: Sertraline 100 MG Tab PO SCH (21:33)
[2018-05-04] MEDS: ROZEREM 8 MG PO SCH (21:33)
[2018-05-05] MEDS: Acetaminophen 500 MG Tab PO SCH ×3 (06:26→23:33)
[2018-05-05] MEDS: Omeprazole 20 MG Cap.CR PO SCH ×2 (06:27→17:06)
[2018-05-05] MEDS: Furosemide 20 MG Tab PO SCH ×2 (06:27→15:49)
[2018-05-05 07:57] LABS: ANION GAP 11.5 mmol/L (5-15)
[2018-05-05] MEDS: Metoprolol Tartrate 100 MG Tab PO SCH ×2 (08:00→20:13)
[2018-05-05] MEDS: Docusate Sodium 100 MG Cap PO SCH (08:01)
[2018-05-05] MEDS: oxyCODONE ER 10 MG TAB.ER PO SCH ×2 (08:01→20:11)
[2018-05-05] MEDS: Multivitamins with Minerals/Iron/Folic Acid/Lycopene Tab PO SCH (08:01)
[2018-05-05] MEDS: Zinc (Zinc Gluconate) 50 MG Tab PO SCH (08:01)
[2018-05-05] MEDS: buPROPion 150 MG Tab.ER PO SCH (08:02)
[2018-05-05] MEDS: amLODIPine 5 MG Tab PO SCH (08:02)
[2018-05-05] MEDS: Chlorthalidone 25 MG Tab PO SCH (08:02)
[2018-05-05] MEDS: Allopurinol 100 MG Tab PO SCH (08:02)
[2018-05-05] MEDS: Naloxegol Oxalate 25 MG Tab PO SCH (08:02)
[2018-05-05] MEDS: Insulin Detemir 100 Units/ML 3 ML Pen SUBCUT SCH (08:03)
[2018-05-05] MEDS: Nystatin Topical Powder 15 GM Bottle TOP SCH (08:03)
[2018-05-05] MEDS: Aspirin 81 MG Tab.EC PO SCH (20:11)
[2018-05-05] MEDS: Sertraline 100 MG Tab PO SCH (20:12)
[2018-05-05] MEDS: ROZEREM 8 MG PO SCH (20:12)
[2018-05-05] MEDS: Simvastatin 20 MG Tab PO SCH (20:12)
[2018-05-06] MEDS: Acetaminophen 500 MG Tab PO SCH ×3 (06:33→23:46)
[2018-05-06] MEDS: Furosemide 20 MG Tab PO SCH (06:34)
[2018-05-06] MEDS: Omeprazole 20 MG Cap.CR PO SCH ×2 (06:34→16:46)
[2018-05-06] MEDS: Docusate Sodium 100 MG Cap PO SCH (08:09)
[2018-05-06] MEDS: Zinc (Zinc Gluconate) 50 MG Tab PO SCH (08:09)
[2018-05-06] MEDS: oxyCODONE ER 10 MG TAB.ER PO SCH ×2 (08:09→21:02)
[2018-05-06] MEDS: Multivitamins with Minerals/Iron/Folic Acid/Lycopene Tab PO SCH (08:09)
[2018-05-06] MEDS: Nystatin Topical Powder 15 GM Bottle TOP SCH (08:10)
[2018-05-06] MEDS: Metoprolol Tartrate 100 MG Tab PO SCH ×2 (08:10→21:01)
[2018-05-06] MEDS: Insulin Detemir 100 Units/ML 3 ML Pen SUBCUT SCH (08:11)
[2018-05-06] MEDS: amLODIPine 5 MG Tab PO SCH (08:11)
[2018-05-06] MEDS: Chlorthalidone 25 MG Tab PO SCH (08:11)
[2018-05-06] MEDS: Allopurinol 100 MG Tab PO SCH (08:11)
[2018-05-06] MEDS: buPROPion 150 MG Tab.ER PO SCH (08:12)
[2018-05-06] MEDS: Naloxegol Oxalate 25 MG Tab PO SCH (08:12)
[2018-05-06] MEDS: Iron Polysaccharides Complex 150 MG Cap PO SCH (08:17)
[2018-05-06] MEDS: Sertraline 100 MG Tab PO SCH (20:56)
[2018-05-06] MEDS: Simvastatin 20 MG Tab PO SCH (20:56)
[2018-05-06] MEDS: ROZEREM 8 MG PO SCH (20:56)
[2018-05-06] MEDS: Aspirin 81 MG Tab.EC PO SCH (21:06)
[2018-05-07] MEDS: Acetaminophen 500 MG Tab PO SCH ×3 (06:41→23:16)
[2018-05-07] MEDS: Omeprazole 20 MG Cap.CR PO SCH ×2 (06:41→16:12)
[2018-05-07] MEDS: Furosemide 20 MG Tab PO SCH ×2 (06:41→14:07)
[2018-05-07] MEDS: Multivitamins with Minerals/Iron/Folic Acid/Lycopene Tab PO SCH (08:08)
[2018-05-07] MEDS: oxyCODONE ER 10 MG TAB.ER PO SCH ×2 (08:08→21:11)
[2018-05-07] MEDS: Zinc (Zinc Gluconate) 50 MG Tab PO SCH (08:08)
[2018-05-07] MEDS: Docusate Sodium 100 MG Cap PO SCH (08:08)
[2018-05-07] MEDS: Nystatin Topical Powder 15 GM Bottle TOP SCH (08:09)
[2018-05-07] MEDS: buPROPion 150 MG Tab.ER PO SCH (08:09)
[2018-05-07] MEDS: Allopurinol 100 MG Tab PO SCH (08:09)
[2018-05-07] MEDS: Chlorthalidone 25 MG Tab PO SCH (08:09)
[2018-05-07] MEDS: amLODIPine 5 MG Tab PO SCH (08:10)
[2018-05-07] MEDS: Metoprolol Tartrate 100 MG Tab PO SCH ×2 (08:10→21:09)
[2018-05-07] MEDS: Insulin Detemir 100 Units/ML 3 ML Pen SUBCUT SCH (08:10)
[2018-05-07] MEDS: Naloxegol Oxalate 25 MG Tab PO SCH (08:10)
--- NOTE | 2018-05-07 15:03 | PCM.PN ---
- General Info Date of Service: 05/07/18 Functional Status: Reports: Pain Controlled, Tolerating Diet, Ambulating, Urinating. Denies: New Symptoms - Review of Systems General: Reports: No Symptoms HEENT: Reports: No Symptoms Pulmonary: Reports: No Symptoms Cardiovascular: Reports: Dyspnea on Exertion, Edema Gastrointestinal: Denies: Abdominal Pain, Constipation, Decreased Appetite, Difficulty Swallowing, Nausea, Vomiting Genitourinary: Reports: No Symptoms Musculoskeletal: Reports: Shoulder Pain Skin: Reports: No Symptoms Neurological: Reports: Pre-Existing Deficit, Difficulty Walking. Denies: Paresthesia Psychiatric: Reports: No Symptoms - Patient Data Vitals - Most Recent: Last Vital Signs Temp 97.2 F 05/07/18 06:15 Pulse 62 05/07/18 06:15 Resp 18 05/07/18 06:15 BP 142/71 H 05/07/18 06:15 Pulse Ox 97 05/07/18 06:15 Weight - Most Recent: 190 lb 2 oz I&O - Last 24 Hours: Intake & Output 05/07/18 05/07/18 05/07/18 06:59 14:59 22:59 Intake Total 50 440 Balance 50 440 Lab Results Last 24 Hours: Laboratory Results - last 24 hr 05/07/18 Range/Units 06:32 POC Glucose 144 H (74-106) mg/dl Med Orders - Current: Current Medications Acetaminophen (Tylenol Extra Strength) 1,000 mg PO Q8H [facility] Last Admin: 05/07/18 14:06 Dose: 1,000 mg Al Hydroxide/Mg Hydroxide (Mag-Al Susp) 30 ml PO Q6H PRN PRN Reason: Heartburn Last Admin: 05/03/18 19:59 Dose: 30 ml Aspirin (Halfprin) 81 mg PO BEDTIME [facility] Last Admin: 05/06/18 21:06 Dose: 81 mg Bisacodyl (Dulcolax) 10 mg RECTAL DAILY PRN PRN Reason: Constipation Last Admin: 01/08/18 11:45 Dose: 10 mg Docusate Sodium (Colace) 100 mg PO DAILY [facility] Last Admin: 05/07/18 08:08 Dose: 100 mg Multivitamins/Minerals (Centrum) 1 tab PO DAILY [facility] Last Admin: 05/07/18 08:08 Dose: 1 tab Allopurinol 100 Mg (Tab) 1 each PO DAILY [facility] Last Admin: 05/07/18 08:09 Dose: 1 each Metoprolol Tartrate (100 Mg Tab) 0.5 each PO BID [facility] Last Admin: 05/07/18 08:10 Dose: 0.5 each Simvastatin 20 Mg (Tab) 1 each PO BEDTIME KIERA Last Admin: 05/06/18 20:56 Dose: 1 each Prochlorperazine 10 (Mg Tab) 1 each PO QID PRN PRN Reason: Nausea Last Admin: 05/03/18 20:42 Dose: 1 each Furosemide 20 Mg Tab 1 each PO SuTuThSa@1500 [facility] Last Admin: 05/07/18 14:07 Dose: 1 each Furosemide 20 Mg Tab 1 each PO DAILY@0700 [facility] Last Admin: 05/07/18 06:41 Dose: 1 each Sertraline 100 Mg (Tab) 1.5 each PO BEDTIME [facility] Last Admin: 05/06/18 20:56 Dose: 1.5 each Omeprazole 20 Mg Cap (.Cr) 1 each PO BID@0600,1700 [facility] Last Admin: 05/07/18 06:41 Dose: 1 each Ondansetron 4 Mg Tab 2 each PO TID PRN PRN Reason: nausea or vomitting Last Admin: 04/21/18 08:54 Dose: 2 each Naloxegol Oxalate 25 (Mg Tab) 1 each PO DAILY [facility] Last Admin: 05/07/18 08:10 Dose: 1 each Bupropion 150 Mg Tab (.Er) 1 each PO DAILY [facility] Last Admin: 05/07/18 08:09 Dose: 1 each Oxycodone Er 10 Mg (Tab.Er) 1 each PO Q12H [facility] Last Admin: 05/07/18 08:08 Dose: 1 each Oxycodone 5 Mg Tab 5 each PO Q6H PRN PRN Reason: Pain Last Admin: 04/30/18 18:25 Dose: 5 each Diclofenac Sodium 1% (Gel 100 Gm Tube) 1 each TOP QID PRN PRN Reason: Pain Last Admin: 05/01/18 14:13 Dose: 1 each Rozerem 8mg Tablet 1 each PO BEDTIME [facility] Last Admin: 05/06/18 20:56 Dose: 1 each Alprazolam 0.25 Mg (Tab) 1 each PO Q8H PRN PRN Reason: Anxiety Amlodipine 5 Mg Tab 1 each PO DAILY [facility] Last Admin: 05/07/18 08:10 Dose: 1 each Chlorthalidone 25 Mg (Tab) 0.5 each PO DAILY [facility] Last Admin: 05/07/18 08:09 Dose: 0.5 each Insulin Detemir 100 (Units/Ml 3 Ml Pen) 38 each SUBCUT DAILY [facility] Last Admin: 05/07/18 08:10 Dose: 38 each Nystatin Topical (Powder 15 Gm Bottle) 0 each TOP DAILY KIERA Last Admin: 05/07/18 08:09 Dose: 1 each Nystatin Topical (Powder 15 Gm Bottle) 0 each TOP TID PRN PRN Reason: Rash Last Admin: 04/24/18 09:30 Dose: 1 each Losartan 100mg Tab 1 each PO BEDTIME [facility] Last Admin: 05/06/18 20:56 Dose: 1 each Polyethylene Glycol (Miralax) 17 gm PO DAILY PRN PRN Reason: Constipation Last Admin: 03/26/18 14:58 Dose: 17 gm Polysaccharide Iron Complex (Ferrex 150) 150 mg PO Q48H [facility] Last Admin: 05/06/18 08:17 Dose: 150 mg Senna/Docusate Sodium (Senna Plus) 1 tab PO BEDTIME [facility] Last Admin: 05/06/18 21:06 Dose: 1 tab Simethicone (Simethicone) 80 mg PO Q6H PRN PRN Reason: Heartburn Last Admin: 05/03/18 20:01 Dose: 80 mg Zinc Gluconate (Zinc) 50 mg PO DAILY [facility] Last Admin: 05/07/18 08:08 Dose: 50 mg Discontinued Medications Acetaminophen (Tylenol Extra Strength) 1,000 mg PO Q8H [facility] Last Admin: 10/23/17 02:00 Dose: 1,000 mg Acetaminophen (Tylenol Extra Strength) 1,000 mg PO Q8H [facility] Last Admin: 11/22/17 15:12 Dose: 1,000 mg Acetaminophen (Tylenol) Confirm Administered Dose 975 mg .ROUTE .STK-MED ONE Stop: 11/08/17 07:36 Last Admin: 11/08/17 08:28 Dose: 975 mg Hydrocodone Bitart/Acetaminophen ([place] 325-5 Mg) 1 - 2 tab PO Q4H PRN PRN Reason: Moderate Pain Last Admin: 10/24/17 19:26 Dose: 1 tab Al Hydroxide/Mg Hydroxide (Mag-Al Susp) Confirm Administered Dose 30 ml .ROUTE .STK-MED ONE Stop: 01/09/18 21:49 Last Admin: 01/09/18 22:00 Dose: 30 ml Al Hydroxide/Mg Hydroxide (Mag-Al Susp) 30 ml PO Q6H PRN PRN Reason: Heartburn Last Admin: 01/09/18 22:00 Dose: 30 ml Allopurinol (Zyloprim) 100 mg PO DAILY [facility] Last Admin: 02/15/18 08:51 Dose: 100 mg Alprazolam (Xanax) 0.25 mg PO Q8H PRN PRN Reason: Anxiety Last Admin: 02/19/18 02:06 Dose: 0.25 mg Amlodipine Besylate (Norvasc) 5 mg PO DAILY [facility] Last Admin: 02/16/18 08:24 Dose: 5 mg Bacitracin (Bacitracin Oint) 1 gm TOP DAILY PRN PRN Reason: Rash Bisacodyl (Dulcolax) 10 mg RECTAL ONETIME ONE Stop: 12/21/17 04:02 Last Admin: 12/21/17 04:17 Dose: Not Given Bisacodyl (Dulcolax) Confirm Administered Dose 10 mg .ROUTE .STK-MED ONE Stop: 01/08/18 11:37 Last Admin: 01/08/18 16:15 Dose: Not Given Bupropion HCl (Wellbutrin Xl) 150 mg PO DAILY [facility] Last Admin: 02/16/18 08:22 Dose: 150 mg Calcium Carbonate/Glycine (Tums) 500 mg PO TID PRN PRN Reason: Indigestion Ciprofloxacin (Ciprofloxacin Hcl) 500 mg PO BID [facility] Stop: 12/24/17 21:01 Last Admin: 12/24/17 21:04 Dose: 500 mg Al Hydroxide/Mg Hydroxide 40 ml/ Diphenhydramine HCl 12.5 mg/ Lidocaine HCl 40 ml 0 ml PO TID PRN PRN Reason: mouth sores/burning Last Admin: 10/28/17 08:11 Dose: 10 ml Cranberry (Azo Cranberry) 1 each PO BEDTIME [facility] Last Admin: 11/07/17 21:46 Dose: Not Given Diclofenac Sodium (Voltaren 1% Gel) 1 gm TOP QID [facility] Last Admin: 01/26/18 08:10 Dose: Not Given Diclofenac Sodium (Voltaren 1% Gel) 1 gm TOP QID PRN PRN Reason: Pain Last Admin: 02/08/18 20:12 Dose: 1 applic Furosemide (Lasix) 20 mg PO DAILY [facility] Last Admin: 12/13/17 09:25 Dose: 20 mg Furosemide (Lasix) 20 mg PO SUTUTHSA@1700 [facility] Last Admin: 12/12/17 16:01 Dose: 20 mg Furosemide (Lasix) 20 mg PO SuTuThSa@1500 [facility] Last Admin: 02/13/18 14:52 Dose: 20 mg Furosemide (Lasix) 20 mg PO DAILY@0700 [facility] Last Admin: 02/15/18 06:44 Dose: 20 mg Furosemide (Lasix) Confirm Administered Dose 20 mg .ROUTE .[facility] ONE Stop: 04/03/18 06:35 Last Admin: 04/03/18 09:08 Dose: Not Given Heparin Sodium (Porcine) (Heparin Lock Flush 100 Units/Ml) 500 units FLUSH ASDIRECTED PRN PRN Reason: Other Cefepime HCl 1 gm/ Sodium (Chloride) 50 mls @ 100 mls/hr IV Q8H [facility] Last Admin: 11/01/17 18:52 Dose: Not Given Cefepime HCl 1 gm/ Sodium (Chloride) 50 mls @ 100 mls/hr IV Q24H [facility] Last Admin: 11/07/17 20:32 Dose: 100 mls/hr Sodium Chloride (Normal Saline) Confirm Administered Dose 50 mls @ as directed .ROUTE .[facility] ONE Stop: 11/02/17 22:10 Last Admin: 11/02/17 23:15 Dose: 100 mls/hr Sodium Chloride (Normal Saline) Confirm Administered Dose 50 mls @ as directed .ROUTE .[facility] ONE Stop: 11/03/17 21:46 Last Admin: 11/03/17 21:56 Dose: Not Given Sodium Chloride (Normal Saline) 50 mls @ 50 mls/hr IV ASDIRECTED [facility] Albumin Human (Flexbumin 25%) 100 mls @ 50 mls/hr IV ONETIME ONE Stop: 11/22/17 13:59 Last Admin: 11/22/17 13:07 Dose: 50 mls/hr Sodium Chloride (Normal Saline) 250 mls @ 125 mls/hr IV ASDIRECTED [facility] Stop: 11/22/17 21:00 Last Admin: 11/22/17 15:40 Dose: 125 mls/hr Ciprofloxacin/Dextrose (Cipro In D5w 400 Mg/200 Ml) 200 mls @ 200 mls/hr IV Q12H [facility] Last Admin: 11/26/17 06:13 Dose: 200 mls/hr Sodium Chloride (Normal Saline) Confirm Administered Dose 100 mls @ as directed .ROUTE .STK-MED ONE Stop: 11/22/17 20:04 Last Admin: 11/22/17 20:05 Dose: 100 mls/hr Sodium Chloride (Normal Saline) 100 mls @ 200 mls/hr IV ASDIRECTED [facility] Sodium Chloride (Normal Saline) 100 mls @ 20 mls/hr IV DAILY@1900 [facility] Last Admin: 11/25/17 18:08 Dose: 20 mls/hr Insulin Aspart (Novolog) 0 unit SUBCUT WITHMEALSANDBED [facility]; Protocol Stop: 10/31/17 00:00 Last Admin: 10/30/17 21:02 Dose: 5 units Insulin Aspart (Novolog) 2 unit SUBCUT ONETIME ONE Stop: 10/31/17 20:59 Last Admin: 10/31/17 21:07 Dose: 2 units Insulin Aspart (Novolog) 10 unit SUBCUT ONETIME ONE Stop: 11/12/17 17:44 Last Admin: 11/12/17 18:06 Dose: 10 units Insulin Aspart (Novolog) 0 unit SUBCUT TIDMEALS [facility]; Protocol Last Admin: 12/21/17 17:16 Dose: Not Given Insulin Detemir (Levemir) 44 unit SUBCUT DAILY [facility] Last Admin: 10/30/17 10:10 Dose: Not Given Insulin Detemir (Levemir) 40 unit SUBCUT DAILY [facility] Last Admin: 11/14/17 08:22 Dose: 40 units Insulin Detemir (Levemir) 44 unit SUBCUT DAILY [facility] Last Admin: 11/29/17 11:32 Dose: Not Given Insulin Detemir (Levemir) 34 unit SUBCUT DAILY [facility] Last Admin: 12/02/17 10:11 Dose: Not Given Insulin Detemir (Levemir) 30 unit SUBCUT DAILY [facility] Last Admin: 12/20/17 08:02 Dose: 30 units Insulin Detemir (Levemir) 40 unit SUBCUT DAILY [facility] Last Admin: 02/09/18 08:17 Dose: 40 units Insulin Detemir (Levemir) 10 unit SUBCUT ONETIME ONE Stop: 12/20/17 13:01 Last Admin: 12/20/17 14:38 Dose: 10 units Insulin Detemir (Levemir) 42 unit SUBCUT DAILY [facility] Last Admin: 02/16/18 08:24 Dose: 42 unit Lidocaine/Epinephrine (Xylocaine 1% With Epinephrine 1:100,000) 3 ml INJECT ONETIME ONE Stop: 11/05/17 09:01 Last Admin: 11/05/17 09:00 Dose: 3 ml Loperamide HCl (Imodium) 2 mg PO ASDIRECTED PRN PRN Reason: Diarrhea Last Admin: 11/30/17 05:53 Dose: 2 mg Lorazepam (Ativan) 0.25 mg PO Q8H PRN PRN Reason: Anxiety Last Admin: 12/13/17 18:03 Dose: 0.25 mg Lorazepam (Ativan) 0.25 mg PO Q8H PRN PRN Reason: Anxiety Losartan Potassium (Cozaar) 25 mg PO DAILY [facility] Last Admin: 11/27/17 09:05 Dose: 25 mg Losartan Potassium (Cozaar) 50 mg PO DAILY [facility] Last Admin: 12/25/17 08:57 Dose: 50 mg Losartan Potassium (Cozaar) 75 mg PO DAILY [facility] Last Admin: 01/17/18 08:26 Dose: 75 mg Losartan Potassium (Cozaar) 100 mg PO DAILY [facility] Last Admin: 02/16/18 08:24 Dose: 100 mg Magnesium Hydroxide (Milk Of Magnesia) 30 ml PO DAILY PRN PRN Reason: Constipation Last Admin: 10/26/17 09:10 Dose: 30 ml Melatonin (Melatonin) 6 mg PO BEDTIME [facility] Metoprolol Tartrate (Lopressor) 50 mg PO BID [facility] Last Admin: 02/15/18 08:51 Dose: 50 mg Multivitamins/Minerals (Centrum) 1 tab PO DAILY [facility] Last Admin: 12/20/17 08:03 Dose: 1 tab Multivitamins/Minerals (Centrum) 1 tab PO DAILY@1200 [facility] Last Admin: 12/27/17 11:36 Dose: 1 tab Mupirocin (Bactroban Crm) 1 gm TOP TID [facility] Last Admin: 10/29/17 11:29 Dose: Not Given Mupirocin (Bactroban Oint) 0 gm TOP DAILY [facility] Last Admin: 12/06/17 10:12 Dose: 1 applic Naloxegol (Movantik) 25 mg PO DAILY [facility] Last Admin: 02/16/18 08:22 Dose: 25 mg Insulin Degludec ( (Tresiba) 44units) 44 units SUBCUT DAILY [facility] Nystatin (Nystop) 0 gm TOP BID [facility] Last Admin: 10/25/17 08:58 Dose: 1 applic Nystatin (Nystop) 0 gm TOP TID [facility] Last Admin: 10/26/17 11:15 Dose: Not Given Nystatin (Nystatin Ointment) 0 gm TOP TID [facility] Last Admin: 11/04/17 15:49 Dose: Not Given Nystatin (Nystatin Ointment) 1 gm TOP DAILY PRN PRN Reason: Rash Last Admin: 12/26/17 08:19 Dose: 1 applic Nystatin (Nystatin Ointment) 1 gm TOP BID [facility] Last Admin: 01/01/18 09:12 Dose: Not Given Nystatin (Nystatin Ointment) 1 gm TOP BID PRN PRN Reason: Rash Nystatin (Nystatin Ointment) 0 gm TOP BID PRN PRN Reason: Rash Nystatin (Nystop) 0 gm TOP TID [facility] Last Admin: 04/21/18 08:55 Dose: 1 applic Olanzapine (Zyprexa) 10 mg PO ASDIRECTED [facility] Olanzapine (Zyprexa) 10 mg PO BEDTIME [facility] Stop: 11/14/17 21:01 Last Admin: 11/14/17 21:28 Dose: 10 mg Olanzapine (Zyprexa) 10 mg PO BEDTIME [facility] Stop: 11/22/17 21:01 Last Admin: 11/22/17 21:41 Dose: 10 mg Omeprazole (Omeprazole) 20 mg PO SUTUTHSA@2100 [facility] Last Admin: 10/23/17 21:24 Dose: 20 mg Omeprazole (Omeprazole) 20 mg PO DAILY@2100 [facility] Last Admin: 12/11/17 20:18 Dose: 20 mg Omeprazole (Omeprazole) 20 mg PO BID [facility] Last Admin: 12/13/17 09:27 Dose: 20 mg Omeprazole (Omeprazole) 20 mg PO BIDAC [facility] Last Admin: 12/17/17 16:45 Dose: 20 mg Omeprazole (Omeprazole) 20 mg PO DAILY@0600,1700 [facility] Last Admin: 01/20/18 06:27 Dose: 20 mg Omeprazole (Omeprazole) 20 mg PO BID@0600,1700 [facility] Last Admin: 02/15/18 06:44 Dose: 20 mg Omeprazole (Omeprazole) Confirm Administered Dose 20 mg .ROUTE .STK-MED ONE Stop: 04/03/18 06:36 Last Admin: 04/03/18 09:08 Dose: Not Given Ondansetron HCl (Zofran Odt) 8 mg PO TID PRN PRN Reason: nausea or vomitting Last Admin: 01/26/18 17:53 Dose: 8 mg Oxycodone HCl (Oxycodone) 5 mg PO Q6H [facility] Last Admin: 10/23/17 06:11 Dose: 5 mg Oxycodone HCl (Oxycodone) 5 mg PO Q6H [facility] Last Admin: 10/24/17 06:21 Dose: Not Given Oxycodone HCl (Oxycodone) 5 mg PO Q6H PRN PRN Reason: Pain Last Admin: 02/14/18 13:38 Dose: 5 mg Oxycodone HCl (Oxycodone) 5 mg PO BEDTIME [facility] Last Admin: 12/07/17 20:02 Dose: 5 mg Oxycodone HCl (Oxycodone) 5 mg PO ONETIME ONE Stop: 11/23/17 18:12 Last Admin: 11/23/17 18:48 Dose: 5 mg Oxycodone HCl (Oxycodone) 7.5 mg PO BEDTIME KIERA Stop: 12/13/17 23:00 Last Admin: 12/13/17 20:05 Dose: 7.5 mg Oxycodone HCl (Oxycodone) 5 mg PO ONETIME ONE Stop: 12/13/17 17:59 Last Admin: 12/13/17 18:21 Dose: 5 mg Oxycodone HCl (Oxycontin) 10 mg PO Q12H [facility] Last Admin: 02/16/18 08:22 Dose: 10 mg Oxycodone HCl (Oxycontin) Confirm Administered Dose 10 mg .ROUTE .STK-MED ONE Stop: 12/31/17 11:25 Last Admin: 12/31/17 11:26 Dose: 10 mg Losartan 100 Mg Tab 1 each PO DAILY [facility] Last Admin: 04/29/18 08:58 Dose: 1 each Amlodipine 5 Mg Tab 5 each PO DAILY [facility] Last Admin: 03/07/18 08:22 Dose: 5 each Insulin Detemir 100 (Units/Ml 3 Ml Pen) 42 each SUBCUT DAILY [facility] Last Admin: 04/11/18 09:00 Dose: 42 each Nystatin Cream 30gm (Tube) 1 each TOP BID PRN PRN Reason: Rash Last Admin: 04/07/18 11:25 Dose: 1 each Polysaccharide Iron Complex (Ferrex 150) 150 mg PO DAILY [facility] Last Admin: 12/20/17 08:05 Dose: 150 mg Polysaccharide Iron Complex (Ferrex 150) 150 mg PO DAILY@1200 [facility] Last Admin: 12/27/17 11:36 Dose: 150 mg Polysaccharide Iron Complex (Ferrex 150) 150 mg PO DAILY [facility] Last Admin: 02/09/18 08:17 Dose: 150 mg Polysaccharide Iron Complex (Ferrex 150) 150 mg PO Q48H [facility] Last Admin: 02/09/18 11:46 Dose: Not Given Prochlorperazine Maleate (Compazine) 10 mg PO QID PRN PRN Reason: Nausea Prochlorperazine Maleate (Compazine) 10 mg PO QID PRN PRN Reason: Nausea Last Admin: 01/16/18 20:25 Dose: 10 mg Promethazine HCl (Phenergan) 25 mg IM Q6H PRN PRN Reason: Nausea Last Admin: 04/22/18 21:37 Dose: 25 mg Ramelteon (Rozerem) 8 mg PO BEDTIME [facility] Last Admin: 02/16/18 22:33 Dose: 8 mg Senna/Docusate Sodium (Senna Plus) 1 tab PO BID PRN PRN Reason: Constipation Last Admin: 10/28/17 08:08 Dose: 1 tab Senna/Docusate Sodium (Senna Plus) 1 tab PO BID [facility] Last Admin: 11/04/17 15:49 Dose: Not Given Senna/Docusate Sodium (Senna Plus) 1 - 2 tab PO DAILY PRN PRN Reason: Constipation Sertraline HCl (Zoloft) 100 mg PO BEDTIME [facility] Last Admin: 01/07/18 20:58 Dose: 100 mg Sertraline HCl (Zoloft) 150 mg PO BEDTIME [facility] Last Admin: 02/14/18 20:02 Dose: 150 mg Simvastatin (Zocor) 40 mg PO BEDTIME [facility] Last Admin: 02/14/18 20:03 Dose: 40 mg Sodium Chloride (Felt Nasal [place]) 1 ml ALDO QID PRN PRN Reason: Dryness Last Admin: 11/12/17 21:03 Dose: 1 spray Sodium Chloride (Normal Saline) 20 ml FLUSH ASDIRECTED PRN PRN Reason: Other Sodium Chloride (Saline Flush) 20 ml FLUSH Q8H [facility] Last Admin: 11/02/17 10:46 Dose: Not Given Sodium Chloride (Saline Flush) 20 ml FLUSH Q8H [facility] Last Admin: 11/11/17 12:20 Dose: Not Given Zinc Gluconate (Zinc) 50 mg PO DAILY [facility] Last Admin: 12/20/17 08:05 Dose: 50 mg Zinc Gluconate (Zinc) 50 mg PO DAILY@1200 [facility] Last Admin: 12/27/17 11:35 Dose: 50 mg - Exam Quality Assessment: Skin Breakdown (healing decubitus ulcer sacrum. ). No: Supplemental Oxygen General: Alert, Oriented Neck: Supple Lungs: Clear to Auscultation, Normal Respiratory Effort Cardiovascular: Regular Rate, Regular Rhythm GI/Abdominal Exam: Soft (Female) Exam: Deferred Extremities: Pedal Edema (mild BLE), Arm Pain. No: Slow Capillary Refill, Joint Swelling Peripheral Pulses: 2+: Radial (L), Radial (R) Skin: Other (healing decubitus ulcer sacrum. ) Wound/Incisions: Healing Well, No Drainage Neurological: No New Focal Deficit Psy/Mental Status: Alert, Normal Affect, Normal Mood - Problem List Review Problem List Initiated/Reviewed/Updated: Yes - Plan Plan:: HPI: This is a 76 year old female who had previously been in swing bed status due to a left humeral fracture and deconditioning. The patient has been recently diagnosed with peritoneal carcinomatosis. The patient was sent up to [facility] on 10/20/17 for abdominal paracentesis and pleurx catheter placement. She had labs done that day which showed a hemoglobin of 6.5. She was then admitted to their hospitalist services. She was given 2 units of PRBCs. She was due for her second cycle of carboplatin and taxol while there and this was completed on 10/21/17. She was also given Neulasta prior to discharge. The patient was admitted back to swing bed status for rehabilitation of her fracture and deconditioning. PRIMARY HOSPITAL PROBLEMS Left humeral head fracture. Patient with periodic pain however mainly on movement/PT manipulation She does have significant limitations in her left arm with almost no ability to abduct 30 however ongoing physical therapy is assisting with ROM and strengthening. Stage IV pressure ulcer to coccyx, no signs and symptoms of infection, healing slowly. No longer receiving NPWT due to observed undermining/sinus tracking in wound, and the need for repeated sharps debridement, along with little to no drainage. Decubitus ulcer good granulation base coccyx, 2 cm superior tracking , healing however very slow, signs of infection Deconditioning. Has greatly improved, Continue physical therapy right bicipital tendon rupture. Cont PT, no further tx due to condition/co- morbities, age, occupation SECONDARY ASSESSMENT/PLAN: Malignant ascites. PleurX catheter clogged. Unsuccessful attempt upon removing in the past. Anemia due to antineoplastic chemotherapy. recent hemoglobin Hgb stable at 12.3. Reassess Anxiety, very stable, Much improved affect Primary peritoneal carcinomatosis. Followed by Dr. Collier/oncology with ongoing Pleurx abdominal drain however is clogged. History of endometrial cancer, s/p hysterceomty 2009. CAD, no ischemic picture, stable. Immunocompromised host. No fever no infectious process. HTN. Continue lopressor and losartan and Norvasc 5 mg Aortic stenosis. History of atrial flutter. T2dm 2 DM. Adequate fasting Accuchecks daily. Tresiba switched to levemir daily due to not being available in house. 42 units CKD stage 3. Creatinine acceptable Hyperlipidemia. Continue simvastatin. Obesity. Gout. Continue allopurinol 100 mg daily. Diabetic retinopathy. Depression. Continue zoloft. GERD. Continue omeprazole bid, limit fluids during meals, patient positioning after meals OAB. Osteoarthritis. History of hypercalcemia. Recent Hypoalbuminemia. DVT prophylaxis. Score of 6, Continue with phan stockings. Overall plan: Continue an SNF with PT. Continue with physical therapy with left humeral exercises. Anticipate discharge to long-term care after [place].
[2018-05-07] MEDS: Aspirin 81 MG Tab.EC PO SCH (21:08)
[2018-05-07] MEDS: Sertraline 100 MG Tab PO SCH (21:11)
[2018-05-07] MEDS: Simvastatin 20 MG Tab PO SCH (21:11)
[2018-05-07] MEDS: ROZEREM 8 MG PO SCH (21:12)
[2018-05-08] MEDS: Omeprazole 20 MG Cap.CR PO SCH ×2 (06:27→17:42)
[2018-05-08] MEDS: Acetaminophen 500 MG Tab PO SCH ×3 (06:27→23:25)
[2018-05-08] MEDS: Furosemide 20 MG Tab PO SCH ×2 (06:28→15:18)
[2018-05-08] MEDS: Multivitamins with Minerals/Iron/Folic Acid/Lycopene Tab PO SCH (08:14)
[2018-05-08] MEDS: Chlorthalidone 25 MG Tab PO SCH (08:14)
[2018-05-08] MEDS: Zinc (Zinc Gluconate) 50 MG Tab PO SCH (08:14)
[2018-05-08] MEDS: Naloxegol Oxalate 25 MG Tab PO SCH (08:14)
[2018-05-08] MEDS: Docusate Sodium 100 MG Cap PO SCH (08:14)
[2018-05-08] MEDS: Allopurinol 100 MG Tab PO SCH (08:15)
[2018-05-08] MEDS: buPROPion 150 MG Tab.ER PO SCH (08:15)
[2018-05-08] MEDS: amLODIPine 5 MG Tab PO SCH (08:15)
[2018-05-08] MEDS: Insulin Detemir 100 Units/ML 3 ML Pen SUBCUT SCH (08:17)
[2018-05-08] MEDS: Nystatin Topical Powder 15 GM Bottle TOP PRN (08:18)
[2018-05-08] MEDS: Iron Polysaccharides Complex 150 MG Cap PO SCH (08:36)
[2018-05-08] MEDS: oxyCODONE ER 10 MG TAB.ER PO SCH ×2 (08:37→21:33)
[2018-05-08] MEDS: Nystatin Topical Powder 15 GM Bottle TOP SCH (08:37)
[2018-05-08] MEDS: Metoprolol Tartrate 100 MG Tab PO SCH ×2 (08:37→21:33)
[2018-05-08] MEDS: Aspirin 81 MG Tab.EC PO SCH (21:32)
[2018-05-08] MEDS: Sertraline 100 MG Tab PO SCH (21:32)
[2018-05-08] MEDS: ROZEREM 8 MG PO SCH (21:33)
[2018-05-08] MEDS: Simvastatin 20 MG Tab PO SCH (21:33)
[2018-05-09] MEDS: Acetaminophen 500 MG Tab PO SCH ×2 (06:26→15:11)
[2018-05-09] MEDS: Furosemide 20 MG Tab PO SCH (06:28)
[2018-05-09] MEDS: Omeprazole 20 MG Cap.CR PO SCH ×2 (06:28→16:00)
[2018-05-09] MEDS: Aluminum Hydroxide/Magnesium Hydroxide Susp 30 ML Cup PO PRN (06:33)
[2018-05-09] MEDS: Metoprolol Tartrate 100 MG Tab PO SCH (08:08)
[2018-05-09] MEDS: Zinc (Zinc Gluconate) 50 MG Tab PO SCH (08:08)
[2018-05-09] MEDS: Multivitamins with Minerals/Iron/Folic Acid/Lycopene Tab PO SCH (08:08)
[2018-05-09] MEDS: Docusate Sodium 100 MG Cap PO SCH (08:08)
[2018-05-09] MEDS: buPROPion 150 MG Tab.ER PO SCH (08:09)
[2018-05-09] MEDS: Insulin Detemir 100 Units/ML 3 ML Pen SUBCUT SCH (08:09)
[2018-05-09] MEDS: Allopurinol 100 MG Tab PO SCH (08:09)
[2018-05-09] MEDS: Chlorthalidone 25 MG Tab PO SCH (08:09)
[2018-05-09] MEDS: amLODIPine 5 MG Tab PO SCH (08:10)
[2018-05-09] MEDS: Naloxegol Oxalate 25 MG Tab PO SCH (08:10)
[2018-05-09] MEDS: Nystatin Topical Powder 15 GM Bottle TOP SCH (08:11)
[2018-05-09] MEDS: oxyCODONE ER 10 MG TAB.ER PO SCH (08:15)
[2018-05-10] MEDS: Sertraline 100 MG Tab PO SCH ×2 (00:55→21:20)
[2018-05-10] MEDS: Simvastatin 20 MG Tab PO SCH ×2 (00:57→21:20)
[2018-05-10] MEDS: ROZEREM 8 MG PO SCH ×2 (00:57→21:19)
[2018-05-10] MEDS: oxyCODONE ER 10 MG TAB.ER PO SCH ×3 (00:58→21:19)
[2018-05-10] MEDS: Metoprolol Tartrate 100 MG Tab PO SCH ×3 (00:58→21:21)
[2018-05-10] MEDS: Aspirin 81 MG Tab.EC PO SCH ×2 (01:05→21:19)
[2018-05-10] MEDS: Acetaminophen 500 MG Tab PO SCH ×4 (01:08→22:52)
[2018-05-10] MEDS: Furosemide 20 MG Tab PO SCH ×2 (06:20→14:00)
[2018-05-10] MEDS: Omeprazole 20 MG Cap.CR PO SCH ×2 (06:22→17:08)
[2018-05-10] MEDS: Docusate Sodium 100 MG Cap PO SCH (08:28)
[2018-05-10] MEDS: Zinc (Zinc Gluconate) 50 MG Tab PO SCH (08:28)
[2018-05-10] MEDS: Naloxegol Oxalate 25 MG Tab PO SCH (08:28)
[2018-05-10] MEDS: Multivitamins with Minerals/Iron/Folic Acid/Lycopene Tab PO SCH (08:28)
[2018-05-10] MEDS: Nystatin Topical Powder 15 GM Bottle TOP SCH (08:29)
[2018-05-10] MEDS: buPROPion 150 MG Tab.ER PO SCH (08:30)
[2018-05-10] MEDS: Insulin Detemir 100 Units/ML 3 ML Pen SUBCUT SCH (08:30)
[2018-05-10] MEDS: Allopurinol 100 MG Tab PO SCH (08:30)
[2018-05-10] MEDS: Chlorthalidone 25 MG Tab PO SCH (08:30)
[2018-05-10] MEDS: amLODIPine 5 MG Tab PO SCH (08:30)
[2018-05-10] MEDS: Iron Polysaccharides Complex 150 MG Cap PO SCH (08:34)
[2018-05-11] MEDS: Acetaminophen 500 MG Tab PO SCH ×3 (06:13→23:30)
[2018-05-11] MEDS: Furosemide 20 MG Tab PO SCH (06:13)
[2018-05-11] MEDS: Omeprazole 20 MG Cap.CR PO SCH ×2 (06:13→17:33)
[2018-05-11] MEDS: Multivitamins with Minerals/Iron/Folic Acid/Lycopene Tab PO SCH (08:15)
[2018-05-11] MEDS: Docusate Sodium 100 MG Cap PO SCH (08:15)
[2018-05-11] MEDS: Zinc (Zinc Gluconate) 50 MG Tab PO SCH (08:15)
[2018-05-11] MEDS: oxyCODONE ER 10 MG TAB.ER PO SCH ×2 (08:15→21:51)
[2018-05-11] MEDS: Nystatin Topical Powder 15 GM Bottle TOP SCH (08:16)
[2018-05-11] MEDS: buPROPion 150 MG Tab.ER PO SCH (08:19)
[2018-05-11] MEDS: Chlorthalidone 25 MG Tab PO SCH (08:20)
[2018-05-11] MEDS: amLODIPine 5 MG Tab PO SCH (08:20)
[2018-05-11] MEDS: Allopurinol 100 MG Tab PO SCH (08:20)
[2018-05-11] MEDS: Naloxegol Oxalate 25 MG Tab PO SCH (08:20)
[2018-05-11] MEDS: Insulin Detemir 100 Units/ML 3 ML Pen SUBCUT SCH (08:21)
[2018-05-11] MEDS: Metoprolol Tartrate 100 MG Tab PO SCH ×2 (08:21→21:49)
[2018-05-11] MEDS: ROZEREM 8 MG PO SCH (21:48)
[2018-05-11] MEDS: Aspirin 81 MG Tab.EC PO SCH (21:48)
[2018-05-11] MEDS: Sertraline 100 MG Tab PO SCH (21:50)
[2018-05-11] MEDS: Simvastatin 20 MG Tab PO SCH (21:51)
[2018-05-12] MEDS: Acetaminophen 500 MG Tab PO SCH ×2 (06:11→15:43)
[2018-05-12] MEDS: Omeprazole 20 MG Cap.CR PO SCH ×2 (06:12→17:26)
[2018-05-12] MEDS: Furosemide 20 MG Tab PO SCH ×2 (06:12→15:46)
[2018-05-12] MEDS: Multivitamins with Minerals/Iron/Folic Acid/Lycopene Tab PO SCH (08:07)
[2018-05-12] MEDS: Docusate Sodium 100 MG Cap PO SCH (08:07)
[2018-05-12] MEDS: Allopurinol 100 MG Tab PO SCH (08:07)
[2018-05-12] MEDS: Zinc (Zinc Gluconate) 50 MG Tab PO SCH (08:07)
[2018-05-12] MEDS: oxyCODONE ER 10 MG TAB.ER PO SCH ×2 (08:07→20:41)
[2018-05-12] MEDS: buPROPion 150 MG Tab.ER PO SCH (08:08)
[2018-05-12] MEDS: amLODIPine 5 MG Tab PO SCH (08:08)
[2018-05-12] MEDS: Naloxegol Oxalate 25 MG Tab PO SCH (08:09)
[2018-05-12] MEDS: Chlorthalidone 25 MG Tab PO SCH (08:09)
[2018-05-12] MEDS: Nystatin Topical Powder 15 GM Bottle TOP SCH (08:12)
[2018-05-12] MEDS: Insulin Detemir 100 Units/ML 3 ML Pen SUBCUT SCH (08:13)
[2018-05-12] MEDS: Metoprolol Tartrate 100 MG Tab PO SCH ×2 (08:16→20:46)
[2018-05-12] MEDS: Iron Polysaccharides Complex 150 MG Cap PO SCH (13:45)
[2018-05-12] MEDS: Simvastatin 20 MG Tab PO SCH (20:41)
[2018-05-12] MEDS: Aspirin 81 MG Tab.EC PO SCH (20:41)
[2018-05-12] MEDS: ROZEREM 8 MG PO SCH (20:42)
[2018-05-12] MEDS: Sertraline 100 MG Tab PO SCH (20:42)
[2018-05-13] MEDS: Acetaminophen 500 MG Tab PO SCH ×4 (00:22→23:46)
[2018-05-13] MEDS: Aluminum Hydroxide/Magnesium Hydroxide Susp 30 ML Cup PO PRN (00:24)
[2018-05-13] MEDS: Omeprazole 20 MG Cap.CR PO SCH ×2 (06:01→18:10)
[2018-05-13] MEDS: Furosemide 20 MG Tab PO SCH (06:01)
[2018-05-13] MEDS: oxyCODONE ER 10 MG TAB.ER PO SCH ×2 (10:00→20:39)
[2018-05-13] MEDS: Metoprolol Tartrate 100 MG Tab PO SCH ×2 (10:00→20:14)
[2018-05-13] MEDS: Zinc (Zinc Gluconate) 50 MG Tab PO SCH (10:00)
[2018-05-13] MEDS: Docusate Sodium 100 MG Cap PO SCH (10:01)
[2018-05-13] MEDS: Multivitamins with Minerals/Iron/Folic Acid/Lycopene Tab PO SCH (10:01)
[2018-05-13] MEDS: amLODIPine 5 MG Tab PO SCH (10:02)
[2018-05-13] MEDS: Naloxegol Oxalate 25 MG Tab PO SCH (10:02)
[2018-05-13] MEDS: buPROPion 150 MG Tab.ER PO SCH (10:02)
[2018-05-13] MEDS: Chlorthalidone 25 MG Tab PO SCH (10:03)
[2018-05-13] MEDS: Allopurinol 100 MG Tab PO SCH (10:03)
[2018-05-13] MEDS: Nystatin Topical Powder 15 GM Bottle TOP SCH (10:04)
[2018-05-13] MEDS: Insulin Detemir 100 Units/ML 3 ML Pen SUBCUT SCH (10:05)
[2018-05-13] MEDS: Sertraline 100 MG Tab PO SCH (20:12)
[2018-05-13] MEDS: Aspirin 81 MG Tab.EC PO SCH (20:12)
[2018-05-13] MEDS: ROZEREM 8 MG PO SCH (20:13)
[2018-05-13] MEDS: Simvastatin 20 MG Tab PO SCH (20:13)
[2018-05-14] MEDS: Acetaminophen 500 MG Tab PO SCH ×3 (06:16→23:33)
[2018-05-14] MEDS: Omeprazole 20 MG Cap.CR PO SCH ×2 (06:16→17:41)
[2018-05-14] MEDS: Furosemide 20 MG Tab PO SCH ×2 (06:17→15:38)
[2018-05-14] MEDS: oxyCODONE ER 10 MG TAB.ER PO SCH ×2 (08:16→20:30)
[2018-05-14] MEDS: Docusate Sodium 100 MG Cap PO SCH (08:16)
[2018-05-14] MEDS: Nystatin Topical Powder 15 GM Bottle TOP SCH (08:16)
[2018-05-14] MEDS: Insulin Detemir 100 Units/ML 3 ML Pen SUBCUT SCH (08:17)
[2018-05-14] MEDS: Metoprolol Tartrate 100 MG Tab PO SCH ×2 (08:17→23:46)
[2018-05-14] MEDS: Multivitamins with Minerals/Iron/Folic Acid/Lycopene Tab PO SCH (08:17)
[2018-05-14] MEDS: Zinc (Zinc Gluconate) 50 MG Tab PO SCH (08:17)
[2018-05-14] MEDS: amLODIPine 5 MG Tab PO SCH (08:18)
[2018-05-14] MEDS: Allopurinol 100 MG Tab PO SCH (08:18)
[2018-05-14] MEDS: Naloxegol Oxalate 25 MG Tab PO SCH (08:18)
[2018-05-14] MEDS: buPROPion 150 MG Tab.ER PO SCH (08:18)
[2018-05-14] MEDS: Chlorthalidone 25 MG Tab PO SCH (08:19)
[2018-05-14] MEDS: Iron Polysaccharides Complex 150 MG Cap PO SCH (08:26)
[2018-05-14] MEDS: Simvastatin 20 MG Tab PO SCH (20:29)
[2018-05-14] MEDS: Aspirin 81 MG Tab.EC PO SCH (20:29)
[2018-05-14] MEDS: ROZEREM 8 MG PO SCH (20:30)
[2018-05-14] MEDS: Sertraline 100 MG Tab PO SCH (20:30)
[2018-05-15] MEDS: Omeprazole 20 MG Cap.CR PO SCH ×2 (06:30→18:00)
[2018-05-15] MEDS: Furosemide 20 MG Tab PO SCH ×2 (06:30→14:39)
[2018-05-15] MEDS: Acetaminophen 500 MG Tab PO SCH ×3 (06:30→23:15)
[2018-05-15] MEDS: buPROPion 150 MG Tab.ER PO SCH (08:47)
[2018-05-15] MEDS: Chlorthalidone 25 MG Tab PO SCH (08:47)
[2018-05-15] MEDS: Allopurinol 100 MG Tab PO SCH (08:48)
[2018-05-15] MEDS: Metoprolol Tartrate 100 MG Tab PO SCH ×2 (08:48→21:17)
[2018-05-15] MEDS: Docusate Sodium 100 MG Cap PO SCH (08:49)
[2018-05-15] MEDS: Naloxegol Oxalate 25 MG Tab PO SCH (08:49)
[2018-05-15] MEDS: Zinc (Zinc Gluconate) 50 MG Tab PO SCH (08:49)
[2018-05-15] MEDS: Multivitamins with Minerals/Iron/Folic Acid/Lycopene Tab PO SCH (08:50)
[2018-05-15] MEDS: INSULIN DETEMIR 100 UNIT/ML SUBCUT SCH (08:51)
[2018-05-15] MEDS: oxyCODONE ER 10 MG TAB.ER PO SCH ×2 (08:54→21:15)
[2018-05-15] MEDS: Nystatin Topical Powder 15 GM Bottle TOP SCH (10:00)
[2018-05-15] MEDS: oxyCODONE 5 MG Tab PO PRN (14:39)
[2018-05-15] MEDS: Aspirin 81 MG Tab.EC PO SCH (21:14)
[2018-05-15] MEDS: Simvastatin 20 MG Tab PO SCH (21:15)
[2018-05-15] MEDS: ROZEREM 8 MG PO SCH (21:15)
[2018-05-15] MEDS: Sertraline 100 MG Tab PO SCH (21:15)
[2018-05-16] MEDS: Acetaminophen 500 MG Tab PO SCH ×3 (06:31→23:13)
[2018-05-16] MEDS: Omeprazole 20 MG Cap.CR PO SCH ×2 (06:31→16:44)
[2018-05-16] MEDS: Furosemide 20 MG Tab PO SCH (06:31)
[2018-05-16] MEDS: Diclofenac Sodium 1% Gel 100 GM Tube TOP PRN (06:32)
[2018-05-16] MEDS: Zinc (Zinc Gluconate) 50 MG Tab PO SCH (08:10)
[2018-05-16] MEDS: Docusate Sodium 100 MG Cap PO SCH (08:10)
[2018-05-16] MEDS: Chlorthalidone 25 MG Tab PO SCH (08:11)
[2018-05-16] MEDS: Naloxegol Oxalate 25 MG Tab PO SCH (08:11)
[2018-05-16] MEDS: buPROPion 150 MG Tab.ER PO SCH (08:11)
[2018-05-16] MEDS: Allopurinol 100 MG Tab PO SCH (08:11)
[2018-05-16] MEDS: Multivitamins with Minerals/Iron/Folic Acid/Lycopene Tab PO SCH (08:11)
[2018-05-16] MEDS: INSULIN DETEMIR 100 UNIT/ML SUBCUT SCH (08:13)
[2018-05-16] MEDS: Metoprolol Tartrate 100 MG Tab PO SCH ×2 (08:15→20:48)
[2018-05-16] MEDS: oxyCODONE ER 10 MG TAB.ER PO SCH ×2 (08:22→20:46)
[2018-05-16] MEDS: Iron Polysaccharides Complex 150 MG Cap PO SCH (08:22)
[2018-05-16] MEDS: Nystatin Topical Powder 15 GM Bottle TOP SCH (11:32)
[2018-05-16] MEDS: Sertraline 100 MG Tab PO SCH (20:46)
[2018-05-16] MEDS: ROZEREM 8 MG PO SCH (20:46)
[2018-05-16] MEDS: Aspirin 81 MG Tab.EC PO SCH (20:46)
[2018-05-16] MEDS: Simvastatin 20 MG Tab PO SCH (20:47)
[2018-05-17] MEDS: Acetaminophen 500 MG Tab PO SCH ×3 (06:33→23:45)
[2018-05-17] MEDS: Furosemide 20 MG Tab PO SCH ×2 (06:33→15:10)
[2018-05-17] MEDS: Omeprazole 20 MG Cap.CR PO SCH ×2 (06:33→16:47)
[2018-05-17] MEDS: INSULIN DETEMIR 100 UNIT/ML SUBCUT SCH (08:24)
[2018-05-17] MEDS: Multivitamins with Minerals/Iron/Folic Acid/Lycopene Tab PO SCH (08:26)
[2018-05-17] MEDS: Docusate Sodium 100 MG Cap PO SCH (08:26)
[2018-05-17] MEDS: Metoprolol Tartrate 100 MG Tab PO SCH ×2 (08:26→21:09)
[2018-05-17] MEDS: Zinc (Zinc Gluconate) 50 MG Tab PO SCH (08:26)
[2018-05-17] MEDS: Allopurinol 100 MG Tab PO SCH (08:27)
[2018-05-17] MEDS: buPROPion 150 MG Tab.ER PO SCH (08:27)
[2018-05-17] MEDS: Naloxegol Oxalate 25 MG Tab PO SCH (08:27)
[2018-05-17] MEDS: Chlorthalidone 25 MG Tab PO SCH (08:28)
[2018-05-17] MEDS: oxyCODONE ER 10 MG TAB.ER PO SCH ×2 (08:28→21:03)
[2018-05-17] MEDS: Nystatin Topical Powder 15 GM Bottle TOP SCH (08:30)
[2018-05-17] MEDS: ROZEREM 8 MG PO SCH (21:02)
[2018-05-17] MEDS: Sertraline 100 MG Tab PO SCH (21:06)
[2018-05-17] MEDS: Simvastatin 20 MG Tab PO SCH (21:06)
[2018-05-17] MEDS: Aspirin 81 MG Tab.EC PO SCH (21:09)
[2018-05-18] MEDS: Omeprazole 20 MG Cap.CR PO SCH ×2 (05:57→16:20)
[2018-05-18] MEDS: Acetaminophen 500 MG Tab PO SCH ×3 (06:01→23:42)
[2018-05-18] MEDS: Furosemide 20 MG Tab PO SCH (06:02)
[2018-05-18] MEDS: Zinc (Zinc Gluconate) 50 MG Tab PO SCH (08:17)
[2018-05-18] MEDS: Docusate Sodium 100 MG Cap PO SCH (08:17)
[2018-05-18] MEDS: Iron Polysaccharides Complex 150 MG Cap PO SCH (08:17)
[2018-05-18] MEDS: Allopurinol 100 MG Tab PO SCH (08:18)
[2018-05-18] MEDS: Multivitamins with Minerals/Iron/Folic Acid/Lycopene Tab PO SCH (08:19)
[2018-05-18] MEDS: Metoprolol Tartrate 100 MG Tab PO SCH ×2 (08:19→20:14)
[2018-05-18] MEDS: buPROPion 150 MG Tab.ER PO SCH (08:20)
[2018-05-18] MEDS: Naloxegol Oxalate 25 MG Tab PO SCH (08:20)
[2018-05-18] MEDS: INSULIN DETEMIR 100 UNIT/ML SUBCUT SCH (08:21)
[2018-05-18] MEDS: Chlorthalidone 25 MG Tab PO SCH (08:21)
[2018-05-18] MEDS: Nystatin Topical Powder 15 GM Bottle TOP SCH (08:21)
[2018-05-18] MEDS: oxyCODONE ER 10 MG TAB.ER PO SCH ×2 (08:23→20:13)
[2018-05-18] MEDS: Ondansetron 4 MG Tab PO PRN (10:28)
[2018-05-18] MEDS: oxyCODONE 5 MG Tab PO PRN (18:11)
[2018-05-18] MEDS: Aspirin 81 MG Tab.EC PO SCH (20:13)
[2018-05-18] MEDS: Sertraline 100 MG Tab PO SCH (20:14)
[2018-05-18] MEDS: ROZEREM 8 MG PO SCH (20:14)
[2018-05-18] MEDS: Simvastatin 20 MG Tab PO SCH (20:15)
[2018-05-19] MEDS: Acetaminophen 500 MG Tab PO SCH ×3 (06:25→22:54)
[2018-05-19] MEDS: Furosemide 20 MG Tab PO SCH ×2 (06:26→15:15)
[2018-05-19] MEDS: Omeprazole 20 MG Cap.CR PO SCH ×2 (06:26→17:01)
[2018-05-19] MEDS: Metoprolol Tartrate 100 MG Tab PO SCH ×2 (08:56→20:29)
[2018-05-19] MEDS: Zinc (Zinc Gluconate) 50 MG Tab PO SCH (08:56)
[2018-05-19] MEDS: Docusate Sodium 100 MG Cap PO SCH (08:56)
[2018-05-19] MEDS: Multivitamins with Minerals/Iron/Folic Acid/Lycopene Tab PO SCH (08:56)
[2018-05-19] MEDS: buPROPion 150 MG Tab.ER PO SCH (08:57)
[2018-05-19] MEDS: Allopurinol 100 MG Tab PO SCH (08:57)
[2018-05-19] MEDS: Naloxegol Oxalate 25 MG Tab PO SCH (08:58)
[2018-05-19] MEDS: Chlorthalidone 25 MG Tab PO SCH (08:58)
[2018-05-19] MEDS: oxyCODONE ER 10 MG TAB.ER PO SCH ×2 (09:00→20:27)
[2018-05-19] MEDS: INSULIN DETEMIR 100 UNIT/ML SUBCUT SCH (09:01)
[2018-05-19] MEDS: Nystatin Topical Powder 15 GM Bottle TOP SCH (09:02)
[2018-05-19] MEDS: Aspirin 81 MG Tab.EC PO SCH (20:27)
[2018-05-19] MEDS: Sertraline 100 MG Tab PO SCH (20:28)
[2018-05-19] MEDS: ROZEREM 8 MG PO SCH (20:29)
[2018-05-19] MEDS: Simvastatin 20 MG Tab PO SCH (20:29)
[2018-05-20] MEDS: Omeprazole 20 MG Cap.CR PO SCH ×2 (06:03→17:43)
[2018-05-20] MEDS: Furosemide 20 MG Tab PO SCH (06:03)
[2018-05-20] MEDS: Acetaminophen 500 MG Tab PO SCH ×3 (06:04→22:45)
[2018-05-20] MEDS: Zinc (Zinc Gluconate) 50 MG Tab PO SCH (08:49)
[2018-05-20] MEDS: Docusate Sodium 100 MG Cap PO SCH (08:49)
[2018-05-20] MEDS: oxyCODONE ER 10 MG TAB.ER PO SCH ×2 (08:49→22:46)
[2018-05-20] MEDS: Multivitamins with Minerals/Iron/Folic Acid/Lycopene Tab PO SCH (08:49)
[2018-05-20] MEDS: Metoprolol Tartrate 100 MG Tab PO SCH ×2 (08:49→22:43)
[2018-05-20] MEDS: buPROPion 150 MG Tab.ER PO SCH (08:50)
[2018-05-20] MEDS: Allopurinol 100 MG Tab PO SCH (08:50)
[2018-05-20] MEDS: Chlorthalidone 25 MG Tab PO SCH (08:51)
[2018-05-20] MEDS: Naloxegol Oxalate 25 MG Tab PO SCH (08:51)
[2018-05-20] MEDS: INSULIN DETEMIR 100 UNIT/ML SUBCUT SCH (08:52)
[2018-05-20] MEDS: Iron Polysaccharides Complex 150 MG Cap PO SCH (09:01)
[2018-05-20] MEDS: Nystatin Topical Powder 15 GM Bottle TOP SCH (09:04)
[2018-05-20] MEDS: Aspirin 81 MG Tab.EC PO SCH (22:41)
[2018-05-20] MEDS: Simvastatin 20 MG Tab PO SCH (22:42)
[2018-05-20] MEDS: Sertraline 100 MG Tab PO SCH (22:42)
[2018-05-20] MEDS: ROZEREM 8 MG PO SCH (22:42)
[2018-05-21] MEDS: Acetaminophen 500 MG Tab PO SCH ×3 (06:05→22:17)
[2018-05-21] MEDS: Omeprazole 20 MG Cap.CR PO SCH ×2 (06:06→17:15)
[2018-05-21] MEDS: Furosemide 20 MG Tab PO SCH ×2 (06:06→15:08)
[2018-05-21] MEDS: Docusate Sodium 100 MG Cap PO SCH (08:34)
[2018-05-21] MEDS: Multivitamins with Minerals/Iron/Folic Acid/Lycopene Tab PO SCH (08:34)
[2018-05-21] MEDS: Zinc (Zinc Gluconate) 50 MG Tab PO SCH (08:34)
[2018-05-21] MEDS: oxyCODONE ER 10 MG TAB.ER PO SCH ×2 (08:35→22:16)
[2018-05-21] MEDS: Nystatin Topical Powder 15 GM Bottle TOP SCH (08:35)
[2018-05-21] MEDS: Chlorthalidone 25 MG Tab PO SCH (08:36)
[2018-05-21] MEDS: Naloxegol Oxalate 25 MG Tab PO SCH (08:36)
[2018-05-21] MEDS: Metoprolol Tartrate 100 MG Tab PO SCH ×2 (08:36→22:19)
[2018-05-21] MEDS: buPROPion 150 MG Tab.ER PO SCH (08:36)
[2018-05-21] MEDS: Allopurinol 100 MG Tab PO SCH (08:36)
[2018-05-21] MEDS: INSULIN DETEMIR 100 UNIT/ML SUBCUT SCH (08:37)
[2018-05-21] MEDS: Simethicone 80 MG Tab.Chew PO PRN (10:54)
[2018-05-21] MEDS: Ondansetron 4 MG Tab PO PRN (17:58)
[2018-05-21] MEDS: Aluminum Hydroxide/Magnesium Hydroxide Susp 30 ML Cup PO PRN (20:39)
[2018-05-21] MEDS: Aspirin 81 MG Tab.EC PO SCH (22:17)
[2018-05-21] MEDS: Simvastatin 20 MG Tab PO SCH (22:18)
[2018-05-21] MEDS: Sertraline 100 MG Tab PO SCH (22:18)
[2018-05-21] MEDS: ROZEREM 8 MG PO SCH (22:19)
[2018-05-22] MEDS: Acetaminophen 500 MG Tab PO SCH ×3 (06:15→23:25)
[2018-05-22] MEDS: Furosemide 20 MG Tab PO SCH ×2 (06:16→15:28)
[2018-05-22] MEDS: Omeprazole 20 MG Cap.CR PO SCH ×2 (06:17→16:47)
[2018-05-22] MEDS: oxyCODONE ER 10 MG TAB.ER PO SCH ×2 (08:14→21:33)
[2018-05-22] MEDS: Docusate Sodium 100 MG Cap PO SCH (08:14)
[2018-05-22] MEDS: Zinc (Zinc Gluconate) 50 MG Tab PO SCH (08:14)
[2018-05-22] MEDS: Multivitamins with Minerals/Iron/Folic Acid/Lycopene Tab PO SCH (08:14)
[2018-05-22] MEDS: Allopurinol 100 MG Tab PO SCH (08:15)
[2018-05-22] MEDS: buPROPion 150 MG Tab.ER PO SCH (08:15)
[2018-05-22] MEDS: Iron Polysaccharides Complex 150 MG Cap PO SCH (08:15)
[2018-05-22] MEDS: Naloxegol Oxalate 25 MG Tab PO SCH (08:16)
[2018-05-22] MEDS: Nystatin Topical Powder 15 GM Bottle TOP SCH (08:16)
[2018-05-22] MEDS: Chlorthalidone 25 MG Tab PO SCH (08:16)
[2018-05-22] MEDS: INSULIN DETEMIR 100 UNIT/ML SUBCUT SCH (08:16)
[2018-05-22] MEDS: Metoprolol Tartrate 100 MG Tab PO SCH ×2 (08:17→21:36)
[2018-05-22] MEDS: ROZEREM 8 MG PO SCH (21:33)
[2018-05-22] MEDS: Aspirin 81 MG Tab.EC PO SCH (21:33)
[2018-05-22] MEDS: Sertraline 100 MG Tab PO SCH (21:34)
[2018-05-22] MEDS: Simvastatin 20 MG Tab PO SCH (21:35)
[2018-05-23] MEDS: Acetaminophen 500 MG Tab PO SCH ×3 (06:00→23:30)
[2018-05-23] MEDS: Omeprazole 20 MG Cap.CR PO SCH ×2 (06:01→17:33)
[2018-05-23] MEDS: Furosemide 20 MG Tab PO SCH (06:01)
[2018-05-23] MEDS: Multivitamins with Minerals/Iron/Folic Acid/Lycopene Tab PO SCH (08:54)
[2018-05-23] MEDS: Docusate Sodium 100 MG Cap PO SCH (08:54)
[2018-05-23] MEDS: Nystatin Topical Powder 15 GM Bottle TOP PRN (08:55)
[2018-05-23] MEDS: Naloxegol Oxalate 25 MG Tab PO SCH (08:55)
[2018-05-23] MEDS: oxyCODONE ER 10 MG TAB.ER PO SCH ×2 (08:56→20:22)
[2018-05-23] MEDS: Allopurinol 100 MG Tab PO SCH (08:57)
[2018-05-23] MEDS: buPROPion 150 MG Tab.ER PO SCH (08:58)
[2018-05-23] MEDS: Chlorthalidone 25 MG Tab PO SCH (08:58)
[2018-05-23] MEDS: INSULIN DETEMIR 100 UNIT/ML SUBCUT SCH (09:00)
[2018-05-23] MEDS: Nystatin Topical Powder 15 GM Bottle TOP SCH (09:02)
[2018-05-23] MEDS: METOPROLOL 100 MG PO SCH ×2 (10:18→20:21)
[2018-05-23] MEDS: Zinc (Zinc Gluconate) 50 MG Tab PO SCH (10:19)
[2018-05-23] MEDS: Ondansetron 4 MG Tab PO PRN (19:40)
[2018-05-23] MEDS: Aspirin 81 MG Tab.EC PO SCH (20:20)
[2018-05-23] MEDS: ROZEREM 8 MG PO SCH (20:22)
[2018-05-23] MEDS: Sertraline 100 MG Tab PO SCH (20:22)
[2018-05-23] MEDS: Simvastatin 20 MG Tab PO SCH (20:22)
[2018-05-24] MEDS: Acetaminophen 500 MG Tab PO SCH ×3 (06:39→23:37)
[2018-05-24] MEDS: Furosemide 20 MG Tab PO SCH ×2 (06:40→14:50)
[2018-05-24] MEDS: Omeprazole 20 MG Cap.CR PO SCH ×2 (06:41→16:28)
[2018-05-24] MEDS: Naloxegol Oxalate 25 MG Tab PO SCH (08:36)
[2018-05-24] MEDS: Allopurinol 100 MG Tab PO SCH (08:36)
[2018-05-24] MEDS: Chlorthalidone 25 MG Tab PO SCH (08:36)
[2018-05-24] MEDS: buPROPion 150 MG Tab.ER PO SCH (08:36)
[2018-05-24] MEDS: Docusate Sodium 100 MG Cap PO SCH (08:37)
[2018-05-24] MEDS: Multivitamins with Minerals/Iron/Folic Acid/Lycopene Tab PO SCH (08:37)
[2018-05-24] MEDS: Zinc (Zinc Gluconate) 50 MG Tab PO SCH (08:37)
[2018-05-24] MEDS: Nystatin Topical Powder 15 GM Bottle TOP SCH (08:38)
[2018-05-24] MEDS: oxyCODONE ER 10 MG TAB.ER PO SCH ×2 (08:38→20:09)
[2018-05-24] MEDS: INSULIN DETEMIR 100 UNIT/ML SUBCUT SCH (08:39)
[2018-05-24] MEDS: Iron Polysaccharides Complex 150 MG Cap PO SCH (08:43)
[2018-05-24] MEDS: METOPROLOL 100 MG PO SCH ×2 (08:43→20:10)
[2018-05-24] MEDS: Ondansetron 4 MG Tab PO PRN (12:40)
[2018-05-24] MEDS: Aspirin 81 MG Tab.EC PO SCH (20:09)
[2018-05-24] MEDS: Simvastatin 20 MG Tab PO SCH (20:10)
[2018-05-24] MEDS: ROZEREM 8 MG PO SCH (20:10)
[2018-05-24] MEDS: Sertraline 100 MG Tab PO SCH (20:11)
[2018-05-25] MEDS: oxyCODONE 5 MG Tab PO PRN (03:16)
[2018-05-25] MEDS: Acetaminophen 500 MG Tab PO SCH ×2 (06:25→15:29)
[2018-05-25] MEDS: Omeprazole 20 MG Cap.CR PO SCH ×2 (06:26→16:37)
[2018-05-25] MEDS: Furosemide 20 MG Tab PO SCH (06:26)
[2018-05-25] MEDS: Docusate Sodium 100 MG Cap PO SCH (08:45)
[2018-05-25] MEDS: oxyCODONE ER 10 MG TAB.ER PO SCH ×2 (08:45→20:21)
[2018-05-25] MEDS: INSULIN DETEMIR 100 UNIT/ML SUBCUT SCH (08:46)
[2018-05-25] MEDS: Zinc (Zinc Gluconate) 50 MG Tab PO SCH (08:46)
[2018-05-25] MEDS: Multivitamins with Minerals/Iron/Folic Acid/Lycopene Tab PO SCH (08:46)
[2018-05-25] MEDS: Naloxegol Oxalate 25 MG Tab PO SCH (08:47)
[2018-05-25] MEDS: buPROPion 150 MG Tab.ER PO SCH (08:47)
[2018-05-25] MEDS: Chlorthalidone 25 MG Tab PO SCH (08:48)
[2018-05-25] MEDS: Allopurinol 100 MG Tab PO SCH (08:48)
[2018-05-25] MEDS: METOPROLOL 100 MG PO SCH ×2 (08:49→20:24)
[2018-05-25] MEDS: Nystatin Topical Powder 15 GM Bottle TOP SCH (08:50)
[2018-05-25] MEDS: Ondansetron 4 MG Tab PO PRN (13:15)
[2018-05-25] MEDS: ROZEREM 8 MG PO SCH (20:21)
[2018-05-25] MEDS: Aspirin 81 MG Tab.EC PO SCH (20:21)
[2018-05-25] MEDS: Simvastatin 20 MG Tab PO SCH (20:22)
[2018-05-25] MEDS: Sertraline 100 MG Tab PO SCH (20:23)
[2018-05-26] MEDS: Acetaminophen 500 MG Tab PO SCH ×3 (00:13→14:53)
[2018-05-26] MEDS: Furosemide 20 MG Tab PO SCH ×2 (06:15→14:54)
[2018-05-26] MEDS: Omeprazole 20 MG Cap.CR PO SCH ×2 (06:16→17:11)
[2018-05-26] MEDS: oxyCODONE ER 10 MG TAB.ER PO SCH ×2 (08:16→20:19)
[2018-05-26] MEDS: Zinc (Zinc Gluconate) 50 MG Tab PO SCH (08:16)
[2018-05-26] MEDS: Multivitamins with Minerals/Iron/Folic Acid/Lycopene Tab PO SCH (08:17)
[2018-05-26] MEDS: Iron Polysaccharides Complex 150 MG Cap PO SCH (08:17)
[2018-05-26] MEDS: Docusate Sodium 100 MG Cap PO SCH (08:17)
[2018-05-26] MEDS: buPROPion 150 MG Tab.ER PO SCH (08:19)
[2018-05-26] MEDS: Allopurinol 100 MG Tab PO SCH (08:19)
[2018-05-26] MEDS: Naloxegol Oxalate 25 MG Tab PO SCH (08:19)
[2018-05-26] MEDS: Chlorthalidone 25 MG Tab PO SCH (08:19)
[2018-05-26] MEDS: INSULIN DETEMIR 100 UNIT/ML SUBCUT SCH (08:20)
[2018-05-26] MEDS: METOPROLOL 100 MG PO SCH ×2 (08:20→20:18)
[2018-05-26] MEDS: Nystatin Topical Powder 15 GM Bottle TOP SCH (08:20)
[2018-05-26] MEDS: Ondansetron 4 MG Tab PO PRN (12:49)
[2018-05-26] MEDS: Aspirin 81 MG Tab.EC PO SCH (20:19)
[2018-05-26] MEDS: Sertraline 100 MG Tab PO SCH (20:20)
[2018-05-26] MEDS: ROZEREM 8 MG PO SCH (20:20)
[2018-05-26] MEDS: Simvastatin 20 MG Tab PO SCH (20:21)
[2018-05-26] MEDS: Aluminum Hydroxide/Magnesium Hydroxide Susp 30 ML Cup PO PRN (20:21)
[2018-05-27] MEDS: Acetaminophen 500 MG Tab PO SCH ×3 (00:13→14:51)
[2018-05-27] MEDS: Omeprazole 20 MG Cap.CR PO SCH ×2 (06:40→16:43)
[2018-05-27] MEDS: Furosemide 20 MG Tab PO SCH (06:40)
[2018-05-27] MEDS: Docusate Sodium 100 MG Cap PO SCH (08:13)
[2018-05-27] MEDS: Multivitamins with Minerals/Iron/Folic Acid/Lycopene Tab PO SCH (08:13)
[2018-05-27] MEDS: Zinc (Zinc Gluconate) 50 MG Tab PO SCH (08:13)
[2018-05-27] MEDS: METOPROLOL 100 MG PO SCH ×2 (08:13→20:56)
[2018-05-27] MEDS: INSULIN DETEMIR 100 UNIT/ML SUBCUT SCH (08:14)
[2018-05-27] MEDS: Nystatin Topical Powder 15 GM Bottle TOP SCH (08:14)
[2018-05-27] MEDS: Chlorthalidone 25 MG Tab PO SCH (08:15)
[2018-05-27] MEDS: Naloxegol Oxalate 25 MG Tab PO SCH (08:15)
[2018-05-27] MEDS: buPROPion 150 MG Tab.ER PO SCH (08:15)
[2018-05-27] MEDS: Allopurinol 100 MG Tab PO SCH (08:15)
[2018-05-27] MEDS: oxyCODONE ER 10 MG TAB.ER PO SCH ×2 (09:34→20:58)
[2018-05-27] MEDS: Aspirin 81 MG Tab.EC PO SCH (20:53)
[2018-05-27] MEDS: Simvastatin 20 MG Tab PO SCH (20:54)
[2018-05-27] MEDS: Sertraline 100 MG Tab PO SCH (20:55)
[2018-05-27] MEDS: ROZEREM 8 MG PO SCH (20:56)
[2018-05-28] MEDS: Acetaminophen 500 MG Tab PO SCH ×4 (01:09→22:30)
[2018-05-28] MEDS: Furosemide 20 MG Tab PO SCH ×2 (06:02→14:43)
[2018-05-28] MEDS: Omeprazole 20 MG Cap.CR PO SCH ×2 (06:03→16:29)
[2018-05-28] MEDS: oxyCODONE ER 10 MG TAB.ER PO SCH ×2 (08:16→20:46)
[2018-05-28] MEDS: INSULIN DETEMIR 100 UNIT/ML SUBCUT SCH (08:17)
[2018-05-28] MEDS: Naloxegol Oxalate 25 MG Tab PO SCH (08:18)
[2018-05-28] MEDS: Chlorthalidone 25 MG Tab PO SCH (08:18)
[2018-05-28] MEDS: buPROPion 150 MG Tab.ER PO SCH (08:18)
[2018-05-28] MEDS: Allopurinol 100 MG Tab PO SCH (08:19)
[2018-05-28] MEDS: Nystatin Topical Powder 15 GM Bottle TOP SCH (08:20)
[2018-05-28] MEDS: Multivitamins with Minerals/Iron/Folic Acid/Lycopene Tab PO SCH (08:21)
[2018-05-28] MEDS: Zinc (Zinc Gluconate) 50 MG Tab PO SCH (08:21)
[2018-05-28] MEDS: Docusate Sodium 100 MG Cap PO SCH (08:21)
[2018-05-28] MEDS: METOPROLOL 100 MG PO SCH ×2 (08:26→20:48)
[2018-05-28] MEDS: Iron Polysaccharides Complex 150 MG Cap PO SCH (08:28)
[2018-05-28] MEDS: Ondansetron 4 MG Tab PO PRN (09:19)
[2018-05-28] MEDS: Aluminum Hydroxide/Magnesium Hydroxide Susp 30 ML Cup PO PRN (14:43)
[2018-05-28] MEDS: ROZEREM 8 MG PO SCH (20:46)
[2018-05-28] MEDS: Sertraline 100 MG Tab PO SCH (20:46)
[2018-05-28] MEDS: Simvastatin 20 MG Tab PO SCH (20:47)
[2018-05-28] MEDS: Aspirin 81 MG Tab.EC PO SCH (20:51)
[2018-05-29] MEDS: Acetaminophen 500 MG Tab PO SCH ×3 (06:47→23:02)
[2018-05-29] MEDS: Furosemide 20 MG Tab PO SCH ×2 (06:48→14:40)
[2018-05-29] MEDS: Omeprazole 20 MG Cap.CR PO SCH ×2 (06:49→16:32)
[2018-05-29] MEDS: oxyCODONE ER 10 MG TAB.ER PO SCH ×2 (08:49→20:02)
[2018-05-29] MEDS: Allopurinol 100 MG Tab PO SCH (08:50)
[2018-05-29] MEDS: Naloxegol Oxalate 25 MG Tab PO SCH (08:50)
[2018-05-29] MEDS: Nystatin Topical Powder 15 GM Bottle TOP SCH (08:50)
[2018-05-29] MEDS: buPROPion 150 MG Tab.ER PO SCH (08:50)
[2018-05-29] MEDS: Multivitamins with Minerals/Iron/Folic Acid/Lycopene Tab PO SCH (08:51)
[2018-05-29] MEDS: INSULIN DETEMIR 100 UNIT/ML SUBCUT SCH (08:51)
[2018-05-29] MEDS: Chlorthalidone 25 MG Tab PO SCH (08:51)
[2018-05-29] MEDS: Zinc (Zinc Gluconate) 50 MG Tab PO SCH (08:51)
[2018-05-29] MEDS: Docusate Sodium 100 MG Cap PO SCH (08:51)
[2018-05-29] MEDS: METOPROLOL 100 MG PO SCH ×2 (08:52→20:04)
[2018-05-29] MEDS: Polyethylene Glycol 3350 Powder 17 GM Packet PO PRN (19:10)
[2018-05-29] MEDS: Ondansetron 4 MG Tab PO PRN (19:10)
[2018-05-29] MEDS: Aspirin 81 MG Tab.EC PO SCH (20:02)
[2018-05-29] MEDS: Simvastatin 20 MG Tab PO SCH (20:03)
[2018-05-29] MEDS: Sertraline 100 MG Tab PO SCH (20:05)
[2018-05-29] MEDS: ROZEREM 8 MG PO SCH (20:05)
[2018-05-30] MEDS: Omeprazole 20 MG Cap.CR PO SCH ×2 (05:54→17:10)
[2018-05-30] MEDS: Acetaminophen 500 MG Tab PO SCH ×3 (07:06→23:40)
[2018-05-30] MEDS: Furosemide 20 MG Tab PO SCH (07:08)
[2018-05-30] MEDS: oxyCODONE ER 10 MG TAB.ER PO SCH ×2 (08:30→20:27)
[2018-05-30] MEDS: Docusate Sodium 100 MG Cap PO SCH (08:30)
[2018-05-30] MEDS: Iron Polysaccharides Complex 150 MG Cap PO SCH (08:30)
[2018-05-30] MEDS: Multivitamins with Minerals/Iron/Folic Acid/Lycopene Tab PO SCH (08:30)
[2018-05-30] MEDS: Zinc (Zinc Gluconate) 50 MG Tab PO SCH (08:30)
[2018-05-30] MEDS: Chlorthalidone 25 MG Tab PO SCH (08:31)
[2018-05-30] MEDS: METOPROLOL 100 MG PO SCH ×2 (08:31→20:28)
[2018-05-30] MEDS: Naloxegol Oxalate 25 MG Tab PO SCH (08:34)
[2018-05-30] MEDS: buPROPion 150 MG Tab.ER PO SCH (08:34)
[2018-05-30] MEDS: INSULIN DETEMIR 100 UNIT/ML SUBCUT SCH (08:35)
[2018-05-30] MEDS: Allopurinol 100 MG Tab PO SCH (08:35)
[2018-05-30] MEDS: Nystatin Topical Powder 15 GM Bottle TOP SCH (08:39)
[2018-05-30] MEDS: Prochlorperazine 10 MG Tab PO PRN (12:33)
[2018-05-30] MEDS: Aspirin 81 MG Tab.EC PO SCH (20:27)
[2018-05-30] MEDS: ROZEREM 8 MG PO SCH (20:28)
[2018-05-30] MEDS: Simvastatin 20 MG Tab PO SCH (20:28)
[2018-05-30] MEDS: Sertraline 100 MG Tab PO SCH (20:28)
[2018-05-31] MEDS: Acetaminophen 500 MG Tab PO SCH ×3 (06:41→22:28)
[2018-05-31] MEDS: Omeprazole 20 MG Cap.CR PO SCH ×2 (06:42→17:41)
[2018-05-31] MEDS: Furosemide 20 MG Tab PO SCH ×2 (06:42→14:17)
[2018-05-31] MEDS: Docusate Sodium 100 MG Cap PO SCH (08:08)
[2018-05-31] MEDS: Zinc (Zinc Gluconate) 50 MG Tab PO SCH (08:09)
[2018-05-31] MEDS: Multivitamins with Minerals/Iron/Folic Acid/Lycopene Tab PO SCH (08:09)
[2018-05-31] MEDS: INSULIN DETEMIR 100 UNIT/ML SUBCUT SCH (08:11)
[2018-05-31] MEDS: buPROPion 150 MG Tab.ER PO SCH (08:12)
[2018-05-31] MEDS: Allopurinol 100 MG Tab PO SCH (08:12)
[2018-05-31] MEDS: Naloxegol Oxalate 25 MG Tab PO SCH (08:12)
[2018-05-31] MEDS: Chlorthalidone 25 MG Tab PO SCH (08:12)
[2018-05-31] MEDS: Nystatin Topical Powder 15 GM Bottle TOP SCH (08:13)
[2018-05-31] MEDS: METOPROLOL 100 MG PO SCH ×2 (08:17→20:08)
[2018-05-31] MEDS: oxyCODONE ER 10 MG TAB.ER PO SCH (08:22)
[2018-05-31 09:56] LABS: ANION GAP 16.4 mmol/L (5-15)
--- NOTE | 2018-05-31 12:26 | PCM.PN ---
- General Info Date of Service: 05/31/18 Functional Status: Reports: Pain Controlled, Tolerating Diet, New Symptoms ( Complaining of GI upset after she eats, nauseous) - Review of Systems General: Reports: No Symptoms HEENT: Reports: No Symptoms Pulmonary: Reports: No Symptoms Cardiovascular: Reports: No Symptoms Gastrointestinal: Reports: Abdominal Pain, Nausea. Denies: Constipation, Decreased Appetite, Diarrhea, Difficulty Swallowing, Flatus, Melena, Vomiting Genitourinary: Reports: No Symptoms Musculoskeletal: Reports: Other (Left shoulder pain upon physical therapy) Neurological: Reports: Pre-Existing Deficit Psychiatric: Reports: No Symptoms - Patient Data Vitals - Most Recent: Last Vital Signs Temp 98.1 F 05/31/18 06:59 Pulse 59 L 05/31/18 08:18 Resp 18 05/31/18 06:59 BP 116/57 L 05/31/18 08:18 Pulse Ox 96 05/31/18 06:59 Weight - Most Recent: 186 lb 7 oz I&O - Last 24 Hours: Intake & Output 05/30/18 05/31/18 05/31/18 22:59 06:59 14:59 Intake Total 360 0 Balance 360 0 Lab Results Last 24 Hours: Laboratory Results - last 24 hr 05/31/18 05/31/18 05/31/18 Range/Units 06:40 09:00 09:00 WBC 5.28 (5.00-10.00) 10^3/uL RBC 3.48 L (3.80-5.50) 10^6/uL Hgb 11.6 L (12.0-16.0) g/dL Hct 35.5 L (37.0-47.0) % MCV 102.0 H (82.0-92.0) fL MCH 33.3 H (27.0-31.0) pg MCHC 32.7 (32.0-36.0) g/dL RDW 13.4 (11.5-14.5) % Plt Count 95 L (150-400) 10^3/uL MPV 11.9 H (7.4-10.4) fL Sodium 140 (136-145) mmol/L Potassium 4.4 (3.3-5.3) mmol/L Chloride 100 (98-115) mmol/L Carbon Dioxide 28.0 (21.0-32.0) mmol/L Anion Gap 16.4 H (5-15) mmol/L BUN 34 H (6-25) mg/dL Creatinine 1.37 H (0.51-1.17) mg/dL Est Cr Clr Drug Dosing 28.45 mL/min Estimated GFR (MDRD) 37 mL/min Glucose 282 H (75 - 99) mg/dL POC Glucose 156 H (74-106) mg/dl Calcium 9.6 (8.7-10.3) mg/dL Total Bilirubin 0.4 (0.2-1.0) mg/dL AST 24 (15-37) U/L ALT 27 (12-78) U/L Alkaline Phosphatase 96 (46-116) IU/L Total Protein 7.0 (6.4-8.2) g/dL Albumin 2.93 L (3.00-4.80) g/dL Med Orders - Current: Current Medications Acetaminophen (Tylenol Extra Strength) 1,000 mg PO Q8H [facility] Last Admin: 05/31/18 06:41 Dose: 1,000 mg Al Hydroxide/Mg Hydroxide (Mag-Al Susp) 30 ml PO Q6H PRN PRN Reason: Heartburn Last Admin: 05/28/18 14:43 Dose: 30 ml Aspirin (Halfprin) 81 mg PO BEDTIME [facility] Last Admin: 05/30/18 20:27 Dose: 81 mg Bisacodyl (Dulcolax) 10 mg RECTAL DAILY PRN PRN Reason: Constipation Last Admin: 01/08/18 11:45 Dose: 10 mg Docusate Sodium (Colace) 100 mg PO DAILY [facility] Last Admin: 05/31/18 08:08 Dose: 100 mg Multivitamins/Minerals (Centrum) 1 tab PO DAILY [facility] Last Admin: 05/31/18 08:09 Dose: 1 tab Allopurinol 100 Mg (Tab) 1 each PO DAILY [facility] Last Admin: 05/31/18 08:12 Dose: 1 each Simvastatin 20 Mg (Tab) 1 each PO BEDTIME [facility] Last Admin: 05/30/18 20:28 Dose: 1 each Prochlorperazine 10 (Mg Tab) 1 each PO QID PRN PRN Reason: Nausea Last Admin: 05/30/18 12:33 Dose: 1 each Furosemide 20 Mg Tab 1 each PO SuTuThSa@1500 [facility] Last Admin: 05/29/18 14:40 Dose: 1 each Furosemide 20 Mg Tab 1 each PO DAILY@0700 [facility] Last Admin: 05/31/18 06:42 Dose: 1 each Sertraline 100 Mg (Tab) 1.5 each PO BEDTIME [facility] Last Admin: 05/30/18 20:28 Dose: 1.5 each Omeprazole 20 Mg Cap (.Cr) 1 each PO BID@0600,1700 [facility] Last Admin: 05/31/18 06:42 Dose: 1 each Ondansetron 4 Mg Tab 2 each PO TID PRN PRN Reason: nausea or vomitting Last Admin: 05/29/18 19:10 Dose: 2 each Naloxegol Oxalate 25 (Mg Tab) 1 each PO DAILY [facility] Last Admin: 05/31/18 08:12 Dose: 1 each Bupropion 150 Mg Tab (.Er) 1 each PO DAILY [facility] Last Admin: 05/31/18 08:12 Dose: 1 each Oxycodone Er 10 Mg (Tab.Er) 1 each PO Q12H [facility] Last Admin: 05/31/18 08:22 Dose: 1 each Oxycodone 5 Mg Tab 5 each PO Q6H PRN PRN Reason: Pain Last Admin: 05/25/18 03:16 Dose: 5 each Diclofenac Sodium 1% (Gel 100 Gm Tube) 1 each TOP QID PRN PRN Reason: Pain Last Admin: 05/16/18 06:32 Dose: 1 each Rozerem 8mg Tablet 1 each PO BEDTIME [facility] Last Admin: 05/30/18 20:28 Dose: 1 each Alprazolam 0.25 Mg (Tab) 1 each PO Q8H PRN PRN Reason: Anxiety Chlorthalidone 25 Mg (Tab) 0.5 each PO DAILY [facility] Last Admin: 05/31/18 08:12 Dose: 0.5 each Nystatin Topical (Powder 15 Gm Bottle) 0 each TOP DAILY [facility] Last Admin: 05/31/18 08:13 Dose: 1 each Nystatin Topical (Powder 15 Gm Bottle) 0 each TOP TID PRN PRN Reason: Rash Last Admin: 05/23/18 08:55 Dose: 1 each Losartan 100mg Tab 1 each PO BEDTIME KIERA Last Admin: 05/30/18 20:28 Dose: 1 each Insulin Detemir 100 (Units/Ml 3ml) 32 each SUBCUT DAILY [facility] Last Admin: 05/31/18 08:11 Dose: 32 each Amlodipine 5mg 1 each PO BEDTIME [facility] Last Admin: 05/30/18 20:27 Dose: 1 each Metoprolol 100mg Tab 0.25 each PO BID [facility] Last Admin: 05/31/18 08:17 Dose: 0.25 each Polyethylene Glycol (Miralax) 17 gm PO DAILY PRN PRN Reason: Constipation Last Admin: 05/29/18 19:10 Dose: 17 gm Polysaccharide Iron Complex (Ferrex 150) 150 mg PO Q48H [facility] Last Admin: 05/30/18 08:30 Dose: 150 mg Senna/Docusate Sodium (Senna Plus) 1 tab PO BEDTIME [facility] Last Admin: 05/30/18 20:27 Dose: 1 tab Simethicone (Simethicone) 80 mg PO Q6H PRN PRN Reason: Heartburn Last Admin: 05/21/18 10:54 Dose: 80 mg Zinc Gluconate (Zinc) 50 mg PO DAILY [facility] Last Admin: 05/31/18 08:09 Dose: 50 mg Discontinued Medications Acetaminophen (Tylenol Extra Strength) 1,000 mg PO Q8H [facility] Last Admin: 10/23/17 02:00 Dose: 1,000 mg Acetaminophen (Tylenol Extra Strength) 1,000 mg PO Q8H [facility] Last Admin: 11/22/17 15:12 Dose: 1,000 mg Acetaminophen (Tylenol) Confirm Administered Dose 975 mg .ROUTE .STK-MED ONE Stop: 11/08/17 07:36 Last Admin: 11/08/17 08:28 Dose: 975 mg Hydrocodone Bitart/Acetaminophen (Howes 325-5 Mg) 1 - 2 tab PO Q4H PRN PRN Reason: Moderate Pain Last Admin: 10/24/17 19:26 Dose: 1 tab Al Hydroxide/Mg Hydroxide (Mag-Al Susp) Confirm Administered Dose 30 ml .ROUTE .STK-MED ONE Stop: 01/09/18 21:49 Last Admin: 01/09/18 22:00 Dose: 30 ml Al Hydroxide/Mg Hydroxide (Mag-Al Susp) 30 ml PO Q6H PRN PRN Reason: Heartburn Last Admin: 01/09/18 22:00 Dose: 30 ml Allopurinol (Zyloprim) 100 mg PO DAILY [facility] Last Admin: 02/15/18 08:51 Dose: 100 mg Alprazolam (Xanax) 0.25 mg PO Q8H PRN PRN Reason: Anxiety Last Admin: 02/19/18 02:06 Dose: 0.25 mg Amlodipine Besylate (Norvasc) 5 mg PO DAILY [facility] Last Admin: 02/16/18 08:24 Dose: 5 mg Bacitracin (Bacitracin Oint) 1 gm TOP DAILY PRN PRN Reason: Rash Bisacodyl (Dulcolax) 10 mg RECTAL ONETIME ONE Stop: 12/21/17 04:02 Last Admin: 12/21/17 04:17 Dose: Not Given Bisacodyl (Dulcolax) Confirm Administered Dose 10 mg .ROUTE .STK-MED ONE Stop: 01/08/18 11:37 Last Admin: 01/08/18 16:15 Dose: Not Given Bupropion HCl (Wellbutrin Xl) 150 mg PO DAILY [facility] Last Admin: 02/16/18 08:22 Dose: 150 mg Calcium Carbonate/Glycine (Tums) 500 mg PO TID PRN PRN Reason: Indigestion Ciprofloxacin (Ciprofloxacin Hcl) 500 mg PO BID [facility] Stop: 12/24/17 21:01 Last Admin: 12/24/17 21:04 Dose: 500 mg Al Hydroxide/Mg Hydroxide 40 ml/ Diphenhydramine HCl 12.5 mg/ Lidocaine HCl 40 ml 0 ml PO TID PRN PRN Reason: mouth sores/burning Last Admin: 10/28/17 08:11 Dose: 10 ml Cranberry (Azo Cranberry) 1 each PO BEDTIME [facility] Last Admin: 11/07/17 21:46 Dose: Not Given Diclofenac Sodium (Voltaren 1% Gel) 1 gm TOP QID [facility] Last Admin: 01/26/18 08:10 Dose: Not Given Diclofenac Sodium (Voltaren 1% Gel) 1 gm TOP QID PRN PRN Reason: Pain Last Admin: 02/08/18 20:12 Dose: 1 applic Furosemide (Lasix) 20 mg PO DAILY [facility] Last Admin: 12/13/17 09:25 Dose: 20 mg Furosemide (Lasix) 20 mg PO SUTUTHSA@1700 [facility] Last Admin: 12/12/17 16:01 Dose: 20 mg Furosemide (Lasix) 20 mg PO SuTuThSa@1500 [facility] Last Admin: 02/13/18 14:52 Dose: 20 mg Furosemide (Lasix) 20 mg PO DAILY@0700 [facility] Last Admin: 02/15/18 06:44 Dose: 20 mg Furosemide (Lasix) Confirm Administered Dose 20 mg .ROUTE .STK-MED ONE Stop: 04/03/18 06:35 Last Admin: 04/03/18 09:08 Dose: Not Given Heparin Sodium (Porcine) (Heparin Lock Flush 100 Units/Ml) 500 units FLUSH ASDIRECTED PRN PRN Reason: Other Cefepime HCl 1 gm/ Sodium (Chloride) 50 mls @ 100 mls/hr IV Q8H [facility] Last Admin: 11/01/17 18:52 Dose: Not Given Cefepime HCl 1 gm/ Sodium (Chloride) 50 mls @ 100 mls/hr IV Q24H [facility] Last Admin: 11/07/17 20:32 Dose: 100 mls/hr Sodium Chloride (Normal Saline) Confirm Administered Dose 50 mls @ as directed .ROUTE .[facility] ONE Stop: 11/02/17 22:10 Last Admin: 11/02/17 23:15 Dose: 100 mls/hr Sodium Chloride (Normal Saline) Confirm Administered Dose 50 mls @ as directed .ROUTE .[facility] ONE Stop: 11/03/17 21:46 Last Admin: 11/03/17 21:56 Dose: Not Given Sodium Chloride (Normal Saline) 50 mls @ 50 mls/hr IV ASDIRECTED [facility] Albumin Human (Flexbumin 25%) 100 mls @ 50 mls/hr IV ONETIME ONE Stop: 11/22/17 13:59 Last Admin: 11/22/17 13:07 Dose: 50 mls/hr Sodium Chloride (Normal Saline) 250 mls @ 125 mls/hr IV ASDIRECTED [facility] Stop: 11/22/17 21:00 Last Admin: 11/22/17 15:40 Dose: 125 mls/hr Ciprofloxacin/Dextrose (Cipro In D5w 400 Mg/200 Ml) 200 mls @ 200 mls/hr IV Q12H [facility] Last Admin: 11/26/17 06:13 Dose: 200 mls/hr Sodium Chloride (Normal Saline) Confirm Administered Dose 100 mls @ as directed .ROUTE .[facility] ONE Stop: 11/22/17 20:04 Last Admin: 11/22/17 20:05 Dose: 100 mls/hr Sodium Chloride (Normal Saline) 100 mls @ 200 mls/hr IV ASDIRECTED KIERA Sodium Chloride (Normal Saline) 100 mls @ 20 mls/hr IV DAILY@1900 [facility] Last Admin: 11/25/17 18:08 Dose: 20 mls/hr Insulin Aspart (Novolog) 0 unit SUBCUT WITHMEALSANDBED [facility]; Protocol Stop: 10/31/17 00:00 Last Admin: 10/30/17 21:02 Dose: 5 units Insulin Aspart (Novolog) 2 unit SUBCUT ONETIME ONE Stop: 10/31/17 20:59 Last Admin: 10/31/17 21:07 Dose: 2 units Insulin Aspart (Novolog) 10 unit SUBCUT ONETIME ONE Stop: 11/12/17 17:44 Last Admin: 11/12/17 18:06 Dose: 10 units Insulin Aspart (Novolog) 0 unit SUBCUT TIDMEALS [facility]; Protocol Last Admin: 12/21/17 17:16 Dose: Not Given Insulin Detemir (Levemir) 44 unit SUBCUT DAILY [facility] Last Admin: 10/30/17 10:10 Dose: Not Given Insulin Detemir (Levemir) 40 unit SUBCUT DAILY [facility] Last Admin: 11/14/17 08:22 Dose: 40 units Insulin Detemir (Levemir) 44 unit SUBCUT DAILY [facility] Last Admin: 11/29/17 11:32 Dose: Not Given Insulin Detemir (Levemir) 34 unit SUBCUT DAILY [facility] Last Admin: 12/02/17 10:11 Dose: Not Given Insulin Detemir (Levemir) 30 unit SUBCUT DAILY [facility] Last Admin: 12/20/17 08:02 Dose: 30 units Insulin Detemir (Levemir) 40 unit SUBCUT DAILY [facility] Last Admin: 02/09/18 08:17 Dose: 40 units Insulin Detemir (Levemir) 10 unit SUBCUT ONETIME ONE Stop: 12/20/17 13:01 Last Admin: 12/20/17 14:38 Dose: 10 units Insulin Detemir (Levemir) 42 unit SUBCUT DAILY [facility] Last Admin: 02/16/18 08:24 Dose: 42 unit Lidocaine/Epinephrine (Xylocaine 1% With Epinephrine 1:100,000) 3 ml INJECT ONETIME ONE Stop: 11/05/17 09:01 Last Admin: 11/05/17 09:00 Dose: 3 ml Loperamide HCl (Imodium) 2 mg PO ASDIRECTED PRN PRN Reason: Diarrhea Last Admin: 11/30/17 05:53 Dose: 2 mg Lorazepam (Ativan) 0.25 mg PO Q8H PRN PRN Reason: Anxiety Last Admin: 12/13/17 18:03 Dose: 0.25 mg Lorazepam (Ativan) 0.25 mg PO Q8H PRN PRN Reason: Anxiety Losartan Potassium (Cozaar) 25 mg PO DAILY [facility] Last Admin: 11/27/17 09:05 Dose: 25 mg Losartan Potassium (Cozaar) 50 mg PO DAILY [facility] Last Admin: 12/25/17 08:57 Dose: 50 mg Losartan Potassium (Cozaar) 75 mg PO DAILY [facility] Last Admin: 01/17/18 08:26 Dose: 75 mg Losartan Potassium (Cozaar) 100 mg PO DAILY [facility] Last Admin: 02/16/18 08:24 Dose: 100 mg Magnesium Hydroxide (Milk Of Magnesia) 30 ml PO DAILY PRN PRN Reason: Constipation Last Admin: 10/26/17 09:10 Dose: 30 ml Melatonin (Melatonin) 6 mg PO BEDTIME [facility] Metoprolol Tartrate (Lopressor) 50 mg PO BID [facility] Last Admin: 02/15/18 08:51 Dose: 50 mg Multivitamins/Minerals (Centrum) 1 tab PO DAILY [facility] Last Admin: 12/20/17 08:03 Dose: 1 tab Multivitamins/Minerals (Centrum) 1 tab PO DAILY@1200 [facility] Last Admin: 12/27/17 11:36 Dose: 1 tab Mupirocin (Bactroban Crm) 1 gm TOP TID [facility] Last Admin: 10/29/17 11:29 Dose: Not Given Mupirocin (Bactroban Oint) 0 gm TOP DAILY [facility] Last Admin: 12/06/17 10:12 Dose: 1 applic Naloxegol (Movantik) 25 mg PO DAILY [facility] Last Admin: 02/16/18 08:22 Dose: 25 mg Insulin Degludec ( (Tresiba) 44units) 44 units SUBCUT DAILY [facility] Nystatin (Nystop) 0 gm TOP BID [facility] Last Admin: 10/25/17 08:58 Dose: 1 applic Nystatin (Nystop) 0 gm TOP TID [facility] Last Admin: 10/26/17 11:15 Dose: Not Given Nystatin (Nystatin Ointment) 0 gm TOP TID [facility] Last Admin: 11/04/17 15:49 Dose: Not Given Nystatin (Nystatin Ointment) 1 gm TOP DAILY PRN PRN Reason: Rash Last Admin: 12/26/17 08:19 Dose: 1 applic Nystatin (Nystatin Ointment) 1 gm TOP BID [facility] Last Admin: 01/01/18 09:12 Dose: Not Given Nystatin (Nystatin Ointment) 1 gm TOP BID PRN PRN Reason: Rash Nystatin (Nystatin Ointment) 0 gm TOP BID PRN PRN Reason: Rash Nystatin (Nystop) 0 gm TOP TID [facility] Last Admin: 04/21/18 08:55 Dose: 1 applic Olanzapine (Zyprexa) 10 mg PO ASDIRECTED [facility] Olanzapine (Zyprexa) 10 mg PO BEDTIME [facility] Stop: 11/14/17 21:01 Last Admin: 11/14/17 21:28 Dose: 10 mg Olanzapine (Zyprexa) 10 mg PO BEDTIME [facility] Stop: 11/22/17 21:01 Last Admin: 11/22/17 21:41 Dose: 10 mg Omeprazole (Omeprazole) 20 mg PO SUTUTHSA@2100 [facility] Last Admin: 10/23/17 21:24 Dose: 20 mg Omeprazole (Omeprazole) 20 mg PO DAILY@2100 [facility] Last Admin: 12/11/17 20:18 Dose: 20 mg Omeprazole (Omeprazole) 20 mg PO BID [facility] Last Admin: 12/13/17 09:27 Dose: 20 mg Omeprazole (Omeprazole) 20 mg PO BIDAC [facility] Last Admin: 12/17/17 16:45 Dose: 20 mg Omeprazole (Omeprazole) 20 mg PO DAILY@0600,1700 [facility] Last Admin: 01/20/18 06:27 Dose: 20 mg Omeprazole (Omeprazole) 20 mg PO BID@0600,1700 [facility] Last Admin: 02/15/18 06:44 Dose: 20 mg Omeprazole (Omeprazole) Confirm Administered Dose 20 mg .ROUTE .[facility] ONE Stop: 04/03/18 06:36 Last Admin: 04/03/18 09:08 Dose: Not Given Ondansetron HCl (Zofran Odt) 8 mg PO TID PRN PRN Reason: nausea or vomitting Last Admin: 01/26/18 17:53 Dose: 8 mg Oxycodone HCl (Oxycodone) 5 mg PO Q6H [facility] Last Admin: 10/23/17 06:11 Dose: 5 mg Oxycodone HCl (Oxycodone) 5 mg PO Q6H [facility] Last Admin: 10/24/17 06:21 Dose: Not Given Oxycodone HCl (Oxycodone) 5 mg PO Q6H PRN PRN Reason: Pain Last Admin: 02/14/18 13:38 Dose: 5 mg Oxycodone HCl (Oxycodone) 5 mg PO BEDTIME [facility] Last Admin: 12/07/17 20:02 Dose: 5 mg Oxycodone HCl (Oxycodone) 5 mg PO ONETIME ONE Stop: 11/23/17 18:12 Last Admin: 11/23/17 18:48 Dose: 5 mg Oxycodone HCl (Oxycodone) 7.5 mg PO BEDTIME [facility] Stop: 12/13/17 23:00 Last Admin: 12/13/17 20:05 Dose: 7.5 mg Oxycodone HCl (Oxycodone) 5 mg PO ONETIME ONE Stop: 12/13/17 17:59 Last Admin: 12/13/17 18:21 Dose: 5 mg Oxycodone HCl (Oxycontin) 10 mg PO Q12H [facility] Last Admin: 02/16/18 08:22 Dose: 10 mg Oxycodone HCl (Oxycontin) Confirm Administered Dose 10 mg .ROUTE .STK-MED ONE Stop: 12/31/17 11:25 Last Admin: 12/31/17 11:26 Dose: 10 mg Metoprolol Tartrate (100 Mg Tab) 0.5 each PO BID [facility] Last Admin: 05/22/18 21:36 Dose: Not Given Losartan 100 Mg Tab 1 each PO DAILY [facility] Last Admin: 04/29/18 08:58 Dose: 1 each Amlodipine 5 Mg Tab 5 each PO DAILY [facility] Last Admin: 03/07/18 08:22 Dose: 5 each Insulin Detemir 100 (Units/Ml 3 Ml Pen) 42 each SUBCUT DAILY [facility] Last Admin: 04/11/18 09:00 Dose: 42 each Nystatin Cream 30gm (Tube) 1 each TOP BID PRN PRN Reason: Rash Last Admin: 04/07/18 11:25 Dose: 1 each Amlodipine 5 Mg Tab 1 each PO DAILY [facility] Last Admin: 05/14/18 08:18 Dose: 1 each Insulin Detemir 100 (Units/Ml 3 Ml Pen) 38 each SUBCUT DAILY [facility] Last Admin: 05/14/18 08:17 Dose: 38 each Polysaccharide Iron Complex (Ferrex 150) 150 mg PO DAILY KIERA Last Admin: 12/20/17 08:05 Dose: 150 mg Polysaccharide Iron Complex (Ferrex 150) 150 mg PO DAILY@1200 [facility] Last Admin: 12/27/17 11:36 Dose: 150 mg Polysaccharide Iron Complex (Ferrex 150) 150 mg PO DAILY [facility] Last Admin: 02/09/18 08:17 Dose: 150 mg Polysaccharide Iron Complex (Ferrex 150) 150 mg PO Q48H [facility] Last Admin: 02/09/18 11:46 Dose: Not Given Prochlorperazine Maleate (Compazine) 10 mg PO QID PRN PRN Reason: Nausea Prochlorperazine Maleate (Compazine) 10 mg PO QID PRN PRN Reason: Nausea Last Admin: 01/16/18 20:25 Dose: 10 mg Promethazine HCl (Phenergan) 25 mg IM Q6H PRN PRN Reason: Nausea Last Admin: 04/22/18 21:37 Dose: 25 mg Ramelteon (Rozerem) 8 mg PO BEDTIME [facility] Last Admin: 02/16/18 22:33 Dose: 8 mg Senna/Docusate Sodium (Senna Plus) 1 tab PO BID PRN PRN Reason: Constipation Last Admin: 10/28/17 08:08 Dose: 1 tab Senna/Docusate Sodium (Senna Plus) 1 tab PO BID [facility] Last Admin: 11/04/17 15:49 Dose: Not Given Senna/Docusate Sodium (Senna Plus) 1 - 2 tab PO DAILY PRN PRN Reason: Constipation Sertraline HCl (Zoloft) 100 mg PO BEDTIME [facility] Last Admin: 01/07/18 20:58 Dose: 100 mg Sertraline HCl (Zoloft) 150 mg PO BEDTIME [facility] Last Admin: 02/14/18 20:02 Dose: 150 mg Simvastatin (Zocor) 40 mg PO BEDTIME [facility] Last Admin: 02/14/18 20:03 Dose: 40 mg Sodium Chloride ([place] Nasal [place]) 1 ml ALDO QID PRN PRN Reason: Dryness Last Admin: 11/12/17 21:03 Dose: 1 spray Sodium Chloride (Normal Saline) 20 ml FLUSH ASDIRECTED PRN PRN Reason: Other Sodium Chloride (Saline Flush) 20 ml FLUSH Q8H [facility] Last Admin: 11/02/17 10:46 Dose: Not Given Sodium Chloride (Saline Flush) 20 ml FLUSH Q8H [facility] Last Admin: 11/11/17 12:20 Dose: Not Given Zinc Gluconate (Zinc) 50 mg PO DAILY [facility] Last Admin: 12/20/17 08:05 Dose: 50 mg Zinc Gluconate (Zinc) 50 mg PO DAILY@1200 [facility] Last Admin: 12/27/17 11:35 Dose: 50 mg - Exam General: Alert, Oriented, Cooperative, No Acute Distress Lungs: Clear to Auscultation, Normal Respiratory Effort Cardiovascular: Regular Rate, Regular Rhythm GI/Abdominal Exam: Soft, Non-Tender. No: No Distention, Distended, Abnormal Bowel Sounds (Female) Exam: Deferred Back Exam: No: CVA Tenderness (L), CVA Tenderness (R) Extremities: No Pedal Edema. No: Pedal Edema Psy/Mental Status: Alert, Normal Affect - Problem List Review Problem List Initiated/Reviewed/Updated: Yes - Plan Plan:: HPI: This is a 76 year old female who had previously been in swing bed status due to a left humeral fracture and deconditioning. The patient has been recently diagnosed with peritoneal carcinomatosis. The patient was sent up to [facility] on 10/20/17 for abdominal paracentesis and pleurx catheter placement. She had labs done that day which showed a hemoglobin of 6.5. She was then admitted to their hospitalist services. She was given 2 units of PRBCs. She was due for her second cycle of carboplatin and taxol while there and this was completed on 10/21/17. She was also given Neulasta prior to discharge. The patient was admitted back to swing bed status for rehabilitation of her fracture and deconditioning. Update, patient does have new symptoms of GI disturbance with mild nausea and mild abdominal pain mid epigastric after eating. Currently on PPI therapy. PRIMARY HOSPITAL PROBLEMS Left humeral head fracture. Patient with periodic pain however mainly on movement/PT manipulation She does have significant limitations in her left arm with almost no ability to abduct 30 however ongoing physical therapy is assisting with ROM and strengthening. Stage IV pressure ulcer to coccyx, no signs and symptoms of infection, healing slowly. No longer receiving NPWT due to observed undermining/sinus tracking in wound, and the need for repeated sharps debridement, along with little to no drainage. Decubitus ulcer good granulation base coccyx, 2 cm superior tracking , healing however very slow, signs of infection Deconditioning. Has greatly improved, Continue physical therapy right bicipital tendon rupture. Cont PT, no further tx due to condition/co- morbities, age, occupation Nausea, Hold schedule narcotics, Ensure PPI on empty stomach, low-dose Reglan 2 days, acids, may consider trail of Urosodial. SECONDARY ASSESSMENT/PLAN: Malignant ascites. PleurX catheter clogged. Unsuccessful attempt upon removing in the past. Anemia due to antineoplastic chemotherapy. recent hemoglobin Hgb stable at 12.3. Anxiety, very stable, Much improved affect Primary peritoneal carcinomatosis. Followed by Dr. Collier/oncology with ongoing Pleurx abdominal drain however is clogged. History of endometrial cancer, s/p hysterceomty 2009. CAD, no ischemic picture, stable. Immunocompromised host. No fever no infectious process. HTN. Continue lopressor and losartan and Norvasc 5 mg Aortic stenosis. History of atrial flutter. T2dm 2 DM. Adequate fasting Accuchecks daily. Tresiba switched to levemir daily due to not being available in house. 42 units CKD stage 3. Creatinine acceptable Hyperlipidemia. Continue simvastatin. Obesity. Gout. Continue allopurinol 100 mg daily. Diabetic retinopathy. Depression. Continue zoloft. GERD. Continue omeprazole bid, limit fluids during meals, patient positioning after meals OAB. Osteoarthritis. History of hypercalcemia. Recent Hypoalbuminemia. DVT prophylaxis. Score of 6, Continue with phan stockings. Overall plan: Continue an SNF with PT. Continue with physical therapy with left humeral exercises. For her nausea, Hold schedule narcotics, Ensure PPI on empty stomach, low-dose Reglan 2 days, acids, may consider trail of Urosodial.
[2018-05-31] MEDS ORDERED: METOCLOPRAMIDE 5 MG PO SCH (17:30)
[2018-05-31] MEDS ORDERED: Metoclopramide 5 MG Tab PO SCH (17:30)
[2018-05-31] MEDS: METOCLOPRAMIDE 5 MG PO SCH (17:41)
[2018-05-31] MEDS: ROZEREM 8 MG PO SCH (20:06)
[2018-05-31] MEDS: Simvastatin 20 MG Tab PO SCH (20:07)
[2018-05-31] MEDS: Sertraline 100 MG Tab PO SCH (20:07)
[2018-06-01] MEDS: Acetaminophen 500 MG Tab PO SCH ×3 (06:20→22:48)
[2018-06-01] MEDS: Omeprazole 20 MG Cap.CR PO SCH ×2 (06:21→17:03)
[2018-06-01] MEDS: Furosemide 20 MG Tab PO SCH (06:21)
[2018-06-01] MEDS: METOCLOPRAMIDE 5 MG PO SCH ×3 (06:22→17:03)
[2018-06-01] MEDS: Zinc (Zinc Gluconate) 50 MG Tab PO SCH (08:06)
[2018-06-01] MEDS: Multivitamins with Minerals/Iron/Folic Acid/Lycopene Tab PO SCH (08:06)
[2018-06-01] MEDS: Docusate Sodium 100 MG Cap PO SCH (08:06)
[2018-06-01] MEDS: Iron Polysaccharides Complex 150 MG Cap PO SCH (08:06)
[2018-06-01] MEDS: Allopurinol 100 MG Tab PO SCH (08:08)
[2018-06-01] MEDS: Naloxegol Oxalate 25 MG Tab PO SCH (08:08)
[2018-06-01] MEDS: METOPROLOL 100 MG PO SCH ×2 (08:08→22:05)
[2018-06-01] MEDS: Chlorthalidone 25 MG Tab PO SCH (08:08)
[2018-06-01] MEDS: buPROPion 150 MG Tab.ER PO SCH (08:08)
[2018-06-01] MEDS: INSULIN DETEMIR 100 UNIT/ML SUBCUT SCH (08:09)
[2018-06-01] MEDS: Nystatin Topical Powder 15 GM Bottle TOP SCH (08:10)
[2018-06-01] MEDS: ROZEREM 8 MG PO SCH (22:03)
[2018-06-01] MEDS: Simvastatin 20 MG Tab PO SCH (22:04)
[2018-06-01] MEDS: Sertraline 100 MG Tab PO SCH (22:05)
[2018-06-02] MEDS: Acetaminophen 500 MG Tab PO SCH ×3 (06:05→22:08)
[2018-06-02] MEDS: Furosemide 20 MG Tab PO SCH ×2 (06:07→14:37)
[2018-06-02] MEDS: METOCLOPRAMIDE 5 MG PO SCH (06:08)
[2018-06-02] MEDS: Omeprazole 20 MG Cap.CR PO SCH ×2 (06:08→16:54)
[2018-06-02] MEDS: Zinc (Zinc Gluconate) 50 MG Tab PO SCH (08:11)
[2018-06-02] MEDS: Multivitamins with Minerals/Iron/Folic Acid/Lycopene Tab PO SCH (08:11)
[2018-06-02] MEDS: Docusate Sodium 100 MG Cap PO SCH (08:11)
[2018-06-02] MEDS: Allopurinol 100 MG Tab PO SCH (08:12)
[2018-06-02] MEDS: buPROPion 150 MG Tab.ER PO SCH (08:12)
[2018-06-02] MEDS: Naloxegol Oxalate 25 MG Tab PO SCH (08:12)
[2018-06-02] MEDS: Chlorthalidone 25 MG Tab PO SCH (08:12)
[2018-06-02] MEDS: Nystatin Topical Powder 15 GM Bottle TOP SCH (08:13)
[2018-06-02] MEDS: INSULIN DETEMIR 100 UNIT/ML SUBCUT SCH (08:14)
[2018-06-02] MEDS: METOPROLOL 100 MG PO SCH ×2 (08:14→20:21)
[2018-06-02] MEDS: oxyCODONE 5 MG Tab PO PRN ×2 (13:19→20:20)
[2018-06-02] MEDS: Metoclopramide 5 MG Tab PO SCH ×2 (13:20→22:09)
[2018-06-02] MEDS: Sertraline 100 MG Tab PO SCH (20:22)
[2018-06-02] MEDS: ROZEREM 8 MG PO SCH (20:23)
[2018-06-02] MEDS: Simvastatin 20 MG Tab PO SCH (20:23)
[2018-06-03] MEDS: Furosemide 20 MG Tab PO SCH (06:03)
[2018-06-03] MEDS: Metoclopramide 5 MG Tab PO SCH ×3 (06:03→21:57)
[2018-06-03] MEDS: Acetaminophen 500 MG Tab PO SCH ×3 (06:03→21:59)
[2018-06-03] MEDS: Omeprazole 20 MG Cap.CR PO SCH ×2 (06:04→16:56)
[2018-06-03] MEDS: Multivitamins with Minerals/Iron/Folic Acid/Lycopene Tab PO SCH (08:19)
[2018-06-03] MEDS: Docusate Sodium 100 MG Cap PO SCH (08:19)
[2018-06-03] MEDS: Zinc (Zinc Gluconate) 50 MG Tab PO SCH (08:19)
[2018-06-03] MEDS: Iron Polysaccharides Complex 150 MG Cap PO SCH (08:19)
[2018-06-03] MEDS: INSULIN DETEMIR 100 UNIT/ML SUBCUT SCH (08:20)
[2018-06-03] MEDS: buPROPion 150 MG Tab.ER PO SCH (08:21)
[2018-06-03] MEDS: METOPROLOL 100 MG PO SCH ×2 (08:21→20:30)
[2018-06-03] MEDS: Naloxegol Oxalate 25 MG Tab PO SCH (08:21)
[2018-06-03] MEDS: Allopurinol 100 MG Tab PO SCH (08:22)
[2018-06-03] MEDS: Nystatin Topical Powder 15 GM Bottle TOP SCH (08:22)
[2018-06-03] MEDS: Chlorthalidone 25 MG Tab PO SCH (08:22)
[2018-06-03] MEDS: oxyCODONE 5 MG Tab PO PRN (11:31)
[2018-06-03] MEDS: Simvastatin 20 MG Tab PO SCH (20:30)
[2018-06-03] MEDS: ROZEREM 8 MG PO SCH (20:30)
[2018-06-03] MEDS: Sertraline 100 MG Tab PO SCH (20:30)
[2018-06-04] MEDS: oxyCODONE 5 MG Tab PO PRN (04:05)
[2018-06-04] MEDS: Omeprazole 20 MG Cap.CR PO SCH ×2 (06:53→18:22)
[2018-06-04] MEDS: Furosemide 20 MG Tab PO SCH ×2 (06:53→16:03)
[2018-06-04] MEDS: Acetaminophen 500 MG Tab PO SCH ×2 (06:55→16:02)
[2018-06-04] MEDS: Zinc (Zinc Gluconate) 50 MG Tab PO SCH (08:08)
[2018-06-04] MEDS: Docusate Sodium 100 MG Cap PO SCH (08:08)
[2018-06-04] MEDS: Multivitamins with Minerals/Iron/Folic Acid/Lycopene Tab PO SCH (08:08)
[2018-06-04] MEDS: METOPROLOL 100 MG PO SCH ×2 (08:09→20:27)
[2018-06-04] MEDS: INSULIN DETEMIR 100 UNIT/ML SUBCUT SCH (08:09)
[2018-06-04] MEDS: buPROPion 150 MG Tab.ER PO SCH (08:10)
[2018-06-04] MEDS: Naloxegol Oxalate 25 MG Tab PO SCH (08:10)
[2018-06-04] MEDS: Nystatin Topical Powder 15 GM Bottle TOP SCH (08:10)
[2018-06-04] MEDS: Chlorthalidone 25 MG Tab PO SCH (08:10)
[2018-06-04] MEDS: Allopurinol 100 MG Tab PO SCH (08:11)
[2018-06-04] MEDS: Aspirin 81 MG Tab.EC PO SCH (20:25)
[2018-06-04] MEDS: ROZEREM 8 MG PO SCH (20:27)
[2018-06-04] MEDS: Simvastatin 20 MG Tab PO SCH (20:28)
[2018-06-04] MEDS: Sertraline 100 MG Tab PO SCH (20:28)
[2018-06-05] MEDS: Acetaminophen 500 MG Tab PO SCH ×4 (03:20→22:34)
[2018-06-05] MEDS: Furosemide 20 MG Tab PO SCH ×2 (06:32→16:00)
[2018-06-05] MEDS: Omeprazole 20 MG Cap.CR PO SCH ×2 (06:33→16:58)
[2018-06-05] MEDS: Docusate Sodium 100 MG Cap PO SCH (08:05)
[2018-06-05] MEDS: Multivitamins with Minerals/Iron/Folic Acid/Lycopene Tab PO SCH (08:06)
[2018-06-05] MEDS: METOPROLOL 100 MG PO SCH ×2 (08:06→20:31)
[2018-06-05] MEDS: Iron Polysaccharides Complex 150 MG Cap PO SCH (08:06)
[2018-06-05] MEDS: Zinc (Zinc Gluconate) 50 MG Tab PO SCH (08:06)
[2018-06-05] MEDS: buPROPion 150 MG Tab.ER PO SCH (08:07)
[2018-06-05] MEDS: Naloxegol Oxalate 25 MG Tab PO SCH (08:07)
[2018-06-05] MEDS: Allopurinol 100 MG Tab PO SCH (08:08)
[2018-06-05] MEDS: INSULIN DETEMIR 100 UNIT/ML SUBCUT SCH (08:08)
[2018-06-05] MEDS: Chlorthalidone 25 MG Tab PO SCH (08:09)
[2018-06-05] MEDS: Nystatin Topical Powder 15 GM Bottle TOP SCH (08:13)
[2018-06-05] MEDS: oxyCODONE 5 MG Tab PO PRN ×2 (11:43→20:30)
[2018-06-05] MEDS: Aspirin 81 MG Tab.EC PO SCH (20:29)
[2018-06-05] MEDS: ROZEREM 8 MG PO SCH (20:32)
[2018-06-05] MEDS: Sertraline 100 MG Tab PO SCH (20:33)
[2018-06-05] MEDS: Simvastatin 20 MG Tab PO SCH (20:34)
[2018-06-06] MEDS: Furosemide 20 MG Tab PO SCH (06:27)
[2018-06-06] MEDS: Omeprazole 20 MG Cap.CR PO SCH ×2 (06:28→17:29)
[2018-06-06] MEDS: Acetaminophen 500 MG Tab PO SCH ×3 (06:29→22:16)
[2018-06-06] MEDS: buPROPion 150 MG Tab.ER PO SCH (08:11)
[2018-06-06] MEDS: Multivitamins with Minerals/Iron/Folic Acid/Lycopene Tab PO SCH (08:11)
[2018-06-06] MEDS: Docusate Sodium 100 MG Cap PO SCH (08:11)
[2018-06-06] MEDS: Zinc (Zinc Gluconate) 50 MG Tab PO SCH (08:11)
[2018-06-06] MEDS: Naloxegol Oxalate 25 MG Tab PO SCH (08:12)
[2018-06-06] MEDS: METOPROLOL 100 MG PO SCH ×2 (08:12→22:20)
[2018-06-06] MEDS: Allopurinol 100 MG Tab PO SCH (08:12)
[2018-06-06] MEDS: Chlorthalidone 25 MG Tab PO SCH (08:12)
[2018-06-06] MEDS: INSULIN DETEMIR 100 UNIT/ML SUBCUT SCH (08:13)
[2018-06-06] MEDS: Nystatin Topical Powder 15 GM Bottle TOP SCH (08:13)
[2018-06-06] MEDS: Ondansetron 4 MG Tab PO PRN (08:16)
[2018-06-06] MEDS: Simethicone 80 MG Tab.Chew PO PRN (12:46)
[2018-06-06] MEDS: oxyCODONE 5 MG Tab PO PRN ×2 (12:46→21:24)
[2018-06-06] MEDS: Simvastatin 20 MG Tab PO SCH (21:04)
[2018-06-06] MEDS: Aspirin 81 MG Tab.EC PO SCH (21:04)
[2018-06-06] MEDS: ROZEREM 8 MG PO SCH (21:06)
[2018-06-06] MEDS: Sertraline 100 MG Tab PO SCH (21:07)
[2018-06-07] MEDS: Acetaminophen 500 MG Tab PO SCH ×3 (06:36→23:51)
[2018-06-07] MEDS: Omeprazole 20 MG Cap.CR PO SCH ×2 (06:37→17:16)
[2018-06-07] MEDS: Furosemide 20 MG Tab PO SCH ×2 (06:37→15:31)
[2018-06-07] MEDS: INSULIN DETEMIR 100 UNIT/ML SUBCUT SCH (08:36)
[2018-06-07] MEDS: Zinc (Zinc Gluconate) 50 MG Tab PO SCH (08:37)
[2018-06-07] MEDS: Docusate Sodium 100 MG Cap PO SCH (08:37)
[2018-06-07] MEDS: buPROPion 150 MG Tab.ER PO SCH (08:37)
[2018-06-07] MEDS: Multivitamins with Minerals/Iron/Folic Acid/Lycopene Tab PO SCH (08:37)
[2018-06-07] MEDS: Chlorthalidone 25 MG Tab PO SCH (08:37)
[2018-06-07] MEDS: Allopurinol 100 MG Tab PO SCH (08:38)
[2018-06-07] MEDS: Naloxegol Oxalate 25 MG Tab PO SCH (08:38)
[2018-06-07] MEDS: Nystatin Topical Powder 15 GM Bottle TOP SCH (08:39)
[2018-06-07] MEDS: METOPROLOL 100 MG PO SCH ×2 (08:40→20:35)
[2018-06-07] MEDS: Iron Polysaccharides Complex 150 MG Cap PO SCH (08:44)
[2018-06-07] MEDS: Simvastatin 20 MG Tab PO SCH (20:26)
[2018-06-07] MEDS: Polyethylene Glycol 3350 Powder 17 GM Packet PO PRN (20:26)
[2018-06-07] MEDS: Aspirin 81 MG Tab.EC PO SCH (20:26)
[2018-06-07] MEDS: ROZEREM 8 MG PO SCH (20:27)
[2018-06-07] MEDS: Sertraline 100 MG Tab PO SCH (20:27)
[2018-06-08] MEDS: Omeprazole 20 MG Cap.CR PO SCH ×2 (06:07→16:41)
[2018-06-08] MEDS: buPROPion 150 MG Tab.ER PO SCH (08:11)
[2018-06-08] MEDS: Furosemide 20 MG Tab PO SCH (08:11)
[2018-06-08] MEDS: Chlorthalidone 25 MG Tab PO SCH (08:11)
[2018-06-08] MEDS: Allopurinol 100 MG Tab PO SCH (08:12)
[2018-06-08] MEDS: METOPROLOL 100 MG PO SCH ×2 (08:13→20:19)
[2018-06-08] MEDS: INSULIN DETEMIR 100 UNIT/ML SUBCUT SCH (08:13)
[2018-06-08] MEDS: Acetaminophen 500 MG Tab PO SCH ×3 (08:19→23:40)
[2018-06-08] MEDS: Docusate Sodium 100 MG Cap PO SCH (08:20)
[2018-06-08] MEDS: Zinc (Zinc Gluconate) 50 MG Tab PO SCH (08:20)
[2018-06-08] MEDS: Multivitamins with Minerals/Iron/Folic Acid/Lycopene Tab PO SCH (08:20)
[2018-06-08] MEDS: Naloxegol Oxalate 25 MG Tab PO SCH (08:26)
[2018-06-08] MEDS: Aluminum Hydroxide/Magnesium Hydroxide Susp 30 ML Cup PO PRN (08:31)
[2018-06-08] MEDS: Nystatin Topical Powder 15 GM Bottle TOP SCH (15:24)
[2018-06-08] MEDS: ROZEREM 8 MG PO SCH (20:18)
[2018-06-08] MEDS: Aspirin 81 MG Tab.EC PO SCH (20:18)
[2018-06-08] MEDS: Simvastatin 20 MG Tab PO SCH (20:19)
[2018-06-08] MEDS: Sertraline 100 MG Tab PO SCH (20:19)
[2018-06-09] MEDS: Omeprazole 20 MG Cap.CR PO SCH ×2 (06:16→16:45)
[2018-06-09] MEDS: Furosemide 20 MG Tab PO SCH ×2 (06:16→14:29)
[2018-06-09] MEDS: Acetaminophen 500 MG Tab PO SCH ×3 (06:16→23:35)
[2018-06-09] MEDS: Docusate Sodium 100 MG Cap PO SCH (08:15)
[2018-06-09] MEDS: METOPROLOL 100 MG PO SCH ×2 (08:15→20:45)
[2018-06-09] MEDS: Zinc (Zinc Gluconate) 50 MG Tab PO SCH (08:15)
[2018-06-09] MEDS: Multivitamins with Minerals/Iron/Folic Acid/Lycopene Tab PO SCH (08:15)
[2018-06-09] MEDS: Iron Polysaccharides Complex 150 MG Cap PO SCH (08:15)
[2018-06-09] MEDS: Naloxegol Oxalate 25 MG Tab PO SCH (08:16)
[2018-06-09] MEDS: Chlorthalidone 25 MG Tab PO SCH (08:16)
[2018-06-09] MEDS: Nystatin Topical Powder 15 GM Bottle TOP SCH (08:16)
[2018-06-09] MEDS: Allopurinol 100 MG Tab PO SCH (08:17)
[2018-06-09] MEDS: buPROPion 150 MG Tab.ER PO SCH (08:17)
[2018-06-09] MEDS: INSULIN DETEMIR 100 UNIT/ML SUBCUT SCH (08:17)
[2018-06-09] MEDS: Ondansetron 4 MG Tab PO PRN (12:30)
[2018-06-09] MEDS: oxyCODONE 5 MG Tab PO PRN (20:45)
[2018-06-09] MEDS: Aspirin 81 MG Tab.EC PO SCH (20:45)
[2018-06-09] MEDS: Simvastatin 20 MG Tab PO SCH (20:46)
[2018-06-09] MEDS: Sertraline 100 MG Tab PO SCH (20:46)
[2018-06-09] MEDS: ROZEREM 8 MG PO SCH (20:47)
[2018-06-10] MEDS: Omeprazole 20 MG Cap.CR PO SCH ×2 (06:32→16:26)
[2018-06-10] MEDS: Acetaminophen 500 MG Tab PO SCH ×3 (06:33→23:45)
[2018-06-10] MEDS: Furosemide 20 MG Tab PO SCH (06:33)
[2018-06-10] MEDS: Nystatin Topical Powder 15 GM Bottle TOP SCH (09:02)
[2018-06-10] MEDS: METOPROLOL 100 MG PO SCH ×2 (09:02→20:59)
[2018-06-10] MEDS: INSULIN DETEMIR 100 UNIT/ML SUBCUT SCH (09:03)
[2018-06-10] MEDS: Naloxegol Oxalate 25 MG Tab PO SCH (09:04)
[2018-06-10] MEDS: Allopurinol 100 MG Tab PO SCH (09:04)
[2018-06-10] MEDS: buPROPion 150 MG Tab.ER PO SCH (09:05)
[2018-06-10] MEDS: Chlorthalidone 25 MG Tab PO SCH (09:05)
[2018-06-10] MEDS: Zinc (Zinc Gluconate) 50 MG Tab PO SCH (09:08)
[2018-06-10] MEDS: Docusate Sodium 100 MG Cap PO SCH (09:08)
[2018-06-10] MEDS: Multivitamins with Minerals/Iron/Folic Acid/Lycopene Tab PO SCH (09:08)
[2018-06-10] MEDS: Ondansetron 4 MG Tab PO PRN (12:47)
[2018-06-10] MEDS: oxyCODONE 5 MG Tab PO PRN (16:26)
[2018-06-10] MEDS: Simvastatin 20 MG Tab PO SCH (20:59)
[2018-06-10] MEDS: Aspirin 81 MG Tab.EC PO SCH (20:59)
[2018-06-10] MEDS: Sertraline 100 MG Tab PO SCH (21:00)
[2018-06-10] MEDS: ROZEREM 8 MG PO SCH (21:00)
[2018-06-11] MEDS: Furosemide 20 MG Tab PO SCH ×2 (06:21→16:30)
[2018-06-11] MEDS: Acetaminophen 500 MG Tab PO SCH ×3 (06:21→23:24)
[2018-06-11] MEDS: Omeprazole 20 MG Cap.CR PO SCH ×2 (06:22→16:31)
[2018-06-11] MEDS: INSULIN DETEMIR 100 UNIT/ML SUBCUT SCH (08:05)
[2018-06-11] MEDS: Ondansetron 4 MG Tab PO PRN ×2 (08:06→18:40)
[2018-06-11] MEDS: METOPROLOL 100 MG PO SCH ×2 (08:07→21:33)
[2018-06-11] MEDS: buPROPion 150 MG Tab.ER PO SCH (08:08)
[2018-06-11] MEDS: Allopurinol 100 MG Tab PO SCH (08:08)
[2018-06-11] MEDS: Nystatin Topical Powder 15 GM Bottle TOP SCH (08:08)
[2018-06-11] MEDS: Chlorthalidone 25 MG Tab PO SCH (08:09)
[2018-06-11] MEDS: Naloxegol Oxalate 25 MG Tab PO SCH (08:10)
[2018-06-11] MEDS: Zinc (Zinc Gluconate) 50 MG Tab PO SCH (08:13)
[2018-06-11] MEDS: Iron Polysaccharides Complex 150 MG Cap PO SCH (08:14)
[2018-06-11] MEDS: Docusate Sodium 100 MG Cap PO SCH (08:14)
[2018-06-11] MEDS: Multivitamins with Minerals/Iron/Folic Acid/Lycopene Tab PO SCH (08:14)
[2018-06-11] MEDS: ROZEREM 8 MG PO SCH (21:33)
[2018-06-11] MEDS: Simvastatin 20 MG Tab PO SCH (21:33)
[2018-06-11] MEDS: oxyCODONE 5 MG Tab PO PRN (21:34)
[2018-06-11] MEDS: Sertraline 100 MG Tab PO SCH (21:34)
[2018-06-11] MEDS: Aspirin 81 MG Tab.EC PO SCH (21:37)
[2018-06-12] MEDS: Acetaminophen 500 MG Tab PO SCH ×3 (06:24→22:47)
[2018-06-12] MEDS: Omeprazole 20 MG Cap.CR PO SCH ×2 (06:25→17:45)
[2018-06-12] MEDS: Furosemide 20 MG Tab PO SCH ×2 (06:25→17:45)
[2018-06-12] MEDS: INSULIN DETEMIR 100 UNIT/ML SUBCUT SCH (08:05)
[2018-06-12] MEDS: Ondansetron 4 MG Tab PO PRN ×3 (08:05→17:44)
[2018-06-12] MEDS: buPROPion 150 MG Tab.ER PO SCH (08:05)
[2018-06-12] MEDS: Allopurinol 100 MG Tab PO SCH (08:06)
[2018-06-12] MEDS: Chlorthalidone 25 MG Tab PO SCH (08:07)
[2018-06-12] MEDS: METOPROLOL 100 MG PO SCH ×2 (08:08→21:38)
[2018-06-12] MEDS: Naloxegol Oxalate 25 MG Tab PO SCH (08:08)
[2018-06-12] MEDS: Docusate Sodium 100 MG Cap PO SCH (08:12)
[2018-06-12] MEDS: Zinc (Zinc Gluconate) 50 MG Tab PO SCH (08:12)
[2018-06-12] MEDS: Multivitamins with Minerals/Iron/Folic Acid/Lycopene Tab PO SCH (08:12)
[2018-06-12] MEDS: oxyCODONE 5 MG Tab PO PRN ×2 (10:38→17:44)
[2018-06-12] MEDS: Nystatin Topical Powder 15 GM Bottle TOP SCH (10:38)
[2018-06-12] MEDS: ROZEREM 8 MG PO SCH (21:36)
[2018-06-12] MEDS: Aspirin 81 MG Tab.EC PO SCH (21:36)
[2018-06-12] MEDS: Simvastatin 20 MG Tab PO SCH (21:37)
[2018-06-12] MEDS: Sertraline 100 MG Tab PO SCH (21:38)
[2018-06-13] MEDS: Acetaminophen 500 MG Tab PO SCH ×3 (06:13→23:01)
[2018-06-13] MEDS: Omeprazole 20 MG Cap.CR PO SCH ×2 (06:14→18:03)
[2018-06-13] MEDS: Furosemide 20 MG Tab PO SCH (06:14)
[2018-06-13] MEDS: oxyCODONE 5 MG Tab PO PRN (09:35)
[2018-06-13] MEDS: Docusate Sodium 100 MG Cap PO SCH (09:36)
[2018-06-13] MEDS: Multivitamins with Minerals/Iron/Folic Acid/Lycopene Tab PO SCH (09:36)
[2018-06-13] MEDS: Chlorthalidone 25 MG Tab PO SCH (09:39)
[2018-06-13] MEDS: buPROPion 150 MG Tab.ER PO SCH (09:39)
[2018-06-13] MEDS: METOPROLOL 100 MG PO SCH ×2 (09:40→20:35)
[2018-06-13] MEDS: Naloxegol Oxalate 25 MG Tab PO SCH (09:41)
[2018-06-13] MEDS: INSULIN DETEMIR 100 UNIT/ML SUBCUT SCH (09:42)
[2018-06-13] MEDS: Allopurinol 100 MG Tab PO SCH (09:42)
[2018-06-13] MEDS: Iron Polysaccharides Complex 150 MG Cap PO SCH (09:42)
[2018-06-13] MEDS: Nystatin Topical Powder 15 GM Bottle TOP SCH (15:37)
[2018-06-13] MEDS: Zinc (Zinc Gluconate) 50 MG Tab PO SCH (15:39)
[2018-06-13] MEDS: Ondansetron 4 MG Tab PO SCH (18:04)
[2018-06-13] MEDS: Aspirin 81 MG Tab.EC PO SCH (20:33)
[2018-06-13] MEDS: ROZEREM 8 MG PO SCH (20:34)
[2018-06-13] MEDS: Sertraline 100 MG Tab PO SCH (20:34)
[2018-06-13] MEDS: Simvastatin 20 MG Tab PO SCH (20:34)
[2018-06-14] MEDS: Acetaminophen 500 MG Tab PO SCH ×3 (06:03→22:21)
[2018-06-14] MEDS: Furosemide 20 MG Tab PO SCH ×2 (06:04→15:33)
[2018-06-14] MEDS: Ondansetron 4 MG Tab PO SCH ×3 (06:04→17:19)
[2018-06-14] MEDS: Omeprazole 20 MG Cap.CR PO SCH ×2 (06:04→17:19)
[2018-06-14] MEDS: Multivitamins with Minerals/Iron/Folic Acid/Lycopene Tab PO SCH (09:43)
[2018-06-14] MEDS: Zinc (Zinc Gluconate) 50 MG Tab PO SCH (09:43)
[2018-06-14] MEDS: Docusate Sodium 100 MG Cap PO SCH (09:44)
[2018-06-14] MEDS: Allopurinol 100 MG Tab PO SCH (09:45)
[2018-06-14] MEDS: buPROPion 150 MG Tab.ER PO SCH (09:45)
[2018-06-14] MEDS: Chlorthalidone 25 MG Tab PO SCH (09:46)
[2018-06-14] MEDS: INSULIN DETEMIR 100 UNIT/ML SUBCUT SCH (09:46)
[2018-06-14] MEDS: METOPROLOL 100 MG PO SCH ×2 (09:49→20:23)
[2018-06-14] MEDS: Nystatin Topical Powder 15 GM Bottle TOP SCH (09:50)
[2018-06-14] MEDS: Naloxegol Oxalate 25 MG Tab PO SCH (09:50)
[2018-06-14] MEDS: ROZEREM 8 MG PO SCH (20:21)
[2018-06-14] MEDS: Aspirin 81 MG Tab.EC PO SCH (20:21)
[2018-06-14] MEDS: Sertraline 100 MG Tab PO SCH (20:22)
[2018-06-14] MEDS: Simvastatin 20 MG Tab PO SCH (20:23)
[2018-06-15] MEDS: Omeprazole 20 MG Cap.CR PO SCH ×2 (06:10→17:25)
[2018-06-15] MEDS: Acetaminophen 500 MG Tab PO SCH ×3 (06:10→22:07)
[2018-06-15] MEDS: Furosemide 20 MG Tab PO SCH (06:11)
[2018-06-15] MEDS: Ondansetron 4 MG Tab PO SCH ×3 (06:11→17:25)
[2018-06-15] MEDS: Nystatin Topical Powder 15 GM Bottle TOP SCH (08:19)
[2018-06-15] MEDS: Allopurinol 100 MG Tab PO SCH (08:19)
[2018-06-15] MEDS: Multivitamins with Minerals/Iron/Folic Acid/Lycopene Tab PO SCH (08:20)
[2018-06-15] MEDS: Docusate Sodium 100 MG Cap PO SCH (08:20)
[2018-06-15] MEDS: Zinc (Zinc Gluconate) 50 MG Tab PO SCH (08:20)
[2018-06-15] MEDS: Chlorthalidone 25 MG Tab PO SCH (08:20)
[2018-06-15] MEDS: Naloxegol Oxalate 25 MG Tab PO SCH (08:20)
[2018-06-15] MEDS: buPROPion 150 MG Tab.ER PO SCH (08:21)
[2018-06-15] MEDS: INSULIN DETEMIR 100 UNIT/ML SUBCUT SCH (08:23)
[2018-06-15] MEDS: METOPROLOL 100 MG PO SCH ×2 (08:25→20:01)
[2018-06-15] MEDS: Iron Polysaccharides Complex 150 MG Cap PO SCH (08:29)
[2018-06-15] MEDS: Prochlorperazine 10 MG Tab PO PRN (18:31)
[2018-06-15] MEDS: ROZEREM 8 MG PO SCH (20:00)
[2018-06-15] MEDS: Aspirin 81 MG Tab.EC PO SCH (20:00)
[2018-06-15] MEDS: Sertraline 100 MG Tab PO SCH (20:00)
[2018-06-15] MEDS: Simvastatin 20 MG Tab PO SCH (20:01)
[2018-06-16] MEDS: Acetaminophen 500 MG Tab PO SCH ×2 (06:25→14:20)
[2018-06-16] MEDS: Furosemide 20 MG Tab PO SCH ×2 (06:26→14:23)
[2018-06-16] MEDS: Omeprazole 20 MG Cap.CR PO SCH ×2 (06:26→17:40)
[2018-06-16] MEDS: ONDANSETRON 8 MG PO SCH ×3 (06:27→17:40)
[2018-06-16] MEDS: Chlorthalidone 25 MG Tab PO SCH (08:17)
[2018-06-16] MEDS: INSULIN DETEMIR 100 UNIT/ML SUBCUT SCH (08:17)
[2018-06-16] MEDS: buPROPion 150 MG Tab.ER PO SCH (08:17)
[2018-06-16] MEDS: Nystatin Topical Powder 15 GM Bottle TOP SCH (08:18)
[2018-06-16] MEDS: Multivitamins with Minerals/Iron/Folic Acid/Lycopene Tab PO SCH (08:18)
[2018-06-16] MEDS: Naloxegol Oxalate 25 MG Tab PO SCH (08:18)
[2018-06-16] MEDS: Allopurinol 100 MG Tab PO SCH (08:18)
[2018-06-16] MEDS: Zinc (Zinc Gluconate) 50 MG Tab PO SCH (08:19)
[2018-06-16] MEDS: Docusate Sodium 100 MG Cap PO SCH (08:19)
[2018-06-16] MEDS: METOPROLOL 100 MG PO SCH ×2 (08:21→20:29)
[2018-06-16] MEDS: Simethicone 80 MG Tab.Chew PO PRN (12:43)
[2018-06-16] MEDS: Prochlorperazine 10 MG Tab PO PRN (13:31)
[2018-06-16] MEDS: Bisacodyl 10 MG Supp RECTAL PRN (14:13)
[2018-06-16] MEDS: Polyethylene Glycol 3350 Powder 17 GM Packet PO SCH (14:20)
[2018-06-16] MEDS: Aspirin 81 MG Tab.EC PO SCH (20:27)
[2018-06-16] MEDS: ROZEREM 8 MG PO SCH (20:30)
[2018-06-16] MEDS: Sertraline 100 MG Tab PO SCH (20:30)
[2018-06-16] MEDS: Simvastatin 20 MG Tab PO SCH (20:31)
[2018-06-17] MEDS: Acetaminophen 500 MG Tab PO SCH ×4 (06:21→22:07)
[2018-06-17] MEDS: Furosemide 20 MG Tab PO SCH (06:22)
[2018-06-17] MEDS: Omeprazole 20 MG Cap.CR PO SCH ×2 (06:22→16:51)
[2018-06-17] MEDS: ONDANSETRON 8 MG PO SCH ×3 (06:23→16:51)
[2018-06-17] MEDS: buPROPion 150 MG Tab.ER PO SCH (08:12)
[2018-06-17] MEDS: Chlorthalidone 25 MG Tab PO SCH (08:12)
[2018-06-17] MEDS: Allopurinol 100 MG Tab PO SCH (08:13)
[2018-06-17] MEDS: METOPROLOL 100 MG PO SCH ×2 (08:14→20:24)
[2018-06-17] MEDS: Naloxegol Oxalate 25 MG Tab PO SCH (08:14)
[2018-06-17] MEDS: INSULIN DETEMIR 100 UNIT/ML SUBCUT SCH (08:17)
[2018-06-17] MEDS: Nystatin Topical Powder 15 GM Bottle TOP SCH (08:22)
[2018-06-17] MEDS: Polyethylene Glycol 3350 Powder 17 GM Packet PO SCH (10:16)
[2018-06-17] MEDS: Zinc (Zinc Gluconate) 50 MG Tab PO SCH (10:16)
[2018-06-17] MEDS: Docusate Sodium 100 MG Cap PO SCH (10:16)
[2018-06-17] MEDS: Multivitamins with Minerals/Iron/Folic Acid/Lycopene Tab PO SCH (10:16)
[2018-06-17] MEDS: Iron Polysaccharides Complex 150 MG Cap PO SCH (10:17)
[2018-06-17] MEDS: Sertraline 100 MG Tab PO SCH (20:23)
[2018-06-17] MEDS: Simvastatin 20 MG Tab PO SCH (20:23)
[2018-06-17] MEDS: Aspirin 81 MG Tab.EC PO SCH (20:23)
[2018-06-17] MEDS: ROZEREM 8 MG PO SCH (20:24)
[2018-06-18] MEDS: Acetaminophen 500 MG Tab PO SCH ×3 (06:34→22:37)
[2018-06-18] MEDS: Furosemide 20 MG Tab PO SCH ×2 (06:35→16:35)
[2018-06-18] MEDS: Omeprazole 20 MG Cap.CR PO SCH ×2 (06:35→17:13)
[2018-06-18] MEDS: ONDANSETRON 8 MG PO SCH ×3 (06:36→17:13)
[2018-06-18] MEDS: Nystatin Topical Powder 15 GM Bottle TOP SCH (08:15)
[2018-06-18] MEDS: Multivitamins with Minerals/Iron/Folic Acid/Lycopene Tab PO SCH (08:15)
[2018-06-18] MEDS: Zinc (Zinc Gluconate) 50 MG Tab PO SCH (08:16)
[2018-06-18] MEDS: Docusate Sodium 100 MG Cap PO SCH (08:16)
[2018-06-18] MEDS: Naloxegol Oxalate 25 MG Tab PO SCH (08:16)
[2018-06-18] MEDS: Chlorthalidone 25 MG Tab PO SCH (08:17)
[2018-06-18] MEDS: buPROPion 150 MG Tab.ER PO SCH (08:17)
[2018-06-18] MEDS: Allopurinol 100 MG Tab PO SCH (08:17)
[2018-06-18] MEDS: Polyethylene Glycol 3350 Powder 17 GM Packet PO SCH (08:19)
[2018-06-18] MEDS: INSULIN DETEMIR 100 UNIT/ML SUBCUT SCH (08:21)
[2018-06-18] MEDS: METOPROLOL 100 MG PO SCH ×2 (08:21→20:51)
[2018-06-18] MEDS: Aspirin 81 MG Tab.EC PO SCH (20:48)
[2018-06-18] MEDS: ROZEREM 8 MG PO SCH (20:49)
[2018-06-18] MEDS: Sertraline 100 MG Tab PO SCH (20:49)
[2018-06-18] MEDS: Simvastatin 20 MG Tab PO SCH (20:50)
[2018-06-19] MEDS: Acetaminophen 500 MG Tab PO SCH ×3 (06:07→22:34)
[2018-06-19] MEDS: Omeprazole 20 MG Cap.CR PO SCH ×2 (06:08→17:02)
[2018-06-19] MEDS: Furosemide 20 MG Tab PO SCH ×2 (06:08→15:56)
[2018-06-19] MEDS: ONDANSETRON 8 MG PO SCH ×3 (06:08→17:02)
[2018-06-19] MEDS: Allopurinol 100 MG Tab PO SCH (08:16)
[2018-06-19] MEDS: Iron Polysaccharides Complex 150 MG Cap PO SCH (08:16)
[2018-06-19] MEDS: Zinc (Zinc Gluconate) 50 MG Tab PO SCH (08:16)
[2018-06-19] MEDS: Docusate Sodium 100 MG Cap PO SCH (08:16)
[2018-06-19] MEDS: Multivitamins with Minerals/Iron/Folic Acid/Lycopene Tab PO SCH (08:16)
[2018-06-19] MEDS: buPROPion 150 MG Tab.ER PO SCH (08:16)
[2018-06-19] MEDS: Naloxegol Oxalate 25 MG Tab PO SCH (08:17)
[2018-06-19] MEDS: Chlorthalidone 25 MG Tab PO SCH (08:17)
[2018-06-19] MEDS: METOPROLOL 100 MG PO SCH ×2 (08:18→21:45)
[2018-06-19] MEDS: INSULIN DETEMIR 100 UNIT/ML SUBCUT SCH (08:20)
[2018-06-19] MEDS: Nystatin Topical Powder 15 GM Bottle TOP SCH (08:21)
[2018-06-19] MEDS: Polyethylene Glycol 3350 Powder 17 GM Packet PO SCH (09:15)
[2018-06-19] MEDS: Aspirin 81 MG Tab.EC PO SCH (21:43)
[2018-06-19] MEDS: Simvastatin 20 MG Tab PO SCH (21:45)
[2018-06-19] MEDS: ROZEREM 8 MG PO SCH (21:45)
[2018-06-19] MEDS: Sertraline 100 MG Tab PO SCH (21:46)
[2018-06-20] MEDS: Omeprazole 20 MG Cap.CR PO SCH ×2 (06:02→17:06)
[2018-06-20] MEDS: Acetaminophen 500 MG Tab PO SCH ×3 (06:02→21:59)
[2018-06-20] MEDS: Furosemide 20 MG Tab PO SCH (06:02)
[2018-06-20] MEDS: ONDANSETRON 8 MG PO SCH ×3 (06:03→17:06)
[2018-06-20] MEDS: Naloxegol Oxalate 25 MG Tab PO SCH (08:08)
[2018-06-20] MEDS: Chlorthalidone 25 MG Tab PO SCH (08:08)
[2018-06-20] MEDS: Allopurinol 100 MG Tab PO SCH (08:09)
[2018-06-20] MEDS: buPROPion 150 MG Tab.ER PO SCH (08:09)
[2018-06-20] MEDS: METOPROLOL 100 MG PO SCH ×2 (08:10→20:02)
[2018-06-20] MEDS: Nystatin Topical Powder 15 GM Bottle TOP SCH (08:10)
[2018-06-20] MEDS: Polyethylene Glycol 3350 Powder 17 GM Packet PO SCH (08:17)
[2018-06-20] MEDS: Docusate Sodium 100 MG Cap PO SCH (08:18)
[2018-06-20] MEDS: Zinc (Zinc Gluconate) 50 MG Tab PO SCH (08:18)
[2018-06-20] MEDS: Insulin Detemir 100 Units/ML 3 ML Pen SUBCUT SCH (08:19)
[2018-06-20] MEDS: Multivitamins with Minerals/Iron/Folic Acid/Lycopene Tab PO SCH (08:22)
--- NOTE | 2018-06-20 10:38 | PCM.SN ---
- Free Text/Narrative Note: Reviewed VS and BGs. Due to intermittent low-end BPs and inconsistency of furosemide dosing in current regimen, additional 20mg furosemide scheduled on SuTuThSa was discontinued. Continue monitoring BPs. Due to decreasing BGs, most <100, decreased insulin from 32 units to 28 units daily. Continue monitoring BGs.
[2018-06-20] MEDS: Aspirin 81 MG Tab.EC PO SCH (20:01)
[2018-06-20] MEDS: ROZEREM 8 MG PO SCH (20:02)
[2018-06-20] MEDS: Sertraline 100 MG Tab PO SCH (20:02)
[2018-06-20] MEDS: Simvastatin 20 MG Tab PO SCH (20:03)
[2018-06-21] MEDS: Acetaminophen 500 MG Tab PO SCH ×2 (06:17→15:59)
[2018-06-21] MEDS: Furosemide 20 MG Tab PO SCH (06:18)
[2018-06-21] MEDS: ONDANSETRON 8 MG PO SCH ×3 (06:18→20:10)
[2018-06-21] MEDS: Omeprazole 20 MG Cap.CR PO SCH ×2 (06:18→20:09)
[2018-06-21] MEDS: Polyethylene Glycol 3350 Powder 17 GM Packet PO SCH (08:37)
[2018-06-21] MEDS: Nystatin Topical Powder 15 GM Bottle TOP SCH (08:38)
[2018-06-21] MEDS: Naloxegol Oxalate 25 MG Tab PO SCH (08:39)
[2018-06-21] MEDS: Insulin Detemir 100 Units/ML 3 ML Pen SUBCUT SCH (08:39)
[2018-06-21] MEDS: Allopurinol 100 MG Tab PO SCH (08:40)
[2018-06-21] MEDS: buPROPion 150 MG Tab.ER PO SCH (08:41)
[2018-06-21] MEDS: Docusate Sodium 100 MG Cap PO SCH (08:41)
[2018-06-21] MEDS: Chlorthalidone 25 MG Tab PO SCH (08:41)
[2018-06-21] MEDS: Zinc (Zinc Gluconate) 50 MG Tab PO SCH (08:42)
[2018-06-21] MEDS: Multivitamins with Minerals/Iron/Folic Acid/Lycopene Tab PO SCH (08:42)
[2018-06-21] MEDS: Iron Polysaccharides Complex 150 MG Cap PO SCH (08:50)
[2018-06-21] MEDS: METOPROLOL 100 MG PO SCH ×2 (08:54→20:45)
[2018-06-21] MEDS: Aspirin 81 MG Tab.EC PO SCH (20:42)
[2018-06-21] MEDS: Simvastatin 20 MG Tab PO SCH (20:43)
[2018-06-21] MEDS: Simethicone 80 MG Tab.Chew PO PRN (20:43)
[2018-06-21] MEDS: ROZEREM 8 MG PO SCH (20:43)
[2018-06-21] MEDS: Sertraline 100 MG Tab PO SCH (20:44)
[2018-06-22] MEDS: Acetaminophen 500 MG Tab PO SCH ×4 (01:57→22:55)
[2018-06-22] MEDS: Omeprazole 20 MG Cap.CR PO SCH ×2 (06:13→17:18)
[2018-06-22] MEDS: ONDANSETRON 8 MG PO SCH ×3 (07:18→17:18)
[2018-06-22] MEDS: Furosemide 20 MG Tab PO SCH (07:19)
[2018-06-22] MEDS: Diclofenac Sodium 1% Gel 100 GM Tube TOP PRN (07:53)
[2018-06-22] MEDS: Docusate Sodium 100 MG Cap PO SCH (08:54)
[2018-06-22] MEDS: Multivitamins with Minerals/Iron/Folic Acid/Lycopene Tab PO SCH (08:54)
[2018-06-22] MEDS: Chlorthalidone 25 MG Tab PO SCH (08:55)
[2018-06-22] MEDS: Polyethylene Glycol 3350 Powder 17 GM Packet PO SCH (08:55)
[2018-06-22] MEDS: Zinc (Zinc Gluconate) 50 MG Tab PO SCH (08:55)
[2018-06-22] MEDS: Allopurinol 100 MG Tab PO SCH (08:55)
[2018-06-22] MEDS: buPROPion 150 MG Tab.ER PO SCH (08:57)
[2018-06-22] MEDS: Naloxegol Oxalate 25 MG Tab PO SCH (08:59)
[2018-06-22] MEDS: METOPROLOL 100 MG PO SCH ×2 (08:59→20:32)
[2018-06-22] MEDS: Nystatin Topical Powder 15 GM Bottle TOP SCH (09:01)
[2018-06-22] MEDS: Insulin Detemir 100 Units/ML 3 ML Pen SUBCUT SCH (09:02)
[2018-06-22] MEDS: Aspirin 81 MG Tab.EC PO SCH (20:30)
[2018-06-22] MEDS: Sertraline 100 MG Tab PO SCH (20:33)
[2018-06-22] MEDS: ROZEREM 8 MG PO SCH (20:33)
[2018-06-22] MEDS: Simvastatin 20 MG Tab PO SCH ×2 (20:35→22:54)
[2018-06-23] MEDS: Acetaminophen 500 MG Tab PO SCH ×3 (06:08→23:18)
[2018-06-23] MEDS: Omeprazole 20 MG Cap.CR PO SCH ×2 (06:09→17:07)
[2018-06-23] MEDS: Furosemide 20 MG Tab PO SCH (06:09)
[2018-06-23] MEDS: ONDANSETRON 8 MG PO SCH ×3 (06:10→17:08)
[2018-06-23] MEDS: Zinc (Zinc Gluconate) 50 MG Tab PO SCH (12:14)
[2018-06-23] MEDS: Docusate Sodium 100 MG Cap PO SCH (12:14)
[2018-06-23] MEDS: Multivitamins with Minerals/Iron/Folic Acid/Lycopene Tab PO SCH (12:14)
[2018-06-23] MEDS: Insulin Detemir 100 Units/ML 3 ML Pen SUBCUT SCH (12:15)
[2018-06-23] MEDS: Allopurinol 100 MG Tab PO SCH (12:16)
[2018-06-23] MEDS: buPROPion 150 MG Tab.ER PO SCH (12:17)
[2018-06-23] MEDS: Naloxegol Oxalate 25 MG Tab PO SCH (12:19)
[2018-06-23] MEDS: Iron Polysaccharides Complex 150 MG Cap PO SCH (12:20)
[2018-06-23] MEDS: Chlorthalidone 25 MG Tab PO SCH (12:20)
[2018-06-23] MEDS: METOPROLOL 100 MG PO SCH ×2 (12:20→20:46)
[2018-06-23] MEDS: Nystatin Topical Powder 15 GM Bottle TOP SCH (12:21)
[2018-06-23] MEDS: Polyethylene Glycol 3350 Powder 17 GM Packet PO SCH (12:21)
[2018-06-23] MEDS: Aspirin 81 MG Tab.EC PO SCH (20:44)
[2018-06-23] MEDS: ROZEREM 8 MG PO SCH (20:47)
[2018-06-23] MEDS: Sertraline 100 MG Tab PO SCH ×2 (20:49→20:52)
[2018-06-23] MEDS: Simvastatin 20 MG Tab PO SCH (20:50)
[2018-06-24] MEDS: Acetaminophen 500 MG Tab PO SCH ×3 (06:09→21:11)
[2018-06-24] MEDS: Omeprazole 20 MG Cap.CR PO SCH ×2 (06:10→16:43)
[2018-06-24] MEDS: Furosemide 20 MG Tab PO SCH (06:10)
[2018-06-24] MEDS: ONDANSETRON 8 MG PO SCH ×3 (06:11→16:43)
[2018-06-24] MEDS: Docusate Sodium 100 MG Cap PO SCH (09:48)
[2018-06-24] MEDS: Multivitamins with Minerals/Iron/Folic Acid/Lycopene Tab PO SCH (09:48)
[2018-06-24] MEDS: Insulin Detemir 100 Units/ML 3 ML Pen SUBCUT SCH (09:48)
[2018-06-24] MEDS: Zinc (Zinc Gluconate) 50 MG Tab PO SCH (09:48)
[2018-06-24] MEDS: Polyethylene Glycol 3350 Powder 17 GM Packet PO SCH ×2 (09:48→11:14)
[2018-06-24] MEDS: Chlorthalidone 25 MG Tab PO SCH (09:51)
[2018-06-24] MEDS: Allopurinol 100 MG Tab PO SCH (09:51)
[2018-06-24] MEDS: Naloxegol Oxalate 25 MG Tab PO SCH (09:51)
[2018-06-24] MEDS: Nystatin Topical Powder 15 GM Bottle TOP SCH (09:53)
[2018-06-24] MEDS: buPROPion 150 MG Tab.ER PO SCH (09:53)
[2018-06-24] MEDS: METOPROLOL 100 MG PO SCH ×2 (10:00→21:07)
[2018-06-24] MEDS: Aspirin 81 MG Tab.EC PO SCH (21:03)
[2018-06-24] MEDS: Sertraline 100 MG Tab PO SCH (21:04)
[2018-06-24] MEDS: Simvastatin 20 MG Tab PO SCH (21:05)
[2018-06-24] MEDS: ROZEREM 8 MG PO SCH (21:06)
[2018-06-25] MEDS: Acetaminophen 500 MG Tab PO SCH ×3 (03:20→15:00)
[2018-06-25] MEDS: Omeprazole 20 MG Cap.CR PO SCH ×2 (06:18→17:41)
[2018-06-25] MEDS: Furosemide 20 MG Tab PO SCH (06:18)
[2018-06-25] MEDS: ONDANSETRON 8 MG PO SCH ×3 (06:19→17:43)
[2018-06-25] MEDS: Multivitamins with Minerals/Iron/Folic Acid/Lycopene Tab PO SCH (08:53)
[2018-06-25] MEDS: Docusate Sodium 100 MG Cap PO SCH (08:53)
[2018-06-25] MEDS: Iron Polysaccharides Complex 150 MG Cap PO SCH (08:54)
[2018-06-25] MEDS: Allopurinol 100 MG Tab PO SCH (08:54)
[2018-06-25] MEDS: Zinc (Zinc Gluconate) 50 MG Tab PO SCH (08:54)
[2018-06-25] MEDS: Polyethylene Glycol 3350 Powder 17 GM Packet PO SCH (08:54)
[2018-06-25] MEDS: Chlorthalidone 25 MG Tab PO SCH (08:56)
[2018-06-25] MEDS: Insulin Detemir 100 Units/ML 3 ML Pen SUBCUT SCH (08:57)
[2018-06-25] MEDS: Nystatin Topical Powder 15 GM Bottle TOP SCH (08:58)
[2018-06-25] MEDS: Naloxegol Oxalate 25 MG Tab PO SCH (08:59)
[2018-06-25] MEDS: METOPROLOL 100 MG PO SCH ×2 (09:01→21:36)
[2018-06-25] MEDS: buPROPion 150 MG Tab.ER PO SCH (09:02)
[2018-06-25] MEDS: Aspirin 81 MG Tab.EC PO SCH (21:34)
[2018-06-25] MEDS: ROZEREM 8 MG PO SCH (21:37)
[2018-06-25] MEDS: Simvastatin 20 MG Tab PO SCH (21:38)
[2018-06-25] MEDS: Sertraline 100 MG Tab PO SCH (21:39)
[2018-06-26] MEDS: Acetaminophen 500 MG Tab PO SCH ×4 (00:04→22:56)
[2018-06-26] MEDS: Furosemide 20 MG Tab PO SCH (06:00)
[2018-06-26] MEDS: ONDANSETRON 8 MG PO SCH ×3 (06:00→16:11)
[2018-06-26] MEDS: Omeprazole 20 MG Cap.CR PO SCH ×2 (06:01→16:12)
[2018-06-26] MEDS: Multivitamins with Minerals/Iron/Folic Acid/Lycopene Tab PO SCH (09:24)
[2018-06-26] MEDS: Zinc (Zinc Gluconate) 50 MG Tab PO SCH (09:24)
[2018-06-26] MEDS: Polyethylene Glycol 3350 Powder 17 GM Packet PO SCH (09:24)
[2018-06-26] MEDS: Docusate Sodium 100 MG Cap PO SCH (09:24)
[2018-06-26] MEDS: Allopurinol 100 MG Tab PO SCH (09:25)
[2018-06-26] MEDS: Insulin Detemir 100 Units/ML 3 ML Pen SUBCUT SCH (09:25)
[2018-06-26] MEDS: buPROPion 150 MG Tab.ER PO SCH (09:26)
[2018-06-26] MEDS: Chlorthalidone 25 MG Tab PO SCH (09:27)
[2018-06-26] MEDS: Nystatin Topical Powder 15 GM Bottle TOP SCH (09:30)
[2018-06-26] MEDS: Naloxegol Oxalate 25 MG Tab PO SCH (09:30)
[2018-06-26] MEDS: METOPROLOL 100 MG PO SCH ×2 (09:30→20:28)
[2018-06-26] MEDS: Aspirin 81 MG Tab.EC PO SCH (20:26)
[2018-06-26] MEDS: ROZEREM 8 MG PO SCH (20:26)
[2018-06-26] MEDS: Sertraline 100 MG Tab PO SCH (20:27)
[2018-06-26] MEDS: Simvastatin 20 MG Tab PO SCH (20:28)
[2018-06-27] MEDS: Omeprazole 20 MG Cap.CR PO SCH ×2 (06:30→16:48)
[2018-06-27] MEDS: Acetaminophen 500 MG Tab PO SCH ×3 (06:31→23:50)
[2018-06-27] MEDS: ONDANSETRON 8 MG PO SCH ×3 (06:31→16:48)
[2018-06-27] MEDS: Furosemide 20 MG Tab PO SCH (06:32)
[2018-06-27] MEDS: Multivitamins with Minerals/Iron/Folic Acid/Lycopene Tab PO SCH (08:06)
[2018-06-27] MEDS: Docusate Sodium 100 MG Cap PO SCH (08:06)
[2018-06-27] MEDS: Zinc (Zinc Gluconate) 50 MG Tab PO SCH (08:06)
[2018-06-27] MEDS: Naloxegol Oxalate 25 MG Tab PO SCH (08:07)
[2018-06-27] MEDS: Allopurinol 100 MG Tab PO SCH (08:07)
[2018-06-27] MEDS: Chlorthalidone 25 MG Tab PO SCH (08:08)
[2018-06-27] MEDS: Iron Polysaccharides Complex 150 MG Cap PO SCH (08:08)
[2018-06-27] MEDS: buPROPion 150 MG Tab.ER PO SCH (08:10)
[2018-06-27] MEDS: Insulin Detemir 100 Units/ML 3 ML Pen SUBCUT SCH (08:11)
[2018-06-27] MEDS: Polyethylene Glycol 3350 Powder 17 GM Packet PO SCH (08:13)
[2018-06-27] MEDS: METOPROLOL 100 MG PO SCH ×2 (08:25→20:09)
[2018-06-27] MEDS: Nystatin Topical Powder 15 GM Bottle TOP SCH (11:08)
[2018-06-27] MEDS: oxyCODONE 5 MG Tab PO PRN (12:26)
[2018-06-27] MEDS: Aspirin 81 MG Tab.EC PO SCH (20:09)
[2018-06-27] MEDS: Simvastatin 20 MG Tab PO SCH (20:09)
[2018-06-27] MEDS: ROZEREM 8 MG PO SCH (20:09)
[2018-06-27] MEDS: Sertraline 100 MG Tab PO SCH (20:10)
[2018-06-28] MEDS: Acetaminophen 500 MG Tab PO SCH ×3 (06:31→23:15)
[2018-06-28] MEDS: Omeprazole 20 MG Cap.CR PO SCH ×2 (06:32→16:56)
[2018-06-28] MEDS: Furosemide 20 MG Tab PO SCH (06:33)
[2018-06-28] MEDS: ONDANSETRON 8 MG PO SCH ×3 (06:34→16:57)
[2018-06-28] MEDS: Allopurinol 100 MG Tab PO SCH (08:06)
[2018-06-28] MEDS: Docusate Sodium 100 MG Cap PO SCH (08:06)
[2018-06-28] MEDS: Zinc (Zinc Gluconate) 50 MG Tab PO SCH (08:06)
[2018-06-28] MEDS: Multivitamins with Minerals/Iron/Folic Acid/Lycopene Tab PO SCH (08:06)
[2018-06-28] MEDS: Naloxegol Oxalate 25 MG Tab PO SCH (08:07)
[2018-06-28] MEDS: Chlorthalidone 25 MG Tab PO SCH (08:07)
[2018-06-28] MEDS: METOPROLOL 100 MG PO SCH ×2 (08:09→20:32)
[2018-06-28] MEDS: Polyethylene Glycol 3350 Powder 17 GM Packet PO SCH (08:10)
[2018-06-28] MEDS: Nystatin Topical Powder 15 GM Bottle TOP SCH (08:11)
[2018-06-28] MEDS: Insulin Detemir 100 Units/ML 3 ML Pen SUBCUT SCH (09:03)
[2018-06-28] MEDS: buPROPion 150 MG Tab.ER PO SCH (09:04)
[2018-06-28] MEDS: Aspirin 81 MG Tab.EC PO SCH (20:32)
[2018-06-28] MEDS: Sertraline 100 MG Tab PO SCH (20:32)
[2018-06-28] MEDS: ROZEREM 8 MG PO SCH (20:33)
[2018-06-28] MEDS: Simvastatin 20 MG Tab PO SCH (20:33)
[2018-06-29] MEDS: Simethicone 80 MG Tab.Chew PO PRN (02:55)
[2018-06-29] MEDS: ONDANSETRON 8 MG PO SCH ×3 (06:31→17:00)
[2018-06-29] MEDS: Furosemide 20 MG Tab PO SCH (06:31)
[2018-06-29] MEDS: Omeprazole 20 MG Cap.CR PO SCH ×2 (06:31→17:00)
[2018-06-29] MEDS: Acetaminophen 500 MG Tab PO SCH ×3 (06:31→23:07)
[2018-06-29] MEDS: Iron Polysaccharides Complex 150 MG Cap PO SCH (08:00)
[2018-06-29] MEDS: Docusate Sodium 100 MG Cap PO SCH (08:01)
[2018-06-29] MEDS: Naloxegol Oxalate 25 MG Tab PO SCH (08:01)
[2018-06-29] MEDS: Zinc (Zinc Gluconate) 50 MG Tab PO SCH (08:01)
[2018-06-29] MEDS: Multivitamins with Minerals/Iron/Folic Acid/Lycopene Tab PO SCH (08:01)
[2018-06-29] MEDS: Allopurinol 100 MG Tab PO SCH (08:02)
[2018-06-29] MEDS: Chlorthalidone 25 MG Tab PO SCH (08:02)
[2018-06-29] MEDS: buPROPion 150 MG Tab.ER PO SCH (08:02)
[2018-06-29] MEDS: Nystatin Topical Powder 15 GM Bottle TOP SCH (08:03)
[2018-06-29] MEDS: METOPROLOL 100 MG PO SCH ×2 (08:06→21:19)
[2018-06-29] MEDS: Polyethylene Glycol 3350 Powder 17 GM Packet PO SCH (08:06)
[2018-06-29] MEDS: Insulin Detemir 100 Units/ML 3 ML Pen SUBCUT SCH (08:07)
[2018-06-29 09:08] LABS: ANION GAP 13.2 mmol/L (5-15)
[2018-06-29] MEDS: Aspirin 81 MG Tab.EC PO SCH (21:19)
[2018-06-29] MEDS: Simvastatin 20 MG Tab PO SCH (21:20)
[2018-06-29] MEDS: ROZEREM 8 MG PO SCH (21:21)
[2018-06-29] MEDS: Sertraline 100 MG Tab PO SCH (21:21)
[2018-06-30] MEDS: Acetaminophen 500 MG Tab PO SCH ×3 (06:04→23:23)
[2018-06-30] MEDS: ONDANSETRON 8 MG PO SCH ×3 (06:05→17:01)
[2018-06-30] MEDS: Furosemide 20 MG Tab PO SCH (06:05)
[2018-06-30] MEDS: Omeprazole 20 MG Cap.CR PO SCH ×2 (06:05→17:00)
[2018-06-30] MEDS: Docusate Sodium 100 MG Cap PO SCH (08:22)
[2018-06-30] MEDS: Zinc (Zinc Gluconate) 50 MG Tab PO SCH (08:22)
[2018-06-30] MEDS: Multivitamins with Minerals/Iron/Folic Acid/Lycopene Tab PO SCH (08:22)
[2018-06-30] MEDS: Nystatin Topical Powder 15 GM Bottle TOP SCH (08:23)
[2018-06-30] MEDS: Insulin Detemir 100 Units/ML 3 ML Pen SUBCUT SCH (08:23)
[2018-06-30] MEDS: METOPROLOL 100 MG PO SCH ×2 (08:24→20:52)
[2018-06-30] MEDS: buPROPion 150 MG Tab.ER PO SCH (08:24)
[2018-06-30] MEDS: Chlorthalidone 25 MG Tab PO SCH (08:24)
[2018-06-30] MEDS: Allopurinol 100 MG Tab PO SCH (08:24)
[2018-06-30] MEDS: Naloxegol Oxalate 25 MG Tab PO SCH (08:24)
[2018-06-30] MEDS: Polyethylene Glycol 3350 Powder 17 GM Packet PO SCH (08:35)
[2018-06-30] MEDS: Simethicone 80 MG Tab.Chew PO PRN (14:25)
[2018-06-30] MEDS: oxyCODONE 5 MG Tab PO PRN (14:25)
[2018-06-30] MEDS: Prochlorperazine 10 MG Tab PO PRN (14:49)
[2018-06-30] MEDS: Aspirin 81 MG Tab.EC PO SCH (20:51)
[2018-06-30] MEDS: ROZEREM 8 MG PO SCH (20:53)
[2018-06-30] MEDS: Simvastatin 20 MG Tab PO SCH (20:53)
[2018-06-30] MEDS: Sertraline 100 MG Tab PO SCH (20:53)
[2018-07-01] MEDS: Acetaminophen 500 MG Tab PO SCH ×3 (06:26→22:09)
[2018-07-01] MEDS: Furosemide 20 MG Tab PO SCH (06:26)
[2018-07-01] MEDS: Omeprazole 20 MG Cap.CR PO SCH ×2 (06:27→16:30)
[2018-07-01] MEDS: ONDANSETRON 8 MG PO SCH ×3 (06:28→19:28)
[2018-07-01] MEDS: Polyethylene Glycol 3350 Powder 17 GM Packet PO SCH (08:37)
[2018-07-01] MEDS: buPROPion 150 MG Tab.ER PO SCH (08:39)
[2018-07-01] MEDS: Chlorthalidone 25 MG Tab PO SCH (08:39)
[2018-07-01] MEDS: Naloxegol Oxalate 25 MG Tab PO SCH (08:39)
[2018-07-01] MEDS: Multivitamins with Minerals/Iron/Folic Acid/Lycopene Tab PO SCH (08:40)
[2018-07-01] MEDS: METOPROLOL 100 MG PO SCH ×2 (08:40→20:28)
[2018-07-01] MEDS: Zinc (Zinc Gluconate) 50 MG Tab PO SCH (08:40)
[2018-07-01] MEDS: Allopurinol 100 MG Tab PO SCH (08:40)
[2018-07-01] MEDS: Iron Polysaccharides Complex 150 MG Cap PO SCH (08:40)
[2018-07-01] MEDS: Docusate Sodium 100 MG Cap PO SCH (08:41)
[2018-07-01] MEDS: Nystatin Topical Powder 15 GM Bottle TOP SCH (08:41)
[2018-07-01] MEDS: Insulin Detemir 100 Units/ML 3 ML Pen SUBCUT SCH (08:42)
[2018-07-01] MEDS: Prochlorperazine 10 MG Tab PO PRN ×2 (13:28→20:28)
[2018-07-01] MEDS: Aspirin 81 MG Tab.EC PO SCH (20:28)
[2018-07-01] MEDS: Sertraline 100 MG Tab PO SCH (20:29)
[2018-07-01] MEDS: Simvastatin 20 MG Tab PO SCH (20:29)
[2018-07-01] MEDS: ROZEREM 8 MG PO SCH (20:29)
[2018-07-02] MEDS: ONDANSETRON 8 MG PO SCH ×3 (06:21→16:42)
[2018-07-02] MEDS: Acetaminophen 500 MG Tab PO SCH ×3 (06:21→21:59)
[2018-07-02] MEDS: Furosemide 20 MG Tab PO SCH (06:21)
[2018-07-02] MEDS: Omeprazole 20 MG Cap.CR PO SCH ×2 (06:21→16:42)
[2018-07-02] MEDS: Multivitamins with Minerals/Iron/Folic Acid/Lycopene Tab PO SCH (09:18)
[2018-07-02] MEDS: Zinc (Zinc Gluconate) 50 MG Tab PO SCH (09:18)
[2018-07-02] MEDS: Docusate Sodium 100 MG Cap PO SCH (09:18)
[2018-07-02] MEDS: METOPROLOL 100 MG PO SCH ×2 (09:19→21:00)
[2018-07-02] MEDS: buPROPion 150 MG Tab.ER PO SCH (09:20)
[2018-07-02] MEDS: Naloxegol Oxalate 25 MG Tab PO SCH (09:20)
[2018-07-02] MEDS: Insulin Detemir 100 Units/ML 3 ML Pen SUBCUT SCH (09:21)
[2018-07-02] MEDS: Chlorthalidone 25 MG Tab PO SCH (09:21)
[2018-07-02] MEDS: Allopurinol 100 MG Tab PO SCH (09:21)
[2018-07-02] MEDS: Nystatin Topical Powder 15 GM Bottle TOP SCH (09:22)
[2018-07-02] MEDS: Polyethylene Glycol 3350 Powder 17 GM Packet PO SCH (09:22)
[2018-07-02] MEDS: Prochlorperazine 10 MG Tab PO PRN (18:39)
[2018-07-02] MEDS: Aspirin 81 MG Tab.EC PO SCH (20:58)
[2018-07-02] MEDS: Simvastatin 20 MG Tab PO SCH (20:58)
[2018-07-02] MEDS: ROZEREM 8 MG PO SCH (20:58)
[2018-07-02] MEDS: Sertraline 100 MG Tab PO SCH (20:58)
[2018-07-03] MEDS: Furosemide 20 MG Tab PO SCH (06:33)
[2018-07-03] MEDS: Acetaminophen 500 MG Tab PO SCH ×3 (06:33→22:25)
[2018-07-03] MEDS: Omeprazole 20 MG Cap.CR PO SCH ×2 (06:33→18:01)
[2018-07-03] MEDS: ONDANSETRON 8 MG PO SCH ×3 (06:33→18:01)
[2018-07-03] MEDS: METOPROLOL 100 MG PO SCH ×2 (08:02→21:11)
[2018-07-03] MEDS: Zinc (Zinc Gluconate) 50 MG Tab PO SCH (08:03)
[2018-07-03] MEDS: Iron Polysaccharides Complex 150 MG Cap PO SCH (08:03)
[2018-07-03] MEDS: Docusate Sodium 100 MG Cap PO SCH (08:03)
[2018-07-03] MEDS: Multivitamins with Minerals/Iron/Folic Acid/Lycopene Tab PO SCH (08:03)
[2018-07-03] MEDS: Naloxegol Oxalate 25 MG Tab PO SCH (08:03)
[2018-07-03] MEDS: buPROPion 150 MG Tab.ER PO SCH (08:03)
[2018-07-03] MEDS: Chlorthalidone 25 MG Tab PO SCH (08:03)
[2018-07-03] MEDS: Allopurinol 100 MG Tab PO SCH (08:03)
[2018-07-03] MEDS: Nystatin Topical Powder 15 GM Bottle TOP SCH (08:04)
[2018-07-03] MEDS: Insulin Detemir 100 Units/ML 3 ML Pen SUBCUT SCH (08:04)
[2018-07-03] MEDS: Polyethylene Glycol 3350 Powder 17 GM Packet PO SCH (08:04)
[2018-07-03] MEDS: ROZEREM 8 MG PO SCH (21:10)
[2018-07-03] MEDS: Simvastatin 20 MG Tab PO SCH (21:10)
[2018-07-03] MEDS: Aspirin 81 MG Tab.EC PO SCH (21:10)
[2018-07-03] MEDS: Sertraline 100 MG Tab PO SCH (21:11)
[2018-07-04] MEDS: Acetaminophen 500 MG Tab PO SCH ×3 (06:40→23:03)
[2018-07-04] MEDS: ONDANSETRON 8 MG PO SCH ×3 (06:40→17:40)
[2018-07-04] MEDS: Furosemide 20 MG Tab PO SCH (06:41)
[2018-07-04] MEDS: Omeprazole 20 MG Cap.CR PO SCH ×2 (06:41→17:40)
[2018-07-04] MEDS: Naloxegol Oxalate 25 MG Tab PO SCH (08:52)
[2018-07-04] MEDS: Chlorthalidone 25 MG Tab PO SCH (08:52)
[2018-07-04] MEDS: buPROPion 150 MG Tab.ER PO SCH (08:53)
[2018-07-04] MEDS: Allopurinol 100 MG Tab PO SCH (08:54)
[2018-07-04] MEDS: Multivitamins with Minerals/Iron/Folic Acid/Lycopene Tab PO SCH (08:54)
[2018-07-04] MEDS: Docusate Sodium 100 MG Cap PO SCH (08:54)
[2018-07-04] MEDS: Insulin Detemir 100 Units/ML 3 ML Pen SUBCUT SCH (08:55)
[2018-07-04] MEDS: METOPROLOL 100 MG PO SCH ×2 (08:57→20:24)
[2018-07-04] MEDS: Nystatin Topical Powder 15 GM Bottle TOP SCH (08:58)
[2018-07-04] MEDS: Polyethylene Glycol 3350 Powder 17 GM Packet PO SCH (08:58)
[2018-07-04] MEDS: Zinc (Zinc Gluconate) 50 MG Tab PO SCH (09:03)
[2018-07-04] MEDS: Simvastatin 20 MG Tab PO SCH (20:22)
[2018-07-04] MEDS: Aspirin 81 MG Tab.EC PO SCH (20:22)
[2018-07-04] MEDS: ROZEREM 8 MG PO SCH (20:23)
[2018-07-04] MEDS: Sertraline 100 MG Tab PO SCH (20:23)
[2018-07-05] MEDS: Furosemide 20 MG Tab PO SCH (06:43)
[2018-07-05] MEDS: Acetaminophen 500 MG Tab PO SCH ×3 (06:43→23:30)
[2018-07-05] MEDS: Omeprazole 20 MG Cap.CR PO SCH ×2 (06:44→17:11)
[2018-07-05] MEDS: ONDANSETRON 8 MG PO SCH ×3 (06:44→17:12)
--- NOTE | 2018-07-05 08:35 | PCM.PN ---
- General Info Date of Service: 07/01/18 Functional Status: Reports: Ambulating, Urinating, New Symptoms. Denies: Pain Controlled, Tolerating Diet - Review of Systems General: Denies: Appetite HEENT: Reports: Dysphasia Pulmonary: Reports: No Symptoms Cardiovascular: Reports: No Symptoms Gastrointestinal: Reports: Decreased Appetite, Difficulty Swallowing, Nausea. Denies: Diarrhea, Vomiting Genitourinary: Reports: No Symptoms Musculoskeletal: Reports: Shoulder Pain Skin: Reports: No Symptoms Neurological: Reports: Weakness Psychiatric: Reports: Depression. Denies: Agitation - Patient Data Vitals - Most Recent: Last Vital Signs Temp 98.2 F 07/05/18 06:55 Pulse 61 07/05/18 06:55 Resp 18 07/05/18 06:55 BP 153/71 H 07/05/18 06:55 Pulse Ox 93 L 07/05/18 07:45 Weight - Most Recent: 181 lb I&O - Last 24 Hours: Intake & Output 07/04/18 07/05/18 07/05/18 22:59 06:59 14:59 Intake Total 50 50 Balance 50 50 Lab Results Last 24 Hours: Laboratory Results - last 24 hr 07/05/18 Range/Units 07:11 POC Glucose 138 H (74-106) mg/dl Med Orders - Current: Current Medications Acetaminophen (Tylenol Extra Strength) 1,000 mg PO Q8H [facility] Last Admin: 07/05/18 06:43 Dose: 1,000 mg Al Hydroxide/Mg Hydroxide (Mag-Al Susp) 30 ml PO Q6H PRN PRN Reason: Heartburn Last Admin: 06/08/18 08:31 Dose: 30 ml Aspirin (Halfprin) 81 mg PO BEDTIME [facility] Last Admin: 07/04/18 20:22 Dose: 81 mg Bisacodyl (Dulcolax) 10 mg RECTAL DAILY PRN PRN Reason: Constipation Last Admin: 06/16/18 14:13 Dose: 10 mg Docusate Sodium (Colace) 100 mg PO DAILY [facility] Last Admin: 07/04/18 08:54 Dose: 100 mg Multivitamins/Minerals (Centrum) 1 tab PO DAILY [facility] Last Admin: 07/04/18 08:54 Dose: 1 tab Allopurinol 100 Mg (Tab) 1 each PO DAILY [facility] Last Admin: 07/04/18 08:54 Dose: 1 each Simvastatin 20 Mg (Tab) 1 each PO BEDTIME [facility] Last Admin: 07/04/18 20:22 Dose: 1 each Prochlorperazine 10 (Mg Tab) 1 each PO QID PRN PRN Reason: Nausea Last Admin: 07/02/18 18:39 Dose: 1 each Furosemide 20 Mg Tab 1 each PO DAILY@0700 [facility] Last Admin: 07/05/18 06:43 Dose: 1 each Sertraline 100 Mg (Tab) 1.5 each PO BEDTIME [facility] Last Admin: 07/04/18 20:23 Dose: 1.5 each Omeprazole 20 Mg Cap (.Cr) 1 each PO BID@0600,1700 [facility] Last Admin: 07/05/18 06:44 Dose: 1 each Naloxegol Oxalate 25 (Mg Tab) 1 each PO DAILY [facility] Last Admin: 07/04/18 08:52 Dose: 1 each Bupropion 150 Mg Tab (.Er) 1 each PO DAILY [facility] Last Admin: 07/04/18 08:53 Dose: 1 each Oxycodone Er 10 Mg (Tab.Er) 1 each PO Q12H [facility] Last Admin: 05/31/18 08:22 Dose: 1 each Oxycodone 5 Mg Tab 5 each PO Q6H PRN PRN Reason: Pain Last Admin: 06/30/18 14:25 Dose: 5 each Diclofenac Sodium 1% (Gel 100 Gm Tube) 1 each TOP QID PRN PRN Reason: Pain Last Admin: 06/22/18 07:53 Dose: 1 each Rozerem 8mg Tablet 1 each PO BEDTIME [facility] Last Admin: 07/04/18 20:23 Dose: 1 each Alprazolam 0.25 Mg (Tab) 1 each PO Q8H PRN PRN Reason: Anxiety Chlorthalidone 25 Mg (Tab) 0.5 each PO DAILY [facility] Last Admin: 07/04/18 08:52 Dose: 0.5 each Nystatin Topical (Powder 15 Gm Bottle) 0 each TOP DAILY [facility] Last Admin: 07/04/18 08:58 Dose: 1 each Nystatin Topical (Powder 15 Gm Bottle) 0 each TOP TID PRN PRN Reason: Rash Last Admin: 05/23/18 08:55 Dose: 1 each Losartan 100mg Tab 1 each PO BEDTIME [facility] Last Admin: 07/04/18 20:23 Dose: 1 each Amlodipine 5mg 1 each PO BEDTIME [facility] Last Admin: 07/04/18 20:23 Dose: 1 each Metoprolol 100mg Tab 0.25 each PO BID [facility] Last Admin: 07/04/18 20:24 Dose: Not Given Ondansetron 8mg Odt (Tab) 1 each PO TIDAC [facility] Last Admin: 07/05/18 06:44 Dose: 1 each Insulin Detemir 100 (Units/Ml 3 Ml Pen) 28 each SUBCUT DAILY [facility] Last Admin: 07/04/18 08:55 Dose: 28 each Polyethylene Glycol (Miralax) 17 gm PO DAILY [facility] Last Admin: 07/04/18 08:58 Dose: 17 gm Polysaccharide Iron Complex (Ferrex 150) 150 mg PO Q48H [facility] Last Admin: 07/03/18 08:03 Dose: 150 mg Senna/Docusate Sodium (Senna Plus) 1 tab PO BEDTIME [facility] Last Admin: 07/04/18 20:22 Dose: 1 tab Simethicone (Simethicone) 80 mg PO Q6H PRN PRN Reason: Heartburn Last Admin: 06/30/18 14:25 Dose: 80 mg Zinc Gluconate (Zinc) 50 mg PO DAILY [facility] Last Admin: 07/04/18 09:03 Dose: 50 mg Discontinued Medications Acetaminophen (Tylenol Extra Strength) 1,000 mg PO Q8H [facility] Last Admin: 10/23/17 02:00 Dose: 1,000 mg Acetaminophen (Tylenol Extra Strength) 1,000 mg PO Q8H [facility] Last Admin: 11/22/17 15:12 Dose: 1,000 mg Acetaminophen (Tylenol) Confirm Administered Dose 975 mg .ROUTE .STK-MED ONE Stop: 11/08/17 07:36 Last Admin: 11/08/17 08:28 Dose: 975 mg Hydrocodone Bitart/Acetaminophen (Depue 325-5 Mg) 1 - 2 tab PO Q4H PRN PRN Reason: Moderate Pain Last Admin: 10/24/17 19:26 Dose: 1 tab Al Hydroxide/Mg Hydroxide (Mag-Al Susp) Confirm Administered Dose 30 ml .ROUTE .STK-MED ONE Stop: 01/09/18 21:49 Last Admin: 01/09/18 22:00 Dose: 30 ml Al Hydroxide/Mg Hydroxide (Mag-Al Susp) 30 ml PO Q6H PRN PRN Reason: Heartburn Last Admin: 01/09/18 22:00 Dose: 30 ml Allopurinol (Zyloprim) 100 mg PO DAILY [facility] Last Admin: 02/15/18 08:51 Dose: 100 mg Alprazolam (Xanax) 0.25 mg PO Q8H PRN PRN Reason: Anxiety Last Admin: 02/19/18 02:06 Dose: 0.25 mg Amlodipine Besylate (Norvasc) 5 mg PO DAILY [facility] Last Admin: 02/16/18 08:24 Dose: 5 mg Bacitracin (Bacitracin Oint) 1 gm TOP DAILY PRN PRN Reason: Rash Bisacodyl (Dulcolax) 10 mg RECTAL ONETIME ONE Stop: 12/21/17 04:02 Last Admin: 12/21/17 04:17 Dose: Not Given Bisacodyl (Dulcolax) Confirm Administered Dose 10 mg .ROUTE .STK-MED ONE Stop: 01/08/18 11:37 Last Admin: 01/08/18 16:15 Dose: Not Given Bupropion HCl (Wellbutrin Xl) 150 mg PO DAILY [facility] Last Admin: 02/16/18 08:22 Dose: 150 mg Calcium Carbonate/Glycine (Tums) 500 mg PO TID PRN PRN Reason: Indigestion Ciprofloxacin (Ciprofloxacin Hcl) 500 mg PO BID [facility] Stop: 12/24/17 21:01 Last Admin: 12/24/17 21:04 Dose: 500 mg Al Hydroxide/Mg Hydroxide 40 ml/ Diphenhydramine HCl 12.5 mg/ Lidocaine HCl 40 ml 0 ml PO TID PRN PRN Reason: mouth sores/burning Last Admin: 10/28/17 08:11 Dose: 10 ml Cranberry (Azo Cranberry) 1 each PO BEDTIME [facility] Last Admin: 11/07/17 21:46 Dose: Not Given Diclofenac Sodium (Voltaren 1% Gel) 1 gm TOP QID [facility] Last Admin: 01/26/18 08:10 Dose: Not Given Diclofenac Sodium (Voltaren 1% Gel) 1 gm TOP QID PRN PRN Reason: Pain Last Admin: 02/08/18 20:12 Dose: 1 applic Furosemide (Lasix) 20 mg PO DAILY [facility] Last Admin: 12/13/17 09:25 Dose: 20 mg Furosemide (Lasix) 20 mg PO SUTUTHSA@1700 [facility] Last Admin: 12/12/17 16:01 Dose: 20 mg Furosemide (Lasix) 20 mg PO SuTuThSa@1500 [facility] Last Admin: 02/13/18 14:52 Dose: 20 mg Furosemide (Lasix) 20 mg PO DAILY@0700 [facility] Last Admin: 02/15/18 06:44 Dose: 20 mg Furosemide (Lasix) Confirm Administered Dose 20 mg .ROUTE .[facility] ONE Stop: 04/03/18 06:35 Last Admin: 04/03/18 09:08 Dose: Not Given Heparin Sodium (Porcine) (Heparin Lock Flush 100 Units/Ml) 500 units FLUSH ASDIRECTED PRN PRN Reason: Other Cefepime HCl 1 gm/ Sodium (Chloride) 50 mls @ 100 mls/hr IV Q8H [facility] Last Admin: 11/01/17 18:52 Dose: Not Given Cefepime HCl 1 gm/ Sodium (Chloride) 50 mls @ 100 mls/hr IV Q24H [facility] Last Admin: 11/07/17 20:32 Dose: 100 mls/hr Sodium Chloride (Normal Saline) Confirm Administered Dose 50 mls @ as directed .ROUTE .[facility] ONE Stop: 11/02/17 22:10 Last Admin: 11/02/17 23:15 Dose: 100 mls/hr Sodium Chloride (Normal Saline) Confirm Administered Dose 50 mls @ as directed .ROUTE .[facility] ONE Stop: 11/03/17 21:46 Last Admin: 11/03/17 21:56 Dose: Not Given Sodium Chloride (Normal Saline) 50 mls @ 50 mls/hr IV ASDIRECTED [facility] Albumin Human (Flexbumin 25%) 100 mls @ 50 mls/hr IV ONETIME ONE Stop: 11/22/17 13:59 Last Admin: 11/22/17 13:07 Dose: 50 mls/hr Sodium Chloride (Normal Saline) 250 mls @ 125 mls/hr IV ASDIRECTED [facility] Stop: 11/22/17 21:00 Last Admin: 11/22/17 15:40 Dose: 125 mls/hr Ciprofloxacin/Dextrose (Cipro In D5w 400 Mg/200 Ml) 200 mls @ 200 mls/hr IV Q12H [facility] Last Admin: 11/26/17 06:13 Dose: 200 mls/hr Sodium Chloride (Normal Saline) Confirm Administered Dose 100 mls @ as directed .ROUTE .STK-MED ONE Stop: 11/22/17 20:04 Last Admin: 11/22/17 20:05 Dose: 100 mls/hr Sodium Chloride (Normal Saline) 100 mls @ 200 mls/hr IV ASDIRECTED [facility] Sodium Chloride (Normal Saline) 100 mls @ 20 mls/hr IV DAILY@1900 [facility] Last Admin: 11/25/17 18:08 Dose: 20 mls/hr Insulin Aspart (Novolog) 0 unit SUBCUT WITHMEALSANDBED [facility]; Protocol Stop: 10/31/17 00:00 Last Admin: 10/30/17 21:02 Dose: 5 units Insulin Aspart (Novolog) 2 unit SUBCUT ONETIME ONE Stop: 10/31/17 20:59 Last Admin: 10/31/17 21:07 Dose: 2 units Insulin Aspart (Novolog) 10 unit SUBCUT ONETIME ONE Stop: 11/12/17 17:44 Last Admin: 11/12/17 18:06 Dose: 10 units Insulin Aspart (Novolog) 0 unit SUBCUT TIDMEALS [facility]; Protocol Last Admin: 12/21/17 17:16 Dose: Not Given Insulin Detemir (Levemir) 44 unit SUBCUT DAILY [facility] Last Admin: 10/30/17 10:10 Dose: Not Given Insulin Detemir (Levemir) 40 unit SUBCUT DAILY [facility] Last Admin: 11/14/17 08:22 Dose: 40 units Insulin Detemir (Levemir) 44 unit SUBCUT DAILY [facility] Last Admin: 11/29/17 11:32 Dose: Not Given Insulin Detemir (Levemir) 34 unit SUBCUT DAILY [facility] Last Admin: 12/02/17 10:11 Dose: Not Given Insulin Detemir (Levemir) 30 unit SUBCUT DAILY [facility] Last Admin: 12/20/17 08:02 Dose: 30 units Insulin Detemir (Levemir) 40 unit SUBCUT DAILY [facility] Last Admin: 02/09/18 08:17 Dose: 40 units Insulin Detemir (Levemir) 10 unit SUBCUT ONETIME ONE Stop: 12/20/17 13:01 Last Admin: 12/20/17 14:38 Dose: 10 units Insulin Detemir (Levemir) 42 unit SUBCUT DAILY [facility] Last Admin: 02/16/18 08:24 Dose: 42 unit Lidocaine/Epinephrine (Xylocaine 1% With Epinephrine 1:100,000) 3 ml INJECT ONETIME ONE Stop: 11/05/17 09:01 Last Admin: 11/05/17 09:00 Dose: 3 ml Loperamide HCl (Imodium) 2 mg PO ASDIRECTED PRN PRN Reason: Diarrhea Last Admin: 11/30/17 05:53 Dose: 2 mg Lorazepam (Ativan) 0.25 mg PO Q8H PRN PRN Reason: Anxiety Last Admin: 12/13/17 18:03 Dose: 0.25 mg Lorazepam (Ativan) 0.25 mg PO Q8H PRN PRN Reason: Anxiety Losartan Potassium (Cozaar) 25 mg PO DAILY [facility] Last Admin: 11/27/17 09:05 Dose: 25 mg Losartan Potassium (Cozaar) 50 mg PO DAILY [facility] Last Admin: 12/25/17 08:57 Dose: 50 mg Losartan Potassium (Cozaar) 75 mg PO DAILY [facility] Last Admin: 01/17/18 08:26 Dose: 75 mg Losartan Potassium (Cozaar) 100 mg PO DAILY [facility] Last Admin: 02/16/18 08:24 Dose: 100 mg Magnesium Hydroxide (Milk Of Magnesia) 30 ml PO DAILY PRN PRN Reason: Constipation Last Admin: 10/26/17 09:10 Dose: 30 ml Melatonin (Melatonin) 6 mg PO BEDTIME [facility] Metoclopramide HCl (Reglan) 5 mg PO TIDAC [facility] Stop: 06/02/18 07:01 Metoprolol Tartrate (Lopressor) 50 mg PO BID [facility] Last Admin: 02/15/18 08:51 Dose: 50 mg Multivitamins/Minerals (Centrum) 1 tab PO DAILY [facility] Last Admin: 12/20/17 08:03 Dose: 1 tab Multivitamins/Minerals (Centrum) 1 tab PO DAILY@1200 [facility] Last Admin: 12/27/17 11:36 Dose: 1 tab Mupirocin (Bactroban Crm) 1 gm TOP TID [facility] Last Admin: 10/29/17 11:29 Dose: Not Given Mupirocin (Bactroban Oint) 0 gm TOP DAILY [facility] Last Admin: 12/06/17 10:12 Dose: 1 applic Naloxegol (Movantik) 25 mg PO DAILY [facility] Last Admin: 02/16/18 08:22 Dose: 25 mg Insulin Degludec ( (Tresiba) 44units) 44 units SUBCUT DAILY [facility] Nystatin (Nystop) 0 gm TOP BID [facility] Last Admin: 10/25/17 08:58 Dose: 1 applic Nystatin (Nystop) 0 gm TOP TID [facility] Last Admin: 10/26/17 11:15 Dose: Not Given Nystatin (Nystatin Ointment) 0 gm TOP TID [facility] Last Admin: 11/04/17 15:49 Dose: Not Given Nystatin (Nystatin Ointment) 1 gm TOP DAILY PRN PRN Reason: Rash Last Admin: 12/26/17 08:19 Dose: 1 applic Nystatin (Nystatin Ointment) 1 gm TOP BID [facility] Last Admin: 01/01/18 09:12 Dose: Not Given Nystatin (Nystatin Ointment) 1 gm TOP BID PRN PRN Reason: Rash Nystatin (Nystatin Ointment) 0 gm TOP BID PRN PRN Reason: Rash Nystatin (Nystop) 0 gm TOP TID [facility] Last Admin: 04/21/18 08:55 Dose: 1 applic Olanzapine (Zyprexa) 10 mg PO ASDIRECTED [facility] Olanzapine (Zyprexa) 10 mg PO BEDTIME [facility] Stop: 11/14/17 21:01 Last Admin: 11/14/17 21:28 Dose: 10 mg Olanzapine (Zyprexa) 10 mg PO BEDTIME [facility] Stop: 11/22/17 21:01 Last Admin: 11/22/17 21:41 Dose: 10 mg Omeprazole (Omeprazole) 20 mg PO SUTUTHSA@2100 [facility] Last Admin: 10/23/17 21:24 Dose: 20 mg Omeprazole (Omeprazole) 20 mg PO DAILY@2100 [facility] Last Admin: 12/11/17 20:18 Dose: 20 mg Omeprazole (Omeprazole) 20 mg PO BID [facility] Last Admin: 12/13/17 09:27 Dose: 20 mg Omeprazole (Omeprazole) 20 mg PO BIDAC [facility] Last Admin: 12/17/17 16:45 Dose: 20 mg Omeprazole (Omeprazole) 20 mg PO DAILY@0600,1700 [facility] Last Admin: 01/20/18 06:27 Dose: 20 mg Omeprazole (Omeprazole) 20 mg PO BID@0600,1700 [facility] Last Admin: 02/15/18 06:44 Dose: 20 mg Omeprazole (Omeprazole) Confirm Administered Dose 20 mg .ROUTE .STK-MED ONE Stop: 04/03/18 06:36 Last Admin: 04/03/18 09:08 Dose: Not Given Ondansetron HCl (Zofran Odt) 8 mg PO TID PRN PRN Reason: nausea or vomitting Last Admin: 01/26/18 17:53 Dose: 8 mg Oxycodone HCl (Oxycodone) 5 mg PO Q6H [facility] Last Admin: 10/23/17 06:11 Dose: 5 mg Oxycodone HCl (Oxycodone) 5 mg PO Q6H [facility] Last Admin: 10/24/17 06:21 Dose: Not Given Oxycodone HCl (Oxycodone) 5 mg PO Q6H PRN PRN Reason: Pain Last Admin: 02/14/18 13:38 Dose: 5 mg Oxycodone HCl (Oxycodone) 5 mg PO BEDTIME [facility] Last Admin: 12/07/17 20:02 Dose: 5 mg Oxycodone HCl (Oxycodone) 5 mg PO ONETIME ONE Stop: 11/23/17 18:12 Last Admin: 11/23/17 18:48 Dose: 5 mg Oxycodone HCl (Oxycodone) 7.5 mg PO BEDTIME [facility] Stop: 12/13/17 23:00 Last Admin: 12/13/17 20:05 Dose: 7.5 mg Oxycodone HCl (Oxycodone) 5 mg PO ONETIME ONE Stop: 12/13/17 17:59 Last Admin: 12/13/17 18:21 Dose: 5 mg Oxycodone HCl (Oxycontin) 10 mg PO Q12H [facility] Last Admin: 02/16/18 08:22 Dose: 10 mg Oxycodone HCl (Oxycontin) Confirm Administered Dose 10 mg .ROUTE .STK-MED ONE Stop: 12/31/17 11:25 Last Admin: 12/31/17 11:26 Dose: 10 mg Metoprolol Tartrate (100 Mg Tab) 0.5 each PO BID [facility] Last Admin: 05/22/18 21:36 Dose: Not Given Furosemide 20 Mg Tab 1 each PO SuTuThSa@1500 [facility] Stop: 06/20/18 09:00 Last Admin: 06/19/18 15:56 Dose: 1 each Ondansetron 4 Mg Tab 2 each PO TID PRN PRN Reason: nausea or vomitting Last Admin: 06/12/18 17:44 Dose: 2 each Losartan 100 Mg Tab 1 each PO DAILY [facility] Last Admin: 04/29/18 08:58 Dose: 1 each Amlodipine 5 Mg Tab 5 each PO DAILY [facility] Last Admin: 03/07/18 08:22 Dose: 5 each Insulin Detemir 100 (Units/Ml 3 Ml Pen) 42 each SUBCUT DAILY [facility] Last Admin: 04/11/18 09:00 Dose: 42 each Nystatin Cream 30gm (Tube) 1 each TOP BID PRN PRN Reason: Rash Last Admin: 04/07/18 11:25 Dose: 1 each Amlodipine 5 Mg Tab 1 each PO DAILY [facility] Last Admin: 05/14/18 08:18 Dose: 1 each Insulin Detemir 100 (Units/Ml 3 Ml Pen) 38 each SUBCUT DAILY [facility] Last Admin: 05/14/18 08:17 Dose: 38 each Insulin Detemir 100 (Units/Ml 3ml) 32 each SUBCUT DAILY [facility] Last Admin: 06/19/18 08:20 Dose: 32 each Metoclopramide 5mg (Tab) 5 each PO TIDAC [facility] Stop: 06/02/18 07:01 Metoclopramide 5mg (Tab) 1 each PO TIDAC [facility] Stop: 06/02/18 07:01 Last Admin: 06/02/18 06:08 Dose: 1 each Metoclopramide 5 Mg (Tab) 1 each PO Q8HR [facility] Stop: 06/03/18 22:01 Last Admin: 06/03/18 21:57 Dose: 1 each Ondansetron 4 Mg Tab 2 each PO TIDAC [facility] Stop: 06/15/18 17:01 Last Admin: 06/15/18 17:25 Dose: 2 each Polyethylene Glycol (Miralax) 17 gm PO DAILY PRN PRN Reason: Constipation Last Admin: 06/07/18 20:26 Dose: 17 gm Polysaccharide Iron Complex (Ferrex 150) 150 mg PO DAILY [facility] Last Admin: 12/20/17 08:05 Dose: 150 mg Polysaccharide Iron Complex (Ferrex 150) 150 mg PO DAILY@1200 [facility] Last Admin: 12/27/17 11:36 Dose: 150 mg Polysaccharide Iron Complex (Ferrex 150) 150 mg PO DAILY [facility] Last Admin: 02/09/18 08:17 Dose: 150 mg Polysaccharide Iron Complex (Ferrex 150) 150 mg PO Q48H [facility] Last Admin: 02/09/18 11:46 Dose: Not Given Prochlorperazine Maleate (Compazine) 10 mg PO QID PRN PRN Reason: Nausea Prochlorperazine Maleate (Compazine) 10 mg PO QID PRN PRN Reason: Nausea Last Admin: 01/16/18 20:25 Dose: 10 mg Promethazine HCl (Phenergan) 25 mg IM Q6H PRN PRN Reason: Nausea Last Admin: 04/22/18 21:37 Dose: 25 mg Ramelteon (Rozerem) 8 mg PO BEDTIME [facility] Last Admin: 02/16/18 22:33 Dose: 8 mg Senna/Docusate Sodium (Senna Plus) 1 tab PO BID PRN PRN Reason: Constipation Last Admin: 10/28/17 08:08 Dose: 1 tab Senna/Docusate Sodium (Senna Plus) 1 tab PO BID [facility] Last Admin: 11/04/17 15:49 Dose: Not Given Senna/Docusate Sodium (Senna Plus) 1 - 2 tab PO DAILY PRN PRN Reason: Constipation Sertraline HCl (Zoloft) 100 mg PO BEDTIME [facility] Last Admin: 01/07/18 20:58 Dose: 100 mg Sertraline HCl (Zoloft) 150 mg PO BEDTIME [facility] Last Admin: 02/14/18 20:02 Dose: 150 mg Simvastatin (Zocor) 40 mg PO BEDTIME [facility] Last Admin: 02/14/18 20:03 Dose: 40 mg Sodium Chloride ([place] Nasal [place]) 1 ml ALDO QID PRN PRN Reason: Dryness Last Admin: 11/12/17 21:03 Dose: 1 spray Sodium Chloride (Normal Saline) 20 ml FLUSH ASDIRECTED PRN PRN Reason: Other Sodium Chloride (Saline Flush) 20 ml FLUSH Q8H [facility] Last Admin: 11/02/17 10:46 Dose: Not Given Sodium Chloride (Saline Flush) 20 ml FLUSH Q8H [facility] Last Admin: 11/11/17 12:20 Dose: Not Given Zinc Gluconate (Zinc) 50 mg PO DAILY [facility] Last Admin: 12/20/17 08:05 Dose: 50 mg Zinc Gluconate (Zinc) 50 mg PO DAILY@1200 [facility] Last Admin: 12/27/17 11:35 Dose: 50 mg - Problem List Review Problem List Initiated/Reviewed/Updated: Yes - Plan Plan:: HPI: This is a 76 year old female who had previously been in swing bed status due to a left humeral fracture and deconditioning. The patient has been recently diagnosed with peritoneal carcinomatosis. The patient was sent up to [facility] on 10/20/17 for abdominal paracentesis and pleurx catheter placement. She had labs done that day which showed a hemoglobin of 6.5. She was then admitted to their hospitalist services. She was given 2 units of PRBCs. She was due for her second cycle of carboplatin and taxol while there and this was completed on 10/21/17. She was also given Neulasta prior to discharge. The patient was admitted back to swing bed status for rehabilitation of her fracture and deconditioning. Update, patient does have new symptoms of GI disturbance with mild nausea and mild abdominal pain mid epigastric after eating. Currently on PPI therapy. PRIMARY HOSPITAL PROBLEMS Left humeral head fracture. Patient with periodic pain however mainly on movement/PT manipulation She does have significant limitations in her left arm with almost no ability to abduct 30 however ongoing physical therapy is assisting with ROM and strengthening. Stage IV pressure ulcer to coccyx, no signs and symptoms of infection, healing slowly. No longer receiving NPWT due to observed undermining/sinus tracking in wound, and the need for repeated sharps debridement, along with little to no drainage. Decubitus ulcer good granulation base coccyx, 2 cm superior tracking , healing however very slow, signs of infection Deconditioning. Has greatly improved, Continue physical therapy right bicipital tendon rupture. Cont PT, no further tx due to condition/co- morbities, age, occupation Nausea, Hold schedule narcotics, Ensure PPI on empty stomach, low-dose Reglan 2 days, acids, may consider trail of Urosodial. SECONDARY ASSESSMENT/PLAN: Malignant ascites. PleurX catheter clogged. Unsuccessful attempt upon removing in the past. Anemia due to antineoplastic chemotherapy. recent hemoglobin Hgb stable at 12.3. Anxiety, very stable, Much improved affect Primary peritoneal carcinomatosis. Followed by Dr. Collier/oncology with ongoing Pleurx abdominal drain however is clogged. History of endometrial cancer, s/p hysterceomty 2009. CAD, no ischemic picture, stable. Immunocompromised host. No fever no infectious process. HTN. Continue lopressor and losartan and Norvasc 5 mg Aortic stenosis. History of atrial flutter. T2dm 2 DM. Adequate fasting Accuchecks daily. Tresiba switched to levemir daily due to not being available in house. 42 units CKD stage 3. Creatinine acceptable Hyperlipidemia. Continue simvastatin. Obesity. Gout. Continue allopurinol 100 mg daily. Diabetic retinopathy. Depression. Continue zoloft. GERD. Continue omeprazole bid, limit fluids during meals, patient positioning after meals OAB. Osteoarthritis. History of hypercalcemia. Recent Hypoalbuminemia. DVT prophylaxis. Score of 6, Continue with phan stockings. Overall plan: Continue an SNF with PT. Continue with physical therapy with left humeral exercises. For her nausea, Hold schedule narcotics, Ensure PPI on empty stomach, low-dose Reglan 2 days, acids, may consider trail of Urosodial.
[2018-07-05] MEDS: METOPROLOL 100 MG PO SCH ×2 (09:51→20:39)
[2018-07-05] MEDS: Insulin Detemir 100 Units/ML 3 ML Pen SUBCUT SCH (09:51)
[2018-07-05] MEDS: Chlorthalidone 25 MG Tab PO SCH (09:52)
[2018-07-05] MEDS: Naloxegol Oxalate 25 MG Tab PO SCH (09:52)
[2018-07-05] MEDS: Docusate Sodium 100 MG Cap PO SCH (09:52)
[2018-07-05] MEDS: buPROPion 150 MG Tab.ER PO SCH (09:52)
[2018-07-05] MEDS: Multivitamins with Minerals/Iron/Folic Acid/Lycopene Tab PO SCH (09:52)
[2018-07-05] MEDS: Allopurinol 100 MG Tab PO SCH (09:52)
[2018-07-05] MEDS: Zinc (Zinc Gluconate) 50 MG Tab PO SCH (09:53)
[2018-07-05] MEDS: Nystatin Topical Powder 15 GM Bottle TOP SCH (09:54)
[2018-07-05] MEDS: Polyethylene Glycol 3350 Powder 17 GM Packet PO SCH (09:54)
[2018-07-05] MEDS: Iron Polysaccharides Complex 150 MG Cap PO SCH (09:56)
[2018-07-05] MEDS: oxyCODONE 5 MG Tab PO PRN (10:11)
[2018-07-05] MEDS: Aspirin 81 MG Tab.EC PO SCH (20:39)
[2018-07-05] MEDS: Simvastatin 20 MG Tab PO SCH (20:39)
[2018-07-05] MEDS: Sertraline 100 MG Tab PO SCH (20:40)
[2018-07-05] MEDS: ROZEREM 8 MG PO SCH (20:40)
[2018-07-06] MEDS: Omeprazole 20 MG Cap.CR PO SCH ×2 (05:49→16:51)
[2018-07-06] MEDS: Furosemide 20 MG Tab PO SCH ×2 (05:49→06:09)
[2018-07-06] MEDS: ONDANSETRON 8 MG PO SCH ×4 (05:50→16:51)
[2018-07-06] MEDS: Acetaminophen 500 MG Tab PO SCH ×4 (05:50→21:59)
[2018-07-06] MEDS: Zinc (Zinc Gluconate) 50 MG Tab PO SCH (08:27)
[2018-07-06] MEDS: Multivitamins with Minerals/Iron/Folic Acid/Lycopene Tab PO SCH (08:27)
[2018-07-06] MEDS: Docusate Sodium 100 MG Cap PO SCH (08:27)
[2018-07-06] MEDS: Polyethylene Glycol 3350 Powder 17 GM Packet PO SCH (08:29)
[2018-07-06] MEDS: Chlorthalidone 25 MG Tab PO SCH (08:30)
[2018-07-06] MEDS: buPROPion 150 MG Tab.ER PO SCH (08:30)
[2018-07-06] MEDS: Naloxegol Oxalate 25 MG Tab PO SCH (08:31)
[2018-07-06] MEDS: Nystatin Topical Powder 15 GM Bottle TOP SCH (08:31)
[2018-07-06] MEDS: Insulin Detemir 100 Units/ML 3 ML Pen SUBCUT SCH (08:31)
[2018-07-06] MEDS: METOPROLOL 100 MG PO SCH ×2 (08:31→20:32)
[2018-07-06] MEDS: Allopurinol 100 MG Tab PO SCH (08:31)
[2018-07-06] MEDS: Aspirin 81 MG Tab.EC PO SCH (20:30)
[2018-07-06] MEDS: ROZEREM 8 MG PO SCH (20:32)
[2018-07-06] MEDS: Sertraline 100 MG Tab PO SCH (20:33)
[2018-07-06] MEDS: Simvastatin 20 MG Tab PO SCH (20:34)
[2018-07-07] MEDS: Acetaminophen 500 MG Tab PO SCH ×4 (06:05→23:50)
[2018-07-07] MEDS: ONDANSETRON 8 MG PO SCH ×3 (06:06→17:22)
[2018-07-07] MEDS: Furosemide 20 MG Tab PO SCH (06:06)
[2018-07-07] MEDS: Omeprazole 20 MG Cap.CR PO SCH ×2 (06:07→17:22)
[2018-07-07] MEDS: Zinc (Zinc Gluconate) 50 MG Tab PO SCH (08:40)
[2018-07-07] MEDS: Allopurinol 100 MG Tab PO SCH (08:40)
[2018-07-07] MEDS: METOPROLOL 100 MG PO SCH ×2 (08:40→20:58)
[2018-07-07] MEDS: Docusate Sodium 100 MG Cap PO SCH (08:40)
[2018-07-07] MEDS: Multivitamins with Minerals/Iron/Folic Acid/Lycopene Tab PO SCH (08:40)
[2018-07-07] MEDS: Chlorthalidone 25 MG Tab PO SCH (08:40)
[2018-07-07] MEDS: Iron Polysaccharides Complex 150 MG Cap PO SCH (08:40)
[2018-07-07] MEDS: buPROPion 150 MG Tab.ER PO SCH (08:41)
[2018-07-07] MEDS: Naloxegol Oxalate 25 MG Tab PO SCH (08:41)
[2018-07-07] MEDS: Polyethylene Glycol 3350 Powder 17 GM Packet PO SCH (08:42)
[2018-07-07] MEDS: Insulin Detemir 100 Units/ML 3 ML Pen SUBCUT SCH (08:42)
[2018-07-07] MEDS: Nystatin Topical Powder 15 GM Bottle TOP SCH (08:42)
[2018-07-07] MEDS: Bisacodyl 10 MG Supp RECTAL PRN (08:44)
[2018-07-07] MEDS: Aspirin 81 MG Tab.EC PO SCH (20:54)
[2018-07-07] MEDS: ROZEREM 8 MG PO SCH (20:55)
[2018-07-07] MEDS: Sertraline 100 MG Tab PO SCH (20:56)
[2018-07-07] MEDS: Simvastatin 20 MG Tab PO SCH (20:56)
[2018-07-08] MEDS: oxyCODONE 5 MG Tab PO PRN (05:58)
[2018-07-08] MEDS: Omeprazole 20 MG Cap.CR PO SCH ×2 (05:59→17:27)
[2018-07-08] MEDS: Acetaminophen 500 MG Tab PO SCH ×2 (06:00→15:51)
[2018-07-08] MEDS: Furosemide 20 MG Tab PO SCH (06:01)
[2018-07-08] MEDS: ONDANSETRON 8 MG PO SCH ×3 (06:05→17:27)
[2018-07-08] MEDS: Zinc (Zinc Gluconate) 50 MG Tab PO SCH (09:06)
[2018-07-08] MEDS: Multivitamins with Minerals/Iron/Folic Acid/Lycopene Tab PO SCH (09:06)
[2018-07-08] MEDS: Docusate Sodium 100 MG Cap PO SCH (09:06)
[2018-07-08] MEDS: Polyethylene Glycol 3350 Powder 17 GM Packet PO SCH (09:06)
[2018-07-08] MEDS: Insulin Detemir 100 Units/ML 3 ML Pen SUBCUT SCH (09:08)
[2018-07-08] MEDS: buPROPion 150 MG Tab.ER PO SCH (09:10)
[2018-07-08] MEDS: Naloxegol Oxalate 25 MG Tab PO SCH (09:10)
[2018-07-08] MEDS: Allopurinol 100 MG Tab PO SCH (09:10)
[2018-07-08] MEDS: Chlorthalidone 25 MG Tab PO SCH (09:10)
[2018-07-08] MEDS: METOPROLOL 100 MG PO SCH ×2 (09:11→20:24)
[2018-07-08] MEDS: Nystatin Topical Powder 15 GM Bottle TOP SCH (09:11)
[2018-07-08] MEDS: Aspirin 81 MG Tab.EC PO SCH (20:22)
[2018-07-08] MEDS: Simvastatin 20 MG Tab PO SCH (20:22)
[2018-07-08] MEDS: ROZEREM 8 MG PO SCH (20:23)
[2018-07-08] MEDS: Sertraline 100 MG Tab PO SCH (20:23)
[2018-07-09] MEDS: Acetaminophen 500 MG Tab PO SCH ×3 (01:29→15:34)
[2018-07-09] MEDS: Furosemide 20 MG Tab PO SCH (06:12)
[2018-07-09] MEDS: Omeprazole 20 MG Cap.CR PO SCH ×2 (06:12→17:15)
[2018-07-09] MEDS: ONDANSETRON 8 MG PO SCH ×3 (06:13→17:15)
[2018-07-09] MEDS: Docusate Sodium 100 MG Cap PO SCH (08:20)
[2018-07-09] MEDS: Zinc (Zinc Gluconate) 50 MG Tab PO SCH (08:20)
[2018-07-09] MEDS: Insulin Detemir 100 Units/ML 3 ML Pen SUBCUT SCH (08:20)
[2018-07-09] MEDS: Iron Polysaccharides Complex 150 MG Cap PO SCH (08:20)
[2018-07-09] MEDS: Multivitamins with Minerals/Iron/Folic Acid/Lycopene Tab PO SCH (08:20)
[2018-07-09] MEDS: buPROPion 150 MG Tab.ER PO SCH (08:21)
[2018-07-09] MEDS: METOPROLOL 100 MG PO SCH ×2 (08:21→20:24)
[2018-07-09] MEDS: Naloxegol Oxalate 25 MG Tab PO SCH (08:21)
[2018-07-09] MEDS: Chlorthalidone 25 MG Tab PO SCH (08:21)
[2018-07-09] MEDS: Allopurinol 100 MG Tab PO SCH (08:21)
[2018-07-09] MEDS: Polyethylene Glycol 3350 Powder 17 GM Packet PO SCH (09:11)
[2018-07-09] MEDS: Nystatin Topical Powder 15 GM Bottle TOP SCH (09:11)
[2018-07-09] MEDS: Prochlorperazine 10 MG Tab PO PRN (14:53)
[2018-07-09] MEDS: Aspirin 81 MG Tab.EC PO SCH (20:21)
[2018-07-09] MEDS: Sertraline 100 MG Tab PO SCH (20:24)
[2018-07-09] MEDS: ROZEREM 8 MG PO SCH (20:25)
[2018-07-09] MEDS: Simvastatin 20 MG Tab PO SCH (20:26)
[2018-07-10] MEDS: Acetaminophen 500 MG Tab PO SCH ×4 (01:14→23:47)
[2018-07-10] MEDS: Omeprazole 20 MG Cap.CR PO SCH ×2 (06:40→16:46)
[2018-07-10] MEDS: Furosemide 20 MG Tab PO SCH (06:40)
[2018-07-10] MEDS: ONDANSETRON 8 MG PO SCH ×3 (06:42→16:47)
[2018-07-10] MEDS: Multivitamins with Minerals/Iron/Folic Acid/Lycopene Tab PO SCH (08:46)
[2018-07-10] MEDS: Zinc (Zinc Gluconate) 50 MG Tab PO SCH (08:46)
[2018-07-10] MEDS: Docusate Sodium 100 MG Cap PO SCH (08:46)
[2018-07-10] MEDS: Naloxegol Oxalate 25 MG Tab PO SCH (08:46)
[2018-07-10] MEDS: Polyethylene Glycol 3350 Powder 17 GM Packet PO SCH (08:47)
[2018-07-10] MEDS: Allopurinol 100 MG Tab PO SCH (08:47)
[2018-07-10] MEDS: buPROPion 150 MG Tab.ER PO SCH (08:47)
[2018-07-10] MEDS: Chlorthalidone 25 MG Tab PO SCH (08:47)
[2018-07-10] MEDS: Insulin Detemir 100 Units/ML 3 ML Pen SUBCUT SCH (08:48)
[2018-07-10] MEDS: Nystatin Topical Powder 15 GM Bottle TOP SCH (08:48)
[2018-07-10] MEDS: METOPROLOL 100 MG PO SCH ×2 (08:50→20:50)
[2018-07-10] MEDS: Aspirin 81 MG Tab.EC PO SCH (20:45)
[2018-07-10] MEDS: Simvastatin 20 MG Tab PO SCH (20:45)
[2018-07-10] MEDS: ROZEREM 8 MG PO SCH (20:46)
[2018-07-10] MEDS: Sertraline 100 MG Tab PO SCH (20:46)
[2018-07-11] MEDS: Furosemide 20 MG Tab PO SCH (06:41)
[2018-07-11] MEDS: Omeprazole 20 MG Cap.CR PO SCH ×2 (06:41→18:18)
[2018-07-11] MEDS: ONDANSETRON 8 MG PO SCH ×3 (06:41→18:18)
[2018-07-11] MEDS: Acetaminophen 500 MG Tab PO SCH ×2 (06:41→17:47)
[2018-07-11] MEDS: Prochlorperazine 10 MG Tab PO PRN (08:57)
[2018-07-11] MEDS: METOPROLOL 100 MG PO SCH ×2 (08:59→21:22)
[2018-07-11] MEDS: Zinc (Zinc Gluconate) 50 MG Tab PO SCH (08:59)
[2018-07-11] MEDS: Docusate Sodium 100 MG Cap PO SCH (08:59)
[2018-07-11] MEDS: Chlorthalidone 25 MG Tab PO SCH (09:00)
[2018-07-11] MEDS: Multivitamins with Minerals/Iron/Folic Acid/Lycopene Tab PO SCH (09:00)
[2018-07-11] MEDS: buPROPion 150 MG Tab.ER PO SCH (09:00)
[2018-07-11] MEDS: Allopurinol 100 MG Tab PO SCH (09:00)
[2018-07-11] MEDS: Nystatin Topical Powder 15 GM Bottle TOP SCH (09:01)
[2018-07-11] MEDS: Naloxegol Oxalate 25 MG Tab PO SCH (09:01)
[2018-07-11] MEDS: Insulin Detemir 100 Units/ML 3 ML Pen SUBCUT SCH (09:02)
[2018-07-11] MEDS: Polyethylene Glycol 3350 Powder 17 GM Packet PO SCH (09:03)
[2018-07-11] MEDS: Iron Polysaccharides Complex 150 MG Cap PO SCH (09:08)
[2018-07-11] MEDS: Simethicone 80 MG Tab.Chew PO PRN (11:41)
[2018-07-11] MEDS: Aspirin 81 MG Tab.EC PO SCH (21:17)
[2018-07-11] MEDS: Simvastatin 20 MG Tab PO SCH (21:18)
[2018-07-11] MEDS: Sertraline 100 MG Tab PO SCH (21:19)
[2018-07-11] MEDS: ROZEREM 8 MG PO SCH (21:19)
[2018-07-12] MEDS: Acetaminophen 500 MG Tab PO SCH ×4 (02:00→23:36)
[2018-07-12] MEDS: ONDANSETRON 8 MG PO SCH ×3 (06:24→17:35)
[2018-07-12] MEDS: Omeprazole 20 MG Cap.CR PO SCH ×2 (06:24→17:35)
[2018-07-12] MEDS: Furosemide 20 MG Tab PO SCH (06:24)
[2018-07-12] MEDS: Zinc (Zinc Gluconate) 50 MG Tab PO SCH (08:02)
[2018-07-12] MEDS: Docusate Sodium 100 MG Cap PO SCH (08:02)
[2018-07-12] MEDS: METOPROLOL 100 MG PO SCH ×2 (08:02→20:48)
[2018-07-12] MEDS: Multivitamins with Minerals/Iron/Folic Acid/Lycopene Tab PO SCH (08:02)
[2018-07-12] MEDS: Aluminum Hydroxide/Magnesium Hydroxide Susp 30 ML Cup PO PRN (08:03)
[2018-07-12] MEDS: Insulin Detemir 100 Units/ML 3 ML Pen SUBCUT SCH (08:03)
[2018-07-12] MEDS: Naloxegol Oxalate 25 MG Tab PO SCH (08:05)
[2018-07-12] MEDS: Chlorthalidone 25 MG Tab PO SCH (08:05)
[2018-07-12] MEDS: Allopurinol 100 MG Tab PO SCH (08:05)
[2018-07-12] MEDS: buPROPion 150 MG Tab.ER PO SCH (08:05)
[2018-07-12] MEDS: Polyethylene Glycol 3350 Powder 17 GM Packet PO SCH (08:05)
[2018-07-12] MEDS: Nystatin Topical Powder 15 GM Bottle TOP SCH (08:07)
--- NOTE | 2018-07-12 10:07 | PCM.PN ---
- General Info Date of Service: 07/12/18 Functional Status: Reports: Pain Controlled, Tolerating Diet, Ambulating, New Symptoms (Newly requiring oxygen, shortness of breath on exertion, diminished lung sounds left penny) - Review of Systems General: Reports: Weakness. Denies: Fever HEENT: Reports: No Symptoms Pulmonary: Reports: Shortness of Breath. Denies: Pleuritic Chest Pain, Cough, Sputum Cardiovascular: Reports: Dyspnea on Exertion. Denies: Chest Pain, Palpitations , Orthopnea Gastrointestinal: Reports: No Symptoms Musculoskeletal: Reports: Shoulder Pain (Ongoing left shoulder pain) Neurological: Reports: No Symptoms Psychiatric: Reports: No Symptoms - Patient Data Vitals - Most Recent: Last Vital Signs Temp 98.2 F 07/12/18 06:53 Pulse 68 07/12/18 06:53 Resp 18 07/12/18 06:53 BP 159/71 H 07/12/18 06:53 Pulse Ox 93 L 07/12/18 06:53 Weight - Most Recent: 180 lb 9 oz I&O - Last 24 Hours: Intake & Output 07/11/18 07/12/18 07/12/18 22:59 06:59 14:59 Intake Total 400 0 Balance 400 0 Lab Results Last 24 Hours: Laboratory Results - last 24 hr 07/12/18 07/12/18 Range/Units 06:22 09:40 WBC 8.11 (5.00-10.00) 10^3/uL RBC 3.65 L (3.80-5.50) 10^6/uL Hgb 12.1 (12.0-16.0) g/dL Hct 37.4 (37.0-47.0) % MCV 102.5 H (82.0-92.0) fL MCH 33.2 H (27.0-31.0) pg MCHC 32.4 (32.0-36.0) g/dL RDW 13.3 (11.5-14.5) % Plt Count 135 L (150-400) 10^3/uL MPV 11.6 H (7.4-10.4) fL Immature Gran % (Auto) 0.1 (0.0-5.0) % Neut % (Auto) 75.0 H (50.0-70.0) % Lymph % (Auto) 16.2 L (20.0-40.0) % Park % (Auto) 6.8 (2.0-8.0) % Eos % (Auto) 1.5 (1.0-3.0) % Baso % (Auto) 0.4 (0.0-1.0) % Immature Gran # (Auto) 0.01 (0.00-0.50) 10^3/uL Neut # (Auto) 6.09 (2.50-7.00) 10^3/uL Lymph # (Auto) 1.31 (1.00-4.00) 10^3/uL Park # (Auto) 0.55 (0.10-0.80) 10^3/uL Eos # (Auto) 0.12 (0.10-0.30) 10^3/uL Baso # (Auto) 0.03 (0.00-0.10) 10^3/uL POC Glucose 89 (74-106) mg/dl Med Orders - Current: Current Medications Acetaminophen (Tylenol Extra Strength) 1,000 mg PO Q8H [facility] Last Admin: 07/12/18 06:23 Dose: 1,000 mg Al Hydroxide/Mg Hydroxide (Mag-Al Susp) 30 ml PO Q6H PRN PRN Reason: Heartburn Last Admin: 07/12/18 08:03 Dose: 30 ml Aspirin (Halfprin) 81 mg PO BEDTIME [facility] Last Admin: 07/11/18 21:17 Dose: 81 mg Bisacodyl (Dulcolax) 10 mg RECTAL DAILY PRN PRN Reason: Constipation Last Admin: 07/07/18 08:44 Dose: 10 mg Docusate Sodium (Colace) 100 mg PO DAILY [facility] Last Admin: 07/12/18 08:02 Dose: 100 mg Multivitamins/Minerals (Centrum) 1 tab PO DAILY [facility] Last Admin: 07/12/18 08:02 Dose: 1 tab Allopurinol 100 Mg (Tab) 1 each PO DAILY [facility] Last Admin: 07/12/18 08:05 Dose: 1 each Simvastatin 20 Mg (Tab) 1 each PO BEDTIME [facility] Last Admin: 07/11/18 21:18 Dose: 1 each Prochlorperazine 10 (Mg Tab) 1 each PO QID PRN PRN Reason: Nausea Last Admin: 07/11/18 08:57 Dose: 1 each Furosemide 20 Mg Tab 1 each PO DAILY@0700 [facility] Last Admin: 07/12/18 06:24 Dose: 1 each Sertraline 100 Mg (Tab) 1.5 each PO BEDTIME [facility] Last Admin: 07/11/18 21:19 Dose: 1.5 each Omeprazole 20 Mg Cap (.Cr) 1 each PO BID@0600,1700 [facility] Last Admin: 07/12/18 06:24 Dose: 1 each Naloxegol Oxalate 25 (Mg Tab) 1 each PO DAILY [facility] Last Admin: 07/12/18 08:05 Dose: 1 each Bupropion 150 Mg Tab (.Er) 1 each PO DAILY [facility] Last Admin: 07/12/18 08:05 Dose: 1 each Oxycodone Er 10 Mg (Tab.Er) 1 each PO Q12H [facility] Last Admin: 05/31/18 08:22 Dose: 1 each Oxycodone 5 Mg Tab 5 each PO Q6H PRN PRN Reason: Pain Last Admin: 07/08/18 05:58 Dose: 5 each Diclofenac Sodium 1% (Gel 100 Gm Tube) 1 each TOP QID PRN PRN Reason: Pain Last Admin: 06/22/18 07:53 Dose: 1 each Rozerem 8mg Tablet 1 each PO BEDTIME [facility] Last Admin: 07/11/18 21:19 Dose: 1 each Alprazolam 0.25 Mg (Tab) 1 each PO Q8H PRN PRN Reason: Anxiety Chlorthalidone 25 Mg (Tab) 0.5 each PO DAILY [facility] Last Admin: 07/12/18 08:05 Dose: 0.5 each Nystatin Topical (Powder 15 Gm Bottle) 0 each TOP DAILY [facility] Last Admin: 07/12/18 08:07 Dose: Not Given Nystatin Topical (Powder 15 Gm Bottle) 0 each TOP TID PRN PRN Reason: Rash Last Admin: 05/23/18 08:55 Dose: 1 each Losartan 100mg Tab 1 each PO BEDTIME [facility] Last Admin: 07/11/18 21:18 Dose: 1 each Amlodipine 5mg 1 each PO BEDTIME [facility] Last Admin: 07/11/18 21:18 Dose: 1 each Metoprolol 100mg Tab 0.25 each PO BID [facility] Last Admin: 07/12/18 08:02 Dose: 0.25 each Ondansetron 8mg Odt (Tab) 1 each PO TIDAC [facility] Last Admin: 07/12/18 06:24 Dose: 1 each Insulin Detemir 100 (Units/Ml 3 Ml Pen) 28 each SUBCUT DAILY [facility] Last Admin: 07/12/18 08:03 Dose: 28 each Polyethylene Glycol (Miralax) 17 gm PO DAILY [facility] Last Admin: 07/12/18 08:05 Dose: Not Given Polysaccharide Iron Complex (Ferrex 150) 150 mg PO Q48H [facility] Last Admin: 07/11/18 09:08 Dose: 150 mg Senna/Docusate Sodium (Senna Plus) 1 tab PO BEDTIME [facility] Last Admin: 07/11/18 21:18 Dose: 1 tab Simethicone (Simethicone) 80 mg PO Q6H PRN PRN Reason: Heartburn Last Admin: 07/11/18 11:41 Dose: 80 mg Zinc Gluconate (Zinc) 50 mg PO DAILY [facility] Last Admin: 07/12/18 08:02 Dose: 50 mg Discontinued Medications Acetaminophen (Tylenol Extra Strength) 1,000 mg PO Q8H [facility] Last Admin: 10/23/17 02:00 Dose: 1,000 mg Acetaminophen (Tylenol Extra Strength) 1,000 mg PO Q8H [facility] Last Admin: 11/22/17 15:12 Dose: 1,000 mg Acetaminophen (Tylenol) Confirm Administered Dose 975 mg .ROUTE .STK-MED ONE Stop: 11/08/17 07:36 Last Admin: 11/08/17 08:28 Dose: 975 mg Hydrocodone Bitart/Acetaminophen ([place] 325-5 Mg) 1 - 2 tab PO Q4H PRN PRN Reason: Moderate Pain Last Admin: 10/24/17 19:26 Dose: 1 tab Al Hydroxide/Mg Hydroxide (Mag-Al Susp) Confirm Administered Dose 30 ml .ROUTE .STK-MED ONE Stop: 01/09/18 21:49 Last Admin: 01/09/18 22:00 Dose: 30 ml Al Hydroxide/Mg Hydroxide (Mag-Al Susp) 30 ml PO Q6H PRN PRN Reason: Heartburn Last Admin: 01/09/18 22:00 Dose: 30 ml Allopurinol (Zyloprim) 100 mg PO DAILY [facility] Last Admin: 02/15/18 08:51 Dose: 100 mg Alprazolam (Xanax) 0.25 mg PO Q8H PRN PRN Reason: Anxiety Last Admin: 02/19/18 02:06 Dose: 0.25 mg Amlodipine Besylate (Norvasc) 5 mg PO DAILY [facility] Last Admin: 02/16/18 08:24 Dose: 5 mg Bacitracin (Bacitracin Oint) 1 gm TOP DAILY PRN PRN Reason: Rash Bisacodyl (Dulcolax) 10 mg RECTAL ONETIME ONE Stop: 12/21/17 04:02 Last Admin: 12/21/17 04:17 Dose: Not Given Bisacodyl (Dulcolax) Confirm Administered Dose 10 mg .ROUTE .STK-MED ONE Stop: 01/08/18 11:37 Last Admin: 01/08/18 16:15 Dose: Not Given Bupropion HCl (Wellbutrin Xl) 150 mg PO DAILY [facility] Last Admin: 02/16/18 08:22 Dose: 150 mg Calcium Carbonate/Glycine (Tums) 500 mg PO TID PRN PRN Reason: Indigestion Ciprofloxacin (Ciprofloxacin Hcl) 500 mg PO BID [facility] Stop: 12/24/17 21:01 Last Admin: 12/24/17 21:04 Dose: 500 mg Al Hydroxide/Mg Hydroxide 40 ml/ Diphenhydramine HCl 12.5 mg/ Lidocaine HCl 40 ml 0 ml PO TID PRN PRN Reason: mouth sores/burning Last Admin: 10/28/17 08:11 Dose: 10 ml Cranberry (Azo Cranberry) 1 each PO BEDTIME [facility] Last Admin: 11/07/17 21:46 Dose: Not Given Diclofenac Sodium (Voltaren 1% Gel) 1 gm TOP QID [facility] Last Admin: 01/26/18 08:10 Dose: Not Given Diclofenac Sodium (Voltaren 1% Gel) 1 gm TOP QID PRN PRN Reason: Pain Last Admin: 02/08/18 20:12 Dose: 1 applic Furosemide (Lasix) 20 mg PO DAILY [facility] Last Admin: 12/13/17 09:25 Dose: 20 mg Furosemide (Lasix) 20 mg PO SUTUTHSA@1700 [facility] Last Admin: 12/12/17 16:01 Dose: 20 mg Furosemide (Lasix) 20 mg PO SuTuThSa@1500 [facility] Last Admin: 02/13/18 14:52 Dose: 20 mg Furosemide (Lasix) 20 mg PO DAILY@0700 [facility] Last Admin: 02/15/18 06:44 Dose: 20 mg Furosemide (Lasix) Confirm Administered Dose 20 mg .ROUTE .[facility] ONE Stop: 04/03/18 06:35 Last Admin: 04/03/18 09:08 Dose: Not Given Heparin Sodium (Porcine) (Heparin Lock Flush 100 Units/Ml) 500 units FLUSH ASDIRECTED PRN PRN Reason: Other Cefepime HCl 1 gm/ Sodium (Chloride) 50 mls @ 100 mls/hr IV Q8H [facility] Last Admin: 11/01/17 18:52 Dose: Not Given Cefepime HCl 1 gm/ Sodium (Chloride) 50 mls @ 100 mls/hr IV Q24H [facility] Last Admin: 11/07/17 20:32 Dose: 100 mls/hr Sodium Chloride (Normal Saline) Confirm Administered Dose 50 mls @ as directed .ROUTE .[facility] ONE Stop: 11/02/17 22:10 Last Admin: 11/02/17 23:15 Dose: 100 mls/hr Sodium Chloride (Normal Saline) Confirm Administered Dose 50 mls @ as directed .ROUTE .[facility] ONE Stop: 11/03/17 21:46 Last Admin: 11/03/17 21:56 Dose: Not Given Sodium Chloride (Normal Saline) 50 mls @ 50 mls/hr IV ASDIRECTED [facility] Albumin Human (Flexbumin 25%) 100 mls @ 50 mls/hr IV ONETIME ONE Stop: 11/22/17 13:59 Last Admin: 11/22/17 13:07 Dose: 50 mls/hr Sodium Chloride (Normal Saline) 250 mls @ 125 mls/hr IV ASDIRECTED [facility] Stop: 11/22/17 21:00 Last Admin: 11/22/17 15:40 Dose: 125 mls/hr Ciprofloxacin/Dextrose (Cipro In D5w 400 Mg/200 Ml) 200 mls @ 200 mls/hr IV Q12H [facility] Last Admin: 11/26/17 06:13 Dose: 200 mls/hr Sodium Chloride (Normal Saline) Confirm Administered Dose 100 mls @ as directed .ROUTE .[facility] ONE Stop: 11/22/17 20:04 Last Admin: 11/22/17 20:05 Dose: 100 mls/hr Sodium Chloride (Normal Saline) 100 mls @ 200 mls/hr IV ASDIRECTED [facility] Sodium Chloride (Normal Saline) 100 mls @ 20 mls/hr IV DAILY@1900 [facility] Last Admin: 11/25/17 18:08 Dose: 20 mls/hr Insulin Aspart (Novolog) 0 unit SUBCUT WITHMEALSANDBED [facility]; Protocol Stop: 10/31/17 00:00 Last Admin: 10/30/17 21:02 Dose: 5 units Insulin Aspart (Novolog) 2 unit SUBCUT ONETIME ONE Stop: 10/31/17 20:59 Last Admin: 10/31/17 21:07 Dose: 2 units Insulin Aspart (Novolog) 10 unit SUBCUT ONETIME ONE Stop: 11/12/17 17:44 Last Admin: 11/12/17 18:06 Dose: 10 units Insulin Aspart (Novolog) 0 unit SUBCUT TIDMEALS [facility]; Protocol Last Admin: 12/21/17 17:16 Dose: Not Given Insulin Detemir (Levemir) 44 unit SUBCUT DAILY [facility] Last Admin: 10/30/17 10:10 Dose: Not Given Insulin Detemir (Levemir) 40 unit SUBCUT DAILY [facility] Last Admin: 11/14/17 08:22 Dose: 40 units Insulin Detemir (Levemir) 44 unit SUBCUT DAILY [facility] Last Admin: 11/29/17 11:32 Dose: Not Given Insulin Detemir (Levemir) 34 unit SUBCUT DAILY [facility] Last Admin: 12/02/17 10:11 Dose: Not Given Insulin Detemir (Levemir) 30 unit SUBCUT DAILY [facility] Last Admin: 12/20/17 08:02 Dose: 30 units Insulin Detemir (Levemir) 40 unit SUBCUT DAILY [facility] Last Admin: 02/09/18 08:17 Dose: 40 units Insulin Detemir (Levemir) 10 unit SUBCUT ONETIME ONE Stop: 12/20/17 13:01 Last Admin: 12/20/17 14:38 Dose: 10 units Insulin Detemir (Levemir) 42 unit SUBCUT DAILY [facility] Last Admin: 02/16/18 08:24 Dose: 42 unit Lidocaine/Epinephrine (Xylocaine 1% With Epinephrine 1:100,000) 3 ml INJECT ONETIME ONE Stop: 11/05/17 09:01 Last Admin: 11/05/17 09:00 Dose: 3 ml Loperamide HCl (Imodium) 2 mg PO ASDIRECTED PRN PRN Reason: Diarrhea Last Admin: 11/30/17 05:53 Dose: 2 mg Lorazepam (Ativan) 0.25 mg PO Q8H PRN PRN Reason: Anxiety Last Admin: 12/13/17 18:03 Dose: 0.25 mg Lorazepam (Ativan) 0.25 mg PO Q8H PRN PRN Reason: Anxiety Losartan Potassium (Cozaar) 25 mg PO DAILY [facility] Last Admin: 11/27/17 09:05 Dose: 25 mg Losartan Potassium (Cozaar) 50 mg PO DAILY [facility] Last Admin: 12/25/17 08:57 Dose: 50 mg Losartan Potassium (Cozaar) 75 mg PO DAILY [facility] Last Admin: 01/17/18 08:26 Dose: 75 mg Losartan Potassium (Cozaar) 100 mg PO DAILY [facility] Last Admin: 02/16/18 08:24 Dose: 100 mg Magnesium Hydroxide (Milk Of Magnesia) 30 ml PO DAILY PRN PRN Reason: Constipation Last Admin: 10/26/17 09:10 Dose: 30 ml Melatonin (Melatonin) 6 mg PO BEDTIME [facility] Metoclopramide HCl (Reglan) 5 mg PO TIDAC [facility] Stop: 06/02/18 07:01 Metoprolol Tartrate (Lopressor) 50 mg PO BID [facility] Last Admin: 02/15/18 08:51 Dose: 50 mg Multivitamins/Minerals (Centrum) 1 tab PO DAILY [facility] Last Admin: 12/20/17 08:03 Dose: 1 tab Multivitamins/Minerals (Centrum) 1 tab PO DAILY@1200 [facility] Last Admin: 12/27/17 11:36 Dose: 1 tab Mupirocin (Bactroban Crm) 1 gm TOP TID [facility] Last Admin: 10/29/17 11:29 Dose: Not Given Mupirocin (Bactroban Oint) 0 gm TOP DAILY [facility] Last Admin: 12/06/17 10:12 Dose: 1 applic Naloxegol (Movantik) 25 mg PO DAILY [facility] Last Admin: 02/16/18 08:22 Dose: 25 mg Insulin Degludec ( (Tresiba) 44units) 44 units SUBCUT DAILY [facility] Nystatin (Nystop) 0 gm TOP BID [facility] Last Admin: 10/25/17 08:58 Dose: 1 applic Nystatin (Nystop) 0 gm TOP TID [facility] Last Admin: 10/26/17 11:15 Dose: Not Given Nystatin (Nystatin Ointment) 0 gm TOP TID [facility] Last Admin: 11/04/17 15:49 Dose: Not Given Nystatin (Nystatin Ointment) 1 gm TOP DAILY PRN PRN Reason: Rash Last Admin: 12/26/17 08:19 Dose: 1 applic Nystatin (Nystatin Ointment) 1 gm TOP BID [facility] Last Admin: 01/01/18 09:12 Dose: Not Given Nystatin (Nystatin Ointment) 1 gm TOP BID PRN PRN Reason: Rash Nystatin (Nystatin Ointment) 0 gm TOP BID PRN PRN Reason: Rash Nystatin (Nystop) 0 gm TOP TID [facility] Last Admin: 04/21/18 08:55 Dose: 1 applic Olanzapine (Zyprexa) 10 mg PO ASDIRECTED [facility] Olanzapine (Zyprexa) 10 mg PO BEDTIME [facility] Stop: 11/14/17 21:01 Last Admin: 11/14/17 21:28 Dose: 10 mg Olanzapine (Zyprexa) 10 mg PO BEDTIME [facility] Stop: 11/22/17 21:01 Last Admin: 11/22/17 21:41 Dose: 10 mg Omeprazole (Omeprazole) 20 mg PO SUTUTHSA@2100 [facility] Last Admin: 10/23/17 21:24 Dose: 20 mg Omeprazole (Omeprazole) 20 mg PO DAILY@2100 [facility] Last Admin: 12/11/17 20:18 Dose: 20 mg Omeprazole (Omeprazole) 20 mg PO BID [facility] Last Admin: 12/13/17 09:27 Dose: 20 mg Omeprazole (Omeprazole) 20 mg PO BIDAC [facility] Last Admin: 12/17/17 16:45 Dose: 20 mg Omeprazole (Omeprazole) 20 mg PO DAILY@0600,1700 [facility] Last Admin: 01/20/18 06:27 Dose: 20 mg Omeprazole (Omeprazole) 20 mg PO BID@0600,1700 [facility] Last Admin: 02/15/18 06:44 Dose: 20 mg Omeprazole (Omeprazole) Confirm Administered Dose 20 mg .ROUTE .STK-MED ONE Stop: 04/03/18 06:36 Last Admin: 04/03/18 09:08 Dose: Not Given Ondansetron HCl (Zofran Odt) 8 mg PO TID PRN PRN Reason: nausea or vomitting Last Admin: 01/26/18 17:53 Dose: 8 mg Oxycodone HCl (Oxycodone) 5 mg PO Q6H [facility] Last Admin: 10/23/17 06:11 Dose: 5 mg Oxycodone HCl (Oxycodone) 5 mg PO Q6H [facility] Last Admin: 10/24/17 06:21 Dose: Not Given Oxycodone HCl (Oxycodone) 5 mg PO Q6H PRN PRN Reason: Pain Last Admin: 02/14/18 13:38 Dose: 5 mg Oxycodone HCl (Oxycodone) 5 mg PO BEDTIME [facility] Last Admin: 12/07/17 20:02 Dose: 5 mg Oxycodone HCl (Oxycodone) 5 mg PO ONETIME ONE Stop: 11/23/17 18:12 Last Admin: 11/23/17 18:48 Dose: 5 mg Oxycodone HCl (Oxycodone) 7.5 mg PO BEDTIME [facility] Stop: 12/13/17 23:00 Last Admin: 12/13/17 20:05 Dose: 7.5 mg Oxycodone HCl (Oxycodone) 5 mg PO ONETIME ONE Stop: 12/13/17 17:59 Last Admin: 12/13/17 18:21 Dose: 5 mg Oxycodone HCl (Oxycontin) 10 mg PO Q12H [facility] Last Admin: 02/16/18 08:22 Dose: 10 mg Oxycodone HCl (Oxycontin) Confirm Administered Dose 10 mg .ROUTE .STK-MED ONE Stop: 12/31/17 11:25 Last Admin: 12/31/17 11:26 Dose: 10 mg Metoprolol Tartrate (100 Mg Tab) 0.5 each PO BID [facility] Last Admin: 05/22/18 21:36 Dose: Not Given Furosemide 20 Mg Tab 1 each PO SuTuThSa@1500 [facility] Stop: 06/20/18 09:00 Last Admin: 06/19/18 15:56 Dose: 1 each Ondansetron 4 Mg Tab 2 each PO TID PRN PRN Reason: nausea or vomitting Last Admin: 06/12/18 17:44 Dose: 2 each Losartan 100 Mg Tab 1 each PO DAILY [facility] Last Admin: 04/29/18 08:58 Dose: 1 each Amlodipine 5 Mg Tab 5 each PO DAILY [facility] Last Admin: 03/07/18 08:22 Dose: 5 each Insulin Detemir 100 (Units/Ml 3 Ml Pen) 42 each SUBCUT DAILY [facility] Last Admin: 04/11/18 09:00 Dose: 42 each Nystatin Cream 30gm (Tube) 1 each TOP BID PRN PRN Reason: Rash Last Admin: 04/07/18 11:25 Dose: 1 each Amlodipine 5 Mg Tab 1 each PO DAILY [facility] Last Admin: 05/14/18 08:18 Dose: 1 each Insulin Detemir 100 (Units/Ml 3 Ml Pen) 38 each SUBCUT DAILY [facility] Last Admin: 05/14/18 08:17 Dose: 38 each Insulin Detemir 100 (Units/Ml 3ml) 32 each SUBCUT DAILY [facility] Last Admin: 06/19/18 08:20 Dose: 32 each Metoclopramide 5mg (Tab) 5 each PO TIDAC [facility] Stop: 06/02/18 07:01 Metoclopramide 5mg (Tab) 1 each PO TIDAC [facility] Stop: 06/02/18 07:01 Last Admin: 06/02/18 06:08 Dose: 1 each Metoclopramide 5 Mg (Tab) 1 each PO Q8HR [facility] Stop: 06/03/18 22:01 Last Admin: 06/03/18 21:57 Dose: 1 each Ondansetron 4 Mg Tab 2 each PO TIDAC [facility] Stop: 06/15/18 17:01 Last Admin: 06/15/18 17:25 Dose: 2 each Polyethylene Glycol (Miralax) 17 gm PO DAILY PRN PRN Reason: Constipation Last Admin: 06/07/18 20:26 Dose: 17 gm Polysaccharide Iron Complex (Ferrex 150) 150 mg PO DAILY [facility] Last Admin: 12/20/17 08:05 Dose: 150 mg Polysaccharide Iron Complex (Ferrex 150) 150 mg PO DAILY@1200 [facility] Last Admin: 12/27/17 11:36 Dose: 150 mg Polysaccharide Iron Complex (Ferrex 150) 150 mg PO DAILY [facility] Last Admin: 02/09/18 08:17 Dose: 150 mg Polysaccharide Iron Complex (Ferrex 150) 150 mg PO Q48H [facility] Last Admin: 02/09/18 11:46 Dose: Not Given Prochlorperazine Maleate (Compazine) 10 mg PO QID PRN PRN Reason: Nausea Prochlorperazine Maleate (Compazine) 10 mg PO QID PRN PRN Reason: Nausea Last Admin: 01/16/18 20:25 Dose: 10 mg Promethazine HCl (Phenergan) 25 mg IM Q6H PRN PRN Reason: Nausea Last Admin: 04/22/18 21:37 Dose: 25 mg Ramelteon (Rozerem) 8 mg PO BEDTIME [facility] Last Admin: 02/16/18 22:33 Dose: 8 mg Senna/Docusate Sodium (Senna Plus) 1 tab PO BID PRN PRN Reason: Constipation Last Admin: 10/28/17 08:08 Dose: 1 tab Senna/Docusate Sodium (Senna Plus) 1 tab PO BID [facility] Last Admin: 11/04/17 15:49 Dose: Not Given Senna/Docusate Sodium (Senna Plus) 1 - 2 tab PO DAILY PRN PRN Reason: Constipation Sertraline HCl (Zoloft) 100 mg PO BEDTIME [facility] Last Admin: 01/07/18 20:58 Dose: 100 mg Sertraline HCl (Zoloft) 150 mg PO BEDTIME [facility] Last Admin: 02/14/18 20:02 Dose: 150 mg Simvastatin (Zocor) 40 mg PO BEDTIME [facility] Last Admin: 02/14/18 20:03 Dose: 40 mg Sodium Chloride ([place] Nasal Dennis) 1 ml ALDO QID PRN PRN Reason: Dryness Last Admin: 11/12/17 21:03 Dose: 1 spray Sodium Chloride (Normal Saline) 20 ml FLUSH ASDIRECTED PRN PRN Reason: Other Sodium Chloride (Saline Flush) 20 ml FLUSH Q8H [facility] Last Admin: 11/02/17 10:46 Dose: Not Given Sodium Chloride (Saline Flush) 20 ml FLUSH Q8H [facility] Last Admin: 11/11/17 12:20 Dose: Not Given Zinc Gluconate (Zinc) 50 mg PO DAILY [facility] Last Admin: 12/20/17 08:05 Dose: 50 mg Zinc Gluconate (Zinc) 50 mg PO DAILY@1200 [facility] Last Admin: 12/27/17 11:35 Dose: 50 mg - Exam Quality Assessment: Supplemental Oxygen General: Alert, Oriented, Mild Distress Lungs: Decreased Breath Sounds (Significantly diminished breath sounds left lung penny ) Cardiovascular: Regular Rate, Regular Rhythm (Female) Exam: Deferred Extremities: No Pedal Edema Neurological: Normal Speech, Normal Tone Psy/Mental Status: Alert, Normal Affect, Normal Mood - Problem List Review Problem List Initiated/Reviewed/Updated: Yes - My Orders Last 24 Hours: My Active Orders 07/12/18 09:18 CXR [Chest 2V] [CR] Routine 07/12/18 09:40 BASIC METABOLIC PANEL,BMP [CHEM] Routine PROCALCITONIN [REF] Routine - Plan Plan:: HPI: This is a 76 year old female who had previously been in swing bed status due to a left humeral fracture and deconditioning. The patient has been recently diagnosed with peritoneal carcinomatosis. The patient was sent up to [facility] on 10/20/17 for abdominal paracentesis and pleurx catheter placement. She had labs done that day which showed a hemoglobin of 6.5. She was then admitted to their hospitalist services. She was given 2 units of PRBCs. She was due for her second cycle of carboplatin and taxol while there and this was completed on 10/21/17. She was also given Neulasta prior to discharge. The patient was admitted back to swing bed status for rehabilitation of her fracture and deconditioning. Update, newly requiring oxygen requirement at 2 L with lower saturations 93-96% , of long feels significantly diminished with some shortness of breath on mild ambulation. PRIMARY HOSPITAL PROBLEMS Shortness of breath on exertion, chest x-ray labs, pro-calcitonin Left humeral head fracture. Patient with periodic pain however mainly on movement/PT manipulation She does have significant limitations in her left arm with almost no ability to abduct 30 however ongoing physical therapy is assisting with ROM and strengthening. Stage IV pressure ulcer to coccyx, no signs and symptoms of infection, healing slowly. No longer receiving NPWT due to observed undermining/sinus tracking in wound, and the need for repeated sharps debridement, along with little to no drainage. Decubitus ulcer good granulation base coccyx, 2 cm superior tracking , healing however very slow, signs of infection Deconditioning. Has greatly improved, Continue physical therapy right bicipital tendon rupture. Cont PT, no further tx due to condition/co- morbities, age, occupation Nausea, Hold schedule narcotics, Ensure PPI on empty stomach, low-dose Reglan 2 days, acids, may consider trail of Urosodial. SECONDARY ASSESSMENT/PLAN: Malignant ascites. PleurX catheter clogged. Unsuccessful attempt upon removing in the past. Anemia due to antineoplastic chemotherapy. recent hemoglobin Hgb stable at 12.3. Anxiety, very stable, Much improved affect Primary peritoneal carcinomatosis. Followed by Dr. Collier/oncology with ongoing Pleurx abdominal drain however is clogged. History of endometrial cancer, s/p hysterceomty 2009. CAD, no ischemic picture, stable. Immunocompromised host. No fever no infectious process. HTN. Continue lopressor and losartan and Norvasc 5 mg Aortic stenosis. History of atrial flutter. T2dm 2 DM. Adequate fasting Accuchecks daily. Tresiba switched to levemir daily due to not being available in house. 42 units CKD stage 3. Creatinine acceptable Hyperlipidemia. Continue simvastatin. Obesity. Gout. Continue allopurinol 100 mg daily. Diabetic retinopathy. Depression. Continue zoloft. GERD. Continue omeprazole bid, limit fluids during meals, patient positioning after meals OAB. Osteoarthritis. History of hypercalcemia. Recent Hypoalbuminemia. DVT prophylaxis. Score of 6, Continue with phan stockings. Overall plan: Continue an SNF with PT. Continue with physical therapy with left humeral exercises. For her nausea, Hold schedule narcotics, Ensure PPI on empty stomach, low-dose Reglan 2 days, acids, may consider trail of Urosodial.
--- NOTE | 2018-07-12 11:09 | CR ---
[id number] RAD/RAD Chest PA And Lateral EXAM: RAD Chest PA And Lateral INDICATION: SHORTNESS OF BREATH. COMPARISON: November 22, 2017. DISCUSSION: Median sternotomy wires. Right chest wall Mediport. Cardiomediastinal silhouette is stable in size and contour. No infiltrate, pneumothorax, or edema. There is near complete opacification of the right lung which is new when compared to the prior study. Small left pleural effusion. IMPRESSION: Near complete opacification of the right hemithorax may represent a large pleural effusion. Underlying infiltrate could be obscured. Small left pleural effusion. Alden Carlisle DO 07/12/18 1107 Thank you for allowing us to participate in the care of your patient.
[2018-07-12] MEDS ORDERED: Furosemide 40 MG/4 ML VIAL IVPUSH ONE (11:30)
[2018-07-12] MEDS: ROZEREM 8 MG PO SCH (20:49)
[2018-07-12] MEDS: Aspirin 81 MG Tab.EC PO SCH (20:49)
[2018-07-12] MEDS: Sertraline 100 MG Tab PO SCH (20:50)
[2018-07-12] MEDS: Simvastatin 20 MG Tab PO SCH (20:50)
[2018-07-13] MEDS: Omeprazole 20 MG Cap.CR PO SCH ×2 (06:01→17:59)
[2018-07-13] MEDS: Acetaminophen 500 MG Tab PO SCH ×3 (06:01→22:24)
[2018-07-13] MEDS: ONDANSETRON 8 MG PO SCH ×3 (06:01→18:00)
[2018-07-13] MEDS: Furosemide 20 MG Tab PO SCH (06:01)
[2018-07-13] MEDS: Aluminum Hydroxide/Magnesium Hydroxide Susp 30 ML Cup PO PRN (07:51)
[2018-07-13] MEDS: Zinc (Zinc Gluconate) 50 MG Tab PO SCH (08:19)
[2018-07-13] MEDS: Insulin Detemir 100 Units/ML 3 ML Pen SUBCUT SCH (08:19)
[2018-07-13] MEDS: Polyethylene Glycol 3350 Powder 17 GM Packet PO SCH (08:20)
[2018-07-13] MEDS: Docusate Sodium 100 MG Cap PO SCH (08:20)
[2018-07-13] MEDS: Multivitamins with Minerals/Iron/Folic Acid/Lycopene Tab PO SCH (08:20)
[2018-07-13] MEDS: Iron Polysaccharides Complex 150 MG Cap PO SCH (08:20)
[2018-07-13] MEDS: Allopurinol 100 MG Tab PO SCH (08:21)
[2018-07-13] MEDS: Naloxegol Oxalate 25 MG Tab PO SCH (08:21)
[2018-07-13] MEDS: buPROPion 150 MG Tab.ER PO SCH (08:21)
[2018-07-13] MEDS: METOPROLOL 100 MG PO SCH ×2 (08:21→20:29)
[2018-07-13] MEDS: Nystatin Topical Powder 15 GM Bottle TOP SCH (08:22)
[2018-07-13] MEDS: Chlorthalidone 25 MG Tab PO SCH (08:22)
[2018-07-13] MEDS: Aspirin 81 MG Tab.EC PO SCH (20:28)
[2018-07-13] MEDS: Simvastatin 20 MG Tab PO SCH (20:28)
[2018-07-13] MEDS: ROZEREM 8 MG PO SCH (20:29)
[2018-07-13] MEDS: Sertraline 100 MG Tab PO SCH (20:30)
[2018-07-13] MEDS: oxyCODONE 5 MG Tab PO PRN (20:40)
[2018-07-14] MEDS: Furosemide 20 MG Tab PO SCH (06:14)
[2018-07-14] MEDS: Acetaminophen 500 MG Tab PO SCH ×3 (06:15→22:20)
[2018-07-14] MEDS: Omeprazole 20 MG Cap.CR PO SCH ×2 (06:15→18:31)
[2018-07-14] MEDS: ONDANSETRON 8 MG PO SCH ×3 (06:16→18:31)
[2018-07-14] MEDS: Docusate Sodium 100 MG Cap PO SCH (08:11)
[2018-07-14] MEDS: Zinc (Zinc Gluconate) 50 MG Tab PO SCH (08:11)
[2018-07-14] MEDS: Multivitamins with Minerals/Iron/Folic Acid/Lycopene Tab PO SCH (08:11)
[2018-07-14] MEDS: buPROPion 150 MG Tab.ER PO SCH (08:12)
[2018-07-14] MEDS: Chlorthalidone 25 MG Tab PO SCH (08:13)
[2018-07-14] MEDS: Naloxegol Oxalate 25 MG Tab PO SCH (08:14)
[2018-07-14] MEDS: METOPROLOL 100 MG PO SCH ×2 (08:14→21:26)
[2018-07-14] MEDS: Allopurinol 100 MG Tab PO SCH (08:14)
[2018-07-14] MEDS: Insulin Detemir 100 Units/ML 3 ML Pen SUBCUT SCH (08:15)
[2018-07-14] MEDS: Polyethylene Glycol 3350 Powder 17 GM Packet PO SCH (08:16)
[2018-07-14] MEDS: Nystatin Topical Powder 15 GM Bottle TOP SCH (08:16)
[2018-07-14] MEDS: Aluminum Hydroxide/Magnesium Hydroxide Susp 30 ML Cup PO PRN (18:34)
[2018-07-14] MEDS: Sertraline 100 MG Tab PO SCH (21:26)
[2018-07-14] MEDS: Simvastatin 20 MG Tab PO SCH (21:27)
[2018-07-14] MEDS: ROZEREM 8 MG PO SCH (21:27)
[2018-07-14] MEDS: Aspirin 81 MG Tab.EC PO SCH (21:28)
[2018-07-15] MEDS: Acetaminophen 500 MG Tab PO SCH ×2 (06:38→16:20)
[2018-07-15] MEDS: Furosemide 20 MG Tab PO SCH (06:39)
[2018-07-15] MEDS: ONDANSETRON 8 MG PO SCH ×3 (06:41→18:09)
[2018-07-15] MEDS ORDERED: Sodium Chloride 0.9% 10 ML Syringe FLUSH PRN (07:23)
[2018-07-15] MEDS: buPROPion 150 MG Tab.ER PO SCH (11:05)
[2018-07-15] MEDS: Zinc (Zinc Gluconate) 50 MG Tab PO SCH (11:05)
[2018-07-15] MEDS: Docusate Sodium 100 MG Cap PO SCH (11:05)
[2018-07-15] MEDS: Iron Polysaccharides Complex 150 MG Cap PO SCH (11:05)
[2018-07-15] MEDS: Multivitamins with Minerals/Iron/Folic Acid/Lycopene Tab PO SCH (11:05)
[2018-07-15] MEDS: Naloxegol Oxalate 25 MG Tab PO SCH (11:06)
[2018-07-15] MEDS: Chlorthalidone 25 MG Tab PO SCH (11:06)
[2018-07-15] MEDS: Allopurinol 100 MG Tab PO SCH (11:06)
[2018-07-15] MEDS: METOPROLOL 100 MG PO SCH (11:07)
[2018-07-15] MEDS: Insulin Detemir 100 Units/ML 3 ML Pen SUBCUT SCH (11:08)
[2018-07-15] MEDS: Polyethylene Glycol 3350 Powder 17 GM Packet PO SCH (11:09)
[2018-07-15] MEDS: Nystatin Topical Powder 15 GM Bottle TOP SCH (11:09)
[2018-07-15] MEDS: Omeprazole 20 MG Cap.CR PO SCH ×2 (11:16→18:09)
--- NOTE | 2018-07-18 09:07 | DISCH ---
FINAL DIAGNOSES: 1. Right-sided pleural effusions, likely malignant. 2. Left humeral head fracture. 3. 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 Present on admission 4. Deconditioning. 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 She was receiving physical therapy. She had had a left humeral head fracture, receiving extensive PT and OT and range of motion and strengthening exercises. Over the past few days, she has started to develop mild shortness of breath requiring increasing levels of oxygen. Subsequent chest x-ray demonstrated near complete whiteout on her right side resembling large right-sided pleural effusion. Physical exam demonstrated decreased pulmonary excursion and breath sounds. She was subsequently transferred to [facility] for therapeutic thoracentesis likely malignant effusion. She remains admitted in [facility] with subsequent chest tube post thoracentesis. REVIEW OF SYSTEMS: RESPIRATORY: Short of breath, increasing oxygen needs. She is alert and oriented, no confusion. On physical exam, breath sounds right side extremely diminished. Decrease in pulmonary excursion. Oxygen saturations low to mid 90s. RR 26-30 Recent labs, white count 8.11, neutrophilia 75%. Sodium and potassium normal. BUN 22, creatinine 1.23, procalcitonin 0.05, glucose 86, estimated GFR around 42. Medication changes and adjustments upon discharge, see MAR. However, no acute changes other than 20 mg of Lasix x1. DISPOSITION: The patient was subsequently transferred via BLS to [facility]. Indication with ED physician regarding possible need for thoracentesis in hopes of returning at some point upon further stability. /[id number]/MODL MTDD
== END 2018-07-15 13:20 | DRG 515 ==
LOC: UNDOADMIN 16:32 → KA.MS 16:32
PROVIDERS: ADMIT Nurse Practitioner Family; ATTEND Family Medicine
PROC: 0D9W30Z Drainage of Peritoneum with Drainage Device, Percutaneous Approach (ICD-10-PCS; 2017-10-22)
PROC: 30233N1 Transfusion of Nonautologous Red Blood Cells into Peripheral Vein, Percutaneous Approach (ICD-10-PCS; 2017-11-22)
PROC: 0QB10ZZ Excision of Sacrum, Open Approach (ICD-10-PCS; principal; 2017-11-23)
DX: S42.202A Unspecified fracture of upper end of left humerus, initial encounter for closed fracture (principal); L89.153 Pressure ulcer of sacral region, stage 3; L89.154 Pressure ulcer of sacral region, stage 4; C78.6 Secondary malignant neoplasm of retroperitoneum and peritoneum; C56.9 Malignant neoplasm of unspecified ovary; R18.0 Malignant ascites; E46 Unspecified protein-calorie malnutrition; N39.0 Urinary tract infection, site not specified; L02.211 Cutaneous abscess of abdominal wall; H54.7 Unspecified visual loss; Z66 Do not resuscitate; E11.319 Type 2 diabetes mellitus with unspecified diabetic retinopathy without macular edema; I25.10 Atherosclerotic heart disease of native coronary artery without angina pectoris; E78.00 Pure hypercholesterolemia, unspecified; I12.9 Hypertensive chronic kidney disease with stage 1 through stage 4 chronic kidney disease, or unspecified chronic kidney disease; E11.22 Type 2 diabetes mellitus with diabetic chronic kidney disease; N18.3 Chronic kidney disease, stage 3 (moderate); I35.0 Nonrheumatic aortic (valve) stenosis; K21.9 Gastro-esophageal reflux disease without esophagitis; N32.81 Overactive bladder; M19.90 Unspecified osteoarthritis, unspecified site; F32.9 Major depressive disorder, single episode, unspecified; D64.81 Anemia due to antineoplastic chemotherapy; T45.1X5A Adverse effect of antineoplastic and immunosuppressive drugs, initial encounter; E78.5 Hyperlipidemia, unspecified; E66.9 Obesity, unspecified; R11.0 Nausea; F41.9 Anxiety disorder, unspecified; M10.9 Gout, unspecified; Z79.82 Long term (current) use of aspirin; Z79.4 Long term (current) use of insulin; Z79.899 Other long term (current) drug therapy; Z95.2 Presence of prosthetic heart valve; Z95.1 Presence of aortocoronary bypass graft; Z93.3 Colostomy status; Z90.710 Acquired absence of both cervix and uterus; Z90.721 Acquired absence of ovaries, unilateral; Z85.42 Personal history of malignant neoplasm of other parts of uterus; S46.212A Strain of muscle, fascia and tendon of other parts of biceps, left arm, initial encounter; J02.9 Acute pharyngitis, unspecified; D72.0 Genetic anomalies of leukocytes; R04.0 Epistaxis; B37.2 Candidiasis of skin and nail; Z97.8 Presence of other specified devices; K59.09 Other constipation; G47.00 Insomnia, unspecified; W10.9XXA Fall (on) (from) unspecified stairs and steps, initial encounter; G47.9 Sleep disorder, unspecified; Z68.32 Body mass index [BMI] 32.0-32.9, adult
CPT/HCPCS: 36415; 36430; 70450; 71046; 73030-LT; 73060-LT; 74176; 76881-LT; 80048; 80053; 81001; 82962; 84145; 85025; 85027; 86850; 86900; 86901; 86920; 86922; 87040; 87070; 87086; 87088; 87147; 87186; 87205; 90662; 97110-GP; 97112-GP; 97116-GP; 97140-GP; 97150-GP; 97162-GP; 97163-GP; 97530-GP; 97537-GP; 97597-GP; 97602-GP; 97605; A9270-GY; G0283-GP; J0692; J0744; J1815-GY; J1940; J2550; J7050; P9016; P9047; Q0164

== ENCOUNTER 2018-07-21 11:42 | Inpatient (IN) | payer MEDICARE, OTHER, MEDICAID ==
[2018-07-21] MEDS ORDERED: Atropine 1% Ophth Soln 5 ML BOTTLE SL PRN (18:59)
[2018-07-21] MEDS ORDERED: ALPRAZolam 0.25 MG Tab PO PRN (18:59)
[2018-07-21] MEDS ORDERED: Diclofenac Sodium 1% Gel 100 GM Tube TOP PRN (18:59)
[2018-07-21] MEDS ORDERED: Simethicone 80 MG Tab.Chew PO PRN (18:59)
[2018-07-21] MEDS ORDERED: Nystatin Topical Powder 15 GM Bottle TOP PRN (18:59)
[2018-07-21] MEDS ORDERED: Bisacodyl 10 MG Supp RECTAL PRN (18:59)
[2018-07-21] MEDS ORDERED: Morphine Oral Concentrate 20 MG/ML 30 ML Bottle PO PRN (18:59)
[2018-07-21] MEDS ORDERED: Acetaminophen 500 MG Tab PO SCH (19:00)
[2018-07-21] MEDS: Docusate Sodium 100 MG Cap PO SCH (20:12)
[2018-07-21] MEDS: oxyCODONE 5 MG Tab PO SCH (20:12)
[2018-07-21] MEDS: Ondansetron 4 MG Tab.DIS PO SCH (20:13)
[2018-07-21] MEDS ORDERED: Sertraline 50 MG Tab PO SCH (21:00)
[2018-07-21] MEDS: Metoclopramide 5 MG Tab PO SCH (21:24)
[2018-07-22] MEDS: oxyCODONE 5 MG Tab PO SCH (00:29)
[2018-07-22] MEDS ORDERED: oxyCODONE 5 MG Tab PO SCH (06:00)
[2018-07-22] MEDS ORDERED: Omeprazole 20 MG Cap.CR PO SCH (06:00)
[2018-07-22] MEDS: Acetaminophen 500 MG Tab PO SCH ×3 (07:15→22:41)
[2018-07-22] MEDS: Metoclopramide 5 MG Tab PO SCH ×4 (07:15→22:41)
[2018-07-22] MEDS: Ondansetron 4 MG Tab.DIS PO SCH ×2 (07:16→12:04)
[2018-07-22] MEDS: Docusate Sodium 100 MG Cap PO SCH ×2 (08:27→20:33)
[2018-07-22] MEDS: Polyethylene Glycol 3350 Powder 17 GM Packet PO SCH (08:29)
[2018-07-22] MEDS ORDERED: Metoclopramide 10 MG Tab PO SCH (08:41)
[2018-07-22] MEDS ORDERED: Naloxegol Oxalate 25 MG Tab PO SCH (09:00)
[2018-07-22] MEDS ORDERED: Nystatin Topical Powder 15 GM Bottle TOP SCH (09:00)
[2018-07-22] MEDS ORDERED: buPROPion 150 MG Tab.ER PO SCH (09:00)
--- NOTE | 2018-07-22 09:04 | PCM.HP ---
H&P History of Present Illness - General Date of Service: 07/22/18 Admit Problem/Dx: Admission Diagnosis/Problem Admission Diagnosis/Problem Metastatic adenocarcinoma Source of Information: Patient, Old Records, RN History Limitations: Reports: No Limitations - Related Data Allergies/Adverse Reactions: Allergies Allergy/AdvReac Type Severity Reaction Status Date / Time latex Allergy Rash Verified 04/01/18 09:41 Home Medications: Home Meds Omeprazole 20 mg PO BID@0600,1700 09/29/17 [History] Polyethylene Glycol 3350 [MiraLAX] 17 gm PO DAILY 09/29/17 [History] Prochlorperazine [Compazine] 10 mg PO QID PRN 09/29/17 [History] Sertraline HCl 150 mg PO BEDTIME 09/29/17 [History] Acetaminophen [Extra Strength Non-Aspirin] 1,000 mg PO Q8H 10/22/17 [History] Naloxegol Oxalate [Movantik] 25 mg PO DAILY 10/22/17 [History] Sennosides/Docusate Sodium [Senna Plus Tablet] 1 tab PO BEDTIME 10/22/17 [ History] oxyCODONE 5 mg PO Q6H 10/22/17 [History] ALPRAZolam [Alprazolam] 0.25 mg PO Q8H PRN 07/15/18 [History] Alum Hydroxide/Mag Hydroxide [Mag-Al] 30 ml PO Q6H PRN 07/15/18 [History] Bisacodyl 10 mg RC DAILY PRN 07/15/18 [History] Diclofenac Sodium [Voltaren 1%] 1 gm TP QID PRN 07/15/18 [History] Docusate Sodium 100 mg PO BID 07/15/18 [History] Nystatin 1 applic TP TID PRN 07/15/18 [History] Ondansetron [Zofran ODT] 8 mg PO TIDAC 07/15/18 [History] Ramelteon [Rozerem] 8 mg PO BEDTIME 07/15/18 [History] Simethicone 80 mg PO Q6H PRN 07/15/18 [History] buPROPion [buPROPion XL] 150 mg PO DAILY 07/15/18 [History] Atropine 1% [Atropine 1% Ophth Soln] 1 - 2 drop SL Q1H PRN 07/21/18 [History] LORazepam [LORazepam Intensol] 0.5 mg PO Q4HR PRN 07/21/18 [History] Metoclopramide [Reglan] 5 mg PO QIDACANDBED 07/21/18 [History] Morphine [Morphine 20 MG/ML Soln] 5 mg PO Q4H PRN 07/21/18 [History] Nystatin 1 applic TP DAILY 07/21/18 [History] Past Medical History HEENT History: Reports: Impaired Vision Other HEENT History: diabetic retinopathy Cardiovascular History: Reports: CAD, High Cholesterol, Hypertension Other Cardiovascular History: atrial flutter. aortic stenosis Respiratory History: Reports: Other (See Below) Other Respiratory History: Plural effusion Gastrointestinal History: Reports: GERD, Other (See Below) Other Gastrointestinal History: malignant ascites with pleurix drain placed to right upper abdomen on 10/20/17 Genitourinary History: Reports: Chronic Renal Insuffiency Other Genitourinary History: OVER ACTIVE BLADDER. CKD STAGE III [employer]UMINUM [employer] History: Reports: Musculoskeletal History: Reports: Osteoarthritis Neurological History: Reports: None Psychiatric History: Reports: Depression Endocrine/Metabolic History: Reports: Diabetes, Type II Hematologic History: Reports: None Immunologic History: Reports: Immunosuppression Oncologic (Cancer) History: Reports: None Other Oncologic History: ENDOMETRIAL. PERITONEAL Dermatologic History: Reports: None - Infectious Disease History Infectious Disease History: Reports: Measles, Mumps - Past Surgical History Head Surgeries/Procedures: Reports: None HEENT Surgical History: Reports: None Cardiovascular Surgical History: Reports: Valve Replacement Other Cardiovascular Surgeries/Procedures: CABG. AORTIC VALVE REPLACEMENT GI Surgical History: Reports: Colostomy Female Surgical History: Reports: D&C, Hysterectomy, Salpingo-Oophorectomy Other Female Surgeries/Procedures: NODE DISSECTION Endocrine Surgical History: Reports: None Neurological Surgical History: Reports: None Musculoskeletal Surgical History: Reports: None Oncologic Surgical History: Reports: None Dermatological Surgical History: Reports: None Social & Family History - Family History HEENT: Reports: None Cardiac: Reports: None Respiratory: Reports: None GI: Reports: None : Reports: None OBGYN: Reports: None Musculoskeletal: Reports: None Neurological: Reports: Dementia Psychiatric: Reports: None Endocrine/Metabolic: Reports: None Immunologic: Reports: None Dermatologic: Reports: None (Oncologic: Reports: Brain (vdja-[id number] cancer ), Colon (father-mid 70s-), Other (sister-unknown primary cancer in 50s -)) Oncologic: Reports: Brain, Colon, Other (See Below) - Tobacco Use Smoking Status *Q: Never Smoker Second Hand Smoke Exposure: No - Caffeine Use Caffeine Use: Reports: Coffee, Soda Other Caffeine Use: diet - Recreational Drug Use Recreational Drug Use: No - Living Situation & Occupation Living situation: Reports: Single Occupation: Retired H&P Review of Systems - Review of Systems: Review Of Systems: See Below General: Reports: Malaise, Weakness, Fatigue. Denies: Fever, Night Sweats, Diaphoresis, Decreased Appetite, Weight Gain (Weight loss) HEENT: Reports: No Symptoms Pulmonary: Reports: Shortness of Breath. Denies: Cough, Sputum Cardiovascular: Reports: Dyspnea on Exertion, Blood Pressure Problem (BP improved from yesterday). Denies: Chest Pain, Palpitations, Orthopnea, Edema Gastrointestinal: Reports: No Symptoms Genitourinary: Reports: No Symptoms Musculoskeletal: Reports: Shoulder Pain Skin: Reports: Pallor, Wound (Coccyx wound,). Denies: Bruising, Pruritis, Rash Psychiatric: Reports: No Symptoms Neurological: Reports: Weakness. Denies: Change in Speech Hematologic/Lymphatic: Reports: No Symptoms Immunologic: Reports: No Symptoms Exam - Exam Exam: See Below - Vital Signs Vital Signs: Last Vital Signs Temp 98.1 F 07/22/18 06:53 Pulse 88 07/22/18 06:53 Resp 16 07/22/18 06:53 BP 119/65 07/22/18 06:53 Pulse Ox 93 L 07/22/18 06:53 Weight: 170 lb - Exam Quality Assessment: Supplemental Oxygen (2 L nasal cannula), Skin Breakdown ( Present on admission, stage IV coccyx breakdown,). No: Central Line/PICC, Urinary Catheter Neck: Supple Lungs: Decreased Breath Sounds (Decreased breath sounds right side). No: Normal Respiratory Effort, Rales, Rhonchi Cardiovascular: Regular Rate, Regular Rhythm GI/Abdominal Exam: Normal Bowel Sounds, Soft, Non-Tender. No: Distended Rectal (Female) Exam: Deferred Back Exam: No: CVA Tenderness (L), CVA Tenderness (R) Extremities: Pedal Edema (1+ pedal edema lower extremities), Arm Pain (Left shoulder pain very little abduction, 40) Peripheral Pulses: 2+: Radial (L), Radial (R) Skin: Warm, Moist, Wound (Stage IV coccyx breakdown, pictures today, serial chest to right middle lobe no subcutaneous emphysema) Neuro Extensive - Motor, Sensory, Reflexes: CN II-XII Intact Psychiatric: Alert, Normal Affect, Normal Mood - Patient Data Lab Results Last 24 hrs: Laboratory Results - last 24 hr 07/22/18 Range/Units 07:13 POC Glucose 152 H (74-106) mg/dl Problem List Initiated/Reviewed/Updated: Yes Orders Last 24hrs: Active Orders 24 hr Category Date Time Status Patient Status [ADT] Routine ADT 07/21/18 14:15 Ordered Blood Glucose Check, Bedside [RC] PRN Care 07/22/18 07:20 Active Intake and Output [RC] 1400,2200,0600 Care 07/21/18 14:51 Inactive Oxygen Therapy [RC] DAILY Care 07/21/18 14:15 Active Up With Assistance [RC] ASDIRECTED Care 07/21/18 14:51 Active Vital Signs [RC] BID Care 07/21/18 14:51 Active Wound Care [RC] DAILY Care 07/21/18 15:25 Active [employer] Diet [DIET] Diet 07/21/18 Dinner Active ALPRAZolam [Xanax] Med 07/21/18 18:59 Active 0.25 mg PO Q8H PRN Acetaminophen [Tylenol Extra Strength] Med 07/22/18 07:00 Active 1,000 mg PO Q8H Alum Hydroxide/Mag Hydroxide [Mag-Al Susp] Med 07/21/18 18:59 Active 30 ml PO Q6H PRN Atropine 1% [Atropine 1% Ophth Soln] Med 07/21/18 18:59 Active 0 ml SL Q1H PRN Bisacodyl [Dulcolax] Med 07/21/18 18:59 Active 10 mg RECTAL DAILY PRN Diclofenac Sodium [Voltaren 1% Gel] Med 07/21/18 18:59 Active 1 gm TOP QID PRN Docusate Sodium [Colace] Med 07/21/18 21:00 Active 100 mg PO BID Docusate Sodium/Sennosides [Senna Plus] Med 07/21/18 21:00 Active 1 tab PO BEDTIME Metoclopramide [Reglan] Med 07/22/18 08:41 Active 5 mg PO QIDACANDBED Morphine [Morphine 20 MG/ML Soln] Med 07/21/18 18:59 Active 5 mg PO Q4H PRN Naloxegol Oxalate [Movantik] Med 07/22/18 09:00 Active 25 mg PO DAILY Nystatin [Nystop] Med 07/22/18 09:00 Active 0 gm TOP DAILY Nystatin [Nystop] Med 07/21/18 18:59 Active 0 gm TOP TID PRN Omeprazole Med 07/22/18 06:00 Active 20 mg PO BID@0600,1700 Ondansetron [Zofran ODT] Med 07/21/18 19:45 Active 4 mg PO TIDAC Polyethylene Glycol 3350 [MiraLAX] Med 07/22/18 09:00 Active 17 gm PO DAILY Ramelteon [Rozerem] Med 07/21/18 21:00 Active 8 mg PO BEDTIME Sertraline [Zoloft] Med 07/21/18 21:00 Active 150 mg PO BEDTIME Simethicone Med 07/21/18 18:59 Active 80 mg PO Q6H PRN buPROPion [Wellbutrin XL] Med 07/22/18 09:00 Active 150 mg PO DAILY oxyCODONE Med 07/22/18 06:00 Active 5 mg PO Q6H Resuscitation Status Routine Resus Stat 07/21/18 14:51 Ordered Medication Orders Acetaminophen (Tylenol Extra Strength) 1,000 mg PO Q8H [facility] Last Admin: 07/22/18 07:15 Dose: 1,000 mg Al Hydroxide/Mg Hydroxide (Mag-Al Susp) 30 ml PO Q6H PRN PRN Reason: Indigestion Alprazolam (Xanax) 0.25 mg PO Q8H PRN PRN Reason: Anxiety Atropine Sulfate (Atropine 1% Ophth Soln) 0 ml SL Q1H PRN PRN Reason: secretions Bisacodyl (Dulcolax) 10 mg RECTAL DAILY PRN PRN Reason: Constipation Bupropion HCl (Wellbutrin Xl) 150 mg PO DAILY [facility] Last Admin: 07/22/18 08:27 Dose: 150 mg Diclofenac Sodium (Voltaren 1% Gel) 1 gm TOP QID PRN PRN Reason: mild pain Docusate Sodium (Colace) 100 mg PO BID [facility] Last Admin: 07/22/18 08:27 Dose: 100 mg Admin: 07/21/18 20:12 Dose: 100 mg Metoclopramide HCl (Reglan) 5 mg PO QIDACANDBED [facility] Morphine Sulfate (Morphine 20 Mg/Ml Soln) 5 mg PO Q4H PRN PRN Reason: Pain (severe 7-10) Naloxegol (Movantik) 25 mg PO DAILY [facility] Last Admin: 07/22/18 08:27 Dose: 25 mg Nystatin (Nystop) 0 gm TOP DAILY [facility] Last Admin: 07/22/18 08:30 Dose: Not Given Nystatin (Nystop) 0 gm TOP TID PRN PRN Reason: Rash Omeprazole (Omeprazole) 20 mg PO BID@0600,1700 [facility] Last Admin: 07/22/18 05:52 Dose: 20 mg Ondansetron HCl (Zofran Odt) 4 mg PO TIDAC [facility] Last Admin: 07/22/18 07:16 Dose: 4 mg Admin: 07/21/18 20:13 Dose: 4 mg Oxycodone HCl (Oxycodone) 5 mg PO Q6H [facility] Last Admin: 07/22/18 05:52 Dose: 5 mg Polyethylene Glycol (Miralax) 17 gm PO DAILY [facility] Last Admin: 07/22/18 08:29 Dose: Not Given Ramelteon (Rozerem) 8 mg PO BEDTIME [facility] Last Admin: 07/21/18 20:12 Dose: 8 mg Senna/Docusate Sodium (Senna Plus) 1 tab PO BEDTIME [facility] Last Admin: 07/21/18 20:13 Dose: 1 tab Sertraline HCl (Zoloft) 150 mg PO BEDTIME [facility] Last Admin: 07/21/18 20:12 Dose: 150 mg Simethicone (Simethicone) 80 mg PO Q6H PRN PRN Reason: Gas relief Assessment/Plan Comment:: History of present illness Rhonad is a 77-year-old female who returned back to [facility] after she was transferred temporarily to [facility] after having developed a significant malignant right-sided pleural effusion necessitating drainage and subsequent chest tube. 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 Family care conference and discussion with Dr Epstein and patient decided on returning to swing bed and comfort cares. She remains on oxygen. She has been in SNF here at [place] since October 2017 undergoing PT. See DC summary for details on her previous stay. PRIMARY HOSPITAL PROBLEMS Pleural effusion on right, chest tube removed, Peritoneal carcinomatosis/Cancer Dyspnea, oxygen Pressure injury of sacral region, stage 3, POA Protein malnutrition Dysphagia Secondary problems Left humeral head fracture. Patient with periodic pain however mainly on movement/PT manipulation. She does have significant limitations in her left arm with almost no ability to abduct 30 however ongoing physical therapy is assisting with ROM and strengthening. Stage 3 pressure ulcer to coccyx, chronic, ongoing, present on admission, will take pictures and submitted to records, she did have NPWT due to observed undermining/sinus tracking in wound, and the need for repeated sharps debridement, along with little to no drainage. Will dress Anxiety, very stable, grieving appropriately, as accepted her terminal condition. CAD, no ischemic picture, stable. Immunocompromised host. No fever no infectious process. HTN, discontinue amlodipine, ARB and beta marty. Expectant management Aortic stenosis, History of atrial flutter. T2DM, Discontinue insulin, discontinue Accu-Cheks, change diet to regular, make meals appealing CKD stage 3. Stable Hyperlipidemia. No longer on statin therapy. Gout. Discontinued allopurinol Diabetic retinopathy. Depression. Very stable, patient accepting condition, at peace, Continue zoloft. GERD. Continue omeprazole bid, Osteoarthritis. Tylenol History of hypercalcemia. DVT prophylaxis. Score of 6, Continue with phan stockings. Deconditioning. Profound, Continue physical therapy Left bicipital tendon rupture. Cont PT, no further tx due to condition/co- morbities, age, occupation Comfort/dignity measures Pain control Anxiety control OIC prophylaxis Not resuscitate Hold off on lab draws Control nausea and vomiting, notify provider if concerns Small frequent appealing meals Discontinue insulin and Accu-Cheks, Support grieving process Spiritual consultation
[2018-07-22] MEDS ORDERED: oxyCODONE 5 MG Tab PO PRN (10:37)
[2018-07-22] MEDS: Ondansetron 8 MG Tab.DIS PO SCH ×2 (11:43→17:03)
[2018-07-22] MEDS ORDERED: ALPRAZolam 0.25 MG Tab PO PRN (13:33)
[2018-07-22] MEDS ORDERED: Diclofenac Sodium 1% Gel 100 GM Tube TOP PRN (13:36)
[2018-07-22] MEDS ORDERED: NYSTATIN TOP PRN (13:38)
[2018-07-22] MEDS: NYSTATIN TOP SCH (14:24)
[2018-07-22] MEDS: Omeprazole 20 MG Cap.CR PO SCH (17:03)
[2018-07-22] MEDS: Sertraline 100 MG Tab PO SCH (20:33)
[2018-07-23] MEDS ORDERED: Omeprazole 20 MG Cap.CR ONE (06:28)
[2018-07-23] MEDS ORDERED: Metoclopramide 10 MG Tab ONE (06:28)
[2018-07-23] MEDS ORDERED: Ondansetron 4 MG Tab.DIS ONE (06:29)
[2018-07-23] MEDS: Acetaminophen 500 MG Tab PO SCH ×3 (06:35→22:00)
[2018-07-23] MEDS: Omeprazole 20 MG Cap.CR PO SCH ×2 (06:35→18:02)
[2018-07-23] MEDS: Metoclopramide 5 MG Tab PO SCH ×4 (06:36→21:59)
[2018-07-23] MEDS: Ondansetron 8 MG Tab.DIS PO SCH ×3 (06:37→18:01)
[2018-07-23] MEDS: Docusate Sodium 100 MG Cap PO SCH ×2 (08:38→21:58)
[2018-07-23] MEDS: Naloxegol Oxalate 25 MG Tab PO SCH (08:39)
[2018-07-23] MEDS: buPROPion 150 MG Tab.ER PO SCH (08:39)
[2018-07-23] MEDS: Polyethylene Glycol 3350 Powder 17 GM Packet PO SCH (08:40)
[2018-07-23] MEDS: NYSTATIN TOP SCH (08:41)
[2018-07-23] MEDS: Sertraline 100 MG Tab PO SCH (21:58)
[2018-07-24] MEDS: Aluminum Hydroxide/Magnesium Hydroxide Susp 30 ML Cup PO PRN ×2 (03:44→23:15)
[2018-07-24] MEDS: Acetaminophen 500 MG Tab PO SCH ×3 (06:20→22:09)
[2018-07-24] MEDS: Metoclopramide 5 MG Tab PO SCH ×4 (06:21→22:08)
[2018-07-24] MEDS: Omeprazole 20 MG Cap.CR PO SCH ×2 (06:21→17:53)
[2018-07-24] MEDS: Ondansetron 8 MG Tab.DIS PO SCH ×3 (06:22→17:54)
[2018-07-24] MEDS: Docusate Sodium 100 MG Cap PO SCH ×2 (08:13→22:08)
[2018-07-24] MEDS: NYSTATIN TOP SCH (08:13)
[2018-07-24] MEDS: Naloxegol Oxalate 25 MG Tab PO SCH (08:13)
[2018-07-24] MEDS: Polyethylene Glycol 3350 Powder 17 GM Packet PO SCH (08:13)
[2018-07-24] MEDS: buPROPion 150 MG Tab.ER PO SCH (08:13)
[2018-07-24] MEDS: Sertraline 100 MG Tab PO SCH (22:09)
[2018-07-25] MEDS: Acetaminophen 500 MG Tab PO SCH ×3 (06:16→22:23)
[2018-07-25] MEDS: Metoclopramide 5 MG Tab PO SCH ×4 (06:16→22:23)
[2018-07-25] MEDS: Omeprazole 20 MG Cap.CR PO SCH ×2 (06:17→16:50)
[2018-07-25] MEDS: Ondansetron 8 MG Tab.DIS PO SCH ×3 (06:18→16:50)
[2018-07-25] MEDS: buPROPion 150 MG Tab.ER PO SCH (08:48)
[2018-07-25] MEDS: Naloxegol Oxalate 25 MG Tab PO SCH (08:49)
[2018-07-25] MEDS: NYSTATIN TOP SCH (08:49)
[2018-07-25] MEDS: Polyethylene Glycol 3350 Powder 17 GM Packet PO SCH (08:49)
[2018-07-25] MEDS: Docusate Sodium 100 MG Cap PO SCH ×2 (08:53→20:21)
[2018-07-25] MEDS: Sertraline 100 MG Tab PO SCH (20:21)
[2018-07-26] MEDS: Aluminum Hydroxide/Magnesium Hydroxide Susp 30 ML Cup PO PRN (00:57)
[2018-07-26] MEDS: Omeprazole 20 MG Cap.CR PO SCH ×2 (05:29→17:35)
[2018-07-26] MEDS: Acetaminophen 500 MG Tab PO SCH ×3 (07:11→23:12)
[2018-07-26] MEDS: Ondansetron 8 MG Tab.DIS PO SCH ×3 (07:11→17:35)
[2018-07-26] MEDS: Metoclopramide 5 MG Tab PO SCH ×4 (07:11→23:11)
[2018-07-26] MEDS: Polyethylene Glycol 3350 Powder 17 GM Packet PO SCH (08:30)
[2018-07-26] MEDS: NYSTATIN TOP SCH (08:30)
[2018-07-26] MEDS: buPROPion 150 MG Tab.ER PO SCH (08:30)
[2018-07-26] MEDS: Docusate Sodium 100 MG Cap PO SCH ×2 (08:30→20:36)
[2018-07-26] MEDS: Naloxegol Oxalate 25 MG Tab PO SCH (08:30)
[2018-07-26] MEDS: Hyoscyamine 0.125 MG Tab.SL PO SCH ×2 (17:31→23:11)
[2018-07-26] MEDS: Sertraline 100 MG Tab PO SCH (20:36)
[2018-07-27] MEDS: Aluminum Hydroxide/Magnesium Hydroxide Susp 30 ML Cup PO PRN ×2 (02:37→17:02)
[2018-07-27] MEDS: Hyoscyamine 0.125 MG Tab.SL PO SCH ×4 (05:31→22:03)
[2018-07-27] MEDS: Metoclopramide 5 MG Tab PO SCH ×4 (06:09→22:04)
[2018-07-27] MEDS: Ondansetron 8 MG Tab.DIS PO SCH ×3 (06:09→17:02)
[2018-07-27] MEDS: Omeprazole 20 MG Cap.CR PO SCH ×2 (06:09→17:02)
[2018-07-27] MEDS: Acetaminophen 500 MG Tab PO SCH ×3 (06:12→22:03)
[2018-07-27] MEDS: Polyethylene Glycol 3350 Powder 17 GM Packet PO SCH (08:46)
[2018-07-27] MEDS: NYSTATIN TOP SCH (08:46)
[2018-07-27] MEDS: Docusate Sodium 100 MG Cap PO SCH ×2 (08:58→22:02)
[2018-07-27] MEDS: buPROPion 150 MG Tab.ER PO SCH (08:59)
[2018-07-27] MEDS: Naloxegol Oxalate 25 MG Tab PO SCH (08:59)
[2018-07-27] MEDS ORDERED: Scopolamine 1.5 MG Transdermal Patch TRDERM SCH (19:30)
[2018-07-27] MEDS: Sertraline 100 MG Tab PO SCH (22:04)
[2018-07-28] MEDS: oxyCODONE 5 MG Tab PO PRN (01:54)
[2018-07-28] MEDS: Acetaminophen 500 MG Tab PO SCH ×2 (06:07→14:02)
[2018-07-28] MEDS: Omeprazole 20 MG Cap.CR PO SCH ×2 (06:08→16:57)
[2018-07-28] MEDS: Hyoscyamine 0.125 MG Tab.SL PO SCH (06:08)
[2018-07-28] MEDS: Metoclopramide 5 MG Tab PO SCH ×3 (06:08→16:57)
[2018-07-28] MEDS: Aluminum Hydroxide/Magnesium Hydroxide Susp 30 ML Cup PO PRN (06:09)
[2018-07-28] MEDS: Ondansetron 8 MG Tab.DIS PO SCH ×3 (06:10→17:02)
[2018-07-28] MEDS: Polyethylene Glycol 3350 Powder 17 GM Packet PO SCH (08:09)
[2018-07-28] MEDS: Docusate Sodium 100 MG Cap PO SCH ×2 (09:17→20:45)
[2018-07-28] MEDS: Naloxegol Oxalate 25 MG Tab PO SCH (09:17)
[2018-07-28] MEDS: buPROPion 150 MG Tab.ER PO SCH (09:17)
[2018-07-28] MEDS: NYSTATIN TOP SCH (09:42)
[2018-07-28] MEDS: Sertraline 100 MG Tab PO SCH (20:45)
[2018-07-29] MEDS: Metoclopramide 5 MG Tab PO SCH ×5 (03:48→21:04)
[2018-07-29] MEDS: Acetaminophen 500 MG Tab PO SCH ×4 (03:48→23:00)
[2018-07-29] MEDS: Aluminum Hydroxide/Magnesium Hydroxide Susp 30 ML Cup PO PRN (05:27)
[2018-07-29] MEDS: Omeprazole 20 MG Cap.CR PO SCH ×2 (05:29→17:10)
[2018-07-29] MEDS: Ondansetron 8 MG Tab.DIS PO SCH ×3 (07:51→17:10)
[2018-07-29] MEDS: Docusate Sodium 100 MG Cap PO SCH ×2 (08:56→21:09)
[2018-07-29] MEDS: buPROPion 150 MG Tab.ER PO SCH (08:57)
[2018-07-29] MEDS: Naloxegol Oxalate 25 MG Tab PO SCH (08:57)
[2018-07-29] MEDS: NYSTATIN TOP SCH (08:58)
[2018-07-29] MEDS: Polyethylene Glycol 3350 Powder 17 GM Packet PO SCH (08:59)
[2018-07-29] MEDS: Sertraline 100 MG Tab PO SCH (21:06)
[2018-07-30] MEDS: oxyCODONE 5 MG Tab PO PRN ×2 (00:12→08:54)
[2018-07-30] MEDS: Omeprazole 20 MG Cap.CR PO SCH ×2 (06:41→17:46)
[2018-07-30] MEDS: Metoclopramide 5 MG Tab PO SCH ×4 (06:42→21:00)
[2018-07-30] MEDS: Ondansetron 8 MG Tab.DIS PO SCH ×3 (06:42→17:47)
[2018-07-30] MEDS: Acetaminophen 500 MG Tab PO SCH ×3 (06:44→22:19)
[2018-07-30] MEDS: HYOSCYAMINE 0.125 MG SL PRN (07:15)
[2018-07-30] MEDS: buPROPion 150 MG Tab.ER PO SCH (08:48)
[2018-07-30] MEDS: Naloxegol Oxalate 25 MG Tab PO SCH (08:48)
[2018-07-30] MEDS: Docusate Sodium 100 MG Cap PO SCH ×2 (08:49→20:58)
[2018-07-30] MEDS: NYSTATIN TOP SCH (08:49)
[2018-07-30] MEDS: Polyethylene Glycol 3350 Powder 17 GM Packet PO SCH (08:49)
[2018-07-30] MEDS: OXYCODONE 5 MG PO SCH ×2 (18:43→23:15)
[2018-07-30] MEDS: Sertraline 100 MG Tab PO SCH (20:59)
[2018-07-31] MEDS: OXYCODONE 5 MG PO SCH ×4 (06:21→23:10)
[2018-07-31] MEDS: Omeprazole 20 MG Cap.CR PO SCH ×2 (06:21→17:27)
[2018-07-31] MEDS: HYOSCYAMINE 0.125 MG SL PRN (06:21)
[2018-07-31] MEDS: Acetaminophen 500 MG Tab PO SCH ×3 (07:50→22:46)
[2018-07-31] MEDS: Ondansetron 8 MG Tab.DIS PO SCH ×3 (07:51→17:27)
[2018-07-31] MEDS: Metoclopramide 5 MG Tab PO SCH ×4 (07:51→22:47)
[2018-07-31] MEDS: NYSTATIN TOP SCH (08:47)
[2018-07-31] MEDS: Polyethylene Glycol 3350 Powder 17 GM Packet PO SCH ×2 (08:47→14:16)
[2018-07-31] MEDS: Naloxegol Oxalate 25 MG Tab PO SCH (08:50)
[2018-07-31] MEDS: Docusate Sodium 100 MG Cap PO SCH ×2 (08:50→20:04)
[2018-07-31] MEDS: buPROPion 150 MG Tab.ER PO SCH (08:50)
[2018-07-31] MEDS ORDERED: Promethazine Topical Gel 0.5 ML Syringe TOP PRN (12:23)
[2018-07-31] MEDS: Sertraline 100 MG Tab PO SCH (20:03)
[2018-07-31] MEDS: Aluminum Hydroxide/Magnesium Hydroxide Susp 30 ML Cup PO PRN (22:50)
[2018-08-01] MEDS: Omeprazole 20 MG Cap.CR PO SCH ×2 (06:30→17:56)
[2018-08-01] MEDS: OXYCODONE 5 MG PO SCH ×3 (06:30→17:54)
[2018-08-01] MEDS: Ondansetron 8 MG Tab.DIS PO SCH ×3 (06:30→17:56)
[2018-08-01] MEDS: Metoclopramide 5 MG Tab PO SCH ×4 (06:30→21:01)
[2018-08-01] MEDS: Acetaminophen 500 MG Tab PO SCH ×4 (06:39→23:52)
[2018-08-01] MEDS: Naloxegol Oxalate 25 MG Tab PO SCH (08:00)
[2018-08-01] MEDS: Polyethylene Glycol 3350 Powder 17 GM Packet PO SCH (08:00)
[2018-08-01] MEDS: NYSTATIN TOP SCH (08:00)
[2018-08-01] MEDS: buPROPion 150 MG Tab.ER PO SCH (08:00)
[2018-08-01] MEDS: Docusate Sodium 100 MG Cap PO SCH ×2 (08:00→20:59)
[2018-08-01] MEDS: Sertraline 100 MG Tab PO SCH (20:56)
[2018-08-02] MEDS: HYOSCYAMINE 0.125 MG SL PRN (02:21)
[2018-08-02] MEDS: OXYCODONE 5 MG PO SCH ×2 (04:52→06:29)
[2018-08-02] MEDS: Ondansetron 8 MG Tab.DIS PO SCH ×4 (04:53→17:25)
[2018-08-02] MEDS: Acetaminophen 500 MG Tab PO SCH ×2 (06:07→16:25)
[2018-08-02] MEDS: Metoclopramide 5 MG Tab PO SCH ×4 (06:29→21:11)
[2018-08-02] MEDS: Omeprazole 20 MG Cap.CR PO SCH ×2 (06:29→17:25)
[2018-08-02] MEDS: buPROPion 150 MG Tab.ER PO SCH (08:07)
[2018-08-02] MEDS: Docusate Sodium 100 MG Cap PO SCH ×2 (08:07→21:10)
[2018-08-02] MEDS: Naloxegol Oxalate 25 MG Tab PO SCH (08:07)
[2018-08-02] MEDS: NYSTATIN TOP SCH (09:04)
[2018-08-02] MEDS: Polyethylene Glycol 3350 Powder 17 GM Packet PO SCH (09:04)
[2018-08-02] MEDS ORDERED: OXYCODONE 5 MG PO PRN (09:42)
[2018-08-02] MEDS ORDERED: Scopolamine 1.5 MG Transdermal Patch TRDERM PRN (09:48)
--- NOTE | 2018-08-02 09:53 | PCM.SN ---
- Free Text/Narrative Note: Patient has increasing pain and nausea. Medication/other adjustments --add fentanyl transdermal patch 12g every 72 --Changed oxycodone to when necessary for breakthrough --DC by mouth morphine --Lidoderm patch to coccyx area --Will consider prednisone for nausea --Discontinue hyoscyamine --Add scopolamine transdermal patch--monitor for anti-cholinergic effects --Small frequent appealing meals --Add metoprolol succinate for symptomatic tachycardia
[2018-08-02] MEDS ORDERED: Scopolamine 1.5 MG Transdermal Patch TRDERM SCH (11:30)
[2018-08-02] MEDS ORDERED: LIDOCAINE 4% TOP SCH (12:00)
[2018-08-02] MEDS: Metoprolol Succinate 50 MG Tab.ER PO SCH (12:29)
[2018-08-02] MEDS ORDERED: Atropine 1% Ophth Soln 5 ML BOTTLE SL PRN (14:00)
[2018-08-02] MEDS ORDERED: Promethazine Topical Gel 0.5 ML Syringe TOP PRN (14:00)
[2018-08-02] MEDS: Sertraline 100 MG Tab PO SCH (21:10)
[2018-08-02] MEDS: REMOVE LIDOCAINE TRDERM SCH (21:10)
[2018-08-03] MEDS: Acetaminophen 500 MG Tab PO SCH ×4 (00:05→22:10)
[2018-08-03] MEDS: Aluminum Hydroxide/Magnesium Hydroxide Susp 30 ML Cup PO PRN (01:25)
[2018-08-03] MEDS: Metoclopramide 5 MG Tab PO SCH (06:09)
[2018-08-03] MEDS: Omeprazole 20 MG Cap.CR PO SCH ×2 (06:09→16:00)
[2018-08-03] MEDS: Ondansetron 8 MG Tab.DIS PO SCH (06:10)
[2018-08-03] MEDS: buPROPion 150 MG Tab.ER PO SCH (08:37)
[2018-08-03] MEDS: Docusate Sodium 100 MG Cap PO SCH ×2 (08:37→20:42)
[2018-08-03] MEDS: Naloxegol Oxalate 25 MG Tab PO SCH (08:37)
[2018-08-03] MEDS: Metoprolol Succinate 50 MG Tab.ER PO SCH (08:37)
[2018-08-03] MEDS: Polyethylene Glycol 3350 Powder 17 GM Packet PO SCH (08:37)
[2018-08-03] MEDS: NYSTATIN TOP SCH (08:37)
--- NOTE | 2018-08-03 10:39 | PCM.SN ---
- Free Text/Narrative Note: As of today August 03, 2018 patient is in need of skilled coverage/swing bed Medication changes/adjustments Scopolamine patch for nausea Fentanyl 12 g transdermal every 72 hours Morphine 1 mg IV every 12 hours for respiratory distress Morphine 0.5 mg IV every hour as needed for breakthrough pain Zofran 4 mg every 4 hours scheduled for nausea Reglan 10 mg IV twice a day for nausea and constipation Lidoderm patch 4%, 2 patches every 12 hours
[2018-08-03] MEDS ORDERED: Diclofenac Sodium 1% Gel 100 GM Tube TOP PRN (10:59)
[2018-08-03] MEDS ORDERED: ALPRAZolam 0.25 MG Tab PO PRN (11:00)
[2018-08-03] MEDS ORDERED: Nystatin Topical Powder 15 GM Bottle TOP PRN (11:00)
[2018-08-03] MEDS ORDERED: oxyCODONE 5 MG Tab PO PRN (11:15)
[2018-08-03] MEDS ORDERED: Atropine 1% Ophth Soln 5 ML BOTTLE SL PRN (11:15)
[2018-08-03] MEDS: Morphine 2 MG/ML Syringe IVPUSH SCH ×2 (11:49→20:40)
[2018-08-03] MEDS: Metoclopramide 10 MG/2 ML SDV IVPUSH SCH ×2 (11:50→20:40)
[2018-08-03] MEDS: Ondansetron 4 MG/2 ML SDV IVPUSH SCH ×4 (11:50→22:09)
[2018-08-03] MEDS: REMOVE LIDOCAINE TRDERM SCH (20:43)
[2018-08-03] MEDS: Sertraline 50 MG Tab PO SCH (20:43)
[2018-08-04] MEDS: Ondansetron 4 MG/2 ML SDV IVPUSH SCH ×6 (02:58→23:17)
[2018-08-04] MEDS: Omeprazole 20 MG Cap.CR PO SCH ×2 (05:53→17:05)
[2018-08-04] MEDS: Acetaminophen 500 MG Tab PO SCH ×3 (05:59→23:37)
[2018-08-04] MEDS: Lidocaine 5% 700 MG Patch TOP SCH (08:48)
[2018-08-04] MEDS: Docusate Sodium 100 MG Cap PO SCH ×2 (08:48→21:51)
[2018-08-04] MEDS: Naloxegol Oxalate 25 MG Tab PO SCH (08:48)
[2018-08-04] MEDS: buPROPion 150 MG Tab.ER PO SCH (08:48)
[2018-08-04] MEDS: Morphine 2 MG/ML Syringe IVPUSH SCH ×2 (08:49→21:39)
[2018-08-04] MEDS: Metoprolol Succinate 50 MG Tab.ER PO SCH (08:49)
[2018-08-04] MEDS: Nystatin Topical Powder 15 GM Bottle TOP SCH (08:50)
[2018-08-04] MEDS: Metoclopramide 10 MG/2 ML SDV IVPUSH SCH ×2 (08:50→21:43)
[2018-08-04] MEDS: Polyethylene Glycol 3350 Powder 17 GM Packet PO SCH (09:04)
[2018-08-04] MEDS: Sodium Chloride 0.9% 10 ML Syringe FLUSH SCH ×3 (10:37→21:48)
[2018-08-04] MEDS ORDERED: LORazepam 2 MG/ML SDV IVPUSH PRN (10:39)
[2018-08-04] MEDS ORDERED: fentaNYL 12 MCG/HR Transdermal Patch TRDERM SCH ×2 (12:00)
[2018-08-04] MEDS: LORazepam 2 MG/ML SDV IVPUSH SCH (21:39)
[2018-08-04] MEDS: Sertraline 50 MG Tab PO SCH (21:51)
[2018-08-04] MEDS: Morphine 2 MG/ML Syringe IVPUSH PRN (23:17)
[2018-08-05] MEDS: Ondansetron 4 MG/2 ML SDV IVPUSH SCH ×6 (02:48→23:54)
[2018-08-05] MEDS: Promethazine Topical Gel 0.5 ML Syringe TOP PRN ×2 (04:03→17:41)
[2018-08-05] MEDS: Morphine 2 MG/ML Syringe IVPUSH PRN ×4 (04:07→22:48)
[2018-08-05] MEDS: Sodium Chloride 0.9% 10 ML Syringe FLUSH SCH ×3 (05:40→21:39)
[2018-08-05] MEDS: Omeprazole 20 MG Cap.CR PO SCH ×2 (05:41→17:45)
[2018-08-05] MEDS: Aluminum Hydroxide/Magnesium Hydroxide Susp 30 ML Cup PO PRN (05:51)
[2018-08-05] MEDS: Acetaminophen 500 MG Tab PO SCH ×3 (06:06→23:46)
[2018-08-05] MEDS: Morphine 2 MG/ML Syringe IVPUSH SCH ×2 (10:00→21:11)
[2018-08-05] MEDS: Docusate Sodium 100 MG Cap PO SCH ×2 (10:05→21:33)
[2018-08-05] MEDS: Naloxegol Oxalate 25 MG Tab PO SCH (10:05)
[2018-08-05] MEDS: buPROPion 150 MG Tab.ER PO SCH (10:05)
[2018-08-05] MEDS: Lidocaine 5% 700 MG Patch TOP SCH (10:09)
[2018-08-05] MEDS: Metoclopramide 10 MG/2 ML SDV IVPUSH SCH ×2 (10:15→21:09)
[2018-08-05] MEDS: Polyethylene Glycol 3350 Powder 17 GM Packet PO SCH (10:20)
[2018-08-05] MEDS: Scopolamine 1.5 MG Transdermal Patch TRDERM SCH (10:49)
[2018-08-05] MEDS: Metoprolol Succinate 50 MG Tab.ER PO SCH (10:50)
[2018-08-05] MEDS: Nystatin Topical Powder 15 GM Bottle TOP SCH (10:51)
[2018-08-05] MEDS: LORazepam 2 MG/ML SDV IVPUSH SCH (21:15)
[2018-08-05] MEDS: Sertraline 50 MG Tab PO SCH (21:34)
[2018-08-06] MEDS: Ondansetron 4 MG/2 ML SDV IVPUSH SCH ×6 (04:23→22:47)
[2018-08-06] MEDS: LORazepam 2 MG/ML SDV IVPUSH PRN ×6 (04:26→22:45)
[2018-08-06] MEDS ORDERED: Polyvinyl Alcohol 1.4% Ophth Soln 15 ML Bottle EYEBOTH PRN (04:38)
[2018-08-06] MEDS ORDERED: Carboxymethylcellulose Sodium 0.5% Ophth Soln 15 ML Bottle EYEBOTH PRN (04:48)
[2018-08-06] MEDS: Morphine 2 MG/ML Syringe IVPUSH PRN ×5 (06:06→22:46)
[2018-08-06] MEDS: Sodium Chloride 0.9% 10 ML Syringe FLUSH SCH ×7 (07:26→22:48)
[2018-08-06] MEDS: Omeprazole 20 MG Cap.CR PO SCH (07:28)
[2018-08-06] MEDS: Acetaminophen 500 MG Tab PO SCH (07:28)
[2018-08-06] MEDS: Polyethylene Glycol 3350 Powder 17 GM Packet PO SCH (09:15)
[2018-08-06] MEDS: Naloxegol Oxalate 25 MG Tab PO SCH (09:15)
[2018-08-06] MEDS: Docusate Sodium 100 MG Cap PO SCH (09:15)
[2018-08-06] MEDS: Nystatin Topical Powder 15 GM Bottle TOP SCH (09:15)
[2018-08-06] MEDS: buPROPion 150 MG Tab.ER PO SCH (09:16)
[2018-08-06] MEDS: Metoprolol Succinate 50 MG Tab.ER PO SCH (09:16)
[2018-08-06] MEDS: Lidocaine 5% 700 MG Patch TOP SCH (09:44)
[2018-08-06] MEDS: Morphine 2 MG/ML Syringe IVPUSH SCH (09:44)
[2018-08-06] MEDS: Metoclopramide 10 MG/2 ML SDV IVPUSH SCH ×2 (09:44→22:47)
[2018-08-06] MEDS: Glycopyrrolate 0.2 MG/ML 5 ML MDV SUBCUT PRN ×2 (18:29→22:49)
[2018-08-07] MEDS: LORazepam 2 MG/ML SDV IVPUSH PRN ×8 (00:42→21:50)
[2018-08-07] MEDS: Morphine 2 MG/ML Syringe IVPUSH PRN ×4 (00:43→05:20)
[2018-08-07] MEDS: Sodium Chloride 0.9% 10 ML Syringe FLUSH SCH ×12 (01:07→21:50)
[2018-08-07] MEDS: Ondansetron 4 MG/2 ML SDV IVPUSH SCH ×3 (02:37→11:12)
[2018-08-07] MEDS ORDERED: Morphine 2 MG/ML Syringe IVPUSH ONE (06:02)
[2018-08-07] MEDS ORDERED: Morphine 10 MG/ML Syringe ONE (06:36)
[2018-08-07] MEDS: Morphine PF 30 MG/30 ML PCA Vial IV SCH (06:54)
[2018-08-07] MEDS: Metoclopramide 10 MG/2 ML SDV IVPUSH SCH ×2 (08:48→21:48)
[2018-08-07] MEDS ORDERED: Pantoprazole 40 MG Vial IVPUSH SCH (09:00)
[2018-08-07] MEDS: Lidocaine 5% 700 MG Patch TOP SCH (09:32)
[2018-08-07] MEDS ORDERED: Ondansetron 4 MG/2 ML SDV IVPUSH PRN (11:40)
[2018-08-07] MEDS: Glycopyrrolate 0.2 MG/ML 5 ML MDV SUBCUT PRN ×3 (15:16→21:52)
[2018-08-08] MEDS: Glycopyrrolate 0.2 MG/ML 5 ML MDV SUBCUT PRN ×3 (00:30→13:15)
--- NOTE | 2018-08-08 00:53 | PCM.PN ---
- General Info Date of Service: 08/07/18 Subjective Update: Patient is resting comfortably in hospital bed. Not responsive and therefore unable to obtain history of present illness review of systems. Family has bedside voices no current concerns, as she has been doing much better since initiation of morphine METAL REED TUNER. Nursing also concurs that patient is much less restless since initiation of morphine METAL REED TUNER and current medication regimen. - Patient Data Vitals - Most Recent: Last Vital Signs Temp 37.2 C 08/03/18 06:29 Pulse 118 H 08/05/18 10:50 Resp 24 H 08/05/18 21:53 BP 122/76 08/05/18 10:50 Pulse Ox 82 L 08/07/18 06:37 Weight - Most Recent: 78.642 kg Med Orders - Current: Current Medications Artificial Tears (Refresh Tears 0.5%) 0 ml EYEBOTH ASDIRECTED PRN PRN Reason: Dry Eyes Glycopyrrolate (Robinul) 0.2 mg SUBCUT Q2H PRN PRN Reason: Other Last Admin: 08/08/18 00:30 Dose: 0.2 mg Lidocaine (Lidoderm 5%) 700 mg TOP Q24H [facility] Last Admin: 08/07/18 09:32 Dose: 700 mg Lorazepam (Ativan) 1 mg IVPUSH Q30M PRN PRN Reason: Anxiety Last Admin: 08/07/18 21:50 Dose: 1 mg Metoclopramide HCl (Reglan) 10 mg IVPUSH BID [facility] Last Admin: 08/07/18 21:48 Dose: 10 mg Miscellaneous Information (Remove Patch) 1 ea TRDERM 2100 [facility] Last Admin: 08/07/18 21:49 Dose: 1 ea Morphine Sulfate (Morphine Fabric Separator Operator 30 Mg In 30 Ml) 0 mg IV ASDIRECTED [facility]; Protocol Last Admin: 08/07/18 06:54 Dose: 30 mg Ondansetron HCl (Zofran) 4 mg IVPUSH Q4H PRN PRN Reason: Nausea Poloxamer (Plo Gel) 0.5 ml TOP TID PRN PRN Reason: Nausea/Vomiting Last Admin: 08/05/18 17:41 Dose: 0.5 ml Scopolamine (Transderm-Scop) 1.5 mg TRDERM Q72H [facility] Last Admin: 08/05/18 10:49 Dose: 1.5 mg Sodium Chloride (Saline Flush) 10 ml FLUSH Q8HR [facility] Last Admin: 08/07/18 21:50 Dose: 10 ml Discontinued Medications Acetaminophen (Tylenol Extra Strength) 1,000 mg PO Q8H [facility] Last Admin: 07/21/18 20:13 Dose: 1,000 mg Acetaminophen (Tylenol Extra Strength) 1,000 mg PO Q8H [facility] Last Admin: 08/06/18 07:28 Dose: Not Given Al Hydroxide/Mg Hydroxide (Mag-Al Susp) 30 ml PO Q6H PRN PRN Reason: Indigestion Last Admin: 08/05/18 05:51 Dose: 30 ml Alprazolam (Xanax) 0.25 mg PO Q8H PRN PRN Reason: Anxiety Alprazolam (Xanax) 0.25 mg PO Q8H PRN PRN Reason: Anxiety Last Admin: 08/03/18 20:44 Dose: 0.25 mg Atropine Sulfate (Atropine 1% Ophth Soln) 0 ml SL Q1H PRN PRN Reason: secretions Atropine Sulfate (Atropine 1% Ophth Soln) 0 ml SL Q1H PRN PRN Reason: secretions Last Admin: 08/06/18 06:21 Dose: 5 ml Bisacodyl (Dulcolax) 10 mg RECTAL DAILY PRN PRN Reason: Constipation Bupropion HCl (Wellbutrin Xl) 150 mg PO DAILY [facility] Last Admin: 07/22/18 08:27 Dose: 150 mg Bupropion HCl (Wellbutrin Xl) 150 mg PO DAILY [facility] Last Admin: 08/06/18 09:16 Dose: Not Given Diclofenac Sodium (Voltaren 1% Gel) 1 gm TOP QID PRN PRN Reason: mild pain Diclofenac Sodium (Voltaren 1% Gel) 1 gm TOP QID PRN PRN Reason: mild pain Docusate Sodium (Colace) 100 mg PO BID [facility] Last Admin: 08/06/18 09:15 Dose: Not Given Fentanyl (Duragesic) 12 mcg TRDERM Q72H [facility] Last Admin: 08/04/18 11:06 Dose: Not Given Hyoscyamine (Hyomax-Sl) 0.125 mg SL Q4H PRN PRN Reason: Nausea Last Admin: 08/02/18 02:21 Dose: 0.125 mg Lorazepam (Ativan) 0.5 mg IVPUSH BEDTIME [facility] Last Admin: 08/05/18 21:15 Dose: 0.5 mg Lorazepam (Ativan) 0.5 mg IVPUSH Q4H PRN PRN Reason: Anxiety Last Admin: 08/05/18 22:55 Dose: 0.5 mg Lorazepam (Ativan) 0.5 mg IVPUSH Q1H PRN PRN Reason: Anxiety Last Admin: 08/07/18 05:19 Dose: 0.5 mg Metoclopramide HCl (Reglan) 5 mg PO QIDACANDBED [facility] Last Admin: 07/22/18 07:15 Dose: 5 mg Metoclopramide HCl (Reglan) 5 mg PO QIDACANDBED [facility] Last Admin: 07/22/18 12:04 Dose: Not Given Metoclopramide HCl (Reglan) Confirm Administered Dose 10 mg .ROUTE .STK-MED ONE Stop: 07/23/18 06:29 Last Admin: 07/23/18 07:29 Dose: Not Given Metoprolol Succinate (Toprol Xl) 50 mg PO DAILY [facility] Last Admin: 08/06/18 09:16 Dose: Not Given Miscellaneous Information (Remove Patch) 2 ea TRDERM Q24H [facility] Stop: 08/03/18 23:59 Last Admin: 08/03/18 20:43 Dose: Not Given Morphine Sulfate (Morphine 20 Mg/Ml Soln) 5 mg PO Q4H PRN PRN Reason: Pain (severe 7-10) Morphine Sulfate (Morphine) 1 mg IVPUSH BID [facility] Last Admin: 08/06/18 09:44 Dose: 1 mg Morphine Sulfate (Morphine) 0.5 mg IVPUSH Q1H PRN PRN Reason: Respiratory Distress Last Admin: 08/07/18 05:20 Dose: 0.5 mg Morphine Sulfate (Morphine) 2 mg IVPUSH ONETIME ONE Stop: 08/07/18 06:03 Last Admin: 08/07/18 06:18 Dose: 2 mg Morphine Sulfate (Morphine) Confirm Administered Dose 30 mg .ROUTE .STK-MED ONE Stop: 08/07/18 06:37 Last Admin: 08/07/18 09:22 Dose: Not Given Naloxegol (Movantik) 25 mg PO DAILY [facility] Last Admin: 07/22/18 08:27 Dose: 25 mg Naloxegol (Movantik) 25 mg PO DAILY [facility] Last Admin: 08/06/18 09:15 Dose: Not Given Nystatin (Nystop) 0 gm TOP DAILY [facility] Last Admin: 07/22/18 08:30 Dose: Not Given Nystatin (Nystop) 0 gm TOP TID PRN PRN Reason: Rash Nystatin (Nystop) 0 gm TOP DAILY [facility] Last Admin: 08/06/18 09:15 Dose: Not Given Nystatin (Nystop) 0 gm TOP TID PRN PRN Reason: Rash Omeprazole (Omeprazole) 20 mg PO BID@0600,1700 [facility] Last Admin: 07/22/18 05:52 Dose: 20 mg Omeprazole (Omeprazole) Confirm Administered Dose 20 mg .ROUTE .[employer] ONE Stop: 07/23/18 06:29 Last Admin: 07/23/18 07:29 Dose: Not Given Omeprazole (Omeprazole) 20 mg PO BID@0600,1700 [facility] Last Admin: 08/06/18 07:28 Dose: Not Given Ondansetron HCl (Zofran Odt) 4 mg PO TIDAC [facility] Last Admin: 07/22/18 12:04 Dose: Not Given Ondansetron HCl (Zofran Odt) Confirm Administered Dose 8 mg .ROUTE .[employer] ONE Stop: 07/23/18 06:30 Last Admin: 07/23/18 07:29 Dose: Not Given Ondansetron HCl (Zofran) 4 mg IVPUSH Q4H [facility] Last Admin: 08/07/18 11:12 Dose: 4 mg Oxycodone HCl (Oxycodone) 5 mg PO Q6H [facility] Last Admin: 07/22/18 00:29 Dose: 5 mg Oxycodone HCl (Oxycodone) 5 mg PO Q6H [facility] Last Admin: 07/22/18 05:52 Dose: 5 mg Oxycodone HCl (Oxycodone) 5 mg PO Q6H PRN PRN Reason: Pain Oxycodone HCl (Oxycodone) 5 mg PO Q6H PRN PRN Reason: Breakthrough Pain Pantoprazole Sodium (Protonix Iv) 40 mg IVPUSH DAILY [facility] Last Admin: 08/07/18 08:48 Dose: 40 mg Ondansetron 8 Mg Tab (.Dis) 1 each PO TIDAC [facility] Last Admin: 08/03/18 06:10 Dose: 1 each Metoclopramide 5 Mg (Tab) 1 each PO QIDACANDBED [facility] Last Admin: 08/03/18 06:09 Dose: Not Given Alprazolam 0.25 Mg (Tab) 1 each PO Q8H PRN PRN Reason: Anxiety Last Admin: 08/02/18 21:50 Dose: 1 each Bupropion 150 Mg Tab (.Er) 1 each PO DAILY [facility] Last Admin: 08/03/18 08:37 Dose: 1 each Diclofenac Sodium 1% (Gel 100 Gm Tube) 1 each TOP QID PRN PRN Reason: mild pain Naloxegol Oxalate 25 (Mg Tab) 1 each PO DAILY [facility] Last Admin: 08/03/18 08:37 Dose: 1 each Nystatin Topical (Powder) 0 each TOP DAILY [facility] Last Admin: 08/03/18 08:37 Dose: Not Given Nystatin Topical (Powder) 0 each TOP TID PRN PRN Reason: Rash Omeprazole 20 Mg Cap (.Cr) 1 each PO BID@0600,1700 [facility] Last Admin: 08/03/18 06:09 Dose: Not Given Ramelteon 8 Mg Tab 1 each PO BEDTIME [facility] Last Admin: 08/02/18 21:10 Dose: Not Given Sertraline 100 Mg (Tab) 1.5 each PO BEDTIME [facility] Last Admin: 08/02/18 21:10 Dose: Not Given Oxycodone 5 Mg Tab 1 each PO Q6H PRN PRN Reason: Pain Last Admin: 07/30/18 08:54 Dose: 1 each Hyoscyamine 0.125 Mg (Tab.Sl) 1 each PO Q6HR [facility] Last Admin: 07/28/18 06:08 Dose: 1 each Patient's Own Medication Oxycodone 5mg 1 each PO Q6H [facility] Last Admin: 08/02/18 06:29 Dose: 1 each Metoprolol Succinate (50 Mg Tab.Er) 1 each PO DAILY [facility] Last Admin: 08/03/18 08:37 Dose: 1 each Oxycodone 5mg Tablet 1 each PO Q6H PRN PRN Reason: Breakthrough Pain Last Admin: 08/03/18 02:20 Dose: 1 each Fentanyl 12 Mcg/Hr (Transdermal Patch) 1 each TRDERM Q72H [facility] Lidocaine 4% Gel- (Patch) 2 each TOP Q24H [facility] Last Admin: 08/02/18 12:24 Dose: 2 each Scopolamine 1.5 Mg (Transdermal Patch) 1 each TRDERM Q72H PRN PRN Reason: Nausea Scopolamine 1.5 Mg (Transdermal Patch) 1 each TRDERM Q72H [facility] Last Admin: 08/02/18 12:24 Dose: 1 each Atropine 1% Ophth (Soln 5 Ml Bottle) 0 each SL Q1H PRN PRN Reason: secretions Promethazine Topical (Gel 0.5 Ml Syringe) 1 each TOP TID PRN PRN Reason: Nausea/Vomiting Polyethylene Glycol (Miralax) 17 gm PO DAILY [facility] Last Admin: 08/06/18 09:15 Dose: Not Given Promethazine HCl (Phenergan) 0 ml TOP TID PRN PRN Reason: Nausea/Vomiting Last Admin: 08/02/18 04:50 Dose: 0.5 ml Ramelteon (Rozerem) 8 mg PO BEDTIME [facility] Last Admin: 07/21/18 20:12 Dose: 8 mg Ramelteon (Rozerem) 8 mg PO BEDTIME [facility] Last Admin: 08/05/18 21:33 Dose: Not Given Scopolamine (Transderm-Scop) 1.5 mg TRDERM Q72H [facility] Last Admin: 07/27/18 19:49 Dose: 1.5 mg Senna/Docusate Sodium (Senna Plus) 1 tab PO BEDTIME [facility] Last Admin: 08/05/18 21:34 Dose: Not Given Sertraline HCl (Zoloft) 150 mg PO BEDTIME [facility] Last Admin: 07/21/18 20:12 Dose: 150 mg Sertraline HCl (Zoloft) 150 mg PO BEDTIME [facility] Last Admin: 08/05/18 21:34 Dose: Not Given Simethicone (Simethicone) 80 mg PO Q6H PRN PRN Reason: Gas relief - Exam Physical Findings Comments:: Unresponsive to verbal or light tactile stimuli. Appears comfortable without grimacing. Mildly tachypnea. Tachycardic. Distended abdomen. Pale. Extremities mildly cool, but without mottling. - Problem List Review Problem List Initiated/Reviewed/Updated: Yes - My Orders Last 24 Hours: My Active Orders 08/07/18 06:01 Morphine PF [Morphine METAL REED TUNER 30 MG in 30 ML] See Protocol IV ASDIRECTED 08/07/18 06:03 LORazepam [Ativan] 1 mg IVPUSH Q30M PRN 08/07/18 11:40 Ondansetron [Zofran] 4 mg IVPUSH Q4H PRN - Plan Plan:: HPI Summary: Rhonda is a 77-year-old female who returned back to swing bed status at [facility] after she was transferred temporarily to [facility] after having developed a significant malignant right-sided pleural effusion necessitating drainage and subsequent chest tube. 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 Following family care conference and discussion with Dr. Epstein, patient decided to return to swing bed on comfort cares only. She had previously been in swing bed at [facility] since October 2017 undergoing PT; see prior discharge summary for details on her previous stay. 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 Her pain and restlessness increased in the past 12 hours, necessitating morphine METAL REED TUNER, which has allowed her to be much more comfortable. Spent time with family at bedside counseling on current status, and dying process, and providing grief support. Anticipate in the coming days. - Continue morphine infusion for pain and air hunger - Continue lidoderm patch for local LUE pain - Continue lorazepam for restlessness/agitation - Continue metoclopromide, ondansetron, and PLO for nausea - Continue glycopyrrolate and scopolamine for secretions - Continue ophthalmic and oral supportive cares - Continue oxygen supplementation for respiratory comfort - Continue supportive cares for patient and family
[2018-08-08] MEDS: LORazepam 2 MG/ML SDV IVPUSH PRN ×3 (03:45→14:08)
[2018-08-08] MEDS: Sodium Chloride 0.9% 10 ML Syringe FLUSH SCH ×2 (06:31→09:28)
[2018-08-08] MEDS: Lidocaine 5% 700 MG Patch TOP SCH (09:03)
[2018-08-08] MEDS: Scopolamine 1.5 MG Transdermal Patch TRDERM SCH (09:04)
[2018-08-08] MEDS: Metoclopramide 10 MG/2 ML SDV IVPUSH SCH (09:04)
[2018-08-08] MEDS ORDERED: Morphine 10 MG/ML Syringe ONE (09:55)
[2018-08-08] MEDS: Morphine PF 30 MG/30 ML PCA Vial IV SCH (10:23)
[2018-08-08] MEDS ORDERED: Saliva Substitute Oral Spray 120 ML Bottle MUCMEM PRN (14:15)
--- NOTE | 2018-08-08 22:35 | PCM.DCSUM1 ---
Discharge Summary - Hospital Course Free Text/Narrative:: Date of admission: 07/21/18 Date of discharge: 08/08/18 Final discharge diagnoses: # Metastatic endometrial cancer with peritoneal carcinomatosis and metastatic pleural effusion # CAD # HTN # Aortic stenosis # History of atrial flutter # GERD # T2DM with retinopathy # CKD, stage 3 # Gout # Hyperlipidemia # Protein calorie malnutrition # Osteoarthritis # Left bicipital tendon rupture # Left humeral head fracture # Depression, major recurrent # Generalized anxiety disorder # Pressure injury of sacral region, stage 3, POA # Deconditioning, profound Consultations: None Procedures: None Hospital course: Rhonda is a 77-year-old female who returned back to swing bed status at [facility] after she was transferred temporarily to [facility] after having developed a significant malignant right-sided pleural effusion necessitating drainage and subsequent chest tube. Patient has incurable and terminal peritoneal carcinomatosis and malignant ascites secondary to endometrial cancer and was returned to us after her chest tube was discontinued and sealed. Following family care conference and discussion with Dr. Epstein , patient decided to return to swing bed on comfort cares only. She had previously been in swing bed at [facility] since October 2017 undergoing PT. Throughout her stay, she had progressive decline and became less responsive. Morphine infusion via [employer] was initiated for respiratory hunger and pain. Restlessness, secretions, and nausea were managed with as needed mediations. She was pronounced on 08/08/18 at 1612. Primary cause of : Metastatic endometrial cancer with onset of endometrial cancer in 2009 and evidence of metastasis initially noted 08/2017. - Discharge Data Discharge Date: 08/08/18 Discharge Disposition: 20 Preliminary Cause of *Q: Multi System Organ Failure Event(s) Leading to Patient's *Q: Metastatic endometrial cancer Condition: - Patient Summary/Data Consults: Consultations 07/26/18 13:05 Consult to Physical Therapy [PT Evaluation and Treatment] [CONS] Routine - Discharge Plan *PRESCRIPTION DRUG MONITORING PROGRAM REVIEWED*: Not Applicable *COPY OF PRESCRIPTION DRUG MONITORING REPORT IN PATIENT SAM: Not Applicable Home Medications: Home Meds Omeprazole 20 mg PO BID@0600,1700 09/29/17 [History] Polyethylene Glycol 3350 [MiraLAX] 17 gm PO DAILY 09/29/17 [History] Prochlorperazine [Compazine] 10 mg PO QID PRN 09/29/17 [History] Sertraline HCl 150 mg PO BEDTIME 09/29/17 [History] Acetaminophen [Extra Strength Non-Aspirin] 1,000 mg PO Q8H 10/22/17 [History] Naloxegol Oxalate [Movantik] 25 mg PO DAILY 10/22/17 [History] Sennosides/Docusate Sodium [Senna Plus Tablet] 1 tab PO BEDTIME 10/22/17 [ History] oxyCODONE 5 mg PO Q6H 10/22/17 [History] ALPRAZolam [Alprazolam] 0.25 mg PO Q8H PRN 07/15/18 [History] Alum Hydroxide/Mag Hydroxide [Mag-Al] 30 ml PO Q6H PRN 07/15/18 [History] Bisacodyl 10 mg RC DAILY PRN 07/15/18 [History] Diclofenac Sodium [Voltaren 1%] 1 gm TP QID PRN 07/15/18 [History] Docusate Sodium 100 mg PO BID 07/15/18 [History] Nystatin 1 applic TP TID PRN 07/15/18 [History] Ondansetron [Zofran ODT] 8 mg PO TIDAC 07/15/18 [History] Ramelteon [Rozerem] 8 mg PO BEDTIME 07/15/18 [History] Simethicone 80 mg PO Q6H PRN 07/15/18 [History] buPROPion [buPROPion XL] 150 mg PO DAILY 07/15/18 [History] Atropine 1% [Atropine 1% Ophth Soln] 1 - 2 drop SL Q1H PRN 07/21/18 [History] LORazepam [LORazepam Intensol] 0.5 mg PO Q4HR PRN 07/21/18 [History] Metoclopramide [Reglan] 5 mg PO QIDACANDBED 07/21/18 [History] Morphine [Morphine 20 MG/ML Soln] 5 mg PO Q4H PRN 07/21/18 [History] Nystatin 1 applic TP DAILY 07/21/18 [History] - Discharge Summary/Plan Comment DC Time >30 min.: Yes - General Info Date of Service: 08/08/18 - Patient Data Vitals - Most Recent: Last Vital Signs Temp 37.2 C 08/03/18 06:29 Pulse 118 H 08/05/18 10:50 Resp 24 H 08/05/18 21:53 BP 122/76 08/05/18 10:50 Pulse Ox 82 L 08/07/18 06:37 Weight - Most Recent: 78.642 kg Med Orders - Current: Current Medications Discontinued Medications Acetaminophen (Tylenol Extra Strength) 1,000 mg PO Q8H [facility] Last Admin: 07/21/18 20:13 Dose: 1,000 mg Acetaminophen (Tylenol Extra Strength) 1,000 mg PO Q8H [facility] Last Admin: 08/06/18 07:28 Dose: Not Given Al Hydroxide/Mg Hydroxide (Mag-Al Susp) 30 ml PO Q6H PRN PRN Reason: Indigestion Last Admin: 08/05/18 05:51 Dose: 30 ml Alprazolam (Xanax) 0.25 mg PO Q8H PRN PRN Reason: Anxiety Alprazolam (Xanax) 0.25 mg PO Q8H PRN PRN Reason: Anxiety Last Admin: 08/03/18 20:44 Dose: 0.25 mg Artificial Tears (Refresh Tears 0.5%) 0 ml EYEBOTH ASDIRECTED PRN PRN Reason: Dry Eyes Atropine Sulfate (Atropine 1% Ophth Soln) 0 ml SL Q1H PRN PRN Reason: secretions Atropine Sulfate (Atropine 1% Ophth Soln) 0 ml SL Q1H PRN PRN Reason: secretions Last Admin: 08/06/18 06:21 Dose: 5 ml Bisacodyl (Dulcolax) 10 mg RECTAL DAILY PRN PRN Reason: Constipation Bupropion HCl (Wellbutrin Xl) 150 mg PO DAILY [facility] Last Admin: 07/22/18 08:27 Dose: 150 mg Bupropion HCl (Wellbutrin Xl) 150 mg PO DAILY [facility] Last Admin: 08/06/18 09:16 Dose: Not Given Diclofenac Sodium (Voltaren 1% Gel) 1 gm TOP QID PRN PRN Reason: mild pain Diclofenac Sodium (Voltaren 1% Gel) 1 gm TOP QID PRN PRN Reason: mild pain Docusate Sodium (Colace) 100 mg PO BID [facility] Last Admin: 08/06/18 09:15 Dose: Not Given Fentanyl (Duragesic) 12 mcg TRDERM Q72H [facility] Last Admin: 08/04/18 11:06 Dose: Not Given Glycopyrrolate (Robinul) 0.2 mg SUBCUT Q2H PRN PRN Reason: Other Last Admin: 08/08/18 13:15 Dose: 0.2 mg Hyoscyamine (Hyomax-Sl) 0.125 mg SL Q4H PRN PRN Reason: Nausea Last Admin: 08/02/18 02:21 Dose: 0.125 mg Lidocaine (Lidoderm 5%) 700 mg TOP Q24H [facility] Last Admin: 08/08/18 09:03 Dose: 700 mg Lorazepam (Ativan) 0.5 mg IVPUSH BEDTIME [facility] Last Admin: 08/05/18 21:15 Dose: 0.5 mg Lorazepam (Ativan) 0.5 mg IVPUSH Q4H PRN PRN Reason: Anxiety Last Admin: 08/05/18 22:55 Dose: 0.5 mg Lorazepam (Ativan) 0.5 mg IVPUSH Q1H PRN PRN Reason: Anxiety Last Admin: 08/07/18 05:19 Dose: 0.5 mg Lorazepam (Ativan) 1 mg IVPUSH Q30M PRN PRN Reason: Anxiety Last Admin: 08/08/18 14:08 Dose: 1 mg Metoclopramide HCl (Reglan) 5 mg PO QIDACANDBED [facility] Last Admin: 07/22/18 07:15 Dose: 5 mg Metoclopramide HCl (Reglan) 5 mg PO QIDACANDBED [facility] Last Admin: 07/22/18 12:04 Dose: Not Given Metoclopramide HCl (Reglan) Confirm Administered Dose 10 mg .ROUTE .STK-MED ONE Stop: 07/23/18 06:29 Last Admin: 07/23/18 07:29 Dose: Not Given Metoclopramide HCl (Reglan) 10 mg IVPUSH BID [facility] Last Admin: 08/08/18 09:04 Dose: 10 mg Metoprolol Succinate (Toprol Xl) 50 mg PO DAILY [facility] Last Admin: 08/06/18 09:16 Dose: Not Given Miscellaneous Information (Remove Patch) 2 ea TRDERM Q24H [facility] Stop: 08/03/18 23:59 Last Admin: 08/03/18 20:43 Dose: Not Given Miscellaneous Information (Remove Patch) 1 ea TRDERM 2100 [facility] Last Admin: 08/07/18 21:49 Dose: 1 ea Morphine Sulfate (Morphine 20 Mg/Ml Soln) 5 mg PO Q4H PRN PRN Reason: Pain (severe 7-10) Morphine Sulfate (Morphine) 1 mg IVPUSH BID [facility] Last Admin: 08/06/18 09:44 Dose: 1 mg Morphine Sulfate (Morphine) 0.5 mg IVPUSH Q1H PRN PRN Reason: Respiratory Distress Last Admin: 08/07/18 05:20 Dose: 0.5 mg Morphine Sulfate (Morphine) 2 mg IVPUSH ONETIME ONE Stop: 08/07/18 06:03 Last Admin: 08/07/18 06:18 Dose: 2 mg Morphine Sulfate (Morphine Dirt Supervisor 30 Mg In 30 Ml) 0 mg IV ASDIRECTED [facility]; Protocol Last Admin: 08/08/18 10:23 Dose: 30 mg Morphine Sulfate (Morphine) Confirm Administered Dose 30 mg .ROUTE .STK-MED ONE Stop: 08/07/18 06:37 Last Admin: 08/07/18 09:22 Dose: Not Given Morphine Sulfate (Morphine) Confirm Administered Dose 30 mg .ROUTE .STK-MED ONE Stop: 08/08/18 09:56 Last Admin: 08/08/18 10:31 Dose: Not Given Naloxegol (Movantik) 25 mg PO DAILY [facility] Last Admin: 07/22/18 08:27 Dose: 25 mg Naloxegol (Movantik) 25 mg PO DAILY [facility] Last Admin: 08/06/18 09:15 Dose: Not Given Nystatin (Nystop) 0 gm TOP DAILY [facility] Last Admin: 07/22/18 08:30 Dose: Not Given Nystatin (Nystop) 0 gm TOP TID PRN PRN Reason: Rash Nystatin (Nystop) 0 gm TOP DAILY [facility] Last Admin: 08/06/18 09:15 Dose: Not Given Nystatin (Nystop) 0 gm TOP TID PRN PRN Reason: Rash Omeprazole (Omeprazole) 20 mg PO BID@0600,1700 [facility] Last Admin: 07/22/18 05:52 Dose: 20 mg Omeprazole (Omeprazole) Confirm Administered Dose 20 mg .ROUTE .STK-MED ONE Stop: 07/23/18 06:29 Last Admin: 07/23/18 07:29 Dose: Not Given Omeprazole (Omeprazole) 20 mg PO BID@0600,1700 [facility] Last Admin: 08/06/18 07:28 Dose: Not Given Ondansetron HCl (Zofran Odt) 4 mg PO TIDAC [facility] Last Admin: 07/22/18 12:04 Dose: Not Given Ondansetron HCl (Zofran Odt) Confirm Administered Dose 8 mg .ROUTE .STK-MED ONE Stop: 07/23/18 06:30 Last Admin: 07/23/18 07:29 Dose: Not Given Ondansetron HCl (Zofran) 4 mg IVPUSH Q4H [facility] Last Admin: 08/07/18 11:12 Dose: 4 mg Ondansetron HCl (Zofran) 4 mg IVPUSH Q4H PRN PRN Reason: Nausea Oxycodone HCl (Oxycodone) 5 mg PO Q6H [facility] Last Admin: 07/22/18 00:29 Dose: 5 mg Oxycodone HCl (Oxycodone) 5 mg PO Q6H [facility] Last Admin: 07/22/18 05:52 Dose: 5 mg Oxycodone HCl (Oxycodone) 5 mg PO Q6H PRN PRN Reason: Pain Oxycodone HCl (Oxycodone) 5 mg PO Q6H PRN PRN Reason: Breakthrough Pain Pantoprazole Sodium (Protonix Iv) 40 mg IVPUSH DAILY [facility] Last Admin: 08/07/18 08:48 Dose: 40 mg Ondansetron 8 Mg Tab (.Dis) 1 each PO TIDAC [facility] Last Admin: 08/03/18 06:10 Dose: 1 each Metoclopramide 5 Mg (Tab) 1 each PO QIDACANDBED [facility] Last Admin: 08/03/18 06:09 Dose: Not Given Alprazolam 0.25 Mg (Tab) 1 each PO Q8H PRN PRN Reason: Anxiety Last Admin: 08/02/18 21:50 Dose: 1 each Bupropion 150 Mg Tab (.Er) 1 each PO DAILY [facility] Last Admin: 08/03/18 08:37 Dose: 1 each Diclofenac Sodium 1% (Gel 100 Gm Tube) 1 each TOP QID PRN PRN Reason: mild pain Naloxegol Oxalate 25 (Mg Tab) 1 each PO DAILY [facility] Last Admin: 08/03/18 08:37 Dose: 1 each Nystatin Topical (Powder) 0 each TOP DAILY [facility] Last Admin: 08/03/18 08:37 Dose: Not Given Nystatin Topical (Powder) 0 each TOP TID PRN PRN Reason: Rash Omeprazole 20 Mg Cap (.Cr) 1 each PO BID@0600,1700 [facility] Last Admin: 08/03/18 06:09 Dose: Not Given Ramelteon 8 Mg Tab 1 each PO BEDTIME [facility] Last Admin: 08/02/18 21:10 Dose: Not Given Sertraline 100 Mg (Tab) 1.5 each PO BEDTIME [facility] Last Admin: 08/02/18 21:10 Dose: Not Given Oxycodone 5 Mg Tab 1 each PO Q6H PRN PRN Reason: Pain Last Admin: 07/30/18 08:54 Dose: 1 each Hyoscyamine 0.125 Mg (Tab.Sl) 1 each PO Q6HR [facility] Last Admin: 07/28/18 06:08 Dose: 1 each Patient's Own Medication Oxycodone 5mg 1 each PO Q6H [facility] Last Admin: 08/02/18 06:29 Dose: 1 each Metoprolol Succinate (50 Mg Tab.Er) 1 each PO DAILY [facility] Last Admin: 08/03/18 08:37 Dose: 1 each Oxycodone 5mg Tablet 1 each PO Q6H PRN PRN Reason: Breakthrough Pain Last Admin: 08/03/18 02:20 Dose: 1 each Fentanyl 12 Mcg/Hr (Transdermal Patch) 1 each TRDERM Q72H [facility] Lidocaine 4% Gel- (Patch) 2 each TOP Q24H [facility] Last Admin: 08/02/18 12:24 Dose: 2 each Scopolamine 1.5 Mg (Transdermal Patch) 1 each TRDERM Q72H PRN PRN Reason: Nausea Scopolamine 1.5 Mg (Transdermal Patch) 1 each TRDERM Q72H [facility] Last Admin: 08/02/18 12:24 Dose: 1 each Atropine 1% Ophth (Soln 5 Ml Bottle) 0 each SL Q1H PRN PRN Reason: secretions Promethazine Topical (Gel 0.5 Ml Syringe) 1 each TOP TID PRN PRN Reason: Nausea/Vomiting Poloxamer (Plo Gel) 0.5 ml TOP TID PRN PRN Reason: Nausea/Vomiting Last Admin: 08/05/18 17:41 Dose: 0.5 ml Polyethylene Glycol (Miralax) 17 gm PO DAILY [facility] Last Admin: 08/06/18 09:15 Dose: Not Given Promethazine HCl (Phenergan) 0 ml TOP TID PRN PRN Reason: Nausea/Vomiting Last Admin: 08/02/18 04:50 Dose: 0.5 ml Ramelteon (Rozerem) 8 mg PO BEDTIME [facility] Last Admin: 07/21/18 20:12 Dose: 8 mg Ramelteon (Rozerem) 8 mg PO BEDTIME [facility] Last Admin: 08/05/18 21:33 Dose: Not Given Saliva Substitute (Jamie-Stir Oral Burley) 1 ml MUCMEM ASDIRECTED PRN PRN Reason: Dryness Scopolamine (Transderm-Scop) 1.5 mg TRDERM Q72H [facility] Last Admin: 07/27/18 19:49 Dose: 1.5 mg Scopolamine (Transderm-Scop) 1.5 mg TRDERM Q72H [facility] Last Admin: 08/08/18 09:04 Dose: 1.5 mg Senna/Docusate Sodium (Senna Plus) 1 tab PO BEDTIME [facility] Last Admin: 08/05/18 21:34 Dose: Not Given Sertraline HCl (Zoloft) 150 mg PO BEDTIME [facility] Last Admin: 07/21/18 20:12 Dose: 150 mg Sertraline HCl (Zoloft) 150 mg PO BEDTIME [facility] Last Admin: 08/05/18 21:34 Dose: Not Given Simethicone (Simethicone) 80 mg PO Q6H PRN PRN Reason: Gas relief Sodium Chloride (Saline Flush) 10 ml FLUSH Q8HR [facility] Last Admin: 08/08/18 09:28 Dose: 10 ml - Exam Physical Findings Comments:: Unresponsive to verbal or light tactile stimuli. Appears comfortable without grimacing. Tachypnea. Tachycardic. Distended abdomen. Pale. Extremities mildly cool, but without mottling.
== END 2018-08-08 16:12 | disposition expired | DRG 945 ==
LOC: KA.MS 14:15
PROVIDERS: ADMIT Nurse Practitioner Family; ATTEND Family Medicine
PROC: F07Z9ZZ Gait Training/Functional Ambulation Treatment (ICD-10-PCS; principal; 2018-07-27)
PROC: F07M6ZZ Therapeutic Exercise Treatment of Musculoskeletal System - Whole Body (ICD-10-PCS; 2018-07-27)
PROC: F07M7ZZ Manual Therapy Techniques Treatment of Musculoskeletal System - Whole Body (ICD-10-PCS; 2018-07-27)
DX: Z51.5 Encounter for palliative care (principal); L89.153 Pressure ulcer of sacral region, stage 3; C78.6 Secondary malignant neoplasm of retroperitoneum and peritoneum; J91.0 Malignant pleural effusion; F33.9 Major depressive disorder, recurrent, unspecified; E46 Unspecified protein-calorie malnutrition; Z66 Do not resuscitate; S42.202D Unspecified fracture of upper end of left humerus, subsequent encounter for fracture with routine healing; S46.212D Strain of muscle, fascia and tendon of other parts of biceps, left arm, subsequent encounter; H54.7 Unspecified visual loss; C54.1 Malignant neoplasm of endometrium; E11.319 Type 2 diabetes mellitus with unspecified diabetic retinopathy without macular edema; I25.10 Atherosclerotic heart disease of native coronary artery without angina pectoris; E78.00 Pure hypercholesterolemia, unspecified; K21.9 Gastro-esophageal reflux disease without esophagitis; N18.3 Chronic kidney disease, stage 3 (moderate); I12.9 Hypertensive chronic kidney disease with stage 1 through stage 4 chronic kidney disease, or unspecified chronic kidney disease; M19.91 Primary osteoarthritis, unspecified site; R13.10 Dysphagia, unspecified; E11.22 Type 2 diabetes mellitus with diabetic chronic kidney disease; I35.0 Nonrheumatic aortic (valve) stenosis; F41.1 Generalized anxiety disorder; M10.9 Gout, unspecified; E78.5 Hyperlipidemia, unspecified; K59.00 Constipation, unspecified; R11.0 Nausea; Z91.040 Latex allergy status; Z79.899 Other long term (current) drug therapy; Z68.31 Body mass index [BMI] 31.0-31.9, adult; Z95.1 Presence of aortocoronary bypass graft; Z95.2 Presence of prosthetic heart valve; Z90.710 Acquired absence of both cervix and uterus; Z90.722 Acquired absence of ovaries, bilateral; Z93.3 Colostomy status; Z99.81 Dependence on supplemental oxygen
CPT/HCPCS: 82962; 97110-GP; 97162-GP; A9270-GY; C9113; J2060; J2270; J2274; J2405; J2765; J3490